=== PATIENT | female | born 1990 | race Caucasian/White ===

== ENCOUNTER 2017-06-23 11:53 | Emergency (ER) | payer MEDICAID, SELFPAY ==
[2017-06-23 11:54] VITALS: BP 100/61; PULSE 66; RESP 20; TEMP 36.8; O2SAT 99; BMI 25.0
--- NOTE | 2017-06-23 12:05 | XR_ITS ---
XR chest 2V HISTORY: ITS.REASON: CHEST PAIN ORDERING PHYSICIAN: Cate Salmon MD PATIENT AGE: 26 years COMPARISON: 06/26/2016 FINDINGS: The cardiomediastinal silhouette and pulmonary vascularity are within normal limits. The lungs are clear without infiltrates, suspicious nodules, or pleural effusions. No acute bony abnormalities. IMPRESSION: Negative chest, no acute finding
[2017-06-23 12:16] LABS: Microscopic, Urine URINE MICROSCOPIC (MICROSCOPIC)
[2017-06-23 12:19] LABS: Basophils % 0.3 % (0.1-2.0); Eosinophils # 0.1 K/mm3 (0.0-0.4); Eosinophils % 1.3 % (0.1-12.0); Hematocrit 42.9 % (37.0-47.0); Hemoglobin 14.4 g/dL (12.2-16.2); Lymphocytes # 2.2 K/mm3 (0.7-4.5); Lymphocytes % 27.7 K/mm3 (10-50); Mean Corpuscular HGB Conc 33.5 g/dL (31.8-35.4); Mean Corpuscular Hemoglobin 31.5 pg (27.0-31.2); Mean Corpuscular Volume 93.9 fl (81-99); Mean Platelet Volume 8.8 fl (7.4-10.4); Monocytes # 0.3 K/mm3 (0.1-1.0); Monocytes % 3.3 % (1.7-9.3); Neutrophils # 5.3 K/mm3 (1.8-7.8); Neutrophils % 67.4 % (37.0-80.0); Platelet Count 197 K/mm3 (142-424); Red Blood Count 4.57 M/mm3 (4.20-5.40); Red Cell Distribution Width 12.2 % (11.5-17.5); White Blood Count 7.9 K/mm3 (4.8-10.8)
[2017-06-23 12:21] LABS: Urine Pregnancy, HCG Qual. Negative (Negative)
[2017-06-23 12:22] LABS: Appearance,Urine CLEAR (Clear); Bilirubin,Urine Negative (Negative); Blood, Urine Negative (Negative); Color,Urine YELLOW (Yellow); Glucose,Urine (UA) Negative (Negative); Ketones,Urine Negative (Negative); Leukocyte Esterase,Urine 1+ (Negative); Nitrate,Urine Negative (Negative); Protein,Urine Negative (Negative); Urobilinogen,Urine 0.2 EU/dl (0.2)
[2017-06-23 12:25] LABS: Alanine Aminotransferase 28 U/L (12-78); Albumin Level 3.8 gm/dL (3.4-5.0); Albumin/Globulin Ratio 1.1 (1.1-1.8); Alkaline Phosphatase 57 U/L (46-116); Anion Gap 10.8 mEq/L (5-15); Aspartate Amino Transferase 16 U/L (15-37); Bilirubin,Total 0.4 mg/dL (0.2-1.0); Blood Urea Nitrogen 9 mg/dL (7-18); Calcium 8.8 mg/dL (8.5-10.1); Carbon Dioxide 27 mmol/L (21.0-32.0); Chloride 106 mmol/L (98-107); Creatinine Clearance Estimated 91 mL/min (0-300); Creatinine,Serum 0.93 mg/dL (0.55-1.02); Estimated Glomerular Filt Rate 73 ml/min (>60); GFR (African American) 89 ML/MIN (>60); Globulin 3.6 gm/dl (1.3-3.2); Glucose 90 mg/dL (74-106); Potassium 3.8 mmoL/L (3.5-5.1); Sodium 140 mmol/L (136-145); Total Protein,Serum 7.4 gm/dL (6.4-8.2)
--- NOTE | 2017-06-23 12:35 | HMH.EDCP ---
ED Disposition Clinical Impression: Atypical chest pain, Acute cervical myofascial strain, Tobacco abuse, Acute bronchitis, Left against medical advice Disposition: Home, Self-Care Condition on Discharge: Fair Referrals: Ludmila Murphy [Primary Care Provider] - - Critical Care Critical Care Time: No Attestation: On 06/23/17, the high probability of a clinically significant, sudden or life threatening deterioration of the following system(s) required my full and direct attention, intervention and personal management. The time I documented below is in addition to time spent performing reported procedures but includes the following listed in this critical care notation. Medical Decision Making - Dirk Inquiry Pt receiving controlled substance: No Dirk was queried for this patient: No Vital Signs: 06/23/17 11:54 Temperature 98.3 F Temperature Source Oral Pulse Rate [Right Brachial] 66 Respiratory Rate 20 Blood Pressure [Right Arm] 100/61 Blood Pressure Mean [Right Arm] 74 Blood Pressure Source [Right Arm] Automatic Cuff Blood Pressure Position [Right Arm] Supine 02 Sat by Pulse Oximetry 99 Oxygen Delivery Method Room Air - Lab Data Lab Results 06/23/17 12:02: Urine Color Yellow, Urine Appearance Clear, Urine pH 6.0, Ur Specific [place] 1.020, Urine Protein Negative, Urine Glucose (UA) Negative, Urine Ketones Negative, Urine Blood Negative, Urine Nitrate Negative, Urine Bilirubin Negative, Urine Urobilinogen 0.2, Ur Leukocyte Esterase 1+ A, Urine WBC 5-10, Ur Squamous Epith Cells 3-5, Urine Bacteria 1+, Urine Mucus Trace 06/23/17 12:02: WBC 7.9, RBC 4.57, Hgb 14.4, Hct 42.9, MCV 93.9, MCH 31.5 H, MCHC 33.5, RDW 12.2, Plt Count 197, MPV 8.8, Neut % (Auto) 67.4, Lymph % (Auto) 27.7, [place] % (Auto) 3.3, Eos % (Auto) 1.3, Baso % (Auto) 0.3, Neut # (Auto) 5.3, Lymph # (Auto) 2.2, [place] # (Auto) 0.3, Eos # (Auto) 0.1, Baso # (Auto) 0.0 06/23/17 12:02: Urine HCG, Qual Negative 06/23/17 12:02: Sodium 140, Potassium 3.8, Chloride 106, Carbon Dioxide 27, Anion Gap 10.8, BUN 9, Creatinine 0.93, Estimated Creat Clear 91, Estimated GFR 73, Est GFR ( Amer) 89, Glucose 90, Calcium 8.8, Total Bilirubin 0.4, AST 16, ALT 28, Alkaline Phosphatase 57, Total Protein 7.4, Albumin 3.8, Globulin 3.6 H, Albumin/Globulin Ratio 1.1 06/23/17 12:02: D-Dimer < 100 06/23/17 12:02: Total Creatine Kinase 66, CK-MB (CK-2) < 0.5, CK-MB (CK-2) Rel Index 0.8, Troponin I < 0.02 06/23/17 12:02: B-Natriuretic Peptide 15 Result diagrams: 06/23/17 12:02 06/23/17 12:02 Orders (Tests/Meds): ED MEDICATIONS Discontinued Medications Generic Name Dose Route Start Last Admin Trade Name Freq PRN Reason Stop Dose Admin Albuterol Sulfate 2.5 mg 06/23/17 12:34 Albuterol 0.083% 2.5mg/3ml [facility] 06/23/17 12:35 ONCE ONE Albuterol/Ipratropium 3 ml 06/23/17 13:18 Duoneb 3ml [facility] 06/23/17 13:19 ONCE ONE Methylprednisolone Sodium Succinate 125 mg 06/23/17 13:18 Solu-Medrol 125mg/2ml Vial IV 06/23/17 13:19 ONCE ONE ORDERS Category Date Time Status Chest XR 2 view (NOT portable) [XR chest 2V] Stat Exams 06/23/17 12:05 Taken Urine Culture Stat Micro 06/23/17 12:02 Received ECG Request by /Slim Stat Y 06/23/17 12:04 Ordered - ECG Data Tracing #1 Normal sinus 62/min baseline artifact nonspecific ST wave and T-wave changes no acute. ECG initial impression date: 06/23/17 ECG initial impression time: 12:37 Medical Decision Narrative: Although asked the patient in my HPI she had history of asthma she denied. Will order albuterol I was told that she has a neb machine at home that she uses for her bronchitis. Her d-dimer was normal. the patient had the breathing is better her chest tightness improved after the first breathing treatment she declined a second troponin and she will sign AGAINST MEDICAL ADVICE. Chest Pain HPI - General Chief Complaint: PAIN Stated Complaint: PAIN
[2017-06-23 12:37] LABS: Bacteria,Urine 1+ /lpf; Mucus,Urine Trace /lpf
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
[2017-06-23 12:59] LABS: CKMB Relative Index 0.8 U/L (0-4.0); Creatine Kinase 66 U/L (26-192); Creatine Kinase MB < 0.5 mg/ml (0.0-3.6); Troponin I < 0.02 ng/ml (0.00-0.06)
[2017-06-23 13:16] LABS: D-Dimer < 100 (0-400)
[2017-06-23 14:14] VITALS: BP 127/80; PULSE 78; RESP 16; TEMP 36.7; O2SAT 98
== END 2017-06-23 14:14 | disposition home or self-care (01) ==
PROVIDERS: Emergency Provider Emergency Medicine; Family Provider Family Medicine Geriatric Medicine; PCP Family Medicine Geriatric Medicine
DX: R07.89 Other chest pain (principal); S16.1XXA Strain of muscle, fascia and tendon at neck level, initial encounter; F17.210 Nicotine dependence, cigarettes, uncomplicated; J20.9 Acute bronchitis, unspecified
CPT/HCPCS: 71046; 80053; 81001; 81025; 82550; 82553; 83880; 84484; 85025; 85378; 87086; 93005; 96374; 99282

== ENCOUNTER → 2018-02-02 20:21 | Outpatient (CLI) | payer MEDICAID, SELFPAY | PROVIDERS: PCP Nurse Practitioner Family; Visit Provider Nurse Practitioner Family | DX: J02.9 Acute pharyngitis, unspecified (principal) ==

== ENCOUNTER 2018-08-10 15:05 | Outpatient (CLI) | payer MEDICAID, SELFPAY ==
[2018-08-10 15:30] VITALS: BP 107/55; PULSE 82; RESP 18; TEMP 37; O2SAT 97; BMI 32.0
== END 2018-08-10 16:00 | disposition home or self-care (01) ==
LOC: OBOUT 15:08 → OB 15:10
PROVIDERS: PCP Nurse Practitioner Family; Visit Provider Obstetrics & Gynecology
DX: O26.893 Other specified pregnancy related conditions, third trimester (principal); Z3A.29 29 weeks gestation of pregnancy; W01.0XXA Fall on same level from slipping, tripping and stumbling without subsequent striking against object, initial encounter
CPT/HCPCS: 59025

== ENCOUNTER 2018-08-10 16:05 | Emergency (ER) | payer MEDICAID, SELFPAY ==
[2018-08-10 16:10] VITALS: BP 108/69; PULSE 89; RESP 18; TEMP 36.6; O2SAT 98; BMI 32.2
[2018-08-10 16:18] VITALS: BP 108/69; PULSE 89; RESP 18; TEMP 36.6; O2SAT 98; BMI 32.0
--- NOTE | 2018-08-10 16:22 | XR_ITS ---
XR ankle RT min 3V HISTORY: ITS.REASON: fall, pain ORDERING PHYSICIAN: Norbert Barba MD PATIENT AGE: 27 years Comparison: None FINDINGS: No fracture or dislocation. No lytic or blastic change. There is normal mineralization.. The joint spaces are well-preserved. No significant degenerative/arthritic changes. No erosive changes evident. IMPRESSION: Negative ankle, no acute finding
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
[2018-08-10 17:05] VITALS: BP 108/69; PULSE 89; RESP 18; TEMP 36.6; O2SAT 98
== END 2018-08-10 17:13 | disposition home or self-care (01) ==
PROVIDERS: Emergency Provider Nurse Practitioner Family; PCP Nurse Practitioner Family
DX: S93.401A Sprain of unspecified ligament of right ankle, initial encounter (principal); W01.0XXA Fall on same level from slipping, tripping and stumbling without subsequent striking against object, initial encounter; Y92.019 Unspecified place in single-family (private) house as the place of occurrence of the external cause
CPT/HCPCS: 73610; 99201

== ENCOUNTER 2019-08-13 14:47 | Emergency (ER) | payer OTHER, MEDICAID, SELFPAY ==
[2019-08-13 14:48] VITALS: BMI 27.4
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
[2019-08-13 14:53] VITALS: BP 127/70; PULSE 89; RESP 16; TEMP 36.9; O2SAT 98
[2019-08-13 15:06] LABS: Basophils % 0.2 % (0.1-2.0); Eosinophils # 0.1 K/mm3 (0.0-0.4); Eosinophils % 1.1 % (0.1-12.0); Hematocrit 41.1 % (37.0-47.0); Hemoglobin 13.9 g/dL (12.2-16.2); Lymphocytes # 1.6 K/mm3 (0.7-4.5); Lymphocytes % 16.3 % (10-50); Mean Corpuscular HGB Conc 33.9 g/dL (31.8-35.4); Mean Corpuscular Hemoglobin 30.4 pg (27.0-31.2); Mean Corpuscular Volume 89.7 fl (81-99); Mean Platelet Volume 9.5 fl (7.4-10.4); Monocytes # 0.4 K/mm3 (0.1-1.0); Monocytes % 3.8 % (1.7-9.3); Neutrophils # 7.7 K/mm3 (1.8-7.8); Neutrophils % 78.6 % (37.0-80.0); Platelet Count 165 K/mm3 (142-424); Red Blood Count 4.58 M/mm3 (4.20-5.40); Red Cell Distribution Width 12.5 % (11.5-17.5); White Blood Count 9.7 K/mm3 (4.8-10.8)
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
[2019-08-13 15:12] LABS: Alanine Aminotransferase 25 U/L (12-78); Albumin Level 4.4 g/dl (3.5-5.0); Albumin/Globulin Ratio 1.8 (1.1-1.8); Alkaline Phosphatase 50 U/L (38-126); Anion Gap 8.4 mEq/L (5-15); Aspartate Amino Transferase 34 U/L (14-36); Bilirubin,Total 0.2 mg/dl (0.2-1.3); Blood Urea Nitrogen 11 mg/dl (7-17); Calcium 9.9 mg/dl (8.4-10.2); Carbon Dioxide 25 mmol/L (22.0-30.0); Chloride 107 mmol/L (98-107); Creatinine Clearance Estimated 129 mL/min (50-200); Estimated Glomerular Filt Rate 100 ml/min (>60); GFR (African American) 121 ML/MIN (>60); Globulin 2.5 g/dL (1.3-3.2); Glucose 122 mg/dl (74-100); Potassium 3.4 mmoL/L (3.5-5.1); Sodium 137 mmol/L (136-145); Total Protein,Serum 6.9 g/dl (6.3-8.2)
[2019-08-13 15:47] VITALS: BP 127/78; PULSE 74; RESP 20; O2SAT 100
[2019-08-13 16:30] VITALS: BP 112/68; PULSE 84; RESP 20; O2SAT 100
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
--- NOTE | 2019-08-13 16:44 | PC.NURSE ---
advised I could remove pt c-collar. Went in and removed c-collar at this time
--- NOTE | 2019-08-13 17:15 | PC.NURSE ---
WENT AND CLEANED ALL HER ABRASIONS , PT HAS A COUPLE THAT NEEDS SUTURED DR CANTRELL GOING BACK IN TO DO THAT
--- NOTE | 2019-08-13 18:28 | PC.NURSE ---
PSO dressing applied to lt knee and lt ankle
[2019-08-13 18:31] VITALS: BP 115/74; PULSE 78; RESP 16; TEMP 36.6; O2SAT 98
[2019-08-23 10:33] LABS: POC Glucose,Bedside 126 (70-110)
== END 2019-08-13 18:33 | disposition home or self-care (01) ==
PROVIDERS: Emergency Provider Family Medicine
DX: S91.012A Laceration without foreign body, left ankle, initial encounter (principal); V58.0XXA Driver of pick-up truck or van injured in noncollision transport accident in nontraffic accident, initial encounter; Y92.413 State road as the place of occurrence of the external cause; Z23 Encounter for immunization; S06.0X0A Concussion without loss of consciousness, initial encounter; S33.5XXA Sprain of ligaments of lumbar spine, initial encounter; M25.512 Pain in left shoulder; M25.562 Pain in left knee
CPT/HCPCS: 12001; 70450; 71045; 72125; 72170; 73030; 73090; 73560; 80053; 82962; 85025; 90471; 90715; 96374; 96375; 99282; J2405

== ENCOUNTER 2020-11-19 10:56 | Emergency (ER) | payer MEDICAID, SELFPAY ==
[2020-11-19 11:44] VITALS: BP 109/71; PULSE 73; RESP 19; TEMP 36.9; O2SAT 99; BMI 27.2
--- NOTE | 2020-11-19 11:51 | HMH.EDUTC ---
[facility] [place] Disposition Clinical Impression: Strep throat Disposition: Home, Self-Care Condition on Discharge: Good Instructions: DI for COVID-19 (Suspected or Confirmed ), Coronavirus Disease 2019, Preventing the Spread of Coronavirus Discharge Instructions, Strep Throat (Alternative Therapy), DI for Strep Throat Additional Instructions: *Monitor Temp, Over the counter Motrin or Tylenol as directed/as needed Tylenol every 4 hours and Motrin every 6 hours (as long as your family doctor has told you that you can take it) for fever or pain. and straight to ER if unable to lower temp less than 101.0 after medication given *Warm salt water gargles may help to soothe the throat *Throat Lozenges *Warm fluids like tea with honey may help to soothe the throat *Sleep elevated *Humidifier/Vaporizer *Bromfed may cause drowsiness. Know how it effects you (your child) before driving, caring for small child, or sending your child to school. Not other antihistamines/allergy medications while taking bromfed Your throat swab was sent for culture. Those results are typically sent to your primary care. Be sure to follow up in 2-3 days with your family doctor/primary care physician if no improvement so they can review those result and treat if necessary. If you don?t have a primary care doctor, I recommend you get one but in the mean time, you will have to return to a walk in clinic Follow up IMMEDIATELY for new or worsening symptoms or no Noticeable improvement over the next 48-72 hours. 911 for difficulty breathing or swallowing You were tested for today for COVID19 your test result should be back in the next 24-48 hours, you may call to the [facility] to see if your test results are back in the next 48 hours [phone] [facility] hours are 9am-9pm You was given a handout with instructions for Self Quarantine and Self isolation for while you wait on test results and what to do if they are positive If you are positive the Health Dept will be contacting you also Prescriptions: Amoxicillin [Amoxicillin 500mg Cap] 500 mg PO TID #30 cap Transmission Status: Pending to [facility] Brompheniramine/Pseudoephed/Dm [Bromfed Dm Cough Syrup] 5 - 10 ml PO Q46H PRN #200 ml PRN Reason: Cough Transmission Status: Pending to [facility] Fluconazole [Diflucan 150mg tab] 150 mg PO ONCE #1 tab Transmission Status: Pending to [facility] Referrals: Ludmila Murphy [Primary Care Provider] - As needed Forms: Work/School Release Time of Disposition: 11:56 Medical Decision Making - Dirk Inquiry Pt receiving controlled substance: No Dirk was queried for this patient: No Vital Signs: 11/19/20 11:44 Temperature 98.4 F Temperature Source Oral Pulse Rate [Left] 73 Respiratory Rate 19 Blood Pressure [Right Arm] 109/71 L Blood Pressure Mean [Right Arm] 83 02 Sat by Pulse Oximetry 99 - Lab Data Lab results reviewed: Yes: I reviewed the patient's lab results. Orders (Tests/Meds): ORDERS Category Date Time Status Covid-19 Nasal PCR ([facility]) Routine Lab 11/19/20 11:46 Ordered Medical Decision Narrative: Patient reports had Tubal [facility] [place] HPI - General Stated complaint: sore throat, congestion, ear pain Time Seen by Provider: 11/19/20 11:51 Mode of Arrival: Ambulatory Source of Information: Patient Limitations: No Limitations Description of Symptoms (Recalled from Triage Doc. by RN): pt c/o sore throat, WALKER, ear and chest pain, and soa ongoing for two days. HEENT Symptoms (Recalled from RN notes): Yes (sore throat, ear aches, WALKER) Resp Symptoms (Recalled from RN notes): Yes (soa) Skin Symptoms (Recalled from RN notes): No MS Symptoms (Recalled from RN notes): No Functional Status (Recalled from RN notes): na - History of Present Illness Provider Complaint: Patient state that she has been having sore throat States her throat has blisters on it and it rivas in her chest when she coughs States that she has been having fa
[2020-11-19 11:59] VITALS: BP 113/74; PULSE 74; RESP 18; TEMP 36.9
[2020-11-19 12:04] LABS: UTC Strep Screen (Rapid) Positive (Negative)
== END 2020-11-19 12:05 | disposition home or self-care (01) ==
PROVIDERS: Emergency Provider Nurse Practitioner; PCP Family Medicine Geriatric Medicine
DX: J02.0 Streptococcal pharyngitis (principal); Z20.822 Contact with and (suspected) exposure to COVID-19
CPT/HCPCS: 87880; 99203; G0463; U0003

== ENCOUNTER → 2021-01-15 16:20 | Outpatient (CLI) | payer MEDICAID, SELFPAY | PROVIDERS: PCP Family Medicine Geriatric Medicine; Visit Provider Nurse Practitioner | DX: Z20.822 Contact with and (suspected) exposure to COVID-19 (principal) | CPT/HCPCS: C9803; U0003; U0005 ==

== ENCOUNTER 2021-03-30 11:02 | Emergency (ER) | payer MEDICAID, SELFPAY ==
[2021-03-30 12:57] VITALS: BP 0/0; PULSE 0; RESP 0; TEMP -17.7; TEMP 0
== END 2021-03-30 12:58 | disposition left against medical advice (07) ==
PROVIDERS: Emergency Provider Nurse Practitioner; PCP Family Medicine Geriatric Medicine
DX: Z20.822 Contact with and (suspected) exposure to COVID-19 (principal)

== ENCOUNTER → 2021-05-03 19:14 | Outpatient (CLI) | payer MEDICAID, SELFPAY | PROVIDERS: Visit Provider Nurse Practitioner Family | DX: Z20.822 Contact with and (suspected) exposure to COVID-19 (principal) | CPT/HCPCS: C9803; U0003; U0005 ==

== ENCOUNTER → 2021-05-05 19:50 | Outpatient (CLI) | payer MEDICAID, SELFPAY | PROVIDERS: Visit Provider Nurse Practitioner Family | DX: U07.1 COVID-19 (principal) | CPT/HCPCS: C9803; U0003; U0005 ==

== ENCOUNTER 2021-05-10 15:25 | Emergency (ER) | payer MEDICAID, SELFPAY ==
--- NOTE | 2021-05-10 15:38 | HMH.EDUTC ---
[facility] [place] Disposition Clinical Impression: COVID-19 virus test result unknown Disposition: Home, Self-Care Condition on Discharge: Good Instructions: Preventing the Spread of Coronavirus Discharge Instructions, DI for COVID-19 (Suspected or Confirmed ) Additional Instructions: Drink plenty of fluids. Take tylenol for pain or fever. Return if you begin to have difficulty breathing. Follow up with your regular doctor. GO TO THE ER FOR ANY WORSENING SYMPTOMS Quarantine until you know the results of your covid-19 test. Notify your school or workplace of your results and follow their instructions regarding return to work/school. Referrals: Ludmila Murphy [Primary Care Provider] - Time of Disposition: 16:02 Medical Decision Making - Medical Records Medical records reviewed: No: I reviewed the patient's medical records. - Dirk Inquiry Pt receiving controlled substance: No [facility] [place] HPI - General Stated complaint: covid test Time Seen by Provider: 05/10/21 15:38 - History of Present Illness Provider Complaint: She is here to have a covid-19 test done. She needs a negative one to start her new job at [employer]. She had covid-19 about 2 weeks ago, but she states that she is completely better. - Related Data Home Medications Medication Instructions Recorded Confirmed levonorgestrel 0.15 mg-ethinyl 1 tab PO tab 05/03/21 05/05/21 estradiol 30 mcg tablets,3 mos pack(91) naproxen 500 mg tablet 500 mg PO tab 05/03/21 05/05/21 Allergies Allergy/AdvReac Type Severity Reaction Status Date / Time No Known Allergies Allergy Verified 05/05/21 12:06 [facility] History - Hepatitis A Screen Attestation statement:: This patient has been screened for Hepatitis A risk factors. I have reviewed the patient's past medical history: Yes Other Medical History: Reports: Other Other Surgeries: Yes: Cholecystectomy, Dilation and Curettage, Other. No: Comment: wisdom teeth - Social History Smoking Status: Former smoker Tobacco Type: cigarettes Alcohol Intake: never Alcohol Intake Frequency:: holidays/special occasions only Occupational Status: employed Household Members: family Family Hx:: No significant family history ROS Obtained: Yes All systems reviewed & no additional complaints - Constitutional Constitutional: Reports system reviewed and no additional complaints, except as docu - Eyes Eyes: Reports system reviewed and no additional complaints, except as docu - ENT Ears, Nose, Mouth, and Throat: Reports system reviewed and no additional complaints, except as docu - Cardiovascular Cardiovascular: Reports system reviewed and no additional complaints, except as docu - Respiratory Respiratory: Reports system reviewed and no additional complaints, except as docu - Gastrointestinal Gastrointestingal: Reports: system reviewed and no additional complaints, except as docu Physical Exam - General General appearance: alert, in no apparent distress - Head Head exam: atraumatic, normocephalic, normal inspection - Eye Eye exam: Present: normal appearance, PERRL, EOMI - ENT ENT exam: Present: normal exam, normal oropharynx, mucous membranes moist, TM's normal bilaterally, normal external ear exam - Neck Neck exam: Present: normal inspection, full ROM, trachea midline. Absent: meningismus, lymphadenopathy - Chest Chest inspection: Present: normal inspection, symmetric chest wall rise. Absent: tenderness - Respiratory Respiratory exam: Present: normal lung sounds bilaterally. Absent: respiratory distress - Cardiovascular Cardiovascular exam: Present: regular rate, normal rhythm. Absent: JVD - Abdominal Exam Abdominal exam: Present: soft, normal bowel sounds. Absent: distention, tenderness, guarding - Extremities Exam Extremities exam: Present: normal inspection, full ROM, normal capillary refill. Absent: calf tenderness - Back Exam Back exam: Present: normal inspect
[2021-05-10 16:15] VITALS: BP 00/0; PULSE 0; RESP 0; TEMP -17.7; TEMP 0
[2021-05-10 16:18] VITALS: BP 121/72; PULSE 72; RESP 18; TEMP 37.6; O2SAT 98; BMI 31.2
== END 2021-05-10 16:21 | disposition home or self-care (01) ==
PROVIDERS: Emergency Provider Nurse Practitioner Family; PCP Family Medicine Geriatric Medicine
DX: Z20.822 Contact with and (suspected) exposure to COVID-19 (principal); F17.290 Nicotine dependence, other tobacco product, uncomplicated
CPT/HCPCS: 99202; C9803; G0463; U0003; U0005

== ENCOUNTER 2021-10-01 14:02 | Emergency (ER) | payer MEDICAID, SELFPAY ==
--- NOTE | 2021-10-01 14:07 | XR_ITS ---
FINAL REPORT CLINICAL HISTORY: pain, pt states that she has been experiencing pain in her c-spine and right shoulder for about a month and this morning she pulled up on her truck to get in and felt a pop now she is experiencing worsening pain with lack of mobility. FINDINGS: RIGHT SHOULDER: 3 views of the right shoulder were obtained. There is no acute fracture or dislocation. The joint spaces are intact. There is no soft tissue abnormality. IMPRESSION: No acute fracture Reviewed, Interpreted and Dictated by Ravi Khan III, MD Transcribed by Brie Mckeon Authenticated and [facility]
--- NOTE | 2021-10-01 14:07 | XR_ITS ---
FINAL REPORT CLINICAL HISTORY: pain, pt states that she has been experiencing pain in her c-spine and right shoulder for about a month and this morning she pulled up on her truck to get in and felt a pop now she is experiencing worsening pain with lack of mobility. FINDINGS: CERVICAL SPINE 3 were obtained. There is no acute fracture. There is no malalignment. There is straightening of the normal cervical curvature which could be due to positioning or muscle spasm. The disc spaces are preserved. There is no soft tissue abnormality. IMPRESSION: No acute bony abnormality. Reviewed, Interpreted and Dictated by Ravi Khan III, MD Transcribed by Brie Mckeon Authenticated and [facility]
--- NOTE | 2021-10-01 14:08 | HMH.EDUTC ---
[facility] [place] Disposition Clinical Impression: Torticollis Disposition: Home, Self-Care Condition on Discharge: Good Instructions: Torticollis, DI for Torticollis, Methylprednisolone Injection, Ketorolac Injection Additional Instructions: Go home and rest. It would be best if you rested tomorrow too. No heavy lifting. No twisting. Take the oral medications as directed. The muscle relaxer (cyclobenzaprine--Flexeril) will make you drowsy, so don't drive or operate heavy machinery after taking it. Don't start the oral steroids (medrol dose pack) until tomorrow, since you had the shots in here today. Follow up with your regular doctor. GO TO THE ER FOR ANY WORSENING SYMPTOMS OR CONCERN Prescriptions: Cyclobenzaprine HCl [Cyclobenzaprine 10mg Tab] 10 mg PO BIDP PRN #20 tab PRN Reason: Muscle Spasm Transmission Status: Received by [facility] methylPREDNISolone [Medrol] 4 mg PO DIRECTED 6 Days #21 packet Transmission Status: [facility] Referrals: Sharmin Awad APRN [Primary Care Provider] - Forms: Work/School Release Time of Disposition: 15:00 Medical Decision Making - Medical Records Medical records reviewed: No: I reviewed the patient's medical records. - Dirk Inquiry Pt receiving controlled substance: No Vital Signs: 10/01/21 14:18 10/01/21 15:02 Temperature 98.8 F 98.8 F Temperature Source Oral Pulse Rate 74 Pulse Rate [Left Radial] 74 Respiratory Rate 17 17 Blood Pressure 100/65 L Blood Pressure [Right Arm] 100/65 L Blood Pressure Mean [Right Arm] 76 02 Sat by Pulse Oximetry 100 Orders (Tests/Meds): ED MEDICATIONS Discontinued Medications Generic Name Dose Route Start Last Admin Trade Name Freq PRN Reason Stop Dose Admin Ketorolac Tromethamine 60 mg 10/01/21 14:43 10/01/21 14:59 Ketorolac 60mg/2ml Vial IM 10/01/21 14:44 60 mg ONCE ONE Administration Methylprednisolone Sodium Succinate 125 mg 10/01/21 14:43 10/01/21 14:59 Methylprednisolone Sod Succ 125mg Vial IM 10/01/21 14:44 125 mg ONCE ONE Administration [facility] [place] HPI - General Stated complaint: rt shoulder pain Time Seen by Provider: 10/01/21 14:08 - History of Present Illness Provider Complaint: She states that for around the last 3 weeks she has had a stiff neck, pain with turning her neck certain ways, and upper back pain that radiates to her right shoulder and to her neck at times. She denies any falls or injuries that preceded her symptoms starting. - Related Data Home Medications Medication Instructions Recorded Confirmed levonorgestrel 0.15 mg-ethinyl 1 tab PO tab 05/03/21 05/05/21 estradiol 30 mcg tablets,3 mos pack(91) naproxen 500 mg tablet 500 mg PO tab 05/03/21 05/05/21 Previous Rx's Medication Instructions Recorded Cyclobenzaprine HCl 10 mg PO BIDP PRN #20 tab 10/01/21 [Cyclobenzaprine 10mg Tab] methylPREDNISolone [Medrol] 4 mg PO DIRECTED 6 Days #21 10/01/21 packet Allergies Allergy/AdvReac Type Severity Reaction Status Date / Time No Known Allergies Allergy Verified 10/01/21 14:22 [facility] History - Hepatitis A Screen Attestation statement:: This patient has been screened for Hepatitis A risk factors. I have reviewed the patient's past medical history: Yes Other Medical History: Reports: Other Other Surgeries: Yes: Cholecystectomy, Dilation and Curettage, Other. No: Comment: wisdom teeth - Social History Smoking Status: Former smoker Tobacco Type: cigarettes Alcohol Intake: never Alcohol Intake Frequency:: holidays/special occasions only Occupational Status: employed Household Members: family Family Hx:: No significant family history ROS Obtained: Yes All systems reviewed & no additional complaints - Constitutional Constitutional: Denies chills, Denies fever(s), Denies headache(s), Denies lethargy, Denies malaise - Eyes Eyes: Denies change in vision, Denies dry eyes - EN
[2021-10-01 14:18] VITALS: BP 100/65; PULSE 74; RESP 17; TEMP 37.1; O2SAT 100; BMI 29.2
[2021-10-01 15:02] VITALS: BP 100/65; PULSE 74; RESP 17; TEMP 37.1
== END 2021-10-01 15:09 | disposition home or self-care (01) ==
PROVIDERS: Emergency Provider Nurse Practitioner Family; PCP Nurse Practitioner Family
DX: M25.511 Pain in right shoulder (principal); M43.6 Torticollis
CPT/HCPCS: 72040; 73030; 96374; 99284

== ENCOUNTER 2021-10-18 22:59 | Emergency (ER) | payer MEDICAID, SELFPAY ==
[2021-10-18 23:12] VITALS: BP 100/60; PULSE 88; RESP 18; TEMP 36.8; O2SAT 98; BMI 29.2
--- NOTE | 2021-10-18 23:18 | CT_ITS ---
PROCEDURE INFORMATION: Exam: CT Abdomen And Pelvis Without Contrast Exam date and time: 10/18/2021 11:29 PM Age: 31 years old Clinical indication: Abdominal pain; Other: Lower abdomen and bilateral flanks; Prior surgery; Surgery date: 6+ months; Surgery type: Gb tubal ligation; Additional info: Abd pain TECHNIQUE: Imaging protocol: Computed tomography of the abdomen and pelvis without contrast. Radiation optimization: All CT scans at this facility use at least one of these dose optimization techniques: automated exposure control; mA and/or kV adjustment per patient size (includes targeted exams where dose is matched to clinical indication); or iterative reconstruction. COMPARISON: ABDPELW CT ABD PELVIS W/ CONTRAST 04/15/2016 9:34 PM FINDINGS: Liver: Normal. Gallbladder and bile ducts: Gallbladder surgically absent. Pancreas: Normal. Spleen: Splenic calcifications, compatible with prior granulomatous disease. Adrenal glands: Normal. No mass. Kidneys and ureters: Mild right hydroureteronephrosis, without obstructive etiology identified. No urolithiasis. Stomach and bowel: Normal. Appendix: Appendix normal. Intraperitoneal space: Unremarkable. No free air. No significant fluid collection. Vasculature: Unremarkable. No abdominal aortic aneurysm. Lymph nodes: Unremarkable. No enlarged lymph nodes. Urinary bladder: Findings may be secondary to ongoing urinary bladder pathology. Moderate urinary bladder wall thickening with adjacent associated fat stranding, compatible with acute cystitis. Reproductive: Unremarkable as visualized. Bones/joints: No acute abnormality. Soft tissues: Small fat containing periumbilical hernias, without acute complications. IMPRESSION: 1. Moderate urinary bladder wall thickening with adjacent associated fat stranding, compatible with acute cystitis. 2. Mild right hydroureteronephrosis, without obstructive etiology identified. Findings may be secondary to ongoing urinary bladder pathology. No urolithiasis.
[2021-10-18 23:27] LABS: Microscopic, Urine URINE MICROSCOPIC (MICROSCOPIC)
[2021-10-18 23:29] LABS: Appearance,Urine CLOUDY (Clear); Bilirubin,Urine Negative (Negative); Blood, Urine 3+ (Negative); Color,Urine YELLOW (Yellow); Glucose,Urine (UA) Negative (Negative); Ketones,Urine Negative (Negative); Leukocyte Esterase,Urine 2+ (Negative); Nitrate,Urine POSITIVE (Negative); PH,Urine 6.5 (5.0-8.5); Protein,Urine 2+ (Negative)
[2021-10-18 23:29] LABS: Basophils # 0.2 K/mm3 (0-0.2); Basophils % 1.5 % (0.1-2.0); Eosinophils # 0.2 K/mm3 (0.0-0.4); Eosinophils % 1.8 % (0.1-12.0); Hematocrit 43.7 % (37.0-47.0); Lymphocytes # 2.2 K/mm3 (0.7-4.5); Mean Corpuscular HGB Conc 32.1 g/dL (31.8-35.4); Mean Corpuscular Hemoglobin 32.5 pg (27.0-31.2); Mean Corpuscular Volume 101.3 fl (81-99); Mean Platelet Volume 8.8 fl (7.4-10.4); Monocytes # 0.6 K/mm3 (0.1-1.0); Monocytes % 5.9 % (1.7-9.3); Neutrophils # 6.6 K/mm3 (1.8-7.8); Neutrophils % 67.8 % (37.0-80.0); Platelet Count 179 K/mm3 (142-424); Red Blood Count 4.31 M/mm3 (4.20-5.40); White Blood Count 9.7 K/mm3 (4.8-10.8)
[2021-10-18 23:32] LABS: RBC,Urine 20-50 #/hpf (0-3); WBC,Urine TNTC #/hpf (0-3)
[2021-10-18 23:36] LABS: Amylase 63 U/L (30-110); Anion Gap 11.6 mEq/L (5-15); Blood Urea Nitrogen 12 mg/dl (7-17); Calcium 9.3 mg/dl (8.4-10.2); Carbon Dioxide 28 mmol/L (22.0-30.0); Chloride 100 mmol/L (98-107); Creatinine Clearance Estimated 110 mL/min (50-200); Estimated Glomerular Filt Rate 84 ml/min (>60); GFR (African American) 102 ML/MIN (>60); Glucose 111 mg/dl (74-100); Lipase 80 U/L (23-300); Magnesium 1.7 mg/dl (1.6-2.3); Potassium 3.6 mmoL/L (3.5-5.1); Sodium 136 mmol/L (136-145)
[2021-10-18 23:54] LABS: Procalcitonin 0.046 ng/mL (0.0-2.0)
[2021-10-18 23:58] LABS: Erythrocyte Sedimentation Rate 13 mm/hr (0-20)
--- NOTE | 2021-10-19 00:02 | HMH.EDUROGF ---
ED Disposition Clinical Impression: UTI (urinary tract infection) Qualifiers: Urinary tract infection type: acute cystitis Hematuria presence: without hematuria Qualified Code(s): N30.00 - Acute cystitis without hematuria Disposition: Home, Self-Care Condition on Discharge: Good Instructions: DI for Urinary Tract Infection (UTI) Additional Instructions: use meds and call pcp for urine culture results and follow up Prescriptions: levoFLOXacin [Levaquin 500mg tab] 500 mg PO DAILY #7 tab Transmission Status: Pending to [facility] Phenazopyridine HCl [Pyridium 200mg Tablet] 200 pow PO TID #6 tab Transmission Status: Pending to [facility] Referrals: Sharmin Awad APRN [Primary Care Provider] - - Critical Care Critical Care Time: No Attestation: On 10/18/21, the high probability of a clinically significant, sudden or life threatening deterioration of the following system(s) required my full and direct attention, intervention and personal management. The time I documented below is in addition to time spent performing reported procedures but includes the following listed in this critical care notation. Medical Decision Making - Medical Records Medical records reviewed: Yes: I reviewed the patient's medical records. - Dirk Inquiry Pt receiving controlled substance: No Vital Signs: 10/18/21 23:12 10/19/21 00:51 Temperature 98.2 F 98.2 F Temperature Source Oral Oral Pulse Rate 71 Pulse Rate [Apical] 88 Respiratory Rate 18 16 Blood Pressure 101/61 L Blood Pressure [Right Arm] 100/60 L Blood Pressure Mean [Right Arm] 73 Blood Pressure Source Automatic Cuff Blood Pressure Source [Right Arm] Automatic Cuff Blood Pressure Position Sitting Blood Pressure Position [Right Arm] Sitting 02 Sat by Pulse Oximetry 98 99 Oxygen Delivery Method Room Air Room Air - Lab Data Lab results reviewed: Yes: I reviewed the patient's lab results. Lab Results 10/18/21 23:12: Urine Color Yellow, Urine Appearance Cloudy, Urine pH 6.5, Ur Specific [place] 1.020, Urine Protein 2+, Urine Glucose (UA) Negative, Urine Ketones Negative, Urine Blood 3+, Urine Nitrate Positive, Urine Bilirubin Negative, Urine Urobilinogen 1.0, Ur Leukocyte Esterase 2+ A, Urine RBC 20-50, Urine WBC Tntc 10/18/21 23:15: WBC 9.7, RBC 4.31, Hgb 14.0, Hct 43.7, MCV 101.3 H, MCH 32.5 H, MCHC 32.1, RDW 13.0, Plt Count 179, MPV 8.8, Neut % (Auto) 67.8, Lymph % (Auto) 23.0, [place] % (Auto) 5.9, Eos % (Auto) 1.8, Baso % (Auto) 1.5, Neut # (Auto) 6.6, Lymph # (Auto) 2.2, [place] # (Auto) 0.6, Eos # (Auto) 0.2, Baso # (Auto) 0.2, ESR 13 10/18/21 23:15: Sodium 136, Potassium 3.6, Chloride 100, Carbon Dioxide 28, Anion Gap 11.6, BUN 12, Creatinine 0.80, Estimated Creat Clear 110, Estimated GFR 84, Est GFR ( Amer) 102, Glucose 111 H, Calcium 9.3, Magnesium 1.7, Amylase 63, Lipase 80, Procalcitonin 0.046 Result diagrams: 10/18/21 23:15 10/18/21 23:15 Orders (Tests/Meds): ED MEDICATIONS Generic Name Dose Route Start Last Admin Trade Name Freq PRN Reason Stop Dose Admin Sodium Chloride 1,000 mls @ 999 mls/hr 10/18/21 23:30 10/18/21 23:34 Sod Chlor 0.9% 1000ml Bag IV 10/19/21 00:30 999 mls/hr .Q1H1M ROBERTO Administration Ceftriaxone Sodium 1 gm/ 50 mls @ 100 mls/hr 10/19/21 00:15 10/19/21 00:06 Sodium Chloride IV 11/02/21 00:14 100 mls/hr Q24H ROBERTO Administration Discontinued Medications Generic Name Dose Route Start Last Admin Trade Name Freq PRN Reason Stop Dose Admin Acetaminophen/Codeine Phosphate 1 packet 10/19/21 00:55 10/19/21 00:56 Acetaminophen 300mg W/Codeine 30mg Take Home Pack (6) PO 10/19/21 00:56 1 packet ONCE ONE Administration Ketorolac Tromethamine 30 mg 10/18/21 23:18 10/18/21 23:33 Ketorolac 30mg/Ml Vial IV 10/18/21 23:19 30 mg ONCE ONE Administration Ondansetron HCl 4 mg 10/18/21 23:18 10/18/21 23:34 Ondansetron 4mg/2ml Vial IV 10/18/21 23:19 4 mg ON
[2021-10-19 00:51] VITALS: BP 101/61; PULSE 71; RESP 16; TEMP 36.8; O2SAT 99
[2021-10-19 00:57] VITALS: BP 101/60; PULSE 72; RESP 16; TEMP 36.2
== END 2021-10-19 01:09 | disposition home or self-care (01) ==
PROVIDERS: Emergency Provider Emergency Medicine; PCP Nurse Practitioner Family
DX: N30.00 Acute cystitis without hematuria (principal)
CPT/HCPCS: 74176; 80048; 81001; 82150; 83690; 83735; 84145; 85025; 85651; 87086; 87088; 87186; 96365; 96375; 99284; J0696; J2405

== ENCOUNTER 2022-01-16 10:04 | Emergency (ER) | payer MEDICAID, SELFPAY ==
--- NOTE | 2022-01-16 10:24 | EXP.UTC ---
Discharge Plan Disposition Patient Disposition: Home, Self-Care Condition: Good Prescriptions Prescriptions: New amoxicillin [amoxicillin] 500 mg tablet 500 mg PO TID 10 Days Qty: 30 0RF methylprednisolone 4 mg Tablets,Dose Pack 4 mg PO DIRECTED Qty: 21 0RF agcdjudldidkhfk-pcmucveok-WZ [Bromfed DM] 2-30-10 mg/5 mL Syrup 5 ml PO Q6H PRN (Reason: Cough) Qty: 240 0RF fluconazole [Diflucan] 150 mg tablet 150 mg PO ONCE Qty: 1 2RF No Action naproxen 500 mg tablet 500 mg PO Label Comments: TAKE 1 TABLET BY MOUTH TWICE DAILY WITH MEALS levonorgestrel-ethinyl estrad [Jolessa] 0.15 mg-30 mcg (91) tablets,dose pack,3 month 1 tab PO levofloxacin 500 MG tablet 500 mg PO DAILY Qty: 7 0RF phenazopyridine 200 MG tablet 200 pow PO TID Qty: 6 0RF cyclobenzaprine 10 MG tablet 10 mg PO BIDP PRN (Reason: Muscle Spasm) Qty: 20 0RF methylprednisolone 4 MG tablets,dose pack 4 mg PO DIRECTED 6 Days Qty: 21 0RF Referrals Follow up/Referrals: Sharmin Awad APRN [Primary Care Provider] - See instructions Activity Restrictions/Add. Instructions Additional Instructions/Restrictions: Drink plenty of fluids. Take tylenol or ibuprofen for pain or fever. Take the medications as directed. Follow up with your regular doctor. GO TO THE ER FOR ANY WORSENING SYMPTOMS Throw your tooth brush away and get a new one. Clinical Impressions Clinical Impression: Strep throat Instructions Patient Instructions: DI for Strep Throat Discharge ED Provider: Valdez Mosley [facility] General Stated complaint: sore throat, congestion, h/a Time Seen by Provider: 01/16/22 10:26 History of Present Illness Provider Complaint: She states that she has had a sore throat for the past 2 days. Her son was diagnosed with strep throat around 5 days ago. Related Data Home Medications Medication Instructions Recorded Confirmed levonorgestrel 0.15 mg-ethinyl 1 tab PO 05/03/21 05/05/21 estradiol 30 mcg tablets,3 mos pack(91) (Jolessa) naproxen 500 mg tablet 500 mg PO 05/03/21 05/05/21 Previous Rx's Medication Instructions Recorded cyclobenzaprine 10 mg tablet 10 mg PO BIDP PRN Muscle Spasm #20 10/01/21 tabs methylprednisolone 4 mg tablets in 4 mg PO DIRECTED 6 days #21 10/01/21 a dose pack packets levofloxacin 500 mg tablet 500 mg PO DAILY #7 tabs 10/19/21 phenazopyridine 200 mg tablet 200 pow PO TID #6 tabs 10/19/21 amoxicillin 500 mg tablet 500 mg PO TID 10 days #30 tabs 01/16/22 mrjjlodkoztsgqr-kniojkxwmqyuzth-JB 5 ml PO Q6H PRN Cough #240 mL 01/16/22 2 mg-30 mg-10 mg/5 mL oral syrup (Bromfed DM) fluconazole 150 mg tablet 150 mg PO ONCE #1 tab 01/16/22 (Diflucan) methylprednisolone 4 mg tablets in 4 mg PO DIRECTED #21 tabs 01/16/22 a dose pack Allergies Allergy/AdvReac Type Severity Reaction Status Date / Time No Known Allergies Allergy Verified 01/16/22 10:32 [facility] Social History Smoking Status: Former smoker alcohol intake: never current occupational status: employed Travel in the last 8 weeks: None household members: family ROS Obtained: Yes All systems reviewed & no additional complaints except as documented Constitutional Constitutional: Reports chills and Reports fever(s) Eyes Eyes: Denies eye discharge ENT Ears, Nose, Mouth, and Throat: Reports as per HPI Cardiovascular Cardiovascular: Denies chest pain Respiratory Respiratory: Denies chest congestion and Reports cough Gastrointestinal Gastrointestingal: Reports nausea; Denies abdominal pain, constipation, cramping, diarrhea or vomiting Musculoskeletal Musculoskeletal: Denies arthralgias Integumentary/Breasts Skin/Breast: Denies rash Neurologic Neurologic: Denies paresthesias Physical Exam General General appearance: alert and in no apparent distress Head Head exam: atraumatic, normocephalic and n
[2022-01-16 10:26] VITALS: BP 124/66; PULSE 75; RESP 18; TEMP 36.6; O2SAT 99; BMI 31.1
[2022-01-16 10:37] LABS: UTC Strep Screen (Rapid) Negative (Negative)
[2022-01-16 11:01] VITALS: BP 124/66; PULSE 75; RESP 18; TEMP 36.6
== END 2022-01-16 11:04 | disposition home or self-care (01) ==
PROVIDERS: Emergency Provider Nurse Practitioner Family; PCP Nurse Practitioner Family
DX: J02.9 Acute pharyngitis, unspecified (principal)
CPT/HCPCS: 87880; 99212; G0463

== ENCOUNTER 2022-02-14 10:11 | Emergency (ER) | payer OTHER, MEDICAID, SELFPAY ==
[2022-02-14 11:00] VITALS: BP 125/72; PULSE 75; RESP 20; TEMP 36.6; O2SAT 100; BMI 22.3
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
[2022-02-14 12:07] VITALS: BP 112/62; PULSE 68; RESP 20; TEMP 36.6; O2SAT 99
== END 2022-02-14 12:08 | disposition home or self-care (01) ==
PROVIDERS: Emergency Provider Student in an Organized Health Care Education/Training Program; PCP Nurse Practitioner Family
DX: S70.02XA Contusion of left hip, initial encounter (principal); Z79.1 Long term (current) use of non-steroidal anti-inflammatories (NSAID); Z79.3 Long term (current) use of hormonal contraceptives; Z79.52 Long term (current) use of systemic steroids; Z79.899 Other long term (current) drug therapy; V49.40XA Driver injured in collision with unspecified motor vehicles in traffic accident, initial encounter
CPT/HCPCS: 99283

== ENCOUNTER 2022-03-26 14:31 | Emergency (ER) | payer MEDICAID, SELFPAY ==
[2022-03-26] VITALS (8 sets, daily range): BP systolic 102–118; BP diastolic 58–75; PULSE 100–109; RESP 16–20; TEMP 36.4; O2SAT 98–99; BMI 30.2
--- NOTE | 2022-03-26 15:06 | CT_ITS ---
FINAL REPORT CLINICAL HISTORY: s/p hysterectomy, severe pain lower abd COMPARISON: 10/19/2021 FINDINGS: CT OF THE ABDOMEN AND PELVIS WITH CONTRAST Axial CT images of the abdomen and pelvis were obtained after the administration of oral and iv contrast. Coronal reformatted images were also obtained and reviewed.This study was performed with techniques to keep radiation doses as low as reasonably achievable (ALARA). Individualized dose reduction techniques using automated exposure control or adjustment of mA and/or kV according to the patient''s size were employed. Abdomen: The lung bases are clear. The heart is normal in size. The liver has an unremarkable appearance, without evidence of mass or biliary ductal dilatation. The spleen is unremarkable. No adrenal mass is present. The pancreas has an unremarkable appearance. The kidneys are normal, without evidence of mass or hydronephrosis. The aorta is normal in caliber. There is a small to mild of of free fluid in the abdomen. There is an umbilical hernia measuring 31 mm in transverse dimension containing fat. Pelvis: There has been presumed interval hysterectomy. Heterogeneous material is seen in the pelvis measuring up to 9.3 cm in transverse dimension, favor hemoperitoneum. Additionally, there appears to be a focal collection superior to this measuring 40 mm, worrisome for abscess. The appendix is not visualized. There is rectosigmoid wall thickening which may be related to edema or inflammation. There are multiple fluid-filled bowel loops which are nonspecific. The urinary bladder is unremarkable. IMPRESSION: Small to moderate amount of free fluid in the abdomen. Interval hysterectomy with heterogeneous material in the pelvis favored represent hemoperitoneum with additional fluid collection measuring 40 mm worrisome for abscess. Rectosigmoid wall thickening which may represent edema or inflammation. Reviewed, Interpreted and Dictated by Ravi Khan III, MD Transcribed by Stacey Hauser Authenticated and [facility]
--- NOTE | 2022-03-26 15:09 | HMH.EDGENADL ---
Discharge Plan Disposition Patient Disposition: Xfer Short-Term Hosp Condition: Fair Chief Complaint: Abdominal Pain Prescriptions Prescriptions: No Action naproxen 500 mg tablet 500 mg PO Label Comments: TAKE 1 TABLET BY MOUTH TWICE DAILY WITH MEALS levonorgestrel-ethinyl estrad [Jolessa] 0.15 mg-30 mcg (91) tablets,dose pack,3 month 1 tab PO levofloxacin 500 MG tablet 500 mg PO DAILY Qty: 7 0RF phenazopyridine 200 MG tablet 200 pow PO TID Qty: 6 0RF amoxicillin [amoxicillin] 500 mg tablet 500 mg PO TID 10 Days Qty: 30 0RF methylprednisolone 4 mg Tablets,Dose Pack 4 mg PO DIRECTED Qty: 21 0RF lnifzyrxcnedjvu-jdgqweivi-WH [Bromfed DM] 2-30-10 mg/5 mL Syrup 5 ml PO Q6H PRN (Reason: Cough) Qty: 240 0RF fluconazole [Diflucan] 150 mg tablet 150 mg PO ONCE Qty: 1 2RF methocarbamol [Methocarbamol] 750 mg tablet 750 mg PO Q6 PRN (Reason: Muscle Spasm) Qty: 30 0RF ondansetron [ondansetron] 4 mg tablet,disintegrating 4 mg PO TIDP PRN (Reason: Nausea) Qty: 10 0RF cyclobenzaprine 10 MG tablet 10 mg PO BIDP PRN (Reason: Muscle Spasm) Qty: 20 0RF methylprednisolone 4 MG tablets,dose pack 4 mg PO DIRECTED 6 Days Qty: 21 0RF Referrals Follow up/Referrals: Sharmin Awad APRN [Primary Care Provider] - See instructions Clinical Impressions Clinical Impression: Abscess of pelvis, Hemoperitoneum Instructions Patient Instructions: DI for Acute Abdominal Pain Discharge ED Provider: Arron Yarbrough General Adult HPI General Chief complaint: Abdominal Pain Stated complaint: Post op hysterectomy 03/16 lighted, weak Time Seen by Provider: 03/26/22 14:50 Mode of Arrival: Wheelchair Source of Information: Patient Limitations: No Limitations Description of Symptoms (Recalled from ER Triage Doc. by RN): Pt c/o increased abd pain that began approx 11 am this morning. Pt reports woke up feeling fine this morning. Pt reports had a vaginal hysterectomy 03/16/[address] [facility] by Dr. Stevenson. Pt reports last BM was this morning x2. Pt states has had trouble getting started urinating x2 days. History of Present Illness HPI narrative: Patient is a 35-year-old female with past medical history of recent cholecystectomy on 03-16-2022 who presents to the emergency department for evaluation of suprapubic and pelvic pain. Onset was acute, occurring this morning. Patient reportedly had severe pain in the postoperative course which was resolving. Over the last 48 hours patient has had clear discharge, worsening pelvic pain that is rising superiorly towards her epigastrium. Minimal p.o. intake. Decreased urine output. Current pain is severe, pelvic, radiating to the back. No other acute complaints at this time. Related Data Home Medications Medication Instructions Recorded Confirmed levonorgestrel 0.15 mg-ethinyl 1 tab PO 05/03/21 05/05/21 estradiol 30 mcg tablets,3 mos pack(91) (Castro) naproxen 500 mg tablet 500 mg PO 05/03/21 05/05/21 Previous Rx's Medication Instructions Recorded cyclobenzaprine 10 mg tablet 10 mg PO BIDP PRN Muscle Spasm #20 10/01/21 tabs methylprednisolone 4 mg tablets in 4 mg PO DIRECTED 6 days #21 10/01/21 a dose pack packets levofloxacin 500 mg tablet 500 mg PO DAILY #7 tabs 10/19/21 phenazopyridine 200 mg tablet 200 pow PO TID #6 tabs 10/19/21 amoxicillin 500 mg tablet 500 mg PO TID 10 days #30 tabs 01/16/22 bnllwgufzexelba-zyrloukzckmhlqm-QX 5 ml PO Q6H PRN Cough #240 mL 01/16/22 2 mg-30 mg-10 mg/5 mL oral syrup (Bromfed DM) fluconazole 150 mg tablet 150 mg PO ONCE #1 tab 01/16/22 (Diflucan) methylprednisolone 4 mg tablets in 4 mg PO DIRECTED #21 tabs 01/16/22 a dose pack methocarbamol 750 mg tablet 750 mg PO Q6 PRN Muscle Spasm #30 02/14/22 tabs ondansetron 4 mg disintegrating 4 mg PO TIDP PRN Nausea #10 tabs 02/14/22 tablet Allergies Allergy/AdvReac Type Severity Reaction Status Date /
[2022-03-26 15:28] LABS: Basophils % 0.2 % (0.1-2.0); Eosinophils # 0.1 K/mm3 (0.0-0.4); Eosinophils % 0.7 % (0.1-12.0); Hematocrit 35.4 % (37.0-47.0); Hemoglobin 11.6 g/dL (12.2-16.2); Lymphocytes # 0.5 K/mm3 (0.7-4.5); Lymphocytes % 6.7 % (10-50); Mean Corpuscular HGB Conc 32.9 g/dL (31.8-35.4); Mean Corpuscular Hemoglobin 30.6 pg (27.0-31.2); Mean Corpuscular Volume 93.1 fl (81-99); Mean Platelet Volume 8.4 fl (7.4-10.4); Monocytes # 0.3 K/mm3 (0.1-1.0); Monocytes % 3.6 % (1.7-9.3); Neutrophils # 6.3 K/mm3 (1.8-7.8); Neutrophils % 88.7 % (37.0-80.0); Platelet Count 311 K/mm3 (142-424); Red Cell Distribution Width 13.9 % (11.5-17.5); White Blood Count 7.1 K/mm3 (4.8-10.8)
[2022-03-26 15:30] LABS: MANUAL DIFFERENTIAL MANUAL DIFFERENTIAL (MANUAL DIFF)
[2022-03-26 15:37] LABS: Chloride 103 mmol/L (98-107); Sodium 138 mmol/L (136-145)
[2022-03-26 15:38] LABS: Potassium 3.8 mmoL/L (3.5-5.1)
[2022-03-26 15:40] LABS: Alanine Aminotransferase 76 U/L (12-78); Albumin Level 4.6 g/dl (3.5-5.0); Albumin/Globulin Ratio 1.6 (1.1-1.8); Alkaline Phosphatase 163 U/L (38-126); Anion Gap 14.8 mEq/L (5-15); Aspartate Amino Transferase 85 U/L (14-36); Blood Urea Nitrogen 13 mg/dl (7-17); Calcium 9.9 mg/dl (8.4-10.2); Carbon Dioxide 24 mmol/L (22.0-30.0); Creatinine Clearance Estimated 118 mL/min (50-200); Estimated Glomerular Filt Rate 84 ml/min (>60); GFR (African American) 102 ML/MIN (>60); Globulin 2.9 g/dL (1.3-3.2); Glucose 115 mg/dl (74-100); Total Protein,Serum 7.5 g/dl (6.3-8.2)
[2022-03-26 15:41] LABS: Lipase 27 U/L (23-300)
[2022-03-26 15:46] LABS: Lactic Acid 1.4 mmol/L (0.7-2.1)
--- NOTE | 2022-03-26 15:50 | ECG_ITS ---
APPROVED REPORT Exam: Resting ECG HR:96 bpm ECG Measurements Heart Rate 96 AXES MD 165 P 71 QRSd 92 QRS 45 QT 351 T -4 QTc 405 Conclusion SINUS RHYTHM INCOMPLETE RIGHT BUNDLE BRANCH BLOCK Poor r wave progression ABNORMAL ECG UNCONFIRMED REPORT Electronically signed by : Fran Cardona MD 03/27/2022 12:54:02
[2022-03-26 15:57] LABS: Lymphocytes % 11 % (10-50); Monocytes % 2 % (2-9); Neutrophils % 87 % (42-76); Platelet Estimate Normal; RBC Morphology Normal; Total Cells Counted 100
--- NOTE | 2022-03-26 16:19 | PC.NURSE ---
contacted lab to check on status of urine specimen, gino states she located it and will get them to run it.
[2022-03-26 16:22] LABS: Microscopic, Urine URINE MICROSCOPIC (MICROSCOPIC)
[2022-03-26 16:25] LABS: Appearance,Urine CLOUDY (Clear); Blood, Urine TRACE-I (Negative); Color,Urine YELLOW (Yellow); Glucose,Urine (UA) Negative (Negative); Ketones,Urine 3+ (Negative); Leukocyte Esterase,Urine 3+ (Negative); Nitrate,Urine Negative (Negative); Protein,Urine 1+ (Negative); Specific Gravity, Urine 1.025 (1.005-1.030)
--- NOTE | 2022-03-26 16:32 | EXP.PHA.CONS ---
Pharmacy Consult Date: 03/26/22 Time: 16:32 Referring provider: DR SALCEDO Reason for Consult:: VANCOMYCIN DOSING CONSULT Allergies Allergy/AdvReac Type Severity Reaction Status Date / Time No Known Allergies Allergy Verified 01/16/22 10:32 Home Medications Medication Instructions Recorded Confirmed Type levonorgestrel 0.15 mg-ethinyl 1 tab PO 05/03/21 05/05/21 History estradiol 30 mcg tablets,3 mos pack(91) (Rydera) naproxen 500 mg tablet 500 mg PO 05/03/21 05/05/21 History cyclobenzaprine 10 mg tablet 10 mg PO BIDP PRN Muscle Spasm #20 10/01/21 Rx tabs methylprednisolone 4 mg tablets in 4 mg PO DIRECTED 6 days #21 10/01/21 Rx a dose pack packets levofloxacin 500 mg tablet 500 mg PO DAILY #7 tabs 10/19/21 Rx phenazopyridine 200 mg tablet 200 pow PO TID #6 tabs 10/19/21 Rx amoxicillin 500 mg tablet 500 mg PO TID 10 days #30 tabs 01/16/22 Rx tbedonzjahnfmcb-ylfnrmljgdennep-VI 5 ml PO Q6H PRN Cough #240 mL 01/16/22 Rx 2 mg-30 mg-10 mg/5 mL oral syrup (Bromfed DM) fluconazole 150 mg tablet 150 mg PO ONCE #1 tab 01/16/22 Rx (Diflucan) methylprednisolone 4 mg tablets in 4 mg PO DIRECTED #21 tabs 01/16/22 Rx a dose pack methocarbamol 750 mg tablet 750 mg PO Q6 PRN Muscle Spasm #30 02/14/22 Rx tabs ondansetron 4 mg disintegrating 4 mg PO TIDP PRN Nausea #10 tabs 02/14/22 Rx tablet New Prescriptions to Start Prescriptions: Height: 1.55 m Weight: 72.575 kg Laboratory Results:: Laboratory Results - last 24 hr 03/26/22 15:19: WBC 7.1, RBC 3.80 L, Hgb 11.6 L, Hct 35.4 L, MCV 93.1, MCH 30.6, MCHC 32.9, RDW 13.9, Plt Count 311, MPV 8.4, Neut % (Auto) 88.7 H, Lymph % (Auto) 6.7 L, [place] % (Auto) 3.6, Eos % (Auto) 0.7, Baso % (Auto) 0.2, Neut # (Auto) 6.3, Lymph # (Auto) 0.5 L, [place] # (Auto) 0.3, Eos # (Auto) 0.1, Baso # (Auto) 0.0, Total Counted 100, Neutrophils % (Manual) 87 H, Lymphocytes % (Manual) 11, Monocytes % (Manual) 2, Platelet Estimate Normal, RBC Morphology Normal 03/26/22 15:19: Sodium 138, Potassium 3.8, Chloride 103, Carbon Dioxide 24, Anion Gap 14.8, BUN 13, Creatinine 0.80, Estimated Creat Clear 118, Estimated GFR 84, Est GFR ( Amer) 102, Glucose 115 H, Calcium 9.9, Total Bilirubin 2.0 H, AST 85 H, ALT 76, Alkaline Phosphatase 163 H, Total Protein 7.5, Albumin 4.6, Globulin 2.9, Albumin/Globulin Ratio 1.6 03/26/22 15:19: Lactate 1.4 03/26/22 15:19: Lipase 27 Assessment and Plan Assessment and plan all Dx Assessment and Plan for all problems:: Pharmacokinetic dosing service Objective: Age: 31 yo Serum creatinine: 0.8 mg/dL Height: 61.0 Inches Weight (kg): 72.575 Assessment: IBW (kg): 47.80 Dosing wt(kg): 72.575 Estimated Creatinine clearance (ml/min): 77.6 CRCL method: Cockcroft and Gault using ibw(default). Drug selected: Vancomycin Vd (liters): 54.4 (factor used: 0.75 L/kg) Carlos (hr-1): 0.069 Half life (hrs): 10.05 CLvanco=?? 3.754 L/hr Recommended dose: 1500 mg Interval: 18 hrs Infusion time (hrs): 2.0 Predicted peak (mcg/mL): 36.2 Predicted trough (mcg/mL): 12.00 Total body weight is being used for vancomycin dosing. Recommendations: Give Vancomycin 1500 mg q 18 hrs with an expected Cpeak of 36.2 mcg/ml and an expected Ctrough of 12.00 mcg/ml AUC 0-24 /VIOLET Data: VIOLET 0.5 mcg/mL:?? AUC/VIOLET:? 1065.5 VIOLET 1.0 mcg/mL:?? AUC/VIOLET:? 532.8 --------- VIOLET 1.5 mcg/mL:?? AUC/VIOLET:? 355.2 VIOLET 2.0 mcg/mL:?? AUC/VIOLET:? 266.4 Thank you for the consult
--- NOTE | 2022-03-26 16:36 | PC.NURSE ---
placed call to [facility] for Dr Conner, they were closed, called [facility] for ekg monitor MD for that service.
--- NOTE | 2022-03-26 16:42 | PC.NURSE ---
checked on pt at this time, family at [facility], pt states no needs at this time. Updated pt on POC(waiting bonding supervisor back from her home health cna or bonding supervisor staff), per verbalized understanding
[2022-03-26 16:53] LABS: Bilirubin,Urine 2+ (Negative)
[2022-03-26 17:04] LABS: Bacteria,Urine 2+ /lpf; Trichomonas,Urine 2+ /lpf; WBC,Urine 20-50 #/hpf (0-3)
--- NOTE | 2022-03-26 17:19 | PC.NURSE ---
[facility] called for F/u on ob returning call, they advised they were answering other calls at this time.
--- NOTE | 2022-03-26 17:43 | PC.NURSE ---
Dr Yarbrough spoke to [facility] , they gave him Dr Dalila jose, Dr daugherty speaking with Dr Conner at this time.
--- NOTE | 2022-03-26 17:51 | PC.NURSE ---
calling [facility] for pt transfer per ob MD Dr Conner acceptance
--- NOTE | 2022-03-26 18:00 | PC.NURSE ---
call radiology for a disc of pt images
--- NOTE | 2022-03-26 18:12 | PC.NURSE ---
updated pt on POC, pt accepted to [facility] room 146
--- NOTE | 2022-03-26 18:30 | PC.NURSE ---
Rashid called for transfer
--- NOTE | 2022-03-26 18:30 | PC.NURSE ---
Addendum entered by Tran Montemayor RN 03/26/22 19:04: [id number]- call back and spoke with janneth gilbert to notify her that pt will need flagyl r/t urine results r/t pt has vancomycin infusing at this time, she verbalized understanding. Original Note: report called vladimir stanley rn at [facility] at this time.
--- NOTE | 2022-03-26 19:04 | PC.NURSE ---
report given to [facility]
== END 2022-03-26 19:06 | disposition short-term general hospital (02) ==
PROVIDERS: Emergency Provider Emergency Medicine; PCP Nurse Practitioner Family
DX: R10.2 Pelvic and perineal pain (principal); R10.13 Epigastric pain; R33.9 Retention of urine, unspecified; R79.89 Other specified abnormal findings of blood chemistry; M62.838 Other muscle spasm; L02.91 Cutaneous abscess, unspecified; Z79.1 Long term (current) use of non-steroidal anti-inflammatories (NSAID); Z79.3 Long term (current) use of hormonal contraceptives; Z79.51 Long term (current) use of inhaled steroids; Z79.52 Long term (current) use of systemic steroids; Z79.899 Other long term (current) drug therapy; Z98.890 Other specified postprocedural states
CPT/HCPCS: 74177; 80053; 81001; 83605; 83690; 85007; 85025; 87040; 87086; 87088; 87186; 93005; 96361; 96374; 96375; 99285; J2405; J2543; Q9967

== ENCOUNTER 2022-09-09 18:14 | Emergency (ER) | payer MEDICAID, SELFPAY ==
[2022-09-09] VITALS (12 sets, daily range): BP systolic 92–131; BP diastolic 46–82; PULSE 53–85; RESP 17–24; TEMP 36.6; O2SAT 98–100; BMI 20.7
[2022-09-09 18:25] LABS: Coronavirus 19, PCR Not Detected (NotDetected); Influenza A, PCR Not Detected (NotDetected); Influenza B, PCR Not Detected (NotDetected)
[2022-09-09 18:32] LABS: Basophils % 0.3 % (0.1-2.0); Eosinophils # 0.2 K/mm3 (0.0-0.4); Eosinophils % 1.7 % (0.1-12.0); Hematocrit 46.5 % (37.0-47.0); Hemoglobin 15.2 g/dL (12.2-16.2); Lymphocytes # 2.5 K/mm3 (0.7-4.5); Lymphocytes % 20.1 % (10-50); Mean Corpuscular HGB Conc 32.7 g/dL (31.8-35.4); Mean Corpuscular Hemoglobin 29.3 pg (27.0-31.2); Mean Corpuscular Volume 89.4 fl (81-99); Mean Platelet Volume 8.8 fl (7.4-10.4); Monocytes # 0.4 K/mm3 (0.1-1.0); Monocytes % 3.3 % (1.7-9.3); Neutrophils # 9.5 K/mm3 (1.8-7.8); Neutrophils % 74.7 % (37.0-80.0); Platelet Count 260 K/mm3 (142-424); Red Cell Distribution Width 13.2 % (11.5-17.5); White Blood Count 12.7 K/mm3 (4.8-10.8)
[2022-09-09 18:35] LABS: Alanine Aminotransferase 61 U/L (12-78); Albumin Level 5.2 g/dl (3.5-5.0); Albumin/Globulin Ratio 1.7 (1.1-1.8); Alkaline Phosphatase 106 U/L (38-126); Amylase 92 U/L (30-110); Anion Gap 23.3 mEq/L (5-15); Aspartate Amino Transferase 57 U/L (14-36); Bilirubin,Total 0.9 mg/dl (0.2-1.3); Blood Urea Nitrogen 9 mg/dl (7-17); Calcium 9.8 mg/dl (8.4-10.2); Carbon Dioxide 17 mmol/L (22.0-30.0); Chloride 102 mmol/L (98-107); Creatinine Clearance Estimated 102 mL/min (50-200); Estimated Glomerular Filt Rate 84 ml/min (>60); GFR (African American) 101 ML/MIN (>60); Glucose 163 mg/dl (74-100); Lipase 53 U/L (23-300); Potassium 3.3 mmoL/L (3.5-5.1); Sodium 139 mmol/L (136-145); Total Protein,Serum 8.2 g/dl (6.3-8.2)
[2022-09-09 18:40] LABS: Lactic Acid 6.2 mmol/L (0.7-2.1)
--- NOTE | 2022-09-09 18:42 | CT_ITS ---
PROCEDURE INFORMATION: Exam: CT Abdomen And Pelvis With Contrast Exam date and time: 09/09/2022 6:55 PM Age: 32 years old Clinical indication: Vomiting; Prior surgery; Surgery date: 1-6 months; Surgery type: Partial hysterectomy; Additional info: Sepsis TECHNIQUE: Imaging protocol: Computed tomography of the abdomen and pelvis with contrast. Radiation optimization: All CT scans at this facility use at least one of these dose optimization techniques: automated exposure control; mA and/or kV adjustment per patient size (includes targeted exams where dose is matched to clinical indication); or iterative reconstruction. Contrast material: ISOVUE; Contrast volume: 75 ml; Contrast route: IV; REPORTING DATA: Count of CT and Cardiac NM exams in prior 12 months: This patient has received 2 known CTs and 0 known cardiac nuclear medicine studies in the 12 months prior to the current study. COMPARISON: CT ABDOMEN PELVIS W CON 03/26/2022 3:21 PM FINDINGS: Lungs: The visualized lung bases are clear. Pleural spaces: There are no pleural effusions. Heart: The visualized portions of the heart are unremarkable. There is no evidence of pericardial fluid collections. Liver: There is diffuse decrease in hepatic/liver parenchymal density consistent with fatty infiltration. Gallbladder and bile ducts: There has been a cholecystectomy. Pancreas: The pancreas is normal. Spleen: The spleen demonstrates punctate calcifications, consistent with remote granulomatous organism exposure. Adrenal glands: The adrenal glands are normal. Kidneys and ureters: The kidneys are normal. Stomach and bowel: The stomach is normal. The duodenum is unremarkable. Lack of gastrointestinal contrast limits evaluation of bowel. The colon is decompressed and within range of normal. Unopacified loops of small bowel are within range of normal. Appendix: No evidence of appendicitis. Intraperitoneal space: No evidence of intraperitoneal free air. No evidence of intraperitoneal free air. Vasculature: There are a few benign phleboliths in the pelvis. There is no evidence of an aortic aneurysm. Lymph nodes: There is no evidence of pathologic adenopathy. There is no evidence of pathologic adenopathy. Urinary bladder: The bladder is normal. Reproductive: The uterus is either atrophic or absent. The left ovary is normal. There is a small ovoid fluid collection in the left adnexa measuring approximately 14 x 12 mm just inferior and posterior to the left ovary and may reflect paraovarian cyst. Cannot exclude small abscess. Previously described mildly enhancing fluid collection in the lower pelvis has shifted in appearance. There is now a fluid collection in the slightly more posterior right parasagittal pelvis measuring approximately 4.3 x 5.6 cm which shows mild internal septations. Just lateral to this fluid collection is the right ovary with an ovoid peripherally enhancing hypodensity measuring approximately 18 by 13 mm suggesting corpus luteum. This larger cystic process could reflect complex exophytic ovarian cyst or paraovarian cyst but cannot exclude other entities including cystic neoplasm, endometrioma or abscess. Correlate clinically. Recommend pelvic ultrasound for further evaluation. A few small collections of gas in this region are consistent with adjacent gas-filled loops of bowel. Bones/joints: There is no evidence of acute fracture. Soft tissues: There is a small fat-containing umbilical hernia. No significant soft tissue edema. IMPRESSION: 1. 4.3 x 5.6 cm fluid collection in the posterior right parasagittal pelvis which shows mild internal septations, and is located just
--- NOTE | 2022-09-09 18:46 | PC.NURSE ---
Spoke to Guerita with [facility]
[2022-09-09 18:52] LABS: Procalcitonin < 0.030 ng/mL (0.0-2.0)
[2022-09-09 19:33] LABS: Microscopic, Urine URINE MICROSCOPIC (MICROSCOPIC)
[2022-09-09 19:37] LABS: Appearance,Urine CLEAR (Clear); Bilirubin,Urine Negative (Negative); Blood, Urine Negative (Negative); Color,Urine YELLOW (Yellow); Glucose,Urine (UA) Negative (Negative); Ketones,Urine 1+ (Negative); Leukocyte Esterase,Urine Negative (Negative); Nitrate,Urine Negative (Negative); Protein,Urine Negative (Negative); Urobilinogen,Urine 0.2 EU/dl (0.2)
--- NOTE | 2022-09-09 19:39 | HMH.EDGENADL ---
Discharge Plan Disposition Patient Disposition: Xfer Short-Term Hosp Condition: Fair Prescriptions Prescriptions: No Action norgestimate-ethinyl estradiol [Sprintec (28)] 0.25-35 mg-mcg tablet 1 tab PO DAILY Label Comments: TAKE 1 TABLET BY MOUTH ONCE DAILY tretinoin [Retin-A] 0.025 % cream 1 applic TOPICAL PM Label Comments: APPLY A PEA SIZED AMOUNT TO CLEAN FACE EVERY EVENING DIRECTED Referrals Follow up/Referrals: Jenny Altman APRN [Primary Care Provider] - See instructions Clinical Impressions Clinical Impression: Abscess, intra-abdominal, postoperative, Sepsis Discharge ED Provider: Dimitri Hawley General Adult HPI General Chief complaint: Nausea/Vomiting/Diarrhea Stated complaint: n/v Time Seen by Provider: 09/09/22 18:41 Mode of Arrival: Wheelchair Source of Information: Patient Limitations: No Limitations Description of Symptoms (Recalled from ER Triage Doc. by RN): pt to ed c/o nausea and vomiting. pt states at approx 2pm pt became suddenly nauseous and started vomiting. pt reports hx of partial hys in march and since has had several medical problems. pt denies recent fever/sickness. History of Present Illness HPI narrative: 32yo F presents the emergency department secondary to abdominal pain with nausea and vomiting. Reports she had mild discomfort yesterday and then developed nausea with vomiting this morning. Reports history of partial hysterectomy at [facility] in March. She has had 2 follow-up surgery since that time secondary to abscess. Denies fever. Related Data Home Medications Medication Instructions Recorded Confirmed norgestimate 0.25 mg-ethinyl 1 tab PO DAILY Supplement 09/09/22 09/09/22 estradiol 35 mcg tablet (Sprintec (28)) tretinoin 0.025 % topical cream 1 applic topical PM Skin condition 09/09/22 09/09/22 (Retin-A) Allergies Allergy/AdvReac Type Severity Reaction Status Date / Time No Known Allergies Allergy Verified 05/24/22 10:18 [facility] Disclaimer: The information contained in this section may have been updated after the patient was seen, as this information can be updated by other users. Medical History Abscess of pelvis Acute bronchitis Acute cervical myofascial strain Acute whiplash injury Ankle pain Ankle sprain Atypical chest pain Concussion Concussion COVID-19 virus test result unknown Hemoperitoneum Left against medical advice Patient left before triage assessment Strain of lumbar region Strain of mid-back Strep throat Strep throat Superficial bruising Torticollis UTI (urinary tract infection) Social History Smoking Status: Never smoker alcohol intake: never current occupational status: employed Travel in the last 8 weeks: None household members: family ROS Obtained: Yes Systems reviewed as appropriate & no additional complaints except as documented Physical Exam General General appearance: alert and other (Acutely uncomfortable) Head Head exam: atraumatic Neck Neck exam: Present trachea midline Respiratory Respiratory exam: Present normal lung sounds bilaterally; Absent respiratory distress Cardiovascular Cardiovascular exam: Present regular rate, normal rhythm and normal heart sounds Abdominal Exam Abdominal exam: Present soft, tenderness and normal bowel sounds; Absent distention Extremities Exam Extremities exam: Present normal capillary refill; Absent tenderness Neurological Exam Neurological exam: Present alert and oriented X3 Psychiatric Psychiatric exam: Present normal affect Skin Skin exam: Present warm and dry Medical Decision Making Medical Records Medical records reviewed: Yes I reviewed the patient's medical records. Dirk Inquiry Pt receiving controlled substance: No Vital Signs: 09/09/22 18:15 09/09/22 18:48 Temperature 97.8 F Temperatur
[2022-09-09 19:51] LABS: Bacteria,Urine Trace /lpf; RBC,Urine Occasional #/hpf (0-3); Squamous Epithelial Cell,Urine 20-50 #/hpf (0-5)
--- NOTE | 2022-09-09 19:51 | PC.NURSE ---
Waiting for call back from [facility]
--- NOTE | 2022-09-09 20:19 | PC.NURSE ---
Dr. Mackey speaking with surgeon at [facility]
--- NOTE | 2022-09-09 20:31 | PC.NURSE ---
Attending is aware of systolic pressures in 90's. MAPs have been >65
--- NOTE | 2022-09-09 20:41 | US_ITS ---
PROCEDURE INFORMATION: Exam: US Pelvis, Transvaginal Exam date and time: 09/09/2022 8:57 PM Age: 32 years old Clinical indication: Abnormal findings; Abnormal imaging test; Prior surgery; Surgery date: 6+ months; Surgery type: Hysterectomy; Additional info: Possible abcess TECHNIQUE: Imaging protocol: Real-time transvaginal pelvic ultrasound with image documentation. Transvaginal imaging was used for better evaluation of the endometrium, adnexa, and/or cervix. COMPARISON: TVP US TRANSVAGINAL PREG 07/13/2016 12:55 PM FINDINGS: Uterus: Surgically absent. Right ovary/adnexa: Normal. No mass. Normal ovarian blood flow. Measures 2.7 x 2.9 x 2.1 cm. Left ovary/adnexa: Normal. No mass. Normal ovarian blood flow. Measures 2.3 x 2.6 x 1.7 cm. 1.0 x 0.9 cm left corpus luteal cyst. Intraperitoneal space: No free fluid. IMPRESSION: Left corpus luteal cyst. No abscess seen.
--- NOTE | 2022-09-09 20:46 | PC.NURSE ---
Dr. Mackey spoke with surgeon at [facility]. They advised a transvaginal US. RAD made aware.
--- NOTE | 2022-09-09 21:05 | PC.NURSE ---
Patient to ultrasound
--- NOTE | 2022-09-09 21:23 | PC.NURSE ---
Pt returned from US
--- NOTE | 2022-09-09 21:55 | PC.NURSE ---
Rounded on pt. No needs voiced.
[2022-09-09 22:22] LABS: C-Reactive Protein 1.7 mg/L (0-4)
[2022-09-09 22:24] LABS: Reflex Lactic Add Lactic Reflex
--- NOTE | 2022-09-09 22:25 | PC.NURSE ---
Repeat lactate drawn and sent to lab
[2022-09-09 22:38] LABS: Lactic Acid Follow Up (RFLX 1) 1.1 mmol/L (0.7-2.1)
--- NOTE | 2022-09-09 22:47 | PC.NURSE ---
Reached out to Dr. Stevenson at [facility] Transfer center advised he got called into emergency surgery. Advised he would call us back when he was available.
[2022-09-09 22:54] LABS: Erythrocyte Sedimentation Rate 25 mm/hr (0-20)
--- NOTE | 2022-09-09 23:51 | PC.NURSE ---
Dr. Mackey speaking with Dr. Stevenson at [place]
[2022-09-10 00:03] VITALS: BP 113/82; PULSE 82; RESP 15; TEMP 36.6; O2SAT 99
== END 2022-09-10 00:15 | disposition home or self-care (01) ==
PROVIDERS: Emergency Medicine; Emergency Provider Family Medicine; PCP Nurse Practitioner Family
DX: A41.9 Sepsis, unspecified organism (principal); K65.1 Peritoneal abscess; T81.43XA Infection following a procedure, organ and space surgical site, initial encounter
CPT/HCPCS: 74177; 76830; 80053; 81001; 82150; 83605; 83690; 84145; 85025; 85651; 86140; 87040; 87636; 96361; 96365; 96375; 99291; C9803; J0131; J2405; Q9967; U0003; U0005

== ENCOUNTER → 2023-01-03 16:29 | Outpatient (CLI) | payer MEDICAID, SELFPAY ==
[2023-01-03 14:30] LABS: Microscopic, Urine URINE MICROSCOPIC (MICROSCOPIC)
[2023-01-03 14:46] LABS: Basophils % 0.3 % (0.1-2.0); Eosinophils # 0.1 K/mm3 (0.0-0.4); Eosinophils % 0.7 % (0.1-12.0); Hematocrit 41.6 % (37.0-47.0); Hemoglobin 13.6 g/dL (12.2-16.2); Lymphocytes # 2.1 K/mm3 (0.7-4.5); Mean Corpuscular HGB Conc 32.7 g/dL (31.8-35.4); Mean Corpuscular Hemoglobin 28.9 pg (27.0-31.2); Mean Corpuscular Volume 88.3 fl (81-99); Mean Platelet Volume 8.8 fl (7.4-10.4); Monocytes # 0.2 K/mm3 (0.1-1.0); Monocytes % 3.4 % (1.7-9.3); Neutrophils # 4.6 K/mm3 (1.8-7.8); Neutrophils % 65.7 % (37.0-80.0); Platelet Count 181 K/mm3 (142-424); Red Blood Count 4.71 M/mm3 (4.20-5.40); Red Cell Distribution Width 12.5 % (11.5-17.5)
[2023-01-03 14:49] LABS: Appearance,Urine CLEAR (Clear); Bilirubin,Urine Negative (Negative); Blood, Urine Negative (Negative); Color,Urine YELLOW (Yellow); Glucose,Urine (UA) Negative (Negative); Ketones,Urine Negative (Negative); Leukocyte Esterase,Urine Negative (Negative); Nitrate,Urine Negative (Negative); Protein,Urine Negative (Negative); Urobilinogen,Urine 0.2 EU/dl (0.2)
[2023-01-03 15:32] LABS: Alanine Aminotransferase 21 U/L (12-78); Albumin Level 4.6 g/dl (3.5-5.0); Albumin/Globulin Ratio 1.6 (1.1-1.8); Alkaline Phosphatase 63 U/L (38-126); Amylase 49 U/L (30-110); Aspartate Amino Transferase 24 U/L (14-36); Bilirubin,Total 0.7 mg/dl (0.2-1.3); Blood Urea Nitrogen 9 mg/dl (7-17); Calcium 9.5 mg/dl (8.4-10.2); Carbon Dioxide 25 mmol/L (22.0-30.0); Chloride 103 mmol/L (98-107); Chol/HDL Ratio 2.4 (1-3.5); Cholesterol 143 mg/dl (140-200); Estimated Glomerular Filt Rate 84 ml/min (>60); GFR (African American) 101 ML/MIN (>60); Globulin 2.9 g/dL (1.3-3.2); Glucose 83 mg/dl (74-100); HDL Cholesterol 59 mg/dl (40-60); Lipase 33 U/L (23-300); Sodium 139 mmol/L (136-145); Total Protein,Serum 7.5 g/dl (6.3-8.2); Triglycerides 117 mg/dl (30-150); VLDL Cholesterol 23 mg/dL (0-40)
[2023-01-03 15:43] LABS: Direct LDL Cholesterol 70.84 mg/dL (100-129)
[2023-01-03 15:51] LABS: 25-OH Vitamin D, Total 68.7 ng/mL (30-100); Free T4 (Free Thyroxine) 1.19 ng/dl (0.78-2.19)
[2023-01-03 16:04] LABS: Thyroid Stimulating Hormone 0.57 uIU/mL (0.465-4.68)
[2023-01-03 16:19] LABS: Erythrocyte Sedimentation Rate 13 mm/hr (0-20)
[2023-01-03 16:23] LABS: Vitamin B12 698 pg/mL (239-931)
[2023-01-05 20:32] LABS: Rapid Plasma Reagin Ab Titer Non Reactive titer (NonRea<1:1)
[2023-01-05 22:19] LABS: Neisseria gonorrhoeae, NAA Negative (Negative)
== END ==
PROVIDERS: PCP Nurse Practitioner Family; Visit Provider Nurse Practitioner Family
DX: R10.9 Unspecified abdominal pain (principal); R53.83 Other fatigue; R41.89 Other symptoms and signs involving cognitive functions and awareness; R68.89 Other general symptoms and signs
CPT/HCPCS: 80053; 80061; 81001; 82150; 82306; 82607; 83690; 84439; 84443; 85025; 85651; 86140; 86593; 87086; 87491; 87591

== ENCOUNTER → 2023-01-04 15:24 | Outpatient (CLI) | payer MEDICAID, SELFPAY | PROVIDERS: PCP Nurse Practitioner Family; Visit Provider Nurse Practitioner | DX: R00.2 Palpitations (principal) | CPT/HCPCS: 93270 ==

== ENCOUNTER → 2023-01-10 08:50 | Outpatient (CLI) | payer MEDICAID, SELFPAY ==
--- NOTE | 2023-01-10 | CA_ITS ---
APPROVED REPORT Exam: Exercise Treadmill Technologist: Aaliyah Ballard Ht: 5 ft 2 in Wt: 133 lbs BSA: 1.61 m2 HR: 63 bpm BP: 101/61 mmHg Rhythm: NSR Indications: Chest pain Medical History Medications: Ibuprofen,,,,, ONdansetron,,,,, Sprinter,,,,, Stress Test Details Test: Charles HR Resting HR: 67 bpm Max Heart Rate (APMHR): 189 bpm Max HR Achieved: 164 bpm Target HR (85% APMHR): 161 bpm % of APMHR: 87 Recovery HR: 77 bpm HR response to stress: Normal HR response to stress BP Resting BP: 101.0/61 mmHg Max BP: 130/71 mmHg Recovery BP: 102.0/58.0 mmHg BP response to stress: Normal blood pressure response to stress. ECG Resting ECG: Normal sinus rhythm Stress ECG: No significant ST changes Arrhythmia: None Recovery ECG: No significant ST changes Recovery Arrhythmia: None Clinical Exercise duration: 10:44 min Highest Stage Achieved: Exercise capacity: 12.8 METs Stress ECG Conclusion The patient was able to exercise for a total of 10 minutes, 44 seconds. She achieved a total of 12.8 METS. She has average exercise capacity compared to age and sex matched peers. She has normal HR and BP response to exercise. Symptoms: Chest pressure, leg fatigue, arm fatigue, dyspnea Arrhythmias/Ectopy: None ST-T Changes: No significant ST changes Conclusion: Average exercise capacity. Normal HR and BP response to exercise. Normal EKG repsonse to exercise. No evidence of ischemia on stress ECG. Test Summary REST . . . . . . . Sitting REST 02:55 0.0 0.0 67 . 101/ 61 . . Stage 1 01:00 10.0 1.7 86 . . . . Stage 1 02:00 10.0 1.7 96 . . . . Stage 1 03:00 10.0 1.7 99 . 118/ 78 . . Stage 2 01:00 12.0 2.5 103 . . . . Stage 2 02:00 12.0 2.5 107 . . . . Stage 2 03:00 12.0 2.5 103 . 124/ 72 . . Stage 3 01:00 14.0 3.4 121 . . . . Stage 3 02:00 14.0 3.4 133 . . . . Stage 3 03:00 14.0 3.4 140 . 126/ 76 . . Stage 4 01:00 16.0 4.2 154 . . . . Stage 4 01:44 16.0 4.2 161 . . . Stop exercise at 10:44 RECOVERY 01:00 0.0 0.0 122 . . . . RECOVERY 02:00 0.0 0.0 99 . . . . RECOVERY 03:00 0.0 0.0 95 . 130/ 71 . . RECOVERY 04:00 0.0 0.0 84 . 107/ 71 . . RECOVERY 04:36 0.0 0.0 82 . 102/ 58 . . Electronically signed by : Chela Garcia MD 01/11/2023 21:34:15
== END ==
PROVIDERS: PCP Nurse Practitioner Family; Visit Provider Nurse Practitioner
DX: R06.02 Shortness of breath (principal); R01.1 Cardiac murmur, unspecified; R07.9 Chest pain, unspecified
CPT/HCPCS: 93017

== ENCOUNTER → 2023-01-11 09:38 | Outpatient (CLI) | payer MEDICAID, SELFPAY ==
[2023-01-12 11:30] LABS: C-Reactive Protein 1.4 mg/L (0-4)
== END ==
PROVIDERS: PCP Nurse Practitioner Family; Visit Provider Nurse Practitioner Family
DX: R07.9 Chest pain, unspecified (principal); R94.31 Abnormal electrocardiogram [ECG] [EKG]
CPT/HCPCS: 86140

== ENCOUNTER → 2023-01-20 15:02 | Outpatient (CLI) | payer MEDICAID, SELFPAY ==
--- NOTE | 2023-01-20 15:02 | US_ITS ---
PROCEDURE: US TRANSVAGINAL CLINICAL INDICATION: pelvic pain COMPARISON: US US TRANSVAGINAL from 09/09/2022 FINDINGS: Transabdominal sonographic images of the pelvis were obtained. UTERUS: Surgically absent. VAGINAL CUFF: There is a 1.3 cm cystic structure at the top of the vaginal cuff. No fluid in the cul-de-sac. LEFT OVARY: 2 cmx2 cmx1.4cm with a volume of 3.5ml. There are 2 small follicles within the left ovary the largest of which measures 10 mm. RIGHT OVARY: 4.6 cmx 4.8 cmx4.5 cm with a volume of 52.1ml. Within the right ovary there is a cyst that measures 4.9 cm x 3.2 cm x 4.4 cm Both ovaries are seen. Doppler flow to both ovaries are seen. There is no fluid in the cul-de-sac. IMPRESSION: 1. Uterus is surgically absent. 2. There is a 1.3 cm simple cyst at the vaginal vault. No fluid in the cul-de-sac. 3. The left ovary appears normal with couple of small follicles the largest of which is 1 cm. 4. Right ovary is enlarged with a cyst measuring 4.9 cm. Transvaginal ultrasound on 09/09/2022 did not show a cyst. Dictated by: Faraz Castañeda MD 01/22/2023 10:45 Faraz Castañeda MD in [place] 01/22/2023 10:45
== END ==
PROVIDERS: PCP Nurse Practitioner Family; Visit Provider Obstetrics & Gynecology
DX: R10.2 Pelvic and perineal pain (principal)
CPT/HCPCS: 76830

== ENCOUNTER → 2023-01-21 09:17 | Outpatient (CLI) | payer MEDICAID, SELFPAY ==
--- NOTE | 2023-01-21 09:17 | CT_ITS ---
FINAL REPORT TECHNIQUE: Axial CT images of the abdomen and pelvis were obtained before and after the administration of IV contrast. Oral contrast was administered.This study was performed with techniques to keep radiation doses as low as reasonably achievable (ALARA). Individualized dose reduction techniques using automated exposure control or adjustment of mA and/or kV according to the patient''s size were employed. CLINICAL HISTORY: abd pain since she had her hysterectomy back in Mar 2022. recurrent infection/ sepsis COMPARISON: CT abdomen and pelvis 09/09/2022 FINDINGS: Abdomen: The lung bases are clear. The heart is normal in size. The liver has an unremarkable appearance, without evidence of mass or biliary duct dilatation. The gallbladder has been surgically removed. The spleen is unremarkable. No adrenal masses present. The pancreas has an unremarkable appearance. The kidneys enhance normally. The aorta is normal in caliber. There is no free fluid or adenopathy. No mass or abnormal fluid collection is seen. There is a lobular appearing anterior abdominal wall hernia, containing only fat. Precontrast images demonstrate no evidence of nephrolithiasis. Pelvis: The appendix is unremarkable in appearance. The urinary bladder is unremarkable. The uterus has been surgically removed. No inflammatory process is seen. There are right adnexal cystic masses, the largest of which measures 4.9 cm in diameter, was 3.9 cm in diameter on the prior exam. There is a small less complex cyst adjacent which measures 1.8 cm in diameter. The small left ovarian cyst noted on the prior CT of September 09 has resolved. There is no evidence of bowel obstruction. IMPRESSION: Prior hysterectomy, with small cystic right adnexal masses, slightly larger than noted on the prior CT of September 09 as described. There is a smaller adjacent cyst somewhat less complex in appearance. These may represent ovarian cysts, evolving hematoma, while other cystic masses are not excluded. Would recommend follow-up pelvic ultrasound in 6 to 8 weeks to follow. Lobular appearing anterior abdominal wall hernia, containing only fat. Reviewed, Interpreted and Dictated by Ravi Khan III, MD Transcribed by Jennifer Salmeron Authenticated and [facility]
== END ==
PROVIDERS: PCP Nurse Practitioner Family; Visit Provider Nurse Practitioner Family
DX: R10.9 Unspecified abdominal pain (principal)
CPT/HCPCS: 74178; Q9967

== ENCOUNTER → 2023-01-28 10:53 | Outpatient (CLI) | payer MEDICAID, SELFPAY ==
--- NOTE | 2023-01-28 10:56 | CA_ITS ---
APPROVED REPORT EXAM: Comprehensive 2D, Doppler, and color-flow Echocardiogram Hat Forming Machine Feeder: Vonnie Alvarez CRT Ht: 5 ft 1 in Wt: 133lbs BSA: 1.59 BP: 108/70 mmHg Indications: Abnormal ECG, Chest Pain, Murmur, Shortness of Breath, Palpitations 2D Dimensions LVOT 2.03 cm (M/F) 1.5-2.5 LA Volume 29.10 mL LA Volume Index 17.90 mL/m2 (M/F) 16-34 M-Mode Dimensions RVDd 2.58 cm (0.9-2.6) LA Diam 2.96 cm (1.9-4.0) LVDd 4.87 cm (3.5-5.7) Ao Diam 3.19 cm (2.0-3.7) LVDs 3.25 cm (3.5-5.7) IVSd 0.54 cm (0.6-1.1) PWd 0.71 cm (0.6-1.1) EF (Teich) 61.80% FS 33.30% EDV (Teich) 111.20 mL ESV (Teich) 42.50 mL LV Diastology E Decel Time 150.00 (160-240 msec) E/A Ratio 1.43 MED E' 11.90 (< 7 cm/sec) MED A' 6.20 cm/s E'/MED E' Ratio 6.89 (>14) LAT E' 13.20 (<10 cm/sec) LAT A' 4.40 cm/s E/LAT E' Ratio 6.21 (>14) Aortic Valve AO Peak GR. 4.00 mmHg Mitral Valve MV A Velocity 57.00 (40-130 cm/s) E/A Ratio 1.43 MV Decel. Time 150.00 (160-240 ms) Pulmonary Valve PV Peak Velocity 107.00 (50-150 cm/s) Tricuspid Valve TR P. Velocity 98.00 cm/s RAP Estimate 10.00 mmHg RVSP 13.80 mmHg Left Ventricle The left ventricle is normal size. The left ventricular systolic function is normal. The left ventricular ejection fraction is within the normal range. There is normal left ventricular wall thickness. There is normal LV segmental wall motion. The left ventricular diastolic function is normal. LVEF is 60%. Right Ventricle The right ventricle is mildly dilated. The right ventricular systolic function is normal. Atria The left atrium size is normal. The right atrium size is normal. There is no Doppler evidence of interatrial shunt. Aortic Valve The aortic valve opens well. There is no aortic valvular stenosis. No aortic regurgitation is present. Mitral Valve The mitral valve is normal in structure. No evidence of mitral valve stenosis. Trace mitral regurgitation. Tricuspid Valve The tricuspid valve leaflets are thin and pliable. Trace tricuspid regurgitation. There is insufficient TR jet to estimate RVSP. Pulmonic Valve The pulmonary valve is normal in structure. Trace pulmonary regurgitation. Great Vessels The aortic root is normal in size. The ascending aorta is normal in size. IVC is normal in size and collapses >50% with inspiration. Pericardium There is no pericardial effusion. Other Information Study Quality: Adequate Conclusion Normal biventricular systolic function. Mild RV dilatation. No significant valvular stenosis or regurgitation. Electronically signed by : Chela Garcia MD 01/30/2023 21:47:38
== END ==
PROVIDERS: PCP Nurse Practitioner Family; Visit Provider Nurse Practitioner
DX: R06.02 Shortness of breath (principal); R01.1 Cardiac murmur, unspecified
CPT/HCPCS: 93306

== ENCOUNTER → 2023-01-31 11:06 | Outpatient (CLI) | payer MEDICAID, SELFPAY ==
[2023-01-31 11:46] LABS: Basophils % 0.5 % (0.1-2.0); Eosinophils # 0.2 K/mm3 (0.0-0.4); Eosinophils % 2.6 % (0.1-12.0); Hemoglobin 14.4 g/dL (12.2-16.2); Lymphocytes # 1.9 K/mm3 (0.7-4.5); Lymphocytes % 30.3 % (10-50); Mean Corpuscular HGB Conc 35.2 g/dL (31.8-35.4); Monocytes # 0.3 K/mm3 (0.1-1.0); Monocytes % 4.6 % (1.7-9.3); Neutrophils # 3.9 K/mm3 (1.8-7.8); Neutrophils % 61.9 % (37.0-80.0); Platelet Count 175 K/mm3 (142-424); Red Blood Count 4.51 M/mm3 (4.20-5.40); Red Cell Distribution Width 12.9 % (11.5-17.5); White Blood Count 6.2 K/mm3 (4.8-10.8)
[2023-01-31 13:06] LABS: Alanine Aminotransferase 40 U/L (12-78); Albumin Level 4.5 g/dl (3.5-5.0); Albumin/Globulin Ratio 1.6 (1.1-1.8); Alkaline Phosphatase 61 U/L (38-126); Anion Gap 13.5 mEq/L (5-15); Aspartate Amino Transferase 35 U/L (14-36); Bilirubin,Total 0.5 mg/dl (0.2-1.3); Blood Urea Nitrogen 11 mg/dl (7-17); Calcium 9.4 mg/dl (8.4-10.2); Carbon Dioxide 26 mmol/L (22.0-30.0); Chloride 103 mmol/L (98-107); Estimated Glomerular Filt Rate 98 ml/min (>60); GFR (African American) 118 ML/MIN (>60); Globulin 2.8 g/dL (1.3-3.2); Glucose 76 mg/dl (74-100); Potassium 4.5 mmoL/L (3.5-5.1); Sodium 138 mmol/L (136-145); Total Protein,Serum 7.3 g/dl (6.3-8.2)
[2023-01-31 15:00] LABS: HCG,Quantitative < 2 mIU/ml (0-5.42)
== END ==
PROVIDERS: PCP Nurse Practitioner Family; Visit Provider Obstetrics & Gynecology
DX: N83.201 Unspecified ovarian cyst, right side (principal)
CPT/HCPCS: 36415; 80053; 84702; 85025

== ENCOUNTER 2023-02-03 07:50 | Day surgery (SDC) | payer MEDICAID, SELFPAY ==
[2023-02-01 14:15] VITALS: BMI 24.5
[2023-02-03] VITALS (10 sets, daily range): BP systolic 96–115; BP diastolic 51–63; PULSE 60–74; RESP 14–24; TEMP 36.4–36.9; O2SAT 98–100
--- NOTE | 2023-02-03 08:30 | EXP.ANES.CKL ---
[facility] Disclaimer: The information contained in this section may have been updated after the patient was seen, as this information can be updated by other users. Medical History Abscess of pelvis Acute bronchitis Acute cervical myofascial strain Acute whiplash injury Ankle pain Ankle sprain Atypical chest pain Concussion Concussion COVID-19 virus test result unknown Hemoperitoneum Left against medical advice Patient left before triage assessment Pelvic pain Sepsis 09/2022 Sinusitis Sore throat Strain of lumbar region Strain of mid-back Strep throat Strep throat Superficial bruising Torticollis UTI (urinary tract infection) Vaginal yeast infection Surgical History History of hysteroscopy D&C Hx of colonoscopy 08/26/22 Hx of laparoscopy 04/29/22 S/P partial hysterectomy 03/16/[address] [facility] Family History Father Coronary artery disease Hypertension Social History Smoking Status: Former smoker tobacco type: cigarettes alcohol intake: never substance use type: marijuana current occupational status: unemployed Travel in the last 8 weeks: None household members: family [facility] Anesthesia Checklist Patient Identification Patient Identification: Arm Band and Verbal (Name & ) Structural Data Admitted From: Home Planned Operative Procedure/s: Ovarian cystectomy Consent for Planned Operative Procedure(s) Verified: Yes Verified Documents: Surgical Consent NPO Status Verified Time NPO: 00:00 Chart Verification Results Verified: HCG Additional verifications Anesthesia Reactions: No Hx Blood Transfusions: No Blood Transfusion Reaction: No Airway Assessment Mallampati Score:: Class I C-Spine Mobility Assessed: Yes TMJ Mobility Assessed: Yes Dentition: Good Dentition Neurological Assessment Level of Consciousness: Awake Hx Seizures: No Numbness or tingling in extremities: No Anesthesia Plan Anesthesia Risk discussed: Yes Anesthesia Plan: Verified ASA Class: I Anesthesia Type: General
--- NOTE | 2023-02-03 11:08 | EXP.ANES.I ---
[facility] Anesthesia Record Part I Anesthesia Record I Intake, IV Amount: 1,000 Hydration: Adequate Estimated blood loss (mL): 10 Urine output (mL): 150 Blood Pressure: 103/51 SaO2: 99 Pulse Rate: 74 Airway Patency: Patent Respiratory Rate: 24 Temperature: 97.5 F Patient is:: Drowsy Stable to PACU at:: 11:05
--- NOTE | 2023-02-03 11:22 | EXP.OP.NOTE ---
Date of procedure: 02/03/23 Pre-op Diagnosis:: 1. 5 cm complex right ovarian cyst 2. Pelvic pain Post-op Diagnosis:: 1. 5 cm complex right ovarian cyst 2. Pelvic pain Procedure performed:: 1. Diagnostic laparoscopy 2. Right oophorectomy 3. Right ovarian cystectomy 4. Left salpingectomy Surgeon:: Allie Medina DO Coke Wheeler(s):: Rosette Jacobo DO QUALITY CONTROL CHECKER:: Awa Mcnamara Anesthesia: GETA Estimated blood loss (mL): 10 Operative findings:: Laparoscopic survey revealed a dilated. There was a large approximately 6+ centimeter right complex ovarian cyst noted. Fallopian tube fimbria were noted bilaterally. There were several areas of endometriosis on the bilateral ovaries, throughout the adnexa, and in the cul-de-sac. Small paratubal cyst noted on the right. 1 small subcentimeter left ovarian cyst noted and removed. Operative note:: The patient is a 32-year-old s/p hysterectomy presenting with a diagnosis of complex right adnexal mass measuring about 5cm. The mass had been causing pain for several months. All risks and benefits of laparoscopic ovarian cystectomy had been discussed with the patient in clinic to include oophorectomy. I personally reviewed the risk of possible oophorectomy and salpingectomy. I discussed the risk of bleeding, infection, and injury to the surrounding structures to include but not limited to the bowel, bladder, ureters, and neurovascular bundles. All her questions were answered. The patient was taken to the operating room in stable condition. General anesthesia was administered without difficulty. Abdomen and vagina were then prepped and draped in the usual sterile fashion and placed in the dorsal lithotomy position. An in an out catheter was used to drain the bladder. Attention was then turned to the abdomen where a total of 20mL of 1% lidocaine with epinephrine was used to inject the abdominal incisions. An 11mm incision was made infraumbilically, Vereses needle was placed. saline test and aspiration confirmed correct location. Gas was turned on, and an opening pressure of 8 mmHg was noted. The abdomen was insufflated to a pressure of 15mmHg with CO2 gas. Under direct visualization the trocar was inserted. No evidence of injury to the bowel, omentum or surrounding structures appreciated. Two addition 5mm trocars were placed in the left and right lower quadrants under direct laparoscopic visualization. Examination of the pelvis revealed findings as above. At this time, the bilateral ovaries were elevated out of the pelvis and attention was turned to the right ovarian cyst. Images were obtained. A needle aspirator was introduced and used to puncture the cystic area of the right ovary and suction the fluid off. This fluid was sent for cytology evaluation. There was some additional spillage of the cyst contents from the puncture area. The cyst encompassed the right ovary. The Enseal device was used to seal the IP ligament and transect the right ovary. The ovary was placed in an Endocatch bag removed through the 11mm port. The pelvis was copiously irrigated and suctioned dry. Hemostasis was noted. The left fimbriated end of the fallopian tube was grasped, coagulated, and transected using the Enseal device. This was removed and sent to pathology with the right ovary. At this time, all instruments were removed under visualization. The 10 mm umbilical incision was closed using a figure of eight 0-Vicryl stitch. The 3 laparoscopic incisions were closed using interrupted stitches of 4-0 Monocryl suture. Dermabond was placed after closure. The patient was cleaned. The patient tolerated the laparoscopic ovarian cystectomy well without complications and was taken to the recovery room in stable condition. Condition: stable Disposition: PACU Specimens:: Right ovary, right ovarian cyst and cyst fluid, left fimbriated end of the fallopian tube. Complications:: None
== END 2023-02-03 12:30 | disposition home or self-care (01) ==
PROVIDERS: PCP Nurse Practitioner Family; Visit Provider Obstetrics & Gynecology
PROC: (CPT 58925; principal; 2023-02-03 09:15)
DX: N83.202 Unspecified ovarian cyst, left side (principal); N83.201 Unspecified ovarian cyst, right side; N80.103 Endometriosis of bilateral ovaries, unspecified depth
CPT/HCPCS: 58661; 49322; 96374; J2405

== ENCOUNTER → 2023-02-07 14:40 | Outpatient (CLI) | payer MEDICAID, SELFPAY ==
[2023-02-07 15:03] LABS: Basophils % 0.4 % (0.1-2.0); Eosinophils # 0.3 K/mm3 (0.0-0.4); Eosinophils % 4.7 % (0.1-12.0); Hematocrit 39.1 % (37.0-47.0); Hemoglobin 13.7 g/dL (12.2-16.2); Lymphocytes # 1.6 K/mm3 (0.7-4.5); Lymphocytes % 23.5 % (10-50); Mean Corpuscular Hemoglobin 31.8 pg (27.0-31.2); Mean Corpuscular Volume 90.7 fl (81-99); Mean Platelet Volume 9.5 fl (7.4-10.4); Monocytes # 0.3 K/mm3 (0.1-1.0); Monocytes % 4.7 % (1.7-9.3); Neutrophils # 4.5 K/mm3 (1.8-7.8); Neutrophils % 66.6 % (37.0-80.0); Platelet Count 183 K/mm3 (142-424); Red Cell Distribution Width 12.7 % (11.5-17.5); White Blood Count 6.7 K/mm3 (4.8-10.8)
[2023-02-07 15:37] LABS: Alanine Aminotransferase 69 U/L (12-78); Albumin Level 4.4 g/dl (3.5-5.0); Albumin/Globulin Ratio 1.7 (1.1-1.8); Alkaline Phosphatase 74 U/L (38-126); Anion Gap 14.9 mEq/L (5-15); Aspartate Amino Transferase 40 U/L (14-36); Bilirubin,Total 0.6 mg/dl (0.2-1.3); Blood Urea Nitrogen 8 mg/dl (7-17); Calcium 9.3 mg/dl (8.4-10.2); Carbon Dioxide 26 mmol/L (22.0-30.0); Chloride 103 mmol/L (98-107); Estimated Glomerular Filt Rate 84 ml/min (>60); GFR (African American) 101 ML/MIN (>60); Globulin 2.6 g/dL (1.3-3.2); Glucose 102 mg/dl (74-100); Potassium 3.9 mmoL/L (3.5-5.1); Sodium 140 mmol/L (136-145)
== END ==
PROVIDERS: PCP Nurse Practitioner Family; Visit Provider Obstetrics & Gynecology
DX: R23.2 Flushing (principal)
CPT/HCPCS: 36415; 80053; 85025

== ENCOUNTER 2023-02-11 13:27 | Observation (INO) | payer MEDICAID, SELFPAY ==
[2023-02-11 13:28] VITALS: BP 103/76; PULSE 84; RESP 16; TEMP 37.2; O2SAT 96; BMI 24.5
[2023-02-11 14:38] LABS: Microscopic, Urine URINE MICROSCOPIC (MICROSCOPIC)
--- NOTE | 2023-02-11 14:39 | CT_ITS ---
FINAL REPORT CLINICAL HISTORY: RLQ pain with recent surgery COMPARISON: 01/21/2023 FINDINGS: CT OF THE ABDOMEN AND PELVIS WITH CONTRAST Axial CT images of the abdomen and pelvis were obtained after the administration of IV contrast. Coronal and sagittal reformatted images were also obtained and reviewed. This study was performed with techniques to keep radiation doses as low as reasonably achievable (ALARA). Individualized dose reduction techniques using automated exposure control or adjustment of mA and/or kV according to the patient's size were employed. Abdomen: The lung bases are clear. The heart is normal in size. There is moderate pneumoperitoneum present in the abdomen, consistent with the patient's history of recent surgery. The liver has an unremarkable appearance, without evidence of mass or biliary ductal dilatation. The gallbladder has been surgically removed, consistent with the patient's history prior to January 21 of cholecystectomy. The spleen is unremarkable. No adrenal mass is present. The pancreas has an unremarkable appearance. The kidneys are normal, without evidence of mass or hydronephrosis. The aorta is normal in caliber. There is no free fluid or adenopathy. No mass or abnormal fluid collection is seen. An umbilical hernia containing fat is present. Pelvis: The appendix is not well-visualized. The uterus has been surgically removed. The right adnexal cystic mass seen on the prior CT of January 21 is no longer seen, and may have been surgically resected. There is a small amount of free fluid and free air in the pelvis consistent with postoperative changes. No evidence of bowel obstruction is seen. There is a 6 x 3.7 cm air-fluid collection in the lower portion of the pelvis, that likely represents either a seroma, chronic hematoma, or abscess. The urinary bladder is unremarkable. IMPRESSION: There is a 6 x 3.7 cm air and fluid-filled collection in the lower pelvis, that may represent a seroma, chronic hematoma, or abscess postop. Would suggest a follow-up CT in several days with intravenous contrast and delayed oral contrast to reevaluate if clinically indicated. Pneumoperitoneum is present consistent with the patient's clinical history of recent surgery. Reviewed, Interpreted and Dictated by Ravi Khan III, MD Transcribed by Jennifer Salmeron Authenticated and [facility]
[2023-02-11 14:41] LABS: Appearance,Urine CLEAR (Clear); Bilirubin,Urine Negative (Negative); Blood, Urine Negative (Negative); Color,Urine YELLOW (Yellow); Glucose,Urine (UA) Negative (Negative); Ketones,Urine Negative (Negative); Leukocyte Esterase,Urine Negative (Negative); Nitrate,Urine Negative (Negative); Protein,Urine Negative (Negative); Urobilinogen,Urine 0.2 EU/dl (0.2)
[2023-02-11 14:44] LABS: Chloride 103 mmol/L (98-107); Sodium 140 mmol/L (136-145)
--- NOTE | 2023-02-11 14:45 | HMH.EDGENADL ---
Discharge Plan Disposition Patient Disposition: Admitted Prescriptions Prescriptions: No Action sennosides [Vegetable Laxative] 8.6 mg tablet 8.6 mg PO PRN ondansetron HCl 4 mg Tablet 4 mg PO Q8H PRN (Reason: Nausea) Qty: 20 0RF simethicone 125 mg tablet 125 mg PO DAILY PRN (Reason: abdominal distention) Qty: 60 2RF ibuprofen 800 mg tablet 800 mg PO Q8H Qty: 30 0RF oxycodone 5 mg tablet 5 mg PO BID PRN (Reason: pain) Qty: 12 0RF acetaminophen 500 mg tablet 500 mg PO Q6H PRN (Reason: fever or pain) Qty: 30 3RF Referrals Follow up/Referrals: Jenny Altman APRN [Primary Care Provider] - See instructions Clinical Impressions Clinical Impression: Abdominal pain, right lower quadrant, Pelvic fluid collection Discharge ED Provider: Aleksander Lozoya Adult HPI <Aleksander Lozoya MD - Last Filed: 02/11/23 16:08> General Chief complaint: Abdominal Pain Stated complaint: Post Op 02/03, stomach pain, WALKER Time Seen by Provider: 02/11/23 14:32 Mode of Arrival: Ambulatory Source of Information: Patient Limitations: No Limitations Description of Symptoms (Recalled from ER Triage Doc. by RN): pt to ED with right upper and lower quadant pain x 2 days. pt reports she recently had her right ovary and fallopian tube removed and has been doing more heavy lifting then she should be at home due to her currently having COVID. pt also reports a dull headache for the last 3 days. History of Present Illness HPI narrative: This 32-year-old female with a history of recent abdominal surgery on 02/03 including right oophorectomy and fallopian tube removal presents to the emergency department with concerns of right lower quadrant pain. Patient states she had surgery and was recovering well but then ended up having to do a lot more work at home in the last 24 hours because her became quite sick with COVID. Patient states she is now having right lower quadrant pain but with her multiple recent surgeries and intra-abdominal abscesses, she is concerned that she could potentially be developing infection as well. She presents for evaluation of this. Related Data Home Medications Medication Instructions Recorded Confirmed sennosides 8.6 mg tablet 8.6 mg PO PRN 02/07/23 02/07/23 (Vegetable Laxative) Previous Rx's Medication Instructions Recorded ondansetron HCl 4 mg tablet 4 mg PO Q8H PRN Nausea #20 tabs 09/10/22 acetaminophen 500 mg tablet 500 mg PO Q6H PRN fever or pain 02/03/23 #30 tabs ibuprofen 800 mg tablet 800 mg PO Q8H Pain #30 tabs 02/03/23 oxycodone 5 mg tablet 5 mg PO BID PRN pain #12 tabs 02/03/23 simethicone 125 mg tablet 125 mg PO DAILY PRN abdominal 02/03/23 distention #60 tabs Allergies Allergy/AdvReac Type Severity Reaction Status Date / Time latex Allergy Intermediate Hives Verified 02/07/23 13:58 PFS <Aleksander Lozoya MD - Last Filed: 02/11/23 16:08> [facility] Disclaimer: The information contained in this section may have been updated after the patient was seen, as this information can be updated by other users. Medical History Abscess of pelvis Acute bronchitis Acute cervical myofascial strain Acute whiplash injury Ankle pain Ankle sprain Atypical chest pain Concussion Concussion COVID-19 virus test result unknown Hemoperitoneum Left against medical advice Patient left before triage assessment Pelvic pain Sepsis 09/2022 Sinusitis Sore throat Strain of lumbar region Strain of mid-back Strep throat Strep throat Superficial bruising Torticollis UTI (urinary tract infection) Vaginal yeast infection Surgical History History of hysteroscopy D&C History of ovarian cystectomy 02/03/23, right History of right oophorectomy 02/03/23 History of salpingectomy left. 02/03/23 Hx of colonoscopy 08/26/22 Hx of laparoscopy 04/29/22 S/P partial hysterec
[2023-02-11 14:47] LABS: Alanine Aminotransferase 41 U/L (12-78); Alkaline Phosphatase 71 U/L (38-126); Aspartate Amino Transferase 33 U/L (14-36); Bilirubin,Total 0.3 mg/dl (0.2-1.3); Blood Urea Nitrogen 10 mg/dl (7-17); Calcium 8.9 mg/dl (8.4-10.2); Carbon Dioxide 29 mmol/L (22.0-30.0); Creatinine Clearance Estimated 112 mL/min (50-200); Estimated Glomerular Filt Rate 98 ml/min (>60); GFR (African American) 118 ML/MIN (>60); Glucose 96 mg/dl (74-100); Total Protein,Serum 7.4 g/dl (6.3-8.2)
[2023-02-11 14:50] LABS: Basophils % 0.5 % (0.1-2.0); Eosinophils # 0.4 K/mm3 (0.0-0.4); Eosinophils % 6.1 % (0.1-12.0); Hematocrit 40.8 % (37.0-47.0); Hemoglobin 14.1 g/dL (12.2-16.2); Lymphocytes # 2.1 K/mm3 (0.7-4.5); Mean Corpuscular HGB Conc 34.5 g/dL (31.8-35.4); Mean Corpuscular Hemoglobin 31.6 pg (27.0-31.2); Mean Corpuscular Volume 91.5 fl (81-99); Mean Platelet Volume 8.7 fl (7.4-10.4); Monocytes # 0.3 K/mm3 (0.1-1.0); Neutrophils # 3.9 K/mm3 (1.8-7.8); Neutrophils % 58.3 % (37.0-80.0); Platelet Count 213 K/mm3 (142-424); Red Blood Count 4.46 M/mm3 (4.20-5.40); Red Cell Distribution Width 12.8 % (11.5-17.5); White Blood Count 6.7 K/mm3 (4.8-10.8)
[2023-02-11 14:57] LABS: Bacteria,Urine Trace /lpf
[2023-02-11 15:17] LABS: Lipase 48 U/L (23-300)
[2023-02-11 16:16] LABS: Albumin Level 4.5 g/dl (3.5-5.0); Albumin/Globulin Ratio 1.6 (1.1-1.8); Globulin 2.9 g/dL (1.3-3.2)
--- NOTE | 2023-02-11 16:45 | PC.NURSE ---
paged Dr. Kwon for consult
--- NOTE | 2023-02-11 17:00 | PC.NURSE ---
speaking with Dr. Kwon
[2023-02-11 17:01] VITALS: BP 115/75; PULSE 84; O2SAT 100
--- NOTE | 2023-02-11 17:05 | PC.NURSE ---
called house for admission
--- NOTE | 2023-02-11 17:06 | PC.NURSE ---
nori at bedside for blood culture collection
--- NOTE | 2023-02-11 17:12 | PC.NURSE ---
report called to JERRY Escobar
--- NOTE | 2023-02-11 17:30 | PC.NURSE ---
Report received from She ([employer]).
--- NOTE | 2023-02-11 18:00 | PC.NURSE ---
Pt arrived to unit via w/c from ER. Pt oriented to room and informed of POC. Verbalized understanding. Denies any questions at this time. Allowing pt to eat (d/t stating she's starving ) prior to starting admission process. 1st dose of Zosyn finishing up at this time.
[2023-02-11 18:19] VITALS: BP 101/60; PULSE 84; RESP 16; TEMP 37.2; O2SAT 100
[2023-02-11 18:30] VITALS: TEMP 36.8
--- NOTE | 2023-02-11 19:14 | PC.NURSE ---
Report given to JERRY Casillas.
--- NOTE | 2023-02-11 19:15 | PC.NURSE ---
REPORT RECIEVED FROM RIVERARN
[2023-02-11 20:00] VITALS: BP 92/57; PULSE 53; RESP 17; TEMP 36.9; O2SAT 98
[2023-02-11 23:45] VITALS: BP 106/70; PULSE 50; RESP 17; TEMP 36.5; O2SAT 100
--- NOTE | 2023-02-11 23:45 | PC.NURSE ---
HUNG PT STEWART AND PT WANTED TO GO TO BATHROOM,ASSISTED PT WITH HER IV POLE,WITH RETURNING TO BED,PT REPORTS SHE FEELS WEAK AND A LITTLE NAUSEA,EMESIS BAG PROVIDED.OFFERED A FAN AND COOL WASH CLOTH,THIS PROVIDED.PT DENIED ANY NEED FOR PAIN MEDICINE,TOLERABLE RATE OF 4.
[2023-02-12 03:15] VITALS: BP 94/61; PULSE 61; RESP 17; TEMP 36.4; O2SAT 99
--- NOTE | 2023-02-12 03:30 | PC.NURSE ---
NO ACUTE CHANGES FROM PREVIOUS ASSESSMENT,LUNGS CLEAR,RESP.EVEN AND UNLABORED.NORMAL BOWEL SOUNDS X4 QUADS,VOIDING WITHOUT DIFF..MEDICATED X1 FOR RIGHT SIDE PAIN AND H/A.PHENERGAN GIVEN FOR A LITTLE NAUSEA X1,PT RECIEVING ZOSYN EVERY 6 HOURS.PT HAS BEEN AFIBRILE
--- NOTE | 2023-02-12 07:15 | PC.NURSE ---
report received from kit alcazar RN
--- NOTE | 2023-02-12 07:16 | PC.NURSE ---
REPORT GIVEN TO BRENDARN
[2023-02-12 07:31] LABS: Basophils % 0.7 % (0.1-2.0); Eosinophils # 0.4 K/mm3 (0.0-0.4); Eosinophils % 8.7 % (0.1-12.0); Hematocrit 38.7 % (37.0-47.0); Hemoglobin 13.4 g/dL (12.2-16.2); Lymphocytes % 39.5 % (10-50); Mean Corpuscular HGB Conc 34.6 g/dL (31.8-35.4); Mean Corpuscular Hemoglobin 31.6 pg (27.0-31.2); Mean Corpuscular Volume 91.3 fl (81-99); Mean Platelet Volume 9.1 fl (7.4-10.4); Monocytes # 0.2 K/mm3 (0.1-1.0); Monocytes % 4.8 % (1.7-9.3); Neutrophils # 2.4 K/mm3 (1.8-7.8); Neutrophils % 46.3 % (37.0-80.0); Platelet Count 190 K/mm3 (142-424); Red Blood Count 4.24 M/mm3 (4.20-5.40); Red Cell Distribution Width 12.8 % (11.5-17.5); White Blood Count 5.1 K/mm3 (4.8-10.8)
[2023-02-12 07:33] LABS: Alanine Aminotransferase 39 U/L (12-78); Albumin Level 4.1 g/dl (3.5-5.0); Albumin/Globulin Ratio 1.6 (1.1-1.8); Alkaline Phosphatase 62 U/L (38-126); Anion Gap 13.3 mEq/L (5-15); Aspartate Amino Transferase 42 U/L (14-36); Bilirubin,Total 0.6 mg/dl (0.2-1.3); Blood Urea Nitrogen 8 mg/dl (7-17); Calcium 8.8 mg/dl (8.4-10.2); Carbon Dioxide 26 mmol/L (22.0-30.0); Chloride 104 mmol/L (98-107); Creatinine Clearance Estimated 98 mL/min (50-200); Estimated Glomerular Filt Rate 84 ml/min (>60); GFR (African American) 101 ML/MIN (>60); Globulin 2.5 g/dL (1.3-3.2); Glucose 101 mg/dl (74-100); Potassium 4.3 mmoL/L (3.5-5.1); Sodium 139 mmol/L (136-145); Total Protein,Serum 6.6 g/dl (6.3-8.2)
[2023-02-12 08:10] VITALS: BP 100/62; PULSE 65; RESP 17; TEMP 36.6; O2SAT 100
--- NOTE | 2023-02-12 08:10 | PC.NURSE ---
assessment completed at this time- a/o x4. iv infusing at this time. scuds in place. abdomen non tender and no distension. 3 lap sites. bowel sounds active x4. lungs active x4. no distress while RN performing assessment. poc explained and she v/u
--- NOTE | 2023-02-12 10:55 | HMH.PHAINT1 ---
Pharmacy Intervention Comments: MEDICATION RECONCILIATION COMPLETE USING EXTERNAL PHARMACY FILL HISTORY.
--- NOTE | 2023-02-12 12:24 | EXP.HPDC ---
General Admission date:: 02/11/23 Discharge date: 02/12/23 *Admission Date: 02/11/23 *Chief complaint: RLQ abdominal pain *History of present illness: Mrs Simone Davila is a 32 yo female who presented to the ED on 02/11 with complaint of RLQ abdominal pain. She is 9 days s/p laparosocpic right oophorectomy and left salpingectomy. She has history of hysterectomy March 2022 with subsequent pelvic abscess and sepsis following that surgery. She states she was recovering well but had to increase activity to take care of her family when her became ill with Covid. She is concerned about developing another pelvic abscess. Denies fever/chills. Admits to nausea and headache upon admission. CBC and CMP within normal limits, WBC 6.7. Vital signs stable and aferbrile. CT scan demonstrated a 6 x 3.7 cm air and fluid-filled collection in the lower pelvis, that may represent a seroma, chronic hematoma, or abscess postop. Would suggest a follow-up CT in several days with intravenous contrast and delayed oral contrast to reevaluate if clinically indicated. Pneumoperitoneum is present consistent with the patient's clinical history of recent surgery. She was admitted for possible pelvic abscess with patient's history of pelvic abscess and sepsis s/p hysterectomy. She received first dose of Zosyn in the ED. She admits if she takes pain medication and promethazine she feels okay. Still having a mild headache. [facility] Disclaimer: The information contained in this section may have been updated after the patient was seen, as this information can be updated by other users. Medical History Abscess of pelvis Acute bronchitis Acute cervical myofascial strain Acute whiplash injury Ankle pain Ankle sprain Atypical chest pain Concussion Concussion COVID-19 virus test result unknown Hemoperitoneum Left against medical advice Patient left before triage assessment Pelvic pain Sepsis Sinusitis Sore throat Strain of lumbar region Strain of mid-back Strep throat Strep throat Superficial bruising Torticollis UTI (urinary tract infection) Vaginal yeast infection Surgical History (Updated 02/12/23 @ 13:02 by Rosette Jacobo DO) History of hysteroscopy History of ovarian cystectomy History of right oophorectomy History of salpingectomy Hx of colonoscopy Hx of laparoscopy S/P partial hysterectomy Family History Father Coronary artery disease Hypertension Social History Smoking Status: Never smoker alcohol intake: never substance use type: marijuana current occupational status: unemployed Travel in the last 8 weeks: None household members: family Review of Systems Review of Systems Review of systems:: pertinent systems reviewed and negative unless documented below Constitutional Constitutional: Reports headache(s) and Denies weakness ENT Ears, Nose, Mouth, and Throat: Denies dizziness and Reports headache(s) *Gastrointestinal Gastrointestinal: Reports as per HPI, Reports abdominal pain and Reports nausea *Musculoskeletal Musculoskeletal: Denies numbness and Denies tingling *Neurologic Neurologic: Denies dizziness, Reports headache(s), Denies numbness, Denies tingling and Denies weakness Exam Data for Last 24 hours Vital signs and Labs for Last 24 Hours: Temp Pulse Resp BP Pulse Ox O2 Del Method 97.8 F 65 17 100/62 L 100 Room Air 02/12/23 08:10 02/12/23 08:10 02/12/23 08:10 02/12/23 08:10 02/12/23 08:10 02/12/23 10:27 Laboratory Results - last 24 hr 02/11/23 14:01: Urine Color Yellow, Urine Appearance Clear, Urine pH 6.0, Ur Specific [place] 1.020, Urine Protein Negative, Urine Glucose (UA) Negative, Urine Ketones Negative, Urine Blood Negative, Urine Nitrate Negative, Urine Bilirubin Negative, Urine Urobilinogen 0.2, Ur Leukocyte Fior
== END 2023-02-12 13:07 | disposition home or self-care (01) ==
LOC: ER 17:15 → OB 19:18
PROVIDERS: Admitting Provider Obstetrics & Gynecology; Emergency Provider Emergency Medicine; PCP Nurse Practitioner Family; Visit Provider Obstetrics & Gynecology
DX: R10.31 Right lower quadrant pain (principal); R18.8 Other ascites; Z90.721 Acquired absence of ovaries, unilateral; Z90.79 Acquired absence of other genital organ(s)
CPT/HCPCS: 36415; 74177; 80053; 81001; 83690; 85025; 87040; G0378; J2405; J2543; Q9967

== ENCOUNTER → 2023-02-23 12:01 | Outpatient (CLI) | payer MEDICAID, SELFPAY ==
[2023-02-23 12:51] LABS: Basophils % 0.6 % (0.1-2.0); Eosinophils # 0.2 K/mm3 (0.0-0.4); Eosinophils % 2.8 % (0.1-12.0); Hematocrit 41.9 % (37.0-47.0); Hemoglobin 14.3 g/dL (12.2-16.2); Lymphocytes % 35.1 % (10-50); Mean Corpuscular HGB Conc 34.1 g/dL (31.8-35.4); Mean Corpuscular Hemoglobin 31.5 pg (27.0-31.2); Mean Corpuscular Volume 92.3 fl (81-99); Mean Platelet Volume 8.4 fl (7.4-10.4); Monocytes # 0.3 K/mm3 (0.1-1.0); Monocytes % 5.1 % (1.7-9.3); Neutrophils # 3.2 K/mm3 (1.8-7.8); Neutrophils % 56.4 % (37.0-80.0); Platelet Count 189 K/mm3 (142-424); Red Blood Count 4.54 M/mm3 (4.20-5.40); Red Cell Distribution Width 12.9 % (11.5-17.5); White Blood Count 5.7 K/mm3 (4.8-10.8)
[2023-02-24 13:11] LABS: Immunoglobulin A, Qn 198 mg/dL (87-352); Immunoglobulin G, Qn 944 mg/dL (586-1602); Immunoglobulin M, Qn 91 mg/dL (26-217)
== END ==
LOC: LAB 12:01
PROVIDERS: PCP Nurse Practitioner Family; Visit Provider Allergy & Immunology
DX: B99.9 Unspecified infectious disease (principal)
CPT/HCPCS: 36415; 82784; 85025

== ENCOUNTER → 2023-02-25 08:35 | Outpatient (CLI) | payer MEDICAID, SELFPAY ==
--- NOTE | 2023-02-25 08:37 | CT_ITS ---
FINAL REPORT CLINICAL HISTORY: pelvic pain COMPARISON: 02/11/2023 FINDINGS: Axial images through the pelvis were performed by computed tomography afther the administration of IV and oral contrast. Sagittal and coronal reconstruction images were performed. This study was performed with techniques to keep radiation doses as low as reasonably achievable (ALARA). Individualized dose reduction techniques using automated exposure control or adjustment of mA and/or kV according to the patient's size were employed. There is a fat-containing umbilical hernia. Hernia defect measures 1.5 cm in transverse dimension. The cecum is well opacified and low-lying which likely accounts for previously question abnormality. A complex cystic lesion is seen in the left adnexa measuring 4.5 x 3.8 cm with internal septations likely due to complex, benign cysts which are likely physiologic. There is no free fluid or adenopathy. There are no secondary findings of appendicitis. Bowel is unremarkable. There is no acute osseous abnormality. IMPRESSION: Low-lying cecum, likely accounting for previously question abnormality. Complex cystic lesion in the left adnexa likely due to benign cysts. Recommend follow-up ultrasound in 6-10 weeks. Reviewed, Interpreted and Dictated by Storm Avitia MD Transcribed by Stacey Hauser Authenticated and [facility]
== END ==
PROVIDERS: PCP Nurse Practitioner Family; Visit Provider Obstetrics & Gynecology
DX: R10.2 Pelvic and perineal pain (principal)
CPT/HCPCS: 72193; Q9967

== ENCOUNTER → 2023-03-04 07:48 | Outpatient (CLI) | payer MEDICAID, SELFPAY ==
--- NOTE | 2023-03-04 07:49 | US_ITS ---
FINAL REPORT CLINICAL HISTORY: Low lying cecum/complex cystic lesion on left COMPARISON: None FINDINGS: Sonographic images of the abdomen were obtained. The liver has an unremarkable appearance with normal echogenicity. The gallbladder is absent. There is no evidence of biliary ductal dilatation. The common hepatic duct measures 4 mm, which is within normal limits. The pancreas is partially obscured. The spleen size is normal. The right kidney measures 10.1 cm in length. The left kidney measures 9.6 cm in length. There is normal renal echogenicity. There is no evidence of hydronephrosis. The aorta has an unremarkable appearance. Limited images of the inferior vena cava are unremarkable. IMPRESSION: Unremarkable abdominal ultrasound with no acute abnormality identified. Reviewed, Interpreted and Dictated by Ravi Khan III, MD Transcribed by Tracy Tavares Authenticated and [facility]
== END ==
PROVIDERS: PCP Nurse Practitioner Family; Visit Provider Nurse Practitioner Family
DX: K63.9 Disease of intestine, unspecified (principal); N83.8 Other noninflammatory disorders of ovary, fallopian tube and broad ligament
CPT/HCPCS: 76700

== ENCOUNTER → 2023-03-25 12:50 | Outpatient (CLI) | payer MEDICAID, SELFPAY ==
[2023-03-25 14:37] LABS: Basophils % 0.7 % (0.1-2.0); Eosinophils # 0.1 K/mm3 (0.0-0.4); Eosinophils % 2.4 % (0.1-12.0); Hematocrit 48.9 % (37.0-47.0); Lymphocytes # 1.5 K/mm3 (0.7-4.5); Lymphocytes % 27.2 % (10-50); Mean Corpuscular HGB Conc 32.8 g/dL (31.8-35.4); Mean Corpuscular Volume 94.5 fl (81-99); Mean Platelet Volume 9.7 fl (7.4-10.4); Monocytes # 0.2 K/mm3 (0.1-1.0); Monocytes % 4.4 % (1.7-9.3); Neutrophils # 3.6 K/mm3 (1.8-7.8); Neutrophils % 65.3 % (37.0-80.0); Platelet Count 201 K/mm3 (142-424); Red Blood Count 5.18 M/mm3 (4.20-5.40); Red Cell Distribution Width 12.8 % (11.5-17.5); White Blood Count 5.5 K/mm3 (4.8-10.8)
[2023-03-25 14:56] LABS: Alanine Aminotransferase 110 U/L (12-78); Albumin Level 5.4 g/dl (3.5-5.0); Albumin/Globulin Ratio 1.6 (1.1-1.8); Alkaline Phosphatase 107 U/L (38-126); Anion Gap 12.6 mEq/L (5-15); Aspartate Amino Transferase 55 U/L (14-36); Bilirubin,Total 0.6 mg/dl (0.2-1.3); Blood Urea Nitrogen 10 mg/dl (7-17); Calcium 9.8 mg/dl (8.4-10.2); Carbon Dioxide 29 mmol/L (22.0-30.0); Chloride 101 mmol/L (98-107); Estimated Glomerular Filt Rate 84 ml/min (>60); GFR (African American) 101 ML/MIN (>60); Globulin 3.3 g/dL (1.3-3.2); Glucose 98 mg/dl (74-100); Potassium 4.6 mmoL/L (3.5-5.1); Sodium 138 mmol/L (136-145); Total Protein,Serum 8.7 g/dl (6.3-8.2)
[2023-03-25 15:14] LABS: 25-OH Vitamin D, Total 66.8 ng/mL (30-100); T4 (Thyroxine) 8.6 ug/dl (5.53-11.0)
[2023-03-25 15:28] LABS: Thyroid Stimulating Hormone 0.95 uIU/mL (0.465-4.68)
[2023-03-25 16:44] LABS: C-Reactive Protein 1.6 mg/L (0-4)
[2023-03-25 17:17] LABS: Ferritin 36.6 ng/ml (6.24-137)
[2023-03-25 17:29] LABS: Vitamin B12 875 pg/mL (239-931)
[2023-03-26 10:04] LABS: Thyroid Peroxidase Antibodies 13 IU/mL (0-34); Triiodothyronine (T3) Free 3.7 pg/mL (2.0-4.4)
[2023-03-28 14:10] LABS: Thyroglobulin Level <1.0 IU/mL (0.0-0.9)
[2023-03-29 23:29] LABS: Antinuclear Antibodies (ANA) Negative
== END ==
PROVIDERS: PCP Nurse Practitioner Family; Visit Provider Nurse Practitioner Family
DX: E04.1 Nontoxic single thyroid nodule (principal); B99.9 Unspecified infectious disease; R76.8 Other specified abnormal immunological findings in serum; N80.9 Endometriosis, unspecified; R11.2 Nausea with vomiting, unspecified; R10.11 Right upper quadrant pain
CPT/HCPCS: 80053; 82306; 82607; 82728; 84436; 84443; 84481; 85025; 86038; 86140; 86225; 86235; 86376; 86800; 87522

== ENCOUNTER → 2023-03-30 15:37 | Outpatient (CLI) | payer MEDICAID, SELFPAY ==
[2023-03-30 15:56] LABS: Basophils % 0.7 % (0.1-2.0); Eosinophils # 0.1 K/mm3 (0.0-0.4); Eosinophils % 1.8 % (0.1-12.0); Hematocrit 41.6 % (37.0-47.0); Hemoglobin 13.9 g/dL (12.2-16.2); Lymphocytes # 1.9 K/mm3 (0.7-4.5); Mean Corpuscular HGB Conc 33.5 g/dL (31.8-35.4); Mean Corpuscular Hemoglobin 30.9 pg (27.0-31.2); Mean Corpuscular Volume 92.3 fl (81-99); Mean Platelet Volume 8.9 fl (7.4-10.4); Monocytes # 0.2 K/mm3 (0.1-1.0); Monocytes % 3.6 % (1.7-9.3); Neutrophils # 3.8 K/mm3 (1.8-7.8); Neutrophils % 62.9 % (37.0-80.0); Platelet Count 187 K/mm3 (142-424); Red Blood Count 4.51 M/mm3 (4.20-5.40); Red Cell Distribution Width 12.7 % (11.5-17.5); White Blood Count 6.1 K/mm3 (4.8-10.8)
[2023-04-01 06:13] LABS: HBsAg Screen Negative (Negative); HCV Ab Non Reactive (Non Reactive); Hep A Ab, IGM Negative (Negative); Hep B Core Ab, IgM Negative (Negative)
[2023-04-01 14:11] LABS: Actin (Smooth Muscle) Antibody 4 Units (0-19)
[2023-04-01 15:17] LABS: Liver-Kidney Microsomal Ab <1.0 Units (0.0-20.0)
== END ==
PROVIDERS: PCP Nurse Practitioner Family; Visit Provider Nurse Practitioner Family
DX: R74.8 Abnormal levels of other serum enzymes (principal)
CPT/HCPCS: 36415; 80074; 85025; 86255; 86376

== ENCOUNTER → 2023-03-31 10:17 | Outpatient (CLI) | payer MEDICAID, SELFPAY ==
--- NOTE | 2023-03-31 10:17 | US_ITS ---
FINAL REPORT CLINICAL HISTORY: Thyroid nodule COMPARISON: None FINDINGS: THYROID ULTRASOUND: The right lobe of the thyroid gland measures 4.7 x 1.2 x 1.5 cm in size. The left lobe of the thyroid gland measures 3.9 x 1.2 x 1.2 cm in size. The isthmus of the thyroid gland measures 2.4 mm and thickness. No evidence of focal nodule or mass is identified in the thyroid gland. The overall echogenicity of the thyroid gland appears unremarkable. IMPRESSION: Unremarkable thyroid ultrasound. Reviewed, Interpreted and Dictated by Storm Avitia MD Transcribed by Jennifer Salmeron Authenticated and [facility]
== END ==
PROVIDERS: PCP Nurse Practitioner Family; Visit Provider Nurse Practitioner Family
DX: E04.1 Nontoxic single thyroid nodule (principal)
CPT/HCPCS: 76536

== ENCOUNTER 2023-04-09 07:35 | Emergency (ER) | payer MEDICAID, SELFPAY ==
[2023-04-09] VITALS (9 sets, daily range): BP systolic 96–123; BP diastolic 61–87; PULSE 65–114; RESP 18–20; TEMP 26.1–36.9; O2SAT 97–100; BMI 25.6
--- NOTE | 2023-04-09 07:43 | PC.NURSE ---
Dr. Yarbrough at [facility] for pt eval
--- NOTE | 2023-04-09 07:45 | PC.NURSE ---
20g IV left ac, labs sent.
--- NOTE | 2023-04-09 07:50 | CT_ITS ---
PROCEDURE INFORMATION: Exam: CT Abdomen And Pelvis With Contrast Exam date and time: 04/09/2023 8:19 AM Age: 32 years old Clinical indication: Pain; Other: Pelvic; Additional info: Pelvic pain, previous abscess TECHNIQUE: Imaging protocol: Computed tomography of the abdomen and pelvis with contrast. Radiation optimization: All CT scans at this facility use at least one of these dose optimization techniques: automated exposure control; mA and/or kV adjustment per patient size (includes targeted exams where dose is matched to clinical indication); or iterative reconstruction. Contrast material: ISOVUE; Contrast volume: 75 ml; Contrast route: IV; REPORTING DATA: Count of CT and Cardiac NM exams in prior 12 months: This patient has received 4 known CTs and 0 known cardiac nuclear medicine studies in the 12 months prior to the current study. COMPARISON: CT PELVIS W CON 02/25/2023 8:46 AM FINDINGS: Lungs: Lung bases are clear. Liver: Normal. No mass. Gallbladder and bile ducts: Gallbladder has been removed. Bile ducts are not appreciably dilated. Pancreas: Unremarkable. Main pancreatic duct is not significantly dilated. Spleen: Spleen is mildly enlarged, unchanged. Adrenal glands: Normal. No mass. Kidneys and ureters: Normal. No hydronephrosis. Stomach and bowel: Unremarkable. No obstruction. No mucosal thickening. Appendix: No evidence of appendicitis. Intraperitoneal space: Unremarkable. No free air. No significant fluid collection. Vasculature: Unremarkable. No abdominal aortic aneurysm. Lymph nodes: Unremarkable. No enlarged lymph nodes. Urinary bladder: Unremarkable as visualized. Reproductive: There is redemonstration of 4.5 x 4.3 cm complex left ovarian cyst slightly increased in overall size which demonstrates a mildly thickened wall and some increased intraluminal densities that may represent debris or blood products. This could be further assessed on pelvic ultrasound. In view of its rapid development demonstrated on earlier studies it is presumed functional in nature. Uterus has been removed. Bones/joints: Unremarkable. No acute fracture. Soft tissues: Moderate size fat containing umbilical hernia.Unremarkable. Main pancreatic duct is not significantly dilated. IMPRESSION: 4.5 cm complex left ovarian cyst slightly increased in size from previous exam but presumed functional in nature. Recommend follow-up nonemergent pelvic ultrasound exam for further assessment.
--- NOTE | 2023-04-09 07:52 | HMH.EDGENADL ---
Discharge Plan Disposition Patient Disposition: Home, Self-Care Chief Complaint: Abdominal Pain Prescriptions Prescriptions: No Action Orilissa 150 mg tablet 150 mg PO DAILY Qty: 30 2RF ketoconazole 2 % shampoo 1 applic topical DAILY Patient Comments: APPLY TO WET SCALP, LATHER, LEAVE ON FOR 5 MINUTES, THEN RINSE, USE 2 TIMES PER WEEK albuterol sulfate [Ventolin HFA] 90 mcg/actuation HFA aerosol inhaler inhalation ketoconazole 2 % cream topical Linzess 72 mcg capsule 72 mcg PO DAILY sennosides [Vegetable Laxative] 8.6 mg tablet 8.6 mg PO DAILY tobramycin 0.3 % drops 1 drp ophthalmic (eye) Q4H 5 Days Qty: 5 0RF cefdinir 300 mg capsule 300 mg PO BID 7 Days Qty: 14 0RF ondansetron HCl 4 mg tablet 4 mg PO Q8HP PRN (Reason: Nausea) acetaminophen 500 mg tablet 500 mg PO Q6HP PRN (Reason: fever or pain) simethicone 125 mg tablet 125 mg PO DAILYP PRN (Reason: abdominal distention) ibuprofen 800 mg tablet 800 mg PO Q8H Qty: 30 0RF Referrals Follow up/Referrals: Nilda Phipps APRN [Primary Care Provider] - See instructions Allie Medina DO [Staff Physician] - See instructions Activity Restrictions/Add. Instructions Additional Instructions/Restrictions: At this time it was felt you are safe to be discharged home. If new or worsening symptoms please do not hesitate to return the emergency department. Please schedule follow-up appoint with Dr. Medina as soon as you are able. Clinical Impressions Clinical Impression: Mass of left ovary, Cyst of vagina Instructions Patient Instructions: DI for Acute Abdominal Pain Discharge ED Provider: Arron Yarbrough General Adult HPI General Chief complaint: Abdominal Pain Stated complaint: WALKER, abd pain Time Seen by Provider: 04/09/23 07:41 History of Present Illness HPI narrative: Patient is a 32-year-old female with past medical history of endometriosis, previous hysterectomy with resultant pelvic abscess status post drainage who presents emergency department for evaluation abdominal pain and headache. Headache was acute, 4 days ago, bifrontal, moderate in intensity. Range of motion of neck is preserved. Denies trauma. Over the last 24 hours she has had bilateral lower quadrant abdominal pain, no dysuria, normal stooling without blood. No vomiting. No other acute complaints at this time. Per chart review of [employer] notes here patient has a past medical history of hysterectomy in March 2022 with subsequent pelvic abscess status post drainage. In January 2023 she underwent laparoscopic right-sided oophorectomy and left salpingectomy. In February she was admitted for a 6 x 3.7 cm air and fluid-filled collection in the lower pelvis for which differential is broad however due to inability to rule out infection she was started on Zosyn and underwent empiric treatment for multiple doses and was subsequently discharged home in stable condition. Follow-up CT in February showed complex cystic lesion in the left adnexa likely due to benign cysts. She also has a history of endometriosis for which she was started on Orilissa in February 2023 which improved her abdominal pain and dysparaunia. Related Data Home Medications Medication Instructions Recorded Confirmed sennosides 8.6 mg tablet 8.6 mg PO DAILY Constipation 02/07/23 03/30/23 (Vegetable Laxative) acetaminophen 500 mg tablet 500 mg PO Q6HP PRN fever or pain 02/12/23 03/30/23 ondansetron HCl 4 mg tablet 4 mg PO Q8HP PRN Nausea 02/12/23 03/30/23 simethicone 125 mg tablet 125 mg PO DAILYP PRN abdominal 02/12/23 03/30/23 distention albuterol sulfate 90 mcg/actuation inhalation 03/25/23 03/30/23 aerosol inhaler (Ventolin HFA) ketoconazole 2 % shampoo 1 applic topical DAILY 03/25/23 03/30/23 ketoconazole 2 % topical cream applic topical 03/25/23 03/30/23 linaclotide 72 mcg capsule 72 mcg PO DAILY 03/25/23 03/30/23 (Linzess) Previous Rx's Medication Instructions Recorded ibuprofen 800 mg tablet 800 mg PO Q8H Pain #30 tabs 02/03/23 elagolix 150 mg tablet (Orilissa) 150 mg PO DAILY #30 tabs 02/15/23 cefdinir 300 mg capsule 300 mg PO BID 7 days #14 caps 03/30/23 tobramycin 0.3 % eye drops 1 drp ophthalmic (eye) Q4H 5 days 03/30/23 #5 mL Allergies Allergy/AdvReac Type Severity Reaction Status Date / Time latex Allergy Intermediate Hives Verified 03/30/23 10:14 [facility] Disclaimer: The information contained in this section may have been updated after the patient was seen, as this information can be updated by other users. Medical History Abdominal pain Abscess of pelvis Acute bronchitis Acute cervical myofascial strain Acute whiplash injury Ankle pain Ankle sprain Atypical chest pain Concussion Concussion COVID-19 virus test result unknown Hemoperitoneum Left against medical advice Patient left before triage assessment Pelvic pain Sepsis 09/2022 Sinusitis Sore throat Strain of lumbar region Strain of mid-back Strep throat Strep throat Superficial bruising Torticollis UTI (urinary tract infection) Vaginal yeast infection Surgical History History of hysteroscopy D&C History of ovarian cystectomy 02/03/23, right History of right oophorectomy 02/03/23 History of salpingectomy left. 02/03/23 Hx of colonoscopy 08/26/22 Hx of laparoscopy 04/29/22 S/P partial hysterectomy 03/16/2022 @ [facility] Family History Father Coronary artery disease Hypertension Social History Smoking Status: Never smoker alcohol intake: never substance use type: marijuana current occupational status: unemployed Travel in the last 8 weeks: None household members: family ROS Obtained: Yes Systems reviewed as appropriate & no additional complaints except as documented Physical Exam General General appearance: alert and in no apparent distress Head Head exam: atraumatic and normocephalic Eye Eye exam: Present PERRL and EOMI ENT ENT exam: Present mucous membranes moist Neck Neck exam: Present normal inspection and full ROM Chest Chest inspection: Present normal inspection and symmetric chest wall rise Respiratory Respiratory exam: Present normal lung sounds bilaterally; Absent respiratory distress Cardiovascular Cardiovascular exam: Present normal rhythm and tachycardia Abdominal Exam Abdominal exam: Present soft and tenderness (Mild, bilateral lower quadrants); Absent rebound or rigidity Extremities Exam Extremities exam: Present normal inspection Neurological Exam Neurological exam: Present alert and CN II-XII intact; Absent motor sensory deficit Psychiatric Psychiatric exam: Present normal affect Skin Skin exam: Present warm and dry Medical Decision Making [facility] [place] Inquiry Pt receiving controlled substance: No Vital Signs: 04/09/23 07:36 04/09/23 08:00 04/09/23 08:30 Temperature 98.5 F Temperature Source Oral Pulse Rate 74 86 Pulse Rate [Right] 114 H Respiratory Rate 20 Blood Pressure 108/65 L 114/75 Blood Pressure [Right Arm] 123/87 Blood Pressure Mean [Right Arm] 99 Blood Pressure Source [Right Arm] Automatic Cuff 02 Sat by Pulse Oximetry 100 100 100 Oxygen Delivery Method Room Air Room Air Room Air 04/09/23 09:00 04/09/23 09:30 04/09/23 10:00 Temperature Temperature Source Pulse Rate 69 83 65 Pulse Rate [Right] Respiratory Rate Blood Pressure 96/61 L 100/65 L 118/65 Blood Pressure [Right Arm] Blood Pressure Mean [Right Arm] Blood Pressure Source [Right Arm] 02 Sat by Pulse Oximetry 100 100 100 Oxygen Delivery Method Room Air Room Air Room Air 04/09/23 10:43 04/09/23 11:00 Temperature Temperature Source Pulse Rate 73 93 H Pulse Rate [Right] Respiratory Rate Blood Pressure 112/72 103/69 L Blood Pressure [Right Arm] Blood Pressure Mean [Right Arm] Blood Pressure Source [Right Arm] 02 Sat by Pulse Oximetry 100 100 Oxygen Delivery Method Room Air Room Air Lab Data Lab Results 04/09/23 07:40: Urine Color Yellow, Urine Appearance Clear, Urine pH 6.5, Ur Specific [place] 1.010, Urine Protein Negative, Urine Glucose (UA) Negative, Urine Ketones Negative, Urine Blood Negative, Urine Nitrate Negative, Urine Bilirubin Negative, Urine Urobilinogen 0.2, Ur Leukocyte Esterase Negative, Urine RBC None, Urine WBC Occasional, Ur Squamous Epith Cells 5-10, Urine Bacteria Trace 04/09/23 07:44: WBC 5.2, RBC 4.78, Hgb 14.8, Hct 43.0, MCV 89.9, MCH 31.0, MCHC 34.5, RDW 12.7, Plt Count 171, MPV 8.8, Neut % (Auto) 56.6, Lymph % (Auto) 34.8, Giles % (Auto) 5.1, Eos % (Auto) 2.5, Baso % (Auto) 1.0, Neut # (Auto) 2.9, Lymph # (Auto) 1.8, Giles # (Auto) 0.3, Eos # (Auto) 0.1, Baso # (Auto) 0.1, Sodium 138, Potassium 4.1, Chloride 102, Carbon Dioxide 27, Anion Gap 13.1, BUN 13, Creatinine 0.80, Estimated Creat Clear 102, Estimated GFR 84, Est GFR ( Amer) 101, Glucose 101 H, Calcium 9.1, Total Bilirubin 0.7, AST 34, ALT 27, Alkaline Phosphatase 51, C-Reactive Protein 2.8, Total Protein 7.4, Albumin 4.5, Globulin 2.9, Albumin/Globulin Ratio 1.6, Lipase 50, Serum HCG, Qual Negative 04/09/23 08:10: SARS-CoV-2 (PCR) Not detected, Influenza A Untype (PCR) Not detected, Influenza Type B (PCR) Not detected 04/09/23 07:44 04/09/23 07:44 Orders (Tests/Meds): ED MEDICATIONS Discontinued Medications Generic Name Dose Route Start Last Admin Trade Name Freq PRN Reason Stop Dose Admin Acetaminophen 1,000 mg 04/09/23 07:50 04/09/23 08:02 Acetaminophen 1,000mg/100ml Vial IV 04/09/23 07:51 1,000 mg ONCE ONE Administration Diphenhydramine HCl 50 mg 04/09/23 07:50 04/09/23 08:02 Diphenhydramine 50mg/Ml Vial IV 04/09/23 07:51 50 mg ONCE ONE Administration Lactated Ringer's 1,000 mls @ 999 mls/hr 04/09/23 07:50 04/09/23 08:01 Lactated Ringer's 1000 Ml Bag IV 04/09/23 08:50 999 mls/hr .Q1H1M ONE Administration Iopamidol 75 ml 04/09/23 08:28 04/09/23 08:29 Iopamidol-370 (76%);100ml Bottle IV 04/09/23 08:29 75 ml ONCE ONE Administration Ketorolac Tromethamine 30 mg 04/09/23 07:50 04/09/23 08:03 Ketorolac 30mg/Ml Vial IV 04/09/23 07:51 30 mg ONCE ONE Administration Prochlorperazine Edisylate 5 mg 04/09/23 07:50 04/09/23 08:02 Prochlorperazine 10mg/2ml Vial IV 04/09/23 07:51 5 mg ONCE ONE Administration Sodium Chloride 10 ml 04/09/23 08:28 04/09/23 08:29 Sodium Chloride 0.9% 10ml Syr (Rad Only) IV 04/09/23 08:29 10 ml ONCE ONE Administration ORDERS Category Date Time Status CT abdomen pelvis w con Stat Cat Scan 04/09/23 07:50 Completed US transvaginal Stat Exams 04/09/23 09:37 Completed CBC w/Auto Diff [Complete Blood Count Auto Diff] Stat Lab 04/09/23 07:44 Completed CMP [Comprehensive Metabolic Panel] Stat Lab 04/09/23 07:44 Completed CRP [C-Reactive Protein] Stat Lab 04/09/23 07:44 Completed HCG Qualitative, Serum Stat Lab 04/09/23 07:44 Completed Lipase Stat Lab 04/09/23 07:44 Completed Rapid PCR Covid and Flu A/B Stat Lab 04/09/23 08:10 Completed UA [Urinalysis and Microscopic] Stat Lab 04/09/23 07:40 Completed EKG Request [ECG Request] Stat Y 04/09/23 07:56 Ordered ECG Data Tracing #1: Independently interpreted by me, rate is 90, rhythm is regular, no ST elevation in anatomical contiguous leads, QTc 427. Medical Decision Narrative: In summary patient is a 32-year-old female with past medical history described above who presents emergency department for evaluation of abdominal pain and headache. Patient is hemodynamically stable nontoxic-appearing upon arrival, afebrile. Differential diagnosis includes pelvic abscess, endometriosis with chronic abdominal pain, viral syndrome, among others. With regards to headache onset was not thunderclap and patient has a nonfocal neurologic exam therefore CT imaging was considered but will be deferred at this time. Full range of motion, no meningismus on exam to be concern for meningitis. Empiric treatment of headache will be conducted with IV Tylenol, Toradol, Compazine, diphenhydramine. Patient be given crystalloid bolus. Workup will be conducted with hematologic labs, urinalysis, CT imaging of the abdomen and pelvis with IV contrast. Initial workup reviewed by me, hematologic labs are nonactionable, no elevated inflammatory markers or leukocytosis to suggest infection. negative. Urinalysis interpreted by me and not consistent with infection. Viral swab negative. CT imaging shows a 4.5 cm complex left ovarian cyst slightly increased in size from previous exam. Given that torsion remains on the differential transvaginal ultrasound was obtained which shows normal flow to the left ovary, solid left adnexal mass/complex cyst measuring 3.4 x 3.5 x 4 cm as well as a cyst noted within the vaginal cuff measuring 1.2 x 1.1 x 1.2 cm. Given that I have no concern for pelvic abscess at this time antibiotics are not indicated and patient will follow-up with her dietetic technician on an outpatient basis and was given return precautions. Critical Care Critical Care Time Critical Care Time: No
[2023-04-09 07:56] LABS: Microscopic, Urine URINE MICROSCOPIC (MICROSCOPIC)
[2023-04-09 08:00] LABS: Basophils # 0.1 K/mm3 (0-0.2); Eosinophils # 0.1 K/mm3 (0.0-0.4); Eosinophils % 2.5 % (0.1-12.0); Hemoglobin 14.8 g/dL (12.2-16.2); Lymphocytes # 1.8 K/mm3 (0.7-4.5); Lymphocytes % 34.8 % (10-50); Mean Corpuscular HGB Conc 34.5 g/dL (31.8-35.4); Mean Corpuscular Volume 89.9 fl (81-99); Mean Platelet Volume 8.8 fl (7.4-10.4); Monocytes # 0.3 K/mm3 (0.1-1.0); Monocytes % 5.1 % (1.7-9.3); Neutrophils # 2.9 K/mm3 (1.8-7.8); Neutrophils % 56.6 % (37.0-80.0); Platelet Count 171 K/mm3 (142-424); Red Blood Count 4.78 M/mm3 (4.20-5.40); Red Cell Distribution Width 12.7 % (11.5-17.5); White Blood Count 5.2 K/mm3 (4.8-10.8)
[2023-04-09 08:01] LABS: Chloride 102 mmol/L (98-107); Potassium 4.1 mmoL/L (3.5-5.1); Sodium 138 mmol/L (136-145)
[2023-04-09] MEDS: LACTATED RINGERS 1000ML 1,000 ML 999 ML IV (08:01)
--- NOTE | 2023-04-09 08:01 | ECG_ITS ---
APPROVED REPORT Exam: Resting ECG HR:90 bpm ECG Measurements Heart Rate 90 AXES AL 164 P 81 QRSd 92 QRS 82 QT 379 T 8 QTc 427 Conclusion SINUS RHYTHM WITH SINUS ARRHYTHMIA INCOMPLETE RIGHT BUNDLE BRANCH BLOCK [90+ ms QRS DURATION, TERMINAL R IN V1/V2, 40+ ms S IN I/aVL/V4/V5/V6] NONSPECIFIC T-WAVE ABNORMALITY BORDERLINE ECG UNCONFIRMED REPORT Electronically signed by : Fran Cardona MD 04/10/2023 08:20:10
[2023-04-09] MEDS: ACETAMINOPHEN 1,000MG/100ML VIAL 1000 MG IV (08:02)
[2023-04-09] MEDS: diphenhydrAMINE 50MG/ML VIAL 50 MG IV (08:02)
[2023-04-09] MEDS: PROCHLORPERAZINE 10MG/2ML VIAL 5 MG IV (08:02)
[2023-04-09 08:03] LABS: Alanine Aminotransferase 27 U/L (12-78); Aspartate Amino Transferase 34 U/L (14-36); Blood Urea Nitrogen 13 mg/dl (7-17); Creatinine Clearance Estimated 102 mL/min (50-200); Estimated Glomerular Filt Rate 84 ml/min (>60); GFR (African American) 101 ML/MIN (>60)
[2023-04-09] MEDS: KETOROLAC 30MG/ML VIAL 30 MG IV (08:03)
[2023-04-09 08:04] LABS: Albumin Level 4.5 g/dl (3.5-5.0); Albumin/Globulin Ratio 1.6 (1.1-1.8); Alkaline Phosphatase 51 U/L (38-126); Anion Gap 13.1 mEq/L (5-15); Bilirubin,Total 0.7 mg/dl (0.2-1.3); Calcium 9.1 mg/dl (8.4-10.2); Carbon Dioxide 27 mmol/L (22.0-30.0); Globulin 2.9 g/dL (1.3-3.2); Glucose 101 mg/dl (74-100); Lipase 50 U/L (23-300); Total Protein,Serum 7.4 g/dl (6.3-8.2)
[2023-04-09 08:06] LABS: Appearance,Urine CLEAR (Clear); Bilirubin,Urine Negative (Negative); Blood, Urine Negative (Negative); Color,Urine YELLOW (Yellow); Glucose,Urine (UA) Negative (Negative); Ketones,Urine Negative (Negative); Leukocyte Esterase,Urine Negative (Negative); Nitrate,Urine Negative (Negative); PH,Urine 6.5 (5.0-8.5); Protein,Urine Negative (Negative); Urobilinogen,Urine 0.2 EU/dl (0.2)
[2023-04-09 08:09] LABS: HCG Qualitative, Serum Negative (Negative)
[2023-04-09 08:12] LABS: Bacteria,Urine Trace /lpf; WBC,Urine Occasional #/hpf (0-3)
[2023-04-09 08:14] LABS: Coronavirus 19, PCR Not Detected (NotDetected); Influenza A, PCR Not Detected (NotDetected); Influenza B, PCR Not Detected (NotDetected)
--- NOTE | 2023-04-09 08:14 | PC.NURSE ---
Pt gone to RAD via wheelchair
--- NOTE | 2023-04-09 08:26 | PC.NURSE ---
Pt returned from RAD
[2023-04-09 08:29] LABS: C-Reactive Protein 2.8 mg/L (0-4)
[2023-04-09] MEDS: SODIUM CHLORIDE 0.9% 10ML SYR (RAD ONLY) 10 ML IV (08:29)
[2023-04-09] MEDS: IOPAMIDOL-370 (76%);100ML BOTTLE 75 ML IV (08:29)
--- NOTE | 2023-04-09 09:37 | US_ITS ---
PROCEDURE INFORMATION: Exam: US Duplex Artery and Vein of the Abdominal and/or Reproductive Organs. Complete Ovaries Exam date and time: 04/09/2023 10:10 AM Age: 32 years old Clinical indication: Pelvic pain; Prior surgery; Surgery date: 1-6 months; Surgery type: Uterus removed 2021 -- right ovary removed 01/2022; Additional info: Large cyst, torsion ruleout TECHNIQUE: Imaging protocol: Real-time duplex ultrasound scan of the arterial and venous flow with color Doppler flow and spectral waveform analysis with image documentation. Complete duplex exam focused on the ovaries. Duplex exam was performed to evaluate for torsion and other vascular conditions. Total images: 153 COMPARISON: CT ABDOMEN PELVIS W CON 04/09/2023 8:19 AM FINDINGS: Right ovary/adnexa: Status post right oophorectomy. Left ovary/adnexa: Blood flow is demonstrated to the left ovary. IMPRESSION: No evidence of left ovarian torsion. PROCEDURE INFORMATION: Exam: US Pelvis, Transvaginal Exam date and time: 04/09/2023 10:10 AM Age: 32 years old Clinical indication: Pelvic pain; Prior surgery; Surgery date: 1-6 months; Surgery type: Uterus removed 2021 -- right ovary removed 01/2022; Additional info: Large cyst, torsion ruleout TECHNIQUE: Imaging protocol: Real-time transvaginal pelvic ultrasound with image documentation. Transvaginal imaging was used for better evaluation of the endometrium, adnexa, and/or cervix. COMPARISON: US TRANSVAGINAL 01/20/2023 3:35 PM FINDINGS: Uterus: Status post hysterectomy and right oophorectomy. Right ovary/adnexa: Status post right oophorectomy. Left ovary/adnexa: Left ovary measures 3.93 cm x 4.33 cm x 3.79 cm. Left ovarian volume is 33.77 mL. Left ovary measures 3.9 x 3.8 x 4.3 cm. Blood flow is demonstrated to the left ovary. Solid left adnexal mass/complex cyst present measuring 3.4 x 3.5 x 4.0 cm. Intraperitoneal space: No free fluid. Other findings: A cyst is noted within the vaginal cuff measuring 1.2 x 1.1 x 1.2 cm. IMPRESSION: 1. Status post hysterectomy and right oophorectomy. 2. Blood flow is demonstrated to the left ovary. 3. Solid left adnexal mass/complex cyst present measuring 3.4 x 3.5 x 4.0 cm. 4. A cyst is noted within the vaginal cuff measuring 1.2 x 1.1 x 1.2 cm.
--- NOTE | 2023-04-09 09:37 | PC.NURSE ---
RADIOLOGY NOTIFIED OF TRANSVAGINAL US ORDER, WILL CALL STAFF IN
--- NOTE | 2023-04-09 09:38 | PC.NURSE ---
DR SALCEDO AT BEDSIDE TO UPDATE PT
--- NOTE | 2023-04-09 10:10 | PC.NURSE ---
Pt gone to u/s via wheelchair
--- NOTE | 2023-04-09 10:40 | PC.NURSE ---
Pt returned from u/s
--- NOTE | 2023-04-09 11:28 | PC.NURSE ---
Dr. Yarbrough at BS to update pt on results
--- NOTE | 2023-04-09 11:28 | PC.NURSE ---
PT UPDATED BY DR SALCEDO AT THIS TIME
== END 2023-04-09 11:40 | disposition home or self-care (01) ==
PROVIDERS: Emergency Provider Emergency Medicine; PCP Nurse Practitioner Family
DX: R51.9 Headache, unspecified (principal); R10.9 Unspecified abdominal pain; N83.202 Unspecified ovarian cyst, left side; N89.9 Noninflammatory disorder of vagina, unspecified
CPT/HCPCS: 74177; 76830; 80053; 81001; 83690; 84703; 85025; 86140; 87636; 93005; 96361; 96374; 96375; 99285; J0131; Q9967

== ENCOUNTER 2023-04-25 13:16 | Outpatient (CLI) | payer MEDICAID, SELFPAY ==
--- NOTE | 2023-04-25 13:26 | XR_ITS ---
FINAL REPORT CLINICAL HISTORY: cervicalgia, headaches COMPARISON: None FINDINGS: AP, lateral and odontoid views of the cervical spine were obtained. There is no prior exam for comparison. There is no acute fracture or malalignment. Vertebral body height is preserved. The precervical soft tissues are normal. IMPRESSION: No acute osseous abnormality of the cervical spine. Reviewed, Interpreted and Dictated by Ravi Khan III, MD Transcribed by Jennifer aSlmeron Authenticated and [facility]
--- NOTE | 2023-04-25 13:26 | US_ITS ---
FINAL REPORT CLINICAL HISTORY: Enlarged cervical lymph nodes and parotid gland COMPARISON: None FINDINGS: ULTRASOUND SOFT TISSUES NECK: The parotid and submandibular glands are unremarkable bilaterally. There are several small benign appearing bilateral lymph nodes noted, the largest measuring 1.1 cm in size. No fluid collections or focal masses are identified in the soft tissues of the neck. IMPRESSION: Several small benign-appearing lymph nodes are noted bilaterally as described. Unremarkable parotid and submandibular glands bilaterally. Reviewed, Interpreted and Dictated by Ravi Khan III, MD Transcribed by Jennifer Salmeron Authenticated and [facility]
[2023-04-25 13:34] LABS: Basophils % 0.8 % (0.1-2.0); Eosinophils # 0.3 K/mm3 (0.0-0.4); Eosinophils % 4.9 % (0.1-12.0); Hematocrit 41.3 % (37.0-47.0); Hemoglobin 14.3 g/dL (12.2-16.2); Lymphocytes # 1.8 K/mm3 (0.7-4.5); Lymphocytes % 33.5 % (10-50); Mean Corpuscular HGB Conc 34.5 g/dL (31.8-35.4); Mean Corpuscular Hemoglobin 31.4 pg (27.0-31.2); Mean Platelet Volume 8.7 fl (7.4-10.4); Monocytes # 0.2 K/mm3 (0.1-1.0); Monocytes % 3.9 % (1.7-9.3); Neutrophils % 56.9 % (37.0-80.0); Platelet Count 191 K/mm3 (142-424); Red Blood Count 4.54 M/mm3 (4.20-5.40); Red Cell Distribution Width 12.9 % (11.5-17.5); White Blood Count 5.3 K/mm3 (4.8-10.8)
[2023-04-25 15:08] LABS: Chloride 103 mmol/L (98-107); Potassium 3.8 mmoL/L (3.5-5.1); Sodium 139 mmol/L (136-145)
[2023-04-25 15:11] LABS: Alanine Aminotransferase 50 U/L (12-78); Albumin Level 4.4 g/dl (3.5-5.0); Albumin/Globulin Ratio 1.7 (1.1-1.8); Alkaline Phosphatase 61 U/L (38-126); Anion Gap 11.8 mEq/L (5-15); Aspartate Amino Transferase 39 U/L (14-36); Bilirubin,Total 0.4 mg/dl (0.2-1.3); Blood Urea Nitrogen 9 mg/dl (7-17); Carbon Dioxide 28 mmol/L (22.0-30.0); Estimated Glomerular Filt Rate 84 ml/min (>60); GFR (African American) 101 ML/MIN (>60); Globulin 2.6 g/dL (1.3-3.2)
[2023-04-25 15:12] LABS: Calcium 8.9 mg/dl (8.4-10.2); Glucose 112 mg/dl (74-100)
[2023-04-26 14:16] LABS: EBV Ab VCA, IgG 39.4 U/mL (0.0-17.9); EBV Ab VCA, IgM <36.0 U/mL (0.0-35.9)
== END 2023-04-25 23:59 ==
LOC: RAD 13:16
PROVIDERS: PCP Nurse Practitioner Family; Visit Provider Nurse Practitioner Family
DX: R74.8 Abnormal levels of other serum enzymes (principal); J02.0 Streptococcal pharyngitis; K11.1 Hypertrophy of salivary gland; R59.0 Localized enlarged lymph nodes; M54.2 Cervicalgia; R51.9 Headache, unspecified
CPT/HCPCS: 36415; 72040; 76536; 80053; 85025; 86664; 86665

== ENCOUNTER 2023-05-10 14:02 | Outpatient (CLI) | payer MEDICAID, SELFPAY ==
[2023-05-10 14:51] LABS: Basophils % 0.7 % (0.1-2.0); Eosinophils # 0.1 K/mm3 (0.0-0.4); Hematocrit 39.1 % (37.0-47.0); Hemoglobin 13.9 g/dL (12.2-16.2); Lymphocytes # 1.7 K/mm3 (0.7-4.5); Lymphocytes % 33.4 % (10-50); Mean Corpuscular HGB Conc 35.5 g/dL (31.8-35.4); Mean Corpuscular Hemoglobin 31.5 pg (27.0-31.2); Mean Corpuscular Volume 88.7 fl (81-99); Mean Platelet Volume 8.8 fl (7.4-10.4); Monocytes # 0.3 K/mm3 (0.1-1.0); Monocytes % 5.7 % (1.7-9.3); Neutrophils # 2.9 K/mm3 (1.8-7.8); Neutrophils % 58.2 % (37.0-80.0); Platelet Count 155 K/mm3 (142-424); Red Blood Count 4.41 M/mm3 (4.20-5.40); Red Cell Distribution Width 12.6 % (11.5-17.5)
[2023-05-10 14:58] LABS: Alanine Aminotransferase 30 U/L (12-78); Albumin Level 4.4 g/dl (3.5-5.0); Albumin/Globulin Ratio 1.8 (1.1-1.8); Alkaline Phosphatase 48 U/L (38-126); Aspartate Amino Transferase 25 U/L (14-36); Bilirubin,Total 0.5 mg/dl (0.2-1.3); Blood Urea Nitrogen 10 mg/dl (7-17); Calcium 9.6 mg/dl (8.4-10.2); Carbon Dioxide 27 mmol/L (22.0-30.0); Chloride 104 mmol/L (98-107); Estimated Glomerular Filt Rate 84 ml/min (>60); GFR (African American) 101 ML/MIN (>60); Globulin 2.4 g/dL (1.3-3.2); Glucose 94 mg/dl (74-100); Sodium 137 mmol/L (136-145); Total Protein,Serum 6.8 g/dl (6.3-8.2)
[2023-05-10 15:15] LABS: HCG,Quantitative < 2 mIU/ml (0-5.42)
== END 2023-05-10 23:59 ==
LOC: LAB 14:02
PROVIDERS: PCP Nurse Practitioner Family; Visit Provider Obstetrics & Gynecology
DX: N83.8 Other noninflammatory disorders of ovary, fallopian tube and broad ligament (principal); Z01.812 Encounter for preprocedural laboratory examination
CPT/HCPCS: 36415; 80053; 84702; 85025

== ENCOUNTER 2023-05-17 09:24 | Day surgery (SDC) | payer MEDICAID, SELFPAY ==
[2023-05-16 09:30] VITALS: BMI 26.4
[2023-05-17] VITALS (9 sets, daily range): BP systolic 98–129; BP diastolic 63–90; PULSE 79–111; RESP 12–18; TEMP 36.2–36.9; O2SAT 97–100
[2023-05-17] MEDS: LACTATED RINGERS 1000ML 1,000 ML 100 ML IV (10:00)
[2023-05-17] MEDS: BUPIVACAINE 0.5% 30ML VIAL 150 MG (12:00)
--- NOTE | 2023-05-17 12:57 | P.PNANES_ITS ---
[facility] Anesthesia Record Part I Anesthesia Record I Intake, IV Amount: 300 Hydration: Adequate Estimated blood loss (mL): 10 Urine output (mL): 200 Blood Products used (#): none Blood Pressure: 116/77 SaO2: 98 Pulse Rate: 108 Airway Patency: Patent Respiratory Rate: 14 Temperature: 97.1 F Patient is:: Awake (Talking) and Stable Stable to PACU at:: 12:51
--- NOTE | 2023-05-17 12:57 | EXP.OP.NOTE ---
Date of procedure: 05/17/23 Pre-op Diagnosis:: 1. Pelvic pain 2. Left ovarian cyst 3. Endometriosis Post-op Diagnosis:: 1. Pelvic pain 2. Left ovarian cyst 3. Endometriosis Procedure performed:: 1. Left oophorectomy and ovarian cystectomy Surgeon:: Allie Medina DO Management Trainee(s):: Faraz Castañeda MD WOOD SHINGLE ROOFER:: Other (Saldaris) Anesthesia: GETA Estimated blood loss (mL): 20 Operative findings:: Laparoscopic exam revealed endometriosis in the pelvis. 1 small lesion was attempted to be excised and removed. There appeared to be small clear blebs on the anterior pelvic wall of the bladder. Left ovary appeared slightly enlarged secondary to cyst. The cyst was an incorporated into the ovary and the overall size was probably 3 to 4 cm combined. Operative note:: The patient is a 32-year-old presenting with a diagnosis of complex left adnexal mass measuring about 4cm. The mass had been causing pain for greater than one month. All risks and benefits of laparoscopic oophorectomy and ovarian cystectomy had been discussed with the patient in clinic. All her questions were answered. The patient was taken to the operating room in stable condition. We extensively reviewed the risk of premature menopause given her age at 32. I reviewed the risk of decreased bone mineral density, cardiovascular risk, and increase in overall all-cause mortality. The patient voiced understanding and desire to proceed The patient was taken to the OR where she was placed under general anesthesia without difficulty. Abdomen and vagina were then prepped and draped in the usual sterile fashion and placed in the dorsal lithotomy position. An in an out catheter was used to drain the bladder. Attention was then turned to the abdomen where a total of 20mL of 1% lidocaine with epinephrine was used to inject the abdominal incisions. A 5mm incision was made at [place], an OG tube was placed to [id number] the stomach. Direct laparoscopic entry using a blunt trocar was achieved. Carbon dioxide gas was hooked up, and an opening pressure of 8 mmHg was noted. The abdomen was insufflated to a pressure of 15mmHg with CO2 gas. No evidence of injury to the bowel, omentum or surrounding structures appreciated. Two additional trocars were placed. An 8 mm trocar in the left lower quadrant and a 12 mm trocar in the right lower quadrant. Both were placed under direct laparoscopic visualization. Examination of the pelvis revealed findings as above. At this time, a lesion of endometriosis was noted in the midline below the vesico peritoneum. It was grasped and excised. Removed and sent to pathology for further evaluation Several areas of endometrisis noted, however appear improved from the last diagnostic laparoscopy. Attention was turned to the left ovary. The ovary encompassed the Left Cyst. The ureter was identified and it course was followed deep into the pelvis. It was noted to be distal from the operative field. The Ligasure device was used to seal the IP ligament and transect the Left ovary. The ovary was placed in an Endocatch bag removed through the 11mm port. This port had to be extended at the fascia. A Daryl Harris was used to close the fascia with a 0-vicryl. Pneumoperitoneum remained intact. The pelvis was copiously irrigated and suctioned dry. Hemostasis was noted. At this time, all instruments were removed under visualization. The 3 laparoscopic incisions were closed with 4-0 Monocryl suture. Dermabond was placed after closure. The patient was cleaned. The patient tolerated laparoscopic oophorectomy well without complications and was taken to the recovery room in stable condition. She will be given a dose of Delestrogen in the PACU. Condition: stable Disposition: same day Specimens:: Left ovarian cyst, cyst fluid and cyst wall. Complications:: None
[2023-05-17] MEDS: ESTRADIOL VALERATE 20 MG/ML VIAL IM (13:41)
[2023-05-19 08:59] VITALS: BP 129/90; PULSE 97; RESP 15; TEMP 36.6; O2SAT 100
--- NOTE | 2023-05-19 08:59 | EXP.ANES.II ---
[facility] Anesthesia Record Part II Anesthesia Record Part II Discharge Time: 13:16 Destination: Surgical Day Care (OP Surgery) PACU nurse assessment reviewed?: Yes Patient Condition:: Good Anesthesia Complications:: None Swallowing reflex intact?: Yes Airway Patency: Patent Cyanosis?: No Blood Pressure: 129/90 SaO2: 100 Respiratory Rate: 15 Pulse Rate: 97 Temperature: 97.9 F Mental Status: Alert & Oriented Pain level:: 0 Nausea and/or vomitting:: None Intake, IV Amount: 0 Hydration: Adequate
== END 2023-05-17 13:57 | disposition home or self-care (01) ==
PROVIDERS: PCP Nurse Practitioner Family; Visit Provider Obstetrics & Gynecology
PROC: (CPT 58661; principal; 2023-05-17 11:00)
PROC: (CPT 58925; 2023-05-17 11:00)
DX: N83.02 Follicular cyst of left ovary (principal); N83.12 Corpus luteum cyst of left ovary; R23.3 Spontaneous ecchymoses; N80.399 Endometriosis of the pelvic peritoneum, other specified sites, unspecified depth; R10.2 Pelvic and perineal pain
CPT/HCPCS: 58661; 58662; 96374; J3490; J2405

== ENCOUNTER 2023-05-22 09:01 | Emergency (ER) | payer MEDICAID, SELFPAY ==
[2023-05-22 09:02] VITALS: BP 120/80; PULSE 77; RESP 18; TEMP 36.8; O2SAT 100; BMI 25.6
--- NOTE | 2023-05-22 09:10 | PC.NURSE ---
DR CHARLES AT BEDSIDE
--- NOTE | 2023-05-22 09:15 | CT_ITS ---
PROCEDURE INFORMATION: Exam: CT Abdomen And Pelvis With Contrast Exam date and time: 05/22/2023 10:07 AM Age: 32 years old Clinical indication: Abdominal pain; Generalized; Prior surgery; Surgery date: 3-7 days post-operative; Surgery type: L oophorectomy/mass removal. May 17; Additional info: Recent oophorectomy/mass removal, inc. Pain TECHNIQUE: Imaging protocol: Computed tomography of the abdomen and pelvis with contrast. Radiation optimization: All CT scans at this facility use at least one of these dose optimization techniques: automated exposure control; mA and/or kV adjustment per patient size (includes targeted exams where dose is matched to clinical indication); or iterative reconstruction. Contrast material: ISOVUE; Contrast volume: 75 ml; Contrast route: IV; COMPARISON: CT ABDOMEN PELVIS W CON 04/09/2023 8:19 AM FINDINGS: Liver: Normal. No mass. Gallbladder and bile ducts: Cholecystectomy. Pancreas: Normal. No ductal dilation. Spleen: Normal. No splenomegaly. Adrenal glands: Normal. No mass. Kidneys and ureters: Normal. No hydronephrosis. Stomach and bowel: Mild mural thickening of the descending colon. No bowel obstruction. Appendix: No evidence of appendicitis. Intraperitoneal space: Small to moderate volume pneumoperitoneum, consistent with postsurgical change. Small volume free fluid in the pelvis. Vasculature: Unremarkable. No abdominal aortic aneurysm. Lymph nodes: Unremarkable. No enlarged lymph nodes. Urinary bladder: Unremarkable as visualized. Reproductive: Hysterectomy. Interval changes of left oophorectomy. Bones/joints: Unremarkable. No acute fracture. Soft tissues: Small fat containing umbilical hernia. IMPRESSION: 1. Mild mural thickening of the descending colon may reflect a mild nonspecific colitis. 2. Postsurgical changes of left oophorectomy.
--- NOTE | 2023-05-22 09:18 | HMH.EDGENADL ---
Discharge Plan Disposition Patient Disposition: Home, Self-Care Prescriptions Prescriptions: No Action Orilissa 150 mg tablet 150 mg PO DAILY Qty: 30 2RF polyethylene glycol 3350 [Miralax] 17 gram/dose powder 17 g PO DAILY MDD 17 g Qty: 510 2RF Rx Instructions: Do not take laxative with use of miralax or generic equivalent. Titrate to stool consistency as reviewed. Increase water intake. amitriptyline 10 mg tablet 10 mg PO HS Qty: 30 2RF Orilissa 150 mg tablet 150 mg PO DAILY Qty: 30 11RF ondansetron HCl 4 mg tablet 4 mg PO Q8HP PRN (Reason: Nausea) acetaminophen 500 mg tablet 500 mg PO Q6HP PRN (Reason: fever or pain) ibuprofen 800 mg tablet 800 mg PO Q8H Qty: 30 0RF oxycodone 5 mg tablet 5 mg PO Q8H PRN (Reason: pain) Qty: 12 0RF simethicone 125 mg tablet,chewable 125 mg PO DAILY PRN (Reason: Stomach Upset) Qty: 30 0RF Referrals Follow up/Referrals: Nilda Phipps APRN [Primary Care Provider] - See instructions Activity Restrictions/Add. Instructions Additional Instructions/Restrictions: There is no evidence of any postoperative complications specifically any intra-abdominal abscesses or infections. There is also not a large amount of stool in your colon and I would not recommend that you pursue a enema at home. As discussed I would recommend you escalate MiraLAX and stay on an effective dose for at least several weeks. If you develop any significant diarrhea blood in your stool redness or pus from your wounds high fevers or other concerns please return to the emergency department. Clinical Impressions Clinical Impression: Postoperative abdominal pain Instructions Patient Instructions: DI for Acute Abdominal Pain Discharge ED Provider: Ellen Palacios General Adult HPI General Chief complaint: Abdominal Pain Stated complaint: surgery 05/17 no bm since 05/16 abd/pelvic pain diaz Time Seen by Provider: 05/22/23 09:04 History of Present Illness HPI narrative: Patient is a 32-year-old female presents today with postoperative abdominal pain. She has a history of PCOS and endometriosis and had a left ovarian mass. She went to the operating room at [facility] on Tuesday of this past week. States she had been significantly feeling better as of Tuesday but started worsening on Tuesday with significant pain. With other surgeries she has had the past she had intra-abdominal abscesses and that is her main concern today is an infectious etiology. However she is only had 1 bowel movement in the last 7 days and yesterday evening states she had to try to have a bowel movement and had an excruciating effort. She still feels like she needs to have a bowel movement and she feels that this may be constipation related but that the worsening abdominal pain and tenderness was what were her the most. She has enemas at home she also has been taking vegetable-based laxatives and has been prescribed MiraLAX but has not been taking them. No fevers or chills. Incisional sites from historical standpoint have not been red or having any pus. Related Data Home Medications Medication Instructions Recorded Confirmed acetaminophen 500 mg tablet 500 mg PO Q6HP PRN fever or pain 02/12/23 05/17/23 ondansetron HCl 4 mg tablet 4 mg PO Q8HP PRN Nausea 02/12/23 05/17/23 Previous Rx's Medication Instructions Recorded ibuprofen 800 mg tablet 800 mg PO Q8H Pain #30 tabs 02/03/23 elagolix 150 mg tablet (Orilissa) 150 mg PO DAILY #30 tabs 02/15/23 amitriptyline 10 mg tablet 10 mg PO HS #30 tabs 04/28/23 polyethylene glycol 3350 17 17 g PO DAILY constipation #510 04/28/23 gram/dose oral powder (Miralax) grams elagolix 150 mg tablet (Orilissa) 150 mg PO DAILY #30 tabs 05/17/23 oxycodone 5 mg tablet 5 mg PO Q8H PRN pain #12 tabs 05/17/23 simethicone 125 mg chewable tablet 125 mg PO DAILY PRN Stomach Upset 05/17/23 #30 tabs Allergies Allergy/AdvReac Type Severity Reaction Status Date / Time latex Allergy Intermediate Hives Verified 05/17/23 09:43 [facility] Disclaimer: The information contained in this section may have been updated after the patient was seen, as this information can be updated by other users. Medical History (Updated 05/22/23 @ 10:37 by Ellen Palacios MD) Abdominal pain Abscess of pelvis Atypical chest pain Felix Escobar virus infection Hemoperitoneum Pelvic pain Torticollis Surgical History History of cholecystectomy History of D&C History of hysteroscopy History of ovarian cystectomy History of right oophorectomy History of salpingectomy Hx of colonoscopy Hx of laparoscopy S/P partial hysterectomy Family History Father Coronary artery disease Hypertension Social History Smoking Status: Never smoker alcohol intake: current substance use type: marijuana current occupational status: unemployed Travel in the last 8 weeks: None household members: family ROS Obtained: Yes All systems reviewed & no additional complaints except as documented Physical Exam General General appearance: alert Respiratory Respiratory exam: Present normal lung sounds bilaterally Cardiovascular Cardiovascular exam: Present regular rate Abdominal Exam Abdominal exam: Present other (Incisions look good without any erythema or purulence she is tender with light palpation to bilateral lower quadrants with some mild rebound) Neurological Exam Neurological exam: Present alert Medical Decision Making Dirk Inquiry Pt receiving controlled substance: No Vital Signs: 05/22/23 09:02 05/22/23 09:27 05/22/23 10:00 Temperature 98.2 F Temperature Source Oral Pulse Rate 70 85 Pulse Rate [Right] 77 Respiratory Rate 18 Blood Pressure 124/76 114/73 Blood Pressure [Right Arm] 120/80 Blood Pressure Mean [Right Arm] 93 Blood Pressure Source [Right Arm] Automatic Cuff 02 Sat by Pulse Oximetry 100 100 100 Oxygen Delivery Method Room Air Room Air Room Air Lab Data Lab results reviewed: Yes I reviewed the patient's lab results. Lab Results 05/22/23 09:25: WBC 8.2, RBC 4.54, Hgb 15.0, Hct 41.2, MCV 90.8, MCH 32.9 H, MCHC 36.3 H, RDW 13.0, Plt Count 213, MPV 9.0, Neut % (Auto) 70.8, Lymph % (Auto) 21.7, [place] % (Auto) 3.6, Eos % (Auto) 3.5, Baso % (Auto) 0.4, Neut # (Auto) 5.8, Lymph # (Auto) 1.8, [place] # (Auto) 0.3, Eos # (Auto) 0.3, Baso # (Auto) 0.0, Sodium 138, Potassium 4.3, Chloride 103, Carbon Dioxide 27, Anion Gap 12.3, BUN 12, Creatinine 0.80, Estimated Creat Clear 102, Estimated GFR 84, Est GFR ( Amer) 101, Glucose 113 H, Calcium 9.8, Total Bilirubin 0.6, AST 53 H, ALT 101 H, Alkaline Phosphatase 78, Total Protein 7.7, Albumin 4.6, Globulin 3.1, Albumin/Globulin Ratio 1.5, Serum HCG, Qual Negative 05/22/23 10:30: Urine Color Yellow, Urine Appearance Clear, Urine pH 7.0, Ur Specific [place] 1.010, Urine Protein Negative, Urine Glucose (UA) Negative, Urine Ketones Negative, Urine Blood Negative, Urine Nitrate Negative, Urine Bilirubin Negative, Urine Urobilinogen 0.2, Ur Leukocyte Esterase Negative 05/22/23 09:25 05/22/23 09:25 Orders (Tests/Meds): ED MEDICATIONS Discontinued Medications Generic Name Dose Route Start Last Admin Trade Name Freq PRN Reason Stop Dose Admin Lactated Ringer's 1,000 mls @ 999 mls/hr 05/22/23 09:15 05/22/23 09:29 Lactated Ringer's 1000 Ml Bag IV 05/22/23 10:15 999 mls/hr .Q1H1M ROBERTO Administration Morphine Sulfate 4 mg 05/22/23 09:15 05/22/23 09:30 Morphine 4mg/Ml Syringe IV 05/22/23 09:16 4 mg ONCE ONE Administration Ondansetron HCl 4 mg 05/22/23 09:15 05/22/23 09:30 Ondansetron 4mg/2ml Vial IV 05/22/23 09:16 4 mg ONCE ONE Administration ORDERS Category Date Time Status CT abdomen pelvis w con Stat Cat Scan 05/22/23 09:15 Completed CBC w/Auto Diff [Complete Blood Count Auto Diff] Stat Lab 05/22/23 09:25 Completed CMP [Comprehensive Metabolic Panel] Stat Lab 05/22/23 09:25 Completed HCG Qualitative, Serum Stat Lab 05/22/23 09:25 Completed UA [Urinalysis and Microscopic] Stat Lab 05/22/23 10:30 Results Medical Decision Narrative: 32-year-old female with postoperative abdominal pain recently having an ovarian cyst and ovarian mass removed from historical standpoint. Unclear as to the nature of this mass. She does have significant tenderness which seems to be out of proportion to what would be expected with constipation. Although clinically and from historical standpoint she has only had 1 bowel movement in the last 7 days so symptoms certainly could be secondary to constipation and just also having some postoperative abdominal pain. However she has history of intra-abdominal infections and that her main concern today which is a reasonable concern. Will get a CT scan with IV contrast to further evaluate this. IV fluids pain medicine nausea medicine have been given and will reassess. Specifically she is not interested in trying to just have an enema to see if she has improvement in her symptoms as she states she has this at home but she was more concerned about alternative diagnoses and pathologies associated with this pain. Reassessment 10:38 AM serial exams show significant improvement in patient's symptoms but abdomen is soft at this point. CT scan performed at person interpreted which shows no acute intra-abdominal abscesses or infection. There is some nonspecific mural thickening of the colon but she has no symptoms concerning for colitis. She does have some normal postoperative changes and inflammation around the surgical sites but no definitive postoperative complications. I suspect that the pain that she had earlier with having a bowel movement which is from localized trauma and possibly inflammation of the surrounding region. She does not have a large amount of stool in her colon or her rectum. Therefore I did not recommend that she have an enema in the emergency department or at home. I have recommended that she escalate her MiraLAX at home until she is at an effective dose and stay on that dose for several weeks. Overall she looks very well labs are reassuring as well from an infectious standpoint. She has some nonspecific transaminase elevations which are nonemergent. She has been advised to follow-up with her primary care doctor and her [employer] doctor for further evaluation as needed and to return emerged part with any worsening symptoms. Critical Care Critical Care Time Critical Care Time: No
[2023-05-22 09:27] VITALS: BP 124/76; PULSE 70; O2SAT 100
[2023-05-22] MEDS: LACTATED RINGERS 1000ML 1,000 ML 999 ML IV (09:29)
[2023-05-22] MEDS: ONDANSETRON 4MG/2ML VIAL 4 MG IV (09:30)
[2023-05-22] MEDS: MORPHINE 4MG/ML SYRINGE 4 MG IV (09:30)
[2023-05-22 09:41] LABS: Chloride 103 mmol/L (98-107)
[2023-05-22 09:42] LABS: Potassium 4.3 mmoL/L (3.5-5.1); Sodium 138 mmol/L (136-145)
[2023-05-22 09:44] LABS: Alanine Aminotransferase 101 U/L (12-78); Alkaline Phosphatase 78 U/L (38-126); Anion Gap 12.3 mEq/L (5-15); Aspartate Amino Transferase 53 U/L (14-36); Bilirubin,Total 0.6 mg/dl (0.2-1.3); Blood Urea Nitrogen 12 mg/dl (7-17); Carbon Dioxide 27 mmol/L (22.0-30.0); Creatinine Clearance Estimated 102 mL/min (50-200); Estimated Glomerular Filt Rate 84 ml/min (>60); GFR (African American) 101 ML/MIN (>60); HCG Qualitative, Serum Negative (Negative)
[2023-05-22 09:45] LABS: Albumin Level 4.6 g/dl (3.5-5.0); Albumin/Globulin Ratio 1.5 (1.1-1.8); Calcium 9.8 mg/dl (8.4-10.2); Globulin 3.1 g/dL (1.3-3.2); Glucose 113 mg/dl (74-100); Total Protein,Serum 7.7 g/dl (6.3-8.2)
[2023-05-22 09:47] LABS: Basophils % 0.4 % (0.1-2.0); Eosinophils # 0.3 K/mm3 (0.0-0.4); Eosinophils % 3.5 % (0.1-12.0); Hematocrit 41.2 % (37.0-47.0); Lymphocytes # 1.8 K/mm3 (0.7-4.5); Lymphocytes % 21.7 % (10-50); Mean Corpuscular HGB Conc 36.3 g/dL (31.8-35.4); Mean Corpuscular Hemoglobin 32.9 pg (27.0-31.2); Mean Corpuscular Volume 90.8 fl (81-99); Monocytes # 0.3 K/mm3 (0.1-1.0); Monocytes % 3.6 % (1.7-9.3); Neutrophils # 5.8 K/mm3 (1.8-7.8); Neutrophils % 70.8 % (37.0-80.0); Platelet Count 213 K/mm3 (142-424); Red Blood Count 4.54 M/mm3 (4.20-5.40); White Blood Count 8.2 K/mm3 (4.8-10.8)
[2023-05-22 10:00] VITALS: BP 114/73; PULSE 85; O2SAT 100
--- NOTE | 2023-05-22 10:05 | PC.NURSE ---
Pt gone to RAD via wheelchair
--- NOTE | 2023-05-22 10:17 | PC.NURSE ---
Pt back in room from RAD
[2023-05-22 10:32] LABS: Microscopic, Urine URINE MICROSCOPIC (MICROSCOPIC)
--- NOTE | 2023-05-22 10:33 | PC.NURSE ---
DR CHARLES AT BEDSIDE TO UPDATE PT
[2023-05-22 10:34] LABS: Appearance,Urine CLEAR (Clear); Bilirubin,Urine Negative (Negative); Blood, Urine Negative (Negative); Color,Urine YELLOW (Yellow); Glucose,Urine (UA) Negative (Negative); Ketones,Urine Negative (Negative); Leukocyte Esterase,Urine Negative (Negative); Nitrate,Urine Negative (Negative); Protein,Urine Negative (Negative); Urobilinogen,Urine 0.2 EU/dl (0.2)
[2023-05-22 10:45] VITALS: BP 114/73; PULSE 76; RESP 20; TEMP 36.7; O2SAT 100
[2023-05-22 10:46] LABS: Bacteria,Urine Trace /lpf; WBC,Urine Occasional #/hpf (0-3)
== END 2023-05-22 10:46 | disposition home or self-care (01) ==
PROVIDERS: Emergency Provider Student in an Organized Health Care Education/Training Program; PCP Nurse Practitioner Family
DX: R10.9 Unspecified abdominal pain (principal); R10.2 Pelvic and perineal pain; R51.9 Headache, unspecified; G89.18 Other acute postprocedural pain; N80.C9 Endometriosis of other site of abdomen
CPT/HCPCS: 74177; 80053; 81001; 84703; 85025; 96361; 96374; 96375; 99285; J2405

== ENCOUNTER 2023-05-26 09:34 | Outpatient (CLI) | payer MEDICAID, SELFPAY ==
--- NOTE | 2023-05-26 12:33 | XR_ITS ---
FINAL REPORT CLINICAL HISTORY: Constipation no bowel movement since 2-5 COMPARISON: None FINDINGS: A PA view of the chest was obtained. The cardiac and mediastinal silhouettes are within normal limits. The lungs are clear. There is a small amount of pneumoperitoneum under the right hemidiaphragm. Upright and supine views of the abdomen reveal a normal bowel gas pattern. There is a small amount of presumed pneumoperitoneum under the right hemidiaphragm. There is no evidence of small bowel obstruction. There are no pathologic calcifications. No acute osseous abnormalities identified. Postoperative changes are noted in the right upper quadrant. IMPRESSION: Small amount of presumed pneumoperitoneum under the right hemidiaphragm. These results were called to [facility] 05/26/2023 at 2:45 PM. Reviewed, Interpreted and Dictated by Ravi Khan III, MD Transcribed by Jennifer Salmeron Authenticated and [facility]
== END 2023-05-26 23:59 ==
LOC: RAD 09:35
PROVIDERS: PCP Nurse Practitioner Family; Visit Provider Nurse Practitioner Family
DX: G89.18 Other acute postprocedural pain (principal); R10.9 Unspecified abdominal pain
CPT/HCPCS: 74021

== ENCOUNTER 2023-05-26 15:52 | Emergency (ER) | payer MEDICAID, SELFPAY ==
[2023-05-26 16:14] VITALS: BP 131/73; PULSE 100; RESP 18; O2SAT 98; BMI 25.6
--- NOTE | 2023-05-26 16:14 | CT_ITS ---
PROCEDURE INFORMATION: Exam: CT Abdomen And Pelvis With Contrast Exam date and time: 05/26/2023 4:24 PM Age: 32 years old Clinical indication: Abdominal tenderness; Abdominal pain; Additional info: History of abscesses in pelvis, recent surgery. TECHNIQUE: Imaging protocol: Computed tomography of the abdomen and pelvis with contrast. Radiation optimization: All CT scans at this facility use at least one of these dose optimization techniques: automated exposure control; mA and/or kV adjustment per patient size (includes targeted exams where dose is matched to clinical indication); or iterative reconstruction. Contrast material: ISOVUE; Contrast volume: 75 ml; Contrast route: IV; COMPARISON: CT ABDOMEN PELVIS W CON 05/22/2023 10:07 AM FINDINGS: Lungs: Lung bases are unremarkable. Liver: No focal hepatic lesions. Amount of postoperative extraluminal air has decreased in size with minimal residual hepatic air. Gallbladder and bile ducts: There has been a cholecystectomy. Pancreas: No peripancreatic fluid stranding. No main pancreatic ductal dilation. No peripancreatic fluid stranding. No main pancreatic ductal dilation. Spleen: No splenomegaly. Adrenal glands: The adrenal glands are normal. Kidneys and ureters: Nephrograms are symmetric. No nephrolithiasis or hydroureteronephrosis on either side. No solid lesions Stomach and bowel: No bowel wall thickening or distention. Appendix: No evidence of appendicitis. Intraperitoneal space: No discrete collection.There is no evidence of free intraperitoneal or pelvic fluid. Vasculature: Aorta is nonaneurysmal. Lymph nodes: No lymphadenopathy. Urinary bladder: Unremarkable as visualized. Reproductive: Status post hysterectomy. Status post recent left oophorectomy Bones/joints: No acute osseous abnormality. Soft tissues: Unremarkable. IMPRESSION: 1. No acute abnormality in the abdomen or pelvis. 2. Decreased extraluminal air. Residual free air in the right subdiaphragmatic recess, expected from recent surgery
[2023-05-26 16:26] VITALS: BP 109/68; PULSE 99; O2SAT 98
[2023-05-26 16:30] VITALS: BP 110/74; PULSE 100; O2SAT 97
--- NOTE | 2023-05-26 16:33 | ED_ITS ---
Discharge Plan Disposition Patient Disposition: Home, Self-Care Chief Complaint: Recheck/Abnormal Lab/Rx Prescriptions Prescriptions: No Action Orilissa 150 mg tablet 150 mg PO DAILY Qty: 30 2RF polyethylene glycol 3350 [Miralax] 17 gram/dose powder 17 g PO DAILY MDD 17 g Qty: 510 2RF Rx Instructions: Do not take laxative with use of miralax or generic equivalent. Titrate to stool consistency as reviewed. Increase water intake. amitriptyline 10 mg tablet 10 mg PO HS Qty: 30 2RF Orilissa 150 mg tablet 150 mg PO DAILY Qty: 30 11RF ondansetron HCl 4 mg tablet 4 mg PO Q8HP PRN (Reason: Nausea) acetaminophen 500 mg tablet 500 mg PO Q6HP PRN (Reason: fever or pain) ibuprofen 800 mg tablet 800 mg PO Q8H Qty: 30 0RF oxycodone 5 mg tablet 5 mg PO Q8H PRN (Reason: pain) Qty: 12 0RF simethicone 125 mg tablet,chewable 125 mg PO DAILY PRN (Reason: Stomach Upset) Qty: 30 0RF Referrals Follow up/Referrals: Nilda Phipps APRN [Primary Care Provider] - See instructions Activity Restrictions/Add. Instructions Additional Instructions/Restrictions: Call your family doctor to establish care for this visit to the emergency dep artment and schedule follow-up within 48 hours to ensure improvement. If you have any worsening of your condition or any other concerning signs or symptoms, return to the emergency department or your primary care doctor for further evaluation. Continue taking MiraLAX twice daily as you have until having soft stools. Clinical Impressions Clinical Impression: Constipation, Abdominal pain Discharge ED Provider: Johnny Choi General Adult HPI General Chief complaint: Recheck/Abnormal Lab/Rx Stated complaint: sent by Jenny Solomon air pocket in abd Time Seen by Provider: 05/26/23 15:53 Mode of Arrival: Ambulatory Source of Information: Patient Limitations: No Limitations Description of Symptoms (Recalled from ER Triage Doc. by RN): Patient reports she was sent over from PCP office following an xray she had done for a concerning air pocket. Pt recently had her left ovary removed on may 17. History of Present Illness HPI narrative: 32-year-old female with history of complex intra-abdominal surgical history presenting with concern for infection. Patient states that she has had numerous surgeries since March 2022 due to masses/abscesses in her belly. Started with hysterectomy, followed by oophorectomy on the right side complicated by abscess formation and drainage. Had another surgery on 05/17/2023 to remove her left ovary and tube. Since that time, she has had right and left lower abdominal pain. No fevers or chills, nausea or vomiting, has had mild constipation. States that she went to her family doctor today who took an x- ray. Family doctor was concerned for an air pocket, so patient came to the emergency department for further evaluation. Related Data Home Medications Medication Instructions Recorded Confirmed acetaminophen 500 mg tablet 500 mg PO Q6HP PRN fever or pain 02/12/23 05/17/23 ondansetron HCl 4 mg tablet 4 mg PO Q8HP PRN Nausea 02/12/23 05/17/23 Previous Rx's Medication Instructions Recorded ibuprofen 800 mg tablet 800 mg PO Q8H Pain #30 tabs 02/03/23 elagolix 150 mg tablet (Orilissa) 150 mg PO DAILY #30 tabs 02/15/23 amitriptyline 10 mg tablet 10 mg PO HS #30 tabs 04/28/23 polyethylene glycol 3350 17 17 g PO DAILY constipation #510 04/28/23 gram/dose oral powder (Miralax) grams elagolix 150 mg tablet (Orilissa) 150 mg PO DAILY #30 tabs 05/17/23 oxycodone 5 mg tablet 5 mg PO Q8H PRN pain #12 tabs 05/17/23 simethicone 125 mg chewable tablet 125 mg PO DAILY PRN Stomach Upset 05/17/23 #30 tabs Allergies Allergy/AdvReac Type Severity Reaction Status Date / Time latex Allergy Intermediate Hives Verified 05/17/23 09:43 [facility] Disclaimer: The information contained in this section may have been updated after the patient was seen, as this information can be updated by other users. Medical History (Updated 05/26/23 @ 17:58 by Johnny Choi MD) Abdominal pain Abscess of pelvis Atypical chest pain Felix Escobar virus infection Hemoperitoneum Pelvic pain Torticollis Surgical History History of cholecystectomy History of D&C History of hysteroscopy History of ovarian cystectomy History of right oophorectomy History of salpingectomy Hx of colonoscopy Hx of laparoscopy S/P partial hysterectomy Family History Father Coronary artery disease Hypertension Social History Smoking Status: Never smoker alcohol intake: current substance use type: marijuana current occupational status: unemployed Travel in the last 8 weeks: None household members: family ROS Obtained: Yes All systems reviewed & no additional complaints except as documented Physical Exam General General appearance: alert and in no apparent distress Head Head exam: atraumatic and normocephalic Eye Eye exam: Present normal appearance, PERRL and EOMI ENT ENT exam: Present mucous membranes moist Neck Neck exam: Present normal inspection, full ROM and trachea midline Respiratory Respiratory exam: Absent respiratory distress, wheezes, stridor, accessory muscle use or prolonged expiratory phase Cardiovascular Cardiovascular exam: Present regular rate and normal rhythm Abdominal Exam Abdominal exam: Present soft and tenderness (Overlying incision sites, which are clean, dry, intact. Right lower and left lower quadrant. Patient also having right flank tenderness); Absent distention, guarding, rebound or rigidity Extremities Exam Extremities exam: Absent edema Neurological Exam Neurological exam: Present alert, oriented X3, CN II-XII intact and normal gait; Absent motor sensory deficit Skin Skin exam: Present warm and dry; Absent diaphoresis or erythema Medical Decision Making Medical Records Medical records reviewed: Yes I reviewed the patient's medical records. Dirk Inquiry Pt receiving controlled substance: No Dirk was queried for this patient: No Vital Signs: 05/26/23 16:14 05/26/23 16:26 05/26/23 16:30 Pulse Rate 99 H 100 H Pulse Rate [Right Brachial] 100 H Respiratory Rate 18 Blood Pressure 109/68 L 110/74 Blood Pressure [Right Arm] 131/73 Blood Pressure Mean 81 84 Blood Pressure Mean [Right Arm] 92 Blood Pressure Source [Right Arm] Automatic Cuff Blood Pressure Position [Right Arm] Sitting 02 Sat by Pulse Oximetry 98 98 97 Lab Data Lab Results 05/26/23 16:26: Urine Color Yellow, Urine Appearance Clear, Urine pH 7.5, Ur Specific [place] 1.010, Urine Protein Negative, Urine Glucose (UA) Negative, Urine Ketones Negative, Urine Blood Negative, Urine Nitrate Negative, Urine Bilirubin Negative, Urine Urobilinogen 0.2, Ur Leukocyte Esterase Negative, Urine RBC None, Urine WBC None, Ur Squamous Epith Cells 5-10, Urine Bacteria None 05/26/23 16:30: WBC 5.7, RBC 4.25, Hgb 13.2, Hct 38.6, MCV 90.8, MCH 31.2, MCHC 34.3, RDW 12.9, Plt Count 187, MPV 8.6, Neut % (Auto) 58.5, Lymph % (Auto) 33.5, [place] % (Auto) 4.8, Eos % (Auto) 3.1, Baso % (Auto) 0.2, Neut # (Auto) 3.3, Lymph # (Auto) 1.9, [place] # (Auto) 0.3, Eos # (Auto) 0.2, Baso # (Auto) 0.0, Sodium 139, Potassium 3.9, Chloride 105, Carbon Dioxide 28, Anion Gap 9.9, BUN 9, Creatinine 0.70, Estimated Creat Clear 117, Estimated GFR 98, Est GFR ( Amer) 118, Glucose 106 H, Lactate 1.1, Calcium 9.3, Total Bilirubin 0.3, AST 45 H, ALT 47, Alkaline Phosphatase 55, Total Protein 7.1, Albumin 4.4, Globulin 2.7, Albumin/Globulin Ratio 1.6, Lipase 118 05/26/23 16:30 05/26/23 16:30 Orders (Tests/Meds): ED MEDICATIONS Discontinued Medications Generic Name Dose Route Start Last Admin Trade Name Freq PRN Reason Stop Dose Admin Sodium Chloride 1,000 mls @ 999 mls/hr 05/26/23 16:14 05/26/23 16:50 Sod Chlor 0.9% 1000ml Bag IV 05/26/23 17:14 999 mls/hr .Q1H1M ONE Administration Iopamidol 75 ml 05/26/23 16:43 05/26/23 16:43 Iopamidol-370 (76%);100ml Bottle IV 05/26/23 16:44 75 ml ONCE ONE Administration Ketorolac Tromethamine 15 mg 05/26/23 16:35 05/26/23 16:49 Ketorolac 30mg/Ml Vial IV 05/26/23 16:36 15 mg ONCE ONE Administration Sodium Chloride 10 ml 05/26/23 16:43 05/26/23 16:43 Sodium Chloride 0.9% 10ml Syr (Rad Only) IV 05/26/23 16:44 10 ml ONCE ONE Administration ORDERS Category Date Time Status CT abdomen pelvis w con Stat Cat Scan 05/26/23 16:14 Completed Complete Blood Count Auto Diff Stat Lab 05/26/23 16:30 Completed Comprehensive Metabolic Panel Stat Lab 05/26/23 16:30 Completed Lactic Acid Stat Lab 05/26/23 16:30 Completed Lipase Stat Lab 05/26/23 16:30 Completed Urinalysis and Microscopic Stat Lab 05/26/23 16:26 Completed Blood Culture Stat Micro 05/26/23 16:30 Received Medical Decision Narrative: 32-year-old female with history of complex intra-abdominal surgical history presenting with concern for infection. Patient states that she has had numerous surgeries since March 2022 due to masses/abscesses in her belly. Started with hysterectomy, followed by oophorectomy on the right side complicated by abscess formation and drainage. Had another surgery on 05/17/2023 to remove her left ovary and tube. Since that time, she has had right and left lower abdominal pain. No fevers or chills, nausea or vomiting, has had mild constipation. States that she went to her family doctor today who took an x- ray. Family doctor was concerned for an air pocket, so patient came to the emergency department for further evaluation. History was obtained via conversation with patient. On arrival, patient hemodynamically stable, alert, oriented x4, appropriate, GCS 15, moving all extremities spontaneously, pupils equal and reactive to light. Full physical exam performed and significant for well-appearing woman in no acute distress. Incisions are clean, dry, intact and well-appearing. Nonperitoneal abdomen, but she is tender in left and right lower quadrants as well as right flank. Mildly tachycardic 100 to 105 bpm. Differential includes intra-abdominal abscess, postoperative pain, PUD, gastritis, enteritis, gastroenteritis, pancreatitis, SBO, colitis, diverticulitis, nephrolithiasis, UTI, cholecystitis, appendicitis, hepatitis, among others. Patient was given 15 mg Toradol IV for symptomatic management and correction of underlying abnormalities. Workup independently interpreted and significant for nonactionable CBC or chemistry. Urinalysis negative. CT abdomen pelvis without concern for intra- abdominal pathology. Residual postoperative area, but no evidence of infection or acute actionable pathology. Patient does have moderate stool burden. See radiology read for full review of final results. On reevaluation, patient resting comfortably in bed. Relieved by results. Given patient presentation, workup, history, this most likely represents acute postoperative abdominal pain and likely abdominal cramping secondary to constipation. Because patient at baseline without signs or symptoms of clinical decompensation, deemed appropriate for discharge. Results were relayed to patient who voiced understanding and were agreeable to outpatient management and follow up. At the time of discharge the patient was hemodynamically stable, tolerating PO, and mobilizing appropriately. Critical Care Critical Care Time Critical Care Time: No
[2023-05-26 16:43] LABS: Microscopic, Urine URINE MICROSCOPIC (MICROSCOPIC)
[2023-05-26] MEDS: IOPAMIDOL-370 (76%);100ML BOTTLE 75 ML IV (16:43)
[2023-05-26] MEDS: SODIUM CHLORIDE 0.9% 10ML SYR (RAD ONLY) 10 ML IV (16:43)
[2023-05-26] MEDS: KETOROLAC 30MG/ML VIAL 15 MG IV (16:49)
[2023-05-26] MEDS: 0.9 % SODIUM CHLORIDE 1000ML 1,000 ML 999 ML IV (16:50)
[2023-05-26 16:58] LABS: Appearance,Urine CLEAR (Clear); Bilirubin,Urine Negative (Negative); Blood, Urine Negative (Negative); Color,Urine YELLOW (Yellow); Glucose,Urine (UA) Negative (Negative); Ketones,Urine Negative (Negative); Leukocyte Esterase,Urine Negative (Negative); Nitrate,Urine Negative (Negative); PH,Urine 7.5 (5.0-8.5); Protein,Urine Negative (Negative); Urobilinogen,Urine 0.2 EU/dl (0.2)
[2023-05-26 17:32] LABS: Basophils % 0.2 % (0.1-2.0); Eosinophils # 0.2 K/mm3 (0.0-0.4); Eosinophils % 3.1 % (0.1-12.0); Hematocrit 38.6 % (37.0-47.0); Hemoglobin 13.2 g/dL (12.2-16.2); Lymphocytes # 1.9 K/mm3 (0.7-4.5); Lymphocytes % 33.5 % (10-50); Mean Corpuscular HGB Conc 34.3 g/dL (31.8-35.4); Mean Corpuscular Hemoglobin 31.2 pg (27.0-31.2); Mean Corpuscular Volume 90.8 fl (81-99); Mean Platelet Volume 8.6 fl (7.4-10.4); Monocytes # 0.3 K/mm3 (0.1-1.0); Monocytes % 4.8 % (1.7-9.3); Neutrophils # 3.3 K/mm3 (1.8-7.8); Neutrophils % 58.5 % (37.0-80.0); Platelet Count 187 K/mm3 (142-424); Red Blood Count 4.25 M/mm3 (4.20-5.40); Red Cell Distribution Width 12.9 % (11.5-17.5); White Blood Count 5.7 K/mm3 (4.8-10.8)
[2023-05-26 17:44] LABS: Lipase 118 U/L (23-300)
[2023-05-26 17:46] LABS: Alanine Aminotransferase 47 U/L (12-78); Albumin Level 4.4 g/dl (3.5-5.0); Albumin/Globulin Ratio 1.6 (1.1-1.8); Alkaline Phosphatase 55 U/L (38-126); Anion Gap 9.9 mEq/L (5-15); Aspartate Amino Transferase 45 U/L (14-36); Bilirubin,Total 0.3 mg/dl (0.2-1.3); Blood Urea Nitrogen 9 mg/dl (7-17); Calcium 9.3 mg/dl (8.4-10.2); Carbon Dioxide 28 mmol/L (22.0-30.0); Chloride 105 mmol/L (98-107); Creatinine Clearance Estimated 117 mL/min (50-200); Estimated Glomerular Filt Rate 98 ml/min (>60); GFR (African American) 118 ML/MIN (>60); Globulin 2.7 g/dL (1.3-3.2); Glucose 106 mg/dl (74-100); Lactic Acid 1.1 mmol/L (0.7-2.1); Potassium 3.9 mmoL/L (3.5-5.1); Sodium 139 mmol/L (136-145); Total Protein,Serum 7.1 g/dl (6.3-8.2)
[2023-05-26 18:06] VITALS: BP 101/65; PULSE 90; RESP 18; TEMP 36.8; O2SAT 98
[2023-05-26 18:08] VITALS: BP 101/65; PULSE 90; RESP 18; TEMP 36.8; O2SAT 98
== END 2023-05-26 18:09 | disposition home or self-care (01) ==
PROVIDERS: Emergency Provider Emergency Medicine; PCP Nurse Practitioner Family
DX: R10.30 Lower abdominal pain, unspecified (principal); K59.00 Constipation, unspecified
CPT/HCPCS: 74177; 80053; 81001; 83605; 83690; 85025; 87040; 96361; 96374; 99285; Q9967

== ENCOUNTER 2023-06-07 13:51 | Outpatient (CLI) | payer MEDICAID, SELFPAY ==
[2023-06-07 13:58] LABS: MANUAL DIFFERENTIAL MANUAL DIFFERENTIAL (MANUAL DIFF)
[2023-06-07 14:36] LABS: Basophils % 0.3 % (0.1-2.0); Eosinophils # 0.1 K/mm3 (0.0-0.4); Eosinophils % 2.4 % (0.1-12.0); Hematocrit 40.6 % (37.0-47.0); Hemoglobin 13.4 g/dL (12.2-16.2); Lymphocytes # 1.7 K/mm3 (0.7-4.5); Lymphocytes % 31.5 % (10-50); Mean Corpuscular HGB Conc 32.9 g/dL (31.8-35.4); Mean Corpuscular Hemoglobin 31.2 pg (27.0-31.2); Mean Corpuscular Volume 94.9 fl (81-99); Mean Platelet Volume 8.9 fl (7.4-10.4); Monocytes # 0.3 K/mm3 (0.1-1.0); Monocytes % 5.8 % (1.7-9.3); Neutrophils # 3.1 K/mm3 (1.8-7.8); Platelet Count 170 K/mm3 (142-424); Red Blood Count 4.28 M/mm3 (4.20-5.40); Red Cell Distribution Width 13.2 % (11.5-17.5); White Blood Count 5.2 K/mm3 (4.8-10.8)
[2023-06-07 16:35] LABS: Lymphocytes % 38 % (10-50); Monocytes % 4 % (2-9); Neutrophils % 58 % (42-76); Platelet Estimate Normal; RBC Morphology Normal; Total Cells Counted 100
== END 2023-06-07 23:59 ==
LOC: LAB 13:52
PROVIDERS: PCP Nurse Practitioner Family; Visit Provider Obstetrics & Gynecology
DX: R10.9 Unspecified abdominal pain (principal)
CPT/HCPCS: 36415; 85007; 85014; 85018; 85048; 85049

== ENCOUNTER 2023-06-08 11:23 | Emergency (ER) | payer MEDICAID, SELFPAY ==
[2023-06-08 11:24] VITALS: BP 119/76; PULSE 60; RESP 18; TEMP 36.7; O2SAT 100; BMI 25.6
--- NOTE | 2023-06-08 11:48 | PC.NURSE ---
DR CHARLES AT BEDSIDE
--- NOTE | 2023-06-08 11:50 | US_ITS ---
Ultrasound Sonograher: PROCEDURE: US TRANSVAGINAL CLINICAL INDICATION: Left adnexal pain, h/o abscess COMPARISON: CT CT ABDOMEN PELVIS W CON from 05/26/2023 FINDINGS: Transvaginal sonographic images of the pelvis were obtained. UTERUS: Surgically absent Vaginal cuff is intact. Bowel with peristalsis seen at the vault. LEFT OVARY: Not visualized RIGHT OVARY: Not visualized Both ovaries not visualized. Doppler flow to both ovaries are seen. There is no fluid in the cul-de-sac. IMPRESSION: 1. The uterus is surgically absent. The vaginal vault is intact. 2. There is bowel seen at the vault with peristalsis. 3. Ovaries were not visualized today, surgically absent. 4. No fluid in the cul-de-sac. 5. No masses noted. 6. ER physician notified. Dictated by: Faraz Castañeda MD 06/08/2023 13:15 Faraz Castañeda MD in [place] 06/08/2023 13:15
--- NOTE | 2023-06-08 11:52 | ED_ITS ---
Discharge Plan Disposition Patient Disposition: Home, Self-Care Prescriptions Prescriptions: No Action estradiol 1 mg tablet 1 mg PO DAILY Qty: 30 3RF polyethylene glycol 3350 [Miralax] 17 gram/dose powder 17 g PO DAILY MDD 17 g Qty: 510 2RF Rx Instructions: Do not take laxative with use of miralax or generic equivalent. Titrate to stool consistency as reviewed. Increase water intake. amitriptyline 10 mg tablet 10 mg PO HS Qty: 30 2RF Orilissa 150 mg tablet 150 mg PO DAILY Qty: 30 11RF ondansetron HCl 4 mg tablet 4 mg PO Q8HP PRN (Reason: Nausea) ibuprofen 800 mg tablet 800 mg PO Q8H Qty: 30 0RF simethicone 125 mg tablet,chewable 125 mg PO DAILY PRN (Reason: Stomach Upset) Qty: 30 0RF Referrals Follow up/Referrals: Nilda Phipps APRN [Primary Care Provider] - See instructions Activity Restrictions/Add. Instructions Additional Instructions/Restrictions: No evidence of intra-abdominal fluid collection or evidence on your labs of any systemic inflammatory process. Therefore an intra-abdominal abscess is incredibly unlikely. Return with any significant worsening symptoms or other concerns. Clinical Impressions Clinical Impression: Adnexal pain, Nausea & vomiting Instructions Patient Instructions: DI for Acute Abdominal Pain Discharge ED Provider: Ellen Palacios General Adult HPI General Chief complaint: Abdominal Pain Stated complaint: nausea, vomiting, abdominal & pelvic pain Time Seen by Provider: 06/08/23 11:37 Mode of Arrival: Ambulatory Source of Information: Patient Limitations: No Limitations Description of Symptoms (Recalled from ER Triage Doc. by RN): Patient reports left sided lower abdomen pain that started on Tuesday. States she has also been vomiting. History of Present Illness HPI narrative: Patient is a 32-year-old female presents today with left-sided adnexal pain. This been ongoing for the last 3 days with associated nausea and vomiting. She has a complex history extending back into the mid where she was diagnosed with cervical cancer subsequently in 2021 had a hysterectomy and developed a postoperative abscess has had 6 surgeries in the last 2 years including multiple intra-abdominal abscesses. She actually saw her LOCATION DIRECTOR doctor yesterday for this worsening pain was concerned about a developing abscess had a normal white blood cell count given the fact that she had numerous CT scans in the recent past her physician opted to try to avoid radiation exposure and felt that it was unlikely that she had a developing abscess. The patient has had no fevers no diarrhea no urinary symptoms or any other symptoms. She states that she has had worsening pain in the lower left aspect of her abdomen. Related Data Home Medications Medication Instructions Recorded Confirmed ondansetron HCl 4 mg tablet 4 mg PO Q8HP PRN Nausea 02/12/23 06/07/23 Previous Rx's Medication Instructions Recorded ibuprofen 800 mg tablet 800 mg PO Q8H Pain #30 tabs 02/03/23 amitriptyline 10 mg tablet 10 mg PO HS #30 tabs 04/28/23 polyethylene glycol 3350 17 17 g PO DAILY constipation #510 04/28/23 gram/dose oral powder (Miralax) grams elagolix 150 mg tablet (Orilissa) 150 mg PO DAILY #30 tabs 05/17/23 simethicone 125 mg chewable tablet 125 mg PO DAILY PRN Stomach Upset 05/17/23 #30 tabs estradiol 1 mg tablet 1 mg PO DAILY #30 tabs 05/31/23 Allergies Allergy/AdvReac Type Severity Reaction Status Date / Time latex Allergy Intermediate Hives Verified 06/07/23 13:07 [facility] Disclaimer: The information contained in this section may have been updated after the patient was seen, as this information can be updated by other users. Medical History Abdominal pain Abscess of pelvis Atypical chest pain Felix Escobar virus infection Hemoperitoneum Pelvic pain Torticollis Surgical History History of cholecystectomy History of D&C History of hysteroscopy D&C History of ovarian cystectomy 02/03/23, right History of right oophorectomy 02/03/23 History of salpingectomy left. 02/03/23 Hx of colonoscopy 08/26/22 Hx of laparoscopy 04/29/22 S/P partial hysterectomy 03/16/2022 @ [facility] S/P removal of left ovary Family History Father Coronary artery disease Hypertension Social History (Reviewed 06/07/23 @ 13:11 by Karina Ramirez Smoking Status: Never smoker alcohol intake: current substance use type: marijuana current occupational status: unemployed Travel in the last 8 weeks: None household members: family ROS Obtained: Yes All systems reviewed & no additional complaints except as documented Physical Exam General General appearance: alert Respiratory Respiratory exam: Present normal lung sounds bilaterally Cardiovascular Cardiovascular exam: Present regular rate Abdominal Exam Abdominal exam: Present soft and tenderness (Suprapubic and left adnexal tenderness with deep palpation no rebound or guarding or tenderness elsewhere in the abdomen); Absent distention Neurological Exam Neurological exam: Present alert and oriented X3 Medical Decision Making Dirk Inquiry Pt receiving controlled substance: No Vital Signs: 06/08/23 11:24 Temperature 98.0 F Temperature Source Oral Pulse Rate [Radial] 60 Respiratory Rate 18 Blood Pressure [Right Arm] 119/76 Blood Pressure Mean [Right Arm] 90 Blood Pressure Source [Right Arm] Automatic Cuff Blood Pressure Position [Right Arm] Sitting 02 Sat by Pulse Oximetry 100 Oxygen Delivery Method Room Air Lab Data Lab results reviewed: Yes I reviewed the patient's lab results. Lab Results 06/08/23 11:32: WBC 6.4, RBC 4.58, Hgb 14.4, Hct 44.1, MCV 96.4, MCH 31.4 H, MCHC 32.6, RDW 13.3, Plt Count 172, MPV 8.5, Neut % (Auto) 66.1, Lymph % (Auto) 26.0, [place] % (Auto) 5.8, Eos % (Auto) 1.8, Baso % (Auto) 0.3, Neut # (Auto) 4.2, Lymph # (Auto) 1.7, [place] # (Auto) 0.4, Eos # (Auto) 0.1, Baso # (Auto) 0.0, Sodium 139, Potassium 3.6, Chloride 105, Carbon Dioxide 30, Anion Gap 7.6, BUN 10, Creatinine 0.80, Estimated Creat Clear 102, Estimated GFR 84, Est GFR (A frican Amer) 101, Glucose 106 H, Calcium 9.4, Total Bilirubin 0.5, AST 29, ALT 36, Alkaline Phosphatase 65, C-Reactive Protein 1.3, Total Protein 8.0, Albumin 4.8, Globulin 3.2, Albumin/Globulin Ratio 1.5, Procalcitonin < 0.030 06/08/23 11:35: Urine Color Yellow, Urine Appearance Clear, Urine pH 7.5, Ur Specific [place] 1.010, Urine Protein Negative, Urine Glucose (UA) Negative, Urine Ketones Negative, Urine Blood Negative, Urine Nitrate Negative, Urine Bilirubin Negative, Urine Urobilinogen 0.2, Ur Leukocyte Esterase Negative, Urine RBC None, Urine WBC Occasional, Ur Squamous Epith Cells Occasional, Urine Bacteria Trace 06/08/23 11:32 06/08/23 11:32 Orders (Tests/Meds): ED MEDICATIONS Generic Name Dose Route Start Last Admin Trade Name Freq PRN Reason Stop Dose Admin Sodium Chloride 10 ml 06/08/23 11:48 Sodium Chloride 0.9% 10ml Flush Syringe IV 07/08/23 11:47 NEEDED PRN Maintain IV Site Discontinued Medications Generic Name Dose Route Start Last Admin Trade Name Freq PRN Reason Stop Dose Admin Lactated Ringer's 1,000 mls @ 999 mls/hr 06/08/23 12:00 06/08/23 11:59 Lactated Ringer's 1000 Ml Bag IV 06/08/23 13:00 999 mls/hr .Q1H1M ROBERTO Administration Ketorolac Tromethamine 15 mg 06/08/23 11:50 06/08/23 11:59 Ketorolac 30mg/Ml Vial IV 06/08/23 11:51 15 mg ONCE ONE Administration Ondansetron HCl 4 mg 06/08/23 11:50 06/08/23 11:59 Ondansetron 4mg/2ml Vial IV 06/08/23 11:51 4 mg ONCE ONE Administration ORDERS Category Date Time Status US transvaginal Stat Exams 06/08/23 11:50 Taken CBC w/Auto Diff [Complete Blood Count Auto Diff] Stat Lab 06/08/23 11:32 Completed CMP [Comprehensive Metabolic Panel] Stat Lab 06/08/23 11:32 Completed CRP [C-Reactive Protein] Stat Lab 06/08/23 11:32 Completed Procalcitonin Stat Lab 06/08/23 11:32 Completed UA [Urinalysis and Microscopic] Stat Lab 06/08/23 11:35 Completed Medical Decision Narrative: Patient is a 32-year-old female with a relatively benign abdominal exam some tenderness in the left adnexal and suprapubic region presenting today with localized pain there and nausea and vomiting. No diarrhea differential does include intra-abdominal abscess, diverticulitis, urinary tract infection, gastroenteritis etc. Given the fact that she has had numerous CT scans I also agree with her LOCATION DIRECTOR doctor that I would like to try to avoid that at her age for radiation exposure is something we must take into consideration with long- term risks of cancer. Will initiate a transvaginal ultrasound nonspecific inflammatory markers such as CRP and will also get a procalcitonin. Will try to rule out more effectively a intra-abdominal abscess at this point. If her ultrasound does not definitively show a localized fluid collection and her labs are unremarkable and she feels better I will be comfortable not proceeding further with a CT scan however she is aware that if there is any significant abnormalities in any of this initial workup we will have to proceed with a contrasted CT scan for further evaluation given her history which she understands. Will reassess after this initial workup is complete. Assessment 1:08 PM patient remains very stable serial exams are benign. Transvaginal ultrasound was performed I discussed the case with the hospital pharmacy technician as well as looked at the images myself and no obvious intra-abdominal fluid collection. Additionally patient's inflammatory markers including CRP and procalcitonin all within normal limits. While I cannot definitively say there is no intra-abdominal infection I think is incredibly unlikely in this particular setting with normal inflammatory markers and no obvious fluid collection in the location of her pain. I discussed this with the patient we will currently hold off on a CT scan she will return with any worsening symptoms and she was discharged in stable condition. Critical Care Critical Care Time Critical Care Time: No
[2023-06-08 11:56] LABS: Microscopic, Urine URINE MICROSCOPIC (MICROSCOPIC)
[2023-06-08 11:57] LABS: Appearance,Urine CLEAR (Clear); Bilirubin,Urine Negative (Negative); Blood, Urine Negative (Negative); Color,Urine YELLOW (Yellow); Glucose,Urine (UA) Negative (Negative); Ketones,Urine Negative (Negative); Leukocyte Esterase,Urine Negative (Negative); Nitrate,Urine Negative (Negative); PH,Urine 7.5 (5.0-8.5); Protein,Urine Negative (Negative); Urobilinogen,Urine 0.2 EU/dl (0.2)
[2023-06-08] MEDS: LACTATED RINGERS 1000ML 1,000 ML 999 ML IV (11:59)
[2023-06-08] MEDS: KETOROLAC 30MG/ML VIAL 15 MG IV (11:59)
[2023-06-08] MEDS: ONDANSETRON 4MG/2ML VIAL 4 MG IV (11:59)
[2023-06-08 12:03] LABS: Basophils % 0.3 % (0.1-2.0); Chloride 105 mmol/L (98-107); Eosinophils # 0.1 K/mm3 (0.0-0.4); Eosinophils % 1.8 % (0.1-12.0); Hematocrit 44.1 % (37.0-47.0); Hemoglobin 14.4 g/dL (12.2-16.2); Lymphocytes # 1.7 K/mm3 (0.7-4.5); Mean Corpuscular HGB Conc 32.6 g/dL (31.8-35.4); Mean Corpuscular Hemoglobin 31.4 pg (27.0-31.2); Mean Corpuscular Volume 96.4 fl (81-99); Mean Platelet Volume 8.5 fl (7.4-10.4); Monocytes # 0.4 K/mm3 (0.1-1.0); Monocytes % 5.8 % (1.7-9.3); Neutrophils # 4.2 K/mm3 (1.8-7.8); Neutrophils % 66.1 % (37.0-80.0); Platelet Count 172 K/mm3 (142-424); Potassium 3.6 mmoL/L (3.5-5.1); Red Blood Count 4.58 M/mm3 (4.20-5.40); Red Cell Distribution Width 13.3 % (11.5-17.5); Sodium 139 mmol/L (136-145); White Blood Count 6.4 K/mm3 (4.8-10.8)
[2023-06-08 12:05] LABS: Blood Urea Nitrogen 10 mg/dl (7-17); Creatinine Clearance Estimated 102 mL/min (50-200); Estimated Glomerular Filt Rate 84 ml/min (>60); GFR (African American) 101 ML/MIN (>60)
--- NOTE | 2023-06-08 12:05 | PC.NURSE ---
pt going to ultrasound
[2023-06-08 12:06] LABS: Alanine Aminotransferase 36 U/L (12-78); Albumin Level 4.8 g/dl (3.5-5.0); Albumin/Globulin Ratio 1.5 (1.1-1.8); Alkaline Phosphatase 65 U/L (38-126); Anion Gap 7.6 mEq/L (5-15); Aspartate Amino Transferase 29 U/L (14-36); Bilirubin,Total 0.5 mg/dl (0.2-1.3); Carbon Dioxide 30 mmol/L (22.0-30.0); Globulin 3.2 g/dL (1.3-3.2)
[2023-06-08 12:07] LABS: Calcium 9.4 mg/dl (8.4-10.2); Glucose 106 mg/dl (74-100)
[2023-06-08 12:12] LABS: C-Reactive Protein 1.3 mg/L (0-4)
[2023-06-08 12:24] LABS: Bacteria,Urine Trace /lpf; Squamous Epithelial Cell,Urine Occasional #/hpf (0-5); WBC,Urine Occasional #/hpf (0-3)
--- NOTE | 2023-06-08 12:29 | PC.NURSE ---
pt arrived back to room from ultrasound
[2023-06-08 13:03] LABS: Procalcitonin < 0.030 ng/mL (0.0-2.0)
--- NOTE | 2023-06-08 13:04 | PC.NURSE ---
DR CHARLES AT BEDSIDE TO UPDATE A ND REEVALUATE PT
[2023-06-08 13:10] VITALS: BP 107/64; PULSE 56; RESP 16; TEMP 36.7; O2SAT 98
--- NOTE | 2023-06-08 13:11 | PC.NURSE ---
called to speak with er md about ultrasound results
== END 2023-06-08 13:10 | disposition home or self-care (01) ==
PROVIDERS: Emergency Provider Student in an Organized Health Care Education/Training Program; PCP Nurse Practitioner Family
DX: R10.32 Left lower quadrant pain (principal); R11.2 Nausea with vomiting, unspecified; Z85.41 Personal history of malignant neoplasm of cervix uteri
CPT/HCPCS: 76830; 80053; 81001; 84145; 85025; 86140; 96361; 96374; 96375; 99285; J2405

== ENCOUNTER 2023-06-21 15:22 | Outpatient (POV) | payer MEDICAID, SELFPAY | END 2023-06-21 23:59 | disposition home or self-care (01) | LOC: SC 15:23 | PROVIDERS: PCP Nurse Practitioner Family; Visit Provider Dermatology | DX: Z00.00 Encounter for general adult medical examination without abnormal findings (principal) ==

== ENCOUNTER 2023-07-15 07:53 | Outpatient (CLI) | payer MEDICAID, SELFPAY ==
--- NOTE | 2023-07-15 07:53 | FL_ITS ---
FINAL REPORT CLINICAL HISTORY: difficulty swallowing x 1-2 months, swollen lymph node ft: 2.22 dap: 45.99 FINDINGS: ESOPHAGRAM HISTORY: Dysphagia. PROCEDURE: The patient ingested barium. Effervescent crystals were also administered. Fluoroscopic spot films were obtained. Number of images: 22 Fluoro time: 2 minutes 22 seconds DAP: 45.99 uGym2. Radiation exposure in Reference air Kerma: Not provided. mGy. FINDINGS: No esophageal stricture is identified. A 13 mm barium passes through the esophagus and into the stomach without delay. Mild esophageal dysmotility was demonstrated during the exam. There is mild mucosal irregularity of the esophagus which may be secondary to dysmotility. There is no hiatal hernia. No gastroesophageal reflux was demonstrated during the exam. IMPRESSION: Mild mucosal irregularity of the esophagus which may be secondary to esophageal dysmotility. Films reviewed , interpreted and dictated by Dr. Khan. Transcribed by Pepito Perez PA-C. Reviewed, Interpreted and Dictated by Ravi Khan III, MD Transcribed by MARY Calero Authenticated and . [facility]
[2023-07-15] MEDS: BARIUM SULFATE (E-Z-HD 340GM);135ML BOTTLE 135 ML PO (08:49)
[2023-07-15] MEDS: E-Z-GASII EFFERVESCENT GRANULES;1PK 1 EACH PO (08:49)
[2023-07-15] MEDS: BARIUM SULFATE(LIQUID E-Z-PAQUE);355ML BOTTLE 355 ML PO (08:49)
== END 2023-07-15 23:59 ==
LOC: RAD 07:53
PROVIDERS: PCP Nurse Practitioner Family; Visit Provider Nurse Practitioner
DX: R13.10 Dysphagia, unspecified (principal)
CPT/HCPCS: 74220

== ENCOUNTER 2023-07-21 09:28 | Emergency (ER) | payer MEDICAID, SELFPAY ==
[2023-07-21 09:29] VITALS: BP 115/79; PULSE 81; RESP 15; TEMP 37.1; O2SAT 100; BMI 25.2
[2023-07-21 09:38] LABS: Microscopic, Urine URINE MICROSCOPIC (MICROSCOPIC)
[2023-07-21 09:40] VITALS: PULSE 97; O2SAT 100
[2023-07-21 09:44] LABS: Appearance,Urine CLEAR (Clear); Bilirubin,Urine Negative (Negative); Blood, Urine Negative (Negative); Color,Urine YELLOW (Yellow); Glucose,Urine (UA) Negative (Negative); Ketones,Urine Negative (Negative); Leukocyte Esterase,Urine Negative (Negative); Nitrate,Urine Negative (Negative); Protein,Urine Negative (Negative); Urobilinogen,Urine 0.2 EU/dl (0.2)
--- NOTE | 2023-07-21 09:52 | US_ITS ---
Ultrasound Sonograher: PROCEDURE: US TRANSVAGINAL CLINICAL INDICATION: history of LLQ pelviabscess, acute on chronic pain COMPARISON: CT CT ABDOMEN PELVIS W CON from 05/26/2023 US US TRANSVAGINAL from 06/08/2023 FINDINGS: Transvaginal sonographic images of the pelvis were obtained. UTERUS: Uterus is surgically absent. The vaginal vault is intact. LEFT OVARY: Surgically absent RIGHT OVARY: Surgically absent There appears to be a trace amount amount of fluid in the right adnexa. Both ovaries are surgically absent. There is no fluid in the cul-de-sac. IMPRESSION: 1. The uterus has been surgically removed. The vaginal vault is intact. 2. Both ovaries have been surgically removed. There is a trace amount of fluid in the right adnexal area. 3. The vaginal vault is intact. There is no fluid in the cul-de-sac. Dictated by: Faraz Castañeda MD 07/21/2023 11:07 Faraz Castañeda MD in OV 07/21/2023 11:07
[2023-07-21] MEDS: KETOROLAC 30MG/ML VIAL 15 MG IV (09:54)
[2023-07-21] MEDS: ACETAMINOPHEN 500MG TAB 1000 MG PO (09:54)
--- NOTE | 2023-07-21 09:55 | HMH.EDGENADL ---
Discharge Plan Disposition Patient Disposition: Home, Self-Care Chief Complaint: Abdominal Pain Prescriptions Prescriptions: No Action estradiol 1 mg tablet 1 mg PO DAILY Qty: 30 3RF polyethylene glycol 3350 [Miralax] 17 gram/dose powder 17 g PO DAILY MDD 17 g Qty: 510 2RF Rx Instructions: Do not take laxative with use of miralax or generic equivalent. Titrate to stool consistency as reviewed. Increase water intake. amitriptyline 25 mg tablet 25 mg PO DAILY Qty: 30 2RF Orilissa 150 mg tablet 150 mg PO DAILY Qty: 30 11RF ibuprofen 800 mg tablet 800 mg PO Q8H Qty: 30 0RF Referrals Follow up/Referrals: Nilda Phipps APRN [Primary Care Provider] - See instructions Activity Restrictions/Add. Instructions Additional Instructions/Restrictions: Talk to your family doctor and [employer] regarding management of chronic pelvic pain. You may also discuss lysis of adhesions procedure with your family doctor or [employer] to discuss candidacy. Call your family doctor to establish care for this visit to the emergency department and schedule follow-up within 48 hours to ensure improvement. If you have any worsening of your condition or any other concerning signs or symptoms, return to the emergency department or your primary care doctor for further evaluation. Clinical Impressions Clinical Impression: Pelvic pain Instructions Patient Instructions: DI for Acute Abdominal Pain Discharge ED Provider: Johnny Choi General Adult HPI General Chief complaint: Abdominal Pain Stated complaint: pelvic pain, nausea, headache Time Seen by Provider: 07/21/23 09:31 Mode of Arrival: Ambulatory Source of Information: Patient Limitations: No Limitations Description of Symptoms (Recalled from ER Triage Doc. by RN): pt comes in with multiple complaints. pt reports multiple symptoms ongoing for the past 2 weeks. pt reports pain in left side on flank radiating in back and down into groin. pt reports she has been seen by dr emelia voss for obgyn. pt reports she has had multiple abdominal surgeries. pt reports swollen lymph node in neck ongoing for the past few months. pt reports she was ordered a CT scan but was denied by [employer] insurance. pt reports she has been feeling weakness ongoing. pt states, she just feels like something is wrong. History of Present Illness HPI narrative: 32-year-old female history of complex abdominal surgical history including laparoscopies for endometriosis, separate laparoscopic right oophorectomy, left nephrectomy, hysterectomy, intra-abdominal/pelvic abscess development necessitating laparoscopic drainage presenting with acute on chronic left lower quadrant pain. Patient states that she has had left lower quadrant pain generally since she started having all of the surgeries done in 2021, specifically since left oophorectomy/salpingectomy in May 2023. Been seen in the emergency department multiple times for left lower quadrant pain, stating it is sharp, radiates to her left flank. Intermittent, made worse with changes in position such as sitting down from standing up and standing up from sitting down. Has been taking Tylenol and Motrin intermittently, which seems to help with pain, but fearful of taking too much given recent elevation in liver enzymes due to concern for taking too much Tylenol. She states she has also been having urinary urgency, frequency, feeling of incomplete emptying with 1 episode of noted incontinence. No fevers or chills, recent vomiting, dysuria or hematuria, blood in her stool, consistent constipation or diarrhea (likely has IBS, mixed type with both constipation and diarrhea), or any other concerns. Please note that above description of symptoms, in this electronic medical record under categorization of recalled from ER triage doctor by RN are reflective of an initial nursing assessment, however, is not reflective of my full history and physical exam that was personally taken and clarified. Consequentially, this preceding description of symptoms, which may include the patient's categorized chief complaint in the EMR, do not reflect my personal clinical impression, and the ultimate description of history of present illness and patient stated complaints should be deferred to this section of the note. Unless stated otherwise or congruent with this section of the note, additional signs, symptoms, or incongruence should be interpreted as inaccurate with my clinical impression. Related Data Previous Rx's Medication Instructions Recorded ibuprofen 800 mg tablet 800 mg PO Q8H Pain #30 tabs 02/03/23 polyethylene glycol 3350 17 17 g PO DAILY constipation #510 04/28/23 gram/dose oral powder (Miralax) grams elagolix 150 mg tablet (Orilissa) 150 mg PO DAILY #30 tabs 05/17/23 estradiol 1 mg tablet 1 mg PO DAILY #30 tabs 05/31/23 amitriptyline 25 mg tablet 25 mg PO DAILY #30 tabs 06/30/23 Allergies Allergy/AdvReac Type Severity Reaction Status Date / Time latex Allergy Intermediate Hives Verified 07/21/23 10:28 [facility] Disclaimer: The information contained in this section may have been updated after the patient was seen, as this information can be updated by other users. Medical History Dysphagia Thyroid nodule Felix Escobar virus infection Abdominal pain Pelvic pain Hemoperitoneum Abscess of pelvis Torticollis Atypical chest pain Surgical History S/P removal of left ovary History of D&C History of cholecystectomy History of salpingectomy left. 02/03/23 History of ovarian cystectomy 02/03/23, right History of right oophorectomy 02/03/23 History of hysteroscopy D&C Hx of colonoscopy 08/26/22 Hx of laparoscopy 04/29/22 S/P partial hysterectomy 03/16/2022 @ [facility] Family History Father Coronary artery disease Hypertension Social History Smoking Status: Former smoker tobacco type: cigarettes alcohol intake: current substance use type: marijuana current occupational status: unemployed Travel in the last 8 weeks: None household members: family ROS Obtained: Yes All systems reviewed & no additional complaints except as documented Physical Exam General General appearance: alert and in no apparent distress Head Head exam: atraumatic and normocephalic Eye Eye exam: Present normal appearance, PERRL and EOMI ENT ENT exam: Present mucous membranes moist Neck Neck exam: Present normal inspection, full ROM and trachea midline Respiratory Respiratory exam: Absent respiratory distress, wheezes, stridor, accessory muscle use or prolonged expiratory phase Cardiovascular Cardiovascular exam: Present normal rhythm Abdominal Exam Abdominal exam: Present soft; Absent distention, tenderness, guarding, rebound or rigidity Comment: Pain improved with application of pressure. No overlying changes Extremities Exam Extremities exam: Absent edema Neurological Exam Neurological exam: Present alert, oriented X3, CN II-XII intact and normal gait; Absent motor sensory deficit Skin Skin exam: Present warm and dry; Absent diaphoresis or erythema Medical Decision Making Medical Records Medical records reviewed: Yes I reviewed the patient's medical records. Dirk Inquiry Pt receiving controlled substance: No Dirk was queried for this patient: No Vital Signs: 07/21/23 09:29 07/21/23 09:40 07/21/23 10:00 Temperature 98.8 F Temperature Source Oral Pulse Rate 97 H 63 Pulse Rate [Left Radial] 81 Respiratory Rate 15 Blood Pressure 110/56 L Blood Pressure [Right Arm] 115/79 Blood Pressure Mean 86 Blood Pressure Mean [Right Arm] 91 02 Sat by Pulse Oximetry 100 100 99 Oxygen Delivery Method Room Air Lab Data Lab Results 07/21/23 09:32: Urine Color Yellow, Urine Appearance Clear, Urine pH 6.0, Ur Specific [place] 1.020, Urine Protein Negative, Urine Glucose (UA) Negative, Urine Ketones Negative, Urine Blood Negative, Urine Nitrate Negative, Urine Bilirubin Negative, Urine Urobilinogen 0.2, Ur Leukocyte Esterase Negative 07/21/23 09:55: WBC 5.4, RBC 4.74, Hgb 14.7, Hct 44.2, MCV 93.3, MCH 31.0, MCHC 33.2, RDW 12.9, Plt Count 187, MPV 8.4, Neut % (Auto) 63.3, Lymph % (Auto) 27.4, Carver % (Auto) 4.4, Eos % (Auto) 3.4, Baso % (Auto) 1.5, Neut # (Auto) 3.4, Lymph # (Auto) 1.5, Carver # (Auto) 0.2, Eos # (Auto) 0.2, Baso # (Auto) 0.1, Sodium 139, Potassium 4.2, Chloride 104, Carbon Dioxide 29, Anion Gap 10.2, BUN 11, Creatinine 0.80, Estimated Creat Clear 101, Estimated GFR 84, Est GFR ( Amer) 101, Glucose 109 H, Calcium 9.8, Total Bilirubin 0.5, AST 34, ALT 45, Alkaline Phosphatase 67, C-Reactive Protein 1.6, Total Protein 7.5, Albumin 4.7, Globulin 2.8, Albumin/Globulin Ratio 1.7 07/21/23 09:55 07/21/23 09:55 Orders (Tests/Meds): ED MEDICATIONS Discontinued Medications Generic Name Dose Route Start Last Admin Trade Name Freq PRN Reason Stop Dose Admin Acetaminophen 1,000 mg 07/21/23 09:34 07/21/23 09:54 Acetaminophen 500mg Tab PO 07/21/23 09:35 1,000 mg ONCE ONE Administration Ketorolac Tromethamine 15 mg 07/21/23 09:34 07/21/23 09:54 Ketorolac 30mg/Ml Vial IV 07/21/23 09:35 15 mg ONCE ONE Administration ORDERS Category Date Time Status US transvaginal Stat Exams 07/21/23 09:52 Taken CBC w/Auto Diff [Complete Blood Count Auto Diff] Stat Lab 07/21/23 09:55 Completed CMP [Comprehensive Metabolic Panel] Stat Lab 07/21/23 09:55 Completed CRP [C-Reactive Protein] Stat Lab 07/21/23 09:55 Completed Procalcitonin Stat Lab 07/21/23 09:55 Received UA [Urinalysis and Microscopic] Stat Lab 07/21/23 09:32 Results Medical Decision Narrative: 32-year-old female history of complex abdominal surgical history including laparoscopies for endometriosis, separate laparoscopic right oophorectomy, left nephrectomy, hysterectomy, intra-abdominal/pelvic abscess development necessitating laparoscopic drainage presenting with acute on chronic left lower quadrant pain. Patient states that she has had left lower quadrant pain generally since she started having all of the surgeries done in 2021, specifically since left oophorectomy/salpingectomy in May 2023. Been seen in the emergency department multiple times for left lower quadrant pain, stating it is sharp, radiates to her left flank. Intermittent, made worse with changes in position such as sitting down from standing up and standing up from sitting down. Has been taking Tylenol and Motrin intermittently, which seems to help with pain, but fearful of taking too much given recent elevation in liver enzymes due to concern for taking too much Tylenol. She states she has also been having urinary urgency, frequency, feeling of incomplete emptying with 1 episode of noted incontinence. No fevers or chills, recent vomiting, dysuria or hematuria, blood in her stool, consistent constipation or diarrhea (likely has IBS, mixed type with both constipation and diarrhea), or any other concerns. History obtained with patient and chart review. On arrival, patient hemodynamically stable, alert, oriented, appropriate and interactive. Abdomen soft, nontender, nondistended. Overlying incisions look very well. Well-healed. No flank tenderness, overall unremarkable. Differential includes adhesions, UTI, nephrolithiasis, pelvic abscess, proctitis, diverticulitis, IBD, among others. Patient given Toradol and acetaminophen for maintenance of pain. Because patient has had numerous CT scans in the past couple of months without return of abscess, no fevers or chills or infectious symptoms, isolated pain that is intermittent and is very well-appearing on my physical exam without signs of peritonitis, lab work, urine, transvaginal ultrasound will be obtained. CT scan will be withheld at this time. Possibly order if abnormalities identified on stated workup. Interpretation of workup demonstrates normal CBC and chemistry. CRP negative. Pelvic ultrasound independently interpreted after discussion with cad technician. No left lower quadrant pathology. Patient does have scant amount of pelvic free fluid on the right. Urinalysis was negative. Extended conversation was had with patient. I feel this is most likely due to chronic postsurgical abdominal pain, likely adhesions. Given incredibly benign exam, negative hematologic workup, negative imaging and chronicity of pain without decompensation, I feel there is incredibly low likelihood life or limb threatening process occurring. There is recommended she follow-up with her [employer] and primary care provider for discussion of chronic pelvic pain management and potential discussion of lysis of adhesions. Patient voices her understanding. Because patient at baseline without signs or symptoms of clinical decompensation, deemed appropriate for discharge. Results were relayed to patient who voiced understanding and were agreeable to outpatient management and follow up. I discussed my clinical impression with patient and answered all questions. At this time, the evidence for any other entities in the differential is insufficient to warrant any further testing or ED observation. This was explained as well. Advisory was given that persistent or worsening symptoms require further evaluation. I confirmed the understanding of this discussion. Critical Care Critical Care Time Critical Care Time: No
[2023-07-21 10:00] VITALS: BP 110/56; PULSE 63; O2SAT 99
[2023-07-21 10:04] LABS: Basophils # 0.1 K/mm3 (0-0.2); Basophils % 1.5 % (0.1-2.0); Eosinophils # 0.2 K/mm3 (0.0-0.4); Eosinophils % 3.4 % (0.1-12.0); Hematocrit 44.2 % (37.0-47.0); Hemoglobin 14.7 g/dL (12.2-16.2); Lymphocytes # 1.5 K/mm3 (0.7-4.5); Lymphocytes % 27.4 % (10-50); Mean Corpuscular HGB Conc 33.2 g/dL (31.8-35.4); Mean Corpuscular Volume 93.3 fl (81-99); Mean Platelet Volume 8.4 fl (7.4-10.4); Monocytes # 0.2 K/mm3 (0.1-1.0); Monocytes % 4.4 % (1.7-9.3); Neutrophils # 3.4 K/mm3 (1.8-7.8); Neutrophils % 63.3 % (37.0-80.0); Platelet Count 187 K/mm3 (142-424); Red Blood Count 4.74 M/mm3 (4.20-5.40); Red Cell Distribution Width 12.9 % (11.5-17.5); White Blood Count 5.4 K/mm3 (4.8-10.8)
--- NOTE | 2023-07-21 10:13 | PC.NURSE ---
pt to ultrasound via wheelchair
[2023-07-21 10:15] LABS: Alanine Aminotransferase 45 U/L (12-78); Albumin Level 4.7 g/dl (3.5-5.0); Albumin/Globulin Ratio 1.7 (1.1-1.8); Alkaline Phosphatase 67 U/L (38-126); Anion Gap 10.2 mEq/L (5-15); Aspartate Amino Transferase 34 U/L (14-36); Bilirubin,Total 0.5 mg/dl (0.2-1.3); Blood Urea Nitrogen 11 mg/dl (7-17); Calcium 9.8 mg/dl (8.4-10.2); Carbon Dioxide 29 mmol/L (22.0-30.0); Chloride 104 mmol/L (98-107); Creatinine Clearance Estimated 101 mL/min (50-200); Estimated Glomerular Filt Rate 84 ml/min (>60); GFR (African American) 101 ML/MIN (>60); Globulin 2.8 g/dL (1.3-3.2); Glucose 109 mg/dl (74-100); Potassium 4.2 mmoL/L (3.5-5.1); Sodium 139 mmol/L (136-145); Total Protein,Serum 7.5 g/dl (6.3-8.2)
[2023-07-21 10:20] LABS: C-Reactive Protein 1.6 mg/L (0-4)
[2023-07-21 10:55] VITALS: BP 102/74; PULSE 88; RESP 18; TEMP 37.1; O2SAT 98
--- NOTE | 2023-07-21 10:55 | PC.NURSE ---
dr stephens at bedside to update pt
[2023-07-21 11:12] LABS: Bacteria,Urine Trace /lpf; Squamous Epithelial Cell,Urine Occasional #/hpf (0-5); WBC,Urine Occasional #/hpf (0-3)
[2023-07-21 11:13] LABS: Procalcitonin < 0.030 ng/mL (0.0-2.0)
== END 2023-07-21 11:00 | disposition home or self-care (01) ==
PROVIDERS: Emergency Provider Emergency Medicine; PCP Nurse Practitioner Family
DX: R10.2 Pelvic and perineal pain (principal); R10.32 Left lower quadrant pain
CPT/HCPCS: 76830; 80053; 81001; 84145; 85025; 86140; 96374; 99284

== ENCOUNTER 2023-07-25 09:47 | Outpatient (CLI) | payer MEDICAID, SELFPAY ==
--- NOTE | 2023-07-25 09:49 | XR_ITS ---
FINAL REPORT CLINICAL HISTORY: left hip pain FINDINGS: LEFT HIP: Two views of the left hip demonstrate no acute fracture or dislocation. The joint spaces appear normal. The visualized bony structures are well aligned. No soft tissue abnormality is seen. IMPRESSION: No acute bony abnormality. Reviewed, Interpreted and Dictated by Storm Avitia MD Transcribed by Romelia Rodríguez Authenticated and [facility]
--- NOTE | 2023-07-25 09:49 | XR_ITS ---
FINAL REPORT CLINICAL HISTORY: left leg pain FINDINGS: LEFT TIBIA/FIBULA 2 views were obtained. There is no acute fracture or dislocation. The joint spaces are intact. There is no soft tissue abnormality. IMPRESSION: No acute bony abnormality. Reviewed, Interpreted and Dictated by Storm Avitia MD Transcribed by Romelia Rodríguez Authenticated and . [facility]
--- NOTE | 2023-07-25 09:49 | XR_ITS ---
FINAL REPORT CLINICAL HISTORY: Left upper arm pain FINDINGS: LEFT HUMERUS 2 views were obtained. There is no acute fracture or dislocation. The joint spaces are intact. There is no soft tissue abnormality. IMPRESSION: No acute bony abnormality. Reviewed, Interpreted and Dictated by Storm Avitia MD Transcribed by Romelia Rodríguez Authenticated and [facility]
--- NOTE | 2023-07-25 09:49 | XR_ITS ---
FINAL REPORT CLINICAL HISTORY: left knee pain FINDINGS: LEFT KNEE 2 views of the left knee were obtained. There is no acute fracture or dislocation. The joint spaces are intact. There is no soft tissue abnormality. IMPRESSION: No acute fracture Reviewed, Interpreted and Dictated by Storm Avitia MD Transcribed by Romelia Rodríguez Authenticated and [facility]
== END 2023-07-25 23:59 | disposition home or self-care (01) ==
LOC: RAD 09:47
PROVIDERS: PCP Nurse Practitioner Family; Visit Provider Nurse Practitioner Family
DX: M25.552 Pain in left hip (principal); M79.605 Pain in left leg
CPT/HCPCS: 73060; 73502; 73560; 73590

== ENCOUNTER 2023-08-03 08:29 | Day surgery (SDC) | payer MEDICAID, SELFPAY ==
[2023-08-01 12:35] VITALS: BMI 25.7
[2023-08-03 08:44] VITALS: BP 96/61; PULSE 72; RESP 16; TEMP 36.4; O2SAT 100
[2023-08-03] MEDS: LACTATED RINGERS 1000ML 1,000 ML 100 ML IV (08:51)
[2023-08-03 09:31] VITALS: O2SAT 100
--- NOTE | 2023-08-03 09:35 | EXP.ANES.CKL ---
[facility] Disclaimer: The information contained in this section may have been updated after the patient was seen, as this information can be updated by other users. Medical History Abdominal pain Abscess of pelvis Atypical chest pain Dysphagia Felix Escobar virus infection Hemoperitoneum Pelvic pain Thyroid nodule Torticollis Surgical History History of cholecystectomy History of D&C History of hysteroscopy D&C History of ovarian cystectomy 02/03/23, right History of right oophorectomy 02/03/23 History of salpingectomy left. 02/03/23 Hx of colonoscopy 08/26/22 Hx of laparoscopy 04/29/22 S/P partial hysterectomy 03/16/2022 @ [facility] S/P removal of left ovary Family History Father Coronary artery disease Hypertension Social History Smoking Status: Former smoker tobacco type: cigarettes alcohol intake: current substance use type: marijuana current occupational status: unemployed Travel in the last 8 weeks: None household members: family [facility] Anesthesia Checklist Patient Identification Patient Identification: Verbal (Name & ) Structural Data Admitted From: Home Planned Operative Procedure/s: egd Consent for Planned Operative Procedure(s) Verified: Yes Additional verifications Anesthesia Reactions: No Hx Blood Transfusions: No Blood Transfusion Reaction: No Airway Assessment Mallampati Score:: Class II C-Spine Mobility Assessed: Yes TMJ Mobility Assessed: Yes Dentition: Good Dentition Neurological Assessment Level of Consciousness: Awake, Alert and Appropriate Anesthesia Plan Anesthesia Risk discussed: Yes Anesthesia Plan: Verified ASA Class: II Anesthesia Type: MAC
[2023-08-03 09:49] VITALS: BP 95/59; PULSE 74; RESP 16; TEMP 36.2; O2SAT 95
--- NOTE | 2023-08-03 09:49 | HMH.SCOPE ---
Procedure: Date: 08/03/23 Patient Date of :: 1990 Procedure Performed:: EGD Indications:: The patient is a 32-year-old who presents for EGD evaluation of dysphagia. Patient had a recent barium esophagram that reports possible esophageal dysmotility. Performing Provider:: Alexis Mcnally MD Referring Provider:: Bre Phipps APRN Sedation:: See RN records Procedure:: The gastroscope was gently passed through the incisoral orifice into the oral cavity and under direct visualization the esophagus was intubated. The endoscope was passed down the esophagus, through the stomach, and into the duodenum. Color, texture, mucosa, and anatomy of the esophagus, stomach, and duodenum were carefully examined with the scope. Findings:: The esophagus appeared normal. The Z-line was measured at 38 cm. Biopsies were obtained from the mid and distal esophagus for histology. Empiric esophageal dilatation was performed with a 54 English Moore dilator. There was mild inflammation of the stomach characterized by erythema and scattered erosions in the antrum.. Biopsies were obtained from the gastric antrum and body. The examined duodenum appeared normal. Impression: Normal-appearing esophagus Distal erosive gastritis Recommendations:: Await pathology results Follow-up with referring provider as previously scheduled Complications:: none Estimated blood obtained (mL): 0 Colonoscopy Component Colonoscopy Component Was a colonoscopy performed during today's procedure?: No
[2023-08-03 09:59] VITALS: BP 94/56; PULSE 67; RESP 16; O2SAT 100
[2023-08-03 10:05] VITALS: BP 100/58; PULSE 62; RESP 18; O2SAT 100
== END 2023-08-03 10:07 | disposition home or self-care (01) ==
PROVIDERS: PCP Nurse Practitioner Family; Visit Provider Internal Medicine
PROC: 0DJ08ZZ Inspection of Upper Intestinal Tract, Via Natural or Artificial Opening Endoscopic (ICD-10-PCS; CPT 43235; principal; 2023-08-03 09:30)
DX: R13.10 Dysphagia, unspecified (principal); K29.60 Other gastritis without bleeding; K21.00 Gastro-esophageal reflux disease with esophagitis, without bleeding
CPT/HCPCS: 43239; 43248

== ENCOUNTER 2023-08-10 11:47 | Outpatient (CLI) | payer MEDICAID, SELFPAY ==
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
--- NOTE | 2023-08-10 11:52 | XR_ITS ---
FINAL REPORT CLINICAL HISTORY: pelvic pain COMPARISON: None FINDINGS: PELVIS: A single AP view of the pelvis reveals normal-appearing hips. The bones of the pelvis are unremarkable without evidence of fracture or dislocation. No significant soft tissue abnormality is identified. IMPRESSION: Unremarkable single view pelvis. Reviewed, Interpreted and Dictated by Freddie Rodríguez MD Transcribed by Jennifer Salmeron Authenticated and [facility]
== END 2023-08-10 23:59 | disposition home or self-care (01) ==
LOC: RAD 11:48
PROVIDERS: PCP Nurse Practitioner Family; Visit Provider Nurse Practitioner Family
DX: M79.672 Pain in left foot (principal); M79.671 Pain in right foot; R10.2 Pelvic and perineal pain
CPT/HCPCS: 72170; 73630

== ENCOUNTER 2023-08-15 09:37 | Outpatient (CLI) | payer MEDICAID, SELFPAY ==
[2023-08-16 14:21] LABS: EBV Ab VCA, IgG 48.4 U/mL (0.0-17.9); EBV Ab VCA, IgM <36.0 U/mL (0.0-35.9)
== END 2023-08-15 23:59 | disposition home or self-care (01) ==
LOC: LAB.DROPOF 08-18 09:37
PROVIDERS: PCP Nurse Practitioner Family; Visit Provider Nurse Practitioner Family
DX: B27.90 Infectious mononucleosis, unspecified without complication (principal)
CPT/HCPCS: 86664; 86665

== ENCOUNTER 2023-08-29 08:33 | Outpatient (CLI) | payer MEDICAID, SELFPAY ==
--- NOTE | 2023-08-29 08:34 | MR_ITS ---
FINAL REPORT CLINICAL HISTORY: Evaluate for foot pain FINDINGS: Multiplanar MR imaging of the left foot was performed without contrast. The bony structures are intact without evidence of fracture, bone bruise or marrow edema. The flexor and extensor tendons are intact. The musculature is intact. The plantar aponeurosis is intact. No soft tissue mass or cyst is identified. IMPRESSION: No focal abnormality is identified. Reviewed, Interpreted and Dictated by Storm Avitia MD Transcribed by Stacey Hauser Authenticated and [facility]
== END 2023-08-29 23:59 | disposition home or self-care (01) ==
LOC: RAD 08:34
PROVIDERS: PCP Nurse Practitioner Family; Visit Provider Podiatrist
DX: M79.672 Pain in left foot (principal); M84.375S Stress fracture, left foot, sequela; M77.52 Other enthesopathy of left foot and ankle; M67.88 Other specified disorders of synovium and tendon, other site; M77.42 Metatarsalgia, left foot
CPT/HCPCS: 73718

== ENCOUNTER 2023-09-16 09:00 | Outpatient (RCR) | payer MEDICAID, SELFPAY | END 2023-09-16 09:05 | disposition home or self-care (01) | LOC: PT 09:00 | PROVIDERS: Visit Provider Nurse Practitioner | DX: M25.552 Pain in left hip (principal) | CPT/HCPCS: 20561; 97010; 97014; 97035; 97110; 97163; G0283 ==

== ENCOUNTER 2023-09-21 09:52 | Outpatient (RCR) | payer MEDICAID, SELFPAY ==
--- NOTE | 2023-09-21 11:34 | HMH.PTOPEV ---
PT Outpatient Evaluation Rehab PT Outpatient Evaluation Start: 09/21/23 10:50 Freq: Status: Active Protocol: Document 09/21/23 10:50 MADINAELIDA (Rec: 09/21/23 11:34 JAIRO Desktop) E-signed By Adam Richardson, PT Outpatient Therapy Subjective History Subjective History Patient is a 33 year old female presenting to outpatient PT with reports of L foot/ankle pain of insidious onset starting approx 2 years ago. Most recent imaging negative for any soft tissue damage. No other comorbidities to report. New diagnosis of cancer in past 12 No months? Chief Complaint Pain,Swelling,Gives out/ Unstable Symptom Type Sharp Symptoms Relieved By Rest/Positioning Symptoms Aggravated By Standing,Physical Activity, Walking Prior Functional Limitations None Current Functional Limitations Lifting,Housework,Standing, Walking,Bending/Stooping Symptom Description Constant and Continuous Level of pain today (0-10) 3 Pain scale - at its best (0-10) 3 Pain scale - at its worst (0-10) 7 Ankle/Foot Eval Gait Observation General Gait Pattern Observation Decrease Weight Bear (L) Palpation Tenderness left Ankle/Foot Palpation Findings Tenderness Ankle/Foot Palpation Overall Comment Distal posterior tibialis/ATFL 3/4 ROM Ankle/Foot Dorsiflexion w/Knee Extended 7 Active Range Motion (degrees) Ankle/Foot Plantar Flexion Active Range WNL of Motion (degrees) Ankle/Foot Eversion Active Range of WNL Motion (degrees) Ankle/Foot Inversion Active Range of WNL Motion (degrees) Ankle/Foot ROM Limitations Soft Tissue Tightness MMT Ankle Dorsiflexion Strength Grade 5 Normal Ankle Plantarflexion Strength Grade 5 Normal Foot Eversion Strength Grade 4 Good Foot Inversion Strength Grade 4 Good Special Tests Ankle Anterior Drawer Test Negative Left Talar Tilt Test Negative Left Foot Interdigital Neuroma Test Negative Left Lower Extremity Functional Index Activities Today, do you or would you have any difficulty at all with: a.Any of your usual work, housework or Quite a bit of difficulty school activities b. Your usual hobbies, recreational or Quite a bit of difficulty sporting activities c. Getting into or out of the bath No difficulty d. Walking between rooms No difficulty e. Putting on your shoes or socks No difficulty f. Squatting No difficulty g. Lifting an object, like a bag of No difficulty groceries from the floor h. Performing light activities around A little bit of difficulty your home i. Performing heavy activities around Moderate difficulty your home j. Getting into or out of a car A little bit of difficulty k. Walking 2 blocks Quite a bit of difficulty l. Walking a mile Moderate difficulty m. Going up or down 10 stairs (about 1 A little bit of difficulty flight of stairs) n. Standing for 1 hour Moderate difficulty o. Sitting for 1 hour A little bit of difficulty p. Running on even ground Moderate difficulty q. Running on uneven ground Moderate difficulty r. Making sharp turns while running fast Moderate difficulty s. Hopping Moderate difficulty t. Rolling over in bed No difficulty LEFI Score Lower Extremity Functional Index Score 53 Outpatient Therapy Assessment Impairments Problems/Impairmments Palpation Tenderness,Impaired Range of Motion,Impaired Strength,Impaired Gait Pattern ,Impaired Walking,Impaired Standing,Impaired Household Care,Impaired Stair Climbing, Impaired Incline Stepping, Impaired Stepping on Uneven Surface,Impaired Squatting, Impaired Recreational Activities Prognosis Rehab Potential Good Clinical Impression Consistent with Diagnosis Yes Short Term Goals Number of Weeks 2 Decrease Subjective C/O Pain Yes: 510 at worst Patient to be Ind w/ HEP Yes Transfusion Aide Goals Number of Weeks 4-6 Decreased Palpation Tenderness Yes: 1/4 Increase Range of Motion Yes: WNL al planes Increase Strength Yes: 5/5 all planes Increase Ability to Walk Yes: 1 hr without difficulty Increase Ability to Stand Yes: Improve Ability For Household Care Yes Improve LEFI Score Yes: >70 Decrease Subjective C/O Pain Yes: 2/10 at worst Outpatient Therapy Plan of Care Treatment Plan May Include Therapeutic Exercise Including Home Yes Exercise Program Manual Therapy Techniques Yes Neuromuscular Re-education Yes Therapeutic Activities to Return to Yes Previous Functional/Work Level Gait Training Yes ADL/Self Care Education Yes Dry Needling Yes Thermal Modalities Yes Electrical Stimulation Yes Ultrasound/Phonophoresis Yes Iontophoresis Yes Orthotics/Bracing/Splinting Yes Vasopneumatic Compression Pump Yes Massage Yes Eval/Re-Eval Yes Frequency Times per week 2 Duration Number of Weeks 4-6 Addendums This patient is a candidate for social No or vocational rehab? Patient/Guardian verbally acknowledges Yes understanding of treatment program and consents to further treatment? Patient/Guardian verbally acknowledges Yes understanding of diagnosis, prognosis and goals for treatment? Eval Complexity PT Charges 21690 - Low Complexity Shoulder/Elbow Eval Shoulder Objective Measurements Elbow Objective Measurements PHYSICIAN CERTIFICATION: I certify the specified therapy services for Simone Brie Davila are required, authorized, and reviewed every 30 days.
== END 2023-09-21 11:00 | disposition home or self-care (01) ==
LOC: PT 09:52
PROVIDERS: Visit Provider Podiatrist
DX: M19.072 Primary osteoarthritis, left ankle and foot (principal); M79.672 Pain in left foot; M25.372 Other instability, left ankle; M84.375S Stress fracture, left foot, sequela; M77.52 Other enthesopathy of left foot and ankle; M67.88 Other specified disorders of synovium and tendon, other site; M77.42 Metatarsalgia, left foot
CPT/HCPCS: 97010; 97014; 97110; 97163; 97530; G0283

== ENCOUNTER 2023-09-21 13:56 | Outpatient (CLI) | payer MEDICAID, SELFPAY ==
[2023-09-21 14:01] LABS: Adenovirus F 40/41, stool Not Detected (NotDetected); Astrovirus Not Detected (NotDetected); Campylobacter Not Detected (NotDetected); Cryptosporidium Not Detected (NotDetected); Cyclospora Cayetanesis Not Detected (NotDetected); Entamoeba histolytica Not Detected (NotDetected); Enteroaggregative E coli Not Detected (NotDetected); Enteropathogenic E coli Not Detected (NotDetected); Enterotoxigenic E coli Not Detected (NotDetected); Giardia lamblia Not Detected (NotDetected); Norovirus Not Detected (NotDetected); Plesimonas Shigalloides, PCR Not Detected (NotDetected); Rotavirus A Not Detected (NotDetected); Salmonella, PCR Not Detected (NotDetected); Sapovirus Not Detected (NotDetected); Shiga-like toxin E coli Not Detected (NotDetected); Shigella Enterovasive E coli Not Detected (NotDetected); Vibrio Cholerae Not Detected (NotDetected); Vibrio, PCR Not Detected (NotDetected); Yersinia Entercolitica, PCR Not Detected (NotDetected)
[2023-09-21 21:35] LABS: Clostridium Difficile A/B, PCR Detected (NotDetected)
[2023-09-23 14:35] LABS: Anti-Centromere B Antibodies <0.2 AI (0.0-0.9); Anti-DNA (DS) Ab Qn <1 IU/mL (0-9); Anti-Jo-1 <0.2 AI (0.0-0.9); Anti-Smith Antibody <0.2 AI (0.0-0.9); Antichromatin Antibodies <0.2 AI (0.0-0.9); Antiscleroderma-70 Antibodies <0.2 AI (0.0-0.9); RNP Antibodies 0.4 AI (0.0-0.9); Sjogren's Anti-SS-A <0.2 AI (0.0-0.9); Sjogren's Anti-SS-B <0.2 AI (0.0-0.9)
== END 2023-09-21 23:59 | disposition home or self-care (01) ==
LOC: LAB 13:56
PROVIDERS: PCP Nurse Practitioner Family; Visit Provider Specialist
DX: R19.5 Other fecal abnormalities (principal); R11.2 Nausea with vomiting, unspecified; R19.7 Diarrhea, unspecified; R10.9 Unspecified abdominal pain; R51.9 Headache, unspecified; A04.72 Enterocolitis due to Clostridium difficile, not specified as recurrent; Z79.899 Other long term (current) drug therapy
CPT/HCPCS: 36415; 83036; 86225; 86235; 87506

== ENCOUNTER 2023-09-30 14:53 | Outpatient (CLI) | payer MEDICAID, SELFPAY ==
--- NOTE | 2023-09-30 14:53 | MR_ITS ---
FINAL REPORT TECHNIQUE: Multiplanar MR, without and with gadolinium enhancement CLINICAL HISTORY: Headache COMPARISON: None FINDINGS: Diffusion sequences show no signal abnormality to indicate acute infarct. No mass, hemorrhage or edema is seen. Ventricles are normal. Major vascular flow voids are intact. 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 Following contrast administration, no mass or abnormal enhancement is seen. IMPRESSION: Unremarkable MR evaluation the brain with contrast Reviewed, Interpreted and Dictated by Freddie Rodríguez MD Transcribed by Jennifer Salmeron Authenticated and . [facility]
[2023-09-30] MEDS: SODIUM CHLORIDE 0.9% 10ML FLUSH SYRINGE 10 ML IV (15:46)
[2023-09-30] MEDS: GADOTERIDOL INJ 20ML SYRINGE 12 ML IV (15:47)
== END 2023-09-30 23:59 | disposition home or self-care (01) ==
LOC: RAD 14:53
PROVIDERS: PCP Nurse Practitioner Family; Visit Provider Specialist
DX: R51.9 Headache, unspecified (principal)
CPT/HCPCS: 70553; A9576

== ENCOUNTER 2023-10-28 10:34 | Outpatient (CLI) | payer MEDICAID, SELFPAY ==
--- NOTE | 2023-10-28 10:40 | XR_ITS ---
FINAL REPORT CLINICAL HISTORY: lower back pain..NO TRAUMA FINDINGS: LUMBAR SPINE, 5 views FINDINGS: No fracture is identified. Disc spaces are well preserved. Alignment is normal . IMPRESSION: Unremarkable lumbar spine series. Authenticated and [facility]
[2023-10-28 11:31] LABS: Basophils # 0.1 K/mm3 (0-0.2); Basophils % 2.5 % (0.1-2.0); Eosinophils # 0.2 K/mm3 (0.0-0.4); Eosinophils % 3.5 % (0.1-12.0); Hematocrit 40.3 % (37.0-47.0); Lymphocytes # 1.5 K/mm3 (0.7-4.5); Lymphocytes % 32.8 % (10-50); Mean Corpuscular HGB Conc 34.8 g/dL (31.8-35.4); Mean Corpuscular Hemoglobin 32.7 pg (27.0-31.2); Mean Platelet Volume 8.6 fl (7.4-10.4); Monocytes # 0.4 K/mm3 (0.1-1.0); Monocytes % 8.6 % (1.7-9.3); Neutrophils # 2.4 K/mm3 (1.8-7.8); Neutrophils % 52.6 % (37.0-80.0); Platelet Count 167 K/mm3 (142-424); Red Blood Count 4.29 M/mm3 (4.20-5.40); Red Cell Distribution Width 13.2 % (11.5-17.5); White Blood Count 4.5 K/mm3 (4.8-10.8)
[2023-11-04 08:49] LABS: Miscellaneous Test SCANNED IMAGE
== END 2023-10-28 23:59 | disposition home or self-care (01) ==
LOC: RAD 10:37
PROVIDERS: Allergy & Immunology; Obstetrics & Gynecology; PCP Nurse Practitioner Family; Visit Provider Nurse Practitioner Family
DX: M54.50 Low back pain, unspecified (principal); Z79.899 Other long term (current) drug therapy; R10.9 Unspecified abdominal pain
CPT/HCPCS: 36415; 72110; 85025

== ENCOUNTER 2023-10-31 13:16 | Outpatient (CLI) | payer MEDICAID, SELFPAY ==
[2023-10-31 13:19] LABS: Adenovirus F 40/41, stool Not Detected (NotDetected); Astrovirus Not Detected (NotDetected); Campylobacter Not Detected (NotDetected); Cryptosporidium Not Detected (NotDetected); Cyclospora Cayetanesis Not Detected (NotDetected); Entamoeba histolytica Not Detected (NotDetected); Enteroaggregative E coli Not Detected (NotDetected); Enteropathogenic E coli Not Detected (NotDetected); Enterotoxigenic E coli Not Detected (NotDetected); Giardia lamblia Not Detected (NotDetected); Norovirus Not Detected (NotDetected); Plesimonas Shigalloides, PCR Not Detected (NotDetected); Rotavirus A Not Detected (NotDetected); Salmonella, PCR Not Detected (NotDetected); Sapovirus Not Detected (NotDetected); Shiga-like toxin E coli Not Detected (NotDetected); Shigella Enterovasive E coli Not Detected (NotDetected); Vibrio Cholerae Not Detected (NotDetected); Vibrio, PCR Not Detected (NotDetected); Yersinia Entercolitica, PCR Not Detected (NotDetected)
[2023-10-31 17:53] LABS: Clostridium Difficile A/B, PCR Detected (NotDetected)
== END 2023-10-31 23:59 | disposition home or self-care (01) ==
LOC: LAB 13:16
PROVIDERS: PCP Nurse Practitioner Family; Visit Provider Nurse Practitioner Family
DX: R19.7 Diarrhea, unspecified (principal)
CPT/HCPCS: 87506

== ENCOUNTER 2023-11-01 13:21 | Emergency (ER) | payer MEDICAID, SELFPAY ==
[2023-11-01 13:22] VITALS: BP 102/71; PULSE 144; RESP 15; TEMP 36.6; O2SAT 98; BMI 26.3
[2023-11-01 13:33] VITALS: BP 102/71; PULSE 89; O2SAT 100
--- NOTE | 2023-11-01 13:59 | CT_ITS ---
FINAL REPORT TECHNIQUE: Axial CT images of the abdomen and pelvis were obtained after the injection of IV contrast. This study was performed with techniques to keep radiation doses as low as reasonably achievable (ALARA). Sagittal and coronal reconstruction was performed. Individualized dose reduction techniques using automated exposure control or adjustment of mA and/or kV according to the patient's size were employed. CLINICAL HISTORY: Generalized abdominal pain, nausea, vomiting, diarrhea COMPARISON: 05/26/2023 FINDINGS: Abdomen: No acute density is seen within the lung bases. Status post cholecystectomy. Solid abdominal organs are unremarkable. No bowel obstruction is present. There is no free air. No fluid collection is seen. Stable small umbilical hernia containing fat. There is no adenopathy. Pelvis: The appendix is nonvisualized. Status post hysterectomy. No bowel wall thickening is present. There is no free fluid. No pelvic mass is seen. IMPRESSION: No bowel obstruction or inflammatory changes. Nonvisualized appendix. Reviewed, Interpreted and Dictated by Freddie Rodríguez MD Transcribed by Romelia Rodríguez Authenticated and [facility]
--- NOTE | 2023-11-01 14:06 | ED_ITS ---
Discharge Plan Disposition Patient Disposition: Home, Self-Care Condition: Good Prescriptions Prescriptions: New vancomycin 125 mg capsule 125 mg PO Q6H 10 Days Qty: 40 0RF No Action omeprazole 20 mg capsule,delayed release(DR/EC) 40 mg PO DAILY Qty: 30 2RF polyethylene glycol 3350 [Miralax] 17 gram/dose powder 17 g PO DAILY MDD 17 g Qty: 510 2RF Rx Instructions: Do not take laxative with use of miralax or generic equivalent. Titrate to stool consistency as reviewed. Increase water intake. ascorbic acid (vitamin C) 1,000 mg tablet 1 g PO DAILY Patient Comments: TAKE ONE TABLET BY MOUTH EVERY DAY amitriptyline 25 mg tablet 25 mg PO DAILY Qty: 30 2RF estradiol 1 mg tablet 1 mg PO DAILY ibuprofen 800 mg tablet 800 mg PO Q8H PRN (Reason: Pain) Orilissa 150 mg tablet 150 mg PO DAILY Qty: 30 11RF fidaxomicin 200 mg tablet 200 mg PO BID 10 Days Qty: 20 0RF Referrals Follow up/Referrals: Nilda Phipps APRN [Primary Care Provider] - See instructions Activity Restrictions/Add. Instructions Additional Instructions/Restrictions: You were evaluated in the ER. You are appropriate for discharge at this time. Follow-up with your primary care physician as soon as possible for reevaluation. You have been prescribed oral vancomycin. Take this as directed, do not skip doses, do not stop taking it early UNLESS the fidoxamicin becomes available. If you are able to get the fidoxomicin, then stop taking the vancomycin and start the fidoxamicin and take it fully as directed. Talk about this with your primary care physician as well. Also call your GI team and make an appointment for follow-up with them. Drink plenty of fluids. Return to the ER with new, worsening, or otherwise concerning symptoms. Clinical Impressions Clinical Impression: Abdominal pain, C. difficile diarrhea Instructions Patient Instructions: DI for Acute Abdominal Pain Discharge ED Provider: Jocelyn Castillo General Adult HPI <Jocelyn Castillo DO - Last Filed: 11/01/23 15:58> General Chief complaint: Abdominal Pain Stated complaint: abd pain, vomiting Time Seen by Provider: 11/01/23 13:38 Mode of Arrival: Ambulatory Source of Information: Patient Limitations: No Limitations Description of Symptoms (Recalled from ER Triage Doc. by RN): c/o upper and lower abdomen pain with vomiting for one year, pt reports that she has been having this problem for a year and seen multiple doctors and hospitals, the last visit she was told she had c-diff, which she thinks she has had it for the past year. PT states the mediicne she is suppose to get is not working and the next med she is getting put on has some issues with the pharmacy, pt is tearful and stating that she has to get this fixed she cant do this anymore she has kids she needs to take care of. History of Present Illness HPI narrative: This patient is a 33-year-old female with a history of chronic abdominal pain, complex abdominal surgical history including laparoscopies for endometriosis, separate laparoscopic right oophorectomy, left nephrectomy, hysterectomy, intra- abdominal/pelvic abscess development necessitating laparoscopic drainage after colonoscopy, ovarian cysts, and reported recent history of C. difficile presenting to the emergency department for evaluation with concern for 1.5 years of abdominal pain, nausea, and vomiting. She states that she has been seen multiple times by multiple physicians and at multiple hospitals and she has been begging for help, but no one has been able to improve her symptoms. She notes that she tested positive for C. difficile and was put on a course of cefdinir. Advised we do not usually use cefdinir to treat C. difficile, but she is pretty sure that is what it was. She notes her insurance would not cover the initial medication that her primary care provider wanted to put her on. She states she completed this 3 weeks ago but has still been having severe abdominal pain, has been vomiting at least once every day, and has had frequent urination. She notes concern because she has a cyst on her kidney. She also notes that she has intermittent diarrhea and constipation. She had loose watery stool this morning, but she has not had a bowel movement since and she does not feel like she would be able to provide a stool sample right now. She is tearful and states she needs to be admitted because she is unable to take care of her children at home. Related Data Home Medications Medication Instructions Recorded Confirmed ascorbic acid (vitamin C) 1,000 mg 1 g PO DAILY 08/31/23 10/31/23 tablet estradiol 1 mg tablet 1 mg PO DAILY 10/31/23 ibuprofen 800 mg tablet 800 mg PO Q8H PRN Pain 10/31/23 Previous Rx's Medication Instructions Recorded polyethylene glycol 3350 17 17 g PO DAILY constipation #510 04/28/23 gram/dose oral powder (Miralax) grams elagolix 150 mg tablet (Orilissa) 150 mg PO DAILY #30 tabs 05/17/23 omeprazole 20 mg capsule,delayed 40 mg (2 x 20 mg) PO DAILY GERD 09/28/23 release #30 caps amitriptyline 25 mg tablet 25 mg PO DAILY #30 tabs 10/04/23 fidaxomicin 200 mg tablet 200 mg PO BID 10 days #20 tabs 11/01/23 vancomycin 125 mg capsule 125 mg PO Q6H 10 days #40 caps 11/01/23 Allergies Allergy/AdvReac Type Severity Reaction Status Date / Time latex Allergy Intermediate Hives Verified 10/31/23 10:22 PFS <Jocelyn Castillo DO - Last Filed: 11/01/23 15:58> PFS Disclaimer: The information contained in this section may have been updated after the patient was seen, as this information can be updated by other users. Medical History Cyst of right kidney Hoarseness Metallic taste Dysphagia Thyroid nodule Felix Escobar virus infection Abdominal pain Pelvic pain Hemoperitoneum Abscess of pelvis Torticollis Atypical chest pain Surgical History S/P removal of left ovary History of D&C History of cholecystectomy History of salpingectomy History of ovarian cystectomy History of right oophorectomy History of hysteroscopy Hx of colonoscopy Hx of laparoscopy S/P partial hysterectomy Family History Father Coronary artery disease Hypertension Social History Smoking Status: Former smoker tobacco type: cigarettes alcohol intake: former year quit: 2021 substance use type: other details: THC Pens current occupational status: unemployed Travel in the last 8 weeks: None household members: family housing: house marital status: number of children: 4 <Jocelyn Castillo DO - Last Filed: 11/01/23 15:58> ROS Obtained: Yes All systems reviewed & no additional complaints except as documented Physical Exam <Jocelyn Castillo DO - Last Filed: 11/01/23 15:58> General General appearance: alert and in no apparent distress Head Head exam: atraumatic and normocephalic Eye Eye exam: Present normal appearance, PERRL and EOMI ENT ENT exam: Present normal exam, normal oropharynx, mucous membranes moist and normal external ear exam Neck Neck exam: Present normal inspection, full ROM and trachea midline; Absent tenderness Chest Chest inspection: Present normal inspection and symmetric chest wall rise; Absent tenderness Respiratory Respiratory exam: Present normal lung sounds bilaterally; Absent respiratory distress, wheezes, stridor or accessory muscle use Cardiovascular Cardiovascular exam: Present normal rhythm and tachycardia Abdominal Exam Abdominal exam: Present soft; Absent distention, tenderness or guarding Extremities Exam Extremities exam: Present normal inspection, full ROM and normal capillary refill; Absent tenderness or edema Back Exam Back exam: Present normal inspection and full ROM; Absent tenderness Neurological Exam Neurological exam: Present alert, oriented X3, CN II-XII intact and normal gait; Absent motor sensory deficit Psychiatric Psychiatric exam: Present normal affect and normal mood Skin Skin exam: Present warm and dry Medical Decision Making <Jocelyn Castillo, - Last Filed: 11/01/23 15:58> Medical Records Medical records reviewed: Yes I reviewed the patient's medical records. Dirk Inquiry Pt receiving controlled substance: No Vital Signs: 11/01/23 13:22 11/01/23 13:33 11/01/23 15:00 Temperature 98 F Temperature Source Oral Pulse Rate 89 92 H Pulse Rate [Left Radial] 144 H Respiratory Rate 15 Blood Pressure 102/71 L 119/78 Blood Pressure [Right Arm] 102/71 L Blood Pressure Mean [Right Arm] 81 Blood Pressure Source [Right Arm] Automatic Cuff Blood Pressure Position [Right Arm] Sitting 02 Sat by Pulse Oximetry 98 100 100 Oxygen Delivery Method Room Air Lab Data Lab results reviewed: Yes I reviewed the patient's lab results. Lab Results 11/01/23 13:32: WBC 5.3, RBC 4.62, Hgb 14.5, Hct 42.6, MCV 92.2, MCH 31.4 H, MCHC 34.1, RDW 13.3, Plt Count 188, MPV 8.8, Neut % (Auto) 59.2, Lymph % (Auto) 31.9, [place] % (Auto) 3.7, Eos % (Auto) 4.5, Baso % (Auto) 0.7, Neut # (Auto) 3.1, Lymph # (Auto) 1.7, [place] # (Auto) 0.2, Eos # (Auto) 0.2, Baso # (Auto) 0.0, Sodium 140, Potassium 4.2, Chloride 106, Carbon Dioxide 28, Anion Gap 10.2, BUN 9, Creatinine 0.80, Estimated Creat Clear 104, Estimated GFR 83, Est GFR ( Amer) 101, Glucose 105 H, Calcium 10.0, Total Bilirubin 0.5, AST 40 H, ALT 37, Alkaline Phosphatase 68, Total Protein 7.7, Albumin 4.7, Globulin 3.0, Albumin/Globulin Ratio 1.6, Lipase 50, Serum HCG, Qual Negative 11/01/23 13:59: VBG pH 7.41, VBG pCO2 39.8, VBG pO2 67.1 H, VBG HCO3 24.7, VBG Total CO2 25.9, VBG O2 Saturation 93.9 H, VBG Base Excess 0.1, VBG Lactic Acid 1.1 11/01/23 14:10: Urine Color Yellow, Urine Appearance Clear, Urine pH 7.0, Ur Specific [place] 1.020, Urine Protein Negative, Urine Glucose (UA) Negative, Urine Ketones Negative, Urine Blood Negative, Urine Nitrate Negative, Urine Bilirubin Negative, Urine Urobilinogen 0.2, Ur Leukocyte Esterase Negative, Urine RBC None, Urine WBC None, Ur Squamous Epith Cells Occasional, Urine Bacteria Trace 11/01/23 13:32 11/01/23 13:32 Orders (Tests/Meds): ED MEDICATIONS Discontinued Medications Generic Name Dose Route Start Last Admin Trade Name Wally PRN Reason Stop Dose Admin Acetaminophen 1,000 mg 11/01/23 14:01 11/01/23 14:21 Acetaminophen 500mg Tab PO 11/01/23 14:02 1,000 mg ONCE ONE Administration Lactated Ringer's 1,000 mls @ 999 mls/hr 11/01/23 14:01 11/01/23 14:22 Lactated Ringer's 1000 Ml Bag IV 11/01/23 15:01 999 mls/hr .Q1H1M ONE Administration Iopamidol 75 ml 11/01/23 15:11 11/01/23 15:11 Iopamidol-370 (76%);100ml Bottle IV 11/01/23 15:12 75 ml ONCE ONE Administration Ketorolac Tromethamine 15 mg 11/01/23 14:01 11/01/23 14:22 Ketorolac 30mg/Ml Vial IV 11/01/23 14:02 15 mg ONCE ONE Administration Metoclopramide HCl 5 mg 11/01/23 14:01 11/01/23 14:21 Metoclopramide Hcl 10mg/2ml Vial IVP 11/01/23 14:02 5 mg ONCE ONE Administration Sodium Chloride 10 ml 11/01/23 15:11 11/01/23 15:11 Sodium Chloride 0.9% 10ml Syr (Rad Only) IV 11/01/23 15:12 10 ml ONCE ONE Administration ORDERS Category Date Time Status CT abdomen pelvis w con Stat Cat Scan 11/01/23 13:59 Completed CBC w/Auto Diff [Complete Blood Count Auto Diff] Stat Lab 11/01/23 13:32 Completed CMP [Comprehensive Metabolic Panel] Stat Lab 11/01/23 13:32 Completed Diarrhea 23 Panel, PCR Stat Lab 11/01/23 14:00 Ordered Lipase Stat Lab 11/01/23 13:32 Completed Serum [HCG Qualitative, Serum] Stat Lab 11/01/23 13:32 Completed UA [Urinalysis and Microscopic] Stat Lab 11/01/23 14:10 Completed VBG [Venous Blood Gas] Stat RT 11/01/23 13:59 Completed Medical Decision Narrative: In summary, this patient is a 33-year-old female presenting to the Emergency Department for evaluation of acute on chronic abdominal pain, nausea, vomiting, and irregular bowel movements. Differential diagnoses considered include but are not limited to endometriosis, functional abdominal pain, C. difficile colitis, IBS, IBD, recurrence of intra-abdominal abscess. Ruling out the most morbid conditions drove assessment. I reviewed patient's past medical records and noted previous evaluations for abdominal pain in the past with most recent evaluation here back in July of this year. Workup that time was reassuring, and patient was ultimately discharged home. I also reviewed outpatient records and noted dx of C diff in september with prescription for vancomycin, not cefdinir. On exam, the patient is anxious appearing and tearful. She is mildly tachycardic, but otherwise vitals are reassuring on cardiac telemetry. Abdominal exam is benign with no rebound or guarding. Workup included CBC, CMP, lipase, VBG, lactic acid, diarrhea panel, urinalysis, and CT abdomen pelvis with IV contrast. Patient states she is unable to provide a stool sample. Patient was given a bolus of IV fluids as well as IV Toradol, oral Tylenol, and IV Reglan for symptomatic improvement. Labs obtained demonstrate no acutely concerning abnormalities with no significant leukocytosis or electrolyte derangements. Urine not concerning for infection. On reassessment, patient is resting comfortably with normal vital signs on cardiac telemetry. Abdominal exam remains benign. Patient care signed out to the oncoming provider, Dr. Lozoya, pending CT. <Aleksander Lozoya MD - Last Filed: 11/01/23 17:12> Vital Signs: 11/01/23 13:22 11/01/23 13:33 11/01/23 15:00 Temperature 98 F Temperature Source Oral Pulse Rate 89 92 H Pulse Rate [Left Radial] 144 H Respiratory Rate 15 Blood Pressure 102/71 L 119/78 Blood Pressure [Right Arm] 102/71 L Blood Pressure Mean [Right Arm] 81 Blood Pressure Source [Right Arm] Automatic Cuff Blood Pressure Position [Right Arm] Sitting 02 Sat by Pulse Oximetry 98 100 100 Oxygen Delivery Method Room Air Lab Data Lab Results 11/01/23 13:32: WBC 5.3, RBC 4.62, Hgb 14.5, Hct 42.6, MCV 92.2, MCH 31.4 H, MCHC 34.1, RDW 13.3, Plt Count 188, MPV 8.8, Neut % (Auto) 59.2, Lymph % (Auto) 31.9, [place] % (Auto) 3.7, Eos % (Auto) 4.5, Baso % (Auto) 0.7, Neut # (Auto) 3.1, Lymph # (Auto) 1.7, [place] # (Auto) 0.2, Eos # (Auto) 0.2, Baso # (Auto) 0.0, Sodium 140, Potassium 4.2, Chloride 106, Carbon Dioxide 28, Anion Gap 10.2, BUN 9, Creatinine 0.80, Estimated Creat Clear 104, Estimated GFR 83, Est GFR ( Amer) 101, Glucose 105 H, Calcium 10.0, Total Bilirubin 0.5, AST 40 H, ALT 37, Alkaline Phosphatase 68, Total Protein 7.7, Albumin 4.7, Globulin 3.0, Albumin/Globulin Ratio 1.6, Lipase 50, Serum HCG, Qual Negative 11/01/23 13:59: VBG pH 7.41, VBG pCO2 39.8, VBG pO2 67.1 H, VBG HCO3 24.7, VBG Total CO2 25.9, VBG O2 Saturation 93.9 H, VBG Base Excess 0.1, VBG Lactic Acid 1.1 11/01/23 14:10: Urine Color Yellow, Urine Appearance Clear, Urine pH 7.0, Ur Specific [place] 1.020, Urine Protein Negative, Urine Glucose (UA) Negative, Urine Ketones Negative, Urine Blood Negative, Urine Nitrate Negative, Urine Bilirubin Negative, Urine Urobilinogen 0.2, Ur Leukocyte Esterase Negative, Urine RBC None, Urine WBC None, Ur Squamous Epith Cells Occasional, Urine Bacteria Trace Orders (Tests/Meds): ED MEDICATIONS Discontinued Medications Generic Name Dose Route Start Last Admin Trade Name Freq PRN Reason Stop Dose Admin Acetaminophen 1,000 mg 11/01/23 14:01 11/01/23 14:21 Acetaminophen 500mg Tab PO 11/01/23 14:02 1,000 mg ONCE ONE Administration Lactated Ringer's 1,000 mls @ 999 mls/hr 11/01/23 14:01 11/01/23 14:22 Lactated Ringer's 1000 Ml Bag IV 11/01/23 15:01 999 mls/hr .Q1H1M ONE Administration Iopamidol 75 ml 11/01/23 15:11 11/01/23 15:11 Iopamidol-370 (76%);100ml Bottle IV 11/01/23 15:12 75 ml ONCE ONE Administration Ketorolac Tromethamine 15 mg 11/01/23 14:01 11/01/23 14:22 Ketorolac 30mg/Ml Vial IV 11/01/23 14:02 15 mg ONCE ONE Administration Metoclopramide HCl 5 mg 11/01/23 14:01 11/01/23 14:21 Metoclopramide Hcl 10mg/2ml Vial IVP 11/01/23 14:02 5 mg ONCE ONE Administration Sodium Chloride 10 ml 11/01/23 15:11 11/01/23 15:11 Sodium Chloride 0.9% 10ml Syr (Rad Only) IV 11/01/23 15:12 10 ml ONCE ONE Administration ORDERS Category Date Time Status CT abdomen pelvis w con Stat Cat Scan 11/01/23 13:59 Completed CBC w/Auto Diff [Complete Blood Count Auto Diff] Stat Lab 11/01/23 13:32 Completed CMP [Comprehensive Metabolic Panel] Stat Lab 11/01/23 13:32 Completed Diarrhea 23 Panel, PCR Stat Lab 11/01/23 14:00 Ordered Lipase Stat Lab 11/01/23 13:32 Completed Serum [HCG Qualitative, Serum] Stat Lab 11/01/23 13:32 Completed UA [Urinalysis and Microscopic] Stat Lab 11/01/23 14:10 Completed VBG [Venous Blood Gas] Stat RT 11/01/23 13:59 Completed Medical Decision Narrative: In summary, this patient is a 33-year-old female presenting to the Emergency Department for evaluation of acute on chronic abdominal pain, nausea, vomiting, and irregular bowel movements. Differential diagnoses considered include but are not limited to endometriosis, functional abdominal pain, C. difficile colitis, IBS, IBD, recurrence of intra-abdominal abscess. Ruling out the most morbid conditions drove assessment. I reviewed patient's past medical records and noted previous evaluations for abdominal pain in the past with most recent evaluation here back in July of this year. Workup that time was reassuring, and patient was ultimately discharged home. I also reviewed outpatient records and noted dx of C diff in september with prescription for vancomycin, not cefdinir. On exam, the patient is anxious appearing and tearful. She is mildly tachycardic, but otherwise vitals are reassuring on cardiac telemetry. Abdominal exam is benign with no rebound or guarding. Workup included CBC, CMP, lipase, VBG, lactic acid, diarrhea panel, urinalysis, and CT abdomen pelvis with IV contrast. Patient states she is unable to provide a stool sample. Patient was given a bolus of IV fluids as well as IV Toradol, oral Tylenol, and IV Reglan for symptomatic improvement. Labs obtained demonstrate no acutely concerning abnormalities with no significant leukocytosis or electrolyte derangements. Urine not concerning for infection. On reassessment, patient is resting comfortably with normal vital signs on cardiac telemetry. Abdominal exam remains benign. Patient care signed out to the oncoming provider, Dr. Lozoya, pending CT. Lozoya: Upon my assumption of care patient is stable and resting comfortably. CT abdomen pelvis personally interpreted does not demonstrate any acute intra- abdominal pathology. See radiology read for final interpretation. Patient was not able to provide a stool sample in the ER which is reassuring against fulminant C. difficile infection, however review of records from yesterday demonstrates patient has positive C. difficile toxin from stool sample provided on 10/30. 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 I suspect based on review of records that this antibiotic is fidoxamicin. Given patient does have active toxin in her stool, she should be treated so I prescribed oral vancomycin which should treat her infection. I am giving her this prescription so that she has something to take to manage the infection until hopefully the prior authorization for the other antibiotic is approved. I discussed this at length with the patient and gave her explicit instructions on how to take this antibiotic as well as when to switch to the other antibiotic if it becomes available. Also gave her explicit instructions to follow closely with her primary care physician for management of her antibiotics in case the other 1 becomes available. Also encouraged her to follow-up with GI. Patient was given instructions on symptomatic management, follow up instructions, and return precautions for the emergency department. Patient indicated understanding and was discharged in stable condition. Critical Care <Jocelyn Castillo, DO - Last Filed: 11/01/23 15:58> Critical Care Time Critical Care Time: No
[2023-11-01 14:12] LABS: Basophils % 0.7 % (0.1-2.0); Eosinophils # 0.2 K/mm3 (0.0-0.4); Eosinophils % 4.5 % (0.1-12.0); Hematocrit 42.6 % (37.0-47.0); Hemoglobin 14.5 g/dL (12.2-16.2); Lymphocytes # 1.7 K/mm3 (0.7-4.5); Lymphocytes % 31.9 % (10-50); Mean Corpuscular HGB Conc 34.1 g/dL (31.8-35.4); Mean Corpuscular Hemoglobin 31.4 pg (27.0-31.2); Mean Corpuscular Volume 92.2 fl (81-99); Mean Platelet Volume 8.8 fl (7.4-10.4); Monocytes # 0.2 K/mm3 (0.1-1.0); Monocytes % 3.7 % (1.7-9.3); Neutrophils # 3.1 K/mm3 (1.8-7.8); Neutrophils % 59.2 % (37.0-80.0); Platelet Count 188 K/mm3 (142-424); Red Blood Count 4.62 M/mm3 (4.20-5.40); Red Cell Distribution Width 13.3 % (11.5-17.5); White Blood Count 5.3 K/mm3 (4.8-10.8)
[2023-11-01 14:15] LABS: Microscopic, Urine URINE MICROSCOPIC (MICROSCOPIC)
[2023-11-01 14:18] LABS: Alanine Aminotransferase 37 U/L (12-78); Albumin Level 4.7 g/dl (3.5-5.0); Albumin/Globulin Ratio 1.6 (1.1-1.8); Alkaline Phosphatase 68 U/L (38-126); Anion Gap 10.2 mEq/L (5-15); Aspartate Amino Transferase 40 U/L (14-36); Bilirubin,Total 0.5 mg/dl (0.2-1.3); Blood Urea Nitrogen 9 mg/dl (7-17); Carbon Dioxide 28 mmol/L (22.0-30.0); Chloride 106 mmol/L (98-107); Creatinine Clearance Estimated 104 mL/min (50-200); Estimated Glomerular Filt Rate 83 ml/min (>60); GFR (African American) 101 ML/MIN (>60); Glucose 105 mg/dl (74-100); Lipase 50 U/L (23-300); Potassium 4.2 mmoL/L (3.5-5.1); Sodium 140 mmol/L (136-145); Total Protein,Serum 7.7 g/dl (6.3-8.2)
[2023-11-01] MEDS: ACETAMINOPHEN 500MG TAB 1000 MG PO (14:21)
[2023-11-01] MEDS: METOCLOPRAMIDE HCL 10MG/2ML VIAL 5 MG IVP (14:21)
[2023-11-01 14:22] LABS: Lactate Venous 1.1 mmol/L (0.4-2.0); VBG Base Excess 0.1 mmol/L (-2.4-2.3); VBG HCO3 24.7 mmol/L (23-30); VBG Oxygen Saturation 93.9 % (50-70); VBG PCO2 39.8 mmol/L (35-51); VBG PH 7.41 mmol/L (7.31-7.41); VBG PO2 67.1 mmol/L (28-40); VBG Total CO2 25.9 mmol/L (23-27)
[2023-11-01] MEDS: LACTATED RINGERS 1000ML 1,000 ML 999 ML IV (14:22)
[2023-11-01] MEDS: KETOROLAC 30MG/ML VIAL 15 MG IV (14:22)
[2023-11-01 14:29] LABS: Appearance,Urine CLEAR (Clear); Bilirubin,Urine Negative (Negative); Blood, Urine Negative (Negative); Color,Urine YELLOW (Yellow); Glucose,Urine (UA) Negative (Negative); Ketones,Urine Negative (Negative); Leukocyte Esterase,Urine Negative (Negative); Nitrate,Urine Negative (Negative); Protein,Urine Negative (Negative); Urobilinogen,Urine 0.2 EU/dl (0.2)
[2023-11-01 14:32] LABS: HCG Qualitative, Serum Negative (Negative)
[2023-11-01 14:59] LABS: Bacteria,Urine Trace /lpf; Squamous Epithelial Cell,Urine Occasional #/hpf (0-5)
[2023-11-01 15:00] VITALS: BP 119/78; PULSE 92; O2SAT 100
[2023-11-01] MEDS: IOPAMIDOL-370 (76%);100ML BOTTLE 75 ML IV (15:11)
[2023-11-01] MEDS: SODIUM CHLORIDE 0.9% 10ML SYR (RAD ONLY) 10 ML IV (15:11)
[2023-11-01 17:20] VITALS: BP 138/76; PULSE 80; RESP 18; TEMP 36.7; O2SAT 98
== END 2023-11-01 17:21 | disposition home or self-care (01) ==
PROVIDERS: Emergency Provider Emergency Medicine; PCP Nurse Practitioner Family
DX: R10.9 Unspecified abdominal pain (principal); G89.29 Other chronic pain; A04.72 Enterocolitis due to Clostridium difficile, not specified as recurrent; R11.2 Nausea with vomiting, unspecified
CPT/HCPCS: 74177; 80053; 81001; 82803; 83690; 84703; 85025; 96361; 96374; 96375; 99284; J1885; J2765; J7120; Q9967

== ENCOUNTER 2023-11-14 13:05 | Outpatient (CLI) | payer MEDICAID, SELFPAY | END 2023-11-14 23:59 | disposition home or self-care (01) | LOC: LAB.DROPOF 13:06 | PROVIDERS: PCP Nurse Practitioner Family; Visit Provider Nurse Practitioner Family | DX: R10.9 Unspecified abdominal pain (principal); R35.0 Frequency of micturition; A04.72 Enterocolitis due to Clostridium difficile, not specified as recurrent | CPT/HCPCS: 87086; 87493 ==

== ENCOUNTER 2023-12-15 10:29 | Day surgery (SDC) | payer MEDICAID, SELFPAY ==
[2023-11-28 11:32] VITALS: BMI 25.9
[2023-12-14 12:01] VITALS: BMI 25.9
[2023-12-15 11:02] VITALS: BP 92/61; PULSE 76; RESP 16; TEMP 36.9; O2SAT 100
[2023-12-15] MEDS: LACTATED RINGERS 1000ML 1,000 ML 25 ML IV (11:07)
[2023-12-15 11:42] VITALS: O2SAT 100
--- NOTE | 2023-12-15 11:52 | P.PNANES_ITS ---
[facility] Disclaimer: The information contained in this section may have been updated after the patient was seen, as this information can be updated by other users. Medical History Dry mouth Cyst of right kidney Hoarseness Metallic taste Dysphagia Thyroid nodule Felix Escobar virus infection Abdominal pain Pelvic pain Hemoperitoneum Abscess of pelvis Torticollis Atypical chest pain Surgical History History of esophagogastroduodenoscopy (EGD) S/P removal of left ovary History of D&C History of cholecystectomy History of salpingectomy History of ovarian cystectomy History of right oophorectomy History of hysteroscopy Hx of colonoscopy Hx of laparoscopy S/P partial hysterectomy Family History Father Coronary artery disease Hypertension Social History Smoking Status: Former smoker tobacco type: cigarettes alcohol intake: never substance use type: other details: THC Pens current occupational status: unemployed Travel in the last 8 weeks: None household members: family housing: house marital status: number of children: 4 caffeine: No [facility] Anesthesia Checklist Patient Identification Patient Identification: Arm Band Structural Data Admitted From: Home Planned Operative Procedure/s: colonoscopy Consent for Planned Operative Procedure(s) Verified: Yes Verified Documents: Surgical Consent NPO Status Verified Time NPO: 00:00 Additional verifications Anesthesia Reactions: No Hx Blood Transfusions: No Blood Transfusion Reaction: No Airway Assessment Mallampati Score:: Class II C-Spine Mobility Assessed: Yes TMJ Mobility Assessed: Yes Dentition: Good Dentition Neurological Assessment Level of Consciousness: Awake, Alert and Appropriate Anesthesia Plan Anesthesia Risk discussed: Yes Anesthesia Plan: Verified ASA Class: II Anesthesia Type: MAC
--- NOTE | 2023-12-15 11:56 | [facility].SCOPE ---
Procedure: Date: 12/15/23 Patient Date of :: 1990 Procedure Performed:: Diagnostic colonoscopy Indications:: Change in bowel habits, chronic diarrhea, abdominal pain Performing Provider:: Harley Bianchi MD Referring Provider:: Nilda Phipps APRN Sedation:: Propofol Procedure:: After placing the patient in the left lateral decubitus position, the colonoscopy was gently inserted into the rectum and under direct visualization advanced to the cecum which was identified by transillumination in the right lower quadrant, identification of the ileocecal valve, appendiceal orifice, and cecal strap. Color, texture, mucosa, and anatomy of the colon were carefully examined with the scope. Findings:: Anal canal: normal Rectum: normal Sigmoid colon: normal without polyps or inflammatory changes Descending colon: normal without polyps or inflammatory changes Splenic flexure: normal Transverse colon: normal without polyps or inflammatory changes Hepatic flexure: normal Ascending colon: normal without polyps or inflammatory changes Cecum: normal Terminal ileum: Normal w/o evidence of inflammatory changes Impression: Normal colonoscopy & terminal ileum No evidence of ulcerative colitis or crohn's disease Recommendations:: Follow up examination in about TEN years or so, sooner if clinically indicated. Follow up with GI Clinic for treatment and management options. Complications:: None Estimated blood obtained (mL): 0 Colonoscopy Component Colonoscopy Component Was a colonoscopy performed during today's procedure?: Yes Recommended follow up colonoscopy of at least 10 years?: Yes
[2023-12-15 11:57] VITALS: BP 83/47; PULSE 75; RESP 18; TEMP 36.5; O2SAT 97
[2023-12-15 12:07] VITALS: BP 94/56; PULSE 59; RESP 18; O2SAT 98
[2023-12-15 12:17] VITALS: BP 94/67; PULSE 53; O2SAT 100
[2023-12-15 12:27] VITALS: BP 92/63; PULSE 52; RESP 18; O2SAT 100
== END 2023-12-15 12:27 | disposition home or self-care (01) ==
PROVIDERS: Internal Medicine Gastroenterology; PCP Nurse Practitioner Family; Visit Provider Nurse Practitioner
DX: R19.4 Change in bowel habit (principal); K52.9 Noninfective gastroenteritis and colitis, unspecified; R10.9 Unspecified abdominal pain
CPT/HCPCS: 45378; J2250; J7120

== ENCOUNTER 2023-12-27 08:59 | Outpatient (CLI) | payer MEDICAID, SELFPAY ==
--- NOTE | 2023-12-27 08:59 | CT_ITS ---
APPROVED REPORT [employer]: CLINICAL INDICATION Chest Pain TECHNIQUE Image Acquisition: A 128 slice MDCT scanner ([employer] Softfront[employer] View) was used for data acquisition. A noncontrast coronary calcium scan was performed. A CT attenuation threshold of 130 Hounsfield units (HU) was used for the detection of calcium in contiguous voxels of 1 sq mm in area to be counted as individual lesions. Bolus tracking in the ascending aorta with a threshold of 180 HU was performed. Immediately afterwards, ECG synchronized cardiac CT was then performed from the cardiac base to apex using retrospective gating with ECG tube current modulation. A total of 85 mL of Isovue 370 mg/mL contrast medium was administered at 5 mL/sec followed by a saline flush using a biphasic injection protocol. A tube voltage of 120 KVp was used. The patient received the following medications prior to the cardiac CT. 0.4 mg of sublingual nitroglycerin The average heart rate at the time of acquisition was 53 bpm and regular. Image Reconstruction Transaxial images were reconstructed at 0.67 mm slide thickness. Data was reviewed interactively on an advanced workstation capable of 2 and 3-dimensional displays in all conventional reconstruction formats, including multiplanar reformations, maximum intensity projections, curved multiplanar reformations, and volume rendered reconstructions. When applicable, selected routine images describing the relevant coronary anatomy and pathology were saved and sent to PACS. Complications None Technical Quality Overall image quality was good. Coronary artery opacification was adequate. Total DLP (Dose-Length Product) is 1361.6 mGy-cm. The reported value represents the total of one or more individual components during the CT acquisition of this date and at this time, and as such, the same value may appear in more than one CT report depending on the interpreting/reporting physicians. COMPARISON None FINDINGS CT Coronary Calcium Scoring LMA (Left Main Artery) = 0 LAD (Left Anterior Descending) = 0 LCX (Left Coronary Circumflex) = 0 RCA (Right Coronary Artery) = 0 Total Calcium Score = 0 using the AJ-130 method. The interpretation of the calcium heart score is based on the following continuum*: 0 = no calcified plaque detected (risk of coronary artery disease is very low ??? less than 5%) 1-10 = calcium detected in extremely minimal levels (risk of coronary diseases is still low ??? less than 10%) 11-100 = mild levels of plaque detected with certainty (mild or minimal narrowing of heart arteries is likely) 101-400 = definite,at least moderate levels of plaque detected (relatively high risk of a heart attack within 3-5 years) >401-999 = extensive levels of plaque detected (high risk of heart attack, high levels of vascular disease are present, high likelihood of at least one significant coronary narrowing) *The calcium heart score quantifies the burden of coronary calcification/plaque in the coronary arteries. The calcium heart score is not able to evaluate the presence or burden of non-calcified (i.e. soft) plaque. There is no identifiable calcification in the aortic valve, mitral annulus or mitral valve, pericardium, or myocardium. Coronary CT Angiography The coronary arterial system is right dominant. Quantitative Stenosis Grading: Left Main (LM): The left main originates normally from the left sinus of Valsalva. The LM trifurcates into the left anterior descending artery, ramus intermedius, and left circumflex artery. The LM is patent with no evidence of atherosclerosis. Left Anterior Descending (LAD) and Diagonal Branches: The LAD gives off 2 diagonal branch(es). The LAD and its branches are patent with no evidence of atherosclerosis. There is no evidence of LAD-myocardial bridge. Ramus-intermedius (RI): The RI is patent. Left Circumflex (LCX) and Obtuse Marginals (OM): The LCX gives off 1 Obtuse Marginal (OM) branch(es). The LCX and its branches are patent with no evidence of atherosclerosis. Right Coronary Artery (RCA): The RCA originates normally from the right sinus of Valsalva. The RCA gives off a posterior descending artery (PDA) and posterolateral (PL) branches. The RCA and its branches are patent with no evidence of atherosclerosis. Non-Coronary Cardiac Findings: Analysis of the left ventricular (LV) structure and function was performed after 3-D reconstruction of the LV from axial images, with user-corrected automatic contouring for assessment of LV volumes and user-defined reconstruction from oblique planes for measurement of 3-D cardiac structure and function. -The left ventricle systolic function is normal. -There is no left atrial appendage filling defect. Two right pulmonary veins and two left pulmonary veins drain normally into the left atrium. -No pericardial thickening or calcification. -Central and branch pulmonary arteries in the [id number] are unremarkable. -Thoracic aorta within the visualized thoracic aortic-branches in the [id number]-[id number] is unremarkable. Extracardiac Structures No significant extra-cardiac findings. Note, however, that this study is focused on the cardiac findings. IMPRESSION -Absence of coronary calcification with an Agatston score = 0 using the AJ-130 method. -No evidence of significant flow-limiting atherosclerosis of the coronary arteries. -No evidence of coronary anomalies or myocardial bridges. -CAD-RADS 0. Management recommendations per ACC/AHA guidelines*, as clinically appropriate. *Recommendations: CAD RADS 0: Reassurance. Consider non-atherosclerotic causes of chest pain. CAD RADS 1: Consider non-atherosclerotic causes of chest pain. Consider preventive therapy and risk factor modification. CAD RADS 2: Consider non-atherosclerotic causes of chest pain. Consider preventive therapy and risk factor modification, particularly for patients with nonobstructive plaque in multiple segments. CAD RADS 3: Consider further functional testing. Consider symptom-guided anti-ischemic and preventive pharmacotherapy as well as risk factor modification per published guideline statements. CAD RADS 4A: Consider further functional testing or invasive coronary angiography with revascularization per published guideline statements. Consider symptom-guided anti-ischemic and preventive pharmacotherapy as well as risk factor modification per published guideline statements. CAD RADS 4B: Invasive coronary angiography recommended with revascularization per published guideline statements. Consider symptom-guided anti-ischemic and preventive pharmacotherapy as well as risk factor modification per published guideline statements. CAD RADS 5: Consider invasive angiography and/or viability assessment with revascularization per published guideline statements. Consider symptom-guided anti-ischemic and preventive pharmacotherapy as well as risk factor modification per published guideline statements. CRITICAL RESULT None COMMUNICATION Per this written report The coronary and cardiac findings of this CCTA were reviewed, reported, and signed by Tommy Garcia MD ([employer]) Conclusion Electronically signed by : Chela Garcia MD 12/28/2023 14:05:09
[2023-12-27 09:20] VITALS: BP 98/59; PULSE 61; RESP 16; TEMP 36.6; O2SAT 100; BMI 25.6
[2023-12-27 09:42] LABS: Chloride 106 mmol/L (98-107); Sodium 139 mmol/L (136-145)
[2023-12-27 09:43] LABS: Urine Pregnancy, HCG Qual. Negative (Negative)
[2023-12-27 09:43] LABS: Potassium 3.9 mmoL/L (3.5-5.1)
[2023-12-27 09:45] LABS: Blood Urea Nitrogen 8 mg/dl (7-17); Creatinine Clearance Estimated 101 mL/min (50-200); Estimated Glomerular Filt Rate 83 ml/min (>60); GFR (African American) 101 ML/MIN (>60)
[2023-12-27 09:46] LABS: Anion Gap 8.9 mEq/L (5-15); Calcium 9.2 mg/dl (8.4-10.2); Carbon Dioxide 28 mmol/L (22.0-30.0); Glucose 91 mg/dl (74-100)
[2023-12-27 10:05] VITALS: BP 110/71; PULSE 65; RESP 16; O2SAT 100
[2023-12-27] MEDS: NITROGLYCERIN 0.4MG SL TABLET SL (10:06)
[2023-12-27 10:07] VITALS: BP 91/45; PULSE 65; RESP 18; O2SAT 100
[2023-12-27] MEDS: SODIUM CHLORIDE 0.9% 10ML SYR (RAD ONLY) 10 ML IV (10:08)
[2023-12-27] MEDS: IOPAMIDOL-370 (76%);100ML BOTTLE 85 ML IV (10:08)
[2023-12-27] MEDS: 0.9 % SODIUM CHLORIDE 50 ML VIAL IV (10:08)
[2023-12-27 10:11] VITALS: BP 82/48; PULSE 64; RESP 17; O2SAT 99
[2023-12-27 10:17] VITALS: BP 94/60; PULSE 71; RESP 18; O2SAT 99
[2023-12-27 10:28] VITALS: BP 108/52; PULSE 66; RESP 16; TEMP 36.6; O2SAT 100
== END 2023-12-27 10:30 | disposition home or self-care (01) ==
PROVIDERS: PCP Nurse Practitioner Family; Visit Provider Nurse Practitioner Family
DX: R06.02 Shortness of breath (principal); R07.89 Other chest pain; R94.31 Abnormal electrocardiogram [ECG] [EKG]; R53.83 Other fatigue
CPT/HCPCS: 75574; 80048; 81025; Q9967

== ENCOUNTER 2023-12-27 10:44 | Outpatient (CLI) | payer MEDICAID, SELFPAY | END 2023-12-27 23:59 | disposition home or self-care (01) | LOC: LAB 10:45 | PROVIDERS: PCP Nurse Practitioner Family; Visit Provider Nurse Practitioner Family | DX: R19.7 Diarrhea, unspecified (principal) | CPT/HCPCS: 87045; 87493 ==

== ENCOUNTER 2023-12-29 11:19 | Outpatient (CLI) | payer MEDICAID, SELFPAY ==
[2023-12-29 11:41] LABS: Basophils % 0.8 % (0.1-2.0); Eosinophils # 0.1 K/mm3 (0.0-0.4); Eosinophils % 2.8 % (0.1-12.0); Hematocrit 43.3 % (37.0-47.0); Hemoglobin 14.1 g/dL (12.2-16.2); Lymphocytes # 1.6 K/mm3 (0.7-4.5); Mean Corpuscular HGB Conc 32.5 g/dL (31.8-35.4); Mean Corpuscular Hemoglobin 31.2 pg (27.0-31.2); Mean Corpuscular Volume 95.9 fl (81-99); Mean Platelet Volume 9.3 fl (7.4-10.4); Monocytes # 0.3 K/mm3 (0.1-1.0); Monocytes % 5.1 % (1.7-9.3); Neutrophils % 59.3 % (37.0-80.0); Platelet Count 197 K/mm3 (142-424); Red Blood Count 4.52 M/mm3 (4.20-5.40); Red Cell Distribution Width 12.8 % (11.5-17.5); White Blood Count 5.1 K/mm3 (4.8-10.8)
[2023-12-29 12:36] LABS: Alanine Aminotransferase 25 U/L (12-78); Albumin Level 4.4 g/dl (3.5-5.0); Albumin/Globulin Ratio 1.6 (1.1-1.8); Alkaline Phosphatase 38 U/L (38-126); Anion Gap 9.1 mEq/L (5-15); Aspartate Amino Transferase 30 U/L (14-36); Bilirubin,Total 0.5 mg/dl (0.2-1.3); Blood Urea Nitrogen 8 mg/dl (7-17); Calcium 9.7 mg/dl (8.4-10.2); Carbon Dioxide 28 mmol/L (22.0-30.0); Chloride 105 mmol/L (98-107); Estimated Glomerular Filt Rate 83 ml/min (>60); GFR (African American) 101 ML/MIN (>60); Globulin 2.7 g/dL (1.3-3.2); Glucose 88 mg/dl (74-100); Potassium 4.1 mmoL/L (3.5-5.1); Sodium 138 mmol/L (136-145); Total Protein,Serum 7.1 g/dl (6.3-8.2)
[2023-12-30 15:12] LABS: Deamidated Gliadin Abs, IgA 4 units (0-19); Deamidated Gliadin Abs, IgG 2 units (0-19); Tissue Transglutaminase IgA Ab <2 U/mL (0-3); Tissue Transglutaminase IgG Ab 3 U/mL (0-5)
[2023-12-30 16:16] LABS: Endomysial IgA Antibody Negative (Negative)
[2024-01-01 10:09] LABS: Reticulin IgA Antibody Negative titer (Neg:<1:2.5)
== END 2023-12-29 23:59 | disposition home or self-care (01) ==
LOC: LAB 11:19
PROVIDERS: PCP Nurse Practitioner Family; Visit Provider Internal Medicine Gastroenterology
DX: R19.7 Diarrhea, unspecified (principal)
CPT/HCPCS: 36415; 80053; 83516; 85025; 86255; 86256

== ENCOUNTER 2024-01-02 09:02 | Outpatient (CLI) | payer MEDICAID, SELFPAY ==
[2024-01-02 09:06] LABS: Adenovirus F 40/41, stool Not Detected (NotDetected); Astrovirus Not Detected (NotDetected); Campylobacter Not Detected (NotDetected); Clostridium Difficile A/B, PCR Not Detected (NotDetected); Cryptosporidium Not Detected (NotDetected); Cyclospora Cayetanesis Not Detected (NotDetected); Entamoeba histolytica Not Detected (NotDetected); Enteroaggregative E coli Not Detected (NotDetected); Enteropathogenic E coli Not Detected (NotDetected); Enterotoxigenic E coli Not Detected (NotDetected); Giardia lamblia Not Detected (NotDetected); Norovirus Not Detected (NotDetected); Plesimonas Shigalloides, PCR Not Detected (NotDetected); Rotavirus A Not Detected (NotDetected); Salmonella, PCR Not Detected (NotDetected); Sapovirus Not Detected (NotDetected); Shiga-like toxin E coli Not Detected (NotDetected); Shigella Enterovasive E coli Not Detected (NotDetected); Vibrio Cholerae Not Detected (NotDetected); Vibrio, PCR Not Detected (NotDetected); Yersinia Entercolitica, PCR Not Detected (NotDetected)
[2024-01-04 17:37] LABS: Pancreatic Elastase, Fecal >800 (>200)
== END 2024-01-02 23:59 | disposition home or self-care (01) ==
LOC: LAB 09:02
PROVIDERS: PCP Nurse Practitioner Family; Visit Provider Internal Medicine Gastroenterology
DX: R19.7 Diarrhea, unspecified (principal)
CPT/HCPCS: 82656; 87506

== ENCOUNTER 2024-01-20 12:47 | Outpatient (CLI) | payer MEDICAID, SELFPAY ==
--- NOTE | 2024-01-20 12:47 | US_ITS ---
Ultrasound Sonograher: PROCEDURE: US TRANSVAGINAL CLINICAL INDICATION: righ adnexal fluid COMPARISON: CT CT ABDOMEN PELVIS W CON from 11/01/2023 FINDINGS: Transvaginal sonographic images of the pelvis were obtained. UTERUS: Surgically absent. The vaginal cuff is intact. LEFT OVARY: Surgically absent RIGHT OVARY: Surgically absent Both ovaries are surgically absent. There is no fluid in the cul-de-sac. IMPRESSION: 1. The uterus is surgically absent and the vaginal cuff appears intact and normal. 2. Both ovaries are surgically absent. 3. There is no fluid in the cul-de-sac. Dictated by: Faraz Castañeda MD 01/20/2024 13:39 Faraz Castañeda MD in OV 01/20/2024 13:39
--- NOTE | 2024-01-20 12:47 | US_ITS ---
FINAL REPORT CLINICAL HISTORY: renal cyst COMPARISON: None FINDINGS: RENAL ULTRASOUND Ultrasound images of the kidneys were obtained. The spleen has a normal appearance. The right kidney measures 10.3 cm in length. It is normal echogenicity. There is no hydronephrosis. No evidence of mass or cyst. The left kidney measures 9.0 cm in length. It is normal echogenicity. There is no hydronephrosis. No evidence of mass or cyst. IMPRESSION: Normal renal ultrasound. Reviewed, Interpreted and Dictated by Ravi Khan III, MD Transcribed by Tracy Tavares Authenticated and [facility]
== END 2024-01-20 23:59 | disposition home or self-care (01) ==
LOC: RAD 12:47
PROVIDERS: PCP Nurse Practitioner Family; Visit Provider Obstetrics & Gynecology
DX: N28.1 Cyst of kidney, acquired (principal); R19.8 Other specified symptoms and signs involving the digestive system and abdomen
CPT/HCPCS: 76770; 76830

== ENCOUNTER 2024-01-24 10:50 | Outpatient (CLI) | payer MEDICAID, SELFPAY | END 2024-01-24 23:59 | disposition home or self-care (01) | LOC: LAB.DROPOF 01-26 11:07 | PROVIDERS: PCP Student in an Organized Health Care Education/Training Program; Visit Provider Student in an Organized Health Care Education/Training Program | DX: J02.9 Acute pharyngitis, unspecified (principal) | CPT/HCPCS: 87070 ==

== ENCOUNTER → 2024-01-25 09:53 | Outpatient (REF) | payer MEDICAID, SELFPAY ==
[2024-01-25 09:57] LABS: Adenovirus F 40/41, stool Not Detected (NotDetected); Astrovirus Not Detected (NotDetected); Campylobacter Not Detected (NotDetected); Clostridium Difficile A/B, PCR Not Detected (NotDetected); Cryptosporidium Not Detected (NotDetected); Cyclospora Cayetanesis Not Detected (NotDetected); Entamoeba histolytica Not Detected (NotDetected); Enteroaggregative E coli Not Detected (NotDetected); Enteropathogenic E coli Not Detected (NotDetected); Enterotoxigenic E coli Not Detected (NotDetected); Giardia lamblia Not Detected (NotDetected); Norovirus Not Detected (NotDetected); Plesimonas Shigalloides, PCR Not Detected (NotDetected); Rotavirus A Not Detected (NotDetected); Salmonella, PCR Not Detected (NotDetected); Sapovirus Not Detected (NotDetected); Shiga-like toxin E coli Not Detected (NotDetected); Shigella Enterovasive E coli Not Detected (NotDetected); Vibrio Cholerae Not Detected (NotDetected); Vibrio, PCR Not Detected (NotDetected); Yersinia Entercolitica, PCR Not Detected (NotDetected)
== END ==
LOC: LAB.DROPOF 09:53
PROVIDERS: Visit Provider Student in an Organized Health Care Education/Training Program
DX: R19.7 Diarrhea, unspecified (principal)
CPT/HCPCS: 87506

== ENCOUNTER 2024-02-24 13:32 | Outpatient (CLI) | payer MEDICAID, SELFPAY ==
[2024-02-24 11:52] LABS: Magnesium 1.9 mg/dl (1.6-2.3)
[2024-02-24 12:21] LABS: Thyroid Stimulating Hormone 0.62 uIU/mL (0.465-4.68)
[2024-02-24 15:31] LABS: 25-OH Vitamin D, Total 74.7 ng/mL (30-100)
[2024-03-07 09:29] LABS: Antinuclear Antibodies (ANA) NEGATIVE; Triiodothyronine (T3) Free 3.3
== END 2024-02-24 23:59 | disposition home or self-care (01) ==
LOC: LAB.DROPOF 13:32
PROVIDERS: PCP Nurse Practitioner Family; Visit Provider Nurse Practitioner Family
DX: L74.4 Anhidrosis (principal)
CPT/HCPCS: 82306; 83036; 83735; 84443; 84481; 86038

== ENCOUNTER 2024-03-16 08:02 | Outpatient (CLI) | payer MEDICAID, SELFPAY ==
--- NOTE | 2024-03-16 08:03 | CT_ITS ---
FINAL REPORT CLINICAL HISTORY: Chest pain FINDINGS: Thin section axial CT images of the chest were obtained with contrast. 3D reformatted images were also obtained. This study was performed with techniques to keep radiation doses as low as reasonably achievable (ALARA). Individualized dose reduction techniques using automated exposure control or adjustment of mA and/or kV according to the patient's size were employed. There is no evidence of pulmonary embolism. There is no evidence of thoracic aortic aneurysm or dissection. There is no evidence of mediastinal or hilar mass or adenopathy. There is no evidence of pulmonary mass or nodule. No localized inflammatory process is seen within the lungs. Limited images of the upper abdomen demonstrate postoperative changes from cholecystectomy. IMPRESSION: No evidence of pulmonary embolism. No mass or localized inflammatory process. Reviewed, Interpreted and Dictated by Ravi Khan III, MD Transcribed by Romelia Rodríguez Authenticated and [facility]
[2024-03-16] MEDS: SODIUM CHLORIDE 0.9% 10ML SYR (RAD ONLY) 10 ML IV (08:42)
[2024-03-16] MEDS: 0.9 % SODIUM CHLORIDE 50 ML VIAL IV (08:42)
[2024-03-16] MEDS: IOPAMIDOL-370 (76%);100ML BOTTLE 85 ML IV (08:42)
== END 2024-03-16 23:59 | disposition home or self-care (01) ==
LOC: RAD 08:03
PROVIDERS: PCP Nurse Practitioner Family; Visit Provider Internal Medicine Pulmonary Disease
DX: R07.9 Chest pain, unspecified (principal); R94.31 Abnormal electrocardiogram [ECG] [EKG]; I37.1 Nonrheumatic pulmonary valve insufficiency; I51.7 Cardiomegaly
CPT/HCPCS: 71275; Q9967

== ENCOUNTER 2024-03-16 10:01 | Outpatient (CLI) | payer MEDICAID, SELFPAY ==
[2024-03-16 10:43] LABS: Basophils % 0.9 % (0.1-2.0); Eosinophils # 0.2 K/mm3 (0.0-0.4); Eosinophils % 3.8 % (0.1-12.0); Hematocrit 40.3 % (37.0-47.0); Hemoglobin 13.9 g/dL (12.2-16.2); Lymphocytes # 1.7 K/mm3 (0.7-4.5); Lymphocytes % 37.7 % (10-50); Mean Corpuscular HGB Conc 34.6 g/dL (31.8-35.4); Mean Corpuscular Volume 89.6 fl (81-99); Mean Platelet Volume 8.3 fl (7.4-10.4); Monocytes # 0.2 K/mm3 (0.1-1.0); Monocytes % 4.7 % (1.7-9.3); Neutrophils # 2.3 K/mm3 (1.8-7.8); Neutrophils % 52.9 % (37.0-80.0); Platelet Count 158 K/mm3 (142-424); Red Blood Count 4.49 M/mm3 (4.20-5.40); White Blood Count 4.4 K/mm3 (4.8-10.8)
[2024-03-16 10:51] LABS: Albumin Level 4.3 g/dl (3.5-5.0); Chloride 105 mmol/L (98-107); Potassium 4.1 mmoL/L (3.5-5.1); Sodium 138 mmol/L (136-145)
[2024-03-16 10:54] LABS: Alanine Aminotransferase 35 U/L (12-78); Albumin/Globulin Ratio 1.8 (1.1-1.8); Alkaline Phosphatase 57 U/L (38-126); Anion Gap 8.1 mEq/L (5-15); Aspartate Amino Transferase 38 U/L (14-36); Bilirubin,Total 0.4 mg/dl (0.2-1.3); Blood Urea Nitrogen 13 mg/dl (7-17); Carbon Dioxide 29 mmol/L (22.0-30.0); Estimated Glomerular Filt Rate 83 ml/min (>60); GFR (African American) 101 ML/MIN (>60); Globulin 2.4 g/dL (1.3-3.2); Total Protein,Serum 6.7 g/dl (6.3-8.2)
[2024-03-16 10:55] LABS: Calcium 9.3 mg/dl (8.4-10.2); Glucose 84 mg/dl (74-100)
== END 2024-03-16 23:59 | disposition home or self-care (01) ==
LOC: PREOP 10:02
PROVIDERS: PCP Nurse Practitioner Family; Visit Provider Otolaryngology
DX: Z01.812 Encounter for preprocedural laboratory examination (principal)
CPT/HCPCS: 80053; 85025

== ENCOUNTER 2024-03-21 08:27 | Day surgery (SDC) | payer MEDICAID, SELFPAY ==
[2024-03-16 10:15] VITALS: BMI 43.9
[2024-03-21] VITALS (10 sets, daily range): BP systolic 90–125; BP diastolic 62–81; PULSE 50–86; RESP 12–18; TEMP 36.2–36.8; O2SAT 98–100
--- NOTE | 2024-03-21 09:35 | EXP.ANES.CKL ---
[facility] Disclaimer: The information contained in this section may have been updated after the patient was seen, as this information can be updated by other users. Medical History Mild pulmonic regurgitation and RV dilation by prior echocardiogram Atypical chest pain Dyspnea on exertion Throat irritation Dry mouth Cyst of right kidney Hoarseness Metallic taste Dysphagia Thyroid nodule Felix Escobar virus infection Abdominal pain Pelvic pain Hemoperitoneum Abscess of pelvis Torticollis Surgical History History of hysterectomy History of esophagogastroduodenoscopy (EGD) S/P removal of left ovary History of D&C History of cholecystectomy History of salpingectomy History of ovarian cystectomy History of right oophorectomy History of hysteroscopy Hx of colonoscopy Hx of laparoscopy Family History Father Coronary artery disease Hypertension Social History (Updated 03/21/24 @ 09:22 by Anjali Garcia RN) Smoking Status: Former smoker tobacco type: cigarettes alcohol intake: never substance use type: other details: THC Pens current occupational status: unemployed Travel in the last 8 weeks: None household members: family housing: house marital status: number of children: 4 caffeine: No H Anesthesia Checklist Patient Identification Patient Identification: Verbal (Name & ) Structural Data Admitted From: Home Planned Operative Procedure/s: tonsillectomy Consent for Planned Operative Procedure(s) Verified: Yes NPO Status Verified Time NPO: 00:00 Additional verifications Anesthesia Reactions: No Hx Blood Transfusions: No Blood Transfusion Reaction: No Airway Assessment Mallampati Score:: Class II C-Spine Mobility Assessed: Yes TMJ Mobility Assessed: Yes Dentition: Good Dentition Neurological Assessment Level of Consciousness: Awake, Alert and Appropriate Anesthesia Plan Anesthesia Risk discussed: Yes Anesthesia Plan: Verified ASA Class: II Anesthesia Type: General
[2024-03-21] MEDS: LACTATED RINGERS 1000ML 1,000 ML 25 ML IV (09:45)
[2024-03-21] MEDS: BUPIVACAINE 0.5% W/EPI 1:200,000 30ML VIAL 30 ML IJ (09:54)
--- NOTE | 2024-03-21 10:15 | P.OP_ITS ---
Date of procedure: 03/21/24 Pre-op Diagnosis:: Chronic tonsillitis Post-op Diagnosis:: Chronic tonsillitis Procedure performed:: Tonsillectomy Surgeon:: Elias Samuels MD SERVICE CLERK:: Awa Mcnamara Anesthesia: GETA Estimated blood loss (mL): 0 Operative findings:: 3+ enlarged inflamed cryptic tonsils bilaterally Operative note:: The patient was brought to the operating room and after adequate general anesthesia the mouth was draped in the usual sterile fashion and a McIvor mouthgag placed. Tonsillectomy was then performed in the plane defined by the tonsil capsule and superior constrictor muscle and this was done with electrocautery. Hemostasis was established with suction Bovie. This was done bilaterally. Tonsillar fossa's infiltrated with half percent Marcaine with epinephrine and the procedure concluded. All counts correct and blood loss minimal and she was sent to recovery in stable condition Condition: stable Disposition: PACU Complications:: No complications
--- NOTE | 2024-03-21 10:22 | EXP.ANES.I ---
[facility] Anesthesia Record Part I Anesthesia Record I Intake, IV Amount: 500 Hydration: Adequate Estimated blood loss (mL): 0 Urine output (mL): 0 Blood Pressure: 115/64 SaO2: 98 Pulse Rate: 77 Airway Patency: Patent Respiratory Rate: 12 Temperature: 97.2 F Patient is:: Awake Stable to PACU at:: 10:18
[2024-03-21] MEDS: MORPHINE 2MG/ML SYRINGE 2 MG IV (10:47)
--- NOTE | 2024-03-26 09:44 | EXP.ANES.II ---
[facility] Anesthesia Record Part II Anesthesia Record Part II Discharge Time: 10:48 Destination: Surgical Day Care (OP Surgery) PACU nurse assessment reviewed?: Yes Patient Condition:: Good Anesthesia Complications:: None Swallowing reflex intact?: Yes Airway Patency: Patent Cyanosis?: No Blood Pressure: 111/62 SaO2: 100 Respiratory Rate: 16 Pulse Rate: 55 Temperature: 97.8 F Mental Status: Alert & Oriented Pain level:: 5 Nausea and/or vomitting:: None Intake, IV Amount: 0 Hydration: Adequate
[2024-03-26 09:45] VITALS: BP 111/62; PULSE 55; RESP 16; TEMP 36.6; O2SAT 100
== END 2024-03-21 11:37 | disposition home or self-care (01) ==
PROVIDERS: PCP Nurse Practitioner Family; Visit Provider Otolaryngology
PROC: (CPT 42826; principal; 2024-03-21 10:00)
DX: J35.01 Chronic tonsillitis (principal)
CPT/HCPCS: 42826; J3490; J1100; J2250; J2270; J2405; J3010; J7120

== ENCOUNTER 2024-03-23 18:15 | Emergency (ER) | payer MEDICAID, SELFPAY ==
[2024-03-23 18:17] VITALS: BP 125/81; PULSE 84; RESP 18; TEMP 36.5; O2SAT 100; BMI 25.6
--- NOTE | 2024-03-23 18:38 | PC.NURSE ---
DR CHARLES AT BEDSIDE
--- NOTE | 2024-03-23 18:43 | HMH.EDGENADL ---
Discharge Plan Disposition Patient Disposition: Home, Self-Care Prescriptions Prescriptions: New promethazine 25 mg tablet 25 mg PO TID PRN (Reason: nausea and vomiting) 5 Days Qty: 20 0RF No Action polyethylene glycol 3350 17 gram/dose powder 17 g PO DAILY PRN (Reason: Constipation) Patient Comments: DISSOLVE 17 GRAMS OF POWDER INTO 4 TO 8 OUNCES OF WATER, JUICE, SODA, COFFEE, OR TEA THEN DRINK do not take laxative with USE of miralax OR generic equivalent. titrate TO stool consistency as reviewed. Increase water intake colestipol [Colestid] 1 gram tablet 1 g PO ONCE Rx Instructions: Please take 2 tablets p.o. twice daily Orilissa 150 mg tablet 150 mg PO DAILY Qty: 30 2RF estradiol 1 mg tablet 1 mg PO DAILY hydroxychloroquine 200 mg tablet 200 mg PO DAILY Patient Comments: ALTERNATE BETWEEN 1 AND 2 TABLETS BY MOUTH EVERY OTHER DAY budesonide-formoterol [Symbicort] 80-4.5 mcg/actuation HFA aerosol inhaler 2 puff inhalation BID Patient Comments: INHALE 2 PUFFS BY MOUTH TWICE DAILY --RINSE MOUTH AFTER USE-- use with spacer amitriptyline 100 mg tablet 100 mg PO DAILY Qty: 30 2RF Rx Instructions: Please take 1 tablet p.o. nightly calcium carbonate [Calcium 600] 600 mg calcium (1,500 mg) tablet 600 mg PO DAILY cholecalciferol (vitamin D3) 125 mcg (5,000 unit) capsule 125 mcg PO DAILY ascorbic acid (vitamin C) 1,000 mg tablet 1 g PO DAILY Qty: 30 4RF hydrocodone-acetaminophen 7.5-325 mg/15 mL solution 15 ml PO Q6H PRN (Reason: pain) 7 Days Qty: 473 0RF omeprazole 40 mg capsule,delayed release(DR/EC) 40 mg PO DAILY Qty: 30 2RF famotidine 40 mg tablet 40 mg PO HS Qty: 30 2RF ondansetron 4 mg tablet,disintegrating 4 mg PO Q6H PRN (Reason: nausea and vomiting) Qty: 20 0RF prednisone 5 mg/5 mL solution 7.5 mg PO DAILY 5 Days Qty: 37.5 0RF Tetracaine Lollipops (0.5%) 1 ea lozenge on a handle 1 ea PO Q1H MDD use x 1min q1h prn PRN (Reason: pain (scale score 4-6)) 7 Days Qty: 4 2RF Rx Instructions: 0.5% tetracaine lollipops hydrocodone-acetaminophen 7.5-325 mg/15 mL solution 15 ml PO Q6H PRN (Reason: pain) 7 Days Qty: 473 0RF Referrals Follow up/Referrals: Eugene Joseph II, MD [Staff Physician] - See instructions Nilda Phipps APRN [Primary Care Provider] - See instructions Activity Restrictions/Add. Instructions Additional Instructions/Restrictions: Your postoperative tonsillar region looks normal and appropriately healing. Please follow-up with your ENT doctor as previously instructed. Your abdominal exam was benign on serial assessments today not consistent with surgical pathology however you did have abnormal LFTs that I want you to follow-up with Dr. Joseph about to ensure resolution. I suspect most likely have a viral syndrome which may be causing the abnormal LFTs. Clinical Impressions Clinical Impression: Nausea & vomiting, Abnormal transaminases Instructions Patient Instructions: DI for Diarrhea and Traveler's Diarrhea -- Adult, DI for Diarrhea and Traveler's Diarrhea -- Child, DI for Nausea -- Adult, DI for Nausea -- Child Print Language Print Language: Greenlandic Discharge ED Provider: Ellen Palacios General Adult HPI General Chief complaint: Nausea/Vomiting/Diarrhea Stated complaint: post op tonsilectomy/vomiting Time Seen by Provider: 03/23/24 18:37 History of Present Illness HPI narrative: Patient is a 33-year-old with an extensive past medical history who presents today with nausea and vomiting. She is a few days postoperative from a tonsillectomy indication she states was having bad tonsils. This was performed Dr. Samuels here at [facility]. She has not had any bleeding. She states that she has had some abdominal discomfort and nausea and vomiting no diarrhea no severe pain. She does have a history of intra-abdominal abscesses please see previous notes for documentation of that but she denies any fever or significant abdominal pain is similar to those episodes in the past. Related Data Home Medications ?Medication ?Instructions ?Recorded ?Confirmed estradiol 1 mg tablet 1 mg PO DAILY 10/31/23 03/21/24 hydroxychloroquine 200 mg tablet 200 mg PO DAILY 12/13/23 03/21/24 budesonide-formoterol HFA 80 2 puff inhalation BID 01/12/24 03/21/24 mcg-4.5 mcg/actuation aerosol inhaler (Symbicort) colestipol 1 gram tablet (Colestid) 1 g PO ONCE Bile bile acid diarrhea 02/24/24 03/21/24 calcium carbonate (Calcium 600) 600 mg PO DAILY 02/28/24 03/21/24 cholecalciferol (vitamin D3) 125 125 mcg PO DAILY 02/28/24 03/21/24 mcg (5,000 unit) capsule polyethylene glycol 3350 17 17 g PO DAILY PRN Constipation 03/13/24 03/21/24 gram/dose oral powder Previous Rx's ?Medication ?Instructions ?Recorded amitriptyline 100 mg tablet 100 mg PO DAILY #30 tabs 02/22/24 ascorbic acid (vitamin C) 1,000 mg 1 g PO DAILY #30 tabs 02/22/24 tablet elagolix 150 mg tablet (Orilissa) 150 mg PO DAILY #30 tabs 02/29/24 Tetracaine Lollipops (0.5%) 1 ea 1 ea PO Q1H PRN pain (scale score 03/21/24 lozenge on a handle 4-6) 7 days #4 ea hydrocodone 7.5 mg-acetaminophen 15 ml PO Q6H PRN pain 7 days #473 03/21/24 325 mg/15 mL oral solution mL hydrocodone 7.5 mg-acetaminophen 15 ml PO Q6H PRN pain 7 days #473 03/21/24 325 mg/15 mL oral solution mL ondansetron 4 mg disintegrating 4 mg PO Q6H PRN nausea and 03/21/24 tablet vomiting #20 tabs prednisone 5 mg/5 mL oral solution 7.5 mg (7.5 mL) PO DAILY 5 days 03/21/24 #37.5 mL omeprazole 40 mg capsule,delayed 40 mg PO DAILY #30 caps 03/22/24 release famotidine 40 mg tablet 40 mg PO HS #30 tabs 03/23/24 promethazine 25 mg tablet 25 mg PO TID PRN nausea and 03/23/24 vomiting 5 days #20 tabs Allergies Allergy/AdvReac Type Severity Reaction Status Date / Time latex Allergy Intermediate Hives Verified 03/21/24 09:31 [facility] Disclaimer: The information contained in this section may have been updated after the patient was seen, as this information can be updated by other users. Medical History (Updated 03/23/24 @ 20:53 by Ellen Palacios MD) Mild pulmonic regurgitation and RV dilation by prior echocardiogram Atypical chest pain Dyspnea on exertion Throat irritation Dry mouth Cyst of right kidney Hoarseness Metallic taste Dysphagia Thyroid nodule Felix Escobar virus infection Abdominal pain Pelvic pain Hemoperitoneum Abscess of pelvis Torticollis Surgical History History of hysterectomy History of esophagogastroduodenoscopy (EGD) S/P removal of left ovary History of D&C History of cholecystectomy History of salpingectomy History of ovarian cystectomy History of right oophorectomy History of hysteroscopy Hx of colonoscopy Hx of laparoscopy Family History Father Coronary artery disease Hypertension Social History (Updated 03/21/24 @ 09:22 by Anjali Garcia RN) Smoking Status: Former smoker tobacco type: cigarettes alcohol intake: never substance use type: other details: THC Pens current occupational status: unemployed Travel in the last 8 weeks: None household members: family housing: house marital status: number of children: 4 caffeine: No Have you lived/traveled outside US in past 30 days?: No Contact w/someone who lives/traveled outside US past 30 days?: No Exposure to someone with infectious disease in past 14 days?: No Do you have a fever (greater than 100.4 F or 38 C)?: No Have you tested positive for COVID-19: No Exposed to someone with COVID-19 in past 14 days?: No Do you have a sore throat?: No Do you have a cough?: No Do you have any weakness?: No Do you have any diarrhea?: No Are you experiencing any unusual bleeding?: No Do you have any muscle aches/pain?: No Do you have any abdominal pain?: No Are you experiencing loss of taste or smell?: No Other Medical History Have you received the Flu Vaccine for this season: No Have you received the Pneumonia Vaccine: No ROS Obtained: Yes All systems reviewed & no additional complaints except as documented Physical Exam General General appearance: alert ENT ENT exam: Present other (Tonsillar fossa's bilaterally appear to be well-healing eschars are in place no evidence of bleeding or soft tissue swelling) Respiratory Respiratory exam: Present normal lung sounds bilaterally Cardiovascular Cardiovascular exam: Present regular rate Abdominal Exam Abdominal exam: Present soft; Absent distention or tenderness Neurological Exam Neurological exam: Present alert and oriented X3 Medical Decision Making Medical Records Screening: Per USPSTF and CDC recommendations, given the prevalence of disease in our region, it is our hospital?s policy to screen for HIV and viral Hepatitis for all patients aged 18 and over and those with ongoing risk factors. Dirk Inquiry Pt receiving controlled substance: No Vital Signs: 03/23/24 18:17 Temperature 97.7 F Temperature Source Oral Pulse Rate [Radial] 84 Respiratory Rate 18 Blood Pressure [Right Arm] 125/81 Blood Pressure Mean [Right Arm] 95 Blood Pressure Source [Right Arm] Automatic Cuff Blood Pressure Position [Right Arm] Sitting 02 Sat by Pulse Oximetry 100 Oxygen Delivery Method Room Air Lab Data Lab results reviewed: Yes I reviewed the patient's lab results. Lab Results 03/23/24 18:42: WBC 10.0, RBC 4.64, Hgb 14.1, Hct 40.4, MCV 87.1, MCH 30.4, MCHC 34.8, RDW 13.2, Plt Count 167, MPV 8.2, Neut % (Auto) 77.4, Lymph % (Auto) 15.5, [place] % (Auto) 5.5, Eos % (Auto) 1.0, Baso % (Auto) 0.6, Neut # (Auto) 7.7, Lymph # (Auto) 1.6, [place] # (Auto) 0.6, Eos # (Auto) 0.1, Baso # (Auto) 0.1, Sodium 137, Potassium 3.1 L, Chloride 107, Carbon Dioxide 21 L, Anion Gap 12.1, BUN 8, Creatinine 0.80, Estimated Creat Clear 101, Estimated GFR 83, Est GFR ( Amer) 101, Glucose 130 H, Calcium 9.6, Total Bilirubin 0.8, AST 127 H, ALT 239 H, Alkaline Phosphatase 129 H, Total Protein 7.4, Albumin 4.8, Globulin 2.6, Albumin/Globulin Ratio 1.8 03/23/24 18:42 03/23/24 18:42 Orders (Tests/Meds): ED MEDICATIONS Discontinued Medications Generic Name Dose Route Start Last Admin Trade Name Freq PRN Reason Stop Dose Admin Sodium Chloride 1,000 mls @ 999 mls/hr 03/23/24 18:45 03/23/24 18:47 Sod Chlor 0.9% 1000ml Bag IV 03/23/24 19:45 999 mls/hr .Q1H1M ROBERTO Administration Ondansetron HCl 4 mg 03/23/24 18:40 03/23/24 18:46 Ondansetron 4mg/2ml Vial IV 03/23/24 18:41 4 mg ONCE ONE Administration Ondansetron HCl 4 mg 03/23/24 20:32 03/23/24 20:33 Ondansetron 4mg/2ml Vial IV 03/23/24 20:33 4 mg ONCE ONE Administration Promethazine HCl 25 mg 03/23/24 20:47 Promethazine 25mg Tablet PO 03/23/24 20:48 ONCE ONE ORDERS Category Date Time Status CBC w/Auto Diff [Complete Blood Count Auto Diff] Stat Lab 03/23/24 18:42 Completed CMP [Comprehensive Metabolic Panel] Stat Lab 03/23/24 18:42 Completed HIV (1&2) Antibody Rapid Stat Lab 03/23/24 18:42 Received Hep C Ab with Reflex to RNA Stat Lab 03/23/24 18:42 Received Medical Decision Narrative: Patient with above history and physical with well-healing tonsillectomy fossa's present today with nausea and vomiting. She has a completely benign abdominal exam and not concerned about surgical pathology particular in her case with a history of intra-abdominal abscesses that is not a concern monitor now. Differential includes food poisoning side effect from medications, viral etiologies etc. will give IV fluids and nausea medicine and reassess. Serial assessments patient has no significant tenderness in her abdomen she has had a cholecystectomy in the past around 10 years ago. She has abnormal transaminases she denies any drinking or significant Tylenol use. I suspect she may have a viral etiology that is causing transaminase to be mildly elevated. She has no surgical pathology from a clinical standpoint will not get a CT scan at the moment. She has also had numerous CT scans in the past and I will limit her lifetime radiation exposure. She is already followed by Dr. Joseph have encouraged her to follow-up with Dr. Joseph outpatient to ensure resolution of these laboratory abnormalities. Zofran did not help her much we have given her Phenergan and will send her home with this. I gave her the option to wait and see if she got better but she wanted to go home and she will return with any worsening symptoms she was discharged in improved and stable condition she will also follow-up outpatient with her ENT doctor as previously instructed. Critical Care Critical Care Time Critical Care Time: No
[2024-03-23] MEDS: ONDANSETRON 4MG/2ML VIAL 4 MG IV ×2 (18:46→20:33)
[2024-03-23] MEDS: 0.9 % SODIUM CHLORIDE 1000ML 1,000 ML 999 ML IV (18:47)
[2024-03-23 18:50] LABS: Basophils # 0.1 K/mm3 (0-0.2); Basophils % 0.6 % (0.1-2.0); Eosinophils # 0.1 K/mm3 (0.0-0.4); Hematocrit 40.4 % (37.0-47.0); Hemoglobin 14.1 g/dL (12.2-16.2); Lymphocytes # 1.6 K/mm3 (0.7-4.5); Lymphocytes % 15.5 % (10-50); Mean Corpuscular HGB Conc 34.8 g/dL (31.8-35.4); Mean Corpuscular Hemoglobin 30.4 pg (27.0-31.2); Mean Corpuscular Volume 87.1 fl (81-99); Mean Platelet Volume 8.2 fl (7.4-10.4); Monocytes # 0.6 K/mm3 (0.1-1.0); Monocytes % 5.5 % (1.7-9.3); Neutrophils # 7.7 K/mm3 (1.8-7.8); Neutrophils % 77.4 % (37.0-80.0); Platelet Count 167 K/mm3 (142-424); Red Blood Count 4.64 M/mm3 (4.20-5.40); Red Cell Distribution Width 13.2 % (11.5-17.5)
[2024-03-23 18:57] LABS: Albumin Level 4.8 g/dl (3.5-5.0); Chloride 107 mmol/L (98-107); Potassium 3.1 mmoL/L (3.5-5.1); Sodium 137 mmol/L (136-145)
[2024-03-23 19:00] LABS: Alanine Aminotransferase 239 U/L (12-78); Albumin/Globulin Ratio 1.8 (1.1-1.8); Alkaline Phosphatase 129 U/L (38-126); Anion Gap 12.1 mEq/L (5-15); Aspartate Amino Transferase 127 U/L (14-36); Bilirubin,Total 0.8 mg/dl (0.2-1.3); Blood Urea Nitrogen 8 mg/dl (7-17); Calcium 9.6 mg/dl (8.4-10.2); Carbon Dioxide 21 mmol/L (22.0-30.0); Creatinine Clearance Estimated 101 mL/min (50-200); Estimated Glomerular Filt Rate 83 ml/min (>60); GFR (African American) 101 ML/MIN (>60); Globulin 2.6 g/dL (1.3-3.2); Glucose 130 mg/dl (74-100); Total Protein,Serum 7.4 g/dl (6.3-8.2)
[2024-03-23] MEDS: PROMETHAZINE 25MG TABLET 25 MG PO (20:57)
[2024-03-23 21:18] VITALS: BP 116/70; PULSE 72; RESP 18; TEMP 36.8; O2SAT 100
[2024-03-24 14:29] LABS: HIV Combo NEGATIVE (Negative)
[2024-03-25 11:15] LABS: HCV Ab Non Reactive (Non Reactive)
== END 2024-03-23 21:10 | disposition home or self-care (01) ==
PROVIDERS: Emergency Provider Student in an Organized Health Care Education/Training Program; PCP Nurse Practitioner Family
DX: R11.2 Nausea with vomiting, unspecified (principal); R74.8 Abnormal levels of other serum enzymes; R10.9 Unspecified abdominal pain
CPT/HCPCS: 80053; 85025; 86803; 87389; 96361; 96374; 96375; 99283; J2405; J7030

== ENCOUNTER 2024-03-28 08:42 | Outpatient (CLI) | payer MEDICAID, SELFPAY ==
[2024-03-28 10:06] LABS: Blood Urea Nitrogen 7 mg/dl (7-17); Estimated Glomerular Filt Rate 73 ml/min (>60); GFR (African American) 88 ML/MIN (>60)
[2024-03-28 10:07] LABS: Alanine Aminotransferase 58 U/L (12-78); Albumin Level 4.3 g/dl (3.5-5.0); Albumin/Globulin Ratio 1.9 (1.1-1.8); Alkaline Phosphatase 86 U/L (38-126); Aspartate Amino Transferase 28 U/L (14-36); Bilirubin,Total 0.6 mg/dl (0.2-1.3); Blood Urea Nitrogen 7 mg/dl (7-17); Calcium 9.6 mg/dl (8.4-10.2); Carbon Dioxide 29 mmol/L (22.0-30.0); Chloride 104 mmol/L (98-107); Estimated Glomerular Filt Rate 73 ml/min (>60); GFR (African American) 88 ML/MIN (>60); Gamma Glutamyl Transpeptidase 108 U/L (12-43); Globulin 2.3 g/dL (1.3-3.2); Glucose 88 mg/dl (74-100); Sodium 140 mmol/L (136-145); Total Protein,Serum 6.6 g/dl (6.3-8.2)
[2024-03-28 10:13] LABS: Anion Gap 11.2 mEq/L (5-15); Potassium 4.2 mmoL/L (3.5-5.1)
== END 2024-03-28 23:59 | disposition home or self-care (01) ==
LOC: LAB 08:43
PROVIDERS: Internal Medicine Pulmonary Disease; PCP Nurse Practitioner Family; Visit Provider Internal Medicine Gastroenterology
DX: R74.8 Abnormal levels of other serum enzymes (principal); R07.89 Other chest pain; R06.09 Other forms of dyspnea
CPT/HCPCS: 36415; 80053; 82565; 82977; 84520

== ENCOUNTER 2024-05-02 07:53 | Day surgery (SDC) | payer MEDICAID, SELFPAY ==
[2024-04-30 16:23] VITALS: BMI 26.5
[2024-05-02 08:51] VITALS: BP 97/59; PULSE 84; RESP 18; TEMP 37.1; O2SAT 100
[2024-05-02] MEDS: LACTATED RINGERS 1000ML 1,000 ML 50 ML IV (09:01)
--- NOTE | 2024-05-02 09:38 | EXP.HP ---
History of Present Illness *Admission Date: 05/02/24 *Reason for visit:: Dyspepsia with globus, dysphagia and esophageal spasm *History of present illness: Ms. Davila is a 33-year-old female who is here for diagnostic upper endoscopy secondary to dyspepsia and esophageal spasm with globus. The examination is deemed medically necessary for EGD. The patient has been seen, interviewed and examined prior to the procedure by both myself and the anesthesia provider. [facility] Disclaimer: The information contained in this section may have been updated after the patient was seen, as this information can be updated by other users. Medical History Mild pulmonic regurgitation and RV dilation by prior echocardiogram Atypical chest pain Dyspnea on exertion Throat irritation Dry mouth Cyst of right kidney Hoarseness Metallic taste Dysphagia Thyroid nodule Felix Escobar virus infection Abdominal pain Pelvic pain Hemoperitoneum Abscess of pelvis Torticollis Surgical History Status post tonsillectomy History of hysterectomy History of esophagogastroduodenoscopy (EGD) S/P removal of left ovary History of D&C History of cholecystectomy History of salpingectomy History of ovarian cystectomy History of right oophorectomy History of hysteroscopy Hx of colonoscopy Hx of laparoscopy Family History Father Coronary artery disease Hypertension Social History (Updated 05/02/24 @ 08:58 by Avani Vo RN) Smoking Status: Former smoker tobacco type: cigarettes alcohol intake: never substance use type: other details: THC Pens current occupational status: unemployed Travel in the last 8 weeks: None household members: family housing: house marital status: number of children: 4 caffeine: Yes Have you lived/traveled outside US in past 30 days?: No Contact w/someone who lives/traveled outside US past 30 days?: No Exposure to someone with infectious disease in past 14 days?: No Do you have a fever (greater than 100.4 F or 38 C)?: No Have you tested positive for COVID-19: Yes Exposed to someone with COVID-19 in past 14 days?: No Do you have a sore throat?: No Do you have a cough?: No Do you have any weakness?: No Are you experiencing any nausea/vomitting?: No Do you have any diarrhea?: No Are you experiencing any unusual bleeding?: No Do you have any muscle aches/pain?: No Do you have any abdominal pain?: No Are you experiencing loss of taste or smell?: No Other Medical History Have you received the Flu Vaccine for this season: No Have you received the Pneumonia Vaccine: No Review of Systems Review of Systems Review of systems (narrative): Negative *Cardiovascular Comments: Negative *Gastrointestinal Comments: Negative *Genitourinary Comments: Negative *Musculoskeletal Comments: Negative *Neurologic Comments: Negative Meds Home Medications and Allergies Home Medications ?Medication ?Instructions ?Recorded ?Confirmed ?Type estradiol 1 mg tablet 1 mg PO DAILY 10/31/23 05/02/24 History budesonide-formoterol HFA 80 2 puff inhalation BID 01/12/24 05/02/24 History mcg-4.5 mcg/actuation aerosol inhaler (Symbicort) amitriptyline 100 mg tablet 100 mg PO DAILY #30 tabs 02/22/24 04/30/24 Rx ascorbic acid (vitamin C) 1,000 mg 1 g PO DAILY #30 tabs 02/22/24 05/02/24 Rx tablet colestipol 1 gram tablet (Colestid) 1 g PO ONCE Bile bile acid diarrhea 02/24/24 05/02/24 History calcium carbonate (Calcium 600) 600 mg PO DAILY 02/28/24 04/30/24 History cholecalciferol (vitamin D3) 125 125 mcg PO DAILY 02/28/24 04/30/24 History mcg (5,000 unit) capsule omeprazole 40 mg capsule,delayed 40 mg PO DAILY #30 caps 03/22/24 05/02/24 Rx release famotidine 40 mg tablet 40 mg PO HS #30 tabs 03/23/24 04/30/24 Rx New Prescriptions to Start Prescriptions: Allergies Allergy/AdvReac Type Severity Reaction Status Date / Time latex Allergy Intermediate Hives Verified 05/02/24 08:47 Exam Data for Last 24 hours Vital signs and Labs for Last 24 Hours: Temp Pulse Resp BP Pulse Ox O2 Del Method 98.8 F 84 18 97/59 L 100 Room Air 05/02/24 08:51 05/02/24 08:51 05/02/24 08:51 05/02/24 08:51 05/02/24 08:51 05/02/24 08:51 I & O for Last 24 hours: Intake & Output 04/29/24 04/30/24 05/01/24 05/02/24 23:59 23:59 23:59 23:59 Weight 145 lb *Routine HEENT Exam Head: Present normocephalic Eye: Present EOMI and PERRL ENT: Present mucous membranes moist *Routine Neck Exam Neck: Present supple *Routine Respiratory Exam Respiratory: Present CTA bilaterally *Routine Cardiovascular Exam Cardiovascular: Present RRR *Routine Abdominal Exam Abdominal: Present soft and normoactive bowel sounds; Absent tenderness *Routine Rectal Exam Rectal:: deferred *Routine Genitalia Exam Genitalia:: deferred *Routine Extremities Exam Extremities: Absent cyanosis, clubbing or edema *Routine Skin Exam Skin: Present warm; Absent rash *Routine Neurological Exam Neurological: Present alert and oriented X3 Assessment and Plan *Assessment and plan (1) Functional dyspepsia: Status: Acute Category: Medical Code(s): K30 - Functional dyspepsia (2) Non-cardiac chest pain: Status: Acute Category: Medical Code(s): R07.89 - Other chest pain (3) Epigastric pain: Status: Acute Category: Medical Code(s): R10.13 - Epigastric pain (4) Belching: Status: Acute Category: Medical Code(s): R14.2 - Eructation (5) Hiccups: Status: Acute Category: Medical Code(s): R06.6 - Hiccough (6) Esophageal spasm: Status: Acute Category: Medical Code(s): K22.4 - Dyskinesia of esophagus (7) Nausea & vomiting: Status: Acute Category: Medical Code(s): R11.2 - Nausea with vomiting, unspecified Plan A/P: 1. Nausea with vomiting, dyspepsia, epigastric pain, bloating, belching, dysphagia and globus sensation is the preprocedural diagnosis. The patient will be anesthetized/sedated using MAC sedation. The patient has been seen and examined. Cardiac and lung assessment prior to the examination is stable. Proceed with planned diagnostic EGD
[2024-05-02 09:45] VITALS: O2SAT 100
--- NOTE | 2024-05-02 09:45 | P.PNANES_ITS ---
[facility] Disclaimer: The information contained in this section may have been updated after the patient was seen, as this information can be updated by other users. Medical History Mild pulmonic regurgitation and RV dilation by prior echocardiogram Atypical chest pain Dyspnea on exertion Throat irritation Dry mouth Cyst of right kidney Hoarseness Metallic taste Dysphagia Thyroid nodule Felix Escobar virus infection Abdominal pain Pelvic pain Hemoperitoneum Abscess of pelvis Torticollis Surgical History Status post tonsillectomy History of hysterectomy History of esophagogastroduodenoscopy (EGD) S/P removal of left ovary History of D&C History of cholecystectomy History of salpingectomy History of ovarian cystectomy History of right oophorectomy History of hysteroscopy Hx of colonoscopy Hx of laparoscopy Family History Father Coronary artery disease Hypertension Social History (Updated 05/02/24 @ 08:58 by Avani Vo RN) Smoking Status: Former smoker tobacco type: cigarettes alcohol intake: never substance use type: other details: THC Pens current occupational status: unemployed Travel in the last 8 weeks: None household members: family housing: house marital status: number of children: 4 caffeine: Yes Have you lived/traveled outside [place] in past 30 days?: No Contact w/someone who lives/traveled outside US past 30 days?: No Exposure to someone with infectious disease in past 14 days?: No Do you have a fever (greater than 100.4 F or 38 C)?: No Have you tested positive for COVID-19: Yes Exposed to someone with COVID-19 in past 14 days?: No Do you have a sore throat?: No Do you have a cough?: No Do you have any weakness?: No Are you experiencing any nausea/vomitting?: No Do you have any diarrhea?: No Are you experiencing any unusual bleeding?: No Do you have any muscle aches/pain?: No Do you have any abdominal pain?: No Are you experiencing loss of taste or smell?: No [facility] Anesthesia Checklist Patient Identification Patient Identification: Arm Band and Verbal (Name & ) Structural Data Admitted From: Home Planned Operative Procedure/s: EGD Consent for Planned Operative Procedure(s) Verified: Yes Verified Documents: Surgical Consent and History and Physical NPO Status Verified Time NPO: 22:00 Chart Verification Results Verified: CBC, BMP and ECG Additional verifications Patient : No Anesthesia Reactions: No Hx Blood Transfusions: No Blood Transfusion Reaction: No Cardiovascular Assessment Heart Sounds: S1 & S2 Pulse Rhythm: Irregular Peripheral Edema: No Airway Assessment Mallampati Score:: Class II C-Spine Mobility Assessed: Yes TMJ Mobility Assessed: Yes Dentition: Good Dentition Neurological Assessment Level of Consciousness: Awake, Alert, Appropriate and Follows Commands Hx Seizures: No Numbness or tingling in extremities: No Anesthesia Plan Anesthesia Risk discussed: Yes Anesthesia Plan: Verified ASA Class: II Anesthesia Type: MAC
--- NOTE | 2024-05-02 09:56 | HMH.PROCNOTE ---
[facility] Procedure Note Date: 05/02/24 Time: 09:57 Procedure Note:: Upper Endoscopy Procedure Report: Esophagogastroduodenoscopy with cold biopsies and TTS balloon dilation Endoscopost: Eugene Joseph II, MD Referring Physician: DYLAN Taylor Date of Procedure: May 02, 2024 Equipment: Olympus GIF 190 standard upper endoscope Sedation: MAC sedation Indications: Mrs. Davila is a 33-year-old female who is here for diagnostic upper endoscopy secondary to her dyspepsia, nausea, bloating and intermittent esophageal spasm. She recently had tonsillectomy in March and developed more significant nausea and vomiting and went to the [facility] emergency department. She states that this happened after she was given some sort of lidocaine liquid or liquid hydrocodone. She also was given Zofran. When she went to the emergency department, she did have lab work. This did show elevated liver chemistries with AST 127, ALT 239 and alkaline phosphatase 129. Her total bilirubin was 0.8. The patient CBC was normal. She does have negative celiac serologies, normal smooth muscle antibody and negative DB screen. Her quantitative immunoglobulins were normal. She has negative hepatitis serologies from previously. Her chest CT on 03/16 was unremarkable. The patient had seen me in December 2023, February 2024 and last seen on 03/28/2024. The patient was having chronic diarrhea and responded well to colestipol. She has had prior cholecystectomy. The patient did have a colonoscopy in August 2022 (Richard Connor MD) had sepsis for 10 to 12 days subsequently. She did have esophageal dilation with Alexis Merkley in July 2023. She does get intermittent pain in the upper abdomen. She has never had pancreatitis. Her CRP and other labs are normal. She had a normal cardiac evaluation previously. She still has some moderate bloating, belching, dysphagia and globus sensation. Procedure: Prior to the procedure, a history and physical exam was performed, and patient's medications and allergies were reviewed. The risks, benefits and alternatives of the sedation and procedure were discussed with the patient. All questions were answered and informed consent was obtained. The patient was brought to the procedure room. Patient identification and proposed procedure were verified by the physician and the nurse. The patient was placed in a left lateral decubitus position and the scope was passed under direct vision. Throughout the procedure, the patient's blood pressure, pulse, and oxygen saturations were monitored continuously. The upper GI endoscopy was accomplished without difficulty. The patient tolerated the procedure well. Findings: The scope was passed directly into the upper esophagus and advanced to the third portion of the duodenum. The post bulbar duodenum, ampulla and duodenal bulb were normal with normal mucosa and conniventes. Cold biopsies were taken from the first portion of the duodenum to rule out celiac disease. The scope was withdrawn through a normal duodenal bulb and pylorus into the stomach. There was some very mild linear reactive gastropathy of the antrum and body of the stomach. Cold biopsies were obtained. The remainder of the body and fundus of the stomach were normal. Upon retroflexion there was no hiatal hernia. The scope was then withdrawn into the esophagus. There was no evidence of reflux esophagitis or Toledo's. There were no rings, corrugation or furrowing. There was no proximal esophageal inlet patch. There were stronger tertiary contractions and evidence of moderate esophageal dysmotility. The entire esophagus was dilated to 60 Lithuanian/20 mm with a TTS hydrostatic balloon. There was some resistance at the cricopharyngeus. The remainder of the esophageal mucosa was normal. Impression: 1. Cricopharyngeal spasm status post dilation to 20 mm 2. Nonerosive GERD with moderate esophageal dysmotility 3. Mild linear reactive gastropathy with bile reflux Plan: The patient does have functional dyspepsia and functional GERD. Most of her symptoms of dyspepsia, reflux with esophageal spasm are related to and driven by lower intestinal gas pressure gradients/high gas pressure buildup resulting in backflow of bile and peptic fluid from the duodenum into the stomach (duodenal reflux). This gas production (carbon dioxide, hydrogen, methane, etc.) from the lower intestinal tract is the byproduct of colonic bacterial fermentation. This colonic fermentation occurs when there is more carbohydrate (dietary starches, sugars and high residue plant fiber) substrate that does not get digested (in the middle or small intestine) or occurs when there is colonic fecal buildup and colonic bacterial overgrowth. This indeed leads to bloating and the gas pressure buildup with gas pressure gradients that do drive backflow and dyspepsia. I do feel that it is possible that some of her spike in liver chemistries and pain may be related to sphincter of Oddi dysfunction or a reactive hepatopathy.
[2024-05-02 10:03] VITALS: BP 98/55; PULSE 83; RESP 16; TEMP 36.5; O2SAT 96
[2024-05-02 10:13] VITALS: BP 98/62; PULSE 73; RESP 16; O2SAT 100
[2024-05-02 10:23] VITALS: BP 95/67; PULSE 77; RESP 18; O2SAT 100
[2024-05-02 10:33] VITALS: BP 98/62; PULSE 67; RESP 18; TEMP 36.5; O2SAT 100
== END 2024-05-02 11:13 | disposition home or self-care (01) ==
PROVIDERS: PCP Nurse Practitioner Family; Visit Provider Internal Medicine Gastroenterology
PROC: 0DJ08ZZ Inspection of Upper Intestinal Tract, Via Natural or Artificial Opening Endoscopic (ICD-10-PCS; CPT 43239; principal; 2024-05-02 09:30)
DX: K30 Functional dyspepsia (principal); R07.89 Other chest pain; R14.2 Eructation; R06.6 Hiccough; K22.4 Dyskinesia of esophagus; R11.2 Nausea with vomiting, unspecified; K31.9 Disease of stomach and duodenum, unspecified; K21.9 Gastro-esophageal reflux disease without esophagitis; J39.2 Other diseases of pharynx
CPT/HCPCS: 43239; 43249; C1726; J7120

== ENCOUNTER 2024-05-04 13:32 | Outpatient (CLI) | payer MEDICAID, SELFPAY ==
[2024-05-04 13:15] LABS: Basophils % 0.4 % (0.1-2.0); Eosinophils # 0.1 K/mm3 (0.0-0.4); Eosinophils % 2.4 % (0.1-12.0); Hematocrit 41.1 % (37.0-47.0); Hemoglobin 13.5 g/dL (12.2-16.2); Lymphocytes # 1.5 K/mm3 (0.7-4.5); Lymphocytes % 32.7 % (10-50); Mean Corpuscular HGB Conc 32.8 g/dL (31.8-35.4); Mean Corpuscular Hemoglobin 30.4 pg (27.0-31.2); Mean Corpuscular Volume 92.6 fl (81-99); Mean Platelet Volume 11.2 fl (7.4-10.4); Monocytes # 0.3 K/mm3 (0.1-1.0); Monocytes % 5.5 % (1.7-9.3); Neutrophils # 2.7 K/mm3 (1.8-7.8); Neutrophils % 58.8 % (37.0-80.0); Platelet Count 176 K/mm3 (142-424); Red Blood Count 4.44 M/mm3 (4.20-5.40); Red Cell Distribution Width 12.5 % (11.5-17.5); White Blood Count 4.6 K/mm3 (4.8-10.8)
[2024-05-04 13:40] LABS: Magnesium 1.9 mg/dl (1.6-2.3); Uric Acid 3.6 mg/dl (2.5-6.2)
[2024-05-04 13:57] LABS: 25-OH Vitamin D, Total 70.9 ng/mL (30-100)
[2024-05-04 14:25] LABS: Ferritin 54.4 ng/ml (6.24-137)
[2024-05-04 14:47] LABS: Erythrocyte Sedimentation Rate 13 mm/hr (0-20)
[2024-05-05 08:21] LABS: RA Latex Turbid. <10.0 IU/mL (<14.0)
[2024-05-07 15:14] LABS: EBV Ab VCA, IgG 39.2 U/mL (0.0-17.9); EBV Ab VCA, IgM <36.0 U/mL (0.0-35.9)
[2024-05-14 13:53] LABS: Antinuclear Antibodies, IFA POSITIVE
== END 2024-05-04 23:59 | disposition home or self-care (01) ==
LOC: LAB.DROPOF 13:32
PROVIDERS: PCP Nurse Practitioner Family; Visit Provider Nurse Practitioner Family
DX: B27.90 Infectious mononucleosis, unspecified without complication (principal); R25.2 Cramp and spasm; M25.50 Pain in unspecified joint; R76.8 Other specified abnormal immunological findings in serum; D64.9 Anemia, unspecified
CPT/HCPCS: 82306; 82728; 83735; 84550; 85025; 85651; 86038; 86431; 86664; 86665

== ENCOUNTER 2024-05-24 14:54 | Outpatient (CLI) | payer MEDICAID, SELFPAY ==
[2024-05-24] MEDS: ALBUTEROL 0.083% 2.5 MG/3 ML NEB IH (16:51)
[2024-05-24] MEDS: METHACHOLINE CHLORIDE 65MG/18ML KIT 64 MG IH (16:51)
== END 2024-05-24 23:59 | disposition home or self-care (01) ==
LOC: RT 14:54
PROVIDERS: PCP Nurse Practitioner Family; Visit Provider Internal Medicine Pulmonary Disease
DX: R06.09 Other forms of dyspnea (principal)
CPT/HCPCS: 94070; 94618; 95070; J7613; J7674

== ENCOUNTER 2024-06-12 12:59 | Outpatient (CLI) | payer MEDICAID, SELFPAY | END 2024-06-12 23:59 | disposition home or self-care (01) | PROVIDERS: PCP Nurse Practitioner Family; Visit Provider Nurse Practitioner Family | DX: K58.0 Irritable bowel syndrome with diarrhea (principal) | CPT/HCPCS: 97802 ==

== ENCOUNTER 2024-06-21 08:35 | Outpatient (CLI) | payer MEDICAID, SELFPAY ==
--- NOTE | 2024-06-21 08:37 | XR_ITS ---
FINAL REPORT CLINICAL HISTORY: Left Hip Pain COMPARISON: 07/25/2023 FINDINGS: LEFT HIP: Two views of the left hip with an AP view of the pelvis demonstrate no acute fracture or dislocation. The joint spaces appear normal. The visualized bony structures are well aligned. No soft tissue abnormality is seen. IMPRESSION: No acute bony abnormality. Reviewed, Interpreted and Dictated by Storm Avitia MD Transcribed by Tracy Tavares Authenticated and [facility]
== END 2024-06-21 23:59 | disposition home or self-care (01) ==
LOC: RAD 08:36
PROVIDERS: PCP Nurse Practitioner Family; Visit Provider Physician Assistant
DX: M25.552 Pain in left hip (principal)
CPT/HCPCS: 73502

== ENCOUNTER 2024-06-29 10:47 | Outpatient (CLI) | payer MEDICAID, SELFPAY ==
[2024-06-29 11:00] LABS: Basophils % 0.4 % (0.1-2.0); Eosinophils # 0.1 K/mm3 (0.0-0.4); Eosinophils % 1.9 % (0.1-12.0); Hematocrit 41.7 % (37.0-47.0); Hemoglobin 14.2 g/dL (12.2-16.2); Lymphocytes # 1.8 K/mm3 (0.7-4.5); Lymphocytes % 32.9 % (10-50); Mean Corpuscular HGB Conc 34.1 g/dL (31.8-35.4); Mean Corpuscular Hemoglobin 30.5 pg (27.0-31.2); Mean Corpuscular Volume 89.7 fl (81-99); Mean Platelet Volume 10.2 fl (7.4-10.4); Monocytes # 0.3 K/mm3 (0.1-1.0); Monocytes % 5.5 % (1.7-9.3); Neutrophils # 3.2 K/mm3 (1.8-7.8); Neutrophils % 59.1 % (37.0-80.0); Platelet Count 189 K/mm3 (142-424); Red Blood Count 4.65 M/mm3 (4.20-5.40); Red Cell Distribution Width 11.9 % (11.5-17.5); White Blood Count 5.3 K/mm3 (4.8-10.8)
[2024-07-02 15:03] LABS: EBV Ab VCA, IgG 43.1 U/mL (0.0-17.9); EBV Ab VCA, IgM <36.0 U/mL (0.0-35.9)
== END 2024-06-29 23:59 | disposition home or self-care (01) ==
LOC: LAB 10:48
PROVIDERS: PCP Nurse Practitioner Family; Visit Provider Nurse Practitioner Family
DX: I88.9 Nonspecific lymphadenitis, unspecified (principal)
CPT/HCPCS: 36415; 85025; 86664; 86665

== ENCOUNTER 2024-07-04 09:56 | Outpatient (RCR) | payer MEDICAID, SELFPAY ==
--- NOTE | 2024-07-04 15:48 | HMH.PTOPEV ---
PT Outpatient Evaluation Rehab PT Outpatient Evaluation Start: 07/04/24 15:17 Freq: Status: Active Protocol: Document 07/04/24 15:18 REBECCA (Rec: 07/04/24 15:48 REBECCA [id number]) E-signed By Guillermo Manzano, PT Outpatient Therapy Subjective History Subjective History This is the initial PT eval for Simone Davila, 33 yowf who presents with c/o L ankle/foot instability and pain x ~ 2 yrs overall. She reports hx of prior ankle injuries in the past with normal activities. She also reports hx of L SI jt pathology that she is seeking care for in the near future. She reports, My ankle just feels like it gives away on me all the time. 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 She has previously undergone MRI without any noted abnormalities. She has recent hx of hysterectomy with multiple abdominal surgeries preceding this most recent one . Chief Complaint Pain,Gives out/Unstable Symptom Type Ache,Sharp Symptoms Relieved By Rest/Positioning Symptoms Aggravated By Physical Activity Prior Functional Limitations None Current Functional Limitations Driving,Standing,Walking Symptom Description Intermittent,Activity Dependent Level of pain today (0-10) 0 Pain scale - at its worst (0-10) 4 Ankle/Foot Eval ROM left Ankle/Foot Dorsiflexion w/Knee Extended 0-20 Active Range Motion (degrees) Ankle/Foot Plantar Flexion Active Range 0-45 of Motion (degrees) Ankle/Foot Eversion Active Range of 0-30 Motion (degrees) Ankle/Foot Inversion Active Range of 0-42 Motion (degrees) Great Toe ROM Reason Not Measured Within Functional Limits MMT Ankle Dorsiflexion Strength Grade 4 Good Ankle Plantarflexion Strength Grade 4 Good Foot Eversion Strength Grade 4 Good Foot Inversion Strength Grade 4 Good Special Tests Ankle Anterior Drawer Test Negative Left,Negative Right Ankle Eversion Test Negative Left,Negative Right Talar Tilt Test Negative Left,Negative Right Ankle Inversion (supination) Test Negative Left,Negative Right Ankle Posterior Drawer Test Negative Left,Negative Right Lower Extremity Functional Index Activities Today, do you or would you have any difficulty at all with: a.Any of your usual work, housework or A little bit of difficulty school activities b. Your usual hobbies, recreational or Quite a bit of difficulty sporting activities c. Getting into or out of the bath No difficulty d. Walking between rooms No difficulty e. Putting on your shoes or socks No difficulty f. Squatting Moderate difficulty g. Lifting an object, like a bag of Extreme difficulty or unable groceries from the floor to perform activity h. Performing light activities around A little bit of difficulty your home i. Performing heavy activities around Quite a bit of difficulty your home j. Getting into or out of a car A little bit of difficulty k. Walking 2 blocks Extreme difficulty or unable to perform activity l. Walking a mile Extreme difficulty or unable to perform activity m. Going up or down 10 stairs (about 1 Extreme difficulty or unable flight of stairs) to perform activity n. Standing for 1 hour A little bit of difficulty o. Sitting for 1 hour Moderate difficulty p. Running on even ground Extreme difficulty or unable to perform activity q. Running on uneven ground Extreme difficulty or unable to perform activity r. Making sharp turns while running fast Extreme difficulty or unable to perform activity s. Hopping Extreme difficulty or unable to perform activity t. Rolling over in bed A little bit of difficulty LEFI Score Lower Extremity Functional Index Score 33 Miscellaneous Dx PT Eval Objective Objective Beighton Scale Score ( hyperflexibility): 10/17 Arch: B arch presents with normal height and very flexible. This results in B calcaneal valgus during stance phase of gait. Outpatient Therapy Assessment Impairments Problems/Impairmments Palpation Tenderness,Impaired Strength,Impaired Transfers, Impaired Walking,Impaired Standing,Impaired Household Care,Impaired Work Activities, Subjective C/O Pain,Impaired Self Care/Self Management Prognosis Rehab Potential Good Comment Signs and symptoms consistent with L ankle instability with symptoms increased due to underlying joint hyper- flexibility. Skilled therapy services are indicated to improve strength and L ankle stability in order to return pt to PLOF. 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 Number of Weeks 4 Increase Strength Yes: L ankle 5/5 throughout Return to Recreational Activities Yes: without L ankle pain Improve LEFI Score Yes: at least 55 Decrease Subjective C/O Pain Yes: 0/10 with work activities Patient to be Ind w/ Advanced HEP Yes Outpatient Therapy Plan of Care Treatment Plan May Include Therapeutic Exercise Including Home Yes Exercise Program Manual Therapy Techniques Yes Neuromuscular Re-education Yes Therapeutic Activities to Return to Yes Previous Functional/Work Level ADL/Self Care Education Yes Thermal Modalities Yes Electrical Stimulation Yes Ultrasound/Phonophoresis Yes Orthotics/Bracing/Splinting Yes Eval/Re-Eval Yes Frequency Times per week 2 Duration Number of Weeks 4 Addendums This patient is a candidate for social No or vocational rehab? Patient/Guardian verbally acknowledges Yes understanding of treatment program and consents to further treatment? Patient/Guardian verbally acknowledges Yes understanding of diagnosis, prognosis and goals for treatment? Eval Complexity PT Charges 36793 - High Complexity Shoulder/Elbow Eval Shoulder Objective Measurements Elbow Objective Measurements PHYSICIAN CERTIFICATION: I certify the specified therapy services for Simone Davila are required, authorized, and reviewed every 30 days.
== END 2024-07-04 23:59 | disposition home or self-care (01) ==
LOC: PT 09:56
PROVIDERS: PCP Nurse Practitioner Family; Visit Provider Podiatrist
DX: M25.372 Other instability, left ankle (principal); M67.88 Other specified disorders of synovium and tendon, other site; M77.42 Metatarsalgia, left foot; M79.672 Pain in left foot
CPT/HCPCS: 97163

== ENCOUNTER 2024-07-10 13:56 | Outpatient (CLI) | payer MEDICAID, SELFPAY ==
[2024-07-11 12:20] LABS: H. pylori Breath Test Negative (Negative)
== END 2024-07-10 23:59 | disposition home or self-care (01) ==
LOC: LAB 13:57
PROVIDERS: PCP Nurse Practitioner Family; Visit Provider Nurse Practitioner Family
DX: R13.10 Dysphagia, unspecified (principal)
CPT/HCPCS: 83013

== ENCOUNTER 2024-07-24 08:55 | Outpatient (RCR) | payer MEDICAID, SELFPAY | END 2024-07-24 23:59 | disposition home or self-care (01) | LOC: PT 08:55 | PROVIDERS: PCP Nurse Practitioner Family; Visit Provider Podiatrist | DX: M25.372 Other instability, left ankle (principal); M77.42 Metatarsalgia, left foot; M79.672 Pain in left foot; M67.88 Other specified disorders of synovium and tendon, other site | CPT/HCPCS: 97530 ==

== ENCOUNTER 2024-07-24 13:15 | Outpatient (CLI) | payer MEDICAID, SELFPAY ==
[2024-07-24 17:43] LABS: Basophils % 0.4 % (0.1-2.0); Eosinophils # 0.1 K/mm3 (0.0-0.4); Hematocrit 40.1 % (37.0-47.0); Hemoglobin 13.6 g/dL (12.2-16.2); Lymphocytes # 1.9 K/mm3 (0.7-4.5); Lymphocytes % 34.1 % (10-50); Mean Corpuscular HGB Conc 33.9 g/dL (31.8-35.4); Mean Corpuscular Hemoglobin 30.7 pg (27.0-31.2); Mean Corpuscular Volume 90.5 fl (81-99); Mean Platelet Volume 11.4 fl (7.4-10.4); Monocytes # 0.4 K/mm3 (0.1-1.0); Monocytes % 6.5 % (1.7-9.3); Neutrophils # 3.2 K/mm3 (1.8-7.8); Neutrophils % 56.8 % (37.0-80.0); Nucleated Red Blood Cells # 0 10^3/uL; Nucleated Red Blood Cells % 0 %; Platelet Count 192 K/mm3 (142-424); Red Blood Count 4.43 M/mm3 (4.20-5.40); Red Cell Distribution Width 12.3 % (11.5-17.5); Red Cell Distribution Width-SD 40.6 fL; White Blood Count 5.5 K/mm3 (4.8-10.8)
[2024-07-24 19:08] LABS: Albumin Level 4.4 g/dl (3.5-5.0); Chloride 106 mmol/L (98-107)
[2024-07-24 19:09] LABS: Potassium 4.3 mmoL/L (3.5-5.1); Sodium 140 mmol/L (136-145)
[2024-07-24 19:11] LABS: Blood Urea Nitrogen 8 mg/dl (7-17); Estimated Glomerular Filt Rate 97 ml/min (>60); GFR (African American) 117 ML/MIN (>60)
[2024-07-24 19:12] LABS: Alanine Aminotransferase 120 U/L (12-78); Albumin/Globulin Ratio 1.8 (1.1-1.8); Alkaline Phosphatase 108 U/L (38-126); Anion Gap 13.3 mEq/L (5-15); Aspartate Amino Transferase 94 U/L (14-36); Bilirubin,Total 0.3 mg/dl (0.2-1.3); Calcium 9.1 mg/dl (8.4-10.2); Carbon Dioxide 25 mmol/L (22.0-30.0); Globulin 2.5 g/dL (1.3-3.2); Glucose 76 mg/dl (74-100); Total Protein,Serum 6.9 g/dl (6.3-8.2)
--- OUTSIDE RECORDS SUMMARY | 2024-07-25 12:30 | XMS_ITS ---
Care Plan - [facility], [facility] Created on: July 25, 2024 Simone Davila : 1990 Sex: Female Author Organization [facility] , [facility] Address [address] [place] [address] Phone Care Team Providers Care Social Services Manager Name Role Phone KATHLEEN BHARDWAJ Primary Care Provider [phone] Dilip REYES, Juvencio Cummins Unavailable [phone]
--- OUTSIDE RECORDS SUMMARY | 2024-07-25 12:30 | XMS_ITS ---
Author Organization [facility] , [facility] Address [address] [place] [address] Phone Care Team Providers Care Senior Specialist Name Role Phone TRACIE BHARDWAJNIE Primary Care Provider [phone] Juvencio Cherry MD Unavailable [phone] Problems Includes: Active, inactive, and resolved Problems All Visits Onset Date Resolved Date Provider Condition S tatus Lower Back Pain 07/19/2024 EDILIA CISNEROS PA-C Active Last Documented On 5 8:08AM ; [facility], [facility] Plan of Treatment Future Appointments Date Time Location Provi wally Follow Up 09/06/2024 9:30AM [facility] EDILIA CISNEROS PA-C Last Documented On 5 9:34AM ; [facility], [facility] Instructions to patient Lose weight Last Documented On 5 9:21AM ; [facility] Lose weight Last Documented On 5 8:14AM ; [facility], [facility] Assessments Includes: Assessments for all patient encounters Findings Encounter Date Overweight Intake with EDILIA CISNEROS PA-C 07/19/2024 Last Documented On 5 9:11AM ; [facility], [facility] Overweight Non Physician Specified with SPENSER CISNEROS PA-C 07/19/2024 Last Documented On 5 9:36AM ; [facility], [facility] Instructions Includes: Instructions for all patient encounters Instructions to patient Lose weight Last Documented On 5 9:21AM ; [facility], [facility] Lose weight Last Documented On 5 8:14AM ; [facility] Medical Equipment - Implanted Devices Includes: Current and historical Devices No Medical Equipment Recorded Medications Includes: Current and historical Medications Current Medications (continue as prescribed) Colestipol HCl 1 GM Oral Tablet 07/19/2024 Provider: Diagnosis: Last Documented On 5 8:10AM By Hayley Villarreal ; [facility] Alendronate-Vitamin D 3 1000 IU Oral Tablet 07/19/2024 Provider: Diagnosis: Last Documented On 5 8:10AM By Hayley Villarreal ; [facility], [facility] Multi Vitamin Daily Oral Tablet 07/19/2024 Provider: Diagnosis: Last Documented On 5 8:10AM By Hayley Villarreal ; [facility] Vitamin C 1000 MG Oral Tablet 07/02/2024 Provider: KATHLEEN BHARDWAJ Diagnosis: Last Documented On 5 8:09AM By Hayley Villarreal ; [facility] DULoxetine HCl 30 MG Oral Ca psule Delayed Release Particles 06/29/2024 Provider: KATHLEEN BHARDWAJ Diagnosis: Last Documented On 5 8:09AM By Hayley Villarreal ; [facility] Amitriptyline HCl 100 MG Oral Tablet 06/26/2024 Prov ider: GORDON CONNOR II, MD Diagnosis: Last Documented On 5 8:09AM By Hayley Villarreal ; [facility] Famotidine 40 MG Oral Tablet 06/25/2024 Provider: GORDON CONNOR II, MD Diagnosis: Last Documented On 5 8:09AM By Hayley Villarreal ; [facility] Estradiol 1 MG Oral Tablet 06/18/2024 Provider: Diagnosis: Last Documented On 5 8:09AM By Hayley Villarreal ; [facility] Omeprazole 40 MG Oral Capsul e Delayed Release 06/15/2024 Provider: GORDON CONNOR II, MD Diagnosis: Last Documented On 5 8:09AM By Hayley Villarreal ; [facility] Medications Administered Includes: Administered Medications in patient's chart No Administered Medications Recorded Vital Signs Includes: Vital Signs from 07/26/2023 through 07/25/2024 Vital Name 07/19/2024 09:21A 07/19/2024 08: 11A Height (in) 62 62 Weight (lb) 150 150 Body Mass Index 27.4 27.4 Body Surface Area 1.7 1.7 Note: PW pw Last Documented: On 07/19/2024 9:21AM ; [facility] On 07/19/2024 8:11AM ; [facility], [facility] Results Includes: Results from 07/26/2023 through 07/25/2024 No Results Recorded For Specified Dates History of Present Illness History of Present Illness not supported for this document type No History of Present Illness Recorded Social History Description Last Updated Caffeine use 07/19/2024 Last Documented On 5 9:11AM ; [facility], [facility] Exercising regularly 07/19/2024 Last Documented On 5 9:11AM ; [facility], [facility] No recent change in diet 07/19/2024 Last Documented On 5 9:11AM ; [facility], [facility] Not a current smoker. 07/19/2024 Last Documented On 5 9:11AM ; [facility], [facility] Not using alcohol 07/19/2024 Last Documented On 5 9:11AM ; [facility], [facility] Not using drugs 07/19/2024 Last Documented On 5 9:11AM ; [facility], [facility] Smoking Status Unknown Procedures and Surgical History Includes: Procedures from 07/26/2023 through 07/25/2024 Procedures Code Diagnosis Performing Provider Service Location Service Date X-RAY EXAM OF LOWER SPINE 4-5 [id number] Sacroiliitis, not elsewhere classified EDILIA CISNEROS PA-C [facility] 07/19/2024 Last Documented On 5 8:53AM ; [facility], [facility] Surgical History Last Updated History of History of Gallbladder 2024 Last Documented On 5 9:11AM ; [facility], [facility] History of hysterectomy 07/19/2024 Last Documented On 5 9:11AM ; [facility], [facility] Medical History Includes: Medical History in patient's chart Description Last Updated History of asthma 07/19/2024 Last Documented On 5 9:11AM ; [facility] Family History Includes: Family History in patient's chart Description Last Updated Family history of cancer 07/19/2024 Last Documented On 5 9:11AM ; [facility] Family history of heart disease 07/20/19 25 Last Documented On 5 9:11AM ; [facility] Review of Systems Review of Systems not supported for this document type No Review of Systems Recorded Mental Status Description Anxiety Functional Status No Functional Status Recorded Physical Exam Physical Exam not supported for this document type No Physical Exam Recorded Allergies Includes: Active, inactive, and resolved Allergies Substance Type Reaction Onset Date Resolved Date Statu s Latex Allergy 07/19/2024 Active Last Documented On 9:21AM ; [facility] Encounters Includes: Encounters from 07/26/2023 through 07/25/2024 Encounter Provider Location Date Check-In Time Check-Out Time Diagnosis Non Physician Specified EDILIA CISNEROS PA-C [facility] 07/20/19 8:59AM 9:32AM Overweight Intake EDILIA CISNEROS PA-C 07/20/19 8:08AM 11:59PM Overweight Insurance Includes: Active Insurance Policies Plan Name Member ID Group # Subscriber Relationship Effect li Dates 1 - [facility] [id number] Simone Davila Self Clinical Notes Includes: Signed Clinical Notes starting from 03/25/2022 * Progress note Date Encounter Last Documented by 07/19/2024 Non Physician Specified Last doc umented on 07/19/2024; 9:36 AM, EDILIA CISNEROS PA-C; [facility] Active Problems & Conditions - Lower Back Pain Chief Complaint The Chief Complaint is: Low back pain. Referred Here Referred by pcp. History of Present Illness Simone Davila is a 33 year old female. - Symptoms popping better not really worse when sitting/standing a long time. - Allergy list reviewed - Problem list reviewed - Medication list reviewed - Previous history of new onset pain Injury is not work related or an automotive accident - Sharp pain Symptoms - Stabbing - Pain is throbbing - Pain is dull, aching - Patient pain level from 1-10: 5 - History of Home Exercise home - - Review of medications documented Medications used for this condition: ibuprofen Patient presents today with complaints of left lower back hip and even some groin pain. Thinking this was a hip problem she saw 1 of our other providers. Patient was evaluated at that time where she was found to have quite a bit of discomfort in her around the left sacroiliac joint and patient has been referred here for further assessment and treatment. 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 This affects mainly the left hip and buttock area with some refers symptoms into the groin area. The right side does not bother. She does not have nerve root compression complaints. Current Medication - Alendronate-Vitamin D 3 1000 IU Oral Tablet 1000 IU take as directed 0 days, 0 refills - Amitriptyline HCl 100 MG Oral Tablet 30 days, 0 refills - Colestipol HCl 1 GM Oral Tablet take as directed 0 days, 0 refills - DULoxetine HCl 30 MG Oral Capsule Delayed Release Particles 30 days, 0 refills - Estradiol 1 MG Oral Tablet 30 days, 0 refills - Famotidine 40 MG Oral Tablet 30 days, 0 refills - Multi Vitamin Daily Oral Tablet take as directed 0 days, 0 refills - Omeprazole 40 MG Oral Capsule Delayed Release 30 days, 0 refills - Vitamin C 1000 MG Oral Tablet 30 days, 0 refills Past Medical/Surgical History Diagnoses: Asthma Surgical: - Hysterectomy - History of Gallbladder Social History Not a current smoker. Current diet: No recent change in diet. Caffeine use: Caffeine use. Alcohol: Not using alcohol. Drug Use: Not using drugs. Habits: Exercising regularly. Allergies - Latex Family History Cancer Heart disease Review Of Systems Systemic: Feeling tired. No recent weight loss and no recent weight gain. Head: Headache. No sinus pain. Eyes: No vision problems and no Cataracts. Glasses/Contacts. No Glaucoma. Otolaryngeal: No hearing loss. Tinnitus. Cardiovascular: Chest pain or discomfort. No palpitations, no Hypertension, and no High Cholesterol. Pulmonary: Daytime asthma symptoms. No chronic cough. No wheezing. Gastrointestinal: No heartburn. Abdominal pain and Indigestion. No Peptic Ulcer, no GI Stomach Bleed, and no Ulcers. Acid Reflux. Endocrine: Hot flashes. No muscle weakness, no Diabetes, no Hypothyroid, and no Hyperthyroid. Hematologic: No easy bleeding. A tendency for easy bruising. No Anemia. Musculoskeletal: Arthritis and lower back pain. No soft tissue swelling. Pain localized to one or more joints. Neurological: Dizziness. No convulsions and no numbness. Psychological: Anxiety. No emotional lability, no depression, and no insomnia. Not crying for no reason. Skin: No dry skin. No Ulcers, no Scars, and no rash. Allergic and Immunologic: No complaint of seasonal allergic reaction. Physical Findings - Vitals taken 07/19/2024 09:21 am PW Height 62 in 60 - 75 Weight 150 lbs 98 - 183 Body Mass Index 27.4 kg/m2 Body Surface Area 1.7 m2 Patient has pain over [place]. Discomfort with forward flexion of the lumbar spine reproducing pain in the left SI region.. Fabers, thigh thrust and Gaenslen's testing will reproduce pain in the left lower back and buttock area.hip knee and ankle motion do not reproduce pain in these areas. Straight leg raising is negative for nerve root compression. He has normal neurovascular findings. Tests X-rays of the lumbar spine demonstrate good disc height. Normal alignment. Normal lordosis. No advanced degenerative changes. Assessment - Overweight Sacroiliitis on the left side. Previous Tests Imaging: X-Ray: X-ray 07/19/2024 [facility]. Counseling/Education - Tobacco non-user - Use of tobacco assessment performed - Lose weight Plan StartCited - Low back pain, unspecified Therapy/Physical Therapy: Lumbar Instructions: See PT order attached EndCited I will get her involved with some physical therapy. She can use some [id number] Tylenol and/or NSAIDs to help manage her symptoms. We will schedule her back in 6-8 weeks for follow up. If still symptomatic then we may consider doing an injection into the left SI joint. I do not anticipate any surgical treatment for this. Care Team - KATHLEEN BHARDWAJ Health Reminders - Assess BMI satisfied 07/19/2024. - Assess Tobacco Use satisfied 07/19/2024. - Follow Up Plan BMI Management satisfied 07/19/2024. * Progress note Date Encounter Last Documented by 07/19/2024 Intake Last documented on 07/19/2024; 9:11 AM, EDILIA CISNEROS PA-C; [facility], [facility] Active Problems & Conditions - Lower Back Pain Chief Complaint The Chief Complaint is: Low back pain. Referred Here Referred by pcp. History of Present Illness Simone Davila is a 33 year old female. - Symptoms popping better not really worse when sitting/standing a long time. - Allergy list reviewed - Problem list reviewed - Medication list reviewed - Previous history of new onset pain Injury is not work related or an automotive accident - Sharp pain Symptoms - Stabbing - Pain is throbbing - Pain is dull, aching - Patient pain level from 1-10: 7 - History of Home Exercise home - - Review of medications documented Medications used for this condition: ibuprofen Current Medication - Alendronate-Vitamin D 3 1000 IU Oral Tablet 1000 IU take as directed 0 days, 0 refills - Amitriptyline HCl 100 MG Oral Tablet 30 days, 0 refills - Colestipol HCl 1 GM Oral Tablet take as directed 0 days, 0 refills - DULoxetine HCl 30 MG Oral Capsule Delayed Release Particles 30 days, 0 refills - Estradiol 1 MG Oral Tablet 30 days, 0 refills - Famotidine 40 MG Oral Tablet 30 days, 0 refills - Multi Vitamin Daily Oral Tablet take as directed 0 days, 0 refills - Omeprazole 40 MG Oral Capsule Delayed Release 30 days, 0 refills - Vitamin C 1000 MG Oral Tablet 30 days, 0 refills Past Medical/Surgical History Diagnoses: Asthma Surgical: - Hysterectomy - History of Gallbladder Social History Not a current smoker. Current diet: No recent change in diet. Caffeine use: Caffeine use. Alcohol: Not using alcohol. Drug Use: Not using drugs. Habits: Exercising regularly. Allergies - Latex Family History Cancer Heart disease Review Of Systems Systemic: Feeling tired. No recent weight loss and no recent weight gain. Head: Headache. No sinus pain. Eyes: No vision problems and no Cataracts. Glasses/Contacts. No Glaucoma. Otolaryngeal: No hearing loss. Tinnitus. Cardiovascular: Chest pain or discomfort. No palpitations, no Hypertension, and no High Cholesterol. Pulmonary: Daytime asthma symptoms. No chronic cough. No wheezing. Gastrointestinal: No heartburn. Abdominal pain and Indigestion. No Peptic Ulcer, no GI Stomach Bleed, and no Ulcers. Acid Reflux. Endocrine: Hot flashes. No muscle weakness, no Diabetes, no Hypothyroid, and no Hyperthyroid. Hematologic: No easy bleeding. A tendency for easy bruising. No Anemia. Musculoskeletal: Arthritis and lower back pain. No soft tissue swelling. Pain localized to one or more joints. Neurological: Dizziness. No convulsions and no numbness. Psychological: Anxiety. No emotional lability, no depression, and no insomnia. Not crying for no reason. Skin: No dry skin. No Ulcers, no Scars, and no rash. Allergic and Immunologic: No complaint of seasonal allergic reaction. Physical Findings - Vitals taken 07/19/2024 08:11 am pw Height 62 in 60 - 75 Weight 150 lbs 98 - 183 Body Mass Index 27.4 kg/m2 Body Surface Area 1.7 m2 Assessment - Overweight Previous Tests Imaging: X-Ray: X-ray 07/19/2024 [facility]. Counseling/Education - Tobacco non-user - Use of tobacco assessment performed - Lose weight Care Team - KATHLEEN BHARDWAJ Health Reminders - Assess BMI satisfied 07/19/2024. - Assess Tobacco Use satisfied 07/19/2024. - Follow Up Plan BMI Management satisfied 07/19/2024.
--- OUTSIDE RECORDS SUMMARY | 2024-07-25 12:30 | XMS_ITS | Clinical Summary ---
Author Organization [facility] Address [address] [place] [address] Phone Care Team Providers Care Computer Laboratory Technician Name Role Phone KATHLEEN BHARDWAJ Primary Care Provider [phone] Juvencio Cherry MD Unavailable [phone] Reason for Visit and Chief Complaint The Chief Complaint is: low back pain Problems Includes: Problems addressed during this encounter and other active Problems Current Visit Onset Date Resolved Date Provider Marshal cross Status Lower Back Pain 07/19/2024 EDILIA CISNEROS PA-C Active Last Documented On 8:08AM ; [facility], [facility] Plan of Treatment I will get her involved with some physical therapy. She can use some hugp-rya-qffbtso Tylenol and/or NSAIDs to help manage her symptoms. We will schedule her back in 6-8 weeks for follow up. If still symptomatic then we may consider doing an injection into the left SI joint. I do not anticipate any surgical treatment for this. - Last Documented On 07/19/2024 9:36AM ; [facility], [facility] Pending Tests Order Diagnosis Results Due Ordering P rovider Therapy - Physical Therapy Lumbar Low back pain, unspecified 07/19/24 EDILIA CISNEROS PA-C Last Documented On 9:36AM ; [facility], [facility] Future Appointments Date Time Location Provi wally Follow Up 09/06/2024 9:30AM [facility] EDILIA CISNEROS PA-C Last Documented On 9:34AM ; [facility], [facility] Instructions to patient Lose weight Last Documented On 9:21AM ; [facility], [facility] Assessments Includes: Assessments from this encounter Findings - Overweight - Last Documented On 07/19/2024 9:36AM ; [facility], [facility] Sacroiliitis on the left side. - Last Documented On 07/19/2024 9:36AM ; [facility], [facility] Instructions Includes: Instructions from this encounter Instructions to patient Lose weight Last Documented On 5 9:21AM ; [facility], [facility] Medical Equipment - Implanted Devices Includes: Current Devices No Medical Equipment Recorded Medications Includes: Medications discussed during this encounter and other current Medications Current Medications (continue as prescribed) Colestipol HCl 1 GM Oral Tablet 07/19/2024 Provider: Diagnosis: Last Documented On 5 8:10AM By Hayley Villarreal ; [facility], [facility] Alendronate-Vitamin D 3 1000 IU Oral Tablet 07/19/2024 Provider: Diagnosis: Last Documented On 5 8:10AM By Hayley Villarreal ; [facility], [facility] Multi Vitamin Daily Oral Tablet 07/19/2024 Provider: Diagnosis: Last Documented On 5 8:10AM By Hayley Villarreal ; [facility], [facility] Vitamin C 1000 MG Oral Tablet 07/02/2024 Provider: KATHLEEN BHARDWAJ Diagnosis: Last Documented On 5 8:09AM By Hayley Villarreal ; [facility], [facility] DULoxetine HCl 30 MG Oral Ca psule Delayed Release Particles 06/29/2024 Provider: KATHLEEN BHARDWAJ Diagnosis: Last Documented On 5 8:09AM By Hayley Villarreal ; [facility], [facility] Amitriptyline HCl 100 MG Oral Tablet 06/26/2024 Prov ider: GORDON CONNOR II, MD Diagnosis: Last Documented On 5 8:09AM By Hayley Villarreal ; [facility], [facility] Famotidine 40 MG Oral Tablet 06/25/2024 Provider: GORDON CONNOR II, MD Diagnosis: Last Documented On 5 8:09AM By Hayley Villarreal ; [facility], [facility] Estradiol 1 MG Oral Tablet 06/18/2024 Provider: Diagnosis: Last Documented On 5 8:09AM By Hayley Villarreal ; [facility], [facility] Omeprazole 40 MG Oral Capsul e Delayed Release 06/15/2024 Provider: GORDON CONNOR II, MD Diagnosis: Last Documented On 8:09AM By Hayley Villarreal ; [facility] Medications Administered Includes: Administered Medications from this encounter No Administered Medications Recorded Vital Signs Includes: Vital Signs from this encounter Vital Name 07/19/2024 09:21A Height (in) 62 Weight (lb) 150 Body Mass Index 27.4 Body Surface Area 1.7 Note: PW Last Documented: On 07/19/2024 9:21AM ; [facility] Results Includes: Results discussed during this encounter No Results Recorded For Specified Dates History of Present Illness Includes: History of Present Illness from this encounter SG Davila is a 33 year old female. 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 This affects mainly the left hip and buttock area with some refers symptoms into the groin area. The right side does not bother. She does not have nerve root compression complaints. Social History Description Last Updated Caffeine use 07/19/2024 Last Documented On 5 9:21AM ; [facility] Exercising regularly 07/19/2024 Last Documented On 5 9:21AM ; [facility] No recent change in diet 07/19/2024 Last Documented On 5 9:21AM ; [facility] Not a current smoker. 07/19/2024 Last Documented On 9:21AM ; [facility] Not using alcohol 07/19/2024 Last Documented On 5 9:21AM ; [facility] Not using drugs 07/19/2024 Last Documented On 5 9:21AM ; [facility] Smoking Status Unknown Procedures and Surgical History Includes: Procedures from this encounter Procedures Code Diagnosis Performing Provider Service Location Service Date X-RAY EXAM OF LOWER SPINE 4-5 VIEWS 65944 Sacroiliitis, not elsewhere classified EDILIA CISNEROS PA-C [facility] 07/19/2024 Last Documented On 5 8:53AM ; [facility] X-ray 07/19/2024 LSPINE BGO [id number] Last Documented On 5 9:21AM ; [facility] Surgical History Last Updated History of History of Gallbladder 2024 Last Documented On 5 9:21AM ; [facility] History of hysterectomy 07/19/2024 Last Documented On 5 9:21AM ; [facility] Medical History Includes: Medical History addressed during this encounter Description Last Updated History of asthma 07/19/2024 Last Documented On 5 9:21AM ; [facility] Family History Includes: Family History addressed during this encounter Description Last Updated Family history of cancer 07/19/2024 Last Documented On 5 9:21AM ; [facility] Family history of heart disease 07/20/19 Last Documented On 5 9:21AM ; [facility] Review of Systems Includes: Review of Systems from this encounter Systemic: Feeling tired. No recent weight loss [...] Immunologic: No complaint of seasonal allergic reaction. Mental Status Includes: Mental Status from this encounter Description Anxiety Functional Status Includes: Functional Status from this encounter No Functional Status Recorded Physical Exam Includes: Physical Exam from this encounter Allergies Includes: Active Allergies Substance Type Reaction Onset Date Resolved Date Statu s Latex Allergy 07/19/2024 Active Last Documented On 5 9:21AM ; [facility] Encounters Encounter Provider Location Date Check-In Time Check-Out Time Diagnosis Non Physician Specified EDILIA CISNEROS PA-C [facility] 07/20/19 25 8:59AM 9:32AM Overweight Insurance Includes: Active Insurance Policies Plan Name Member ID Group # Subscriber Relationship Effect li Dates 1 - [facility] [id number] Simone Davila Self Clinical Notes Includes: Clinical Notes from this encounter * Progress note Date Encounter Last Documented by 07/19/2024 Non Physician Specified Last doc umented on 07/19/2024; 9:36 AM, EDILIA CISNEROS PA-C; [facility] Active Problems & Conditions - Lower Back [...] 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 [...] side. Previous Tests Imaging: X-Ray: X-ray 07/19/2024 EDI PONCE. Counseling/Education - Tobacco non-user - Use of tobacco assessment performed - Lose weight Plan StartCited - Low back pain, unspecified Therapy/Physical Therapy: Lumbar Instructions: See PT order attached EndCited I will get her involved with some physical therapy. She can use some [id number] Tylenol and/or NSAIDs to help manage her [...]
--- OUTSIDE RECORDS SUMMARY | 2024-07-25 12:30 | XMS_ITS | Clinical Summary ---
Author Organization [facility] Address [address] [place] [address] Phone Care Team Providers Care Dry Color Tester Name Role Phone BHARDWAJ, KATHLEEN Primary Care Provider [phone] Juvencio Cherry MD Unavailable [phone] Reason for Visit and Chief Complaint The Chief Complaint is: low back pain Problems Includes: Problems addressed during this encounter and other active Problems Current Visit Onset Date Resolved Date Provider Marshal cross Status Lower Back Pain 07/19/2024 EDILIA CISNEROS PA-C Active Last Documented On 5 8:08AM ; [facility], [facility] Plan of Treatment Future Appointments Date Time Location Provi wally Follow Up 09/06/2024 9:30AM [facility] EDILIA CISNEROS PA-C Last Documented On 5 9:34AM ; [facility], [facility] Instructions to patient Lose weight Last Documented On 5 8:14AM ; [facility], [facility] Assessments Includes: Assessments from this encounter Findings - Overweight - Last Documented On 07/19/2024 9:11AM ; [facility], [facility] Instructions Includes: Instructions from this encounter Instructions to patient Lose weight Last Documented On 5 8:14AM ; [facility], [facility] Medical Equipment - Implanted Devices Includes: Current Devices No Medical Equipment Recorded Medications Includes: Medications discussed during this encounter and other current Medications Current Medications (continue as prescribed) Colestipol HCl 1 GM Oral Tablet 07/19/2024 Provider: Diagnosis: Last Documented On 5 8:10AM By Hayley Villarreal ; [facility], [facility] Alendronate-Vitamin D 3 1000 IU Oral Tablet 07/19/2024 Provider: Diagnosis: Last Documented On 5 8:10AM By Hayley Villarreal ; [facility], [facility] Multi Vitamin Daily Oral Tablet 07/19/2024 Provider: Diagnosis: Last Documented On 5 8:10AM By Hayley Villarreal ; [facility], [facility] Vitamin C 1000 MG Oral Tablet 07/02/2024 Provider: KATHLEEN BHARDWAJ Diagnosis: Last Documented On 5 8:09AM By Hayley Villarreal ; [facility], [facility] DULoxetine HCl 30 MG Oral Ca psule Delayed Release Particles 06/29/2024 Provider: KATHLEEN BHARDWAJ Diagnosis: Last Documented On 5 8:09AM By Hayley Villarreal ; [facility], [facility] Amitriptyline HCl 100 MG Oral Tablet 06/26/2024 Prov ider: GORDON CONNOR II, MD Diagnosis: Last Documented On 5 8:09AM By Hayley Villarreal ; [facility], [facility] Famotidine 40 MG Oral Tablet 06/25/2024 Provider: GORDON CONNOR II, MD Diagnosis: Last Documented On 5 8:09AM By Hayley Villarreal ; [facility], [facility] Estradiol 1 MG Oral Tablet 06/18/2024 Provider: Diagnosis: Last Documented On 5 8:09AM By Hayley Villarreal ; [facility], [facility] Omeprazole 40 MG Oral Capsul e Delayed Release 06/15/2024 Provider: GORDON CONNOR II, MD Diagnosis: Last Documented On 5 8:09AM By Hayley Villarreal ; [facility], [facility] Medications Administered Includes: Administered Medications from this encounter No Administered Medications Recorded Vital Signs Includes: Vital Signs from this encounter Vital Name 07/19/2024 08:11A Height (in) 62 Weight (lb) 150 Body Mass Index 27.4 Body Surface Area 1.7 Note: pw Last Documented: On 07/19/2024 8:11AM ; [facility], [facility] Results Includes: Results discussed during this [...] documented Medications used for this condition: ibuprofen Social History Description Last Updated Caffeine use 07/19/2024 Last Documented On 5 9:11AM ; [facility], [facility] Exercising regularly 07/19/2024 Last Documented On 5 9:11AM ; [facility], [facility] No recent change in diet 07/19/2024 Last Documented On 5 9:11AM ; [facility], [facility] Not a current smoker. 07/19/2024 Last Documented On 5 9:11AM ; [facility], [facility] Not using alcohol 07/19/2024 Last Documented On 5 9:11AM ; [facility] Not using drugs 07/19/2024 Last Documented On 5 9:11AM ; [facility], [facility] Smoking Status Unknown Procedures and Surgical History Includes: Procedures from this encounter Procedures Code Diagnosis Performing Provider Service L ocation Service Date X-ray 07/19/2024 LSPINE O [id number] Last Documented On 5 9:10AM ; [facility], [facility] Surgical History Last Updated History of History of Gallbladder 2024 Last Documented On 5 9:11AM ; [facility], [facility] History of hysterectomy 07/19/2024 Last Documented On 5 9:11AM ; [facility], [facility] Medical History Includes: Medical History addressed during this encounter Description Last Updated History of asthma 07/19/2024 Last Documented On 5 9:11AM ; [facility], [facility] Family History Includes: Family History addressed during this encounter Description Last Updated Family history of cancer 07/19/2024 Last Documented On 5 9:11AM ; [facility], [facility] Family history of heart disease 07/20/19 Last Documented On 5 9:11AM ; [facility] Review of Systems Includes: Review of [...] 07/19/2024 Active Last Documented On 9:21AM ; [facility] Encounters Encounter Provider Location Date Check-In Time Check-Out Time Diagnosis Intake EDILIA CISNEROS PA-C 07/19/2024 8:08AM 11:59PM Overweight Insurance Includes: Active Insurance Policies Plan Name Member ID Group # Subscriber Relationship Effect li Dates 1 - [facility] [id number] Simone Davila Self Clinical Notes Includes: Clinical Notes from this encounter * Progress note Date Encounter Last Documented by 07/19/2024 Intake Last documented on 07/19/2024; 9:11 AM, EDILIA CISNEROS PA-C; [facility] Active Problems & Conditions - Lower [...] Overweight Previous Tests Imaging: X-Ray: X-ray 07/19/2024 EDI PONCE. Counseling/Education - Tobacco non-user - Use of tobacco assessment performed - Lose weight Care Team - KATHLEEN BHARDWAJ Health Reminders - Assess BMI satisfied 07/19/2024. - Assess Tobacco Use satisfied 07/19/2024. - Follow Up Plan BMI Management satisfied 07/19/2024.
== END 2024-07-24 23:59 | disposition home or self-care (01) ==
LOC: LAB.DROPOF 07-25 12:29
PROVIDERS: PCP Nurse Practitioner Family; Visit Provider Nurse Practitioner Family
DX: R35.0 Frequency of micturition (principal); N39.0 Urinary tract infection, site not specified
CPT/HCPCS: 80053; 85025; 87086

== ENCOUNTER 2024-08-02 08:14 | Outpatient (CLI) | payer MEDICAID, SELFPAY ==
--- OUTSIDE RECORDS SUMMARY | 2024-08-02 08:17 | XMS_ITS | Clinical Summary ---
Author Organization [facility] , [facility] Address [address] [place] [address] Phone Care Team Providers Care Boatswains Mate Name Role Phone KATHLEEN BHARDWAJ Primary Care Provider [phone] Juvencio Cherry MD Unavailable [phone] Reason for Visit and Chief Complaint The Chief Complaint is: low back pain Problems Includes: Problems addressed during this encounter and other active Problems Current Visit Onset Date Resolved Date Provider Marshal cross Status Lower Back Pain 07/19/2024 EDILIA CISNEROS PA-C Active Last Documented On 8:08AM ; [facility], [facility] Plan of Treatment I will get her involved with some physical therapy. She can use some [id number] Tylenol and/or NSAIDs to help manage her symptoms. We will schedule her back in 6-8 weeks for follow up. If still symptomatic then we may consider doing an injection into the left SI joint. I do not anticipate any surgical treatment for this. - Last Documented On 07/19/2024 9:36AM ; [facility], [facility] Pending Tests Order Diagnosis Results Due Ordering P rovider Therapy - Physical Therapy Lumbar Low back pain, unspecified 07/19/24 EDILIA CISNEROS PA-C Last Documented On 9:36AM ; [facility], [facility] Future Appointments Date Time Location Provi wally Follow Up 09/06/2024 9:30AM [facility] EDILIA CISNEROS PA-C Last Documented On 9:34AM ; [facility], [facility] Instructions to patient Lose weight Last Documented On 9:21AM ; [facility], [facility] Assessments Includes: Assessments from this encounter Findings - Overweight - Last Documented On 07/19/2024 9:36AM ; [facility], [facility] Sacroiliitis on the left side. - Last Documented On 07/19/2024 9:36AM ; [facility], [facility] Instructions Includes: Instructions from this encounter Instructions to patient Lose weight Last Documented On 5 9:21AM ; [facility], [facility] Medical Equipment - Implanted Devices Includes: Current Devices No Medical Equipment Recorded Medications Includes: Medications discussed during this encounter and other current Medications Current Medications (continue as prescribed) Colestipol HCl 1 GM Oral Tablet 07/19/2024 Provider: Diagnosis: Last Documented On 5 8:10AM By Hayley Villarreal ; [facility], [facility] Alendronate-Vitamin D 3 1000 IU Oral Tablet 07/19/2024 Provider: Diagnosis: Last Documented On 5 8:10AM By Hayley Villarreal ; [facility], [facility] Multi Vitamin Daily Oral Tablet 07/19/2024 Provider: Diagnosis: Last Documented On 5 8:10AM By Hayley Villarreal ; [facility], [facility] Vitamin C 1000 MG Oral Tablet 07/02/2024 Provider: KATHLEEN BHARDWAJ Diagnosis: Last Documented On 5 8:09AM By Hayley Villarreal ; [facility], [facility] DULoxetine HCl 30 MG Oral Ca psule Delayed Release Particles 06/29/2024 Provider: KATHLEEN BHARDWAJ Diagnosis: Last Documented On 5 8:09AM By Hayley Villarreal ; [facility], [facility] Amitriptyline HCl 100 MG Oral Tablet 06/26/2024 Prov ider: GORDON CONNOR II, MD Diagnosis: Last Documented On 5 8:09AM By Hayley Villarreal ; [facility], [facility] Famotidine 40 MG Oral Tablet 06/25/2024 Provider: GORDON CONNOR II, MD Diagnosis: Last Documented On 5 8:09AM By Hayley Villarreal ; [facility], [facility] Estradiol 1 MG Oral Tablet 06/18/2024 Provider: Diagnosis: Last Documented On 5 8:09AM By Hayley Villarreal ; [facility], [facility] Omeprazole 40 MG Oral Capsul e Delayed [...] Documented: On 07/19/2024 9:21AM ; [facility] Results Includes: Results discussed during this encounter [...] 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 [...] Documented On 5 9:21AM ; [facility] No recent change in diet 07/19/2024 Last Documented On 5 9:21AM ; [facility] Not a current smoker. 07/19/2024 Last Documented On 9:21AM ; [facility] Not using alcohol 07/19/2024 Last Documented On 5 9:21AM ; [facility] Not using drugs 07/19/2024 Last Documented On 5 9:21AM ; [facility] Smoking Status Unknown Procedures and Surgical History Includes: Procedures from this encounter Procedures Code Diagnosis Performing Provider Service Location Service Date X-RAY EXAM OF LOWER SPINE 4-5 VIEWS [id number] Sacroiliitis, not elsewhere classified EDILIA CISNEROS PA-C [facility] 07/19/2024 Last Documented On 5 8:53AM ; [facility] X-ray 07/19/2024 LSPINE BGO [id number] Last Documented On 5 9:21AM ; [facility] Surgical History Last Updated History of History of Gallbladder 2024 Last Documented On 5 9:21AM ; [facility] History of hysterectomy 07/19/2024 Last Documented On 5 9:21AM ; [facility] Medical History Includes: Medical History addressed during this encounter Description Last Updated History of asthma 07/19/2024 Last Documented On 5 9:21AM ; [facility] Family History Includes: Family History addressed during this encounter Description Last Updated Family history of cancer 07/19/2024 Last Documented On 5 9:21AM ; [facility] Family history of heart disease 07/20/19 Last Documented On 5 9:21AM ; [facility] Review of Systems Includes: Review of Systems [...] Active Last Documented On 5 9:21AM ; [facility] Encounters Encounter Provider Location Date Check-In Time Check-Out Time Diagnosis Non Physician Specified EDILIA CISNEROS PA-C [facility] 07/20/19 25 8:59AM 9:32AM Overweight Insurance Includes: Active Insurance Policies Plan Name Member ID Group # Subscriber Relationship Effect li Dates 1 - [facility] [id number] Simone Davila Self Clinical Notes Includes: Clinical Notes from this encounter * Progress note Date Encounter Last Documented by 07/19/2024 Non Physician Specified Last doc umented on 07/19/2024; 9:36 AM, EDILIA CISNEROS PA-C; [facility] Active Problems & Conditions - [...] 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 [...] some physical therapy. She can use some [id number] Tylenol and/or NSAIDs to help manage her [...]
--- OUTSIDE RECORDS SUMMARY | 2024-08-02 08:17 | XMS_ITS | Clinical Summary ---
Author Organization [facility] , [facility] Address [address] [place] [address] Phone Care Team Providers Care Theater Technician Name Role Phone BHARDWAJ, KATHLEEN Primary Care Provider [phone] Juvencio Cherry MD Unavailable [phone] Reason for Visit and Chief Complaint The Chief Complaint is: low back pain Problems Includes: Problems addressed during this encounter and other active Problems Current Visit Onset Date Resolved Date Provider Marshal cross Status Lower Back Pain 07/19/2024 EDILIA CISNEROS PA-C Active Last Documented On 5 8:08AM ; [facility], [facility] Plan of Treatment Future Appointments Date Time Location Provi wally Follow Up 09/06/2024 9:30AM [facility] EDILIA CISNEROS PA-C Last Documented On 5 9:34AM ; [facility], [facility] Instructions to patient Lose weight Last Documented On 5 8:14AM ; [facility], [facility] Assessments Includes: Assessments from this encounter Findings - Overweight - Last Documented On 07/19/2024 9:11AM ; [facility], [facility] Instructions Includes: Instructions from this encounter Instructions to patient Lose weight Last Documented On 5 8:14AM ; [facility], [facility] Medical Equipment - Implanted Devices Includes: Current Devices No Medical Equipment Recorded Medications Includes: Medications discussed during this encounter and other current Medications Current Medications (continue as prescribed) Colestipol HCl 1 GM Oral Tablet 07/19/2024 Provider: Diagnosis: Last Documented On 5 8:10AM By Hayley Villarreal ; [facility], [facility] Alendronate-Vitamin D 3 1000 IU Oral Tablet 07/19/2024 Provider: Diagnosis: Last Documented On 5 8:10AM By Hayley Villarreal ; [facility], [facility] Multi Vitamin Daily Oral Tablet 07/19/2024 Provider: Diagnosis: Last Documented On 5 8:10AM By Hayley Villarreal ; [facility], [facility] Vitamin C 1000 MG Oral Tablet 07/02/2024 Provider: KATHLEEN BHARDWAJ Diagnosis: Last Documented On 5 8:09AM By Hayley Villarreal ; [facility], [facility] DULoxetine HCl 30 MG Oral Ca psule Delayed Release Particles 06/29/2024 Provider: KATHLEEN BHARDWAJ Diagnosis: Last Documented On 5 8:09AM By Hayley Villarreal ; [facility], [facility] Amitriptyline HCl 100 MG Oral Tablet 06/26/2024 Prov ider: GORDON CONNOR II, MD Diagnosis: Last Documented On 5 8:09AM By Hayley Villarreal ; [facility], [facility] Famotidine 40 MG Oral Tablet 06/25/2024 Provider: GORDON CONNOR II, MD Diagnosis: Last Documented On 5 8:09AM By Hayley Villarreal ; [facility], [facility] Estradiol 1 MG Oral Tablet 06/18/2024 Provider: Diagnosis: Last Documented On 5 8:09AM By Hayley Villarreal ; [facility], [facility] Omeprazole 40 MG Oral Capsul e Delayed Release 06/15/2024 Provider: GORDON CONNOR II, MD Diagnosis: Last Documented On 5 8:09AM By Hayley Villarreal ; [facility], [facility] Medications Administered Includes: Administered Medications from this encounter No Administered Medications Recorded Vital Signs Includes: Vital Signs from this encounter Vital Name 07/19/2024 08:11A Height (in) 62 Weight (lb) 150 Body Mass Index 27.4 Body Surface Area 1.7 Note: pw Last Documented: On 07/19/2024 8:11AM ; [facility], [facility] Results Includes: Results discussed during [...] 07/19/2024 Last Documented On 5 9:11AM ; [facility], [facility] Exercising regularly 07/19/2024 Last Documented On 5 9:11AM ; [facility], [facility] No recent change in diet 07/19/2024 Last Documented On 5 9:11AM ; [facility], [facility] Not a current smoker. 07/19/2024 Last Documented On 5 9:11AM ; [facility], [facility] Not using alcohol 07/19/2024 Last Documented On 5 9:11AM ; [facility] Not using drugs 07/19/2024 Last Documented On 5 9:11AM ; [facility], [facility] Smoking Status Unknown Procedures and Surgical History Includes: Procedures from this encounter Procedures Code Diagnosis Performing Provider Service L ocation Service Date X-ray 07/19/2024 LSPINE O [id number] Last Documented On 5 9:10AM ; [facility], [facility] Surgical History Last Updated History of History of Gallbladder 2024 Last Documented On 5 9:11AM ; [facility], [facility] History of hysterectomy 07/19/2024 Last Documented On 5 9:11AM ; [facility], [facility] Medical History Includes: Medical History addressed during this encounter Description Last Updated History of asthma 07/19/2024 Last Documented On 5 9:11AM ; [facility], [facility] Family History Includes: Family History addressed during this encounter Description Last Updated Family history of cancer 07/19/2024 Last Documented On 5 9:11AM ; [facility], [facility] Family history of heart disease 07/20/19 Last Documented On 5 9:11AM ; [facility] Review of Systems Includes: Review of [...] 07/19/2024 Active Last Documented On 9:21AM ; [facility] Encounters Encounter Provider Location Date Check-In Time Check-Out Time Diagnosis Intake EDILIA CISNEROS PA-C 07/19/2024 8:08AM 11:59PM Overweight Insurance Includes: Active Insurance Policies Plan Name Member ID Group # Subscriber Relationship Effect li Dates 1 - [facility] [id number] Simone Davila Self Clinical Notes Includes: Clinical Notes from this encounter * Progress note Date Encounter Last Documented by 07/19/2024 Intake Last documented on 07/19/2024; 9:11 AM, EDILIA CISNEROS PA-C; [facility] Active Problems & Conditions - Lower [...]
--- OUTSIDE RECORDS SUMMARY | 2024-08-02 08:17 | XMS_ITS ---
Care Plan - [facility], [facility] Created on: August 02, 2024 Simone Davila : 1990 Sex: Female Author Organization [facility] Address [address] [place] [address] Phone Care Team Providers Care Button Inspector Name Role Phone KATHLEEN BHARDWAJ Primary Care Provider [phone] Dilip REYES, Juvencio Cummins Unavailable [phone]
--- OUTSIDE RECORDS SUMMARY | 2024-08-02 08:17 | XMS_ITS ---
Author Organization [facility] Address [address] [place] [address] Phone Care Team Providers Care Industrial Machine Operator Name Role Phone TRACIE BHARDWAJNIE Primary Care Provider [phone] Juvencio Cherry MD Unavailable [phone] Problems Includes: Active, inactive, and resolved Problems All Visits Onset Date Resolved Date Provider Condition S tatus Lower Back Pain 07/19/2024 EDILIA CISNEROS PA-C Active Last Documented On 5 8:08AM ; [facility], [facility] Plan of Treatment Future Appointments Date Time Location Provi wally Follow Up 09/06/2024 9:30AM [facility] [place] EDILIA CISNEROS PA-C Last Documented On 5 9:34AM ; [facility], [facility] Instructions to patient Lose weight Last Documented On 5 9:21AM ; [facility], [facility] Lose weight Last Documented On 5 8:14AM ; [facility], [facility] Assessments Includes: Assessments for all patient encounters Findings Encounter Date Overweight Intake with EDILIA CISNEROS PA-C 07/19/2024 Last Documented On 5 9:11AM ; [facility], [facility] Overweight Non Physician Specified with SPENSER CISNEROS PA-C 07/19/2024 Last Documented On 5 9:36AM ; [facility], [facility] Instructions Includes: Instructions for all patient encounters Instructions to patient Lose weight Last Documented On 5 9:21AM ; [facility], [facility] Lose weight Last Documented On 5 8:14AM ; [facility] Medical Equipment - Implanted Devices Includes: Current and historical Devices No Medical Equipment Recorded Medications Includes: Current and historical Medications Current Medications (continue as prescribed) Colestipol HCl 1 GM Oral Tablet 07/19/2024 Provider: Diagnosis: Last Documented On 5 8:10AM By Hayley Villarreal ; [facility] Alendronate-Vitamin D 3 1000 IU Oral Tablet 07/19/2024 Provider: Diagnosis: Last Documented On 5 8:10AM By Hayley Villarreal ; [facility], [facility] Multi Vitamin Daily Oral Tablet 07/19/2024 Provider: Diagnosis: Last Documented On 5 8:10AM By Hayley Villarreal ; [facility] Vitamin C 1000 MG Oral Tablet 07/02/2024 Provider: KATHLEEN BHARDWAJ Diagnosis: Last Documented On 5 8:09AM By Hayley Villarreal ; [facility] DULoxetine HCl 30 MG Oral Ca psule Delayed Release Particles 06/29/2024 Provider: KATHLEEN BHARDWAJ Diagnosis: Last Documented On 5 8:09AM By Hayley Villarreal ; [facility] Amitriptyline HCl 100 MG Oral Tablet 06/26/2024 Prov ider: GORDON CONNOR II, MD Diagnosis: Last Documented On 5 8:09AM By Hayley Villarreal ; [facility] Famotidine 40 MG Oral Tablet 06/25/2024 Provider: GORDON CONNOR II, MD Diagnosis: Last Documented On 5 8:09AM By Hayley Villarreal ; [facility] Estradiol 1 MG Oral Tablet 06/18/2024 Provider: Diagnosis: Last Documented On 5 8:09AM By Hayley Villarreal ; [facility] Omeprazole 40 MG Oral Capsul e Delayed Release 06/15/2024 Provider: GORDON CONNOR II, MD Diagnosis: Last Documented On 5 8:09AM By Hayley Villarreal ; [facility] Medications Administered Includes: Administered Medications in patient's chart No Administered Medications Recorded Vital Signs Includes: Vital Signs from 08/03/2023 through 08/02/2024 Vital Name 07/19/2024 09:21A 07/19/2024 08: 11A Height (in) 62 62 Weight (lb) 150 150 Body Mass Index 27.4 27.4 Body Surface Area 1.7 1.7 Note: PW pw Last Documented: On 07/19/2024 9:21AM ; [facility] On 07/19/2024 8:11AM ; [facility] Results Includes: Results from 08/03/2023 through 08/02/2024 No Results Recorded For Specified Dates History of Present Illness History of Present Illness not supported for this document type No History of Present Illness Recorded Social History Description Last Updated Caffeine use 07/19/2024 Last Documented On 5 9:11AM ; [facility] Exercising regularly 07/19/2024 Last Documented On 5 9:11AM ; [facility] No recent change in diet 07/19/2024 Last Documented On 5 9:11AM ; [facility], [facility] Not a current smoker. 07/19/2024 Last Documented On 5 9:11AM ; [facility] Not using alcohol 07/19/2024 Last Documented On 5 9:11AM ; [facility] Not using drugs 07/19/2024 Last Documented On 5 9:11AM ; [facility] Smoking Status Unknown Procedures and Surgical History Includes: Procedures from 08/03/2023 through 08/02/2024 Procedures Code Diagnosis Performing Provider Service Location Service Date X-RAY EXAM OF LOWER SPINE 4-5 VIEWS [id number] Sacroiliitis, not elsewhere classified EDILIA CISNEROS PA-C [facility] 07/19/2024 Last Documented On 5 8:53AM ; [facility] Surgical History Last Updated History of History of Gallbladder 2024 Last Documented On 5 9:11AM ; [facility] History of hysterectomy 07/19/2024 Last Documented On 5 9:11AM ; [facility] Medical History Includes: Medical History in patient's chart Description Last Updated History of asthma 07/19/2024 Last Documented On 5 9:11AM ; [facility] Family History Includes: Family History in patient's chart Description Last Updated Family history of cancer 07/19/2024 Last Documented On 5 9:11AM ; [facility] Family history of heart disease 07/20/19 25 Last Documented On 5 9:11AM ; [facility] Review of Systems Review of Systems [...] 07/19/2024 Active Last Documented On 9:21AM ; [facility] Encounters Includes: Encounters from 08/03/2023 through 08/02/2024 Encounter Provider Location Date Check-In Time Check-Out Time Diagnosis Non Physician Specified EDILIA CISNEROS PA-C [facility] 07/20/19 8:59AM 9:32AM Overweight Intake EDILIA CISNEROS PA-C 07/20/19 8:08AM 11:59PM Overweight Insurance Includes: Active Insurance Policies Plan Name Member ID Group # Subscriber Relationship Effect li Dates 1 - [facility] [id number] Simone Davila Self Clinical Notes Includes: Signed Clinical Notes starting from 03/25/2022 * Progress note Date Encounter Last Documented by 07/19/2024 Non Physician Specified Last doc umented on 07/19/2024; 9:36 AM, EDILIA CISNEROS PA-C; [facility] Active Problems & Conditions - Lower [...] 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 [...] side. Previous Tests Imaging: X-Ray: X-ray 07/19/2024 [facility]. Counseling/Education - Tobacco non-user - Use of tobacco assessment performed - Lose weight Plan StartCited - Low back pain, unspecified Therapy/Physical Therapy: Lumbar Instructions: See PT order attached EndCited I will get her involved with some physical therapy. She can use some [id number] Tylenol and/or NSAIDs to help manage her [...] on 07/19/2024; 9:11 AM, EDILIA CISNEROS PA-C; [facility], [facility] Active Problems & Conditions - [...] Overweight Previous Tests Imaging: X-Ray: X-ray 07/19/2024 [facility]. Counseling/Education - Tobacco non-user - Use of tobacco assessment performed - Lose weight Care Team - KATHLEEN BHARDWAJ Health Reminders - Assess BMI satisfied 07/19/2024. - Assess Tobacco Use satisfied 07/19/2024. - Follow Up Plan BMI Management satisfied 07/19/2024.
--- NOTE | 2024-08-02 08:30 | US_ITS ---
FINAL REPORT TECHNIQUE: Sonographic images of the right upper quadrant were obtained. CLINICAL HISTORY: Elevated liver enzymes postcholecystectomy COMPARISON: None FINDINGS: PANCREAS: The tail is obscured. The head is unremarkable. LIVER: Homogeneous. No focal hepatic lesion. The portal vein is patent with normal directional flow. GALLBLADDER: The gallbladder is absent. COMMON DUCT: 4 mm. Normal for age. RIGHT KIDNEY: The right kidney measures 10.1 cm. There is no hydronephrosis, mass, or stone. FREE FLUID: None. IMPRESSION: Unremarkable ultrasound of the right upper quadrant after cholecystectomy. Reviewed, Interpreted and Dictated by Brianda Estrella MD Transcribed by Hayley Hatfield Authenticated and [facility]
== END 2024-08-02 23:59 | disposition home or self-care (01) ==
LOC: RAD 08:15
PROVIDERS: PCP Nurse Practitioner Family; Visit Provider Nurse Practitioner Family
DX: R74.8 Abnormal levels of other serum enzymes (principal); Z98.890 Other specified postprocedural states
CPT/HCPCS: 76705

== ENCOUNTER 2024-08-06 10:00 | Outpatient (RCR) | payer MEDICAID, SELFPAY | END 2024-08-06 23:59 | disposition home or self-care (01) | LOC: PT 10:00 | PROVIDERS: PCP Nurse Practitioner Family; Visit Provider Physician Assistant | DX: M16.12 Unilateral primary osteoarthritis, left hip (principal) | CPT/HCPCS: 97110; 97163; 97530 ==

== ENCOUNTER 2024-08-15 15:09 | Outpatient (CLI) | payer MEDICAID, SELFPAY ==
--- NOTE | 2024-08-15 15:11 | XR_ITS ---
FINAL REPORT CLINICAL HISTORY: pain COMPARISON: None FINDINGS: 3 views of the right shoulder were obtained. There is no fracture or dislocation. The joint space is preserved. Soft tissues are unremarkable. IMPRESSION: No acute osseous abnormality of the right shoulder. Reviewed, Interpreted and Dictated by Brianda Estrella MD Transcribed by Jennifer Salmeron Authenticated and . [facility]
[2024-08-15 17:37] LABS: Alanine Aminotransferase 85 U/L (12-78); Albumin Level 4.9 g/dl (3.5-5.0); Alkaline Phosphatase 85 U/L (38-126); Aspartate Amino Transferase 81 U/L (14-36); Bilirubin,Direct 0.2 mg/dl (0.0-0.4); Bilirubin,Indirect 0.2 mg/dL (0.0-0.9); Bilirubin,Total 0.4 mg/dl (0.2-1.3); Bilirubin,Unconjugated 0.2 mg/dL (0.0-1.1); Total Protein,Serum 6.9 g/dl (6.3-8.2)
== END 2024-08-15 23:59 | disposition home or self-care (01) ==
LOC: RAD 15:10
PROVIDERS: PCP Nurse Practitioner Family; Visit Provider Nurse Practitioner Family
DX: M25.511 Pain in right shoulder (principal); R74.8 Abnormal levels of other serum enzymes
CPT/HCPCS: 73030; 80076

== ENCOUNTER 2024-08-28 08:28 | Outpatient (CLI) | payer MEDICAID, SELFPAY ==
[2024-08-30 15:33] LABS: Pancreatic Elastase, Fecal >800 (>200)
== END 2024-08-28 23:59 | disposition home or self-care (01) ==
LOC: LAB 08:29
PROVIDERS: PCP Nurse Practitioner Family; Visit Provider Nurse Practitioner Family
DX: R14.0 Abdominal distension (gaseous) (principal)
CPT/HCPCS: 82656

== ENCOUNTER 2024-09-06 08:00 | Outpatient (RCR) | payer MEDICAID, SELFPAY | END 2024-09-06 23:59 | disposition home or self-care (01) | LOC: PT 08:00 | PROVIDERS: PCP Nurse Practitioner Family; Visit Provider Physician Assistant | DX: M46.1 Sacroiliitis, not elsewhere classified (principal) | CPT/HCPCS: 97014; 97035; 97110; 97164; G0283 ==

== ENCOUNTER 2024-09-18 10:02 | Outpatient (CLI) | payer MEDICAID, SELFPAY ==
--- OUTSIDE RECORDS SUMMARY | 2024-09-18 10:06 | XMS_ITS | Encounter Summary ---
Author Organization Healthcare Address [address] [place] [address] Care Team Providers Care Technical Publications Writer Name Role Phone Marsha Mora APRN Primary Care Provider [phone] Sharmin Awad APRN Primary Care Provider [phone] Encounter Details Date Type Department Care Team ([facility] st Contact Info) Description 04/11/2022 Outside Procedure External Location [address] [place] [address] Provider, Nithin Gaston Social History Tobacco Use Types Packs/Day Years Used Date Smoking Tobacco: Former Cigarettes 1 11.1 2 010 - 05/13/2020 Smokeless Tobacco: Never Alcohol Use Standard Drinks/Week Comments Yes 0 (1 standard drink = 0.6 oz pur e alcohol) Humiliation, Afraid, Rape, and Kick questionnair e Answer Date Recorded Within the last year, have y ou been afraid of your partner or ex-partner? No 10/15/2020 Within the last year, have y ou been humiliated or emotionally abused in other ways by your partner or ex-partner? No Within the last year, have y ou been kicked, hit, slapped, or otherwise physically hurt by your partner or ex-partner? No 10/15/2020 Within the last year, have y ou been raped or forced to have any kind of sexual activity by your partner or ex-partner? No 10/15/2020 Social Connection and Isolation Panel Answer Date Recorded In a typical week, how many times do you talk on the phone with family, friends, or neighbors? More than three times a week 10/15/2020 How often do you get togethe r with friends or relatives? Once a week 10/15/2020 How often do you attend chur ch or taoism services? Never 10/15/2020 Do you belong to any clubs o r organizations such as restoration groups, unions, fraternal or athletic groups, or school groups? No 10/15/2020 How often do you attend meet ings of the clubs or organizations you belong to? Never 10/15/2020 Are you , , di vorced, , never , or living with a partner? 10/15/2020 AUDIT-C Answer Date Recorded Q1: How often do you have a drink containing alc ohol? 2-4 times a month 10/15/2020 Q2: How many drinks containi ng alcohol do you have on a typical day when you are drinking? 1 or 2 10/15/2020 Q3: How often do you have si x or more drinks on one occasion? Never 10/15/2020 Overall Financial Resource Strain (CARDIA) Answe r Date Recorded How hard is it for you to pa y for the very basics like food, housing, medical care, and heating? Not hard at all 10/15/2020 PHQ-2 Answer Date Recorded Patient Health Questionnaire-2 Score 4 11/26/2021 [facility] - Occupational Stress Questionnaire Answer Date Recorded Do you feel stress - tense, restless, nervous, or anxious, or unable to sleep at night because your mind is troubled all the time - these days? Only a little 10/15/2020 Exercise Vital Sign Answer Date Recorde d On average, how many days pe r week do you engage in moderate to strenuous exercise (like a brisk walk)? 0 days 10/15/2020 On average, how many minutes do you engage in exercise at this level? 0 min 10/15/2020 Hunger Vital Sign Answer Date Recorded Within the past 12 months, y ou worried that your food would run out before you got the money to buy more. Never true 10/16/19 21 Within the past 12 months, t he food you bought just didn't last and you didn't have money to get more. Never true 10/15/2020 PRAPARE - Transportation Answer Date Re corded In the past 12 months, has l ack of transportation kept you from medical appointments or from getting medications? No 10/2020 In the past 12 months, has l ack of transportation kept you from meetings, work, or from getting things needed for daily living? No 10/15/2020 Housing Stability Vital Sign Answer Dick e Recorded In the last 12 months, was t here a time when you were not able to pay the mortgage or rent on time? No 10/15/2020 Number of Places Lived in the Last Year Not on f ile 10/15/2020 In the last 12 months, was t here a time when you did not have a steady place to sleep or slept in a long-term (including now)? No 10/15/2020 Comments No Sex and Gender Information Value Date Recorded Sex Assigned at Female 02/04/2022 8:54 AM EDT Legal Sex Female 6:31 PM EDT Gender Identity Female 02/04/2022 8:54 AM EDT Sexual Orientation Straight 02/04/2022 8: 54 AM EDT COVID-19 Exposure Response Date Recorded In the last 10 days, have yo u been in contact with someone who was confirmed or suspected to have Coronavirus/COVID-19? No / Unsure 04/07/2022 3:41 PM EST documented as of this encounter Plan of Treatment Upcoming Encounters Date Type Department Care Team (Late st Contact Info) Description 11/14/2024 2:10 PM EDT Office Visit [facility] [address] [place] [address] Ginny Quan M, SORAIDA [address] [place] [address] documented as of this encounter Procedures Procedure Name Priority Date/Time Associated Diagnosis Comments XR CHEST 1 VIEW 04/11/2022 4:09 PM EST documented in this encounter Results * XR Chest 1 View (04/11/2022 4:09 PM EST) Anatomical Region Laterality Modality Chest Digital Radiogra phy 04/11/2022 4:09 PM EST Narrative 04/12/2022 8:53 [place] [address] Name: JAMES RAMOS Exam Date: 04/11/2022 : 1990 Age 31 Gender: F Physician: HERBERT HERNANDEZ Facility: [facility] Facility HSV: Outpatient Exam: CHEST PORTABLE PORTABLE CHEST HISTORY: Shortness of breath COMPARISON: None The heart is normal in size. The mediastinum is unremarkable. The lungs are clear. There is no pneumothorax. There is no acute osseous abnormality. IMPRESSION: No acute cardiopulmonary process. Dictated By: JAMES GOSS Transcribed By: James Goss Transcribed On: 04/12/2022 8:42 AM Electronically signed by: JAMES GOSS 04/12/2022 Thank you for referring JAMES RAMOS to [facility]. Legally authenticated by POPE JAMES Arias 2022-04-12 08:42:01 Procedure Note Provider, Generic Gaston - 04/12/2022 [place] [address] Name: JAMES RAMOS Exam Date: 04/11/2022 : 1990 Age 31 Gender: F Physician: HERBERT HERNANDEZ Facility: [facility] Facility HSV: Outpatient Exam: CHEST PORTABLE PORTABLE CHEST HISTORY: Shortness of breath COMPARISON: None The heart is normal in size. The mediastinum is unremarkable. The lungsare clear. There is no pneumothorax. There is no acute osseous abnormality. IMPRESSION: No acute cardiopulmonary process. Dictated By: JAMES GOSS Transcribed By: James Goss Transcribed On: 04/12/2022 8:42 AM Electronically signed by: JAMES GOSS 04/12/2022 Thank you for referring JAMES RAMOS to [facility]. Legally authenticated by POPE JAMES Arias 2022-04-12 08:42:01 us Generic Gaston Provider IMG XR PROCEDURES Fi nal Result documented in this encounter Visit Diagnoses Not on filedocumented in this encounter Additional Health Concerns Infection Onset Date Last Indicated Resolved Time C. difficile Rule-Out 12/20/2023 12/20/20232023 5:23 AM EDT Assessment Noted Time PHQ-9 Depression Total Score: 14 022 9:46 AM EDT A fall risk assessment has been complete d for the patient 11/26/2021 9:47 AM EDT documented as of this encounter Care Teams Technical Publications Writer Relationship Specialty Start Date End Date Marsha Mora APRN [address] [place] [address] PCP - General 08/22/20 10/17/22 Sharmin Awad APRN [address] [place] [phone] PCP - General Family Medicine 10/18/22 documented as of this encounter
--- OUTSIDE RECORDS SUMMARY | 2024-09-18 10:06 | XMS_ITS | Encounter Summary ---
Author Organization Healthcare Address [address] [place] [address] Care Team Providers Care Senior Etl Developer Name Role Phone AbbyMarsha APRN Primary Care Provider [phone] Sharmin Awad APRN Primary Care Provider [phone] Encounter Details Date Type Department Care Team ([facility] st Contact Info) Description 08/09/2022 Outside Procedure External Location [address] [place] [address] Adarsh Gan MD [address] [place] [address] Social History Tobacco Use Types Packs/Day Years [...] often do you attend chur ch or temple services? Never 10/15/2020 Do you belong to any clubs o r organizations such as protestant groups, unions, fraternal or athletic groups, or [...] Answer Date Recorded Patient Health Questionnaire-2 Score 0 07/29/2022 [facility] Answer Date Recorded [...] place to sleep or slept in a alf (including now)? No 10/15/2020 Comments No Sex [...] suspected to have Coronavirus/COVID-19? No / Unsure 07/28/2022 10:27 AM EDT documented as of this encounter Plan of Treatment Upcoming Encounters Date Type Department Care Team (Late st Contact Info) Description 11/14/2024 2:10 PM EDT Office Visit [facility] [address] [place] [address] Ginny Quan, CNC MILL OPERATOR [address] [place] [address] documented as of this encounter Procedures Procedure Name Priority Date/Time Associated Diagnosis Comments CT ABDOMEN PELVIS W IV CONTRAST 08/09/2022 1:11 PM EDT documented in this encounter Results * CT Abdomen Pelvis w IV Contrast (08/09/2022 1:11 PM EDT) Anatomical Region Laterality Modality Abdomen, Pelvis Computed Tomogra phy 08/09/2022 1:11 PM EDT Narrative 08/09/2022 3:00 PM EDT [address] [address] Name: JAMES RAMOS Exam Date: 08/09/2022 : 1990 Age 31 Gender: F Physician: ADARSH GAN Facility: [facility] Facility HSV: Outpatient Exam: CT ABD PEL W/ (IV ORAL) CT abdomen and pelvis with IV contrast History: Right lower quadrant pain and history of abscess. Findings: Exam was performed with oral and IV contrast and utilizing techniques to keep radiation dose as low as reasonably achievable. Comparison date is 05/07/22. There is mild fatty liver. There are no focal liver lesions. There are cholecystectomy clips. There is no bile duct dilatation. Spleen, pancreas and adrenal glands appear normal. Partially filled bladder appears normal. Suggestion of bilateral ovarian cysts. There is minimal free pelvic fluid. There is no large or small bowel dilatation. Contrast has reached the level of the proximal to mid transverse colon. There is no bowel wall thickening or inflammatory change. There is a small fat-containing umbilical hernia. There are no renal lesions or hydronephrosis. Impression: No abnormality of bowel identified. Findings suggest ovarian cyst. Follow-up pelvic ultrasound may be useful. Dictated By: ADA MERCADO Transcribed By: sneha pace Transcribed On: 08/09/2022 2:03 PM Electronically signed by: ADA MERCADO 08/09/2022 Thank you for referring JAMES RAMOS to [facility]. Legally authenticated by JESS CABALLERO 2022-08-09 14:49:49 Procedure Note Provider, [facility] - 08/09/2022 [place] [id number] Name: JAMES RAMOS Exam Date: 08/09/2022 : 1990 Age 31 Gender: F Physician: ADARSH GAN Facility: [facility] Facility HSV: Outpatient Exam: CT ABD PEL W/ (IV ORAL) CT abdomen and pelvis with IV contrast History: Right lower quadrant pain and history of abscess. Findings: Exam was performed with oral and IV contrast and utilizing techniques to keep radiation dose as low as reasonably achievable.Comparison date is 05/07/22. There is mild fatty liver. There are no focal liver lesions. There are cholecystectomy clips. There is no bile duct dilatation. Spleen, pancreas and adrenal glands appear normal.Partially filled bladder appears normal. Suggestion of bilateral ovarian cysts.There is minimal free pelvic fluid. There is no large or small bowel dilatation. Contrast has reached the level of the proximal to midtransverse colon. There is no bowel wall thickening or inflammatory change. Thereis a small fat-containing umbilical hernia. There are no renal lesions or hydronephrosis. Impression: No abnormality of bowel identified. Findings suggest ovarian cyst. Follow-up pelvic ultrasound may beuseful. Dictated By: ADA MERCADO Transcribed By: sneha pace Transcribed On: 08/09/2022 2:03 PM Electronically signed by: ADA MERCADO 08/09/2022 Thank you for referring JAMES RAMOS to [facility]. Legally authenticated by JESS CABALLERO 2022-08-09 14:49:49 us Adarsh Gan MD IMG CT PROCEDURES Final Result documented in this encounter Visit Diagnoses Not on filedocumented in this encounter Additional Health Concerns Infection Onset Date Last Indicated Resolved Time C. difficile Rule-Out 12/20/2023 12/20/20232023 5:23 AM EDT Assessment Noted Time PHQ-9 Depression Total Score: 14 0818/2 022 9:46 AM EDT A fall risk assessment has been complete d for the patient 07/29/2022 9:40 AM EDT A Body Mass Index follow-up plan has been documented for the patient 07/29/2022 12:05 PM EDT documented as of this encounter Care Teams Senior Etl Developer Relationship Specialty Start Date End Date Marsha Mora APRN [address] [place] [address] PCP - General 08/22/20 10/17/22 Sharmin Awad APRN [address] [place] [phone] PCP - General Family Medicine 10/18/22 documented as of this encounter
--- OUTSIDE RECORDS SUMMARY | 2024-09-18 10:06 | XMS_ITS | Encounter Summary ---
Author Organization Healthcare Address [address] [place] [address] Care Team Providers Care Cigar Head Holer Name Role Phone Abby, Marsha Nalini QUIGLEY Primary Care Provider [phone] Sharmin Awad APRN Primary Care Provider [phone] Encounter Details Date Type Department Care Team ([facility] st Contact Info) Description 04/26/2022 Outside Procedure External Location [address] [place] [address] Carter Conner MD [address] [place] [address] Social History Tobacco Use Types [...] often do you attend chur ch or sabianism services? Never 10/15/2020 Do you belong to any clubs o r organizations such as adventist groups, unions, fraternal or athletic groups, or [...] Recorded Patient Health Questionnaire-2 Score 4 11/26/2021 [facility] - Occupational Stress Questionnaire Answer Date Recorded [...] place to sleep or slept in a care home (including now)? No 10/15/2020 Comments No Sex and Gender Information Value Date Recorded Sex Assigned at Female 02/04/2022 8:54 AM EDT Legal Sex Female 6:31 PM EDT Gender Identity Female 02/04/2022 8:54 AM EDT Sexual Orientation Straight 02/04/2022 8 :54 AM EDT COVID-19 Exposure Response Date Recorded In the last 10 days, have yo u been in contact with someone who was confirmed or suspected to have Coronavirus/COVID-19? No / Unsure 04/28/2022 10:06 AM EST documented as of this encounter Plan of Treatment Upcoming Encounters Date Type Department Care Team (Late st Contact Info) Description 11/14/2024 2:10 PM EDT Office Visit [facility] [address] [place] [address] Ginny Quan, REPAIR MILLER [address] [place] [address] documented as of this encounter Procedures Procedure Name Priority Date/Time Associated Diagnosis Comments CT ABDOMEN PELVIS W IV CONTRAST 04/26/2022 12:59 PM EST documented in this encounter Results * CT Abdomen Pelvis w IV Contrast (04/26/2022 12:59 PM EST) Anatomical Region Laterality Modality Abdomen, Pelvis Computed Tomogra phy 04/26/2022 12:5 9 PM EST Narrative 04/26/2022 2:56 PM EST [facility] [address] [place] [address] Name: JAMES RAMOS Exam Date: 04/26/2022 : 1990 Age 31 Gender: F Physician: CARTER CONNER Facility: [facility] Facility HSV: Outpatient Exam: CT ABD PEL W/ (IV ORAL) CT ABDOMEN AND PELVIS WITH CONTRAST HISTORY: Pelvic abscess, follow-up. COMPARISON: April 11, 2022. TECHNIQUE: Axial images were obtained from the lung bases through the pubic symphysis by computed tomography after the administration of IV contrast. Oral contrast was also administered. This study was performed with techniques to keep radiation doses as low as reasonably achievable, (ALARA). Individualized dose reduction techniques using automated exposure control or adjustment of mA and/or kV according to the patient's size were employed. FINDINGS: ABDOMEN: The lung bases are clear. Heart size is normal. The liver is unremarkable. Gallbladder is absent. The spleen is normal. The pancreas is normal. No adrenal mass is present. The kidneys are unremarkable. There is no hydronephrosis. There is no free fluid or adenopathy. The aorta is normal in caliber. There is no evidence of bowel obstruction. PELVIS: There is a fat-containing umbilical hernia. Mucosal thickening is identified involving the descending colon, sigmoid colon, and rectum. Findings may be inflammatory. The appendix is non dilated. Urinary bladder is decompressed. There is a well-circumscribed hypodense 4.5 x 4.1 cm fluid density lesion superior to the vaginal cuff. This likely represents abscess. Small amount of free fluid is identified in the pelvis. No acute osseous changes are identified. IMPRESSION: Probable recurrent abscess superior to the vaginal cuff. Continued follow-up is recommended. Thickening of the left colon, may be inflammatory. The films were reviewed, interpreted, and dictated by Dr. Goss Transcribed by Keily Strauss PA-C Dictated By: JAMES GOSS Transcribed By: James Goss Transcribed On: 04/26/2022 2:45 PM Electronically signed by: JAMES GOSS 04/26/2022 Thank you for referring JAMES RAMOS to [facility]. Legally authenticated by POPE JAMES Arias 2022-04-26 14:45:02 Procedure Note Provider, [facility] [place] - 04/26/2022 [place] [id number] Name: JAMES RAMOS Exam Date: 04/26/2022 : 1990 Age 31 Gender: F Physician: CARTER CONNER Facility: [facility] Facility HSV: Outpatient Exam: CT ABD PEL W/ (IV ORAL) CT ABDOMEN AND PELVIS WITH CONTRAST HISTORY: Pelvic abscess, follow-up. COMPARISON: April 11, 2022. TECHNIQUE: Axial images were obtained from the lung bases through thepubic symphysis by computed tomography after the administration of IV contrast.Oral contrast was also administered. This study was performed with techniquesto keep radiation doses as low as reasonably achievable, (ALARA).Individualized dose reduction techniques using automated exposure control or adjustmentof mA and/or kV according to the patient's size were employed. FINDINGS: ABDOMEN: The lung bases are clear. Heart size is normal. The liver is unremarkable. Gallbladder is absent. The spleen is normal. The pancreasis normal. No adrenal mass is present. The kidneys are unremarkable. There isno hydronephrosis. There is no free fluid or adenopathy. The aorta is normalin caliber. There is no evidence of bowel obstruction. PELVIS: There is a fat-containing umbilical hernia. Mucosal thickeningis identified involving the descending colon, sigmoid colon, and rectum.Findings may be inflammatory. The appendix is non dilated. Urinary bladder is decompressed. There is a well-circumscribed hypodense 4.5 x 4.1 cm fluid density lesion superior to the vaginal cuff. This likely representsabscess. Small amount of free fluid is identified in the pelvis. No acute osseous changes are identified. IMPRESSION: Probable recurrent abscess superior to the vaginal cuff.Continued follow-up is recommended. Thickening of the left colon, may be inflammatory. The films were reviewed, interpreted, and dictated by Dr. Goss Transcribed by Keily Strauss PA-C Dictated By: JAMES GOSS Transcribed By: James Goss Transcribed On: 04/26/2022 2:45 PM Electronically signed by: JAMES GOSS 04/26/2022 Thank you for referring JAMES RAMOS to [facility]. Legally authenticated by POPE JAMES Arias 2022-04-26 14:45:02 us Carter Conner MD IMG CT PROCEDURES Final Result documented [...] documented as of this encounter Care Teams Cigar Head Holer Relationship Specialty Start Date End Date Marsha Mora APRN [address] [place] [address] PCP - General 08/22/20 10/17/22 Sharmin Awad APRN [address] [place] [address] PCP - General Family Medicine 10/18/22 documented as of this encounter
--- OUTSIDE RECORDS SUMMARY | 2024-09-18 10:06 | XMS_ITS | Encounter Summary ---
Author Organization Healthcare Address [address] [place] [address] Care Team Providers Care Angle Shearer Name Role Phone Marsha Mora APRN Primary Care Provider [phone] Sharmin Awad APRN Primary Care Provider [phone] Encounter Details Date Type Department Care Team ([facility] st Contact Info) Description 04/11/2022 Outside Procedure External Location [address] [place] [address] Provider, Nithin [place] Social History Tobacco Use Types Packs/Day Years [...] often do you attend chur ch or denominational services? Never 10/15/2020 Do you belong to [...] Recorded Patient Health Questionnaire-2 Score 4 11/26/2021 [facility] - Occupational Stress [...] place to sleep or slept in a correction (including now)? No 10/15/2020 Comments No Sex [...] Description 11/14/2024 2:10 PM EDT Office Visit [facility] Medicine Specialties [address] [place] [address] Ginny Quan M, SORAIDA [address] [place] [address] documented as of this encounter Procedures Procedure Name Priority Date/Time Associated Diagnosis Comments CT ABDOMEN PELVIS W IV CONTRAST 04/11/2022 4:09 PM EST documented in this encounter Results * CT Abdomen Pelvis w IV Contrast (04/11/2022 4:09 PM EST) Anatomical Region Laterality Modality Abdomen, Pelvis Computed Tomogra phy 04/11/2022 4:09 PM EST Narrative 04/11/2022 6:50 PM EST [place] [id number] [place] [address] Name: JAMES RAMOS Exam Date: 04/11/2022 : 1990 Age 31 Gender: F Physician: HERBERT HERNANDEZ Facility: [facility] Facility HSV: Outpatient Exam: CT ABD PEL W (IV CONT ONLY) FINAL REPORT CLINICAL HISTORY: Pt had a partial hysterectomy 2021, developed fluid and abscess per pt. Admitted to hospital for treatment and discharged on Mar 29. Pt still having vaginal bleeding and doesn't feel right. FINDINGS: CT OF THE ABDOMEN AND PELVIS WITH CONTRAST Axial CT images of the abdomen and pelvis were obtained after the administration of oral and iv contrast. Coronal reformatted images were also obtained and reviewed.This study was performed with techniques to keep radiation doses as low as reasonably achievable (ALARA). Individualized dose reduction techniques using automated exposure control or adjustment of mA and/or kV according to the patient's size were employed. Abdomen: The patient is status post cholecystectomy. The lung bases are clear. The heart is normal in size. The liver has an unremarkable appearance, without evidence of mass or biliary ductal dilatation. The spleen is unremarkable. No adrenal mass is present. The pancreas has an unremarkable appearance. The kidneys are normal, without evidence of mass or hydronephrosis. The aorta is normal in caliber. There is no free fluid or adenopathy. No mass or abnormal fluid collection is seen. There is no umbilical hernia containing fat only. Pelvis: There are postoperative changes from hysterectomy. An air-fluid collection is seen superior to the vaginal cuff. This measures 61 mm in the transverse dimension and has an appearance consistent with abscess. The small amount of free fluid is likely reactive. The appendix is not visualized. The urinary bladder is unremarkable. There is no evidence of mass or adenopathy. There is wall thickening of the terminal ileum that may represent secondary inflammation. There is no evidence of bowel obstruction. IMPRESSION: 61 mm abscess superior to the vaginal cuff. Wall thickening of the terminal ileum may represent secondary inflammation. Reviewed, Interpreted and Dictated by Ravi Khan III, MD Transcribed by Vitaly Bill Authenticated and [facility]ASTERN Dictated By: Ravi Khan III Transcribed By: Transcribed On: 04/11/2022 6:37 PM Electronically signed by: Ravi Khan III 04/11/2022 Thank you for referring JAMES RAMOS to [facility]. Legally authenticated by ZULEYMA Gayle III 2022-04-11 18:37:58 Procedure Note Provider, Generic [place] - 04/11/2022 [place] [id number] Name: JAMES RAMOS Exam Date: 04/11/2022 : 1990 Age 31 Gender: F Physician: HERBERT HERNANDEZ Facility: [facility] Facility HSV: Outpatient Exam: CT ABD PEL W (IV CONT ONLY) FINAL REPORT CLINICAL HISTORY: Pt had a partial hysterectomy 2021, developed fluid and abscess per pt. Admitted to hospital for treatment and discharged on Mar 29. Pt still having vaginal bleeding and doesn't feel right. FINDINGS: CT OF THE ABDOMEN AND PELVIS WITH CONTRAST Axial CT images of the abdomen and pelvis were obtained after the administration of oral and iv contrast. Coronal reformatted images were also obtained and reviewed.This study was performed with techniques to keep radiation doses as low as reasonably achievable (ALARA). Individualized dose reduction techniques using automated exposure control or adjustment of mA and/or kV according to the patient's size were employed. Abdomen: The patient is status post cholecystectomy. The lung bases are clear. The heart is normal in size. The liver has an unremarkable appearance, without evidence of mass or biliary ductal dilatation. The spleen is unremarkable. No adrenal mass is present. The pancreas has an unremarkable appearance. The kidneys are normal, without evidence of mass or hydronephrosis. The aorta is normal in caliber. There is no free fluid or adenopathy. No mass or abnormal fluid collection is seen. There is no umbilical hernia containing fat only. Pelvis: There are postoperative changes from hysterectomy. An air-fluid collection is seen superior to the vaginal cuff. This measures 61 mm in the transverse dimension and has an appearance consistent with abscess. The small amount of free fluid is likely reactive. The appendix is not visualized. The urinary bladder is unremarkable. There is no evidence of mass or adenopathy. There is wall thickening of the terminal ileum that may represent secondary inflammation. There is no evidence of bowel obstruction. IMPRESSION: 61 mm abscess superior to the vaginal cuff. Wall thickening of the terminal ileum may represent secondary inflammation. Reviewed, Interpreted and Dictated by Ravi Khan III, MD Transcribed by Vitaly Bill Authenticated and EASTERN Dictated By: Ravi Khan III Transcribed By: Transcribed On: 04/11/2022 6:37 PM Electronically signed by: Ravi Khan III 04/11/2022 Thank you for referring JAMES RAMOS to [facility]. Legally authenticated by ZULEYMA Gayle III 2022-04-11 18:37:58 us Generic [place] Provider IMG CT PROCEDURES Fi nal Result documented in this [...] documented as of this encounter Care Teams Angle Shearer Relationship Specialty Start Date End Date Marsha Mora APRN [address] [place] [address] PCP - General 08/22/20 10/17/22 Sharmin Awad APRN [address] [place] [address] PCP - General Family Medicine 10/18/22 documented as of this encounter
--- OUTSIDE RECORDS SUMMARY | 2024-09-18 10:06 | XMS_ITS | Clinical Summary ---
Author Organization [employer] Address [address] [place] [address] Care Team Providers Care Retread Builder Name Role Phone MoiseNilda SORAIDA Primary Care Provider [phone] Allergies Active Allergy Reactions Criticality Noted Date Comments Latex 10/25/2023 Social History Tobacco Use Types Packs/Day Years Used Date Smoking Tobacco: Never Assessed Interpersonal Safety Answer Date Record ed Family or friends hurt you Not on file 10/24 Family or friends insult you Not on file Family or friends threaten you Not on file 0 10/25/2023 Family or friends scream or curse at you Not on file 10/25/2023 Food Insecurity Answer Date Recorded Food run out past 12 months Not on file 10/09 Food did not last past 12 months Not on file 10/25/2023 Employment Answer Date Recorded Help finding and keeping a job Not on file 0 10/25/2023 Family and Community Support Answer Dick e Recorded Help with Day to Day Activities Not on file 10/25/2023 Feeling Lonely or Isolated Not on file 10/24 Educational Attainment Answer Date Kermit rded Speak language other than [place] at home Not on file 10/25/2023 Want help with school or training Not on file 10/25/2023 Depression Answer Date Recorded PHQ-2 Risk Not on file 10/25/2023 Disabilities Answer Date Recorded Difficulty concentrating Not on file 024 Difficulty doing errands alone Not on file 0 10/25/2023 Substance Use Answer Date Recorded Used prescription meds for non-medical reasons N ot on file 10/25/2023 Used illegal drugs past 12 months Not on file 10/25/2023 Comments Unknown Sex and Gender Information Value Date Recorded Sex Assigned at Not on file 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 Gender Identity Not on file Sexual Orientation Not on file Last Filed Vital Signs Vital Sign Reading Time Taken Comments Blood Pressure 110/79 10/25/2023 6:15 PM EDT Pulse 114 10/25/2023 6:15 PM EDT Temperature 36.4 C (97.6 F) 10/25/2023 6:15 PM EDT Respiratory Rate 16 10/25/2023 6:15 PM EDT Oxygen Saturation 100% 10/25/2023 6:15 PM EDT Inhaled Oxygen Concentration - - Weight 63.5 kg (140 lb) 10/25/2023 6:15 PM EDT Height 157.5 cm (5' 2 ) 10/25/2023 6:15 PM EDT Body Mass Index 25.61 10/25/2023 6:15 PM EDT Plan of Treatment Health Maintenance Due Date Last Done Comments Depression Screening (12+) 2003 Tobacco Cessation Counseling and Screening (12+) 2003 HIV Screening 08/12/2006 Hepatitis C Screening 08/12/2009 COVID-19 VACCINE ( season) 2023 Pap Smear 03/03/2024 03/03/2021 Influenza Vaccine (Season Ended) 2024 DTAP/TDAP/TD VACCINES (5 - Td or Tdap) 08/12/2029 2019, 08/28/2018, 01/07/2017, Additional history exists Pneumococcal Vaccine: 0-49 Years Aged Out 04/19/2023 No longer eligible based on patient's age to complete this topic Insurance [facility] [place] [address] Care Teams Retread Builder Relationship Specialty Start Date End Date Nilda Phipps, NEUROBIOLOGIST [address] [place], [place] [id number] PCP - General Nurse Practitioner 10/25/23
--- OUTSIDE RECORDS SUMMARY | 2024-09-18 10:06 | XMS_ITS | Encounter Summary ---
Author Organization Healthcare Address [address] [place] [address] Care Team Providers Care Health Physicist Name Role Phone Marsha Mora MAT TESTER Primary Care Provider [phone] Sharmin Awad APRN Primary Care Provider [phone] Encounter Details Date Type Department Care Team ([facility] Contact Info) Description 01/20/2022 Outside Procedure External Location [address] [place] [address] Sharmin Lambert, SORAIDA [address] [place] [address] Social History Tobacco Use Types Packs/Day Years [...] often do you attend chur ch or hinduism services? Never 10/15/2020 Do you belong to any clubs o r organizations such as zoroastrianism groups, unions, fraternal or athletic groups, or [...] Recorded Patient Health Questionnaire-2 Score 4 11/26/2021 [facility] - Occupational Stress Questionnaire Answer Date Recorded [...] Orientation Straight 02/04/2022 8: 54 AM EDT documented as of this encounter Plan of Treatment Upcoming Encounters Date Type Department Care Team (Late st Contact Info) Description 11/14/2024 2:10 PM EDT Office Visit [facility] [address] [place] [address] Ginny Quan, MAT TESTER [address] [place] [address] documented as of this encounter Procedures Procedure Name Priority Date/Time Associated Diagnosis Comments US LIVER SCREEN 01/20/2022 9:56 AM EDT documented in this encounter Results * US Liver Screen (01/20/2022 9:56 AM EDT) Anatomical Region Laterality Modality Abdomen, Liver Ultrasound 01/20/2022 9:56 AM EDT Narrative 01/20/2022 11:[place] [address] Name: JAMES RAMOS Exam Date: 01/20/2022 : 1990 Age 31 Gender: F Physician: SHARMIN LAMBERT Facility: [facility] Facility HSV: Outpatient Exam: LIVER ULTRASOUND RIGHT UPPER QUADRANT ULTRASOUND HISTORY: Elevated LFTs Multiple transverse and longitudinal scans were performed of the right upper quadrant of the abdomen. FINDINGS: The patient is status post cholecystectomy. Visualized liver parenchyma appears normal. No intrahepatic duct dilatation is identified. No evidence of common bile duct dilatation is identified. Pancreas is obscured. The right kidney shows no evidence of obstruction. IMPRESSION: Changes from prior cholecystectomy. Otherwise, unremarkable right upper quadrant ultrasound Images reviewed, interpreted, and dictated by Dr. Annie Lockhart. Transcribed by Irasema Lowery PA-C Dictated By: Annie Mcneil Transcribed By: Annie Lockhart Transcribed On: 01/20/2022 11:18 AM Electronically signed by: Annie Mcneil 01/20/2022 Thank you for referring JAMES RAMOS to [facility]. Legally authenticated by CELINA ANAND 2022-01-20 11:18:05 Procedure Note Provider, Generic [place] - 01/20/2022 [place] [address] Name: JAMES RAMOS Exam Date: 01/20/2022 : 1990 Age 31 Gender: F Physician: SHARMIN LAMBERT Facility: [facility] Facility HSV: Outpatient Exam: LIVER ULTRASOUND RIGHT UPPER QUADRANT ULTRASOUND HISTORY: Elevated LFTs Multiple transverse and longitudinal scans were performed of the rightupper quadrant of the abdomen. FINDINGS: The patient is status post cholecystectomy. Visualized liver parenchyma appears normal. No intrahepatic ductdilatation is identified. No evidence of common bile duct dilatation is identified. Pancreas is obscured. The right kidney shows no evidence of obstruction. IMPRESSION: Changes from prior cholecystectomy. Otherwise, unremarkableright upper quadrant ultrasound Images reviewed, interpreted, and dictated by Dr. Annie Lockhart. Transcribed by Irasema Lowery PA-C Dictated By: Annie Mcneil Transcribed By: Annie Lockhart Transcribed On: 01/20/2022 11:18 AM Electronically signed by: Annie Mcneil 01/20/2022 Thank you for referring JAMES RAMOS to [facility]. Legally authenticated by CELINA ANAND 2022-01-20 11:18:05 us Sharmin Lambert APRN IMG US PROCEDURES Final Resu lt documented in this encounter Visit Diagnoses Not [...] documented as of this encounter Care Teams Health Physicist Relationship Specialty Start Date End Date Marsha Mora APRN [address] [place] [address] PCP - General 08/22/20 10/17/22 Sharmin Awad APRN [address] [place] [address] PCP - General Family Medicine 10/18/22 documented as of this encounter
--- OUTSIDE RECORDS SUMMARY | 2024-09-18 10:06 | XMS_ITS | Clinical Summary ---
Author Organization [facility] Address [address] [place] [address] Care Team Providers Care Credit Cashier Name Role Phone Sharmin Awad APRN Primary Care Provider [phone] Allergies Active Allergy Reactions Criticality Noted Date Comments Latex Rash High 05/05/2022 Medications Ventolin HFA 108 (90 Base) MCG/ACT inhaler 04/14/19 24 Active polyethylene glycol (Miralax) powder DISSOLVE 17 GRAMS OF POWDER INTO 4 TO 8 OUNCES OF WATER, JUICE, SODA, COFFEE, OR TEA THEN DRINK do not take laxative with USE of miralax OR generic equivalent. titrate TO stool consistency as reviewed. Increase water intake 04/29/19 24 Active omeprazole (PriLOSEC) [address] capsule 1 capsule (40 mg). 09/28/19 24 Active ondansetron ODT (Zofran-ODT) 4 MG disintegrating tablet DISSOLVE 1 TABLET IN MOUTH EVERY 6 TO 8 HOURS NEEDED Active Orilissa 200 MG tablet Take 1 tablet by mouth 2 (two) times a day. 11/02/19 24 Active estradiol (Estrace) 1 MG tablet Take 1 tablet (1 mg) by mouth 1 (one) time each day. 11/15/19 24 Active ascorbic acid (vitamin C) 1000 MG tablet Take 1 tablet (1,000 mg) by mouth 1 (one) time each day. Active amitriptyline (Elavil) 100 MG tablet Take 1 tablet (100 mg) by mouth every night. 04/25/19 25 Active Symbicort 80-4.5 MCG/ACT inhaler INHALE 2 PUFFS BY MOUTH TWICE DAILY --RINSE MOUTH AFTER USE-- use with spacer 04/13/19 Active colestipol (Colestid) 1 g tablet TAKE TWO TABLETS BY MOUTH TWICE DAILY FOR BILE ACID DIARRHEA 02/21/20 24 Active ibuprofen 800 MG tablet Take 1 tablet (800 mg) by mouth every 8 (eight) hours. 05/20/19 24 Active promethazine (Phenergan) 25 MG tablet TAKE ONE TABLET BY MOUTH THREE TIMES DAILY NEEDED FOR NAUSEA AND VOMITING FOR 5 DAYS 03/24/20 24 Active hydroxychloroquine (Plaquenil) 200 MG tabletIndications: DB positive Alternate between one and two tablets, every other day. 135 tablet 05/16/19 25 Active Active Problems Problem Noted Date Diagnosed Date Candidiasis 09/15/2022 Positive DB (antinuclear antibody) 09/03/2022 Assessment & Plan (09/03/2022 10:22 AM EDT): Has a few labs that are abnormal - has saw rheumatology but would like a second opinion Immunology and hepatology referrals placed FSH, total testosterone, and estradiol today RTC as needed Chronic fatigue 07/29/2022 Assessment & Plan (07/29/2022 12:03 PM EDT): - follow up with GI and specialist for possible autoimmune disorders - CT scan to eval pelvic causes Other acne 07/29/2022 Assessment & Plan (07/29/2022 12:05 PM EDT): - has reaction to retinal in past - has awning erector - we discussed that OCPs could help with both acne and facial - recommended that she sees GI and specialist to make sure there is no liver pathology before we start OCPs Pelvic pain 05/05/2022 Assessment & Plan (10/11/2022 10:32 AM EDT): 32yo with chronic pelvic pain after TVH c/b post-op abscess We reviewed her OSH CT scans, TVUS, notes, as well as her history and exam. She has no evidence of infection today, exam signifcant for likely primarily MSK etiology, which we reviewed is common after a challenging surgical course like she had. Based on her physical exam and history, it is evident that there is a significant component of myofascial pain that is contributing to her symptoms. Myofascial pain is pain that arises from dysfunction, spasticity, and/or hypersensitivity of the muscle, fascia or joints in the abdominal wall, pelvic floor, and /or low back. This is an extremely common , but under-recognized source of pain in women with chronic pelvic pain. We discussed that the most effective treatment modality is usually physical therapy, and that it is extremely important that she be seen and evaluated by a physical therapist with specialty training in female pelvic pain. We provided her with a referral to a local women's health physical therapist. We also recommended continuing OCPs, can switch to continuous dosing if she notices pain is worse during withdrawal weeks. Colonoscopy negative, no concerns for GI etiology. Assessment & Plan (09/15/2022 4:58 PM EDT): - ultrasound normal at last visit on 09/03/22 - went to ED on 09/09 with increasing nausea and vomiting - was told that she was septic and had a pelvic abscess - was given IV antibiotics and discharged on Levaquin - CT scan was concerning for an abscess, but per verbal report from Dr. Stevenson's the ED physician in [place] told him that the ultrasound was normal. We are requesting ultrasound records. - After reviewing information, the CT scan concern for abscess, could be 2 stable cysts on previous ultrasounds that I performed. We discussed that I didn't think she was septic as her vital signs remained stable and her lab work improved after IVF hydration. We discussed this doesn't mean that she doesn't have an infection though. Recommend to continue antibiotics. - We discussed that since her post-operative course has been so complicated, that we could perform another diagnostic laparoscopy to look in the pelvis for more answers, or a second opinion with another ELECTRICAL ELECTRONICS ENGINEER and surgeon could be beneficial to help us with additional diagnoses and treatment plans. - She would like a second opinion - scheduled with Dr. Mcclendon in October. - follow up ultrasound reports - medical records is now closed today Assessment & Plan (09/03/2022 10:21 AM EDT): - hemorrhagic cyst has resolved - with try OCPs with ovulatory suppression to decrease risk of recurrent cysts - RTC as needed Assessment & Plan (08/20/2022 8:42 AM EDT): - discussed ultrasound findings of likely hemorrhagic cyst - discussed that these can happen with ovulation - discussed that OCPs prevent ovulation and that these can help prevent hemorrhagic cysts, but they do not treat the current cysts - we discussed that hemorrhagic cysts can rupture, decrease in size, or increase in size. We discussed surgery vs. Repeat ultrasound. She would like to repeat US in 2 weeks and if cyst is still present proceed with cystectomy. - RTC for US in 2 weeks - scheduled for diagnostic laparoscopy, unilateral cystectomy on 09/14 if cyst is still present - precautions discussed Assessment & Plan (07/29/2022 12:05 PM EDT): - TVUS at last visit: surgically absent uterus, right ovary with three simple fluid filled cysts/follicles largest measuring 1.8 cm, normal left ovary, no free fluid. - planning colonoscopy with GI - given history of pelvic infection after hysterectomy, will obtain CT A/P to ensure there are no signs of an infection or new ovarian pathology - will call with CT results Assessment & Plan (07/08/2022 12:24 PM EDT): - TVUS: surgically absent uterus, right ovary with three simple fluid filled cysts/follicles largest measuring 1.8 cm, normal left ovary, no free fluid. - discussed normal ultrasound! 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 Vaginal cuff intact - will return for ultrasound to evaluate ovaries - Lab work today for post-operative follow up Assessment & Plan (05/05/2022 10:57 AM EST): - recovery is going well - she is starting to feel better. Benign exam - has finished antibiotics - oxycodone needs prior auth - will send in toradol as well - discussed returning to normal activity in ~ 1 week - RTC 2 weeks for check up Pelvic abscess in female 04/28/2022 Assessment & Plan (04/28/2022 12:16 PM EST): - discussed that CT scan showed that abscess was still present but that is smaller in size. She is still symptomatic from abscess. - I called radiology yesterday at [facility] to discuss drain placement - they are unable to place drain abdominally. - We discussed different management options including observation with continuing PO antibiotics and repeat imaging in 2 weeks, or we discussed surgical management with diagnostic laparoscopy with drainage of abscess and abdominal washout. She would like to proceed with surgery. - Called and spoke with OR - plan for diagnostic laparoscopy with drainage of abscess and abdominal washout tomorrow 04/29 at 1 PM. Consents signed - we discussed that we will also do some IV antibiotics and that hopefully this should resolve the abscess - we also discussed that the abscess could return and additional procedures may be needed. Acute peritonitis 04/28/2022 07/01/2022 Postprocedural retroperitoneal abscess 04/28/2022 07/01/2022 Immunizations Immunization Administration Dates Next Due Hep A, Adult 07/27/2022,02/04/2022 Hep B, Adolescent or Pediatric 01/23/2004,2003 Hep B, adult 07/27/2022,04/28/2022,02/11/2022 Pneumococcal 20-hoda Conj Vaccine 04/19/2023 TD (adult), 2 Lf tetanus tox oid, preservative free, adsorbed 12/10/2003 Tdap 2019,08/28/2018,01/07/2017 Family History Medical History Relation Name Comments Autoimmune disease Father William Davila Cancer Mother Abdoulaye Welsh Conversions - Other Mother Abdoulaye carr history unknown Melanoma Mother Abdoulaye Welsh Recurrent Infections Mother Abdoulaye Welsh Cancer Mother's Sister 1 Marsha Welsh Cancer Mother's Sister 2 Abdoulaye Welsh John's thyroiditis Sister Relation Name Status Comments Father William Davila Mother Abdoulaye Welsh Mother's Sister 1 Marsha Welsh Mother's Sister 2 Abdoulaye Torresbrey Sister Social History Tobacco Use Types Packs/Day Years Used Date Smoking Tobacco: Former Cigarettes 1 10.1 2 010 - 05/13/2019 Passive Smoke Exposure: Past Smokeless Tobacco: Never Tobacco Cessation:Counseling Given: Not Answered Alcohol Use Standard Drinks/Week Comments Not Currently 0 (1 standard drink = 0.6 oz [...] often do you attend chur ch or judaism services? Never 10/15/2020 Do you belong to any clubs o r organizations such as anabaptism groups, unions, fraternal or athletic groups, or [...] Date Recorded Patient Health Questionnaire-2 Score 0 05/16/2024 [facility] - Occupational Stress [...] place to sleep or slept in a longterm (including now)? No 10/15/2020 PHQ-2A Answer Date Recorded Patient Health Questionnaire-2 Score 0 11/23/2022 Comments No Sex and Gender Information Value Date Recorded Sex Assigned at Female 02/04/2022 8:54 AM EDT Legal Sex Female 6:31 PM EDT Gender Identity Female 02/04/2022 8:54 AM EDT Sexual Orientation Straight 02/04/2022 8: 54 AM EDT Last Filed Vital Signs Vital Sign Reading Time Taken Comments Blood Pressure 102/70 05/16/2024 2:02 PM EST Pulse 97 05/16/2024 2:02 PM EST Temperature 36.8 C (98.2 F) 05/16/2024 2:02 PM EST Respiratory Rate 16 05/16/2024 2:02 PM EST Oxygen Saturation 100% 05/16/2024 2:02 PM EST Inhaled Oxygen Concentration - - Weight 69.3 kg (152 lb 12.5 oz) 05/16/2024 2:02 PM EST Height 157.5 cm (5' 2 ) 05/16/2024 2:02 PM EST Body Mass Index 27.94 05/16/2024 2:02 PM EST Plan of Treatment Upcoming Encounters Date Type Department Care Team (Late st Contact Info) Description 11/14/2024 2:10 PM EDT [facility] Visit [facility] [address] [place] [address] Ginny Quan M, LABOR CONTRACT ANALYST [address] [place] [address] Health Maintenance Due Date Last Done Comments [facility]-/Child/Adol SDOH Screenings 1990 [id number] Vaccine (#1) 08/12/1996 [facility]-Varicella Vaccines (1 of 2 - 13+ 2-dose series) 08/12/2004 HPV Vaccines (1 - 3-dose series) 08/12/2006 [facility]- SDOH Screenings 08/12/2009 [facility]-Adult SDOH Screenings 08/12/2009 [facility]-Influenza Vaccine (Season Ended) 2024 [facility]-Depression Screening 05/16/2025 05/16/2024, 11/09 [facility]-DTaP,Tdap,and Td Vaccines (5 - Td or Tdap) 08/12/2029 2019, 08/28/2018, 01/07/2017, Additional history exists [facility]-Zoster Vaccines (1 of 2) 08/12/2041 [facility]-Cervical Cancer Screening Discontinued [facility]-HPV/Cotest Discontinued 03/03/2021 [facility]-Pap Smear Discontinued 03/03/2021 [facility]-Hepatitis A Vaccines Aged Out 07/27/2022, 01/10 No longer eligible based on patient's age to complete this topic [facility]-Hepatitis B Vaccines Completed 023, 04/28/2022, 02/11/2022, Additional history exists [facility]-Pneumococcal Vaccine: Pediatrics (0 to 5 Years) and At-Risk Patients (6 to 49 Years) Aged Out 04/19/2023 No longer eligible based on patient's age to complete this topic [facility]-Hepatitis C Screening Completed 2023, 11/23/2022, 12/15/2021, Additional history exists [facility]-HIV Screening Completed 12/20/2023, , 01/09/2020, Additional history exists [facility]-Obesity Intervention Completed 025, 11/25/2023, 06/21/2023, Additional history exists [facility]-HIB Vaccines Aged Out No longer e ligible based on patient's age to complete this topic [facility]-IPV Vaccines Aged Out No longer e ligible based on patient's age to complete this topic [facility]-Rotavirus Vaccines Aged Out No lo nger eligible based on patient's age to complete this topic Procedures Procedure Name Priority Date/Time Associated Diagnosis Comments ED HIV 1/2 ANTIBODY/ANTIGEN SCREEN WITH REFLEX TO HIV I/II DIFFERENTIATION STAT 12/20/2023 12:07 PM EDT ACUTE HEPATITIS PANEL Routine 06/23/2023 10:22 AM EDT DB positive PAP TEST - CYTOLOGY Routine 03/03/2021 2 :47 PM EST Menorrhagia with regular cycle from Last 3 Months or Most Recently Relevant to Health Maintenance Results * ED HIV 1/2 Antibody/Antigen Screen w/Reflex to HIV 1/2 Differentiation (12/20/2023 12:07 PM EDT) Pathologist [facility] HIV 1 & 2 Antibody/Antigen Screen Non Reactive Non Reactive 12/20/2023 1:15 PM EDT [facility] Comment:Screening for HIV 1 & 2 antibodies, and P24 antigen is NONREACTIVE. No confirmatory testing is required. Blood Venous blood specimen / Unknown Venipuncture / Unknown 12/20/2023 12:07 PM EDT 12/20/2023 12:32 PM EDT Renetta Lopez MD LAB BLOOD ORDERABLES Final Resu lt Performing Organization Address City/[facility] [address]/ZIP Co de Phone Number [facility] [address] [place] [address] * Acute Hepatitis Panel (06/23/2023 10:22 AM EDT) [facility] Hepatitis B Surf Antigen Negative Negative 06/23/2023 12:49 PM EDT [facility] Hepatitis C Antibody Negative Negative 06/23/2023 12:49 PM EDT [facility] Hepatitis A Antibody IgM Negative Negative 06/23/2023 12:49 PM EDT [facility] Hepatitis B Core Antibody IgM Negative Negative 06/23/2023 12:49 PM EDT [facility] Blood Venous blood specimen / Unknown Venipuncture / Unknown 06/23/2023 10:22 AM EDT 06/23/2023 10:22 AM EDT Ginny Quan APRN LAB BLOOD ORDERABLES Final Result Performing Organization Address City/[facility] [address]/[facility] Co de Phone Number [facility] [address] [place] [address] * (ABNORMAL) Pap Smear (03/03/2021 2:47 PM EST) Case Report Cytology Case: [id number] Authorizing Provider: Carter Conner MD Collected: 03/03/2021 1447 Ordering Location: Obstetrics & Gynecology Received: 03/04/2021 0837 First Screen: Faraz Wild, CT Pathologist: Rose Porter MD Specimen: ThinPrep Pap Test, Liquid-Based Cervical/Vagina l, CERVICAL/VAGINA L 03/16/2021 10:12 AM EST [facility] Interpretation ATYPICAL SQUAMOUS CELLS OF UNDETERMINED SIGNIFICANCE (ASCUS)(A) 03/16/2021 10:12 AM EST [facility] at 1012 EST Specimen Adequacy Satisfactory for evaluation; endocervical/tr ansformation zone component present. Slide imaged by the ThinPrep Imaging system and selected 22 sagastume reviewed then full manual screening. 03/16/2021 10:12 AM EST [facility] Cervical cytology is a screening test primarily for squamous cancers and precursors and has associated false negative and positive results. New technologies such as liquid based sampling may decrease but will not eliminate all false negative results. Regular screening and follow-up of unexplained clinical signs and symptoms are recommended to minimize false negative results. Please see the ASCCP website (www.asccp.org) for followup recommendations . If HPV testing was requested, correlation with the results is suggested (please call Microbiology at [phone] for results). 03/16/2021 10:12 AM EST [facility] Menstrual Status Cyclic 03/16/20 10:12 AM EST [facility] History of Hysterectomy Not Applicable 03/16/2021 10:12 AM EST [facility] Contraceptive History Not Applicable 03/16/2021 10:12 AM EST [facility] Last Menstrual Period 01/31/2021 03/16/2021 10:12 AM EST [facility] Clinical Information N92.0 - Menorrhagia with regular cycle [ICD-10-CM] 03/16/2021 10:12 AM EST [facility] Screening Type Routine Screen 2020 10:12 AM EST [facility] High Risk? No 03/16/2021 10:12 AM [facility] HPV Testing Requested? Request HPV Testing if ASCUS (Women 25 Years or Older) 03/16/2021 10:12 AM EST [facility] Previous Cancer History No 03/16/2021 10:12 AM EST [facility] Swab Vaginal and cervical cytologic material / Unknown Non-blood Collection / Unknown 03/03/2021 2:47 PM EST 03/04/2021 8:37 AM EST Carter Conner MD LAB CYTOLOGY ORDERABLES Final R esult [facility] [address] [place] [phone] from Last 3 Months or Most Recently Relevant to Health Maintenance Insurance [facility] MEDICAID Care Teams Credit Cashier Relationship Specialty Start Date End Date Sharmin Awad APRN [address] [place] [address] PCP - General Family Medicine 10/18/22
--- OUTSIDE RECORDS SUMMARY | 2024-09-18 10:06 | XMS_ITS | Encounter Summary ---
Author Organization Healthcare Address [address] [id number] Care Team Providers Care Systems Test Technician Name Role Phone Sharmin Awad APRN Primary Care Provider [phone] Encounter Details Date Type Department Care Team (Late st Contact Info) Description 08/29/2023 Orders Only External Location [address] [place] [address] Adriana Mathews [address] [id number] Social History Tobacco Use Types Packs/Day Years Used Date Smoking Tobacco: Former Cigarettes 1 10.1 2 010 - 05/13/2019 Smokeless Tobacco: Never Alcohol Use Standard Drinks/Week Comments Not Currently [...] often do you attend chur ch or caodaism services? Never 10/15/2020 Do you belong to any clubs o r organizations such as faith groups, unions, fraternal or athletic groups, or [...] Recorded Patient Health Questionnaire-2 Score 0 11/23/2022 [facility] - [...] place to sleep or slept in a retirement (including now)? No 10/15/2020 PHQ-2A Answer Date [...] Description 11/14/2024 2:10 PM EDT Office Visit [facility] Medicine Specialties [address] [place] [address] Ginny Quan M, CLOTH FOLDER HAND [address] [place] [address] documented as of this encounter Procedures Procedure Name Priority Date/Time Associated Diagnosis Comments MR OUTSIDE IMAGES 08/29/2023 8:34 AM EDT documented in this encounter Results * MR transfer of outside films (08/29/2023 8:34 AM EDT) Anatomical Region Laterality Modality Magnetic Resonan ce 08/29/2023 8:34 AM EDT Adriana Mathews IM MRI PROCEDURES Final Result documented in this encounter Visit Diagnoses Not on filedocumented in this encounter Additional Health Concerns Infection Onset Date Last Indicated Resolved Time C. difficile Rule-Out 12/20/2023 12/20/20232023 5:23 AM EDT Assessment Noted Time PHQ-9 Depression Total Score: 14 022 9:46 AM EDT A fall risk assessment has been complete d for the patient 09/15/2022 2:27 PM EDT A Body Mass Index follow-up plan has been documented for the patient 06/21/2023 1:41 PM EDT documented as of this encounter Care Teams Systems Test Technician Relationship Specialty Start Date End Date Sharmin Awad APRN [address] [place] [address] PCP - General Family Medicine 10/18/22 documented as of this encounter
--- OUTSIDE RECORDS SUMMARY | 2024-09-18 10:06 | XMS_ITS | Referral Summary ---
Author Organization [facility] Address [address] [place] [address] Care Team Providers Care Cloth Coverer Name Role Phone MoiseNilda SORAIDA Primary Care Provider [phone] Allergies Active Allergy Reactions Criticality Noted Date [...] Date Kermit rded Speak language other than Syrian at home Not on file 10/25/2023 Want [...] on file Legal Sex Female 7:16 AM SUPPLY CONTRO[employer]ER Gender Identity Not on file Sexual Orientation [...] 10/25/2023 6:15 PM EDT Plan of Treatment [place] [address] [facility] Care Teams Cloth Coverer Relationship Specialty Start Date End Date Nilda Phipps, SORAIDA [address] [address] PCP - General Nurse Practitioner 10/25/23
--- OUTSIDE RECORDS SUMMARY | 2024-09-18 10:06 | XMS_ITS | Encounter Summary ---
Author Organization Healthcare Address [address] [place] [address] Care Team Providers Care Brick Chimney Builder Name Role Phone Marsha Mora APRN Primary Care Provider [phone] Sharmin Awad APRN Primary Care Provider Encounter Details Date Type Department Care Team ([facility] st Contact Info) Description 05/07/2022 Outside Procedure External Location [address] [place] [address] Provider, Nithin [place] Social History Tobacco Use Types Packs/Day Years [...] often do you attend chur ch or rastafari services? Never 10/15/2020 Do you belong to any clubs o r organizations such as baptist groups, unions, fraternal or athletic groups, or [...] Recorded Patient Health Questionnaire-2 Score 4 11/26/2021 [facility] - Occupational [...] place to sleep or slept in a chcf (including now)? No 10/15/2020 Comments No Sex [...] suspected to have Coronavirus/COVID-19? No / Unsure 05/05/2022 9:57 AM EST documented as of this encounter Plan of Treatment Upcoming Encounters Date Type Department Care Team (Late st Contact Info) Description 11/14/2024 2:10 PM EDT Office Visit [facility] Medicine Specialties [address] [place] [address] Ginny Quan M, SORAIDA [address] [place] [address] documented as of this encounter Procedures Procedure Name Priority Date/Time Associated Diagnosis Comments CT ABDOMEN PELVIS W IV CONTRAST 05/07/2022 1:02 PM EST documented in this encounter Results * CT Abdomen Pelvis w IV Contrast (05/07/2022 1:02 PM EST) Anatomical Region Laterality Modality Abdomen, Pelvis Computed Tomogra phy 05/07/2022 1:02 PM EST Narrative 05/07/2022 2:55 [place] [address] Name: JAMES RAMOS Exam Date: 05/07/2022 : 1990 Age 31 Gender: F Physician: JUANCARLOS SALDAÑA Facility: [facility] Facility HSV: Outpatient Exam: CT ABD PEL W (IV CONT ONLY) CT abdomen and pelvis with IV contrast History: Right lower quadrant pain Findings: Comparison date is 04/26/22. The exam was performed utilizing techniques to keep radiation dose as low as reasonably achievable. The exam was performed with IV contrast. Oral contrast was ingested. The bladder is incompletely distended. Previously seen fluid collection in the pelvis superior to the bladder measuring 4.4 cm has resolved. There is mild residual soft tissue stranding and edema in the pelvic fat. There is fluid in the right colon, cecum, and proximal transverse colon and distal small bowel with scattered air-fluid levels and mild bowel wall thickening. This appears new. There is mild soft tissue stranding in the right pericolonic fat. There is a fat-containing umbilical hernia. There is no evidence of a bowel hernia. Pancreas, adrenal glands, and spleen appear normal. There are no liver lesions. There are cholecystectomy clips. The appendix is not visualized and is presumably absent. The uterus is absent. There are no renal lesions or hydronephrosis. Impression: Resolution of previously seen pelvic fluid collection. Findings suggest colitis and enteritis. Dictated By: ADA MERCADO Transcribed By: ADA MERCADO Transcribed On: 05/07/2022 2:43 PM Electronically signed by: ADA MERCADO 05/07/2022 Thank you for referring JAMES RAMOS to [facility]. Legally authenticated by JESS CABALLERO 2022-05-07 14:43:47 Procedure Note Provider, [facility] - 05/07/[address] [id number] Name: JAMES RAMOS Exam Date: 05/07/2022 : 1990 Age 31 Gender: F Physician: JUANCARLOS SALDAÑA Facility: [facility] Facility HSV: Outpatient Exam: CT ABD PEL W (IV CONT ONLY) CT abdomen and pelvis with IV contrast History: Right lower quadrant pain Findings: Comparison date is 04/26/22. The exam was performed utilizing techniques to keep radiation dose as low as reasonably achievable. Theexam was performed with IV contrast. Oral contrast was ingested. The bladder is incompletely distended. Previously seen fluid collection inthe pelvis superior to the bladder measuring 4.4 cm has resolved. There ismild residual soft tissue stranding and edema in the pelvic fat. There is fluidin the right colon, cecum, and proximal transverse colon and distal smallbowel with scattered air-fluid levels and mild bowel wall thickening. Thisappears new. There is mild soft tissue stranding in the right pericolonic fat.There is a fat-containing umbilical hernia. There is no evidence of a bowelhernia. Pancreas, adrenal glands, and spleen appear normal. There are no liver lesions. There are cholecystectomy clips. The appendix is not visualizedand is presumably absent. The uterus is absent. There are no renal lesionsor hydronephrosis. Impression: Resolution of previously seen pelvic fluid collection. Findings suggest colitis and enteritis. Dictated By: ADA MERCADO Transcribed By: ADA MERCADO Transcribed On: 05/07/2022 2:43 PM Electronically signed by: ADA MERCADO 05/07/2022 Thank you for referring JAMES RAMOS to [facility]. Legally authenticated by JESS CABALLERO 2022-05-07 14:43:47 us Generic [place] Provider IMG CT PROCEDURES Fi nal Result [...] for the patient 11/26/2021 9:47 AM EDT A Body Mass Index follow-up plan has been documented for the patient 05/05/2022 10:58 AM EST documented as of this encounter Care Teams Brick Chimney Builder Relationship Specialty Start Date End Date Marsha Mora APRN [address] [place] [id number] PCP - General 08/22/20 10/17/22 Sharmin Awad APRN [address] [place] [address] PCP - General Family Medicine 10/18/22 documented as of this encounter
[2024-09-18 10:42] LABS: Basophils % 0.4 % (0.1-2.0); Eosinophils # 0.1 Kmm3 (0.0-0.4); Hematocrit 40.1 % (37.0-47.0); Hemoglobin 13.1 g/dL (12.2-16.2); Immature Granulocytes # 0.02 10^3uL; Immature Granulocytes % 0.4 %; Lymphocytes # 1.6 K/mm3 (0.7-4.5); Lymphocytes % 31.4 % (10-50); Mean Corpuscular HGB Conc 32.7 g/dL (31.8-35.4); Mean Corpuscular Hemoglobin 29.6 pg (27.0-31.2); Mean Corpuscular Volume 90.5 fl (81-99); Monocytes # 0.3 K/mm3 (0.1-1.0); Monocytes % 5.5 % (1.7-9.3); Neutrophils # 3.1 K/mm3 (1.8-7.8); Neutrophils % 60.3 % (37.0-80.0); Nucleated Red Blood Cells # 0 10^3/uL; Nucleated Red Blood Cells % 0 %; Platelet Count 173 K/mm3 (142-424); Red Blood Count 4.43 M/mm3 (4.20-5.40); Red Cell Distribution Width 12.5 % (11.5-17.5); Red Cell Distribution Width-SD 40.9 fL; White Blood Count 5.1 K/mm3 (4.8-10.8)
[2024-09-18 12:05] LABS: Alanine Aminotransferase 28 U/L (12-78); Albumin Level 4.4 g/dl (3.5-5.0); Albumin/Globulin Ratio 1.9 (1.1-1.8); Alkaline Phosphatase 70 U/L (38-126); Anion Gap 7.3 mEq/L (5-15); Aspartate Amino Transferase 38 U/L (14-36); Bilirubin,Total 0.5 mg/dl (0.2-1.3); Blood Urea Nitrogen 11 mg/dl (7-17); Calcium 9.4 mg/dl (8.4-10.2); Carbon Dioxide 30 mmol/L (22.0-30.0); Chloride 103 mmol/L (98-107); Estimated Glomerular Filt Rate 83 ml/min (>60); GFR (African American) 100 ML/MIN (>60); Globulin 2.3 g/dL (1.3-3.2); Glucose 100 mg/dl (74-100); Potassium 4.3 mmoL/L (3.5-5.1); Sodium 136 mmol/L (136-145); Total Protein,Serum 6.7 g/dl (6.3-8.2)
== END 2024-09-18 23:59 | disposition home or self-care (01) ==
LOC: LAB 10:03
PROVIDERS: PCP Nurse Practitioner Family; Visit Provider Nurse Practitioner Family
DX: R79.89 Other specified abnormal findings of blood chemistry (principal)
CPT/HCPCS: 36415; 80053; 85025

== ENCOUNTER 2024-09-20 08:30 | Outpatient (CLI) | payer MEDICAID, SELFPAY ==
--- OUTSIDE RECORDS SUMMARY | 2024-09-20 08:33 | XMS_ITS | Encounter Summary ---
Author Organization Healthcare Address [address] [place] [address] Care Team Providers Care Hair Colorist Name Role Phone Marsha Mora APRN Primary Care Provider [phone] Sharmin Awad APRN Primary Care Provider [phone] Encounter Details Date Type Department Care Team ([facility] st Contact Info) Description 04/11/2022 Outside Procedure External Location [address] [place] [address] Provider, Nithin [facility] Social History Tobacco Use Types Packs/Day Years [...] often do you attend chur ch or mandaen services? Never 10/15/2020 Do you belong to any clubs o r organizations such as mormon groups, unions, fraternal or athletic groups, or [...] Recorded Patient Health Questionnaire-2 Score 4 11/26/2021 [facility] - Occupational [...] place to sleep or slept in a fdc (including now)? No 10/15/2020 Comments No Sex [...] Description 11/14/2024 2:10 PM EDT Office Visit [facility] Medicine Specialties [address] [place] [address] Ginny Quan M, SORAIDA [address] [place] [address] documented as of this encounter Procedures Procedure Name Priority Date/Time Associated Diagnosis Comments XR CHEST 1 VIEW 04/11/2022 4:09 PM EST documented in this encounter Results * XR Chest 1 View (04/11/2022 4:09 PM EST) Anatomical Region Laterality Modality Chest Digital Radiogra phy 04/11/2022 4:09 PM EST Narrative 04/12/2022 8:53 [place] [address] Name: JAMES RAMOS Exam Date: 04/11/2022 : 1990 Age 31 Gender: F Physician: HERBERT HERNANDEZ Facility: [facility] Facility HSV: Outpatient Exam: CHEST PORTABLE PORTABLE [...] Thank you for referring JAMES RAMOS to [facility]. Legally authenticated by POPE JAMES Arias 2022-04-12 08:42:01 Procedure Note Provider, [facility] - 04/12/2022 [place] [address] Name: JAMES RAMOS Exam Date: 04/11/2022 : 1990 Age 31 Gender: F Physician: HERBERT HERNANDEZ Facility: [facility] Facility HSV: Outpatient Exam: CHEST PORTABLE PORTABLE [...] Thank you for referring JAMES RAMOS to [facility]. Legally authenticated by POPE JAMES Arias 2022-04-12 08:42:01 us Generic [facility] Provider IMG XR PROCEDURES Fi nal Result [...] documented as of this encounter Care Teams Hair Colorist Relationship Specialty Start Date End Date Marsha Mora APRN [address] [place] [address] PCP - General 08/22/20 10/17/22 Sharmin Awad APRN [address] [place] [phone] PCP - General Family Medicine 10/18/22 documented as of this encounter
--- OUTSIDE RECORDS SUMMARY | 2024-09-20 08:33 | XMS_ITS | Data Portability ---
Author Organization [place] - [facility] - [place] & [facility] ADMIN Address [address] [place] [id number] Care Team Providers Care Tip Out Worker Name Role Phone GUILHERME CHIANG Primary Care Provider Assessment Encounter Date Assessment Date Assessment LastModified by Organization Details LastModified Time 07/27/2022 07/27/2022 31-year-old fema le with worsening abdominal pain, loose stools, and painful defecation. She has a recent history of abscess formation following hysterectomy superior to the vaginal cuff and is s/p treatment for this. CT performed 05/07/22 c/w colitis and enteritis. 1) Abdominal pain/Abnormal CT abd/pelvis: Colonoscopy ordered for further evaluation. -Start Dicyclomine QID as needed. 2) Elevated liver enzymes: Prior lab workup showed positive DB with homogeneous pattern -1:160, hereditary hemochromatosis carrier state, and CAM fibrosure with S1-S2 (moderate steatosis)/but N0, F0. Transaminitis recently improved with unintentional weight loss. -Will continue to monitor her liver enzymes. At this point, I suspect NAFLD. Consider liver biopsy in the future if LFTs remain elevated despite weight loss or if she is unable to lose further weight. 3) Postive DB, homogeneous pattern: Can be seen in lupus or Sjogren's. She has frequent fatigue, joint pains, and dry skin. Will refer to rheumatology for further evaluation. 4) Prophylaxis: Patient received the 2nd (final) dose of the hepatitis A vaccination and the 3rd (final) dose of the hepatitis B vaccination in the office today. [email or web address] Not available 07/27/2022 10:53:52 08/06/2022 08/06/2022 31-year-old fema le with worsening abdominal pain, loose stools, and painful defecation. She has a recent history of abscess formation following hysterectomy superior to the vaginal cuff and is s/p treatment for this. CT performed 05/07/22 c/w colitis and enteritis. Repeat CT scheduled for 08/09/22. 1) Abdominal pain/Abnormal CT abd/pelvis: Colonoscopy ordered for further evaluation. -Continue Dicyclomine QID as needed. 2) Elevated liver enzymes: Prior lab workup showed positive DB with homogeneous pattern -1:160, hereditary hemochromatosis carrier state, and CAM fibrosure with S1-S2 (moderate steatosis)/but N0, F0. Transaminitis recently improved with unintentional weight loss. AST 41 ALT 82, Vitamin B12 1073 on 08/05/22. -Will continue to monitor her liver enzymes. At this point, I suspect NAFLD. Consider liver biopsy in the future if LFTs remain elevated despite weight loss or if she is unable to lose further weight. Discussed mediterranean diet. 3) Postive DB, homogeneous pattern: Can be seen in lupus or Sjogren's. She has frequent fatigue, joint pains, and dry skin. Referred to rheumatology for further evaluation. Her appointment is 08/16/22. 4) IBS-D -Xifaxan 550mg TID x14 days for diarrhea -Colonoscopy scheduled 08/26/22 [email or web address] Not available 08/06/2022 13:42:58 09/14/2022 09/14/2022 32-year-old fema le with: worsening abdominal pain, loose stools, and painful defecation. She has a recent history of abscess formation following hysterectomy superior to the vaginal cuff and is s/p treatment for this. CT performed 05/07/22 c/w colitis and enteritis. Repeat CT scheduled for 08/09/22. 1) Abdominal pain/Abnormal CT abd/pelvis: EGD/colonoscopy with biopsies was unremarkable. She has a history of abscess formation following hysterectomy, superior to the vaginal cuff and is s/p treatment for this. CT in the ED last week inidicated ovarian cysts vs. abscess. -Continue follow-up with gynecology. -Continue Dicyclomine QID as needed. -Bowel habits have improved. Continue miralax as needed. 2) Elevated liver enzymes: Prior lab workup showed positive DB with homogeneous pattern -1:160, hereditary hemochromatosis carrier state, and CAM fibrosure with S1-S2 (moderate steatosis)/but N0, F0. Transaminitis recently improved with unintentional weight loss. AST 41 ALT 82, Vitamin B12 1073 on 08/05/22. -Will continue to monitor her liver enzymes. Labs at [facility] last week showed AST elevated at 57 and ALT elevated at 61, which are mildly improved in the setting of mild unintentional weight loss. At this point, I suspect NAFLD. Consider liver biopsy in the future if LFTs remain elevated despite weight loss or if she is unable to lose further weight. Discussed mediterranean diet. 3) Postive DB, homogeneous pattern: Previously referred to Rheumatology. States she was not given a diagnosis. f/u 6 months [email or web address] Not available 09/14/2022 13:01:39 03/16/2023 03/16/2023 32-year-old fema le with abdominal pain and alternating bowel habits. She has a recent history of abscess formation following hysterectomy superior to the vaginal cuff and is s/p treatment for this. CT performed 05/07/22 c/w colitis and enteritis. 1) Abdominal pain/Abnormal CT abd/pelvis: EGD/colonoscopy with biopsies was unremarkable. She has a history of abscess formation following hysterectomy, superior to the vaginal cuff and is s/p treatment for this. She recently underwent left ovarian and follopian tube resection with some improvement in her symptoms. She has continued bowel alterations. -Start Linzess 72 mcg p.o. once daily for constipation. Samples provided. -Continue follow-up with gynecology. -Continue Dicyclomine QID as needed. 2) Elevated liver enzymes: Prior lab workup showed positive DB with homogeneous pattern -1:160, hereditary hemochromatosis carrier state, and CAM fibrosure with S1-S2 (moderate steatosis)/but N0, F0. Transaminitis recently improved with unintentional weight loss. AST 41 ALT 82, Vitamin B12 1073 on 08/05/22. This is felt to be due to NAFLD. She has done a nice job losing weight. She states she is unable to due labs today due to her daughter having a dentist appt. She plans to follow with her PCP for this. Consider liver biopsy in the future if LFTs remain elevated despite weight loss. -Healthy eating habits and regular exercise was counseled. 3) Postive DB, homogeneous pattern: Previously referred to Rheumatology. States she was not given a diagnosis. f/u 6 weeks to access response to Linzess [email or web address] Not available 03/16/2023 11:13:54 Plan of Treatment Reminders Order Date Submit Date Provider Last Modified By Organization Details Last Modified Time Details Appointments None recorded. Lab None recorded. Referral None recorded. Procedures None recorded. Surgeries None recorded. Imaging None recorded. Medication Orders Linzess 72 mcg capsule 2022 023 [place] [facility], [address], [address], 3 11:07:32 Xifaxan 550 mg tablet 2022 023 [email or web address] [facility], [address], [address], 3 13:23:14 dicyclomine 20 mg tablet 2022 023 [email or web address] [facility], [address], [address], 3 10:47:32 Patient TargetsNo targets recorded. Patient InstructionsNo instructions recorded. Reason for Referral None Reported. Results Created Date Observation Date Name Description Value Unit Range Abnormal Flag Note LastModifiedBy Organization Detail LastModifiedTime 04/20/1904/20/2022 CBC AUTO W DIFF WBC 6.9 K/uL 4.0-10 .5 Not Available [facility] ([facility]) [address] , [place], [address], 04/20/2022 11:48:56 04/20/19 23 04/20/2022 CBC AUTO W DIFF RBC 4.1 M/mm3 4.2-6. 4 low Not Available [facility] ([facility]) [address] , [place], [address], 04/20/2022 11:48:56 04/20/19 23 04/20/2022 CBC AUTO W DIFF HGB 11.3 gm/dL 12.5-1 6.0 low Not Available [facility] ([facility]) [address] , [place], [address], 04/20/2022 11:48:56 04/20/19 23 04/20/2022 CBC AUTO W DIFF HCT 36.4 % 37.0-4 7.0 low Not Available [facility] ([facility]) [address], [place], [address], 04/20/2022 11:48:56 04/20/19 23 04/20/2022 CBC AUTO W DIFF MCV 88.8 fL 78-100 Not Available [facility] ([facility]) [address], [place], [address], 04/20/2022 11:48:56 04/20/19 23 04/20/2022 CBC AUTO W DIFF MCH 27.6 pg 27-31 Not Available [facility] ([facility]) [address], [place], [address], 04/20/2022 11:48:56 04/20/19 23 04/20/2022 CBC AUTO W DIFF MCHC 31.0 g/dL 32-36 low Not Available [facility] ([facility]) [address], [place], [address], 04/20/2022 11:48:56 04/20/19 23 04/20/2022 CBC AUTO W DIFF RDW 14.7 % 11.5-1 4.0 high Not Available [facility] ([facility]) [address] [place], [address], 04/20/2022 11:48:56 04/20/19 23 04/20/2022 CBC AUTO W DIFF platelet count 258 K/uL 150-45 0 Not Available [facility] ([facility]) [address], [place], [address], 04/20/2022 11:48:56 04/20/19 23 04/20/2022 CBC AUTO W DIFF neutrophil% 69.3 % 43-65 high Not Available [facility] ([facility]) [address], [place], [address], 04/20/2022 11:48:56 04/20/19 23 04/20/2022 CBC AUTO W DIFF lymphocyte% 22.0 % 20.5-4 5.5 Not Available [facility] ([facility]) [address], [place], [address], 04/20/2022 11:48:56 04/20/19 23 04/20/2022 CBC AUTO W DIFF monocyte% 5.5 % 5.5-11 .7 Not Available [facility] ([facility]) [address] [place], [address], 04/20/2022 11:48:56 04/20/19 23 04/20/2022 CBC AUTO W DIFF eosinophil% 3.1 % 0.9-2. 9 high Not Available [facility] ([facility]) [address] [facility], [place], [address], 04/20/2022 11:48:56 04/20/19 23 04/20/2022 CBC AUTO W DIFF basophil% 0.1 % 0.2-1. 0 low Not Available [facility] ([facility]) [address] [place], [address], 04/20/2022 11:48:56 04/20/19 23 04/20/2022 CBC AUTO W DIFF neutrophil# 4.8 K/uL 2.2-4. 8 Not Available [facility] ([facility]) [address] [place], [address], 04/20/2022 11:48:56 04/20/19 23 04/20/2022 CBC AUTO W DIFF lymphocyte# 1.5 cell/ mcL 1.3-2. 9 Not Available [facility] ([facility]) [address] [place], [address], 04/20/2022 11:48:56 04/20/19 23 04/20/2022 CBC AUTO W DIFF monocyte# 0.4 cell/ mcL 0.3-0. 8 Not Available [facility] ([facility]) [address], [place], [address], 04/20/2022 11:48:56 04/20/19 23 04/20/2022 CBC AUTO W DIFF eosinophil# 0.2 cell/ mcL 0-0.2 Not Available [facility] ([facility]) [address] [facility], [place], [address], 04/20/2022 11:48:56 04/20/19 23 04/20/2022 CBC AUTO W DIFF basophil# 0.0 cell/ mcL 0.0-1. 0 Not Available [facility] ([facility]) [address] [facility], [place], [address], 04/20/2022 11:48:56 04/20/19 23 04/20/2022 CBC AUTO W DIFF manual differential NO Not Available [facility] ([facility]) [address] [facility], [place], [address], 04/20/2022 11:48:56 04/20/19 23 04/20/2022 IRON STUDY (IRON /TIBC /%SAT ) iron 126 mcg/m L 40-180 Not Available [facility] ([facility]) [address] [place], [address], 04/20/2022 12:30:51 04/20/19 23 04/20/2022 IRON STUDY (IRON /TIBC /%SAT ) TIBC 292 mcg/d L 250-45 0 Not Available [facility] ([facility]) [address] [place], [address], 04/20/2022 12:30:51 04/20/19 23 04/20/2022 IRON STUDY (IRON /TIBC /%SAT ) %sat 43 15-55 Not Available [facility] ([facility]) [address] , [place], [address], 04/20/2022 12:30:51 04/20/19 23 04/20/2022 GERALDO TIN ferritin, serum 145 NG/mL 3-244 Not Available [facility] ([facility]) [address] , [place], [address], 04/20/2022 12:32:04 04/20/19 23 04/20/2022 COMP METAB OLIC PANEL sodium 137 mmol/ L 136-14 5 Not Available [facility] ([facility]) [address] , [place], [address], 04/20/2022 12:32:05 04/20/19 23 04/20/2022 COMP METAB OLIC PANEL potassium 4.4 mmol/ L 3.6-5. 0 Not Available [facility] ([facility]) [address] , [place], [address], 04/20/2022 12:32:05 04/20/19 23 04/20/2022 COMP METAB OLIC PANEL chloride 100 mmol/ L 98-107 Not Available [facility] ([facility]) [address], [place], [address], 04/20/2022 12:32:05 04/20/19 23 04/20/2022 COMP METAB OLIC PANEL carbon dioxide 28.0 mmol/ L 21.0-3 2.0 Not Available [facility] ([facility]) [address] , [place], [address], 04/20/2022 12:32:05 04/20/19 23 04/20/2022 COMP METAB OLIC PANEL anion gap 13.4 Not Available [facility] ([facility]) [address], [place], [address], 04/20/2022 12:32:05 04/20/19 23 04/20/2022 COMP METAB OLIC PANEL glucose 88 mg/dL 70-120 Not Available [facility] ([facility]) [address], [place], [address], 04/20/2022 12:32:05 04/20/19 23 04/20/2022 COMP METAB OLIC PANEL BUN 13 mg/dL 7-18 Not Available [facility] ([facility]) [address], [place], [address], 04/20/2022 12:32:05 04/20/19 23 04/20/2022 COMP METAB OLIC PANEL creatinine 1.0 mg/dL 0.6-1. 3 Not Available [facility] ([facility]) [address] , [place], [address], 04/20/2022 12:32:05 04/20/19 23 04/20/2022 COMP METAB OLIC PANEL glomerular filtration rate >60 mlper min 60- Not Available [facility] ([facility]) [address], [place], [address], 04/20/2022 12:32:05 04/20/19 23 04/20/2022 COMP METAB OLIC PANEL total protein 7.2 g/dL 6.4-8. 2 Not Available [facility] ([facility]) [address] , [place], [address], 04/20/2022 12:32:05 04/20/19 23 04/20/2022 COMP METAB OLIC PANEL albumin 3.7 g/dL 3.4-5. 0 Not Available [facility] ([facility]) [address], [place], [address], 04/20/2022 12:32:05 04/20/19 23 04/20/2022 COMP METAB OLIC PANEL globulin 3.5 Not Available [facility] ([facility]) [address] , [place], [address], 04/20/2022 12:32:05 04/20/19 23 04/20/2022 COMP METAB OLIC PANEL alb/glob ratio 1.1 0.7-2 Not Available [facility] ([facility]) [address], [place], [address], 04/20/2022 12:32:05 04/20/19 23 04/20/2022 COMP METAB OLIC PANEL calcium 9.6 mg/dL 8.5-10 .5 Not Available [facility] ([facility]) [address], [place], [address], 04/20/2022 12:32:05 04/20/19 23 04/20/2022 COMP METAB OLIC PANEL bilirubin total 0.34 mg/dL 0.10-1 .00 Not Available [facility] ([facility]) [address] [facility], [place], [address], 04/20/2022 12:32:05 04/20/19 23 04/20/2022 COMP METAB OLIC PANEL AST (SGOT) 38 U/L 0-37 high Not Available [facility] ([facility]) [address] [facility], [place], [address], 04/20/2022 12:32:05 04/20/19 23 04/20/2022 COMP METAB OLIC PANEL ALT (SGPT) 43 U/L 0-65 Not Available [facility] ([facility]) [address] [facility], [place], [address], 04/20/2022 12:32:05 04/20/19 23 04/20/2022 COMP METAB OLIC PANEL alk phosphatase 84 U/L 46-116 Not Available [facility] ([facility]) [address] [facility], [place], [address], 04/20/2022 12:32:05 04/13/19 23 04/14/2022 elect isaiah soriano am No observ ation record ed. [facility] [address], [place], [address], 04/21/2022 14:37:17 04/28/19 23 04/26/2022 CT, abdom en + pelvi s, w/ contr ast No observ ation record ed. [email or web address] [facility] ([facility]) [address], [place], [address], 04/29/2022 08:32:02 Result Notes None recorded. Problems Name Problem SNOMED Code Status Onset Date Resolution Date Notes Provider Name and Address Organization Details Recorded Time Abdominal pain 18167512 Active 2022 Henna whelan, [place] - [facility] - [place] & [place] 3 10:58:39 Chest pain 72059752 Active 2022 Henna whelan, [place] - [facility] [place] & [place] 3 10:58:44 Dyspnea on exertion 27691216 Active 2022 Matthew Gordon MD [address] [facility], [place], [address] , [place] - [facility] - [place] & [place] 3 11:36:06 Cyst of ovary 14728091 Active 2022 Anastasia whelan, [place] - [facility] [place] & [place] 3 10:10:19 Loose stool 461313323 Active 2022 Joe Salmeron PA-C [address] [facility], [place], [address] , [place] - [facility] [place] & [place] 3 10:23:14 Pain associated with defecation 893809166 Active 2022 Joe Salmeron PA-C [address] [facility], [place], [address] , [place] - [facility] [place] & [place] 3 10:23:19 Homogeneous antinuclear antibody pattern 248688866 Active 2022 Joe Salmeron PA-C [address] [facility], [place], [address] , [place] - [facility] - [place] & [place] 3 10:24:55 Colitis 70672810 Active 2022 Joe Salmeron PA-C [address], [place], [address] , [place] - [facility] [place] & [place] 3 10:32:51 Increased liver function 22553810 Active 2022 Joe Salmeron PA-C [address], [place], [address] , [place] - [facility] - [place] & [place] 3 10:50:40 Non-alcoholic fatty liver 891388299 Active [address], [place], [address] , [place] - [facility] [place] & [place] 3 10:50:44 Irritable bowel syndrome with diarrhea 297615594 Active 2022 [address] , [place], [address] , [place] - [facility] [place] & [place] 3 11:07:26 Chronic idiopathic constipation 14819257 Active 2022 Joe Salmeron PA-C [address] , [place], [address] , [place] - [facility] [place] & [place] 3 11:06:57 Problem Notes None recorded. Procedures Surgical History Date Name Laterality Status Provider Name and Address Organization Details Recorded Time 04/11/19 23 Abdominal Surgery completed Blanca Toro [place] - [facility] - [place] & [place] 04/29/2022 10:59:15 04/11/19 23 Hysterectomy completed Anastasia CLARK - [facility] - [place] & [place] 07/27/2022 10:07:32 04/11/19 22 Abdominal Surgery completed Blanca Toro [place] - [facility] - [place] & [place] 04/29/2022 10:59:14 02/19/20 21 Date of Last Pap Smear completed Henna Leigh [place] - [facility] - [place] & [place] 04/13/2022 10:49:53 04/11/19 21 Abdominal Surgery completed Blanca CLARK - [facility] - [place] & [place] 04/29/2022 10:59:15 04/11/19 21 Other completed Henna CLRAK - [facility] - [place] & [place] 04/13/2022 10:49:53 04/11/19 19 Other completed Henna CLARK - [facility] - [place] & [place] 04/13/2022 10:49:53 04/11/19 16 Other completed Henna CLARK - [facility] - [place] & [place] 04/13/2022 10:49:53 04/11/19 15 Abdominal Surgery completed Blanca CLARK - [facility] - [place] & [place] 04/29/2022 10:59:14 04/11/19 14 Gastrointestinal Surgery completed Henna CLARK - [facility] - [place] & [place] 04/13/2022 10:49:53 04/11/19 13 Other completed Henna CLARK - [facility] - [place] & [place] 04/13/2022 10:49:53 Imaging Results None recorded. Procedure Notes None recorded. Medical Equipment None Reported. Allergies Allergen ID Allergen Name Allergen Category Reaction Reaction Severity Criticality Documentation Date Start Date Code Code System Note Provider Name and Address Organization Details Recorded Time 87721 latex environme nt,medica tion Not available Not available Not available 04/13/2022 02996 91 RxNorm Blanca whelan, [place] - [facility] & [place] 3 10:59:09 88429 rubber, unspecifi ed environme nt,medica tion Not available Not available Not available 04/20/2022 29700 5 UNK Blanca whelan, [place] - [facility] & [place] 3 10:59:09 90484 Latex (substanc e) environme nt,medica tion Not available Not available Not available 04/29/2022 55582 8007 SNOMED Blanca whelan, [place] - [facility] - [place] & [place] 3 10:59:09 Medications Name Sig Start Date Stop Date Status Note LastModified by Organization Details LastModified Time pain reliever 325mg tab TAKE 2 TABLETS BY MOUTH EVERY 6 HOURS NEEDED FOR MILD PAIN 1-3 PAIN SCALE active Not Available Not Available No t Available cyclobenzap rine 10 mg tablet TAKE 1 TABLET BY MOUTH TWICE DAILY NEEDED FOR MUSCLE SPASM 02/01 completed Not Available Not Available Not Available amoxicillin 500 mg capsule TAKE 1 CAPSULE BY MOUTH THREE TIMES DAILY FOR 10 DAYS 02/01 completed Not Available Not Available Not Available buspirone 5 mg tablet TAKE 1 TABLET BY MOUTH TWICE DAILY NEEDED FOR ANXIETY 04/20 completed Not Available Not Available Not Available terconazole 0.4 % vaginal cream INSERT 1 APPLICATO RFUL VAGINALLY , ONCE NIGHTLY, FOR 7 DAYS active Not Available Not Available No t Available promethazin e-DM 6.25 mg-15 mg/5 mL oral syrup TAKE 5 ML BY MOUTH THREE TIMES DAILY NEEDED FOR COUGH FOR 5 DAYS 02/01 completed Not Available Not Available Not Available venlafaxine ER 37.5 mg capsule,ext ended release 24 hr TAKE 1 CAPSULE BY MOUTH ONCE DAILY; DO NOT CRUCH OR CHEW 04/13 completed Not Available Not Available Not Available ketoconazol e 2 % shampoo APPLY TO WET SCALP, LATHER, LEAVE ON FOR 5 MINUTES, THEN RINSE, USE 2 TIMES PER WEEK active Not Available Not Available No t Available Retin-A 0.025 % topical cream APPLY A PEA SIZED AMOUNT TO CLEAN FACE EVERY EVENING DIRECTED active Not Available Not Available No t Available ibuprofen 800 mg tablet TAKE 1 TABLET BY MOUTH EVERY 8 HOURS active Not Available Not Available No t Available fluconazole 150 mg tablet TAKE 1 TABLET BY MOUTH NOW THEN REPEAT DOSE 7 DAYS LATER active Not Available Not Available No t Available valacyclovi r 1 gram tablet TAKE 1 TABLET BY MOUTH TWICE DAILY FOR 10 DAYS 04/13 completed Not Available Not Available Not Available ondansetron HCl 8 mg tablet TAKE 1 TABLET BY MOUTH EVERY 8 HOURS NEEDED FOR NAUSEA AND VOMITING 07/27 completed Not Available Not Available Not Available phenazopyri dine 200 mg tablet TAKE 1 TABLET BY MOUTH THREE TIMES DAILY 04/13 completed Not Available Not Available Not Available ondansetron HCl 4 mg tablet TAKE 1 TABLET BY MOUTH EVERY 8 HOURS NEEDED FOR NAUSEA active Not Available Not Available No t Available permethrin 5 % topical cream APPLY TO SKIN FROM HAIRLINE TO TOES AND WASH OFF FOR 8-10 HOURS LATER active Not Available Not Available No t Available metronidazo le 500 mg tablet TAKE 1 TABLET BY MOUTH TWICE DAILY FOR 10 DAYS 07/27 completed Not Available Not Available Not Available sulfamethox azole 800 mg-trimetho prim 160 mg tablet TAKE 1 TABLET BY MOUTH TWICE DAILY FOR 14 DAYS 07/27 completed Not Available Not Available Not Available tramadol 50 mg tablet TAKE 1 TABLET BY MOUTH EVERY 6 HOURS NEEDED FOR ABDOMINAL PAIN/DISC OMFORT active Not Available Not Available No t Available acetaminoph en 500 mg tablet TAKE ONE TABLET BY MOUTH EVERY 6 HOURS NEEDED FOR FEVER OR pain active Not Available Not Available No t Available oxycodone-a cetaminophe n 5 mg-325 mg tablet TAKE 1 TABLET BY MOUTH EVERY 6 HOURS IF NEEDED FOR MODERATE TO SEVERE PAIN 02/01 completed Not Available Not Available Not Available methocarbam ol 750 mg tablet TAKE 1 TABLET BY MOUTH EVERY 6 HOURS () NEEDED FOR MUSCLE SPASM 04/13 completed Not Available Not Available Not Available Lice Treatment (permethrin ) 1 % topical liquid active Not Available Not Available Not Available dicyclomine 20 mg tablet TAKE 1 TABLET BY MOUTH 4 TIMES DAILY BEFORE MEAL(S) active Not Available Not Available No t Available hydrocodone 7.5 mg-acetamin ophen 325 mg tablet TAKE 1 TABLET BY MOUTH EVERY 6 HOURS NEEDED FOR SEVERE PAIN FOR UP TO 15 DOSES 04/13 completed Not Available Not Available Not Available tobramycin 0.3 % eye drops INSTILL 1 DROP INTO THE EYE(S) EVERY 4 HOURS FOR 5 DAYS active Not Available Not Available No t Available promethazin e 25 mg tablet TAKE ONE TABLET BY MOUTH THREE TIMES DAILY NEEDED FOR NAUSEA AND VOMITING MAY CAUSE DROWSINES S active Not Available Not Available No t Available gabapentin 300 mg capsule TAKE 1 CAPSULE BY MOUTH THREE TIMES DAILY 07/27 completed Not Available Not Available Not Available simethicone 125 mg chewable tablet chew AND swallow 1 TABLET BY MOUTH EVERY DAY NEEDED FOR abdominal distentio n active Not Available Not Available No t Available ibuprofen 600 mg tablet TAKE 1 TABLET BY MOUTH EVERY 6 HOURS NEEDED FOR MILD PAIN SCALE 1-3 active Not Available Not Available No t Available levofloxaci n 500 mg tablet TAKE 1 TABLET BY MOUTH ONCE DAILY active Not Available Not Available No t Available levofloxaci n 750 mg tablet TAKE 1 TABLET BY MOUTH ONCE DAILY active Not Available Not Available No t Available methylpredn isolone 4 mg tablets in a dose pack TAKE BY MOUTH DIRECTED ON INSIDE OF PACKAGE 02/01 completed Not Available Not Available Not Available ketoconazol e 2 % topical cream APPLY LIBERALLY TO AFFECTED AREA TWICE A DAY NEEDED active Not Available Not Available No t Available bromphenira mine-pseudo ephedrine-D M 2 mg-30 mg-10 mg/5 mL oral syrup TAKE 5 ML BY MOUTH EVERY 6 HOURS NEEDED FOR COUGH 02/01 completed Not Available Not Available Not Available ondansetron 4 mg disintegrat ing tablet DISSOLVE 1 TABLET IN MOUTH EVERY 6 TO 8 HOURS NEEDED active Not Available Not Available No t Available cefdinir 300 mg capsule TAKE 1 CAPSULE BY MOUTH TWICE DAILY FOR 7 DAYS active Not Available Not Available No t Available naproxen 500 mg tablet TAKE 1 TABLET BY MOUTH TWICE DAILY WITH MEALS 04/13 completed Not Available Not Available Not Available amoxicillin 875 mg-potassiu m clavulanate 125 mg tablet TAKE 1 TABLET BY MOUTH TWICE DAILY FOR 5 DAYS 07/27 completed Not Available Not Available Not Available Ventolin HFA 90 mcg/actuati on aerosol inhaler INHALE 2 PUFFS BY MOUTH EVERY 4 HOURS NEEDED FOR CHEST SYMPTOMS: MAY USE 15 MINUTES PRE-EXERC ISE active Not Available Not Available No t Available oxycodone 5 mg tablet TAKE ONE TABLET BY MOUTH TWICE DAILY NEEDED FOR PAIN MAY CAUSE DROWSINES S active Not Available Not Available No t Available Vitamin C With Luba Hips 500 mg tablet TAKE 1 TABLET BY MOUTH TWICE DAILY active Not Available Not Available No t Available Vegetable Laxative 8.6 mg tablet TAKE 1 TABLET BY MOUTH ONCE DAILY active Not Available Not Available No t Available Jolessa 0.15 mg-30 mcg (91) tablets,3 month dose pack TAKE 1 TABLET BY MOUTH ONCE DAILY 02/01 completed Not Available Not Available Not Available FeroSul 325 mg (65 mg iron) tablet TAKE 1 TABLET BY MOUTH TWICE DAILY active Not Available Not Available No t Available dapsone 5 % topical gel APPLY THIN LAYER TOPICALLY TO AFFECTED AREA ONCE DAILY active Not Available Not Available No t Available Gavilyte-C 240 gram-22.72 gram-6.72 gram-5.84 gram oral solution USE DIRECTED PER OFFICE DIRECTION S active Not Available Not Available No t Available Xifaxan 550 mg tablet Take 1 tablet 3 times a day by oral route for 14 days. 2022 active Not Available Not Available Not Avai lable Probiotic active Not Available Not Keyana ilable Not Available Whiteside-Linyah 0.25 mg-0.035 mg tablet TAKE 1 TABLET BY MOUTH ONCE DAILY active Not Available Not Available No t Available naloxone 4 mg/actuatio n nasal spray ADMINISTE R A SINGLE SPRAY IN ONE NOSTRIL UPON SIGNS OF OPIOID OVERDOSE. CALL 911. REPEAT AFTER 2-3 MINUTES IF NO RESPONSE ALTERNATI NG NOSTRILS. 07/27 completed Not Available Not Available Not Available Linzess 72 mcg capsule Take 1 capsule by mouth once daily on an empty stomach, 30 minutes before food or coffee, 30 days active Not Available Not Available No t Available Orilissa 150 mg tablet TAKE ONE TABLET BY MOUTH EVERY DAY active Not Available Not Available No t Available Vitals Date Recorded Body height Provider Name an d Address Organization Details Last Updated DateTime 04/28/2022 165.1 cm Anastasia BARGER [facility] & [place] 04/28/2022 11:42:59 Date Recorded Body height Body mass index (BMI) Body weight Heart rate Systolic blood pressure Diastolic blood pressure Provider Name and Address Organization Details Last Updated DateTime 3 165.1 cm 25.1 kg/m2 91358.4 5 g 85 /min 124 mm[Hg] 82 mm[Hg] Anastasia BARGER [facility] & [place] 3 09:28:44 Date Recorded Body height Heart rate Systolic blood pressure Diastolic blood pressure Provider Name and Address Organization Details Last Updated DateTime 08/06/2022 165.1 cm 78 /min 110 mm[Hg] 78 mm[Hg] Anastasia BARGER [facility] & [place] 08/06/2022 10:14:43 Date Recorded Body height Body mass index (BMI) Body weight Oxygen saturation Oxygen saturation in Arterial blood by Pulse oximetry Heart rate Systolic blood pressure Diastolic blood pressure Provider Name and Address Organization Details Last Updated DateTime 3 157.48 cm 26.5 kg/m2 39138.2 5 g 96 % 96 % 63 /min 92 mm[Hg] 66 mm[Hg] Allie Ornelas [facility] & [place] 3 10:40:15 Date Recorded Body height Body mass index (BMI) Body weight Body temperature Oxygen saturation Oxygen saturation in Arterial blood by Pulse oximetry Heart rate Heart rate Systolic blood pressure Diastolic blood pressure Provider Name and Address Organization Details Last Updated DateTime 3 157.48 cm 25.4 kg/m2 06937.7 g 97.3 [degF] 98 % 98 % 78 /min 79 /min 100 mm[Hg] 69 mm[Hg] Radha Ryan [facility] & [place] 3 10:33:24 Social History Question Answer Notes LastModified by [employer] Details LastModified Time Tobacco Smoking Status Former Smoker Henna whelan, [facility] & [place] 04/13/2022 10:49:53 Do You Have An Advance Directive? No Information not available 04/13/2022 Are You Blind Or Do You Have Difficulty Seeing? No Information not available 04/13/2022 What Was The Date Of Your Most Recent Tobacco Screening? 08/05/2022 [email or web address] Information not available 08/06/2022 Are You Passively Exposed To Smoke? Yes Information not available 04/13/2022 How Much Tobacco Do You Smoke? 1 PPD Information not available 04/13/2022 How Many Years Have You Smoked Tobacco? 10 Information not available 04/13/2022 Sex: Unknown Functional Status Question Answer Note LastModified by Organizat ion Details LastModified Time Do you use any illicit or recreational drugs? No Information not available 04/13/2022 What is your level of alcohol consumption? None Information not available 04/13/2022 Do you or have you ever used smokeless tobacco? Never used smokeless tobacco Information not available 04/13/2022 What is your exercise level? Occasional Information not available 04/13/2022 Mental Status Question Answer Note LastModified by Organization D etails LastModified Time Do you feel stressed (tense, restless, nervous, or anxious, or unable to sleep at night)? [id number] Information not available 04/13/2022 Family History Nothing Reported Notes:family hx of cardiac d isease heart failure, OR,CAD, HTN, HLD Medical History No medical history recorded. Gynecological History Statement/Question Response Abnormal Pap N Flow Heavy Date of LMP 03/17/2021 Sexually Active? Y Menses Monthly N Duration of Flow (days) 7-8 Date of Last Pap Smear 02/18/2021 Current Control Method Tubal Ligat ion Age at Menarche 30 Obstetrics History GPAL:G 0 P 0 0 0 0 Immunizations Vaccine Type Date Status Note Provider Nam e and Address Organization Details Recorded Time Hep A, adult 2 completed Not Available [facility] 03/16/2023 10:23:08 Hep B, adult 2 completed Not Available [facility] 03/16/2023 10:23:08 Td (adult), 2 Lf tetanus toxoid, preservative free, adsorbed 4 completed Anastasia Harris null, [place] - [facility] [place] [facility] [place] 03/11/2022 10:38:45 Tdap 0 completed Anastasia Harris [place], [place] [facility] [place] [facility] [place] 03/11/2022 10:38:45 Hep B, adolescent or pediatric 4 completed Anastasia Harris null, [place] [facility] [place] [facility] [place] 03/11/2022 10:38:45 Hep B, adolescent or pediatric 4 completed Anastasia Harris [place] [facility] [place] [facility] [place] 03/11/2022 10:38:45 Tdap 9 completed Anastasia Harris null, [place] [facility] [place] [facility] [place] 03/11/2022 10:38:45 Hep B, adult 3 completed Not Available [facility] 03/16/2023 10:23:08 Hep A, adult 3 completed Not Available [facility] 03/16/2023 10:23:08 Hep B, adult 3 completed Not Available [facility] 03/16/2023 10:23:08 Past Encounters Encounter ID Performer Location Encounter Start Date Encounter Closed Date Diagnosis/Indication Diagnosis SNOMED-CT Code Diagnosis ICD10 Code Diagnosis Note [id number] Sharmin Mckeon NP [facility] [address] [address] 01/07/2022 10:52:25 01/07/2022 11:35:01 Liver enzymes level above reference range 555784548 R74.01 Will check labs. Avoid alcohol and NSAIDs. Liver ultrasound ordered. Follow-up in 4 weeks. [id number] Sharmin Mckeon NP [facility] [address] [address] 02/04/2022 09:56:34 02/04/2022 10:46:05 Steatotic liver disease 411165760 K76.0 - CAM fibrosure S1-S2- did have an episode of binge drinking for several months which has resolved and she no longer drinks alcohol- will initiate hepatitis- A and B vaccine series today- follow-up in 6 months (2 months for #2 Hep B vaccinatio n) [id number] Richard Connor MD [facility] [address] [place] [address] 02/11/2022 10:51:15 02/11/2022 11:10:33 [id number] Matthew Gordon MD [facility] [address] [facility] [address] [place] [address] 04/13/2022 10:48:34 04/13/2022 11:39:07 Dyspnea on exertion 88961961 R06.09 Will obtain echocardio gram to evaluate EF pulmonary pressure and diastolic function [id number] Sharmin Mckeon NP [facility] [address] [place] [address] 04/20/2022 09:55:48 04/20/2022 10:53:06 Steatotic liver disease 848789416 K76.0 - CAM fibrosure S1-S2- did have an episode of binge drinking for several months which has resolved and she no longer drinks alcohol- will initiate hepatitis- A and B vaccine series today- follow-up in 6 months (2 months for #2 Hep B vaccinatio n) Anemia 494879905 D64.9 - Continue Iron supplement s- Last hgb done 04/13 was 9.2, recheck today- Will call with results CT of abdo men abnormal [id number] 6987250 R93.5 - wall thickening and inflammati on of terminal ileum noted- consider colonoscop y in the future pending repeat abd ct scan- advised patient to call and schedule appointmen t after her abdominal CT scan for follow-up [id number] Joe Salmeron PA-C [facility] [address] [address] 04/28/2022 11:20:50 04/28/2022 11:57:40 Administration of viral vaccine 73031613 Z23 [id number] Joe Salmeron PA-C [facility] [address] [address] 07/27/2022 09:23:19 07/27/2022 10:36:04 Abdominal pain 67094248 R10.9 Loose stool 765899976 R1 9.5 Pain assoc iated with defecation 665971068 K62.89 Homogeneou s antinuclear antibody pattern 144159238 R76.8 Colitis 63335153 K52.9 Viral hepa titis A vaccination given 3364939457 9105 Z23 Viral hepa titis B vaccination given 1622186059 9103 Z23 Increased liver function 29127403 R94.5 Non-alcoho lic fatty liver 491049738 K76.0 [id number] Joe Salmeron PA-C [facility] [address] [address] 08/06/2022 09:59:21 08/06/2022 12:23:34 Abdominal pain 57797814 R10.9 Loose stool 923016466 R1 9.5 Pain assoc iated with defecation 890439086 K62.89 Homogeneou s antinuclear antibody pattern 575532422 R76.8 Colitis 98772606 K52.9 Increased liver function 43265241 R94.5 Non-alcoho lic fatty liver 762094649 K76.0 Irritable bowel syndrome with diarrhea 787633838 K58.0 [id number] Joe Salmeron PA-C [facility] [address] [place] [address] 09/14/2022 10:31:22 09/14/2022 11:11:54 Abdominal pain 93137909 R10.9 Loose stool 617478475 R1 9.5 Pain assoc iated with defecation 625967376 K62.89 Homogeneou s antinuclear antibody pattern 774528479 R76.8 Colitis 92500736 K52.9 Increased liver function 65402170 R94.5 Non-alcoho lic fatty liver 593233528 K76.0 Irritable bowel syndrome with diarrhea 084043901 K58.0 [id number] Joe Salmeron PA-C [facility] [address] [place] [address] 03/16/2023 10:22:01 03/16/2023 11:06:50 Abdominal pain 88705540 R10.9 Loose stool 794638714 R1 9.5 Pain assoc iated with defecation 998743968 K62.89 Homogeneou s antinuclear antibody pattern 145842877 R76.8 Colitis 18609760 K52.9 Increased liver function 65970619 R94.5 Non-alcoho lic fatty liver 826512944 K76.0 Irritable bowel syndrome with diarrhea 815910134 K58.0 Chronic id iopathic constipation 16526943 K59.04 Health Concerns Section Related Observation LastModified by Organization Detai ls LastModified Time None Recorded Concern Status LastModified by Organization Details LastModified Time None Recorded Advance Directives Directive N: Payers Insurance Date Sequence Insurance Name Policy Number Policy Fall Covered Member ID Fall Member ID Guarantor Name 10/29/2023 1 [employer] [place] ([place]MO[place] [id number] Simone Davila [id number] Simone Baird Giovanni 10/29/2023 1 [employer] [place] Simone Davila [id number] Simone Davila Notes Date Note Type Note Provider Name and Address Organization Details Recorded Time 07/27/2022 text/html Ms. Davila is a pleasant 31-year-old female who presents to the office today for follow-up regarding elevated liver enzymes felt to be due to CAM and for complaint of worsening abdominal cramping. She has a history of hysterectomy with subsequent abscess formation superior to the vaginal cuff late last year. She has been having increasing issues with abdominal discomfort since this time. She underwent vaginal ultrasound last month, which she states showed cysts on her ovaries. She reports significant abdominal discomfort with BMs. She is having frequent loose stools. She denies constipation or blood per rectum. CT performed in April showed colitis and enteritis. Joe Salmeron PA-C [address], [place], [address], [facility] & [place] 07/27/2022 10:54:07 08/06/2022 text/html PREVIOUS ( 3 HCarl Salmeron): Ms. Davila is a pleasant 31-year-old female who presents to the office today for follow-up regarding elevated liver enzymes felt to be due to CAM and for complaint of worsening abdominal cramping. She has a history of hysterectomy with subsequent abscess formation superior to the vaginal cuff late last year. She has been having increasing issues with abdominal discomfort since this time. She underwent vaginal ultrasound last month, which she states showed cysts on her ovaries. She reports significant abdominal discomfort with BMs. She is having frequent loose stools. She denies constipation or blood per rectum. CT performed in April showed colitis and enteritis. CURRENT (08/06/22 Hardik Salmeron): Ms. Davila is a pleasant 31-year-old female who presents to the office today for follow-up regarding elevated liver enzymes felt to be due to CAM. Recent lab work showed AST 41 ALT 82, Vitamin B12 1073 on 08/05/22. She is scheduled for colonoscopy 08/26/22. She is scheduled to see rheumatology on 08/16/22. She reports her headaches have improved with wearing her glasses. Joe Salmeron PA-C [address], [place], [address], [facility] & [place] 08/06/2022 13:43:16 09/14/2022 text/html PREVIOUS ( 3 Hardik Salmeron): Ms. Davila is a pleasant 31-year-old female who presents to the office today for follow-up regarding elevated liver enzymes felt to be due to CAM and for complaint of worsening abdominal cramping. She has a history of hysterectomy with subsequent abscess formation superior to the vaginal cuff late last year. She has been having increasing issues with abdominal discomfort since this time. She underwent vaginal ultrasound last month, which she states showed cysts on her ovaries. She reports significant abdominal discomfort with BMs. She is having frequent loose stools. She denies constipation or blood per rectum. CT performed in April showed colitis and enteritis. PREVIOUS: (08/06/22 Hardik Salmeron): Ms. Davila is a pleasant 31-year-old female who presents to the office today for follow-up regarding elevated liver enzymes felt to be due to CAM. Recent lab work showed AST 41 ALT 82, Vitamin B12 1073 on 08/05/22. She is scheduled for colonoscopy 08/26/22. She is scheduled to see rheumatology on 08/16/22. She reports her headaches have improved with wearing her glasses. CURRENT (09/14/22): Ms. Davila presents to the office today for procedure follow-up. She underwent EGD and colonoscopy on 08/26/22 in evaluation of abdominal pain and diarrhea. Findings were unremarkable with normal random colon biopsies, normal terminal ileum biopsy, normal duodenum biopsy, and chronic inactive gastritis on gastric biopsy. She was seen in the ED at [facility] last week due to acute abdominal pain and underwent CT with evidence of possible ovarian cyst vs. abscess. She states that she received antibiotics for possible sepsis. She is doing okay today. Her bowel habits are regulated better since the colonoscopy. She is schedule for follow-up with gynecology tomorrow Joestaci Salmeron PA-C [address] [facility], [place], [address], [place] - [facility] [place] & [place] 09/14/2022 13:01:54 03/16/2023 text/html PREVIOUS ( 3 Hardik Salmeron): Ms. Davila is a pleasant 31-year-old female who presents to the office today for follow-up regarding elevated liver enzymes felt to be due to CAM and for complaint of worsening abdominal cramping. She has a history of hysterectomy with subsequent abscess formation superior to the vaginal cuff late last year. She has been having increasing issues with abdominal discomfort since this time. She underwent vaginal ultrasound last month, which she states showed cysts on her ovaries. She reports significant abdominal discomfort with BMs. She is having frequent loose stools. She denies constipation or blood per rectum. CT performed in April showed colitis and enteritis. PREVIOUS: (08/06/22 Hardik Salmeron): Ms. Davila is a pleasant 31-year-old female who presents to the office today for follow-up regarding elevated liver enzymes felt to be due to CAM. Recent lab work showed AST 41 ALT 82, Vitamin B12 1073 on 08/05/22. She is scheduled for colonoscopy 08/26/22. She is scheduled to see rheumatology on 08/16/22. She reports her headaches have improved with wearing her glasses. PREVIOUS (09/14/22): Ms. Davila presents to the office today for procedure follow-up. She underwent EGD and colonoscopy on 08/26/22 in evaluation of abdominal pain and diarrhea. Findings were unremarkable with normal random colon biopsies, normal terminal ileum biopsy, normal duodenum biopsy, and chronic inactive gastritis on gastric biopsy. She was seen in the ED at [facility] last week due to acute abdominal pain and underwent CT with evidence of possible ovarian cyst vs. abscess. She states that she received antibiotics for possible sepsis. She is doing okay today. Her bowel habits are regulated better since the colonoscopy. She is schedule for follow-up with gynecology tomorrow. CURRENT (03/16/23): Ms. Davila returns to the office today for follow-up regarding abdominal pain and alternating constipation and diarrhea. She states she recently underwent right ovarian and fallopian tube resection. She is feeling a little better but still having alternating bowel habits. She had a CT abd/pelvis performed at [facility] on 02/25/23 that showed a low-lying cecum and left adnexal cysts. She notes frequent abdominal bloating. Joe Salmeron PA-C [address], [place], [address], [place] - [place] [facility] [place] & [place] 03/16/2023 11:14:10 OBGyn Episode No OBEpisode recorded.
--- OUTSIDE RECORDS SUMMARY | 2024-09-20 08:33 | XMS_ITS | Encounter Summary ---
Author Organization Healthcare Address [address] [place] [address] Care Team Providers Care Exhibit Preparator Name Role Phone Marsha Mora APRN Primary Care Provider [phone] Sharmin Awad APRN Primary Care Provider [phone] Encounter Details Date Type Department Care Team ([facility] st Contact Info) Description 04/11/2022 Outside Procedure External Location [address] [place] [address] Provider, Nithin [place] Social History Tobacco Use Types Packs/Day Years [...] often do you attend chur ch or adventist services? Never 10/15/2020 Do you belong to any clubs o r organizations such as catholic groups, unions, fraternal or athletic groups, or [...] Recorded Patient Health Questionnaire-2 Score 4 11/26/2021 [facility] of Occupat ional Health - Occupational Stress [...] in a retirement (including now)? No 10/15/2020 Comments No Sex [...] Description 11/14/2024 2:10 PM EDT Office Visit [facility] [address] [place] [address] Ginny Quan M, SORAIDA [address] [place] [address] documented as of this encounter Procedures Procedure Name Priority Date/Time Associated Diagnosis Comments CT ABDOMEN PELVIS W IV CONTRAST 04/11/2022 4:09 PM EST documented in this encounter Results * CT Abdomen Pelvis w IV Contrast (04/11/2022 4:09 PM EST) Anatomical Region Laterality Modality Abdomen, Pelvis Computed Tomogra phy 04/11/2022 4:09 PM EST Narrative 04/11/2022 6:50 PM EST [address] [place] [address] Name: JAMES RAMOS Exam Date: 04/11/2022 : 1990 Age 31 Gender: F Physician: HERBERT HERNANDEZ Facility: [facility] Facility HSV: Outpatient Exam: CT ABD PEL [...] Thank you for referring JAMES RAMOS to [facility]. Legally authenticated by ZULEYMA Gayle III 2022-04-11 18:37:58 Procedure Note Provider, Generic [place] - 04/11/2022 [id number] Name: JAMES RAMOS Exam Date: 04/11/2022 : 1990 Age 31 Gender: F Physician: HERBERT HERNANDEZ Facility: [facility] Facility HSV: Outpatient Exam: CT ABD PEL [...] Thank you for referring JAMES RAMOS to [facility]. Legally authenticated by ZULEYMA Gayle III 2022-04-11 18:37:58 us Generic Am[place] Provider IMG CT PROCEDURES Fi nal Result [...] documented as of this encounter Care Teams Exhibit Preparator Relationship Specialty Start Date End Date Marsha Mora APRN [address] [place] [address] PCP - General 08/22/20 10/17/22 Sharmin Awad APRN [address] [place] [address] PCP - General Family Medicine 10/18/22 documented as of this encounter
--- OUTSIDE RECORDS SUMMARY | 2024-09-20 08:33 | XMS_ITS | Referral Summary ---
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
--- NOTE | 2024-09-20 08:34 | XR_ITS ---
FINAL REPORT CLINICAL HISTORY: cervicalgia COMPARISON: None FINDINGS: Three views of the cervical spine were obtained. There is no fracture present. There is no malalignment. There is minimal anterior osteophyte formation at C5-6. The disc spaces are preserved. IMPRESSION: No acute process. Minimal osteophyte formation. Reviewed, Interpreted and Dictated by Storm Avitia MD Transcribed by Tracy Tavares Authenticated and [facility]
--- OUTSIDE RECORDS SUMMARY | 2024-09-20 08:34 | XMS_ITS | Encounter Summary ---
Author Organization Healthcare Address [address] [id number] Care Team Providers Care Lead Technician Name Role Phone Sharmin Awad APRN Primary Care Provider [phone] Encounter Details Date Type Department Care Team (Late st Contact Info) Description 08/29/2023 Orders Only External Location [address] [place] [address] Adriana Mathews [address] [id number] Social History Tobacco Use Types Packs/Day Years [...] often do you attend chur ch or faith services? Never 10/15/2020 Do you belong to any clubs o r organizations such as advent groups, unions, fraternal or athletic groups, or [...] Recorded Patient Health Questionnaire-2 Score 0 11/23/2022 [facility] - Occupational [...] place to sleep or slept in a halfway (including now)? No 10/15/2020 PHQ-2A Answer Date [...] Description 11/14/2024 2:10 PM EDT Office Visit [facility] Medicine Specialties [address], [address] [place] [address] Ginny Quan M, LEGAL PRACTICE MANAGER [address] [place] [address] documented as of this encounter [...] documented as of this encounter Care Teams Lead Technician Relationship Specialty Start Date End Date Sharmin Awad APRN [address] [place] [address] PCP - General Family Medicine 10/18/22 documented as of this encounter
--- OUTSIDE RECORDS SUMMARY | 2024-09-20 08:34 | XMS_ITS | Encounter Summary ---
Author Organization Healthcare Address [address] [place] [address] Care Team Providers Care Hat Binder Name Role Phone AbbyMarsha APRN Primary Care Provider [phone] Sharmin Awad APRN Primary Care Provider [phone] Encounter Details Date Type Department Care Team ([facility] st Contact Info) Description 08/09/2022 Outside Procedure External Location [address] [place] [address] Adarsh Gan MD [address] [place] [address] Social History Tobacco Use Types [...] often do you attend chur ch or mandaeism services? Never 10/15/2020 Do you belong to any clubs o r organizations such as methodist groups, unions, fraternal or athletic groups, or [...] Recorded Patient Health Questionnaire-2 Score 0 07/29/2022 [facility] Questionnaire Answer Date [...] place to sleep or slept in a usp (including now)? No 10/15/2020 Comments No Sex [...] Description 11/14/2024 2:10 PM EDT Office Visit [place] [facility] Medicine Specialties [address], [address] [place] [address] Ginny Quan, SHOW CARD LETTERER [address] [place] [address] documented as of this encounter Procedures Procedure Name Priority Date/Time Associated Diagnosis Comments CT ABDOMEN PELVIS W IV CONTRAST 08/09/2022 1:11 PM EDT documented in this encounter Results * CT Abdomen Pelvis w IV Contrast (08/09/2022 1:11 PM EDT) Anatomical Region Laterality Modality Abdomen, Pelvis Computed Tomogra phy 08/09/2022 1:11 PM EDT Narrative 08/09/2022 3:00 PM EDT [address] [address] Name: JAMES RAMOS Exam Date: 08/09/2022 : 1990 Age 31 Gender: F Physician: ADARSH GAN Facility: [facility] Facility HSV: Outpatient Exam: CT ABD PEL [...] Thank you for referring JAMES RAMOS to [facility]. Legally authenticated by JESS CABALLERO 2022-08-09 14:49:49 Procedure Note Provider, [facility] - 08/09/2022 [address] [id number] Name: JAMES RAMOS Exam Date: 08/09/2022 : 1990 Age 31 Gender: F Physician: ADARSH GAN Facility: [facility] Facility HSV: Outpatient Exam: CT ABD PEL [...] MERCADO 08/09/2022 Thank you for referring JAMES RAOMS to [facility]. Legally authenticated by JESS CABALLERO 2022-08-09 14:49:49 [...] documented as of this encounter Care Teams Hat Binder Relationship Specialty Start Date End Date Marsha Mora APRN [address] [place] [address] PCP - General 08/22/20 10/17/22 Sharmin Awad APRN [address] [place] [id number] PCP - General Family Medicine 10/18/22 documented as of this encounter
--- OUTSIDE RECORDS SUMMARY | 2024-09-20 08:34 | XMS_ITS | Encounter Summary ---
Author Organization Healthcare Address [address] [place] [address] Care Team Providers Care Practice Support Specialist Name Role Phone Abby, Marsha Nalini QUIGLEY Primary Care Provider [phone] Sharmin Awad APRN Primary Care Provider [phone] Encounter Details Date Type Department Care Team ([facility] st Contact Info) Description 04/26/2022 Outside Procedure External Location [address] [place] [address] Carter Conner MD [address] [place] [address] Social History Tobacco Use Types [...] often do you attend chur ch or nondenominational services? Never 10/15/2020 Do you belong to any clubs o r organizations such as buddhist groups, unions, fraternal or athletic groups, or [...] Recorded Patient Health Questionnaire-2 Score 4 11/26/2021 [facility] - Occupational Stress Questionnaire Answer Date [...] place to sleep or slept in a fpc (including now)? No 10/15/2020 Comments No Sex [...] Visit [facility]ties [address], [address] [place] [address] Ginny Quan, DELICATESSEN CLERK [address] [place] [address] documented as of this encounter Procedures Procedure Name Priority Date/Time Associated Diagnosis Comments CT ABDOMEN PELVIS W IV CONTRAST 04/26/2022 12:59 PM EST documented in this encounter Results * CT Abdomen Pelvis w IV Contrast (04/26/2022 12:59 PM EST) Anatomical Region Laterality Modality Abdomen, Pelvis Computed Tomogra phy 04/26/2022 12:5 9 PM EST Narrative 04/26/2022 2:56 PM EST [facility] [address] [place] [address] Name: JAMES RAMOS Exam Date: 04/26/2022 : 1990 Age 31 Gender: F Physician: CARTER CONNER Facility: [facility] Facility HSV: Outpatient Exam: CT ABD [...] Thank you for referring JAMES RAMOS to [facility]. Legally authenticated by POPE JAMES Arias 2022-04-26 14:45:02 Procedure Note Provider, Generic [place] - 04/26/2022 [place] [address] Name: JAMES RAMOS Exam Date: 04/26/2022 : 1990 Age 31 Gender: F Physician: CARTER CONENR Facility: [facility] Facility HSV: Outpatient Exam: CT ABD [...] Thank you for referring JAMES RAMOS to [facility]. Legally authenticated by POPE JAMES Arias [...] documented as of this encounter Care Teams Practice Support Specialist Relationship Specialty Start Date End Date Marsha Mora APRN [address] [place] [address] PCP - General 08/22/20 10/17/22 Sharmin Awad APRN [address] [place] [address] PCP - General Family Medicine 10/18/22 documented as of this encounter
--- OUTSIDE RECORDS SUMMARY | 2024-09-20 08:34 | XMS_ITS | Clinical Summary ---
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
--- OUTSIDE RECORDS SUMMARY | 2024-09-20 08:34 | XMS_ITS | Encounter Summary ---
Author Organization Healthcare Address [address] [place] [address] Care Team Providers Care Correspondence Representative Name Role Phone Marsha Mora APRN Primary Care Provider [phone] Sharmin Awad APRN Primary Care Provider [phone] Encounter Details Date Type Department Care Team ([facility] st Contact Info) Description 05/07/2022 Outside Procedure External Location [address] [place] [address] Provider, Nithin [place] Social History Tobacco Use Types Packs/Day Years [...] often do you attend chur ch or worship services? Never 10/15/2020 Do you belong to any clubs o r organizations such as sabianist groups, unions, fraternal or athletic groups, or [...] Recorded Patient Health Questionnaire-2 Score 4 11/26/2021 [facility] - Occupational [...] place to sleep or slept in a nursing home (including now)? No 10/15/2020 Comments No [...] Description 11/14/2024 2:10 PM EDT Office Visit [facility] Medicine Specialties [address], [address] [place] [address] Ginny Quan M, SORAIDA [address] [place] [address] documented as of this encounter Procedures Procedure Name Priority Date/Time Associated Diagnosis Comments CT ABDOMEN PELVIS W IV CONTRAST 05/07/2022 1:02 PM EST documented in this encounter Results * CT Abdomen Pelvis w IV Contrast (05/07/2022 1:02 PM EST) Anatomical Region Laterality Modality Abdomen, Pelvis Computed Tomogra phy 05/07/2022 1:02 PM EST Narrative 05/07/2022 2:55 [place] [address] Name: JAMES RAMOS Exam Date: 05/07/2022 : 1990 Age 31 Gender: F Physician: JUANCARLOS SALDAÑA Facility: [facility] Facility HSV: Outpatient Exam: CT ABD [...] Thank you for referring JAMES RAMOS to [facility]. Legally authenticated by JESS CABALLERO 2022-05-07 14:43:47 Procedure Note Provider, [facility] - 05/07/[address] [id number] Name: JAMES RAMOS Exam Date: 05/07/2022 : 1990 Age 31 Gender: F Physician: JUANCARLOS SALDAÑA Facility: [facility] Facility HSV: Outpatient Exam: CT ABD [...] Thank you for referring JAMES RAMOS to [facility]. Legally authenticated by JESS CABALLERO 2022-05-07 14:43:47 us Generic [place] Provider IMG CT PROCEDURES Fi nal Result [...] documented as of this encounter Care Teams Correspondence Representative Relationship Specialty Start Date End Date Marsha Mora APRN [address] [place] [phone] PCP - General 08/22/20 10/17/22 Sharmin Awad APRN [address] [place] [address] PCP - General Family Medicine 10/18/22 documented as of this encounter
--- OUTSIDE RECORDS SUMMARY | 2024-09-20 08:34 | XMS_ITS | Clinical Summary ---
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 Stevenson's the ED physician in [place] told him that the ultrasound was normal. [...] answers, or a second opinion with another CREATIVE SERVICES SPECIALIST and surgeon could be beneficial to help [...] abscess. - I called radiology yesterday at [facility] to discuss drain placement - they [...] often do you attend chur ch or sikh services? Never 10/15/2020 Do you belong to any clubs o r organizations such as scientologist groups, unions, fraternal or athletic groups, or [...] Recorded Patient Health Questionnaire-2 Score 0 05/16/2024 [facility] - [...] Description 11/14/2024 2:10 PM EDT Office Visit [place] [facility] Medicine Specialties [address], [address] [place] [address] Ginny Quan M, VACUUM APPLICATOR OPERATOR [address] [place] [address] Health Maintenance Due Date Last Done Comments [facility]-/Child/Adol SDOH Screenings 1990 [id number] Vaccine (#1) 08/12/1996 [facility]-Varicella Vaccines (1 of [...] 1/2 Differentiation (12/20/2023 12:07 PM EDT) Pathologist [facility] HIV 1 & 2 Antibody/Antigen Screen Non Reactive Non Reactive 12/20/2023 1:15 PM EDT [facility] Comment:Screening for HIV 1 & 2 antibodies, and P24 antigen is NONREACTIVE. No confirmatory testing is required. Blood Venous blood specimen / Unknown Venipuncture / Unknown 12/20/2023 12:07 PM EDT 12/20/2023 12:32 PM EDT Renetta Lopez MD LAB BLOOD ORDERABLES Final Resu lt Performing Organization Address City/[facility]/ZIP Co de Phone Number [facility] [address] [place] [address] * Acute Hepatitis Panel (06/23/2023 10:22 AM EDT) [facility] Hepatitis B Surf Antigen Negative Negative 06/23/2023 12:49 PM EDT [facility] Hepatitis C Antibody Negative Negative 06/23/2023 12:49 PM EDT [facility] Hepatitis A Antibody IgM Negative Negative 06/23/2023 12:49 PM EDT [facility] Hepatitis B Core Antibody IgM Negative Negative 06/23/2023 12:49 PM EDT [facility] Blood Venous blood specimen / Unknown Venipuncture / Unknown 06/23/2023 10:22 AM EDT 06/23/2023 10:22 AM EDT Ginny Quan APRN LAB BLOOD ORDERABLES Final Result Performing Organization Address City/[facility] Co de Phone Number [facility] [address] [place] [address] * (ABNORMAL) Pap Smear (03/03/2021 2:47 PM EST) Case Report Cytology Case: [id number] Authorizing Provider: Carter Conner MD Collected: 03/03/2021 1447 Ordering Location: Obstetrics & Gynecology Received: 03/04/2021 0837 First Screen: Faraz Wild, CT Pathologist: Rose Porter MD Specimen: ThinPrep Pap Test, Liquid-Based Cervical/Vagina l, CERVICAL/VAGINA L 03/16/2021 10:12 AM EST [facility] Interpretation ATYPICAL SQUAMOUS CELLS OF UNDETERMINED SIGNIFICANCE (ASCUS)(A) 03/16/2021 10:12 AM EST [facility] at 1012 EST Specimen Adequacy Satisfactory for evaluation; endocervical/tr ansformation zone component present. Slide imaged by the ThinPrep Imaging system and selected 22 sagastume reviewed then full manual screening. 03/16/2021 10:12 AM EST [facility] Cervical cytology is a screening [...] results is suggested (please call Microbiology at [phone] for results). 03/16/2021 10:12 AM EST [facility] Menstrual Status Cyclic 03/16/20 10:12 AM EST [facility] History of Hysterectomy Not Applicable 03/16/2021 10:12 AM EST [facility] Contraceptive History Not Applicable 03/16/2021 10:12 AM EST [facility] Last Menstrual Period 01/31/2021 03/16/2021 10:12 AM EST [facility] Clinical Information N92.0 - Menorrhagia with regular cycle [ICD-10-CM] 03/16/2021 10:12 AM EST [facility] Screening Type Routine Screen 2020 10:12 AM EST [facility] High Risk? No 03/16/2021 10:12 AM [facility] HPV Testing Requested? Request HPV Testing if ASCUS (Women 25 Years or Older) 03/16/2021 10:12 AM EST [facility] Previous Cancer History No 03/16/2021 10:12 AM EST [facility] Swab Vaginal and cervical cytologic material / Unknown Non-blood Collection / Unknown 03/03/2021 2:47 PM EST 03/04/2021 8:37 AM EST Carter Conner MD LAB CYTOLOGY ORDERABLES Final R esult [facility] [address] [place] [phone] from Last 3 Months or Most Recently Relevant to Health Maintenance Insurance [facility] MEDICAID Care Teams Flute Polisher Relationship Specialty Start Date End Date Sharmin Awad APRN [address] [place] [address] PCP - General Family Medicine 10/18/22
--- OUTSIDE RECORDS SUMMARY | 2024-09-20 08:34 | XMS_ITS | Encounter Summary ---
Author Organization Healthcare Address [address] [place] [address] Care Team Providers Care Branch Coordinator Name Role Phone Marsha Mora JAVA WEB APPLICATION DEVELOPER Primary Care Provider [phone] Sharmin Awad APRN Primary Care Provider [phone] Encounter Details Date Type Department Care Team ([facility] Contact Info) Description 01/20/2022 Outside Procedure External Location [address] [place] [address] Sharmin Lambert, SORAIDA [address] [place] [address] Social History Tobacco Use Types [...] often do you attend chur ch or jainism services? Never 10/15/2020 Do you belong to any clubs o r organizations such as evangelical groups, unions, fraternal or athletic groups, or [...] Questionnaire-2 Score 4 11/26/2021 [facility] - Occupational Stress Questionnaire Answer Date [...] place to sleep or slept in a custodial (including now)? No 10/15/2020 Comments No Sex [...] Description 11/14/2024 2:10 PM EDT Office Visit [facility] Medicine Specialties [address], [address] [place] [address] Ginny Quan, JAVA WEB APPLICATION DEVELOPER [address] [place] [address] documented as of this encounter Procedures Procedure Name Priority Date/Time Associated Diagnosis Comments US LIVER SCREEN 01/20/2022 9:56 AM EDT documented in this encounter Results * US Liver Screen (01/20/2022 9:56 AM EDT) Anatomical Region Laterality Modality Abdomen, Liver Ultrasound 01/20/2022 9:56 AM EDT Narrative 01/20/2022 11:[place] [address] Name: JAMES RAMOS Exam Date: 01/20/2022 : 1990 Age 31 Gender: F Physician: SHARMIN LAMBERT Facility: [facility] Facility HSV: Outpatient Exam: LIVER ULTRASOUND [...] Thank you for referring JAMES RAMOS to [facility]. Legally authenticated by CELINA ANAND 2022-01-20 11:18:05 Procedure Note Provider, Generic [place] - 01/20/2022 [place] [address] Name: JAMES RAMOS Exam Date: 01/20/2022 : 1990 Age 31 Gender: F Physician: SHARMIN LAMBERT Facility: [facility] Facility HSV: Outpatient Exam: LIVER ULTRASOUND [...] Thank you for referring JAMES RAMOS to [facility]. Legally authenticated by CELINA ANAND 2022-01-20 11:18:05 [...] documented as of this encounter Care Teams Branch Coordinator Relationship Specialty Start Date End Date Marsha Mora APRN [address] [place] [address] PCP - General 08/22/20 10/17/22 Sharmin Awad APRN [address] [place] [address] PCP - General Family Medicine 10/18/22 documented as of this encounter
== END 2024-09-20 23:59 | disposition home or self-care (01) ==
LOC: RAD 08:32
PROVIDERS: PCP Nurse Practitioner Family; Visit Provider Nurse Practitioner Family
DX: M25.78 Osteophyte, vertebrae (principal)
CPT/HCPCS: 72040

== ENCOUNTER 2024-09-21 13:00 | Outpatient (CLI) | payer MEDICAID, SELFPAY ==
[2024-09-21 17:20] LABS: Microscopic, Urine URINE MICROSCOPIC (MICROSCOPIC)
[2024-09-21 17:59] LABS: Appearance,Urine CLEAR (Clear); Bilirubin,Urine Negative (Negative); Blood, Urine Negative (Negative); Color,Urine YELLOW (Yellow); Glucose,Urine (UA) Negative (Negative); Ketones,Urine Negative (Negative); Leukocyte Esterase,Urine Negative (Negative); Nitrate,Urine Negative (Negative); Protein,Urine Negative (Negative); Urobilinogen,Urine 0.2 EU/dl (0.2)
[2024-09-21 18:37] LABS: RBC,Urine Occasional #/hpf (0-3); WBC,Urine Occasional #/hpf (0-3)
--- OUTSIDE RECORDS SUMMARY | 2024-09-21 22:20 | XMS_ITS | Encounter Summary ---
Author Organization Healthcare Address [address] [place] [address] Care Team Providers Care Senior Medical Writer Name Role Phone Marsha Mora APRN Primary Care Provider [phone] Sharmin Awad APRN Primary Care Provider [phone] Encounter Details Date Type Department Care Team ([facility] st Contact Info) Description 04/11/2022 Outside Procedure External Location [address] [place] [address] Provider, Nithin [place] Social History Tobacco Use Types Packs/Day Years [...] often do you attend chur ch or lutheran services? Never 10/15/2020 Do you belong to any clubs o r organizations such as worship groups, unions, fraternal or athletic groups, or [...] Recorded Patient Health Questionnaire-2 Score 4 11/26/2021 [facility] Occupat ional Health - Occupational [...] place to sleep or slept in a fci (including now)? No 10/15/2020 Comments No Sex [...] Description 11/14/2024 2:10 PM EDT Office Visit [facility] Medicine Specialties [address], [address] [place] [address] Ginny Quan M, SORAIDA [address] [place] [address] documented as of this encounter Procedures Procedure Name Priority Date/Time Associated Diagnosis Comments CT ABDOMEN PELVIS W IV CONTRAST 04/11/2022 4:09 PM EST documented in this encounter Results * CT Abdomen Pelvis w IV Contrast (04/11/2022 4:09 PM EST) Anatomical Region Laterality Modality Abdomen, Pelvis Computed Tomogra phy 04/11/2022 4:09 PM EST Narrative 04/11/2022 6:50 PM EST [address] [place] [address] Name: JAMES RAMOS Exam Date: 04/11/2022 : 1990 Age 31 Gender: F Physician: HERBERT HERNANDEZ Facility: [facility] Facility HSV: Outpatient Exam: CT ABD [...] Thank you for referring JAMES RAMOS to [facility]. Legally authenticated by ZULEYMA Gayle III 2022-04-11 18:37:58 Procedure Note Provider, Generic [place] - 04/11/2022 [place] [id number] Name: JAMES RAMOS Exam Date: 04/11/2022 : 1990 Age 31 Gender: F Physician: HERBERT HERNANDEZ Facility: [facility] Facility HSV: Outpatient Exam: CT ABD [...] Thank you for referring JAMES RAMOS to [facility]. Legally authenticated by ZULEYMA Gayle III 2022-04-11 18:37:58 us Generic [place] Provider IMG CT PROCEDURES Fi nal Result [...] as of this encounter Care Teams Senior Medical Writer Relationship Specialty Start Date End Date Marsha Mora APRN [address] [place] [address] PCP - General 08/22/20 10/17/22 Sharmin Awad APRN [address] [place] [address] PCP - General Family Medicine 10/18/22 documented as of this encounter
--- OUTSIDE RECORDS SUMMARY | 2024-09-21 22:20 | XMS_ITS | Encounter Summary ---
Author Organization Healthcare Address [address] [id number] Care Team Providers Care Chief Customer Officer Name Role Phone Sharmin Awad APRN Primary Care Provider [phone] Encounter Details Date Type Department Care Team (Late st Contact Info) Description 08/29/2023 Orders Only External Location [address] [place] [address] Adriana Mathews [address] [id number] Social History Tobacco Use Types Packs/Day Years [...] often do you attend chur ch or mu-ism services? Never 10/15/2020 Do you belong to any clubs o r organizations such as caodaism groups, unions, fraternal or athletic groups, or [...] Recorded Patient Health Questionnaire-2 Score 0 11/23/2022 [facility] Occupat ional Health - [...] place to sleep or slept in a detention (including now)? No 10/15/2020 PHQ-2A Answer Date [...] Description 11/14/2024 2:10 PM EDT Office Visit [facility] Medicine Specialties [address] [place] [address] Ginny Quan M, PRECISION LATHE OPERATOR [address] [place] [address] documented as of this encounter [...] documented as of this encounter Care Teams Chief Customer Officer Relationship Specialty Start Date End Date Sharmin Awad APRN [address] [place] [address] PCP - General Family Medicine 10/18/22 documented as of this encounter
--- OUTSIDE RECORDS SUMMARY | 2024-09-21 22:20 | XMS_ITS | Referral Summary ---
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
--- OUTSIDE RECORDS SUMMARY | 2024-09-21 22:20 | XMS_ITS | Encounter Summary ---
Author Organization Healthcare Address [address] [place] [address] Care Team Providers Care Nurse Wound Name Role Phone Marsha Mora RENTAL COUNTER CLERK Primary Care Provider [phone] Sharmin Awad APRN Primary Care Provider [phone] Encounter Details Date Type Department Care Team ([facility] Contact Info) Description 01/20/2022 Outside Procedure External Location [address] [place] [address] Sharmin Lambert, SORAIDA [address] [place] [address] Social History Tobacco Use Types [...] often do you attend chur ch or gnosticism services? Never 10/15/2020 Do you belong to [...] Recorded Patient Health Questionnaire-2 Score 4 11/26/2021 [facility] - Occupational Stress Questionnaire Answer [...] Description 11/14/2024 2:10 PM EDT Office Visit [facility] Medicine Specialties [address], [address] [place] [address] Ginny Quan, RENTAL COUNTER CLERK [address] [place] [address] documented as of this encounter Procedures Procedure Name Priority Date/Time Associated Diagnosis Comments US LIVER SCREEN 01/20/2022 9:56 AM EDT documented in this encounter Results * US Liver Screen (01/20/2022 9:56 AM EDT) Anatomical Region Laterality Modality Abdomen, Liver Ultrasound 01/20/2022 9:56 AM EDT Narrative 01/20/2022 11:29 [place] [address] Name: JAMES RAMOS Exam Date: 01/20/2022 : 1990 Age 31 Gender: F Physician: SHARMIN LAMBERT Facility: [facility] Facility HSV: Outpatient Exam: LIVER ULTRASOUND [...] Thank you for referring JAMES RAMOS to [facility]. Legally authenticated by CELINA ANAND 2022-01-20 11:18:05 Procedure Note Provider, Generic [place] - 01/20/2022 [place] [address] Name: JAMES RAMOS Exam Date: 01/20/2022 : 1990 Age 31 Gender: F Physician: SHARMIN LAMBERT Facility: [facility] Facility HSV: Outpatient Exam: LIVER ULTRASOUND [...] Thank you for referring JAMES RAMOS to [facility]. Legally authenticated by CELINA ANAND 2022-01-20 [...] documented as of this encounter Care Teams Nurse Wound Relationship Specialty Start Date End Date Marsha Mora APRN [address] [place] [address] PCP - General 08/22/20 10/17/22 Sharmin Awad APRN [address] [place] [address] PCP - General Family Medicine 10/18/22 documented as of this encounter
--- OUTSIDE RECORDS SUMMARY | 2024-09-21 22:20 | XMS_ITS | Encounter Summary ---
Author Organization Healthcare Address [address] [place] [address] Care Team Providers Care Mental Health Professional Name Role Phone Abby, Marsha Nalini QUIGLEY Primary Care Provider [phone] Sharmin Awad APRN Primary Care Provider [phone] Encounter Details Date Type Department Care Team ([facility] st Contact Info) Description 04/26/2022 Outside Procedure External Location [address] [place] [address] Carter Conner MD [address] [place] [address] Social History Tobacco Use Types [...] often do you attend chur ch or orthodox services? Never 10/15/2020 Do you belong to any clubs o r organizations such as spiritism groups, unions, fraternal or athletic groups, or [...] Recorded Patient Health Questionnaire-2 Score 4 11/26/2021 [facility] - Occupational Stress Questionnaire Answer Date [...] place to sleep or slept in a half-way (including now)? No 10/15/2020 Comments No Sex [...] Description 11/14/2024 2:10 PM EDT Office Visit [facility] Medicine Specialties [address], [address] [place] [address] Ginny Quan, PAINT STOCKMAN [address] [place] [address] documented as of this encounter Procedures Procedure Name Priority Date/Time Associated Diagnosis Comments CT ABDOMEN PELVIS W IV CONTRAST 04/26/2022 12:59 PM EST documented in this encounter Results * CT Abdomen Pelvis w IV Contrast (04/26/2022 12:59 PM EST) Anatomical Region Laterality Modality Abdomen, Pelvis Computed Tomogra phy 04/26/2022 12:5 9 PM EST Narrative 04/26/2022 2:56 PM EST [facility] [address] [place] [address] Name: JAMES RAMOS Exam Date: 04/26/2022 : 1990 Age 31 Gender: F Physician: CARTER CONNER Facility: [facility] Facility HSV: Outpatient Exam: CT ABD [...] Thank you for referring JAMES RAMOS to [facility]. Legally authenticated by POPE JAMES Arias 2022-04-26 14:45:02 Procedure Note Provider, Generic [place] - 04/26/2022 [place] [address] Name: JAMES RAMOS Exam Date: 04/26/2022 : 1990 Age 31 Gender: F Physician: CARTER CONNER Facility: [facility] Facility HSV: Outpatient Exam: CT ABD [...] Thank you for referring JAMES RAMOS to [facility]. Legally authenticated by POPE JAMES Arias [...] documented as of this encounter Care Teams Mental Health Professional Relationship Specialty Start Date End Date Marsha Mora APRN [address] [place] [address] PCP - General 08/22/20 10/17/22 Sharmin Awad APRN [address] [place] [address] PCP - General Family Medicine 10/18/22 documented as of this encounter
--- OUTSIDE RECORDS SUMMARY | 2024-09-21 22:20 | XMS_ITS | Clinical Summary ---
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
--- OUTSIDE RECORDS SUMMARY | 2024-09-21 22:20 | XMS_ITS | Clinical Summary ---
Author Organization [facility] Address [address] [place] [address] Care Team Providers Care Fitter Hand Name Role Phone Sharmin Awad APRN Primary Care Provider [phone] Allergies Active Allergy Reactions Criticality Noted Date [...] reaction to retinal in past - has retirement plan specialist - we discussed that OCPs could help [...] from Dr. Stevenson's the ED physician in [place] told him that the ultrasound was normal. [...] or a second opinion with another ELECTRICAL PROSPECTOR and surgeon could be beneficial to help [...] abscess. - I called radiology yesterday at [facility] to discuss drain placement - they are [...] often do you attend chur ch or religion services? Never 10/15/2020 Do you belong to any clubs o r organizations such as episcopalian groups, unions, fraternal or athletic groups, or [...] Recorded Patient Health Questionnaire-2 Score 0 05/16/2024 [facility] Occupat ional Health - Occupational [...] place to sleep or slept in a mcc (including now)? No 10/15/2020 PHQ-2A Answer Date [...] Description 11/14/2024 2:10 PM EDT Office Visit [place] [facility] Medicine Specialties [address], [address] [place] [address] Ginny Quan M, ELECTRICAL CAD DESIGNER [address] [place] [address] Health Maintenance Due Date Last Done Comments [facility]-/Child/Adol SDOH Screenings 1990 JSI-[id number]-64 Vaccine (#1) 08/12/1996 [facility]-Varicella Vaccines (1 of [...] 1/2 Differentiation (12/20/2023 12:07 PM EDT) Pathologist [facility] HIV 1 & 2 Antibody/Antigen Screen Non Reactive Non Reactive 12/20/2023 1:15 PM EDT [facility] Comment:Screening for HIV 1 & 2 antibodies, and P24 antigen is NONREACTIVE. No confirmatory testing is required. Blood Venous blood specimen / Unknown Venipuncture / Unknown 12/20/2023 12:07 PM EDT 12/20/2023 12:32 PM EDT Renetta Lopez MD LAB BLOOD ORDERABLES Final Resu lt Performing Organization Address City/[facility]/ZIP Co de Phone Number [facility] [address] [place] [address] * Acute Hepatitis Panel (06/23/2023 10:22 AM EDT) [facility] Hepatitis B Surf Antigen Negative Negative 06/23/2023 12:49 PM EDT [facility] Hepatitis C Antibody Negative Negative 06/23/2023 12:49 PM EDT [facility] Hepatitis A Antibody IgM Negative Negative 06/23/2023 12:49 PM EDT [facility] Hepatitis B Core Antibody IgM Negative Negative 06/23/2023 12:49 PM EDT [facility] Blood Venous blood specimen / Unknown Venipuncture / Unknown 06/23/2023 10:22 AM EDT 06/23/2023 10:22 AM EDT Ginny Quan APRN LAB BLOOD ORDERABLES Final Result Performing Organization Address City/[facility] Co de Phone Number [facility] [address] [place] [address] * (ABNORMAL) Pap Smear (03/03/2021 2:47 PM EST) Case Report Cytology Case: [id number] Authorizing Provider: Carter Conner MD Collected: 03/03/2021 1447 Ordering Location: Obstetrics & Gynecology Received: 03/04/2021 0837 First Screen: Faraz Wild, [place] Pathologist: Rose Porter MD Specimen: ThinPrep Pap Test, Liquid-Based Cervical/Vagina l, CERVICAL/VAGINA L 03/16/2021 10:12 AM EST [facility] Interpretation ATYPICAL SQUAMOUS CELLS OF UNDETERMINED SIGNIFICANCE (ASCUS)(A) 03/16/2021 10:12 AM EST [facility] at 1012 EST Specimen Adequacy Satisfactory for evaluation; endocervical/tr ansformation zone component present. Slide imaged by the ThinPrep Imaging system and selected 22 sagastume reviewed then full manual screening. 03/16/2021 10:12 AM EST [facility] Cervical cytology is a screening [...] results is suggested (please call Microbiology at [phone] for results). 03/16/2021 10:12 AM EST [facility] Menstrual Status Cyclic 03/16/20 10:12 AM EST [facility] History of Hysterectomy Not Applicable 03/16/2021 10:12 AM EST [facility] Contraceptive History Not Applicable 03/16/2021 10:12 AM EST [facility] Last Menstrual Period 01/31/2021 03/16/2021 10:12 AM EST [facility] Clinical Information N92.0 - Menorrhagia with regular cycle [ICD-10-CM] 03/16/2021 10:12 AM EST [facility] Screening Type Routine Screen 2020 10:12 AM EST [facility] High Risk? No 03/16/2021 10:12 AM [facility] HPV Testing Requested? Request HPV Testing if ASCUS (Women 25 Years or Older) 03/16/2021 10:12 AM EST [facility] Previous Cancer History No 03/16/2021 10:12 AM EST [facility] Swab Vaginal and cervical cytologic material / Unknown Non-blood Collection / Unknown 03/03/2021 2:47 PM EST 03/04/2021 8:37 AM EST Carter Conner MD LAB CYTOLOGY ORDERABLES Final R esult [facility] [address] [place] [phone] from Last 3 Months or Most Recently Relevant to Health Maintenance Insurance [facility] MEDICA[facility] Care Teams Fitter Hand Relationship Specialty Start Date End Date Sharmin Awad APRN [address] [place] [address] PCP - General Family Medicine 10/18/22
--- OUTSIDE RECORDS SUMMARY | 2024-09-21 22:20 | XMS_ITS | Encounter Summary ---
Author Organization Healthcare Address [address] [place] [address] Care Team Providers Care Managed Care Coordinator Name Role Phone AbbyMarsha APRN Primary Care Provider [phone] Sharmin Awad APRN Primary Care Provider Encounter Details Date Type Department Care Team ([facility] st Contact Info) Description 08/09/2022 Outside Procedure External Location [address] [place] [address] Adarsh Gan MD [address] [place] [address] Social History Tobacco Use Types [...] Recorded Patient Health Questionnaire-2 Score 0 07/29/2022 [facility] - Occupational Stress Questionnaire Answer Date [...] place to sleep or slept in a residential (including now)? No 10/15/2020 Comments No Sex [...] Description 11/14/2024 2:10 PM EDT Office Visit [place] [facility] Medicine Specialties [address], [address] [place] [address] Ginny Quan, MULTIPLE SPINDLE ROUTER OPERATOR [address] [place] [address] documented as of this encounter Procedures Procedure Name Priority Date/Time Associated Diagnosis Comments CT ABDOMEN PELVIS W IV CONTRAST 08/09/2022 1:11 PM EDT documented in this encounter Results * CT Abdomen Pelvis w IV Contrast (08/09/2022 1:11 PM EDT) Anatomical Region Laterality Modality Abdomen, Pelvis Computed Tomogra phy 08/09/2022 1:11 PM EDT Narrative 08/09/2022 3:00 PM EDT [address] [address] Name: JAMES RAMOS Exam Date: 08/09/2022 : 1990 Age 31 Gender: F Physician: ADARSH GAN Facility: [facility] Facility HSV: Outpatient Exam: CT [...] Thank you for referring JAMES RAMOS to [facility]. Legally authenticated by JESS CABALLERO 2022-08-09 14:49:49 Procedure Note Provider, [facility] - 08/09/2022 [place] [id number] Name: JAMES RAMOS Exam Date: 08/09/2022 : 1990 Age 31 Gender: F Physician: ADARSH GAN Facility: [facility] Facility HSV: Outpatient Exam: CT [...] Thank you for referring JAMES RAMOS to [facility]. Legally authenticated by JESS CABALLERO 2022-08-09 [...] documented as of this encounter Care Teams Managed Care Coordinator Relationship Specialty Start Date End Date Marsha Mora APRN [address] [place] [address] PCP - General 08/22/20 10/17/22 Sharmin Awad APRN [address] [place] [address] PCP - General Family Medicine 10/18/22 documented as of this encounter
--- OUTSIDE RECORDS SUMMARY | 2024-09-21 22:20 | XMS_ITS | Encounter Summary ---
Author Organization Healthcare Address [address] [place] [address] Care Team Providers Care Professor Of Communication And Writing Name Role Phone Marsha Mora APRN Primary Care Provider [phone] Sharmin Awad APRN Primary Care Provider [phone] Encounter Details Date Type Department Care Team ([facility] st Contact Info) Description 04/11/2022 Outside Procedure External Location [address] [place] [address] Provider, Nithin [place] Social History Tobacco Use Types Packs/Day Years [...] any clubs o r organizations such as moravian groups, unions, fraternal or athletic groups, or [...] Recorded Patient Health Questionnaire-2 Score 4 11/26/2021 [facility] Occupat ional Health - Occupational Stress [...] Description 11/14/2024 2:10 PM EDT Office Visit [facility] Medicine Specialties [address], [address] [place] [address] Ginny Quan M, SORAIDA [address] [place] [address] documented as of this encounter Procedures Procedure Name Priority Date/Time Associated Diagnosis Comments XR CHEST 1 VIEW 04/11/2022 4:09 PM EST documented in this encounter Results * XR Chest 1 View (04/11/2022 4:09 PM EST) Anatomical Region Laterality Modality Chest Digital Radiogra phy 04/11/2022 4:09 PM EST Narrative 04/12/2022 8:53 [place] [address] Name: JAMES RAMOS Exam Date: 04/11/2022 : 1990 Age 31 Gender: F Physician: HERBERT HERNANDEZ Facility: [facility] Facility HSV: Outpatient Exam: CHEST PORTABLE [...] Thank you for referring JAMES RAMOS to [facility]. Legally authenticated by POPE JAMES Arias 2022-04-12 08:42:01 Procedure Note Provider, Generic [place] - 04/12/2022 [place] [address] Name: JAMES RAMOS Exam Date: 04/11/2022 : 1990 Age 31 Gender: F Physician: HERBERT HERNANDEZ Facility: [facility] Facility HSV: Outpatient Exam: CHEST PORTABLE [...] Thank you for referring JAMES RAMOS to [facility]. Legally authenticated by POPE JAMES Arias 2022-04-12 08:42:01 us Generic [place] Provider IMG XR PROCEDURES Fi nal Result [...] documented as of this encounter Care Teams Professor Of Communication And Writing Relationship Specialty Start Date End Date Marsha Mora APRN [address] [place] [address] PCP - General 08/22/20 10/17/22 Sharmin Awad APRN [address] [place] [address] PCP - General Family Medicine 10/18/22 documented as of this encounter
--- OUTSIDE RECORDS SUMMARY | 2024-09-21 22:20 | XMS_ITS | Encounter Summary ---
Author Organization Healthcare Address [address] [place] [address] Care Team Providers Care Service Provider Name Role Phone Marsha Mora APRN Primary Care Provider [phone] Sharmin Awad APRN Primary Care Provider [phone] Encounter Details Date Type Department Care Team ([facility] st Contact Info) Description 05/07/2022 Outside Procedure External Location [address] [place] [address] Provider, Nithin [place] Social History Tobacco Use Types Packs/Day Years [...] often do you attend chur ch or cheondoism services? Never 10/15/2020 Do you belong to any clubs o r organizations such as gnosticism groups, unions, fraternal or athletic groups, or [...] Patient Health Questionnaire-2 Score 4 11/26/2021 [facility] Occupat ional Health - [...] place to sleep or slept in a senior care (including now)? No 10/15/2020 Comments No Sex [...] Visit [facility] Medicine Specialties [address], [address] [place] [address] Ginny Quan M, SORAIDA [address] [place] [address] documented as of this encounter Procedures Procedure Name Priority Date/Time Associated Diagnosis Comments CT ABDOMEN PELVIS W IV CONTRAST 05/07/2022 1:02 PM EST documented in this encounter Results * CT Abdomen Pelvis w IV Contrast (05/07/2022 1:02 PM EST) Anatomical Region Laterality Modality Abdomen, Pelvis Computed Tomogra phy 05/07/2022 1:02 PM EST Narrative 05/07/2022 2:55 [place] [address] Name: JAMES RAMOS Exam Date: 05/07/2022 : 1990 Age 31 Gender: F Physician: JUANCARLOS SALDAÑA Facility: [facility] Facility HSV: Outpatient Exam: CT [...] for referring JAMES RAMOS to [facility]. Legally authenticated by JESS CABALLERO 2022-05-07 14:43:47 Procedure Note Provider, [facility] - 05/07/2022 [place] [id number] Name: JAMES RAMOS Exam Date: 05/07/2022 : 1990 Age 31 Gender: F Physician: JUANCARLOS SALDAÑA Facility: [facility] Facility HSV: Outpatient Exam: CT [...] for referring JAMES RAMOS to [facility]. Legally authenticated by JESS CABALLERO 2022-05-07 14:43:47 us Generic [place] Provider IMG CT PROCEDURES Fi nal Result [...] documented as of this encounter Care Teams Service Provider Relationship Specialty Start Date End Date Marsha Mora APRN [address] [place] [address] PCP - General 08/22/20 10/17/22 Sharmin Awad APRN [address] [place] [address] PCP - General Family Medicine 10/18/22 documented as of this encounter
== END 2024-09-21 23:59 | disposition home or self-care (01) ==
LOC: LAB.DROPOF 22:18
PROVIDERS: PCP Nurse Practitioner Family; Visit Provider Nurse Practitioner Family
DX: R30.0 Dysuria (principal)
CPT/HCPCS: 81001; 87086

== ENCOUNTER 2024-09-27 09:47 | Outpatient (CLI) | payer MEDICAID, SELFPAY ==
--- OUTSIDE RECORDS SUMMARY | 2024-09-27 09:49 | XMS_ITS | Encounter Summary ---
Author Organization Healthcare Address [address] [place] [address] Care Team Providers Care Advertising Sales Manager Name Role Phone Marsha Mora APRN Primary Care Provider Sharmin Awad APRN Primary Care Provider [phone] Encounter Details Date Type Department Care Team ([facility] st Contact Info) Description 04/11/2022 Outside Procedure External Location [address] [place] [address] Provider, Nithin [place] Social History Tobacco Use Types Packs/Day Years [...] often do you attend chur ch or oriental orthodox services? Never 10/15/2020 Do you belong to any clubs o r organizations such as mandaen groups, unions, fraternal or athletic groups, or [...] Health Questionnaire-2 Score 4 11/26/2021 [facility]at ional [facility] - Occupational [...] Description 11/14/2024 2:10 PM EDT Office Visit [facility] Medicine Specialties [address], [address] [place] [address] Ginny Quan M, SORAIDA [address] [place] [address] documented as of this encounter Procedures Procedure Name Priority Date/Time Associated Diagnosis Comments XR CHEST 1 VIEW 04/11/2022 4:09 PM EST documented in this encounter Results * XR Chest 1 View (04/11/2022 4:09 PM EST) Anatomical Region Laterality Modality Chest Digital Radiogra phy 04/11/2022 4:09 PM EST Narrative 04/12/2022 8:53 [place] [address] Name: JAMES RAMOS Exam Date: 04/11/2022 : 1990 Age 31 Gender: F Physician: HERBERT HERNANDEZ Facility: [facility] Facility HSV: Outpatient Exam: CHEST PORTABLE [...] Thank you for referring JAMES RAMOS to [facility]. Legally authenticated by POPE JAMES Arias 2022-04-12 08:42:01 Procedure Note Provider, Generic [place] - 04/12/2022 [place] [address] Name: JAMES RAMOS Exam Date: 04/11/2022 : 1990 Age 31 Gender: F Physician: HERBERT HERNANDEZ Facility: [facility] Facility HSV: Outpatient Exam: CHEST PORTABLE [...] Thank you for referring JAMES RAMOS to [facility]. Legally authenticated by POPE JAMES Arias 2022-04-12 08:42:01 us Generic [place] Provider IMG XR PROCEDURES Fi nal Result [...] documented as of this encounter Care Teams Advertising Sales Manager Relationship Specialty Start Date End Date Masrha Mora APRN [address] [place] [address] PCP - General 08/22/20 10/17/22 Sharmin Awad APRN [address] [place] [address] PCP - General Family Medicine 10/18/22 documented as of this encounter
--- OUTSIDE RECORDS SUMMARY | 2024-09-27 09:49 | XMS_ITS | Referral Summary ---
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
--- OUTSIDE RECORDS SUMMARY | 2024-09-27 09:50 | XMS_ITS | Encounter Summary ---
Author Organization Healthcare Address [address] [place] [address] Care Team Providers Care Manager Dish Name Role Phone Marsha Mora MANAGER GAME Primary Care Provider [phone] Sharmin Awad APRN Primary Care Provider [phone] Encounter Details Date Type Department Care Team ([facility] Contact Info) Description 01/20/2022 Outside Procedure External Location [address] [place] [address] Sharmin Lambert, SORAIDA [address] [place] [address] Social History Tobacco Use Types [...] Recorded Patient Health Questionnaire-2 Score 4 11/26/2021 [facility] - Occupational Stress Questionnaire Answer [...] Description 11/14/2024 2:10 PM EDT Office Visit [facility] Medicine Specialties [address], [address] [place] [address] Ginny Quan, MANAGER GAME [address] [place] [address] documented as of this encounter Procedures Procedure Name Priority Date/Time Associated Diagnosis Comments US LIVER SCREEN 01/20/2022 9:56 AM EDT documented in this encounter Results * US Liver Screen (01/20/2022 9:56 AM EDT) Anatomical Region Laterality Modality Abdomen, Liver Ultrasound 01/20/2022 9:56 AM EDT Narrative 01/20/2022 11:29 [place] [address] Name: JAMES RAMOS Exam Date: 01/20/2022 : 1990 Age 31 Gender: F Physician: HSARMIN LAMBERT Facility: [facility] Facility HSV: Outpatient Exam: LIVER [...] Thank you for referring JAMES RAMOS to [facility]. Legally authenticated by CELINA ANAND 2022-01-20 11:18:05 Procedure Note Provider, Generic [place] - 01/20/2022 [place] [address] Name: JAMES RAMOS Exam Date: 01/20/2022 : 1990 Age 31 Gender: F Physician: SHARMIN LAMBERT Facility: [facility] Facility HSV: Outpatient Exam: LIVER [...] Thank you for referring JAMES RAMOS to [facility]. Legally authenticated by CELINA ANAND 2022-01-20 11:18:05 [...] documented as of this encounter Care Teams Manager Dish Relationship Specialty Start Date End Date Marsha Mora APRN [address] [place] [address] PCP - General 08/22/20 10/17/22 Sharmin Awad APRN [address] [place] [address] PCP - General Family Medicine 10/18/22 documented as of this encounter
--- OUTSIDE RECORDS SUMMARY | 2024-09-27 09:50 | XMS_ITS | Encounter Summary ---
Author Organization Healthcare Address [address] [id number] Care Team Providers Care Peoplesoft Administrator Name Role Phone Sharmin Awad APRN Primary Care Provider [phone] Encounter Details Date Type Department Care Team (Late st Contact Info) Description 08/29/2023 Orders Only External Location [address] [place] [address] Adriana Mathews [address] [id number] Social History Tobacco Use Types Packs/Day Years [...] often do you attend chur ch or baptism services? Never 10/15/2020 Do you belong to any clubs o r organizations such as bahai groups, unions, fraternal or athletic groups, or [...] Recorded Patient Health Questionnaire-2 Score 0 11/23/2022 [facility]at ional [facility] - Occupational [...] place to sleep or slept in a [facility] (including now)? No 10/15/2020 PHQ-2A Answer Date [...] [facility] Medicine Specialties [address] [place] [address] Ginny Quan M, WEIGHT INSPECTOR [address] [place] [address] documented as of this encounter [...] documented as of this encounter Care Teams Peoplesoft Administrator Relationship Specialty Start Date End Date Sharmin Awad APRN [address] [place] [address] PCP - General Family Medicine 10/18/22 documented as of this encounter
--- OUTSIDE RECORDS SUMMARY | 2024-09-27 09:50 | XMS_ITS | Encounter Summary ---
Author Organization Healthcare Address [address] [place] [address] Care Team Providers Care Stitcher Utility Name Role Phone Abby, Marsha Nalini QUIGLEY Primary Care Provider [phone] Sharmin Awad APRN Primary Care Provider Encounter Details Date Type Department Care Team ([facility] st Contact Info) Description 04/26/2022 Outside Procedure External Location [address] [place] [address] Carter Conner MD [address] [place] [address] Social History Tobacco Use Types [...] often do you attend chur ch or methodist services? Never 10/15/2020 Do you belong to [...] Recorded Patient Health Questionnaire-2 Score 4 11/26/2021 [facility] - Occupational Stress Questionnaire Answer Date [...] Visit [facility] Specialties [address] [place] [address] Ginny Quan, SCARF GLUER [address] [place] [address] documented as of this encounter Procedures Procedure Name Priority Date/Time Associated Diagnosis Comments CT ABDOMEN PELVIS W IV CONTRAST 04/26/2022 12:59 PM EST documented in this encounter Results * CT Abdomen Pelvis w IV Contrast (04/26/2022 12:59 PM EST) Anatomical Region Laterality Modality Abdomen, Pelvis Computed Tomogra phy 04/26/2022 12:5 9 PM EST Narrative 04/26/2022 2:56 PM EST [facility] [address] [place] [address] Name: JAMES RAMOS Exam Date: 04/26/2022 : 1990 Age 31 Gender: F Physician: CARTER CONNER Facility: [facility] Facility HSV: Outpatient Exam: CT ABD [...] Thank you for referring [facility] to [facility]. Legally authenticated by POPE JAMES Arias 2022-04-26 14:45:02 Procedure Note Provider, Generic [place] - 04/26/2022 [place] [address] Name: JAMES RAMOS Exam Date: 04/26/2022 : 1990 Age 31 Gender: F Physician: CARTER CONNER Facility: [facility] Facility HSV: Outpatient Exam: CT ABD [...] and dictated by Dr. Goss Transcribed by Kiely Strauss PA-C Dictated By: JAMES GOSS Transcribed By: James Goss Transcribed On: 04/26/2022 2:45 PM Electronically signed by: JAMES GOSS 04/26/2022 Thank you for referring J[facility] to [facility]. Legally authenticated by POPE JAMES Arias 2022-04-26 [...] documented as of this encounter Care Teams Stitcher Utility Relationship Specialty Start Date End Date Marsha Mora APRN [address] [place] [address] PCP - General 08/22/20 10/17/22 Sharmin Awad APRN [address] [place] [address] PCP - General Family Medicine 10/18/22 documented as of this encounter
--- OUTSIDE RECORDS SUMMARY | 2024-09-27 09:50 | XMS_ITS | Encounter Summary ---
Author Organization Healthcare Address [address] [place] [address] Care Team Providers Care Coater Name Role Phone AbbyMarsha APRN Primary Care Provider [phone] Sharmin Awad APRN Primary Care Provider [phone] Encounter Details Date Type Department Care Team ([facility] st Contact Info) Description 08/09/2022 Outside Procedure External Location [address] [place] [address] Adarsh Gan MD [address] [place] [address] Social History Tobacco Use Types [...] often do you attend chur ch or samaritan services? Never 10/15/2020 Do you belong to any clubs o r organizations such as yarsanism groups, unions, fraternal or athletic groups, or [...] Recorded Patient Health Questionnaire-2 Score 0 07/29/2022 [facility] - Occupational Stress Questionnaire Answer Date [...] place to sleep or slept in a [place] [facility] [place] (including now)? No 10/15/2020 Comments No Sex [...] Description 11/14/2024 2:10 PM EDT Office Visit [facility] Medicine Specialties [address] [place] [address] Ginny Quan, CONTENT ASSISTANT [address] [place] [address] documented as of this encounter Procedures Procedure Name Priority Date/Time Associated Diagnosis Comments CT ABDOMEN PELVIS W IV CONTRAST 08/09/2022 1:11 PM EDT documented in this encounter Results * CT Abdomen Pelvis w IV Contrast (08/09/2022 1:11 PM EDT) Anatomical Region Laterality Modality Abdomen, Pelvis Computed Tomogra phy 08/09/2022 1:11 PM EDT Narrative 08/09/2022 3:00 PM EDT [address] [address] Name: JAMES RAMOS Exam Date: 08/09/2022 : 1990 Age 31 Gender: F Physician: ADARSH GAN Facility: [facility] Facility HSV: [...] Thank you for referring JAMES RAMOS to [facility]. Legally authenticated by JESS CABALLERO 2022-08-09 14:49:49 Procedure Note Provider, [facility] - 08/09/2022 [place] [id number] Name: JAMES RAMOS Exam Date: 08/09/2022 : 1990 Age 31 Gender: F Physician: ADARSH GAN Facility: [facility] Facility HSV: [...] Thank you for referring JAMES RAMOS to [facility]. Legally authenticated by JESS CABALLERO 2022-08-09 [...] documented as of this encounter Care Teams Coater Relationship Specialty Start Date End Date Marsha Mora APRN [address] [place] [address] PCP - General 08/22/20 10/17/22 Sharmin Awad APRN [address] [place] [address] PCP - General Family Medicine 10/18/22 documented as of this encounter
--- OUTSIDE RECORDS SUMMARY | 2024-09-27 09:50 | XMS_ITS | Clinical Summary ---
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
--- OUTSIDE RECORDS SUMMARY | 2024-09-27 09:50 | XMS_ITS | Encounter Summary ---
Author Organization Healthcare Address [address] [place] [address] Care Team Providers Care Cat Tender Name Role Phone Marsha Mora APRN Primary Care Provider Sharmin Awad APRN Primary Care Provider Encounter Details Date Type Department Care Team ([facility] st Contact Info) Description 04/11/2022 Outside Procedure External Location [address] [place] [address] Provider, Nithin [place] Social History Tobacco Use Types Packs/Day Years [...] often do you attend chur ch or restorationist services? Never 10/15/2020 Do you belong to any clubs o r organizations such as cheondoism groups, unions, fraternal or athletic groups, or [...] Recorded Patient Health Questionnaire-2 Score 4 11/26/2021 [facility]at ional Health - Occupational Stress [...] Description 11/14/2024 2:10 PM EDT Office Visit [facility] Medicine Specialties [address] [place] [address] Ginny Quan M, SORAIDA [address] [place] [address] documented as of this encounter Procedures Procedure Name Priority Date/Time Associated Diagnosis Comments CT ABDOMEN PELVIS W IV CONTRAST 04/11/2022 4:09 PM EST documented in this encounter Results * CT Abdomen Pelvis w IV Contrast (04/11/2022 4:09 PM EST) Anatomical Region Laterality Modality Abdomen, Pelvis Computed Tomogra phy 04/11/2022 4:09 PM EST Narrative 04/11/2022 6:50 PM EST [address] [place] [address] Name: JAMES RAMOS Exam Date: 04/11/2022 : 1990 Age 31 Gender: F Physician: HERBERT HERNANDEZ Facility: [facility] Facility HSV: Outpatient Exam: CT [...] Thank you for referring JAMES RAMOS to [facility]. Legally authenticated by ZULYEMA Gayle III 2022-04-11 18:37:58 Procedure Note Provider, Generic [place] - 04/11/2022 [place] [id number] Name: JAMES RAMOS Exam Date: 04/11/2022 : 1990 Age 31 Gender: F Physician: HERBERT HERNANDEZ Facility: [facility] Facility HSV: Outpatient Exam: CT [...] Thank you for referring JAMES RAMOS to [facility]. Legally authenticated by ZULEYMA Gayle III 2022-04-11 18:37:58 us Generic [place] Provider IMG CT PROCEDURES Fi nal Result [...] documented as of this encounter Care Teams Cat Tender Relationship Specialty Start Date End Date Marsha Mora APRN [address] [place] [address] PCP - General 08/22/20 10/17/22 Sharmin Awad APRN [address] [place] [address] PCP - General Family Medicine 10/18/22 documented as of this encounter
--- OUTSIDE RECORDS SUMMARY | 2024-09-27 09:50 | XMS_ITS | Clinical Summary ---
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 Stevenson's the ED physician in [place] told him that the ultrasound was normal. [...] answers, or a second opinion with another CHILDCARE TEACHER and surgeon could be beneficial to help [...] abscess. - I called radiology yesterday at [facility] to discuss drain placement - they [...] any clubs o r organizations such as nondenominational groups, unions, fraternal or athletic groups, or [...] Recorded Patient Health Questionnaire-2 Score 0 05/16/2024 [facility] of Occupat ional Health - Occupational Stress [...] a senior care (including now)? No 10/15/2020 PHQ-2A Answer Date [...] Description 11/14/2024 2:10 PM EDT Office Visit [facility] Medicine Specialties [address] [place] [address] Ginny Quan M, STAGE ELECTRICIAN HELPER [address] [place] [address] Health Maintenance Due Date Last Done Comments [facility]-/Child/Adol SDOH Screenings 1990 [id number] Vaccine (#1) 08/12/1996 [facility]-Varicella Vaccines (1 of [...] Differentiation (12/20/2023 12:07 PM EDT) Pathologist [facility] HIV 1 & 2 Antibody/Antigen Screen Non Reactive Non Reactive 12/20/2023 1:15 PM EDT [facility] Comment:Screening for HIV 1 & 2 antibodies, and P24 antigen is NONREACTIVE. No confirmatory testing is required. Blood Venous blood specimen / Unknown Venipuncture / Unknown 12/20/2023 12:07 PM EDT 12/20/2023 12:32 PM EDT Renetta Lopez MD LAB BLOOD ORDERABLES Final Resu lt Performing Organization Address City/[facility]/ZIP Co de Phone Number [facility] [address] [place] [address] * Acute Hepatitis Panel (06/23/2023 10:22 AM EDT) [facility] Hepatitis B Surf Antigen Negative Negative 06/23/2023 12:49 PM EDT [facility] Hepatitis C Antibody Negative Negative 06/23/2023 12:49 PM EDT [facility] Hepatitis A Antibody IgM Negative Negative 06/23/2023 12:49 PM EDT [facility] Hepatitis B Core Antibody IgM Negative Negative 06/23/2023 12:49 PM EDT [facility] Blood Venous blood specimen / Unknown Venipuncture / Unknown 06/23/2023 10:22 AM EDT 06/23/2023 10:22 AM EDT Ginny Quan APRN LAB BLOOD ORDERABLES Final Result Performing Organization Address City/[facility] Co de Phone Number [facility] [address] [place] [address] * (ABNORMAL) Pap Smear (03/03/2021 2:47 PM EST) Case Report Cytology Case: [id number] Authorizing Provider: Carter Conner MD Collected: 03/03/2021 1447 Ordering Location: Obstetrics & Gynecology Received: 03/04/2021 0837 First Screen: Faraz Wild, CT Pathologist: Rose Porter MD Specimen: ThinPrep Pap Test, Liquid-Based Cervical/Vagina l, CERVICAL/VAGINA L 03/16/2021 10:12 AM EST [facility] Interpretation ATYPICAL SQUAMOUS CELLS OF UNDETERMINED SIGNIFICANCE (ASCUS)(A) 03/16/2021 10:12 AM EST [facility] at 1012 EST Specimen Adequacy Satisfactory for evaluation; endocervical/tr ansformation zone component present. Slide imaged by the ThinPrep Imaging system and selected 22 sagastume reviewed then full manual screening. 03/16/2021 10:12 AM EST [facility] Cervical cytology is a screening [...] results is suggested (please call Microbiology at [phone] for results). 03/16/2021 10:12 AM EST [facility] Menstrual Status Cyclic 03/16/20 10:12 AM EST [facility] History of Hysterectomy Not Applicable 03/16/2021 10:12 AM EST [facility] Contraceptive History Not Applicable 03/16/2021 10:12 AM EST [facility] Last Menstrual Period 01/31/2021 03/16/2021 10:12 AM EST [facility] Clinical Information N92.0 - Menorrhagia with regular cycle [ICD-10-CM] 03/16/2021 10:12 AM EST [facility] Screening Type Routine Screen 2020 10:12 AM EST [facility] High Risk? No 03/16/2021 10:12 AM [facility] HPV Testing Requested? Request HPV Testing if ASCUS (Women 25 Years or Older) 03/16/2021 10:12 AM EST [facility] Previous Cancer History No 03/16/2021 10:12 AM EST [facility] Swab Vaginal and cervical cytologic material / Unknown Non-blood Collection / Unknown 03/03/2021 2:47 PM EST 03/04/2021 8:37 AM EST Carter Conner MD LAB CYTOLOGY ORDERABLES Final R esult [facility] [address] [place] [phone] from Last 3 Months or Most Recently Relevant to Health Maintenance Insurance [facility] MEDICAID Care Teams Cna Instructor Relationship Specialty Start Date End Date Sharmin Awad APRN [address] [place] [address] PCP - General Family Medicine 10/18/22
--- OUTSIDE RECORDS SUMMARY | 2024-09-27 09:50 | XMS_ITS | Data Portability ---
Author Organization [place] - [facility] - [place] & CHARBEL Caceres ADMIN Address [address] [place] [address] Care Team Providers Care Care Rep Name Role Phone GUILHERME CHIANG Primary Care Provider [phone] Assessment Encounter Date Assessment Date Assessment LastModified [...] hepatitis B vaccination in the office today. [email or web address] Not available 07/27/2022 10:53:52 08/06/2022 08/06/2022 31-year-old [...] x14 days for diarrhea -Colonoscopy scheduled 08/26/22 [email or web address] Not available 08/06/2022 13:42:58 09/14/2022 09/14/2022 32-year-old [...] her liver enzymes. Labs at [facility] last week showed AST elevated at [...] not given a diagnosis. f/u 6 months Not available 09/14/2022 13:01:39 03/16/2023 03/16/2023 32-year-old [...] 6 weeks to access response to Linzess [email or web address] Not available 03/16/2023 11:13:54 Plan of Treatment Reminders Order Date Submit Date Provider Last Modified By Organization Details Last Modified Time Details Appointments None recorded. Lab None recorded. Referral None recorded. Procedures None recorded. Surgeries None recorded. Imaging None recorded. Medication Orders Linzess 72 mcg capsule 2022 023 [place]O [facility], [address], [address], 3 11:07:32 Xifaxan 550 mg tablet 2022 023 [email or web address] [facility], [address], [address], 3 13:23:14 dicyclomine 20 mg tablet 2022 023 [email or web address] [facility], [address], [address], 3 10:47:32 Patient TargetsNo targets recorded. Patient InstructionsNo instructions recorded. Reason for Referral None Reported. Results Created Date Observation Date Name Description Value Unit Range Abnormal Flag Note LastModifiedBy Organization Detail LastModifiedTime 04/20/1904/20/2022 CBC AUTO W DIFF WBC 6.9 K/uL 4.0-10 .5 Not Available [facility] ([facility]) [address] , [place], [address], 04/20/2022 11:48:56 04/20/19 23 04/20/2022 CBC AUTO W DIFF RBC 4.1 M/mm3 4.2-6. 4 low Not Available [facility] ([facility]) [address] , [place], [address], 04/20/2022 11:48:56 04/20/19 23 04/20/2022 CBC AUTO W DIFF HGB 11.3 gm/dL 12.5-1 6.0 low Not Available [facility] ([facility]) [address] , [place], [address], 04/20/2022 11:48:56 04/20/19 23 04/20/2022 CBC AUTO W DIFF HCT 36.4 % 37.0-4 7.0 low Not Available [facility] ([facility]) [address], [place], [address], 04/20/2022 11:48:56 04/20/19 23 04/20/2022 CBC AUTO W DIFF MCV 88.8 fL 78-100 Not Available [facility] ([facility]) [address], [place], [address], 04/20/2022 11:48:56 04/20/19 23 04/20/2022 CBC AUTO W DIFF MCH 27.6 pg 27-31 Not Available [facility] ([facility]) [address], [place], [address], 04/20/2022 11:48:56 04/20/19 23 04/20/2022 CBC AUTO W DIFF MCHC 31.0 g/dL 32-36 low Not Available [facility] ([facility]) [address], [place], [address], 04/20/2022 11:48:56 04/20/19 23 04/20/2022 CBC AUTO W DIFF RDW 14.7 % 11.5-1 4.0 high Not Available [facility] ([facility]) [address] [place], [address], 04/20/2022 11:48:56 04/20/19 23 04/20/2022 CBC AUTO W DIFF platelet count 258 K/uL 150-45 0 Not Available [facility] ([facility]) [address], [place], [address], 04/20/2022 11:48:56 04/20/19 23 04/20/2022 CBC AUTO W DIFF neutrophil% 69.3 % 43-65 high Not Available [facility] ([facility]) [address], [place], [address], 04/20/2022 11:48:56 04/20/19 23 04/20/2022 CBC AUTO W DIFF lymphocyte% 22.0 % 20.5-4 5.5 Not Available [facility] ([facility]) [address], [place], [address], 04/20/2022 11:48:56 04/20/19 23 04/20/2022 CBC AUTO W DIFF monocyte% 5.5 % 5.5-11 .7 Not Available [facility] ([facility]) [address] [place], [address], 04/20/2022 11:48:56 04/20/19 23 04/20/2022 CBC AUTO W DIFF eosinophil% 3.1 % 0.9-2. 9 high Not Available [facility] ([facility]) [address] [facility], [place], [address], 04/20/2022 11:48:56 04/20/19 23 04/20/2022 CBC AUTO W DIFF basophil% 0.1 % 0.2-1. 0 low Not Available [facility] ([facility]) [address] [place], [address], 04/20/2022 11:48:56 04/20/19 23 04/20/2022 CBC AUTO W DIFF neutrophil# 4.8 K/uL 2.2-4. 8 Not Available [facility] ([facility]) [address] [place], [address], 04/20/2022 11:48:56 04/20/19 23 04/20/2022 CBC AUTO W DIFF lymphocyte# 1.5 cell/ mcL 1.3-2. 9 Not Available [facility] ([facility]) [address] [place], [address], 04/20/2022 11:48:56 04/20/19 23 04/20/2022 CBC AUTO W DIFF monocyte# 0.4 cell/ mcL 0.3-0. 8 Not Available [facility] ([facility]) [address], [place], [address], 04/20/2022 11:48:56 04/20/19 23 04/20/2022 CBC AUTO W DIFF eosinophil# 0.2 cell/ mcL 0-0.2 Not Available [facility] ([facility]) [address] [facility], [place], [address], 04/20/2022 11:48:56 04/20/19 23 04/20/2022 CBC AUTO W DIFF basophil# 0.0 cell/ mcL 0.0-1. 0 Not Available [facility] ([facility]) [address] [facility], [place], [address], 04/20/2022 11:48:56 04/20/19 23 04/20/2022 CBC AUTO W DIFF manual differential NO Not Available [facility] ([facility]) [address] [facility], [place], [address], 04/20/2022 11:48:56 04/20/19 23 04/20/2022 IRON STUDY (IRON /TIBC /%SAT ) iron 126 mcg/m L 40-180 Not Available [facility] ([facility]) [address] [place], [address], 04/20/2022 12:30:51 04/20/19 23 04/20/2022 IRON STUDY (IRON /TIBC /%SAT ) TIBC 292 mcg/d L 250-45 0 Not Available [facility] ([facility]) [address] [place], [address], 04/20/2022 12:30:51 04/20/19 23 04/20/2022 IRON STUDY (IRON /TIBC /%SAT ) %sat 43 15-55 Not Available [facility] ([facility]) [address] , [place], [address], 04/20/2022 12:30:51 04/20/19 23 04/20/2022 GERALDO TIN ferritin, serum 145 NG/mL 3-244 Not Available [facility] ([facility]) [address] , [place], [address], 04/20/2022 12:32:04 04/20/19 23 04/20/2022 COMP METAB OLIC PANEL sodium 137 mmol/ L 136-14 5 Not Available [facility] ([facility]) [address] , [place], [address], 04/20/2022 12:32:05 04/20/19 23 04/20/2022 COMP METAB OLIC PANEL potassium 4.4 mmol/ L 3.6-5. 0 Not Available [facility] ([facility]) [address] , [place], [address], 04/20/2022 12:32:05 04/20/19 23 04/20/2022 COMP METAB OLIC PANEL chloride 100 mmol/ L 98-107 Not Available [facility] ([facility]) [address], [place], [address], 04/20/2022 12:32:05 04/20/19 23 04/20/2022 COMP METAB OLIC PANEL carbon dioxide 28.0 mmol/ L 21.0-3 2.0 Not Available [facility] ([facility]) [address] , [place], [address], 04/20/2022 12:32:05 04/20/19 23 04/20/2022 COMP METAB OLIC PANEL anion gap 13.4 Not Available [facility] ([facility]) [address], [place], [address], 04/20/2022 12:32:05 04/20/19 23 04/20/2022 COMP METAB OLIC PANEL glucose 88 mg/dL 70-120 Not Available [facility] ([facility]) [address], [place], [address], 04/20/2022 12:32:05 04/20/19 23 04/20/2022 COMP METAB OLIC PANEL BUN 13 mg/dL 7-18 Not Available [facility] ([facility]) [address], [place], [address], 04/20/2022 12:32:05 04/20/19 23 04/20/2022 COMP METAB OLIC PANEL creatinine 1.0 mg/dL 0.6-1. 3 Not Available [facility] ([facility]) [address] , [place], [address], 04/20/2022 12:32:05 04/20/19 23 04/20/2022 COMP METAB OLIC PANEL glomerular filtration rate >60 mlper min 60- Not Available [facility] ([facility]) [address], [place], [address], 04/20/2022 12:32:05 04/20/19 23 04/20/2022 COMP METAB OLIC PANEL total protein 7.2 g/dL 6.4-8. 2 Not Available [facility] ([facility]) [address] , [place], [address], 04/20/2022 12:32:05 04/20/19 23 04/20/2022 COMP METAB OLIC PANEL albumin 3.7 g/dL 3.4-5. 0 Not Available [facility] ([facility]) [address], [place], [address], 04/20/2022 12:32:05 04/20/19 23 04/20/2022 COMP METAB OLIC PANEL globulin 3.5 Not Available [facility] ([facility]) [address] , [place], [address], 04/20/2022 12:32:05 04/20/19 23 04/20/2022 COMP METAB OLIC PANEL alb/glob ratio 1.1 0.7-2 Not Available [facility] ([facility]) [address], [place], [address], 04/20/2022 12:32:05 04/20/19 23 04/20/2022 COMP METAB OLIC PANEL calcium 9.6 mg/dL 8.5-10 .5 Not Available [facility] ([facility]) [address], [place], [address], 04/20/2022 12:32:05 04/20/19 23 04/20/2022 COMP METAB OLIC PANEL bilirubin total 0.34 mg/dL 0.10-1 .00 Not Available [facility] ([facility]) [address] [facility], [place], [address], 04/20/2022 12:32:05 04/20/19 23 04/20/2022 COMP METAB OLIC PANEL AST (SGOT) 38 U/L 0-37 high Not Available [facility] ([facility]) [address] [facility], [place], [address], 04/20/2022 12:32:05 04/20/19 23 04/20/2022 COMP METAB OLIC PANEL ALT (SGPT) 43 U/L 0-65 Not Available [facility] ([facility]) [address] [facility], [place], [address], 04/20/2022 12:32:05 04/20/19 23 04/20/2022 COMP METAB OLIC PANEL alk phosphatase 84 U/L 46-116 Not Available [facility] ([facility]) [address] [facility], [place], [address], 04/20/2022 12:32:05 04/13/19 23 04/14/2022 elect isaiah soriano am No observ ation record ed. [facility] [address], [place], [address], 04/21/2022 14:37:17 04/28/19 23 04/26/2022 CT, abdom en + pelvi s, w/ contr ast No observ ation record ed. [email or web address] [facility] ([facility]) [address], [place], [address], 04/29/2022 08:32:02 Result Notes None recorded. Problems Name Problem SNOMED Code Status Onset Date Resolution Date Notes Provider Name and Address Organization Details Recorded Time Abdominal pain 51135969 Active 2022 Henna whelan, [place] - [facility] [place] & [place] 3 10:58:39 Chest pain 21933035 Active 2022 Henna whelan, [place] [facility] [place] 3 10:58:44 Dyspnea on exertion 49408751 Active 2022 Matthew Gordon MD [address] [facility], [place], [address] , [place] [facility] [place] 3 11:36:06 Cyst of ovary 85135400 Active 2022 Anastasia whelan, [place] [facility] [place] 3 10:10:19 Loose stool 697049907 Active 2022 Joe Salmeron PA-C [address] [facility], [place], [address] , [place] [facility] [place] 3 10:23:14 Pain associated with defecation 323902167 Active 2022 Joe Salmeron PA-C [address] [facility], [place], [address] , [place] [facility] [place] 3 10:23:19 Homogeneous antinuclear antibody pattern 794421147 Active 2022 Joe Salmeron PA-C [address] [facility], [place], [address] , [place] [facility] [place] 3 10:24:55 Colitis 21554272 Active 2022 Joe Salmeron PA-C [address], [place], [address] , [place] [facility] [place] 3 10:32:51 Increased liver function 49376799 Active 2022 Joe Salmeron PA-C [address], [place], [address] , [place] [facility] [place] 3 10:50:40 Non-alcoholic fatty liver 568866152 Active [address], [place], [address] , [place] [facility] [place] 3 10:50:44 Irritable bowel syndrome with diarrhea 208914709 Active 2022 [address] , [place], [address] , [place] [facility] [place] 3 11:07:26 Chronic idiopathic constipation 71155673 Active 2022 Joe Salmeron PA-C [address] , [place], [address] , [place] [facility] [place] 3 11:06:57 Problem Notes None recorded. Procedures Surgical History Date Name Laterality Status Provider Name and Address Organization Details Recorded Time 04/11/19 23 Abdominal Surgery completed Blanca Toro [place] [facility] [place] 04/29/2022 10:59:15 04/11/19 23 Hysterectomy completed Anastasia CLARK - [facility] - [place] & [place] 07/27/2022 10:07:32 04/11/19 22 Abdominal Surgery completed Blanca Toro [place] - [facility] [place] 04/29/2022 10:59:14 02/19/20 21 Date of Last Pap Smear completed Henna Leigh [place] [facility] [place] 04/13/2022 10:49:53 04/11/19 21 Abdominal Surgery completed Blanca CLARK - [facility] - [place] & [place] 04/29/2022 10:59:15 04/11/19 21 Other completed Henna CLARK - [facility] - [place] & [place] 04/13/2022 10:49:53 04/11/19 19 Other completed Henna CLARK - [facility] - [place] & [place] 04/13/2022 10:49:53 04/11/19 16 Other completed Henna CLARK - [facility] - [place] & [place] 04/13/2022 10:49:53 04/11/19 15 Abdominal Surgery completed Blanca CLARK - [facility] - [place] & [place] 04/29/2022 10:59:14 04/11/19 14 Gastrointestinal Surgery completed Henna CLARK - [facility] - [place] & [place] 04/13/2022 10:49:53 04/11/19 13 Other completed Henna CLARK - [facility] - [place] & [place] 04/13/2022 10:49:53 Imaging Results None recorded. Procedure Notes None recorded. Medical Equipment None Reported. Allergies Allergen ID Allergen Name Allergen Category Reaction Reaction Severity Criticality Documentation Date Start Date Code Code System Note Provider Name and Address Organization Details Recorded Time 12317 latex environme nt,medica tion Not available Not available Not available 04/13/2022 19368 91 RxNorm Blanca whelan, [place] - [facility] & [place] 3 10:59:09 56421 rubber, unspecifi ed environme nt,medica tion Not available Not available Not available 04/20/2022 58397 5 UNK Blanca whelan, AM[place] - [facility] & [place] 3 10:59:09 42744 Latex (substanc e) environme nt,medica tion Not available Not available Not available 04/29/2022 52659 8007 SNOMED Blanca whelan, [place] - [facility] - [place] & [place] 3 10:59:09 Medications Name Sig Start Date [...] Not Available Not Keyana ilable Not Available Gilpin-Linyah 0.25 mg-0.035 mg tablet TAKE 1 TABLET [...] Updated DateTime 04/28/2022 165.1 cm Anastasia BARGER [facility] & [place] 04/28/2022 11:42:59 Date Recorded Body height Body mass index (BMI) Body weight Heart rate Systolic blood pressure Diastolic blood pressure Provider Name and Address Organization Details Last Updated DateTime 3 165.1 cm 25.1 kg/m2 89021.4 5 g 85 /min 124 mm[Hg] 82 mm[Hg] Anastasia BARGER [facility] & [place] 3 09:28:44 Date Recorded Body height Heart rate Systolic blood pressure Diastolic blood pressure Provider Name and Address Organization Details Last Updated DateTime 08/06/2022 165.1 cm 78 /min 110 mm[Hg] 78 mm[Hg] Anastasia BARGER [facility] & [place] 08/06/2022 10:14:43 Date Recorded Body height Body mass index (BMI) Body weight Oxygen saturation Oxygen saturation in Arterial blood by Pulse oximetry Heart rate Systolic blood pressure Diastolic blood pressure Provider Name and Address Organization Details Last Updated DateTime 3 157.48 cm 26.5 kg/m2 56537.2 5 g 96 % 96 % 63 /min 92 mm[Hg] 66 mm[Hg] Allie Ornelas [facility] & [place] 3 10:40:15 Date Recorded Body height Body mass index (BMI) Body weight Body temperature Oxygen saturation Oxygen saturation in Arterial blood by Pulse oximetry Heart rate Heart rate Systolic blood pressure Diastolic blood pressure Provider Name and Address Organization Details Last Updated DateTime 3 157.48 cm 25.4 kg/m2 32278.7 g 97.3 [degF] 98 % 98 % 78 /min 79 /min 100 mm[Hg] 69 mm[Hg] Radha Ryan [facility] & [place] 3 10:33:24 Social History Question Answer Notes LastModified by Sproutling Details LastModified Time Tobacco Smoking Status Former Smoker Henna whelan, [facility] & [place] 04/13/2022 10:49:53 Do You Have An Advance [...] anxious, or unable to sleep at night)? [id number] Information not available 04/13/2022 Family History Nothing Reported Notes:family hx of cardiac d isease heart failure, GA,CAD, HTN, HLD Medical History No medical history [...] Hep A, adult 2 completed Not Available [facility] 03/16/2023 10:23:08 Hep B, adult 2 completed Not Available [facility] 03/16/2023 10:23:08 Td (adult), 2 Lf tetanus toxoid, preservative free, adsorbed 4 completed Anastasia Harris [place] [facility] [place] 03/11/2022 10:38:45 Tdap 0 completed Anast[place] [facility] [place] 03/11/2022 10:38:45 Hep B, adolescent or pediatric 4 completed Anast[place] [facility] [place] 03/11/2022 10:38:45 Hep B, adolescent or pediatric 4 completed Anast[place] [facility] [place] 03/11/2022 10:38:45 Tdap 9 completed Anastasia [place] [facility] [place] 03/11/2022 10:38:45 Hep B, adult 3 completed Not Available [facility] 03/16/2023 10:23:08 Hep A, adult 3 completed Not Available [facility] 03/16/2023 10:23:08 Hep B, adult 3 completed Not Available [facility] 03/16/2023 10:23:08 Past Encounters Encounter ID Performer Location Encounter Start Date Encounter Closed Date Diagnosis/Indication Diagnosis SNOMED-CT Code Diagnosis ICD10 Code Diagnosis Note [id number] Sharmin Mckeon NP [facility] [address] [address] 01/07/2022 10:52:25 01/07/2022 11:35:01 Liver enzymes level above reference range 000453371 R74.01 Will check labs. Avoid alcohol and NSAIDs. Liver ultrasound ordered. Follow-up in 4 weeks. [id number] Sharmin Mckeon NP [facility] [address] [address] 02/04/2022 09:56:34 02/04/2022 10:46:05 Steatotic liver disease 735255771 K76.0 - CAM fibrosure S1-S2- did have an episode of binge drinking for several months which has resolved and she no longer drinks alcohol- will initiate hepatitis- A and B vaccine series today- follow-up in 6 months (2 months for #2 Hep B vaccinatio n) [id number] Richard Connor MD [facility] [address] [place] [address] 02/11/2022 10:51:15 02/11/2022 11:10:33 [id number] Matthew Gordon MD [facility] [address] [facility] [address] [place] [address] 04/13/2022 10:48:34 04/13/2022 11:39:07 Dyspnea on exertion 07686680 R06.09 Will obtain echocardio gram to evaluate EF pulmonary pressure and diastolic function [id number] Sharmin Mckeon NP [facility] [address] [place] [address] 04/20/2022 09:55:48 04/20/2022 10:53:06 Steatotic liver disease 231707281 K76.0 - CAM fibrosure S1-S2- did have an episode of binge drinking for several months which has resolved and she no longer drinks alcohol- will initiate hepatitis- A and B vaccine series today- follow-up in 6 months (2 months for #2 Hep B vaccinatio n) Anemia 532708600 D64.9 - Continue Iron supplement s- Last hgb done 04/13 was 9.2, recheck today- Will call with results CT of abdo men abnormal 6086412190 9388396 R93.5 - wall thickening and inflammati on of terminal ileum noted- consider colonoscop y in the future pending repeat abd ct scan- advised patient to call and schedule appointmen t after her abdominal CT scan for follow-up [id number] Joe Salmeron PA-C [facility] [address] [address] 04/28/2022 11:20:50 04/28/2022 11:57:40 Administration of viral vaccine 75103964 Z23 [id number] Joe Salmeron PA-C [facility] [address] [address] 07/27/2022 09:23:19 07/27/2022 10:36:04 Abdominal pain 53380300 R10.9 Loose stool 196080052 R1 9.5 Pain assoc iated with defecation 282814454 K62.89 Homogeneou s antinuclear antibody pattern 534961882 R76.8 Colitis 30126376 K52.9 Viral hepa titis A vaccination given 3746161153 9105 Z23 Viral hepa titis B vaccination given 5754518911 9103 Z23 Increased liver function 37208849 R94.5 Non-alcoho lic fatty liver 306019017 K76.0 [id number] Joe Salmeron PA-C [facility] [address] [address] 08/06/2022 09:59:21 08/06/2022 12:23:34 Abdominal pain 66861082 R10.9 Loose stool 742456350 R1 9.5 Pain assoc iated with defecation 495128814 K62.89 Homogeneou s antinuclear antibody pattern 524019482 R76.8 Colitis 05518010 K52.9 Increased liver function 08806992 R94.5 Non-alcoho lic fatty liver 386722113 K76.0 Irritable bowel syndrome with diarrhea 839420805 K58.0 [id number] Joe Salmeron PA-C [facility] [address] [place] [address] 09/14/2022 10:31:22 09/14/2022 11:11:54 Abdominal pain 43206280 R10.9 Loose stool 786038958 R1 9.5 Pain assoc iated with defecation 529017239 K62.89 Homogeneou s antinuclear antibody pattern 676111477 R76.8 Colitis 07397505 K52.9 Increased liver function 26862100 R94.5 Non-alcoho lic fatty liver 694639325 K76.0 Irritable bowel syndrome with diarrhea 132765687 K58.0 [id number] Joe Salmeron PA-C [facility] [address] [place] [address] 03/16/2023 10:22:01 03/16/2023 11:06:50 Abdominal pain 20678328 R10.9 Loose stool 814301698 R1 9.5 Pain assoc iated with defecation 280695244 K62.89 Homogeneou s antinuclear antibody pattern 506984530 R76.8 Colitis 02594202 K52.9 Increased liver function 08944797 R94.5 Non-alcoho lic fatty liver 120282135 K76.0 Irritable bowel syndrome with diarrhea 585199844 K58.0 Chronic id iopathic constipation 29277613 K59.04 Health Concerns Section Related Observation LastModified by Organization Detai ls LastModified Time None Recorded Concern Status LastModified by Organization Details LastModified Time None Recorded Advance Directives Directive N: Payers Insurance Date Sequence Insurance Name Policy Number Policy Fall Covered Member ID Fall Member ID Guarantor Name 10/29/2023 1 [employer] [place] [id number] Simone Davila [id number] Simone Baird Giovanni 10/29/2023 1 [employer] [place] Simone Davila [id number] Simone Davila Notes Date Note Type Note [...] enteritis. Joe Salmeron PA-C [address], [place], [address], [facility] & [place] 07/27/2022 10:54:07 08/06/2022 text/html PREVIOUS ( 3 [...] glasses. Joe Salmeron PA-C [address], [place], [address], [facility] & [place] 08/06/2022 13:43:16 09/14/2022 text/html PREVIOUS ( 3 [...] seen in the ED at [facility] last week due to acute abdominal pain and underwent CT with evidence of possible ovarian cyst vs. abscess. She states that she received antibiotics for possible sepsis. She is doing okay today. Her bowel habits are regulated better since the colonoscopy. She is schedule for follow-up with gynecology tomorrow Joestaci Salmeron PA-C [address] [facility], [place], [address], [place] [facility] [place] 09/14/2022 13:01:54 03/16/2023 text/html PREVIOUS ( 3 [...] seen in the ED at [facility] last week due to acute abdominal [...] a CT abd/pelvis performed at [facility] on 02/25/23 that showed a low-lying cecum and left adnexal cysts. She notes frequent abdominal bloating. Joe Salmeron PA-C [address], [place], [address], [place] - [place] - [place] & [place] 03/16/2023 11:14:10 OBGyn Episode No OBEpisode recorded.
--- OUTSIDE RECORDS SUMMARY | 2024-09-27 09:50 | XMS_ITS | Encounter Summary ---
Author Organization Healthcare Address [address] [place] [address] Care Team Providers Care Account Relationship Manager Name Role Phone Marsha Mora APRN Primary Care Provider [phone] Sharmin Awad APRN Primary Care Provider [phone] Encounter Details Date Type Department Care Team ([facility] st Contact Info) Description 05/07/2022 Outside Procedure External Location [address] [place] [address] Provider, Nithin [place] Social History Tobacco Use Types Packs/Day Years [...] often do you attend chur ch or synagogue services? Never 10/15/2020 Do you belong to any clubs o r organizations such as buddhism groups, unions, fraternal or athletic groups, or [...] Recorded Patient Health Questionnaire-2 Score 4 11/26/2021 [facility] - Occupational [...] to sleep or slept in a senior living (including now)? No 10/15/2020 Comments No Sex [...] [facility] [address], [address] [place] [address] Ginny Quan M, SORAIDA [address] [place] [address] documented as of this encounter Procedures Procedure Name Priority Date/Time Associated Diagnosis Comments CT ABDOMEN PELVIS W IV CONTRAST 05/07/2022 1:02 PM EST documented in this encounter Results * CT Abdomen Pelvis w IV Contrast (05/07/2022 1:02 PM EST) Anatomical Region Laterality Modality Abdomen, Pelvis Computed Tomogra phy 05/07/2022 1:02 PM EST Narrative 05/07/2022 2:55 [place] [address] Name: JAMES RAMOS Exam Date: 05/07/2022 : 1990 Age 31 Gender: F Physician: JUANCARLOS SALDAÑA Facility: [facility] Facility HSV: Outpatient Exam: [...] to [facility]. Legally authenticated by JESS CABALLERO 2022-05-07 14:43:47 Procedure Note Provider, [facility] - 05/07/2022 [place] [id number] Name: JAMES RAMOS Exam Date: 05/07/2022 : 1990 Age 31 Gender: F Physician: JUANCARLOS SALDAÑA Facility: [facility] Facility HSV: Outpatient Exam: [...] to [facility]. Legally authenticated by JESS CABALLERO 2022-05-07 14:43:47 us Generic [place] Provider IMG CT PROCEDURES Fi nal Result [...] documented as of this encounter Care Teams Account Relationship Manager Relationship Specialty Start Date End Date Marsha Mora APRN [address] [place] [id number] PCP - General 08/22/20 10/17/22 Sharmin Awad APRN [address] [place] [address] PCP - General Family Medicine 10/18/22 documented as of this encounter
--- NOTE | 2024-09-27 10:00 | US_ITS ---
FINAL REPORT CLINICAL HISTORY: recurrent dysuria FINDINGS: Limited sonographic images of the bladder was obtained. Bladder volume filled is 125 mL. Postvoid residual is 32 mL. Bilateral jets are identified. IMPRESSION: Small amount of postvoid residual. Reviewed, Interpreted and Dictated by Storm Avitia MD Transcribed by Iza Mackay Authenticated and [facility]
== END 2024-09-27 23:59 | disposition home or self-care (01) ==
LOC: RAD 09:47
PROVIDERS: PCP Nurse Practitioner Family; Visit Provider Nurse Practitioner Family
DX: R39.198 Other difficulties with micturition (principal); R30.0 Dysuria; R10.2 Pelvic and perineal pain
CPT/HCPCS: 76857

== ENCOUNTER 2024-10-08 14:52 | Outpatient (CLI) | payer MEDICAID, SELFPAY ==
--- NOTE | 2024-10-08 14:54 | MR_ITS ---
FINAL REPORT CLINICAL HISTORY: LUMBAR SPINE PAIN COMPARISON: None FINDINGS: Multiplanar MR imaging of the lumbar spine was performed without contrast. On the sagittal T2-weighted images, there is abnormal decreased signal throughout the lumbar discs. The vertebrae are of normal height. The vertebral alignment is normal. L1-2: There is no significant canal stenosis or neural foraminal narrowing. L2-3: There is no significant canal stenosis or neural foraminal narrowing. L3-4: There is no significant canal stenosis or neural foraminal narrowing. L4-5: There is no significant canal stenosis or neural foraminal narrowing. L5-S1: There is no significant canal stenosis or neural foraminal narrowing. IMPRESSION: There is no significant canal stenosis or neural foraminal narrowing. Reviewed, Interpreted and Dictated by Storm Avitia MD Transcribed by Hayley Hatfield Authenticated and [facility]
--- OUTSIDE RECORDS SUMMARY | 2024-10-08 14:58 | XMS_ITS | Clinical Summary ---
Author Organization [facility] ([place], [place], [place], [place]) Address [address] [place] [address] Care Team Providers Care Sales Activity Manager Name Role Phone Nilda Phipps APRN Primary Care Provider Allergies Active Allergy Reactions Criticality Noted Date Comments Latex 10/25/2023 Social History Tobacco Use Types Packs/Day Years Used Date Smoking Tobacco: Never Assessed Food Insecurity Answer Date Recorded Food run [...] Date Kermit rded Speak language other than Congolese at home Not on file 10/25/2023 Want help with school or training Not on file 10/25/2023 Substance Use Answer Date Recorded Used prescription meds for non-medical reasons N ot on file 10/25/2023 Used illegal drugs past 12 months Not on file 10/25/2023 Comments Unknown Sex and Gender Information Value Date Recorded Sex Assigned at Not on file Legal Sex Female 7:16 AM ROLLER MAKER Gender Identity Not on file Sexual Orientation [...] patient's age to complete this topic Insurance [facility] Care Teams Sales Activity Manager Relationship Specialty Start Date End Date Nilda Phipps APRN [address] [address] PCP - General Nurse Practitioner 10/25/23
--- OUTSIDE RECORDS SUMMARY | 2024-10-08 14:58 | XMS_ITS | Encounter Summary ---
Author Organization Healthcare Address [address] [place] [address] Care Team Providers Care Qa Internship Name Role Phone AbbyMarsha APRN Primary Care Provider [phone] Sharmin Awad APRN Primary Care Provider [phone] Encounter Details Date Type Department Care Team ([facility] st Contact Info) Description 08/09/2022 Outside Procedure External Location [address] [place] [address] Adarsh Gan MD [address] [place] [address] Social History Tobacco Use Types [...] often do you attend chur ch or jain services? Never 10/15/2020 Do you belong to [...] Recorded Patient Health Questionnaire-2 Score 0 07/29/2022 [facility] Answer [...] Description 11/14/2024 2:10 PM EDT [facility] [address] [place] [address] Ginny Quan, CUTCH CLEANER [address] [place] [address] documented as of this encounter Procedures Procedure Name Priority Date/Time Associated Diagnosis Comments CT ABDOMEN PELVIS W IV CONTRAST 08/09/2022 1:11 PM EDT documented in this encounter Results * CT Abdomen Pelvis w IV Contrast (08/09/2022 1:11 PM EDT) Anatomical Region Laterality Modality Abdomen, Pelvis Computed Tomogra phy 08/09/2022 1:11 PM EDT Narrative 08/09/2022 3:00 PM EDT [address] [address] Name: JAMES RAMOS Exam Date: 08/09/2022 : 1990 Age 31 Gender: F Physician: ADARSH GAN Facility: [facility] Facility HSV: Outpatient Exam: CT [...] Thank you for referring JAMES RAMOS to [facility]. Legally authenticated by JESS CABALLERO 2022-08-09 14:49:49 Procedure Note Provider, [facility] - 08/09/2022 [place] [id number] Name: JAMES RAMOS Exam Date: 08/09/2022 : 1990 Age 31 Gender: F Physician: ADARSH GAN Facility: [facility] Facility HSV: Outpatient Exam: CT [...] Thank you for referring JAMES RAMOS to [facility]. Legally authenticated by JESS CABALLERO 2022-08-09 [...] documented as of this encounter Care Teams Qa Internship Relationship Specialty Start Date End Date Marsha Mora APRN [address] [place] [address] PCP - General 08/22/20 10/17/22 Sharmin Awad APRN [address] [place] [address] PCP - General Family Medicine 10/18/22 documented as of this encounter
--- OUTSIDE RECORDS SUMMARY | 2024-10-08 14:58 | XMS_ITS | Encounter Summary ---
Author Organization Healthcare Address [address] [place] [address] Care Team Providers Care Ship Construction Teacher Name Role Phone Marsha Mora APRN Primary Care Provider [phone] Sharmin Awad APRN Primary Care Provider [phone] Encounter Details Date Type Department Care Team ([facility] st Contact Info) Description 04/11/2022 Outside Procedure External Location [address] [place] [address] Provider, Nithin [place] Social History Tobacco Use Types Packs/Day Years [...] any clubs o r organizations such as anglican groups, unions, fraternal or athletic groups, or [...] Recorded Patient Health Questionnaire-2 Score 4 11/26/2021 [facility] - Occupational Stress [...] place to sleep or slept in a penitentiary (including now)? No 10/15/2020 Comments No Sex [...] 11/14/2024 2:10 PM EDT Office Visit [facility] Medicine Specialties [address], [address] [place] [address] Ginny Quan M, SORAIDA [address] [place] [address] documented as of this encounter Procedures Procedure Name Priority Date/Time Associated Diagnosis Comments CT ABDOMEN PELVIS W IV CONTRAST 04/11/2022 4:09 PM EST documented in this encounter Results * CT Abdomen Pelvis w IV Contrast (04/11/2022 4:09 PM EST) Anatomical Region Laterality Modality Abdomen, Pelvis Computed Tomogra phy 04/11/2022 4:09 PM EST Narrative 04/11/2022 6:50 PM EST [place] [id number] [place] [address] Name: JAMES RAMOS Exam Date: 04/11/2022 : 1990 Age 31 Gender: F Physician: HERBERT HERNANDEZ Facility: [facility] Facility HSV: Outpatient Exam: CT ABD PEL [...] for referring JAMES RAMOS to [facility]. Legally authenticated by ZULEYMA Gayle III 2022-04-11 18:37:58 Procedure Note Provider, Generic [place] - 04/11/2022 [place] [id number] Name: JAMES RAMOS Exam Date: 04/11/2022 : 1990 Age 31 Gender: F Physician: HEREBRT HERNANDEZ Facility: [facility] Facility HSV: Outpatient Exam: CT ABD PEL [...] for referring JAMES RAMOS to [facility]. Legally authenticated by ZULEYMA Gayle III 2022-04-11 18:37:58 us Generic [place] Provider IMG CT PROCEDURES Fi nal Result [...] documented as of this encounter Care Teams Ship Construction Teacher Relationship Specialty Start Date End Date Marsha Mora APRN [address] [place] [address] PCP - General 08/22/20 10/17/22 Sharmin Awad APRN [address] [place] [address] PCP - General Family Medicine 10/18/22 documented as of this encounter
--- OUTSIDE RECORDS SUMMARY | 2024-10-08 14:58 | XMS_ITS | Encounter Summary ---
Author Organization Healthcare Address [address] [place] [address] Care Team Providers Care Water Pumping Station Engineer Name Role Phone Marsha Mora JUNIOR MECHANICAL ENGINEER Primary Care Provider [phone] Sharmin Awad APRN Primary Care Provider [phone] Encounter Details Date Type Department Care Team ([facility] Contact Info) Description 01/20/2022 Outside Procedure External Location [address] [place] [address] Sharmin Lambert, SORAIDA [address] [place] [address] Social History Tobacco Use Types [...] often do you attend chur ch or uatsdin services? Never 10/15/2020 Do you belong to [...] Recorded Patient Health Questionnaire-2 Score 4 11/26/2021 [facility] Questionnaire Answer [...] Description 11/14/2024 2:10 PM EDT Office Visit [facility] Medicine Specialties [address], [address] [place] [address] Ginny Quan, JUNIOR MECHANICAL ENGINEER [address] [place] [address] documented as of this encounter Procedures Procedure Name Priority Date/Time Associated Diagnosis Comments US LIVER SCREEN 01/20/2022 9:56 AM EDT documented in this encounter Results * US Liver Screen (01/20/2022 9:56 AM EDT) Anatomical Region Laterality Modality Abdomen, Liver Ultrasound 01/20/2022 9:56 AM EDT Narrative 01/20/2022 11:29 [place] [address] Name: JAMES RAMOS Exam Date: 01/20/2022 : 1990 Age 31 Gender: F Physician: SHARMIN LAMBERT Facility: [facility] Facility HSV: Outpatient Exam: LIVER ULTRASOUND [...] Thank you for referring JAMES RAMOS to [facility]. Legally authenticated by CELINA ANAND 2022-01-20 11:18:05 Procedure Note Provider, Generic [place] - 01/20/2022 [place] [address] Name: JAMES RAMOS Exam Date: 01/20/2022 : 1990 Age 31 Gender: F Physician: SHARMIN LAMBERT Facility: [facility] Facility HSV: Outpatient Exam: LIVER ULTRASOUND [...] Thank you for referring JAMES RAMOS to [facility]. Legally authenticated by CELINA ANAND [...] documented as of this encounter Care Teams Water Pumping Station Engineer Relationship Specialty Start Date End Date Marsha Mora APRN [address] [place] [address] PCP - General 08/22/20 10/17/22 Sharmin Awad APRN [address] [place] [address] PCP - General Family Medicine 10/18/22 documented as of this encounter
--- OUTSIDE RECORDS SUMMARY | 2024-10-08 14:58 | XMS_ITS | Encounter Summary ---
Author Organization Healthcare Address [address] [place] [id number] Care Team Providers Care Journeyman Plumber Name Role Phone Sharmin Awad APRN Primary Care Provider [phone] Encounter Details Date Type Department Care Team (Late st Contact Info) Description 08/29/2023 Orders Only External Location [address] [place] [address] Adriana Mathews [address] [place] [id number] Social History Tobacco Use Types Packs/Day Years [...] often do you attend chur ch or adventism services? Never 10/15/2020 Do you belong to any clubs o r organizations such as religion groups, unions, fraternal or athletic groups, or [...] Recorded Patient Health Questionnaire-2 Score 0 11/23/2022 [facility] [...] a senior living (including now)? No 10/15/2020 PHQ-2A Answer Date [...] Description 11/14/2024 2:10 PM EDT Office Visit [facility] [address], [address] [place] [address] Ginny Quan M, NET SOFTWARE ENGINEER [address] [place] [address] documented as of this encounter [...] documented as of this encounter Care Teams Journeyman Plumber Relationship Specialty Start Date End Date Sharmin Awad APRN [address] [place] [address] PCP - General Family Medicine 10/18/22 documented as of this encounter
--- OUTSIDE RECORDS SUMMARY | 2024-10-08 14:58 | XMS_ITS | Encounter Summary ---
Author Organization Healthcare Address [address] [place] [address] Care Team Providers Care Boilermaker Apprentice Name Role Phone Marsha Mora APRN Primary Care Provider [phone] Sharmin Awad APRN Primary Care Provider [phone] Encounter Details Date Type Department Care Team ([facility] st Contact Info) Description 05/07/2022 Outside Procedure External Location [address] [place] [address] Provider, Nithin [place] Social History Tobacco Use Types Packs/Day Years [...] often do you attend chur ch or alevism services? Never 10/15/2020 Do you belong to any clubs o r organizations such as temple groups, unions, fraternal or athletic groups, or [...] Recorded Patient Health Questionnaire-2 Score 4 11/26/2021 [facility] ional Health - Occupational [...] in a mcc (including now)? No 10/15/2020 Comments No Sex [...] Description 11/14/2024 2:10 PM EDT Office Visit [facility] Medicine Specialties [address], [address] [place] [address] Ginny Quan M, SORAIDA [address] [place] [address] documented as of this encounter Procedures Procedure Name Priority Date/Time Associated Diagnosis Comments CT ABDOMEN PELVIS W IV CONTRAST 05/07/2022 1:02 PM EST documented in this encounter Results * CT Abdomen Pelvis w IV Contrast (05/07/2022 1:02 PM EST) Anatomical Region Laterality Modality Abdomen, Pelvis Computed Tomogra phy 05/07/2022 1:02 PM EST Narrative 05/07/2022 2:55 [place] [address] Name: JAMES RAMOS Exam Date: 05/07/2022 : 1990 Age 31 Gender: F Physician: JUANCARLOS SALDAÑA Facility: [facility] Facility HSV: Outpatient Exam: CT ABD PEL [...] Thank you for referring JAMES RAMOS to [facility]. Legally authenticated by JESS CABALLERO 2022-05-07 14:43:47 Procedure Note Provider, [facility] - 05/07/2022 [place] [id number] Name: JAMES RAMOS Exam Date: 05/07/2022 : 1990 Age 31 Gender: F Physician: JUANCARLOS SALDAÑA Facility: [facility] Facility HSV: Outpatient Exam: CT ABD PEL [...] Thank you for referring JAMES RAMOS to [facility]. Legally authenticated by JESS CABALLERO 2022-05-07 14:43:47 us Generic [place] Provider IMG CT PROCEDURES Fi nal Result [...] documented as of this encounter Care Teams Boilermaker Apprentice Relationship Specialty Start Date End Date Marsha Mora APRN [address] [place] [phone] PCP - General 08/22/20 10/17/22 Sharmin Awad APRN [address] [place] [address] PCP - General Family Medicine 10/18/22 documented as of this encounter
--- OUTSIDE RECORDS SUMMARY | 2024-10-08 14:58 | XMS_ITS | Encounter Summary ---
Author Organization Healthcare Address [address] [place] [address] Care Team Providers Care Roller Operator Name Role Phone Marsha Mora APRN Primary Care Provider [phone] Sharmin Awad APRN Primary Care Provider [phone] Encounter Details Date Type Department Care Team ([facility] st Contact Info) Description 04/11/2022 Outside Procedure External Location [address] [place] [address] Provider, Nithin [place] Social History Tobacco Use Types Packs/Day Years [...] any clubs o r organizations such as baptism groups, unions, fraternal or athletic groups, or [...] Recorded Patient Health Questionnaire-2 Score 4 11/26/2021 [facility] Occupat ional Health - Occupational [...] Description 11/14/2024 2:10 PM EDT Office Visit [facility] Medicine Specialties [address] [place] [address] Ginny Quan M, SORAIDA [address] [place] [address] documented as of this encounter Procedures Procedure Name Priority Date/Time Associated Diagnosis Comments XR CHEST 1 VIEW 04/11/2022 4:09 PM EST documented in this encounter Results * XR Chest 1 View (04/11/2022 4:09 PM EST) Anatomical Region Laterality Modality Chest Digital Radiogra phy 04/11/2022 4:09 PM EST Narrative 04/12/2022 8:53 [place] [address] Name: JAMES RAMOS Exam Date: 04/11/2022 : 1990 Age 31 Gender: F Physician: HERBERT HERNANDEZ Facility: [facility] Facility HSV: Outpatient Exam: CHEST PORTABLE [...] Thank you for referring JAMES RAMOS to [facility]. Legally authenticated by POPE JAMES Arias 2022-04-12 08:42:01 Procedure Note Provider, Generic [place] - 04/12/2022 [place] [address] Name: JAMES RAMOS Exam Date: 04/11/2022 : 1990 Age 31 Gender: F Physician: HERBERT HERNANDEZ Facility: [facility] Facility HSV: Outpatient Exam: CHEST PORTABLE [...] Thank you for referring JAMES RAMOS to [facility]. Legally authenticated by POPE JAMES Arias 2022-04-12 08:42:01 us Generic [place] Provider IMG XR PROCEDURES Fi nal Result [...] documented as of this encounter Care Teams Roller Operator Relationship Specialty Start Date End Date Marsha Mora APRN [address] [place] [address] PCP - General 08/22/20 10/17/22 Sharmin Awad APRN [address] [place] [address] PCP - General Family Medicine 10/18/22 documented as of this encounter
--- OUTSIDE RECORDS SUMMARY | 2024-10-08 14:58 | XMS_ITS | Clinical Summary ---
Author Organization [facility] Address [address] [place] [address] Care Team Providers Care Financial Aid Administrator Name Role Phone Sharmin Awad APRN Primary Care Provider [phone] Allergies Active Allergy Reactions Criticality Noted Date [...] reaction to retinal in past - has director of community services - we discussed that OCPs could help [...] from Dr. Stevenson's the ED physician in [place] told him that the ultrasound was normal. [...] answers, or a second opinion with another COFFIN MAKER and surgeon could be beneficial to help [...] abscess. - I called radiology yesterday at [facility] to discuss drain placement - they are [...] often do you attend chur ch or jehovah's witness services? Never 10/15/2020 Do you belong to any clubs o r organizations such as yarsani groups, unions, fraternal or athletic groups, or [...] Recorded Patient Health Questionnaire-2 Score 0 05/16/2024 [facility] - Occupational [...] in a penitentiary (including now)? No 10/15/2020 PHQ-2A Answer Date [...] Description 11/14/2024 2:10 PM EDT Office Visit [place] [facility] [address] [place] [address] Ginny Quan M, MAINTENANCE MECHANIC SUPERVISOR [address] [place] [address] Health Maintenance Due Date Last Done Comments [facility]-/Child/Adol SDOH Screenings 1990 [id number] Vaccine (#1) 08/12/1996 [facility]-Varicella Vaccines (1 of [...] 1/2 Differentiation (12/20/2023 12:07 PM EDT) Pathologist [facility] [place] HIV 1 & 2 Antibody/Antigen Screen Non Reactive Non Reactive 12/20/2023 1:15 PM EDT [facility] Comment:Screening for HIV 1 & 2 antibodies, and P24 antigen is NONREACTIVE. No confirmatory testing is required. Blood Venous blood specimen / Unknown Venipuncture / Unknown 12/20/2023 12:07 PM EDT 12/20/2023 12:32 PM EDT Renetta Lopez MD LAB BLOOD ORDERABLES Final Resu lt Performing Organization Address City/[facility]/ZIP Co de Phone Number [facility] [address] [place] [address] * Acute Hepatitis Panel (06/23/2023 10:22 AM EDT) [facility] Hepatitis B Surf Antigen Negative Negative 06/23/2023 12:49 PM EDT [facility] Hepatitis C Antibody Negative Negative 06/23/2023 12:49 PM EDT [facility] Hepatitis A Antibody IgM Negative Negative 06/23/2023 12:49 PM EDT [facility] Hepatitis B Core Antibody IgM Negative Negative 06/23/2023 12:49 PM EDT [facility] Blood Venous blood specimen / Unknown Venipuncture / Unknown 06/23/2023 10:22 AM EDT 06/23/2023 10:22 AM EDT Ginny Quan APRN LAB BLOOD ORDERABLES Final Result Performing Organization Address City/[facility] Co de Phone Number [facility] [address] [place] [address] * (ABNORMAL) Pap Smear (03/03/2021 2:47 PM EST) Case Report Cytology Case: [id number] Authorizing Provider: Carter Conner MD Collected: 03/03/2021 1447 Ordering Location: Obstetrics & Gynecology Received: 03/04/2021 0837 First Screen: Faraz Wild, [place] Pathologist: Rose Porter MD Specimen: ThinPrep Pap Test, Liquid-Based Cervical/Vagina l, CERVICAL/VAGINA L 03/16/2021 10:12 AM EST [facility] Interpretation ATYPICAL SQUAMOUS CELLS OF UNDETERMINED SIGNIFICANCE (ASCUS)(A) 03/16/2021 10:12 AM EST [facility] at 1012 EST Specimen Adequacy Satisfactory for evaluation; endocervical/tr ansformation zone component present. Slide imaged by the ThinPrep Imaging system and selected 22 sagastume reviewed then full manual screening. 03/16/2021 10:12 AM EST [facility] Cervical cytology is a screening [...] results is suggested (please call Microbiology at [phone] for results). 03/16/2021 10:12 AM EST [facility] Menstrual Status Cyclic 03/16/20 10:12 AM EST [facility] History of Hysterectomy Not Applicable 03/16/2021 10:12 AM EST [facility] Contraceptive History Not Applicable 03/16/2021 10:12 AM EST [facility] Last Menstrual Period 01/31/2021 03/16/2021 10:12 AM EST [facility] Clinical Information N92.0 - Menorrhagia with regular cycle [ICD-10-CM] 03/16/2021 10:12 AM EST [facility] Screening Type Routine Screen 2020 10:12 AM EST [facility] High Risk? No 03/16/2021 10:[address] [facility] HPV Testing Requested? Request HPV Testing if ASCUS (Women 25 Years or Older) 03/16/2021 10:12 AM EST [facility] Previous Cancer History No 03/16/2021 10:12 AM EST [facility] Swab Vaginal and cervical cytologic material / Unknown Non-blood Collection / Unknown 03/03/2021 2:47 PM EST 03/04/2021 8:37 AM EST Carter Conner MD LAB CYTOLOGY ORDERABLES Final R esult [facility] [address] [place] [phone] from Last 3 Months or Most Recently Relevant to Health Maintenance Insurance [facility] MEDICAID Care Teams Financial Aid Administrator Relationship Specialty Start Date End Date Sharmin Awad APRN [address] [place] [address] PCP - General Family Medicine 10/18/22
--- OUTSIDE RECORDS SUMMARY | 2024-10-08 14:58 | XMS_ITS | Encounter Summary ---
Author Organization Healthcare Address [address] [place] [address] Care Team Providers Care Creche Attendant Name Role Phone Abby, Marsha Nalini QUIGLEY Primary Care Provider [phone] Sharmin Awad APRN Primary Care Provider [phone] Encounter Details Date Type Department Care Team ([facility] st Contact Info) Description 04/26/2022 Outside Procedure External Location [address] [place] [address] Carter Conner MD [address] [place] [address] Social History Tobacco Use Types [...] often do you attend chur ch or druze services? Never 10/15/2020 Do you belong to [...] Score 4 11/26/2021 [facility] Questionnaire Answer Date [...] Description 11/14/2024 2:10 PM EDT Office Visit [place] [facility] [address] [place] [address] Ginny Quan, SERVICE DESK ASSOCIATE [address] [place] [address] documented as of this encounter Procedures Procedure Name Priority Date/Time Associated Diagnosis Comments CT ABDOMEN PELVIS W IV CONTRAST 04/26/2022 12:59 PM EST documented in this encounter Results * CT Abdomen Pelvis w IV Contrast (04/26/2022 12:59 PM EST) Anatomical Region Laterality Modality Abdomen, Pelvis Computed Tomogra phy 04/26/2022 12:5 9 PM EST Narrative 04/26/2022 2:56 PM EST [facility] [address] [place] [address] Name: JAMES RAMOS Exam Date: 04/26/2022 : 1990 Age 31 Gender: F Physician: CARTER CONNER Facility: [facility] Facility HSV: [...] Thank you for referring JAMES RAMOS to [facility]. Legally authenticated by POPE JAMES Arias 2022-04-26 14:45:02 Procedure Note Provider, Generic [place] - 04/26/2022 [place] [address] Name: JAMES RAMOS Exam Date: 04/26/2022 : 1990 Age 31 Gender: F Physician: CARTER CONNER Facility: [facility] Facility HSV: [...] Thank you for referring JAMES RAMOS to [facility]. Legally authenticated by POPE JAMES Arias [...] documented as of this encounter Care Teams Creche Attendant Relationship Specialty Start Date End Date Marsha Mora APRN [address] [place] [address] PCP - General 08/22/20 10/17/22 Sharmin Awad APRN [address] [place] [address] PCP - General Family Medicine 10/18/22 documented as of this encounter
--- OUTSIDE RECORDS SUMMARY | 2024-10-08 14:58 | XMS_ITS | Data Portability ---
Author Organization [facility] - [place] & [place] Caceres ADMIN Address [address] [place] [id number] Care Team Providers Care Log Brander Name Role Phone GUILHERME CHIANG Primary Care [...] hepatitis B vaccination in the office today. [email or web address] Not available 07/27/2022 10:53:52 08/06/2022 08/06/2022 31-year-old [...] x14 days for diarrhea -Colonoscopy scheduled 08/26/22 [email or web address] Not available 08/06/2022 13:42:58 09/14/2022 09/14/2022 32-year-old [...] to monitor her liver enzymes. Labs at [facility] last week showed AST elevated at [...] not given a diagnosis. f/u 6 months [email or web address] Not available 09/14/2022 13:01:39 03/16/2023 03/16/2023 32-year-old [...] 6 weeks to access response to Linzess [email or web address] Not available 03/16/2023 11:13:54 Plan of Treatment Reminders Order Date Submit Date Provider Last Modified By Organization Details Last Modified Time Details Appointments OV NEW 15 2024 09:00A M Chandan Griffin Jr, MD Not available Not available Not available Lab None recorded. Referral None recorded. Procedures None recorded. Surgeries None recorded. Imaging None recorded. Medication Orders Linzess 72 mcg capsule 2022 023 [place] [facility], [address], [address], 03/16/2023 11:07:32 Xifaxan 550 mg tablet 2022 023 [email or web address] [facility], [address], [address], 08/06/2022 13:23:14 [email or web address] ne 20 mg tablet 2022 023 [email or web address] [facility], [address], [address], 07/27/2022 10:47:32 Patient TargetsNo targets recorded. Patient InstructionsNo instructions recorded. Reason for Referral None Reported. Results Created Date Observation Date Name Description Value Unit Range Abnormal Flag Note LastModifiedBy Organization Detail LastModifiedTime 04/20/1904/20/2022 CBC AUTO W DIFF WBC 6.9 K/uL 4.0-10 .5 Not Available [facility] ([facility]) [address], [place], [address], 04/20/2022 11:48:56 04/20/1904/20/2022 CBC AUTO W DIFF RBC 4.1 M/mm3 4.2-6. 4 low Not Available [facility] ([facility]) [address], [place], [address], 04/20/2022 11:48:56 04/20/1904/20/2022 CBC AUTO W DIFF HGB 11.3 gm/dL 12.5-1 6.0 low Not Available [facility] ([facility]) [address] , [place], [address], 04/20/2022 11:48:56 04/20/19 23 04/20/2022 CBC AUTO W DIFF HCT 36.4 % 37.0-4 7.0 low Not Available [facility] ([facility]) [address] , [place], [address], 04/20/2022 11:48:56 04/20/19 23 04/20/2022 CBC AUTO W DIFF MCV 88.8 fL 78-100 Not Available [facility] ([facility]) [address], [place], [address], 04/20/2022 11:48:56 04/20/19 23 04/20/2022 CBC AUTO W DIFF MCH 27.6 pg 27-31 Not Available [facility] ([facility]) [address] , [place], [address], 04/20/2022 11:48:56 04/20/19 23 04/20/2022 CBC AUTO W DIFF MCHC 31.0 g/dL 32-36 low Not Available [facility] ([facility]) [address] , [place], [address], 04/20/2022 11:48:56 04/20/19 23 04/20/2022 CBC AUTO W DIFF RDW 14.7 % 11.5-1 4.0 high Not Available [facility] ([facility]) [address], [place], [address], 04/20/2022 11:48:56 04/20/19 23 04/20/2022 CBC AUTO W DIFF platelet count 258 K/uL 150-45 0 Not Available [facility] ([facility]) [address] [place], [address], 04/20/2022 11:48:56 04/20/19 23 04/20/2022 CBC AUTO W DIFF neutrophil% 69.3 % 43-65 high Not Available [facility] ([facility]) [address] [facility], [place], [address], 04/20/2022 11:48:56 04/20/19 23 04/20/2022 CBC AUTO W DIFF lymphocyte% 22.0 % 20.5-4 5.5 Not Available [facility] ([facility]) [address] [place], [address], 04/20/2022 11:48:56 04/20/19 23 04/20/2022 CBC AUTO W DIFF monocyte% 5.5 % 5.5-11 .7 Not Available [facility] ([facility]) [address] [place], [address], 04/20/2022 11:48:56 04/20/19 23 04/20/2022 CBC AUTO W DIFF eosinophil% 3.1 % 0.9-2. 9 high Not Available [facility] ([facility]) [address] [place], [address], 04/20/2022 11:48:56 04/20/19 23 04/20/2022 CBC AUTO W DIFF basophil% 0.1 % 0.2-1. 0 low Not Available [facility] ([facility]) [address] [place], [address], 04/20/2022 11:48:56 04/20/19 23 04/20/2022 CBC AUTO W DIFF neutrophil# 4.8 K/uL 2.2-4. 8 Not Available [facility] ([facility]) [address] [place], [address], 04/20/2022 11:48:56 04/20/19 23 04/20/2022 CBC AUTO W DIFF lymphocyte# 1.5 cell/ mcL 1.3-2. 9 Not Available [facility] ([facility]) [address], [place], [address], 04/20/2022 11:48:56 04/20/19 23 04/20/2022 CBC AUTO W DIFF monocyte# 0.4 cell/ mcL 0.3-0. 8 Not Available [facility] ([facility]) [address], [place], [address], 04/20/2022 11:48:56 04/20/19 23 04/20/2022 CBC AUTO W DIFF eosinophil# 0.2 cell/ mcL 0-0.2 Not Available [facility] ([facility]) [address], [place], [address], 04/20/2022 11:48:56 04/20/19 23 04/20/2022 CBC AUTO W DIFF basophil# 0.0 cell/ mcL 0.0-1. 0 Not Available [facility] ([facility]) [address], [place], [address], 04/20/2022 11:48:56 04/20/19 23 04/20/2022 CBC AUTO W DIFF manual differential NO Not Available [facility] ([facility]) [address], [place], [address], 04/20/2022 11:48:56 04/20/19 23 04/20/2022 IRON STUDY (IRON /TIBC /%SAT ) iron 126 mcg/m L 40-180 Not Available [facility] ([facility]) [address] [facility], [place], [address], 04/20/2022 12:30:51 04/20/19 23 04/20/2022 IRON STUDY (IRON /TIBC /%SAT ) TIBC 292 mcg/d L 250-45 0 Not Available [facility] ([facility]) [address] [facility], [place], [address], 04/20/2022 12:30:51 04/20/19 23 04/20/2022 IRON STUDY (IRON /TIBC /%SAT ) %sat 43 15-55 Not Available [facility] ([facility]) [address], [place], [address], 04/20/2022 12:30:51 04/20/19 23 04/20/2022 GERALDO TIN ferritin, serum 145 NG/mL 3-244 Not Available [facility] ([facility]) [address], [place], [address], 04/20/2022 12:32:04 04/20/19 23 04/20/2022 COMP METAB OLIC PANEL sodium 137 mmol/ L 136-14 5 Not Available [facility] ([facility]) [address], [place], [address], 04/20/2022 12:32:05 04/20/19 23 04/20/2022 COMP METAB OLIC PANEL potassium 4.4 mmol/ L 3.6-5. 0 Not Available [facility] ([facility]) [address] [place], [address], 04/20/2022 12:32:05 04/20/19 23 04/20/2022 COMP METAB OLIC PANEL chloride 100 mmol/ L 98-107 Not Available [facility] ([facility]) [address] [place], [address], 04/20/2022 12:32:05 04/20/19 23 04/20/2022 COMP METAB OLIC PANEL carbon dioxide 28.0 mmol/ L 21.0-3 2.0 Not Available [facility] ([facility]) [address] [place], [address], 04/20/2022 12:32:05 04/20/19 23 04/20/2022 COMP METAB OLIC PANEL anion gap 13.4 Not Available [facility] ([facility]) [address] [place], [address], 04/20/2022 12:32:05 04/20/19 23 04/20/2022 COMP METAB OLIC PANEL glucose 88 mg/dL 70-120 Not Available [facility] ([facility]) [address] , [place], [address], 04/20/2022 12:32:05 04/20/19 23 04/20/2022 COMP METAB OLIC PANEL BUN 13 mg/dL 7-18 Not Available [facility] ([facility]) [address] , [place], [address], 04/20/2022 12:32:05 04/20/19 23 04/20/2022 COMP METAB OLIC PANEL creatinine 1.0 mg/dL 0.6-1. 3 Not Available [facility] ([facility]) [address] , [place], [address], 04/20/2022 12:32:05 04/20/19 23 04/20/2022 COMP METAB OLIC PANEL glomerular filtration rate >60 mlper min 60- Not Available [facility] ([facility]) [address] , [place], [address], 04/20/2022 12:32:05 04/20/19 23 04/20/2022 COMP METAB OLIC PANEL total protein 7.2 g/dL 6.4-8. 2 Not Available [facility] ([facility]) [address] , [place], [address], 04/20/2022 12:32:05 04/20/19 23 04/20/2022 COMP METAB OLIC PANEL albumin 3.7 g/dL 3.4-5. 0 Not Available [facility] ([facility]) [address] , [place], [address], 04/20/2022 12:32:05 04/20/19 23 04/20/2022 COMP METAB OLIC PANEL globulin 3.5 Not Available [facility] ([facility]) [address], [place], [address], 04/20/2022 12:32:05 04/20/19 23 04/20/2022 COMP METAB OLIC PANEL alb/glob ratio 1.1 0.7-2 Not Available [facility] ([facility]) [address], [place], [address], 04/20/2022 12:32:05 04/20/19 23 04/20/2022 COMP METAB OLIC PANEL calcium 9.6 mg/dL 8.5-10 .5 Not Available [facility] ([facility]) [address], [place], [address], 04/20/2022 12:32:05 04/20/19 23 04/20/2022 COMP METAB OLIC PANEL bilirubin total 0.34 mg/dL 0.10-1 .00 Not Available [facility] ([facility]) [address] , [place], [address], 04/20/2022 12:32:05 04/20/19 23 04/20/2022 COMP METAB OLIC PANEL AST (SGOT) 38 U/L 0-37 high Not Available [facility] ([facility]) [address] , [place], [address], 04/20/2022 12:32:05 04/20/19 23 04/20/2022 COMP METAB OLIC PANEL ALT (SGPT) 43 U/L 0-65 Not Available [facility] ([facility]) [address] , [place], [address], 04/20/2022 12:32:05 04/20/19 23 04/20/2022 COMP METAB OLIC PANEL alk phosphatase 84 U/L 46-116 Not Available [facility] ([facility]) [address] , [place], [address], 04/20/2022 12:32:05 04/13/19 23 04/14/2022 [email or web address] [email or web address] am No observ ation record ed. [facility] [address], [place], [address], 04/21/2022 14:37:17 04/28/19 23 04/26/2022 CT, abdom en + pelvi s, w/ contr ast No observ ation record ed. [email or web address] [facility] ([facility]) [address], [place], [address], 04/29/2022 08:32:02 Result Notes None recorded. Problems Name Problem SNOMED Code Status Onset Date Resolution Date Notes Provider Name and Address Organization Details Recorded Time Abdominal pain 63472212 Active 2022 Henna whelan, [place] - [facility] - [place] & [place] 3 10:58:39 Chest pain 65523236 Active 2022 Henna whelan, [place] - [facility] [place] 3 10:58:44 Dyspnea on exertion 80906370 Active 2022 Matthew Gordon MD [address] [facility], [place], [address] , [place] - [facility] [place] & [place] 3 11:36:06 Cyst of ovary 72502102 Active 2022 Anastasia whelan, [place] - [facility] [place] & [place] 3 10:10:19 Loose stool 713377167 Active 2022 Joe Salmeron PA-C [address] , [place], [address] , [place] - [facility] - [place] & [place] 3 10:23:14 Pain associated with defecation 911075584 Active 2022 Joe Salmeron PA-C [address] , [place], [address] , [place] - [facility] [place] & [place] 3 10:23:19 Homogeneous antinuclear antibody pattern 159048706 Active 2022 Joe Salmeron PA-C [address], [place], [address] , [place] - [facility] [place] & [place] 3 10:24:55 Colitis 66770751 Active 2022 Joe Salmeron PA-C [address], [place], [address] , [place] - [facility] [place] [facility] [place] 3 10:32:51 Increased liver function 04532541 Active 2022 Joe Salmeron PA-C [address], [place], [address] , [place] - [facility] - [place] & [place] 3 10:50:40 Non-alcoholic fatty liver 278414652 Active 2022 Joe Salmeron PA-C [address], [place], [address] , [place] - [facility] - [place] & [place] 3 10:50:44 Irritable bowel syndrome with diarrhea 537197805 Active 2022 Joe Salmeron PA-C [address], [place], [address] , [place] - [facility] [place] & [place] 3 11:07:26 Chronic idiopathic constipation 14101273 Active 2022 Joe Salmeron PA-C [address], [place], [address] , [place] - [facility] [place] & [place] 3 11:06:57 Problem Notes None recorded. Procedures Surgical History Date Name Laterality Status Provider Name and Address Organization Details Recorded Time 04/11/19 23 Abdominal Surgery completed Blanca CLARK - [facility] & [place] 04/29/2022 10:59:15 04/11/19 23 Hysterectomy completed Anastasia CLARK - [facility] - [place] & [place] 07/27/2022 10:07:32 04/11/19 22 Abdominal Surgery completed Blanca Toro [place] - [facility] - [place] & [place] 04/29/2022 10:59:14 02/19/20 21 Date of Last Pap Smear completed Henna CLARK - [facility] - [place] & [place] 04/13/2022 10:49:53 04/11/19 21 Abdominal Surgery completed Blanca CLARK - [facility] - [place] & [place] 04/29/2022 10:59:15 04/11/19 21 Other completed Henna CLARK - [facility] - [place] & [place] 04/13/2022 10:49:53 04/11/19 19 Other completed Henna CLARK - [facility] - [place] & [place] 04/13/2022 10:49:53 04/11/19 16 Other completed Henna CLARK - [facility] - [place] & [place] 04/13/2022 10:49:53 04/11/19 15 Abdominal Surgery completed Blanca CLARK - [facility] - [place] & [place] 04/29/2022 10:59:14 04/11/19 14 Gastrointestinal Surgery completed Henna CLARK - [facility] - [place] & [place] 04/13/2022 10:49:53 04/11/19 13 Other completed Henna CLARK - [facility] - [place] & [place] 04/13/2022 10:49:53 Imaging Results None recorded. Procedure Notes None recorded. Medical Equipment None Reported. Allergies Allergen ID Allergen Name Allergen Category Reaction Reaction Severity Criticality Documentation Date Start Date Code Code System Note Provider Name and Address Organization Details Recorded Time 57543 latex environme nt,medica tion Not available Not available Not available 04/13/2022 59847 91 RxNorm Blanca whelan, [place] - [facility] & [place] 3 10:59:09 30502 rubber, unspecifi ed environme nt,medica tion Not available Not available Not available 04/20/2022 05521 5 UNK Blanca whelan, [place] - [facility] & [place] 3 10:59:09 73425 Latex (substanc e) environme nt,medica tion Not available Not available Not available 04/29/2022 10247 8007 SNOMED Blanca whelan, [place] - [facility] - [place] & [place] 3 10:59:09 Medications Name Sig Start Date [...] Not Available Not Keyana ilable Not Available [place] 0.25 mg-0.035 mg tablet TAKE 1 TABLET [...] Last Updated DateTime 04/28/2022 165.1 cm [facility] 04/28/2022 11:42:59 Date Recorded Body height Body mass index (BMI) Body weight Heart rate Systolic blood pressure Diastolic blood pressure Provider Name and Address Organization Details Last Updated DateTime 3 165.1 cm 25.1 kg/m2 22792.4 5 g 85 /min 124 mm[Hg] 82 mm[Hg] Anastasia Robertson [facility] 3 09:28:44 Date Recorded Body height Heart rate Systolic blood pressure Diastolic blood pressure Provider Name and Address Organization Details Last Updated DateTime 08/06/2022 165.1 cm 78 /min 110 mm[Hg] 78 mm[Hg] [facility] [place] 08/06/2022 10:14:43 Date Recorded Body height Body mass index (BMI) Body weight Oxygen saturation Oxygen saturation in Arterial blood by Pulse oximetry Heart rate Systolic blood pressure Diastolic blood pressure Provider Name and Address Organization Details Last Updated DateTime 3 157.48 cm 26.5 kg/m2 82543.2 5 g 96 % 96 % 63 /min 92 mm[Hg] 66 mm[Hg] Allie Ornelas [facility] & [place] 3 10:40:15 Date Recorded Body height Body mass index (BMI) Body weight Body temperature Oxygen saturation Oxygen saturation in Arterial blood by Pulse oximetry Heart rate Heart rate Systolic blood pressure Diastolic blood pressure Provider Name and Address Organization Details Last Updated DateTime 3 157.48 cm 25.4 kg/m2 36967.7 g 97.3 [degF] 98 % 98 % 78 /min 79 /min 100 mm[Hg] 69 mm[Hg] Rahda Orellanawell [facility] & [place] 3 10:33:24 Social History Question Answer Notes LastModified by [facility] [employer] ion Details LastModified Time Tobacco Smoking Status Former Smoker Henna Sanchezady [facility] & [place] 04/13/2022 10:49:53 Do You Have An Advance [...] anxious, or unable to sleep at night)? [id number] Information not available 04/13/2022 Family History Nothing Reported Notes:family hx of cardiac d isease heart failure, AL,CAD, HTN, HLD Medical History No medical history [...] A, adult 2 completed Not Available [facility] 03/16/2023 10:23:08 Hep B, adult 2 completed Not Available [facility] 03/16/2023 10:23:08 Td (adult), 2 Lf tetanus toxoid, preservative free, adsorbed 4 completed Anastasia Harris null, [place] [facility] [place] 03/11/2022 10:38:45 Tdap 0 completed Anastasia [place] [facility] [place] 03/11/2022 10:38:45 Hep B, adolescent or pediatric 4 completed Anastasia [place] [facility] [place] 03/11/2022 10:38:45 Hep B, adolescent or pediatric 4 completed Anastasia [place] [facility] [place] 03/11/2022 10:38:45 Tdap 9 completed Anastasia Harris [place] [facility] [place] 03/11/2022 10:38:45 Hep B, adult 3 completed Not Available [facility] 03/16/2023 10:23:08 Hep A, adult 3 completed Not Available [facility] 03/16/2023 10:23:08 Hep B, adult 3 completed [facility] Available [facility] 03/16/2023 10:23:08 Past Encounters Encounter ID Performer Location Encounter Start Date Encounter Closed Date Diagnosis/Indication Diagnosis SNOMED-CT Code Diagnosis ICD10 Code Diagnosis Note [id number] Sharmin Mckeon NP [facility] [address] [place] [address] 01/07/2022 10:52:25 01/07/2022 11:35:01 Liver enzymes level above reference range 422866104 R74.01 Will check labs. Avoid alcohol and NSAIDs. Liver ultrasound ordered. Follow-up in 4 weeks. [id number] Sharmin Mckeon NP [facility] [address] [address] 02/04/2022 09:56:34 02/04/2022 10:46:05 Steatotic liver disease 691355009 K76.0 - CAM fibrosure S1-S2- did have an episode of binge drinking for several months which has resolved and she no longer drinks alcohol- will initiate hepatitis- A and B vaccine series today- follow-up in 6 months (2 months for #2 Hep B vaccinatio n) [id number] Richard Connor MD [facility] [address] [place] [address] 02/11/2022 10:51:15 02/11/2022 11:10:33 [id number] Matthew Gordon MD [facility] [address] [facility] [address] [place] [address] 04/13/2022 10:48:34 04/13/2022 11:39:07 Dyspnea on exertion 59092280 R06.09 Will obtain echocardio gram to evaluate EF pulmonary pressure and diastolic function [id number] Sharmin Mckeon NP [facility] [address] [address] 04/20/2022 09:55:48 04/20/2022 10:53:06 Steatotic liver disease 106807305 K76.0 - CAM fibrosure S1-S2- did have an episode of binge drinking for several months which has resolved and she no longer drinks alcohol- will initiate hepatitis- A and B vaccine series today- follow-up in 6 months (2 months for #2 Hep B vaccinatio n) Anemia 345802931 D64.9 - Continue Iron supplement s- Last hgb done 04/13 was 9.2, recheck today- Will call with results CT of abdo men abnormal 6504046839 4573688 R93.5 - wall thickening and inflammati on of terminal ileum noted- consider colonoscop y in the future pending repeat abd ct scan- advised patient to call and schedule appointmen t after her abdominal CT scan for follow-up [id number] Joe Salmeron PA-C [facility] [address] [address] 04/28/2022 11:20:50 04/28/2022 11:57:40 Administration of viral vaccine 75630230 Z23 [id number] Joe Salmeron PA-C [facility] [address] [address] 07/27/2022 09:23:19 07/27/2022 10:36:04 Abdominal pain 50336996 R10.9 Loose stool 697339327 R1 9.5 Pain assoc iated with defecation 206466042 K62.89 Homogeneou s antinuclear antibody pattern 532656016 R76.8 Colitis 00013185 K52.9 Viral hepa titis A vaccination given 1793508430 9105 Z23 Viral hepa titis B vaccination given 5147308179 9103 Z23 Increased liver function 70912547 R94.5 Non-alcoho lic fatty liver 785680505 K76.0 [id number] Joe Salmeron PA-C [facility] [address] [address] 08/06/2022 09:59:21 08/06/2022 12:23:34 Abdominal pain 11057354 R10.9 Loose stool 923431979 R1 9.5 Pain assoc iated with defecation 927086030 K62.89 Homogeneou s antinuclear antibody pattern 151989967 R76.8 Colitis 84146169 K52.9 Increased liver function 16661224 R94.5 Non-alcoho lic fatty liver 409596243 K76.0 Irritable bowel syndrome with diarrhea 228696955 K58.0 [id number] Joe Salmeron PA-C [facility] [address] [address] 09/14/2022 10:31:22 09/14/2022 11:11:54 Abdominal pain 90437948 R10.9 Loose stool 678866320 R1 9.5 Pain assoc iated with defecation 121132118 K62.89 Chito s antinuclear antibody pattern 457940183 R76.8 Colitis 58853559 K52.9 Increased liver function 27161415 R94.5 Non-alcoho lic fatty liver 734974024 K76.0 Irritable bowel syndrome with diarrhea 079066895 K58.0 [id number] Joe Salmeron PA-C [facility] [address] [address] 03/16/2023 10:22:01 03/16/2023 11:06:50 Abdominal pain 11331085 R10.9 Loose stool 324138699 R1 9.5 Pain assoc iated with defecation 866900899 K62.89 Homogeneou s antinuclear antibody pattern 918405020 R76.8 Colitis 70786778 K52.9 Increased liver function 87286772 R94.5 Non-alcoho lic fatty liver 000441741 K76.0 Irritable bowel syndrome with diarrhea 122371522 K58.0 Chronic id iopathic constipation 16008263 K59.04 Health Concerns Section Related Observation LastModified by Organization Detai ls LastModified Time None Recorded Concern Status LastModified by Organization Details LastModified Time None Recorded Advance Directives Directive N: Payers Insurance Date Sequence Insurance Name Policy Number Policy Fall Covered Member ID Fall Member ID Guarantor Name 10/29/2023 1 [employer] [place] [id number] Simnoe Davila [id number] Simone Davila 10/29/2023 1 [employer] [place] Simone Davila [id number] Simone Davila Notes Date Note Type Note [...] enteritis. Joe Salmeron PA-C [address], [place], [address], [facility] & [place] 07/27/2022 10:54:07 08/06/2022 text/html PREVIOUS ( 3 [...] glasses. Joe Salmeron PA-C [address], [place], [address], [facility] & [place] 08/06/2022 13:43:16 09/14/2022 text/html PREVIOUS ( 3 HCarl Salmeron): Ms. [...] She was seen in the ED at [facility] last week due to acute abdominal pain and underwent CT with evidence of possible ovarian cyst vs. abscess. She states that she received antibiotics for possible sepsis. She is doing okay today. Her bowel habits are regulated better since the colonoscopy. She is schedule for follow-up with gynecology tomorrow Joe Salmeron PA-C [address], [place], [address], [place] [facility] [place] 09/14/2022 13:01:54 03/16/2023 text/html PREVIOUS ( 3 [...] She was seen in the ED at [facility] last week due to acute abdominal [...] She had a CT abd/pelvis performed at [facility] on 02/25/23 that showed a low-lying cecum and left adnexal cysts. She notes frequent abdominal bloating. Joe Salmeron PA-C [address], [place], [address], [facility] - [place] & [place] 03/16/2023 11:14:10 OBGyn Episode No OBEpisode recorded.
--- OUTSIDE RECORDS SUMMARY | 2024-10-08 14:58 | XMS_ITS | Referral Summary ---
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
== END 2024-10-08 23:59 | disposition home or self-care (01) ==
LOC: RAD 14:52
PROVIDERS: PCP Nurse Practitioner Family; Visit Provider Orthopaedic Surgery
DX: M54.50 Low back pain, unspecified (principal)
CPT/HCPCS: 72148

== ENCOUNTER 2025-01-02 08:56 | Outpatient (CLI) | payer MEDICAID, SELFPAY ==
--- NOTE | 2025-01-02 09:00 | XR_ITS ---
FINAL REPORT TECHNIQUE: Bone densitometry calculations of the lumbar spine and bilateral hips were obtained. CLINICAL HISTORY: routine screening hx of shot for endometriosis COMPARISON: None FINDINGS: Using L1-4, the bone mineral density of the spine is 1.147 g/cm2, corresponding to T-score of 0.9 and a Z score of 0.9. This is within the range of normal. Using the left hip, the bone mineral density of the femoral neck is 0.962 g/cm2, corresponding to a T-score of 0.2 and a Z-score of 0.2. This is within the range of normal. Using the right hip, the bone mineral density of the femoral neck is 0.983 g/cm?, corresponding to a T-score of 0.3 and a Z-score of 0.4. This is within the range of normal. NOTE: T-score: Standard deviation compared with peak bone mass of young adult mean. *Following the recommendations of the International Society of Bone densitometry, classification of hip BMD is based on the lower of two T-scores; total hip or femoral neck. IMPRESSION: 1. Bone mineral density of the lumbar spine within the range of normal. 2. Bone mineral density of the bilateral femoral necks within the range of normal. Reviewed, Interpreted and Dictated by Brianda Estrella MD Transcribed by Jenniefr Salmeron Authenticated and [facility]
--- OUTSIDE RECORDS SUMMARY | 2025-01-02 09:06 | XMS_ITS | Clinical Summary ---
Author Organization [employer] ([place], [place], [place], [place]) Address [address] [place] [address] Care Team Providers Care Drying Oven Attendant Name Role Phone Nilda Phipps APRN Primary [...] Date Kermit rded Speak language other than Citizen Of [place] at home Not on file 10/25/2023 Want help with school or training Not on file 10/25/2023 Substance Use Answer Date Recorded Used prescription meds for non-medical reasons N ot on file 10/25/2023 Used illegal drugs past 12 months Not on file 10/25/2023 Comments Unknown Sex and Gender Information Value Date Recorded Sex Assigned at Not on file Legal Sex Female 7:16 AM CHIP WASHER Gender Identity Not on file Sexual Orientation [...] HIV Screening 08/12/2006 Hepatitis C Screening 08/12/2009 Pap Smear 03/03/2024 03/03/2021 COVID-19 VACCINE ( - 2023- season) 2024 Influenza Vaccine (#1) 2024 DTAP/TDAP/TD VACCINES (5 - Td or Tdap) 08/12/2029 2019, 08/28/2018, 01/07/2017, Additional history exists Pneumococcal Vaccine: 0-49 Years Aged Out 04/19/2023 No longer eligible based on patient's age to complete this topic Insurance [facility] Care Teams Drying Oven Attendant Relationship Specialty Start Date End Date Nilda Phipps APRN [address] [address] PCP - General Nurse Practitioner 10/25/23
--- OUTSIDE RECORDS SUMMARY | 2025-01-02 09:06 | XMS_ITS | Referral Summary ---
Author Organization [employer] ([place], [place], [place], [place]) Address [address] [place] [address] Care Team Providers Care Product Mgr Name Role Phone Nilda Phipps APRN Primary [...] Date Kermit rded Speak language other than Azerbaijani at home Not on file 10/25/2023 Want help with school or training Not on file 10/25/2023 Substance Use Answer Date Recorded Used prescription meds for non-medical reasons N ot on file 10/25/2023 Used illegal drugs past 12 months Not on file 10/25/2023 Comments Unknown Sex and Gender Information Value Date Recorded Sex Assigned at Not on file Legal Sex Female 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
--- OUTSIDE RECORDS SUMMARY | 2025-01-02 09:06 | XMS_ITS | Clinical Summary ---
Author Organization [facility] Address [address] [place] [address] Care Team Providers Care Food Preparer Name Role Phone Sharmin Awad APRN Primary Care Provider [phone] Allergies Active Allergy Reactions Criticality Noted Date [...] MOUTH AFTER USE-- use with spacer 04/13/19 25 Active colestipol (Colestid) 1 g tablet TAKE [...] reaction to retinal in past - has bridge tender - we discussed that OCPs could help with both acne and facial - recommended that she sees GI and specialist to make sure there is no liver pathology before we start OCPs Cholecystitis, chronic 11/26/2021 Herpes simplex type II [...] return if persists Iron deficiency anemia 07/01/202207/08 Pelvic pain 05/05/2022 12/30/2024 Assessment & Plan (10/11/2022 10:32 AM EDT): [...] from Dr. Stevenson's the ED physician in [place] told him that the ultrasound was normal. [...] answers, or a second opinion with another FURNITURE SALES ASSOCIATE and surgeon could be beneficial to help [...] in 6 months or sooner if needed Vaginal cuff cellulitis 05/05/2022 03/2 06/2022 Postoperative follow-up 05/05/2022 03 Assessment & Plan (07/01/2022 10:36 AM EDT): [...] abscess. - I called radiology yesterday at [facility] to discuss drain placement - they [...] Mother Abdoulaye Welsh Mother's Sister 1 Marsha Torresbrey Mother's Sister 2 Abdoulaye Torresbrey Sister Social [...] often do you attend chur ch or mosque services? Never 10/15/2020 Do you belong to any clubs o r organizations such as orthodox groups, unions, fraternal or athletic groups, or [...] Recorded Patient Health Questionnaire-2 Score 0 05/16/2024 [facility] - Occupational [...] in a correction (including now)? No 10/15/2020 PHQ-2A Answer Date [...] 05/16/2024 2:02 PM EST Plan of Treatment Health Maintenance Due Date Last Done Comments [facility]-/Child/Adol SDOH Screenings 1990 VBT-JGCPX-30 Vaccine (#1) 08/12/1996 [facility]-Varicella Vaccines (1 of 2 - 13+ 2-dose series) 08/12/2004 [facility]- SDOH Screenings 08/12/2009 [facility]-Adult SDOH Screenings 08/12/2009 HPV Vaccines (1 - 3-dose SCDM series) 08/12/2018 [facility]-Influenza Vaccine (#1) 2024 [facility]-Depression Screening 05/16/2025 05/16/2024, 11/09 [facility]-DTaP,Tdap,and Td Vaccines (5 - Td or Tdap) 08/12/2029 2019, 08/28/2018, 01/07/2017, Additional history exists [facility]-Zoster Vaccines (1 of 2) 08/12/2041 [facility]-Cervical Cancer Screening Discontinued [facility]-HPV/Cotest Discontinued 03/03/2021, 03/03/2021 [facility]-Pap Smear Discontinued 03/03/2021 [facility]-Hepatitis A [...] 1/2 Differentiation (12/20/2023 12:07 PM EDT) Pathologist [facility] HIV 1 & 2 Antibody/Antigen Screen Non Reactive Non Reactive 12/20/2023 1:15 PM EDT [facility] Comment:Screening for HIV 1 & 2 antibodies, and P24 antigen is NONREACTIVE. No confirmatory testing is required. Blood Venous blood specimen / Unknown Venipuncture / Unknown 12/20/2023 12:07 PM EDT 12/20/2023 12:32 PM EDT Renetta Lopez MD LAB BLOOD ORDERABLES Final Resu lt Performing Organization Address [facility] de Phone Number [facility] [address] [place] [address] * Acute Hepatitis Panel (06/23/2023 10:22 AM EDT) [facility] Hepatitis B Surf Antigen Negative Negative 06/23/2023 12:49 PM EDT [facility] Hepatitis C Antibody Negative Negative 06/23/2023 12:49 PM EDT [facility] Hepatitis A Antibody IgM Negative Negative 06/23/2023 12:49 PM EDT [facility] Hepatitis B Core Antibody IgM Negative Negative 06/23/2023 12:49 PM EDT [facility] Blood Venous blood specimen / Unknown Venipuncture / Unknown 06/23/2023 10:22 AM EDT 06/23/2023 10:22 AM EDT Ginny Quan APRN LAB BLOOD ORDERABLES Final Result Performing Organization Address City/[facility] de Phone Number [facility] [address] [place] [address] * (ABNORMAL) Pap Smear (03/03/2021 2:47 PM EST) Pathologist [facility] Case Report Cytology Case: [id number] Authorizing Provider: Carter Conner MD Collected: 03/03/2021 1447 Ordering Location: Obstetrics & Gynecology Received: 03/04/2021 0837 First Screen: Faraz Wild, JAIRO Pathologist: Rose Porter MD Specimen: ThinPrep Pap Test, Liquid-Based Cervical/Vagina l, CERVICAL/VAGINA L 03/16/2021 10:[address] [facility] Interpretation ATYPICAL SQUAMOUS CELLS OF UNDETERMINED SIGNIFICANCE (ASCUS)(A) 03/16/2021 10:[address] [facility] at 1012 EST Specimen Adequacy Satisfactory for evaluation; endocervical/tr ansformation zone component present. Slide imaged by the ThinPrep Imaging system and selected 22 sagastume reviewed then full manual screening. 03/16/2021 10:[address] [facility] Cervical cytology is a screening [...] results is suggested (please call Microbiology at [phone] for results). 03/16/2021 10:[address] [facility] Menstrual Status Cyclic 03/16/20 10:[address] [facility] History of Hysterectomy Not Applicable 03/16/2021 10:[address] [facility] Contraceptive History Not Applicable 03/16/2021 10:[address] [facility] Last Menstrual Period 01/31/2021 03/16/2021 10:[address] [facility] Clinical Information N92.0 - Menorrhagia with regular cycle [ICD-10-CM] 03/16/2021 10:[address] [facility] Screening Type Routine Screen 2020 10:[address] [facility] High Risk? No 03/16/2021 10:[address] [facility] HPV Testing Requested? Request HPV Testing if ASCUS (Women 25 Years or Older) 03/16/2021 10:[address] [facility] Previous Cancer History No 03/16/2021 10:[address] [facility] Swab Vaginal and cervical cytologic material / Unknown Non-blood Collection / Unknown 03/03/2021 2:47 PM EST 03/04/2021 8:37 AM EST us Carter Conner MD LAB CYTOLOGY ORDERABLES Final [facility] [address] [place] [address] from Last 3 Months or Most Recently Relevant to Health Maintenance Insurance [facility] MEDICAID Care Teams Food Preparer Relationship Specialty Start Date End Date Sharmin Awad APRN [address] [place] [address] PCP - General Family Medicine 10/18/22
--- OUTSIDE RECORDS SUMMARY | 2025-01-02 09:06 | XMS_ITS | Encounter Summary ---
Author Organization Healthcare Address [address] [place] [address] Care Team Providers Care Biomed Tech Name Role Phone Marsha Mora APRN Primary Care Provider [phone] Sharmin Awad APRN Primary Care Provider [phone] Encounter Details Date Type Department Care Team ([facility] st Contact Info) Description 04/11/2022 Outside Procedure External Location [address] [place] [address] Provider, Nithin [place] Social History Tobacco Use Types Packs/Day Years [...] any clubs o r organizations such as mandaeism groups, unions, fraternal or athletic groups, or [...] Recorded Patient Health Questionnaire-2 Score 4 11/26/2021 [facility] - [...] place to sleep or slept in a intermediate (including now)? No 10/15/2020 Comments No Sex [...] as of this encounter Plan of Treatment Not on file documented as of this encounter Procedures Procedure Name Priority Date/Time Associated Diagnosis Comments CT ABDOMEN PELVIS W IV CONTRAST 04/11/2022 4:09 PM EST documented in this encounter Results * CT Abdomen Pelvis w IV Contrast (04/11/2022 4:09 PM EST) Anatomical Region Laterality Modality Abdomen, Pelvis Computed Tomogra phy 04/11/2022 4:09 PM EST Narrative 04/11/2022 6:50 [place] [address] Name: JAMES RAMOS Exam Date: 04/11/2022 : 1990 Age 31 Gender: F Physician: HERBERT HERNANDEZ Facility: [facility] Facility HSV: Outpatient Exam: CT ABD PEL [...] III 2022-04-11 18:37:58 Procedure Note Provider, Generic [place] - 04/11/2022 [address] [place] [address] Name: JAMES RAMOS Exam Date: 04/11/2022 : 1990 Age 31 Gender: F Physician: HERBERT HERNANDEZ Facility: [facility] Facility HSV: Outpatient Exam: CT ABD PEL [...] authenticated by ZULEYMA Gayle III 2022-04-11 18:37:58 Generic [place] Provider IMG CT PROCEDURES Fi nal Result [...] documented as of this encounter Care Teams Biomed Tech Relationship Specialty Start Date End Date Marsha Mora APRN [address] [place] [address] PCP - General 08/22/20 10/17/22 Sharmin Awad APRN [address] [place] [address] PCP - General Family Medicine 10/18/22 documented as of this encounter
--- OUTSIDE RECORDS SUMMARY | 2025-01-02 09:06 | XMS_ITS | Encounter Summary ---
Author Organization Healthcare Address [address] [place] [address] Care Team Providers Care Middleware Engineer Name Role Phone Marsha Mora APRN Primary Care Provider Sharmin Awad APRN Primary Care Provider [phone] Encounter Details Date Type Department Care Team ([facility] st Contact Info) Description 04/11/2022 Outside Procedure External Location [address] [place] [address] Provider, Nithin [place] Social History Tobacco Use Types Packs/Day Years [...] any clubs o r organizations such as shinto groups, unions, fraternal or athletic groups, or [...] Score 4 11/26/2021 [facility] - [...] PM EST Narrative 04/12/2022 8:53 [place] [address] Name: JAMES RAMOS Exam Date: 04/11/2022 : 1990 Age 31 Gender: F Physician: HERBERT HERNANDEZ Facility: [facility] Facility HSV: Outpatient Exam: CHEST PORTABLE PORTABLE [...] for referring JAMES RAMOS to [facility]. Legally authenticated by POPE JAMES Arias 2022-04-12 08:42:01 Procedure Note Provider, [facility] 04/12/2022 [place] [address] Name: JAMES RAMOS Exam Date: 04/11/2022 : 1990 Age 31 Gender: F Physician: HERBERT HERNANDEZ Facility: [facility] Facility HSV: Outpatient Exam: CHEST PORTABLE PORTABLE [...] for referring JAMES RAMOS to [facility]. Legally authenticated by POPE JAMES Arias 2022-04-12 08:42:01 [facility] Provider IMG XR PROCEDURES Fi nal Result [...] documented as of this encounter Care Teams Middleware Engineer Relationship Specialty Start Date End Date Marsha Mora APRN [address] [place] [id number] PCP - General 08/22/20 10/17/22 Sharmin Awad APRN [address] [place] [address] PCP - General Family Medicine 10/18/22 documented as of this encounter
--- OUTSIDE RECORDS SUMMARY | 2025-01-02 09:06 | XMS_ITS | Clinical Summary ---
[facility] Address [address] [place] [address] Care Team Providers Care Cut Tobacco Bulker Name Role Phone PhippsNilda SORAIDA Primary Care Provider [phone] Allergies Active Allergy Reactions Criticality Noted Date Comments Latex Hives,Rash High 05/05/2022 Medications DULoxetine (CYMBALTA) 30 MG capsule Take 30 mg by mouth daily . Active Multiple Vitamins-Mineral s (MULTIVITAL) tablet Take 1 tablet by mouth Daily. Active clomiPHENE (CLOMID) 50 MG tablet Take 1 tablet by mouth daily on cycle day 3-7 5 tablet 3 01/27/2016 Active Active Problems Problem Noted Date Diagnosed Date Annual physical exam 10/08/2015 Dysmenorrhea 10/08/2015 Family History Medical History Relation Name Comments Ovarian cancer Maternal Aunt Relation Name Status Comments Maternal Aunt Social History Tobacco Use Types Packs/Day Years Used Date Smoking Tobacco: Some Days Cigarettes Alcohol Use Standard Drinks/Week Comments No 0 (1 standard drink = 0.6 oz pur e alcohol) Abuse Screen Answer Date Recorded Feels Unsafe at Home or Work/School no 10/25/2023 Feels Threatened by Someone no 10/09 Does Anyone Try to Keep You From Having Contact with Others or Doing Things Outside Your Home? no 10/25/2023 Physical Signs of Abuse Present no 10/25/2023 Housing Stability Answer Date Recorded Current Living Arrangements Not on file 10/2022 Potentially Unsafe Housing Conditions Not on laya e 01/15/2023 Family and Community Support Answer Dick e Recorded Help with Day-to-Day Activities Not on file 01/15/2023 Lonely or Isolated Not on file 01/15/2023 Employment Answer Date Recorded Do you want help finding or keeping work or a juju b? Not on file 01/15/2023 Disabilities Answer Date Recorded Concentrating, Remembering, or Making Decisions Difficulty Not on file 01/15/2023 Doing Errands Independently Difficulty Not on fi le 01/15/2023 Education Answer Date Recorded Help with school or training? Not on file Preferred Language Not on file 01/15/2023 Comments No Sex and Gender Information Value Date Recorded Sex Assigned at Not on file Legal Sex Female 8:26 PM EDT Gender Identity Not on file Sexual Orientation Not on file Last Filed Vital Signs Vital Sign Reading Time Taken Comments Blood Pressure 101/68 10/25/2023 4:30 PM EDT Pulse 98 10/25/2023 4:30 PM EDT Temperature 36.8 C (98.3 F) 10/25/2023 12:42 PM EDT Respiratory Rate 18 10/25/2023 12:42 PM EDT Oxygen Saturation 100% 10/25/2023 4:30 PM EDT Inhaled Oxygen Concentration - - Weight 63.5 kg (140 lb) 10/25/2023 12:42 PM EDT Height 157.5 cm (5' 2 ) 10/25/2023 12:42 PM EDT Body Mass Index 25.61 10/25/2023 12:42 PM EDT Plan of Treatment Health Maintenance Due Date Last Done Comments Annual Gynecologic Pelvic and Breast Exam 1990 ANNUAL PHYSICAL 01/26/2016 INFLUENZA VACCINE 11/09/2024 TDAP/TD VACCINES (5 - Td or Tdap) 08/12/2029 2019, 08/28/2018, 01/07/2017, Additional history exists Pneumococcal Vaccine 0-49 Aged Out 04/19/2023 No longer eligible based on patient's age to complete this topic HEPATITIS C SCREENING Completed 06/23/2023 , 11/23/2022, 12/15/2021 Insurance [employer] Care Teams Cut Tobacco Bulker Relationship Specialty Start Date End Date Nilda Phipps APRN [address] [place] [address] PCP - General Internal Medicine 10/25/23
--- OUTSIDE RECORDS SUMMARY | 2025-01-02 09:06 | XMS_ITS | Encounter Summary ---
Author Organization Healthcare Address [address] [place] [address] Care Team Providers Care Regional Airline Pilot Name Role Phone Marsha Mora SWAMPER Primary Care Provider [phone] Sharmin Awad APRN Primary Care Provider [phone] Encounter Details Date Type Department Care Team ([facility] Contact Info) Description 01/20/2022 Outside Procedure External Location [address] [place] [address] Sharmin Lambert, SORAIDA [address] [place] [address] Social History Tobacco Use Types [...] any clubs o r organizations such as judaism groups, unions, fraternal or athletic groups, or [...] 11/26/2021 [facility] - [facility] Questionnaire Answer [...] AM EDT Narrative 01/20/2022 11:29 AM EDT [address] [place] [address] Name: JAMES RAMOS Exam Date: 01/20/2022 : 1990 Age 31 Gender: F Physician: SHARMIN LAMBERT Facility: [facility] Facility HSV: Outpatient Exam: LIVER ULTRASOUND [...] Thank you for referring JAMES RAMOS to [facility]. Legally authenticated by CELINA ANAND 2022-01-20 11:18:05 Procedure Note Provider, Generic [place] - 01/20/2022 [place] [address] Name: JAMES RAMOS Exam Date: 01/20/2022 : 1990 Age 31 Gender: F Physician: SHARMIN LAMBERT Facility: [facility] Facility HSV: Outpatient Exam: LIVER ULTRASOUND [...] Thank you for referring JAMES RAMOS to [facility]. Legally authenticated by CELINA ANAND [...] documented as of this encounter Care Teams Regional Airline Pilot Relationship Specialty Start Date End Date Marsha Mora APRN [address] [place] [id number] PCP - General 08/22/20 10/17/22 Sharmin Awad APRN [address] [place] [phone] PCP - General Family Medicine 10/18/22 documented as of this encounter
--- OUTSIDE RECORDS SUMMARY | 2025-01-02 09:06 | XMS_ITS | Encounter Summary ---
Author Organization Healthcare Address [id number] Care Team Providers Care Concrete Wall Grinder Operator Name Role Phone Sharmin Awad APRN Primary Care Provider [phone] Encounter Details Date Type Department Care Team (Late st Contact Info) Description 08/29/2023 Orders Only External Location [address] [place] [address] Adriana Mathews [address] [id number] Social History Tobacco Use Types Packs/Day Years [...] any clubs o r organizations such as uatsdin groups, unions, fraternal or athletic groups, or [...] Recorded Patient Health Questionnaire-2 Score 0 11/23/2022 [facility] Health - Occupational Stress [...] place to sleep or slept in a prison (including now)? No 10/15/2020 PHQ-2A Answer Date [...] Resonan ce 08/29/2023 8:34 AM EDT Adriana RICKETTS MRI PROCEDURES Final Result documented in this [...] documented as of this encounter Care Teams Concrete Wall Grinder Operator Relationship Specialty Start Date End Date Sharmin Awad, SORAIDA [address] [place] [address] PCP - General Family Medicine 10/18/22 documented as of this encounter
--- OUTSIDE RECORDS SUMMARY | 2025-01-02 09:07 | XMS_ITS | Encounter Summary ---
Author Organization Healthcare Address [address] [place] [address] Care Team Providers Care Show Host Name Role Phone Marsha Mora APRN Primary Care Provider [phone] Sharmin Awad APRN Primary Care Provider [phone] Encounter Details Date Type Department Care Team ([facility] st Contact Info) Description 05/07/2022 Outside Procedure External Location [address] [place] [address] Provider, Nithin [place] Social History Tobacco Use Types Packs/Day Years [...] often do you attend chur ch or confucianist services? Never 10/15/2020 Do you belong to [...] Recorded Patient Health Questionnaire-2 Score 4 11/26/2021 [facility] - [...] PM EST Narrative 05/07/2022 2:55 [place] [address] Name: JAMES RAMOS Exam Date: 05/07/2022 : 1990 Age 31 Gender: F Physician: JUANCARLOS SALDAÑA Facility: [facility] Facility HSV: Outpatient Exam: CT [...] Thank you for referring JAMES RAMOS to [facility]. Legally authenticated by JESS CABALLERO 2022-05-07 14:43:47 Procedure Note Provider, Generic [place] - 05/07/[address] [address] Name: JAMES RAMOS Exam Date: 05/07/2022 : 1990 Age 31 Gender: F Physician: JUANCARLOS SALDAÑA Facility: [facility] Facility HSV: Outpatient Exam: CT [...] Thank you for referring JAMES RAMOS to [facility]. Legally authenticated by JESS CABALLERO 2022-05-07 14:43:47 Generic [place] Provider IMG CT PROCEDURES Fi nal Result [...] documented as of this encounter Care Teams Show Host Relationship Specialty Start Date End Date Marsha Mora APRN [facility] [place] [address] PCP - General 08/22/20 10/17/22 Sharmin Awad APRN [address] [place] [address] PCP - General Family Medicine 10/18/22 documented as of this encounter
--- OUTSIDE RECORDS SUMMARY | 2025-01-02 09:07 | XMS_ITS | Encounter Summary ---
Author Organization Healthcare Address [address] [place] [address] Care Team Providers Care Artillery Officer Name Role Phone Meadow, Marsha Nalini QUIGLEY Primary Care Provider [phone] Sharmin Awad APRN Primary Care Provider [phone] Encounter Details Date Type Department Care Team ([facility] st Contact Info) Description 04/26/2022 Outside Procedure External Location [address] [place] [address] Carter Conner MD [address] [place] [address] Social History Tobacco Use Types [...] Recorded Patient Health Questionnaire-2 Score 4 11/26/2021 [facility]ational Stress Questionnaire Answer Date [...] PM EST Narrative 04/26/2022 2:56 [place] [address] Name: JAMES RAMOS Exam Date: 04/26/2022 : 1990 Age 31 Gender: F Physician: CARTER CONNER Facility: [facility] Facility HSV: Outpatient Exam: CT [...] 04/26/2022 2:45 PM Electronically signed by: JAMES OGSS 04/26/2022 Thank you for referring JAMES RAMOS to [facility]. Legally authenticated by POPE JAMES Arias 2022-04-26 14:45:02 Procedure Note Provider, [facility] - 04/26/2022 [facility] [address] [place] [address] Name: JAMES RAMOS Exam Date: 04/26/2022 : 1990 Age 31 Gender: F Physician: CARTER CONNER Facility: [facility] Facility HSV: Outpatient Exam: CT [...] Thank you for referring JAMES RAMOS to [facility]. Legally authenticated by POPE JAMES Arias [...] documented as of this encounter Care Teams Artillery Officer Relationship Specialty Start Date End Date Marsha Mora APRN [address] [place] [phone] PCP - General 08/22/20 10/17/22 Sharmin Awad APRN [address] [place] [phone] PCP - General Family Medicine 10/18/22 documented as of this encounter
--- OUTSIDE RECORDS SUMMARY | 2025-01-02 09:07 | XMS_ITS | Encounter Summary ---
Author Organization Healthcare Address [address] [place] [address] Care Team Providers Care Pharmacy Coordinator Name Role Phone [place] ParkMarsha APRN Primary Care Provider [phone] Sharmin Awad APRN Primary Care Provider [phone] Encounter Details Date Type Department Care Team ([facility] st Contact Info) Description 08/09/2022 Outside Procedure External Location [address] [place] [address] Adarsh Gan MD [address] [place] [address] Social History Tobacco Use Types [...] any clubs o r organizations such as samaritan groups, unions, fraternal or athletic groups, or [...] Patient Health Questionnaire-2 Score 0 07/29/2022 [facility] Questionnaire Answer Date [...] PM EDT Narrative 08/09/2022 3:00 [place] [address] Name: JAMES RAMOS Exam Date: 08/09/2022 : 1990 Age 31 Gender: F Physician: ADARSH GAN Facility: [facility] Facility HSV: Outpatient Exam: [...] [facility]. Legally authenticated by JESS CABALLERO 2022-08-09 14:49:49 Procedure Note Provider, Generic [place] - 08/09/[address] [address] Name: JAMES RAMOS Exam Date: 08/09/2022 : 1990 Age 31 Gender: F Physician: ADARSH GAN Facility: [facility] Facility HSV: Outpatient Exam: [...] [facility]. Legally authenticated by JESS CABALLERO 2022-08-09 14:49:49 us Aadrsh Gan MD IMG CT PROCEDURES Final Result [...] documented as of this encounter Care Teams Pharmacy Coordinator Relationship Specialty Start Date End Date Marsha Mora APRN [address] [place] [address] PCP - General 08/22/20 10/17/22 Sharmin Awad APRN [address] [place] [phone] PCP - General Family Medicine 10/18/22 documented as of this encounter
== END 2025-01-02 23:59 | disposition home or self-care (01) ==
LOC: RAD 08:57
PROVIDERS: PCP Nurse Practitioner Family; Visit Provider Obstetrics & Gynecology
DX: Z13.820 Encounter for screening for osteoporosis (principal); Z79.899 Other long term (current) drug therapy
CPT/HCPCS: 77080

== ENCOUNTER 2025-01-22 09:32 | Outpatient (CLI) | payer MEDICAID, SELFPAY ==
--- NOTE | 2025-01-22 09:35 | XR_ITS ---
FINAL REPORT CLINICAL HISTORY: left wrist injury FINDINGS: LEFT WRIST Four views were obtained. There is a lucency in the waist of the scaphoid best seen on the scaphoid view concerning for a fracture. IMPRESSION: Possible scaphoid fracture. If indicated, consider MRI. Reviewed, Interpreted and Dictated by Brianda Estrella MD Transcribed by Iza Mackay Authenticated and [facility]
--- OUTSIDE RECORDS SUMMARY | 2025-01-22 09:42 | XMS_ITS | Encounter Summary ---
Author Organization Healthcare Address [address] [place] [address] Care Team Providers Care Production Planning Manager Name Role Phone Sharmin Awad Hugo QUIGLEY Primary Care Provider [phone] Encounter Details Date Type Department Care Team (Late st Contact Info) Description 01/02/2025 Orders Only External Location [address] [place] [address] Allie [place], DO [address] [place] [address] Social History Tobacco Use Types Packs/Day Years Used Date Smoking Tobacco: Former Cigarettes 1 10.1 2 010 - 05/13/2019 Passive Smoke Exposure: Past Smokeless Tobacco: Never Alcohol Use Standard Drinks/Week [...] any clubs o r organizations such as islam groups, unions, fraternal or athletic groups, or [...] Recorded Patient Health Questionnaire-2 Score 0 05/16/2024 [facility] - Occupational Stress Questionnaire Answer Date [...] Upcoming Encounters Date Type Department Care Team ([facility] st Contact Info) Description 02/05/2025 11:40 AM EDT Office Visit Medical Office Building Surgery Spine & Joint [address] [facility], [address] [place] [address] Britany Núñez PA [address] [place] [address] documented as of this encounter Procedures Procedure Name Priority Date/Time Associated Diagnosis Comments XR MSK OUTSIDE IMAGES 01/02/2025 9:34 AM EDT documented in this encounter Results * XR MSK OUTSIDE IMAGES (01/02/2025 9:34 AM EDT) Anatomical Region Laterality Modality Radiographic Kamini ging 01/02/2025 9:34 AM EDT Allie Medina DO IMG XR PROCEDURES Final Result documented in this encounter Visit Diagnoses Not on filedocumented in this encounter Additional Health Concerns Assessment Noted Time PHQ-9 Depression Total Score: 14 11/26/ 022 9:46 AM EDT A fall risk assessment has been complete d for the patient 05/16/2024 2:04 PM EST A Body Mass Index follow-up plan has been documented for the patient 05/16/2024 3:30 PM EST documented as of this encounter Care Teams Production Planning Manager Relationship Specialty Start Date End Date Sharmin Awad APRN [address] [place] [address] PCP - General Family Medicine 10/18/22 documented as of this encounter
--- OUTSIDE RECORDS SUMMARY | 2025-01-22 09:42 | XMS_ITS | Encounter Summary ---
Author Organization Healthcare Address [address] [place] [address] Care Team Providers Care Pelletising Extruder Operator Name Role Phone RiteshSharmin Hugo QUIGLEY Primary Care Provider [phone] Encounter Details Date Type Department Care Team ([facility] Contact Info) Description 09/20/2024 Orders Only External Location [address] [place] [address] Provider, External Social History Tobacco Use Types Packs/Day Years [...] often do you attend chur ch or pentecostal services? Never 10/15/2020 Do you belong to any clubs o r organizations such as episcopal groups, unions, fraternal or athletic groups, or [...] Recorded Patient Health Questionnaire-2 Score 0 05/16/2024 [facility] Occupat ional Health - [...] Care Team (Late st Contact Info) Description 02/05/2025 11:40 AM EDT Office Visit Medical Office Building Surgery Spine & Joint [address] [facility], [address] [place] [address] Britany Núñez PA [address] [facility] [address] [place] [address] documented as of this encounter Procedures Procedure Name Priority Date/Time Associated Diagnosis Comments XR OUTSIDE IMAGES 09/20/2024 8:37 AM EDT documented in this encounter Results * XR OUTSIDE IMAGES (09/20/2024 8:37 AM EDT) Anatomical Region Laterality Modality Radiographic Kamini ging 09/20/2024 8:37 AM EDT us External Provider IMG XR PROCEDURES Final Result documented in [...] documented as of this encounter Care Teams Pelletising Extruder Operator Relationship Specialty Start Date End Date Sharmin Awad APRN [address] [place] [address] PCP - General Family Medicine 10/18/22 documented as of this encounter
--- OUTSIDE RECORDS SUMMARY | 2025-01-22 09:42 | XMS_ITS | Clinical Summary ---
Author Organization [employer] ([place], [place], [place], [place]) Address [address] [place] [address] Care Team Providers Care Test Lab Technician Name Role Phone Nilda Phipps APRN Primary [...] Date Kermit rded Speak language other than Albanian at home Not on file 10/25/2023 Want help with school or training Not on file 10/25/2023 Substance Use Answer Date Recorded Used prescription meds for non-medical reasons N ot on file 10/25/2023 Used illegal drugs past 12 months Not on file 10/25/2023 Comments Unknown Sex and Gender Information Value Date Recorded Sex Assigned at Not on file Legal Sex Female 7:16 AM BATTERY RECHARGER Gender Identity Not on file Sexual Orientation [...] patient's age to complete this topic Insurance [facility] Care Teams Test Lab Technician Relationship Specialty Start Date End Date Nilda Phipps APRN [address] [address] PCP - General Nurse Practitioner 10/25/23
--- OUTSIDE RECORDS SUMMARY | 2025-01-22 09:42 | XMS_ITS | Referral Summary ---
Author Organization [employer] ([place], [place], [place], [place]) Address [address] [place] [address] Care Team Providers Care Acetylene Cutter Name Role Phone Nilda Phipps APRN Primary [...] Date Kermit rded Speak language other than Latvian at home Not on file 10/25/2023 Want help with school or training Not on file 10/25/2023 Substance Use Answer Date Recorded Used prescription meds for non-medical reasons N ot on file 10/25/2023 Used illegal drugs past 12 months Not on file 10/25/2023 Comments Unknown Sex and Gender Information Value Date Recorded Sex Assigned at Not on file Legal Sex Female 7:16 AM MAINTENANCE SUPERINTENDENT Gender Identity Not on file Sexual Orientation [...] Plan of Treatment Not on file Insurance [facility] Care Teams Acetylene Cutter Relationship Specialty Start Date End Date Nilda Phipps, TECHNICAL SUPPORT ASSISTANT [address] [place] [address] PCP - General Nurse Practitioner 10/25/23
--- OUTSIDE RECORDS SUMMARY | 2025-01-22 09:42 | XMS_ITS | Encounter Summary ---
Author Organization Healthcare Address [address] [place] [address] Care Team Providers Care Hog Grader Name Role Phone AbbyMarsha english Nalini QUIGLEY Primary Care Provider [phone] Sharmin Awad APRN Primary Care Provider [phone] Encounter Details Date Type Department Care Team (Late st Contact Info) Description 01/20/2022 Outside Procedure External Location [address] [place] [address] Sharmin Lambert, ICT QUALITY ASSURANCE ENGINEER [address] [place] [address] Social History Tobacco Use Types [...] 10/15/2020 How often do you attend chur or restoration services? Never 10/15/2020 Do you belong to any clubs o r organizations such as restorationism groups, unions, fraternal or athletic groups, or [...] Recorded Patient Health Questionnaire-2 Score 4 11/26/2021 [facility] - Occupational Stress Questionnaire Answer Date [...] Upcoming Encounters Date Type Department Care Team ([facility] Contact Info) Description 02/05/2025 11:40 AM EDT Office Visit Medical Office Building Surgery Spine & Joint [address] [facility], [address] [place] [address] Britany Núñez PA [address] [facility] [address] [place] [address] documented as of this encounter Procedures Procedure Name Priority Date/Time Associated Diagnosis Comments US LIVER SCREEN 01/20/2022 9:56 AM EDT documented in this encounter Results * US Liver Screen (01/20/2022 9:56 AM EDT) Anatomical Region Laterality Modality Abdomen, Liver Ultrasound 01/20/2022 9:56 AM EDT Narrative 01/20/2022 11:29 [place] [address] Name: JAMES RAMOS Exam Date: 01/20/2022 : 1990 Age 31 Gender: F Physician: SHARMIN LAMBERT Facility: [facility] Facility HSV: Outpatient Exam: LIVER ULTRASOUND [...] [facility]. Legally authenticated by CELINA ANAND 2022-01-20 11:18:05 Procedure Note Provider, Generic [place] - 01/20/2022 [place] [address] Name: JAMES RAMOS Exam Date: 01/20/2022 : 1990 Age 31 Gender: F Physician: SHARMIN LAMBERT Facility: [facility] Facility HSV: Outpatient Exam: LIVER ULTRASOUND [...] [facility]. Legally authenticated by CELINA ANAND 2022-01-20 [...] documented as of this encounter Care Teams Hog Grader Relationship Specialty Start Date End Date Marsha Mora APRN [address] [place] [address] PCP - General 08/22/20 10/17/22 Sharmin Awad APRN [address] [place] [address] PCP - General Family Medicine 10/18/22 documented as of this encounter
--- OUTSIDE RECORDS SUMMARY | 2025-01-22 09:42 | XMS_ITS | Encounter Summary ---
Author Organization Healthcare Address [address] [place] [address] Care Team Providers Care Chancellor Name Role Phone Marsha Mora APRN Primary Care Provider [phone] Sharmin Awad APRN Primary Care Provider [phone] Encounter Details Date Type Department Care Team (Late st Contact Info) Description 04/11/2022 Outside Procedure External Location [address] [place] [address] Provider, Nithin Victor Social History Tobacco Use Types Packs/Day Years [...] often do you attend chur ch or catholic services? Never 10/15/2020 Do you belong to any clubs o r organizations such as hinduism groups, unions, fraternal or athletic groups, or [...] Recorded Patient Health Questionnaire-2 Score 4 11/26/2021 [facility]at ional Health - Occupational [...] Building Surgery Spine & Joint [address], [address] [place] [address] Britany Núñez PA [address] [place] [address] documented as of this encounter Procedures Procedure Name Priority Date/Time Associated Diagnosis Comments XR CHEST 1 VIEW 04/11/2022 4:09 PM EST documented in this encounter Results * XR Chest 1 View (04/11/2022 4:09 PM EST) Anatomical Region Laterality Modality Chest Digital Radiogra phy 04/11/2022 4:09 PM EST Narrative 04/12/2022 8:53 [place] [address] Name: JAMES RAMOS Exam Date: 04/11/2022 : 1990 Age 31 Gender: F Physician: HERBERT HERNANDEZ Facility: [facility] Facility HSV: Outpatient Exam: CHEST PORTABLE PORTABLE [...] to [facility]. Legally authenticated by POPE JAMES Arias 2022-04-12 08:42:01 Procedure Note Provider, [facility] - 04/12/2022 [place] [address] Name: JAMES RAMOS Exam Date: 04/11/2022 : 1990 Age 31 Gender: F Physician: HERBERT HERNANDEZ Facility: [facility] Facility HSV: Outpatient Exam: CHEST PORTABLE PORTABLE [...] to [facility]. Legally authenticated by POPE JAMES Arias 2022-04-12 08:42:01 us Generic [place] Provider IMG XR PROCEDURES Fi nal Result [...] documented as of this encounter Care Teams Chancellor Relationship Specialty Start Date End Date Marsha Mora APRN [address] [place] [address] PCP - General 08/22/20 10/17/22 Sharmin Awad, SORAIDA [address] [place] [address] PCP - General Family Medicine 10/18/22 documented as of this encounter
--- OUTSIDE RECORDS SUMMARY | 2025-01-22 09:42 | XMS_ITS | Encounter Summary ---
Author Organization Healthcare Address [address] [place] [id number] Care Team Providers Care Fall Internship Name Role Phone Sharmin Awad Hugo QUIGLEY Primary Care Provider [phone] Encounter Details Date Type Department Care Team (Late st Contact Info) Description 08/29/2023 Orders Only External Location [address] [place] [address] Adriana Mathews [address] [place] [id number] Social History Tobacco Use Types Packs/Day Years [...] often do you attend chur ch or gnosticist services? Never 10/15/2020 Do you belong to any clubs o r organizations such as congregation groups, unions, fraternal or athletic groups, or [...] Recorded Patient Health Questionnaire-2 Score 0 11/23/2022 [facility] - Occupational Stress Questionnaire Answer Date Recorded [...] place to sleep or slept in a snf (including now)? No 10/15/2020 PHQ-2A Answer Date [...] Building Surgery Spine & Joint [address] [facility], [address] [place] [address] Britany Núñez PA [address] [place] [address] documented as of this encounter Procedures Procedure Name Priority Date/Time Associated Diagnosis Comments MR OUTSIDE IMAGES 08/29/2023 8:34 AM EDT documented in this encounter Results * MR transfer of outside films (08/29/2023 8:34 AM EDT) Anatomical Region Laterality Modality Magnetic Resonan ce 08/29/2023 8:34 AM EDT Adriana Mathews [facility] MRI PROCEDURES Final Result documented in this [...] documented as of this encounter Care Teams Fall Internship Relationship Specialty Start Date End Date Sharmin Awad APRN [address] [place] [address] PCP - General Family Medicine 10/18/22 documented as of this encounter
--- OUTSIDE RECORDS SUMMARY | 2025-01-22 09:42 | XMS_ITS | Encounter Summary ---
Author Organization Healthcare Address [address] [place] [address] Care Team Providers Care Stopper Maker Name Role Phone Marsha Mora APRN Primary Care Provider [phone] Sharmin Awad APRN Primary Care Provider [phone] Encounter Details Date Type Department Care Team (Late st Contact Info) Description 04/11/2022 Outside Procedure External Location [address] [place] [address] Provider, Nithin Victor Social History Tobacco Use [...] often do you attend chur ch or scientologist services? Never 10/15/2020 Do you belong to any clubs o r organizations such as presybeterian groups, unions, fraternal or athletic groups, or [...] Recorded Patient Health Questionnaire-2 Score 4 11/26/2021 [facility] of Occupat ional Health - Occupational [...] in a longterm (including now)? No 10/15/2020 Comments No Sex [...] Joint [address], [address] [place] [address] Britany Núñez PA [address] [place] [address] documented as of this encounter Procedures Procedure Name Priority Date/Time Associated Diagnosis Comments CT ABDOMEN PELVIS W IV CONTRAST 04/11/2022 4:09 PM EST documented in this encounter Results * CT Abdomen Pelvis w IV Contrast (04/11/2022 4:09 PM EST) Anatomical Region Laterality Modality Abdomen, Pelvis Computed Tomogra phy 04/11/2022 4:09 PM EST Narrative 04/11/2022 6:50 PM EST [address] [place] [address] Name: JAMES RAMOS Exam Date: 04/11/2022 : 1990 Age 31 Gender: F Physician: HERBERT HERNANDEZ Facility: [facility] Facility HSV: Outpatient Exam: CT ABD [...] you for referring JAMES RAMOS to [facility]. Legally authenticated by ZULEYMA Gayle III 2022-04-11 18:37:58 Procedure Note Provider, Generic [place] - 04/11/2022 [place] [id number] Name: JAMES RAMOS Exam Date: 04/11/2022 : 1990 Age 31 Gender: F Physician: HERBERT HERNANDEZ Facility: [facility] Facility HSV: Outpatient Exam: CT ABD [...] you for referring JAMES RAMOS to [facility]. Legally authenticated by ZULEYMA Gayle III 2022-04-11 18:37:58 Generic [place] Provider IMG CT PROCEDURES Fi nal Result [...] documented as of this encounter Care Teams Stopper Maker Relationship Specialty Start Date End Date Marsha Mora APRN [address] [place] [address] PCP - General 08/22/20 10/17/22 Sharmin Awad APRN [address] [place] [phone] PCP - General Family Medicine 10/18/22 documented as of this encounter
--- OUTSIDE RECORDS SUMMARY | 2025-01-22 09:42 | XMS_ITS | Encounter Summary ---
Author Organization [facility] Address [address] [place] [address] Care Team Providers Care Cinder Pit Crane Operator Name Role Phone Sharmin Awad Hugo QUIGLEY Primary Care Provider [phone] Encounter Details Date Type Department Care Team ([facility] Contact Info) Description 01/08/2025 Telephone Medical Office Building Surgery Spine & Joint [address] [facility], [address] [place] [address] Britany Núñez PA [address] [place] [address] Social History Tobacco Use Types Packs/Day Years [...] How often do you attend chur or yazidi services? Never 10/15/2020 Do you belong to any clubs o r organizations such as druze groups, unions, fraternal or athletic groups, or [...] Recorded Patient Health Questionnaire-2 Score 0 05/16/2024 [facility] - Occupational Stress Questionnaire Answer Date [...] in a fpc (including now)? No 10/15/2020 PHQ-2A Answer Date Recorded Patient Health Questionnaire-2 Score 0 11/23/2022 Comments No Sex and Gender Information Value Date Recorded Sex Assigned at Female 02/04/2022 8:54 AM EDT Legal Sex Female 6:31 PM EDT Gender Identity Female 02/04/2022 8:54 AM EDT Sexual Orientation Straight 02/04/2022 8: 54 AM EDT documented as of this encounter Miscellaneous Notes * Telephone Encounter - [place] Tucker - 01/08/2025 3:27 PM EDT PT RETURNED CALL ACCEPTED 02/05/25 [id number] ALBERTO THOMAS documented in this encounter Plan of Treatment Upcoming Encounters Date Type Department Care Team (Late st Contact Info) Description 02/05/2025 11:40 AM EDT Office Visit Medical Office Building Surgery Spine & Joint [address], [address] [place] [address] Britany Núñez PA [address] [facility] [address] [place] [address] documented as of this encounter Visit Diagnoses Not on filedocumented in this encounter Additional Health Concerns Assessment Noted Time PHQ-9 Depression Total Score: 14 022 9:46 AM EDT A fall risk assessment has been complete d for the patient 05/16/2024 2:04 PM EST A Body Mass Index follow-up plan has been documented for the patient 05/16/2024 3:30 PM EST documented as of this encounter Care Teams Cinder Pit Crane Operator Relationship Specialty Start Date End Date Sharmin Awad APRN [address] [place] [address] PCP - General Family Medicine 10/18/22 documented as of this encounter
--- OUTSIDE RECORDS SUMMARY | 2025-01-22 09:42 | XMS_ITS | Encounter Summary ---
Author Organization Healthcare Address [address] [place] [address] Care Team Providers Care Food Court Team Member Name Role Phone RiteshSharmin Hugo QUIGLEY Primary Care Provider [phone] Encounter Details Date Type Department Care Team ([facility] Contact Info) Description 10/08/2024 Orders Only External Location [address] [place] [address] Provider, External Social History Tobacco Use Types [...] any clubs o r organizations such as tenriism groups, unions, fraternal or athletic groups, or [...] Recorded Patient Health Questionnaire-2 Score 0 05/16/2024 [facility] of Occupat ional [...] Building Surgery Spine & Joint [address] [facility], [address] [place] [address] Britany Núñez PA [address] [facility] [address] [place] [address] documented as of this encounter Procedures Procedure Name Priority Date/Time Associated Diagnosis Comments MR NEURO OUTSIDE IMAGES 10/08/2024 2:58 PM EDT documented in this encounter Results * MR NEURO OUTSIDE IMAGES (10/08/2024 2:58 PM EDT) Anatomical Region Laterality Modality Magnetic Resonan ce 10/08/2024 2:58 PM EDT us External Provider IMG MRI PROCEDURES Final Resul t documented in this encounter Visit Diagnoses Not [...] documented as of this encounter Care Teams Food Court Team Member Relationship Specialty Start Date End Date Sharmin Awad APRN [address] [place] [address] PCP - General Family Medicine 10/18/22 documented as of this encounter
--- OUTSIDE RECORDS SUMMARY | 2025-01-22 09:42 | XMS_ITS | Clinical Summary ---
Author Organization [facility] Address [address] [place] [address] Care Team Providers Care Furniture Designer Name Role Phone Sharmin Awad Hugo QUIGLEY Primary Care Provider [phone] Allergies Active Allergy Reactions Criticality Noted Date [...] reaction to retinal in past - has occupational health and safety officer - we discussed that OCPs could help [...] from Dr. Stevenson's the ED physician in [place] told him that the ultrasound was normal. [...] answers, or a second opinion with another FIRER RETORT and surgeon could be beneficial to help [...] abscess. - I called radiology yesterday at [facility] to discuss drain placement - they are [...] 04/28/2022 07/01/2022 Postprocedural retroperitoneal abscess 04/28/2022 07/01/2022 Encounters Date Type Department Care Team Description 01/08/2025 Telephone Medical Office Building Surgery Spine & Joint [address], [address] [place] [address] Britany Núñez PA 01/08/2025 Telephone Medical Office Building Surgery Spine & Joint [address], [address] [place] [address] Britany Núñez PA 01/02/2025 Orders Only External Location [address] [place] [phone] Allie Medina DO from Last 3 Months Immunizations Immunization Administration Dates Next Due Hep A, Adult 07/27/2022,02/04/2022 Hep B, Adolescent or Pediatric 01/23/2004,2003 Hep B, adult 07/27/2022,04/28/2022,02/11/2022 Pneumococcal 20-hoda Conj Vaccine 04/19/2023 TD (adult), 2 Lf tetanus tox oid, preservative free, adsorbed 12/10/2003 Tdap 2019,08/28/2018,01/07/2017 Family History Medical History Relation Name Comments Autoimmune disease Father William Davila Cancer Mother Abdoulaye Welsh Conversions - Other Mother Abdoulaye Smith bruno history unknown Melanoma Mother Abdoulaye Welsh Recurrent Infections Mother Abdoulaye Welsh Cancer Mother's Sister 1 Marsha Welsh Cancer Mother's Sister 2 Abdoulaye Welsh John's thyroiditis Sister Relation Name Status Comments Father William Davila Mother Abdoulaye Torresbrey Mother's Sister 1 Marsha Torresbrey Mother's Sister 2 Abdoulaye Jones Blaise Sister Social History Tobacco Use Types Packs/Day [...] How often do you attend chur or orthodoxy services? Never 10/15/2020 Do you belong to any clubs o r organizations such as orthodoxy groups, unions, fraternal or athletic groups, or [...] Recorded Patient Health Questionnaire-2 Score 0 05/16/2024 [facility] [...] Joint [address], [address] [place] [address] Britany Núñez PA [address] [place] [address] Health Maintenance Due Date Last Done Comments [facility]-Infant/Child/Adol SDOH Screenings 1990 UBU-UHAKB-13 Vaccine (#1) 08/12/1996 [facility]-Varicella Vaccines (1 of 2 - 13+ 2-dose series) 08/12/2004 [facility]- SDOH Screenings 08/12/2009 [facility]-Adult SDOH Screenings 08/12/2009 HPV Vaccines (1 - 3-dose SCDM series) 08/12/2018 [facility]-Influenza Vaccine (#1) 2024 [facility]-Depression Screening 05/16/2025 05/16/2024, 11/09 [facility]-DTaP,Tdap,and Td Vaccines (8 - Td or Tdap) 08/12/2029 2019, 08/28/2018, 01/07/2017, Additional history exists [facility]-Zoster Vaccines (1 of 2) 08/12/2041 [facility]-HIB Vaccines Completed 02/04/1995, , 1991 [facility]-IPV Vaccines Aged Out 10/04/1995, , 03/26/1992, Additional history exists No longer eligible based on patient's age to complete this topic [facility]-Cervical Cancer Screening Discontinued [facility]-HPV/Cotest Discontinued 03/03/2021, [...] Completed 025, 11/25/2023, 06/21/2023, Additional history exists [facility]-Rotavirus Vaccines Aged Out No lo nger eligible based on patient's age to complete this topic Procedures Procedure Name Priority Date/Time Associated Diagnosis Comments XR MSK OUTSIDE IMAGES 01/02/2025 9:34 AM EDT ED HIV 1/2 ANTIBODY/ANTIGEN SCREEN WITH REFLEX TO HIV I/II DIFFERENTIATION STAT 12/20/2023 12:07 PM EDT ACUTE HEPATITIS PANEL Routine 06/23/2023 10:22 AM EDT DB positive PAP TEST - CYTOLOGY Routine 03/03/2021 2 :47 PM EST Menorrhagia with regular cycle from Last 3 Months or Most Recently Relevant to Health Maintenance Results * XR MSK OUTSIDE IMAGES (01/02/2025 9:34 AM EDT) Anatomical Region Laterality Modality Radiographic Kamini ging 01/02/2025 9:34 AM EDT Allie Medina DO IMG XR PROCEDURES Final Result * ED HIV 1/2 Antibody/Antigen Screen w/Reflex to HIV 1/2 Differentiation (12/20/2023 12:07 PM EDT) HIV 1 & 2 Antibody/Antigen Screen Non Reactive Non Reactive 12/20/2023 1:15 PM EDT [facility] Comment:Screening for HIV 1 & 2 antibodies, and P24 antigen is NONREACTIVE. No confirmatory testing is required. Blood Venous blood specimen / Unknown Venipuncture / Unknown 12/20/2023 12:07 PM EDT 12/20/2023 12:32 PM EDT Renetta Lopez MD LAB BLOOD ORDERABLES Final Resu lt Performing Organization Address City/[facility] Co de Phone Number [facility] [address] [place] [address] * Acute Hepatitis Panel (06/23/2023 10:22 AM EDT) Hepatitis B Surf Antigen Negative Negative 06/23/2023 12:49 PM EDT [facility] Hepatitis C Antibody Negative Negative 06/23/2023 12:49 PM EDT [facility] Hepatitis A Antibody IgM Negative Negative 06/23/2023 12:49 PM EDT [facility] Hepatitis B Core Antibody IgM Negative Negative 06/23/2023 12:49 PM EDT [facility] Blood Venous blood specimen / Unknown Venipuncture / Unknown 06/23/2023 10:22 AM EDT 06/23/2023 10:22 AM EDT Ginny Gayle Kadeem QUIGLEY LAB BLOOD ORDERABLES Final Result Performing Organization Address [facility] Co de Phone Number [facility] [address] [place] [address] * (ABNORMAL) Pap Smear (03/03/2021 2:47 PM EST) Case Report Cytology Case: [id number] Authorizing Provider: Carter Conner MD Collected: 03/03/2021 1447 Ordering Location: Obstetrics & Gynecology Received: 03/04/2021 0837 First Screen: Faraz Wild, CT Pathologist: Rose Porter MD Specimen: ThinPrep Pap Test, Liquid-Based Cervical/Vagina l, CERVICAL/VAGINA L 03/16/2021 10:12 AM EST [facility] Interpretation ATYPICAL SQUAMOUS CELLS OF UNDETERMINED SIGNIFICANCE (ASCUS)(A) 03/16/2021 10:12 AM EST [facility] at 1012 EST Specimen Adequacy Satisfactory for evaluation; endocervical/tr ansformation zone component present. Slide imaged by the ThinPrep Imaging system and selected 22 sagastume reviewed then full manual screening. 03/16/2021 10:12 AM EST [facility] Cervical cytology is a screening test [...] results is suggested (please call Microbiology at [phone] for results). 03/16/2021 10:12 AM EST [facility] Menstrual Status Cyclic 03/16/20 10:12 AM EST [facility] History of Hysterectomy Not Applicable 03/16/2021 10:12 AM EST [facility] Contraceptive History Not Applicable 03/16/2021 10:12 AM EST [facility] Last Menstrual Period 01/31/2021 03/16/2021 10:12 AM EST [facility] Clinical Information N92.0 - Menorrhagia with regular cycle [ICD-10-CM] 03/16/2021 10:12 AM EST [facility] Screening Type Routine Screen 2020 10:12 AM EST [facility] High Risk? No 03/16/2021 10:12 AM EST [facility] HPV Testing Requested? Request HPV Testing if ASCUS (Women 25 Years or Older) 03/16/2021 10:12 AM EST [facility] Previous Cancer History No 03/16/2021 10:12 AM EST [facility] Swab Vaginal and cervical cytologic material / Unknown Non-blood Collection / Unknown 03/03/2021 2:47 PM EST 03/04/2021 8:37 AM EST Carter Conner MD LAB CYTOLOGY ORDERABLES Final R esult [facility] [address] [place] [id number] from Last 3 Months or Most Recently Relevant to Health Maintenance Insurance [facility] MEDICAID Care Teams Furniture Designer Relationship Specialty Start Date End Date Sharmin Awad, SHOE CEMENTER [address] [place] [address] PCP - General Family Medicine 10/18/22
--- OUTSIDE RECORDS SUMMARY | 2025-01-22 09:43 | XMS_ITS | Clinical Summary ---
Author Organization [facility] Address [address] [place] [address] Care Team Providers Care Flatwork Folder Name Role Phone PhippsNilda SORAIDA Primary Care Provider [phone] Allergies Active Allergy Reactions Criticality Noted Date [...] 10/2022 Potentially Unsafe Housing Conditions Not on lyaa e 01/15/2023 Family and Community Support Answer [...] 11/23/2022, 12/15/2021 Insurance [employer] Care Teams Flatwork Folder Relationship Specialty Start Date End Date Nilda Phipps APRN [address] [place] [address] PCP - General Internal Medicine 10/25/23
--- OUTSIDE RECORDS SUMMARY | 2025-01-22 09:43 | XMS_ITS | Encounter Summary ---
Author Organization Healthcare Address [address] [place] [address] Care Team Providers Care Emery Grinder Name Role Phone Abby Marsha Nalini QUIGLEY Primary Care Provider Sharmin Awad APRN Primary Care Provider [phone] Encounter Details Date Type Department Care Team (Late st Contact Info) Description 08/09/2022 Outside Procedure External Location [address] [place] [address] Adarsh Gan MD [address] [place] [address] Social History Tobacco Use Types Packs/Day [...] How often do you attend chur or jehovah's witness services? Never 10/15/2020 Do [...] Recorded Patient Health Questionnaire-2 Score 0 07/29/2022 [facility] [...] place to sleep or slept in a long term (including now)? No 10/15/2020 Comments No Sex [...] Surgery Spine & Joint [address] [place] [address] Britany Núñez PA [address] [place] [address] documented as of this encounter Procedures Procedure Name Priority Date/Time Associated Diagnosis Comments CT ABDOMEN PELVIS W IV CONTRAST 08/09/2022 1:11 PM EDT documented in this encounter Results * CT Abdomen Pelvis w IV Contrast (08/09/2022 1:11 PM EDT) Anatomical Region Laterality Modality Abdomen, Pelvis Computed Tomogra phy 08/09/2022 1:11 PM EDT Narrative 08/09/2022 3:00 PM EDT [place] [id number] Name: JAMES RAMOS Exam Date: 08/09/2022 : 1990 Age 31 Gender: F Physician: ADARSH GAN Facility: [facility] Facility HSV: Outpatient Exam: CT ABD [...] JESS CABALLERO 2022-08-09 14:49:49 Procedure Note Provider, [facility] - 08/09/2022 [place] [id number] [place] [address] Name: JAMES RAMOS Exam Date: 08/09/2022 : 1990 Age 31 Gender: F Physician: ADARSH GAN Facility: [facility] Facility HSV: Outpatient Exam: CT ABD [...] Noted Time PHQ-9 Depression Total Score: 14 08/2 022 9:46 AM EDT A fall risk assessment has been complete d for the patient 07/29/2022 9:40 AM EDT A Body Mass Index follow-up plan has been documented for the patient 07/29/2022 12:05 PM EDT documented as of this encounter Care Teams Emery Grinder Relationship Specialty Start Date End Date Marsha Mora APRN [address] [place] [address] PCP - General 08/22/20 10/17/22 Sharmin Awad APRN [address] [place] [phone] PCP - General Family Medicine 10/18/22 documented as of this encounter
--- OUTSIDE RECORDS SUMMARY | 2025-01-22 09:43 | XMS_ITS | Encounter Summary ---
Author Organization [facility] Address [address] [place] [address] Care Team Providers Care Lsw Name Role Phone Sharmin Awad Hugo QUIGLEY Primary Care Provider [phone] Encounter Details Date Type Department Care Team ([facility] Contact Info) Description 01/08/2025 Telephone Medical Office Building Surgery Spine & Joint [address], [address] [place] [address] Britany Núñez PA [address] [place] [address] Social History Tobacco Use Types [...] How often do you attend chur or baptism services? Never 10/15/2020 Do you [...] Patient Health Questionnaire-2 Score 0 05/16/2024 [facility] Questionnaire Answer [...] Nj Tucker - 01/08/2025 3:27 PM EDT FAXED APPT 02/05/25 1140A ALBERTO PRICE/FER LL documented in this encounter Plan of Treatment Upcoming Encounters Date Type Department Care Team ([facility] st Contact Info) Description 02/05/2025 11:40 AM EDT Office Visit Medical Office Building Surgery Spine & Joint [address], [address] [place] [address] Britany Núñez, MARY [address] [place] [address] documented as of this encounter [...] documented as of this encounter Care Teams Lsw Relationship Specialty Start Date End Date Sharmin Awad, SORAIDA [address] [place] [phone] PCP - General Family Medicine 10/18/22 documented as of this encounter
--- OUTSIDE RECORDS SUMMARY | 2025-01-22 09:43 | XMS_ITS | Encounter Summary ---
Author Organization Healthcare Address [address] [place] [address] Care Team Providers Care Axle Turner Name Role Phone Marsha Mora APRN Primary Care Provider [phone] Sharmin Awad APRN Primary Care Provider [phone] Encounter Details Date Type Department Care Team (Late st Contact Info) Description 05/07/2022 Outside Procedure External Location [address] [place] [address] Provider, Nithin Victor Social History Tobacco Use [...] often do you attend chur ch or yazidi services? Never 10/15/2020 Do you [...] 4 11/26/2021 [facility] - [...] Joint [address], [address] [place] [address] Britany Núñez PA [address] [place] [address] documented as of this encounter Procedures Procedure Name Priority Date/Time Associated Diagnosis Comments CT ABDOMEN PELVIS W IV CONTRAST 05/07/2022 1:02 PM EST documented in this encounter Results * CT Abdomen Pelvis w IV Contrast (05/07/2022 1:02 PM EST) Anatomical Region Laterality Modality Abdomen, Pelvis Computed Tomogra phy 05/07/2022 1:02 PM EST Narrative 05/07/2022 2:55 PM EST [facility] [address] [place] [address] Name: JAMES RAMOS Exam Date: 05/07/2022 : 1990 Age 31 Gender: F Physician: JUANCARLOS SALDAÑA Facility: [facility] Facility HSV: Outpatient [...] Thank you for referring JAMES RAMOS to [facility]. Legally authenticated by JESS CABALLERO 2022-05-07 14:43:47 Procedure Note Provider, [facility] 05/07/2022 [facility] [address] [place] [address] Name: JAMES RAMOS Exam Date: 05/07/2022 : 1990 Age 31 Gender: F Physician: JUANCARLOS SALDAÑA Facility: [facility] Facility HSV: Outpatient [...] Thank you for referring JAMES RAMOS to [facility]. Legally authenticated by JESS CABALLERO 2022-05-07 14:43:47 Generic [place] Provider IMG CT PROCEDURES Fi nal Result [...] documented as of this encounter Care Teams Axle Turner Relationship Specialty Start Date End Date Marsha Mora APRN [address] [place] [phone] PCP - General 08/22/20 10/17/22 Sharmin Awad APRN [address] [place] [phone] PCP - General Family Medicine 10/18/22 documented as of this encounter
--- OUTSIDE RECORDS SUMMARY | 2025-01-22 09:43 | XMS_ITS | Encounter Summary ---
Author Organization Healthcare Address [address] [place] [address] Care Team Providers Care Piping Designer Name Role Phone AbbyMarsha english Nalini QUIGLEY Primary Care Provider [phone] Sharmin Awad APRN Primary Care Provider [phone] Encounter Details Date Type Department Care Team (Late st Contact Info) Description 04/26/2022 Outside Procedure External Location [address] [place] [address] Carter Conner MD [address] [place] [address] Social History Tobacco Use Types [...] How often do you attend chur or zoroastrian services? Never 10/15/2020 Do you belong to any clubs o r organizations such as amish groups, unions, fraternal or athletic groups, or [...] place to sleep or slept in a skilled nursing (including now)? No 10/15/2020 Comments No Sex [...] Joint [address], [address] [place] [address] Britany Núñez PA [address] [place] [address] documented as of this encounter Procedures Procedure Name Priority Date/Time Associated Diagnosis Comments CT ABDOMEN PELVIS W IV CONTRAST 04/26/2022 12:59 PM EST documented in this encounter Results * CT Abdomen Pelvis w IV Contrast (04/26/2022 12:59 PM EST) Anatomical Region Laterality Modality Abdomen, Pelvis Computed Tomogra phy 04/26/2022 12:5 9 PM EST Narrative 04/26/2022 2:56 PM EST [place] [address] [place] [address] Name: JAMES RAMOS Exam Date: 04/26/2022 : 1990 Age 31 Gender: F Physician: CARTER CONNER Facility: [facility] Facility HSV: Outpatient Exam: CT ABD [...] you for referring JAMES RAMOS to [facility]. Legally authenticated by POPE JAMES Arias 2022-04-26 14:45:02 Procedure Note Provider, Generic [place] - 04/26/2022 [facility] [address] [place] [address] Name: JAMES RAMOS Exam Date: 04/26/2022 : 1990 Age 31 Gender: F Physician: CARTER CONNER Facility: [facility] Facility HSV: Outpatient Exam: CT ABD [...] you for referring JAMES RAMOS to [facility]. Legally authenticated by POPE JAMES Arias [...] documented as of this encounter Care Teams Piping Designer Relationship Specialty Start Date End Date Marsha Mora APRN [address] [place] [address] PCP - General 08/22/20 10/17/22 Sharmin Awad APRN [address] [place] [address] PCP - General Family Medicine 10/18/22 documented as of this encounter
== END 2025-01-22 23:59 | disposition home or self-care (01) ==
LOC: RAD 09:33
PROVIDERS: PCP Nurse Practitioner Family; Visit Provider Nurse Practitioner Family
DX: S69.92XA Unspecified injury of left wrist, hand and finger(s), initial encounter (principal); X58.XXXA Exposure to other specified factors, initial encounter; R93.6 Abnormal findings on diagnostic imaging of limbs
CPT/HCPCS: 73110

== ENCOUNTER 2025-02-08 08:47 | Outpatient (CLI) | payer MEDICAID, SELFPAY ==
--- OUTSIDE RECORDS SUMMARY | 2025-02-05 11:39 | XMS_ITS | Encounter Summary ---
Author Organization Healthcare Address [address] [place] [address] Care Team Providers Care Doormaker Name Role Phone Sharmin Awad Hugo QUIGLEY Primary Care Provider [phone] Encounter Details Date Type Department Care Team (Latest Contact Info) Description 02/05/2025 11:39 AM EDT - 02/05/2025 11:59 PM EDT Hospital Encounter Medical Office Building Radiology [address] [place] [address] Degeneration of intervertebral disc of lumbar region, unspecified whether pain present Discharge Disposition: Home or Self Care Social History Tobacco Use Types Packs/Day Years [...] often do you attend chur ch or rastafarian services? Never 10/15/2020 Do you belong to [...] Recorded Patient Health Questionnaire-2 Score 0 05/16/2024 [facility] - Occupational Stress Questionnaire Answer [...] in a alf (including now)? No 10/15/2020 PHQ-2A Answer Date Recorded Patient Health Questionnaire-2 Score 0 11/23/2022 Comments No Sex and Gender Information Value Date Recorded Sex Assigned at Female 02/04/2022 8:54 AM EDT Legal Sex Female 6:31 PM EDT Gender Identity Female 02/04/2022 8:54 AM EDT Sexual Orientation Straight 02/04/2022 8: 54 AM EDT documented as of this encounter Medications at Time of Discharge amitriptyline (Elavil) 100 MG tablet Take 1 tablet (100 mg) by mouth every night. 04/25/2024 ascorbic acid (vitamin C) 1000 MG tablet Take 1 tablet (1,000 mg) by mouth 1 (one) time each day. colestipol (Colestid) 1 g tablet TAKE TWO TABLETS BY MOUTH TWICE DAILY FOR BILE ACID DIARRHEA 02/21/2024 estradiol (Estrace) 1 MG tablet Take 1 tablet (1 mg) by mouth 1 (one) time each day. 11/15/2023 hydroxychloroquine (Plaquenil) 200 MG tabletIndications:A NA positive Alternate between one and two tablets, every other day. 135 tablet 05/16/2024 ibuprofen 800 MG tablet Take 1 tablet (800 mg) by mouth every 8 (eight) hours. 05/20/2023 omeprazole (PriLOSEC) [address] capsule 1 capsule (40 mg). 09/28/2023 ondansetron ODT (Zofran-ODT) 4 MG disintegrating tablet DISSOLVE 1 TABLET IN MOUTH EVERY 6 TO 8 HOURS NEEDED Orilissa 200 MG tablet Take 1 tablet by mouth 2 (two) times a day. 11/02/2023 polyethylene glycol (Miralax) powder DISSOLVE 17 GRAMS OF POWDER INTO 4 TO 8 OUNCES OF WATER, JUICE, SODA, COFFEE, OR TEA THEN DRINK do not take laxative with USE of miralax OR generic equivalent. titrate TO stool consistency as reviewed. Increase water intake 04/29/2023 promethazine (Phenergan) 25 MG tablet TAKE ONE TABLET BY MOUTH THREE TIMES DAILY NEEDED FOR NAUSEA AND VOMITING FOR 5 DAYS 03/24/2024 Symbicort 80-4.5 MCG/ACT inhaler INHALE 2 PUFFS BY MOUTH TWICE DAILY --RINSE MOUTH AFTER USE-- use with spacer 04/13/2024 Ventolin HFA 108 (90 Base) MCG/ACT inhaler 04/14/2023 documented as of this encounter Plan of Treatment Not on file documented as of this encounter Procedures Procedure Name Priority Date/Time Associated Diagnosis Comments XR LUMBAR SPINE 2 OR 3 VIEWS Routine 02/05/2025 11:46 AM EDT Degeneration of intervertebral disc of lumbar region, unspecified whether pain present documented in this encounter Results * XR Lumbar Spine 2 or 3 Views (02/05/2025 11:46 AM EDT) Anatomical Region Laterality Modality Spine, L-spine Digital Radiogra phy Impressions 02/05/2025 12:10 PM EDT No fracture or malalignment. No significant disc space narrowing. CRITICAL RESULT: No. COMMUNICATION: Per this written report. Drafted by Richard Falk MD on 02/05/2025 12:08 PM Final report signed by Richard Falk MD on 02/05/2025 12:10 PM Narrative 02/05/2025 12:10 PM EDT CLINICAL INDICATION: pain TECHNIQUE: XR LUMBAR SPINE 2 OR 3 VIEWS COMPARISON: MRI 08 October 2024 FINDINGS: Cholecystectomy clips. Overlying soft tissues obscure bone detail. No fracture or malalignment. No significant disc space narrowing. Procedure Note Richard Falk MD - 02/05/2025 CLINICAL INDICATION: pain TECHNIQUE: XR LUMBAR SPINE 2 OR 3 VIEWS COMPARISON: MRI 08 October 2024 FINDINGS: Cholecystectomy clips. Overlying soft tissues obscure bone detail. Nofracture or malalignment. No significant disc space narrowing. IMPRESSION: No fracture or malalignment. No significant disc space narrowing. CRITICAL RESULT: No. COMMUNICATION: Per this written report. Drafted by Richard Falk MD on 02/05/2025 12:08 PM Final report signed by Richard Falk MD on 02/05/2025 12:10 PM Britany HERNANDEZ IMG XR PROCEDURES Final Resu lt documented in this encounter Visit Diagnoses Diagnosis Degeneration of intervertebral disc of lumbar region, unspecified whether pain present documented in this encounter Additional Health Concerns Assessment Noted Time PHQ-9 Depression Total Score: 14 022 9:46 AM EDT A fall risk assessment has been complete d for the patient 02/05/2025 11:50 AM EDT A Body Mass Index follow-up plan has been documented for the patient 02/05/2025 12:41 PM EDT documented as of this encounter Care Teams Doormaker Relationship Specialty Start Date End Date Sharmin Awad APRN [address] [place] [phone] PCP - General Family Medicine 10/18/22 documented as of this encounter
--- OUTSIDE RECORDS SUMMARY | 2025-02-05 11:40 | XMS_ITS | Encounter Summary ---
Author Organization [facility] Address [address] [place] [address] Care Team Providers Care Assistant Corporate Secretary Name Role Phone Sharmin Awad Hugo QUIGLEY Primary Care Provider [phone] Reason for Visit * Reason Comments Consult Consult * Consultation (Routine) - Closed Specialty Diagnoses / Procedures Referred By Prince boyle Referred To Contact Neurosurgery Diagnoses DDD (degenerative disc disease), lumbar Jenny Altman, REGIONAL MARKETING MANAGER [address] [place] [address] Phone: tel: fax: [facility] [address] [place] [address] Phone: tel: fax: Referral ID Status Reason Start Date Expiration Date V isits Requested Visits Authorized [id number] Closed Specialty Services Required 01/08/2025 07/10/2026 1 1 Encounter Details Date Type Department Care Team (Late st Contact Info) Description 02/05/2025 11:40 AM EDT Office Visit Medical Office Building [facility] [address], [address] [place] [address] Briatny Núñez PA [address] [place] [address] Lumbar spine pain (Primary Dx) Social History Tobacco Use Types Packs/Day Years [...] week 10/15/2020 How often do you attend [facility] or episcopalian services? Never 10/15/2020 Do you belong to any clubs o r organizations such as alevism groups, unions, fraternal or athletic groups, or [...] Recorded Patient Health Questionnaire-2 Score 0 05/16/2024 [facility] - Occupational Stress Questionnaire Answer Date [...] AM EDT documented as of this encounter Last Filed Vital Signs Vital Sign Reading Time Taken Comments Blood Pressure 101/70 02/05/2025 11:50 AM EDT Pulse 97 02/05/2025 11:50 AM EDT Temperature - - Respiratory Rate - - Oxygen Saturation 98% 02/05/2025 11: 50 AM EDT Inhaled Oxygen Concentration - - Weight 69.3 kg (152 lb 12.5 oz) 025 11:50 AM EDT Height 157.5 cm (5' 2 ) 02/05/2025 11:5 0 AM EDT Body Mass Index 27.94 02/05/2025 11:50 AM EDT documented in this encounter Miscellaneous Notes * Progress Notes - Britany Núñez PA - 02/05/2025 11:40 AM EDT Images from the original note were not included. [facility] Note CHIEF COMPLAINT: low back pain Subjective: History of Present Illness: Simone Davila is a 34 y.o. female who presents today for evaluation of low back pain. It is not accompanied by radiculopathy. Pain has been present since her hysterectomy last year. The pain waxes andwanes. She takes occasional anti- inflammatories and Tylenol. Currently, she is taking meloxicam dueto a left wrist injury. She has been told she may have a scaphoid fracture and has a MRI on Tuesday.She denies radicular pain into her lower extremities. The pain is typically in no left lumbosacral region. Sometimes she has left buttock pain. She has been told she has lumbar stenosis, degenerativedisc disease, bilateral SI joint dysfunction but no one has really given her treatment. She had physical therapy last year and was given a core strengthening program. She admits she has not been following that program. She had an MRI in September which is available for review. She is having some issues with bladder incontinence but was recently diagnosed with interstitial cystitis and started medication which should help with her symptoms. She denies saddle anesthesia. She has not noticed weakness in her lower extremities. Cervical Spine Associated symptoms include headaches, leg pain, tingling and weakness. Pertinent negatives includeno chest pain, fever, numbness or weight loss. Lumbar Spine Associated symptoms include abdominal pain, bladder incontinence, bowel incontinence, headaches, leg pain, pelvic pain, tingling and weakness. Pertinent negatives include no chest pain, fever, numbness, paresthesias, perianal numbness or weight loss. Back Pain This is a chronic problem. The current episode started more than 1 month ago. The problem occurs daily. The problem is unchanged. The pain is present in the lumbar spine and sacro-iliac. The quality of the pain is described as aching, shooting and stabbing. The pain radiates to the left thigh. The pain is at a severity of 7/10. The pain is moderate. The pain is The same all the time. Stiffness ispresent All day. Associated symptoms include abdominal pain, bladder incontinence, bowel incontinence, headaches, leg pain, pelvic pain, tingling and weakness. Pertinent negatives include no chest pain, fever, numbness, paresthesias, perianal numbness or weight loss. She has tried heat and home exer cises for the symptoms. The treatment provided mild relief. Prior Surgeries: Surgical History[1] Previous Steroid Injections: none PAST MEDICAL HISTORY Past Medical History[2] MEDICATIONS Current Medications[3] ALLERGIES Allergies[4] PAST SURGICAL HISTORY Surgical History[5] FAMILY HISTORY Family History[6] SOCIAL HISTORY Tobacco use: No Alchohol use: No Drug use: never REVIEW OF SYSTEMS: Please see above. A complete 14 point review of systems was performed and is otherwise negative. Objective: Visit Vitals BP 101/70 Pulse 97 Ht 1.575 m (5' 2 ) Wt 69.3 kg (152 lb 12.5 oz) LMP 03/11/2021 (Approximate) SpO2 98% BMI 27.94 kg/m?? OB Status Hysterectomy Smoking Status Former BSA 1.74 m?? PHYSICAL EXAMINATION: GENERAL: The patient is a pleasant female in no acute distress. General Physical Exam Constitutional Appears well-developed and well-nourished. Eyes Pupils are equal, round, and reactive to light. Neck No tracheal deviation or JVD noted. No previous surgical scars Cardiovascular Minimal to no peripheral edema, intact distal pulses Pulmonary/Chest Effort normal, no shortness of breath Neurological Alert and oriented to person, place, and time Skin Skin is warm and dry Psychiatric Normal mood and affect, behavior and judgment FOCUSED MUSCULOSKELETAL/NEUROLOGIC EXAM: Prior Surgical Incisions: None Motor Strength Right Left L2: Hip flexion (Iliopsoas) 5/5 5/5 L3: Knee extension (Quad) 08/13 08/13 L4: Ankle DF (TA) 08/13 08/13 L5: Great Toe DF (EHL) 08/13 08/13 S1: Ankle Pf, Foot Eversion (Peroneal longus/brevis) 08/13 08/13 Sensation Right Left L2: Proximal anterior thigh normal normal L3: Mid anterior thigh normal normal L4: Medial leg/foot, great toe (Saphenous n.) normal normal L5: Dorsum of mid foot normal normal S1: Lateral leg/foot, little toe, Back of leg (Sural n.) normal normal Reflexes Right Left L4: Patellar 2/4 2/4 S1: Achilles 2/4 2/4 Babinski Absent Absent Clonus <3 beats <3 beats Straight leg raise is Negative Negative CALVIN bilaterally, negative Gaenslen's, and negative pelvic compression and distraction, negative Marbella fingers bilaterally Gait is heel toe IMAGING: Plain Radiographs: 2 views of the lumbar spine were obtained in clinic and independently reviewed today showing: Minimal retrolisthesis L5 on S1. Otherwise disc height vertebral height maintained throughout the lumbar spine. No bony abnormalities or malalignment. MRI I reviewed the lumbar spine MRI from October 08, 2024. Disc height vertebral height maintained throughout the lumbar spine. No areas of central canal or neural foraminal narrowing. 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 Mild facet hypertrophy in the lower lumbar spine. Assessment and Plan: Simone Davila is a 34 y.o. female who, after review of history, physical exam findings and imaging, is diagnosed with lumbar spine pain. That has patient has a normal neurologic exam today in clinic. She has no areas of central canal or neural foraminal stenosis. She has negative exam for SI joint pain. I do not find anything on her exam or her MRI that would require surgery. I feel like she wouldbenefit from a good core strengthening program as well as lower extremity strengthening and stretching exercises. Patient states she has an excellent program that she can start doing at home. She waspleased to hear she does not have SI joint problems that has not have any evidence of degeneration requiring surgery in her lumbar spine. Given this information, she feels like she can treat her symptoms at home. I will see her again on a as needed basis. She has any further questions or concerns she is welcome to call for an appointment. We discussed that lumbar discs degenerate throughout one's lifetime, though, the pain is often worse in the middle of life. This corresponds to micro- instability in the disc and translates into overloading of the facet joint complex, causing pain. This is expected to stabilize as the degenerative process progresses. This results in stiffness and some height loss, but less pain, in general. Treatment should be aimed at symptom control with modalities such as episodic anti-inflammatories, muscle relaxers, physical therapy exercises, and stretching. Surgery is reserved for situations of nerve orspinal cord compression or structural instability, which are not present currently. [1] Past Surgical History: Procedure Laterality Date CHOLECYSTECTOMY N/A Cholecystectomy Laparoscopic from [facility] DILATION AND CURETTAGE OF UTERUS N/A Dilation And Curettage from [facility] HYSTERECTOMY 03/16/2022 TUBAL LIGATION N/A Tubal Ligation from [facility] WISDOM TOOTH EXTRACTION N/A Oral Surgery Tooth Extraction [place] Tooth from [facility] [2] Past Medical History: Diagnosis Date CTS (carpal tunnel syndrome) 2015 Herpes 2019 Other diseases of the blood and blood-forming organs and certain disorders involving the immune mechanism complicating , unspecified trimester Gestational thrombocytopenia [3] Current Outpatient Medications: amitriptyline (Elavil) 100 MG tablet, Take 1 tablet (100 mg) by mouth every night., Disp: , Rfl: ascorbic acid (vitamin C) 1000 MG tablet, Take 1 tablet (1,000 mg) by mouth 1 (one) time each day.,Disp: , Rfl: colestipol (Colestid) 1 g tablet, TAKE TWO TABLETS BY MOUTH TWICE DAILY FOR BILE ACID DIARRHEA, Disp: , Rfl: estradiol (Estrace) 1 MG tablet, Take 1 tablet (1 mg) by mouth 1 (one) time each day., Disp: , Rfl: hydroxychloroquine (Plaquenil) 200 MG tablet, Alternate between one and two tablets, every other day., Disp: 135 tablet, Rfl: 0 ibuprofen 800 MG tablet, Take 1 tablet (800 mg) by mouth every 8 (eight) hours., Disp: , Rfl: omeprazole (PriLOSEC) [address] capsule, 1 capsule (40 mg)., Disp: , Rfl: ondansetron ODT (Zofran-ODT) 4 MG disintegrating tablet, DISSOLVE 1 TABLET IN MOUTH EVERY 6 TO 8 HOURS NEEDED, Disp: , Rfl: Orilissa 200 MG tablet, Take 1 tablet by mouth 2 (two) times a day., Disp: , Rfl: polyethylene glycol (Miralax) powder, DISSOLVE 17 GRAMS OF POWDER INTO 4 TO 8 OUNCES OF WATER, JUICE, SODA, COFFEE, OR TEA THEN DRINK do not take laxative with USE of miralax OR generic equivalent. titrate TO stool consistency as reviewed. Increase water intake, Disp: , Rfl: promethazine (Phenergan) 25 MG tablet, TAKE ONE TABLET BY MOUTH THREE TIMES DAILY NEEDED FOR NAUSEA AND VOMITING FOR 5 DAYS, Disp: , Rfl: Symbicort 80-4.5 MCG/ACT inhaler, INHALE 2 PUFFS BY MOUTH TWICE DAILY --RINSE MOUTH AFTER USE-- usewith spacer, Disp: , Rfl: Ventolin HFA 108 (90 Base) MCG/ACT inhaler, , Disp: , Rfl: [4] Allergies Allergen Reactions Latex Rash [5] Past Surgical History: Procedure Laterality Date CHOLECYSTECTOMY N/A Cholecystectomy Laparoscopic from [facility] DILATION AND CURETTAGE OF UTERUS N/A Dilation And Curettage from [facility] HYSTERECTOMY 03/16/2022 TUBAL LIGATION N/A Tubal Ligation from [facility] WISDOM TOOTH EXTRACTION N/A Oral Surgery Tooth Extraction [place] Tooth from [facility] [6] Family History Problem Relation Name Age of Onset Conversions - Other Mother Abdoulaye Jones Blaise Family history unknown Melanoma Mother Abdoulaye Jones Blaise Cancer Mother Abdoulaye Jones Blaise Recurrent Infections Mother Abdoulaye Jones Blaise John's thyroiditis Sister Autoimmune disease Father William Davila Cancer Mother's Sister Marsha Sommer Welsh Cancer Mother's Sister Abdoulaye Jones Blaise documented in this encounter Plan of Treatment Not on file documented as of this encounter Results * XR Lumbar Spine [...] documented in this encounter Visit Diagnoses Diagnosis Lumbar spine pain- Primary Degeneration of intervertebral disc of lumbar region, [...] documented as of this encounter Care Teams Assistant Corporate Secretary Relationship Specialty Start Date End Date Sharmin Awad APRN [address] [place] [address] PCP - General Family Medicine 10/18/22 documented as of this encounter
--- OUTSIDE RECORDS SUMMARY | 2025-02-08 08:56 | XMS_ITS | Encounter Summary ---
Author Organization Healthcare Address [address] [place] [address] Care Team Providers Care Wood Buffer Name Role Phone RiteshSharmin Hugo QUIGLEY Primary Care Provider [phone] Encounter Details Date Type Department Care Team ([facility] Contact Info) Description 10/08/2024 Orders Only External Location [address] [place] [address] Provider, External Social History Tobacco Use Types [...] often do you attend chur ch or mormonism services? Never 10/15/2020 Do you belong to any clubs o r organizations such as yazidi groups, unions, fraternal or athletic groups, or [...] 0 05/16/2024 [facility] - Occupational Stress [...] documented as of this encounter Care Teams Wood Buffer Relationship Specialty Start Date End Date Sharmin Awad APRN [address] [place] [address] PCP - General Family Medicine 10/18/22 documented as of this encounter
--- OUTSIDE RECORDS SUMMARY | 2025-02-08 08:56 | XMS_ITS | Referral Summary ---
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
--- OUTSIDE RECORDS SUMMARY | 2025-02-08 08:56 | XMS_ITS | Encounter Summary ---
Author Organization Healthcare Address [address] [place] [address] Care Team Providers Care Varnish Filterer Name Role Phone AbbyMarsha english Nalini QUIGLEY Primary Care Provider [phone] Sharmin Awad APRN Primary Care Provider [phone] Encounter Details Date Type Department Care Team (Late st Contact Info) Description 01/20/2022 Outside Procedure External Location [address] [place] [address] Sharmin Lambert, SWING TYPE LATHE OPERATOR [address] [place] [address] Social History Tobacco Use Types [...] How often do you attend chur or anglican services? Never 10/15/2020 Do you belong to any clubs o r organizations such as jehovah's witness groups, unions, fraternal or athletic groups, or [...] Questionnaire-2 Score 4 [facility]/26/2021 [facility] Questionnaire Answer Date [...] AM EDT Narrative 01/20/2022 11:29 [place] [id number] Name: JAMES RAMOS Exam Date: 01/20/2022 : 1990 Age 31 Gender: F Physician: SHARMIN LAMBERT Facility: [facility] Facility HSV: Outpatient Exam: LIVER ULTRASOUND [...] for referring JAMES RAMOS to [facility]. Legally authenticated by CELINA ANAND 2022-01-20 11:18:05 Procedure Note Provider, [facility] - 01/20/2022 [place] [id number] Name: JAMES RAMOS Exam Date: 01/20/2022 : 1990 Age 31 Gender: F Physician: SHARMIN LAMBERT Facility: [facility] Facility HSV: Outpatient Exam: LIVER ULTRASOUND [...] for referring JAMES RAMOS to [facility]. Legally authenticated by CELINA ANAND 2022-01-20 11:18:05 [...] documented as of this encounter Care Teams Varnish Filterer Relationship Specialty Start Date End Date Marsha Mora APRN [address] [place] [phone] PCP - General 08/22/20 10/17/22 Sharmin Awad APRN [address] [place] [phone] PCP - General Family Medicine 10/18/22 documented as of this encounter
--- OUTSIDE RECORDS SUMMARY | 2025-02-08 08:56 | XMS_ITS | Continuity of Care Document ---
[facility] Organization [facility] [place] Address [address] [place] [address] Care Team Providers Care Field Service Manager Name Role Phone GUILHERME CHIANG Primary Care Provider Assessment No assessment recorded. Plan of Treatment Reminders Order Date Submit Date Provider Last Modified By Organization Details Last Modified Time Details Appointments OV EST 15 025 01:00PM Chandan Griffin Jr, MD Not available Not available Not available Lab None record ed. Referral None record ed. Procedures None record ed. Surgeries None record ed. Imaging None record ed. Medication Orders None record ed. Patient TargetsNo targets recorded. Patient InstructionsNo instructions recorded. Reason for Referral None Reported. Problems Name Problem SNOMED Code Status Onset Date Resolution Date Notes Provider Name and Address Organization Details Recorded Time Abdominal pain 12455032 Active 2022 Henna whelan, [place] - [facility] & [place] 3 10:58:39 Chest pain 89327137 Active 2022 Henna whelan, [place] - [facility] & [place] 3 10:58:44 Dyspnea on exertion 65553209 Active 2022 Matthew Gordon MD [address], [place], [address] , [place] - [facility] & [place] 3 11:36:06 Cyst of ovary 59559747 Active 2022 Anastasia whelan, [place] - [facility] - [place] & [place] 3 10:10:19 Loose stool 385044617 Active 2022 Joe Salmeron PA-C [address], [place], [address] , [place] - [facility] - [place] & [place] 3 10:23:14 Pain associated with defecation 117699932 Active 2022 Joe Salmeron PA-C [address], [place], [address] , [place] - [facility] - [place] & [place] 3 10:23:19 Homogeneous antinuclear antibody pattern 617501942 Active 2022 Joe Salmeron PA-C [address], [place], [address] , [place] - [facility] - [place] & [place] 3 10:24:55 Colitis 57999586 Active 2022 Joe Salmeron PA-C [address], [place], [address] , [place] - [facility] - [place] & [place] 3 10:32:51 Increased liver function 45808948 Active 2022 Joe Salmeron PA-C [address], [place], [address] , [place] - [facility] - [place] & [place] 3 10:50:40 Non-alcoholic fatty liver 521211666 Active 2022 Joe Salmeron PA-C [address] [facility], [place], [address] , [place] - [facility] - [place] & [place] 3 10:50:44 Irritable bowel syndrome with diarrhea 806867688 Active 2022 Joe Salmeron PA-C [address], [place], [address] , [place] - [facility] - [place] & [place] 3 11:07:26 Chronic idiopathic constipation 55554034 Active 2022 Jeo Salmeron PA-C [address], [place], [address] , [place] - [facility] - [place] & [place] 3 11:06:57 Problem Notes None recorded. Procedures Surgical History Date Name Laterality Status Provider Name and Address Organization Details Recorded Time 04/11/19 23 Abdominal Surgery completed Blanca Elamchad Toro AMBER - [facility] - [place] & [place] 04/29/2022 10:59:15 04/11/19 23 Hysterectomy completed Anastasia Steven AMBER - [facility] - [place] & [place] 07/27/2022 10:07:32 04/11/19 22 Abdominal Surgery completed Blanca Gastonett Cortez CL[place] - [facility] - [place] & [place] 04/29/2022 10:59:14 02/19/20 21 Date of Last Pap Smear completed Henna Leigh AMBER - [facility] - [place] & [place] 04/13/2022 10:49:53 04/11/19 21 Abdominal Surgery completed Blanca Asiachad Toro AMBER - [facility] - [place] & [place] 04/29/2022 10:59:15 04/11/19 21 Other completed Henna CLARK - [facility] - [place] & [place] 04/13/2022 10:49:53 04/11/19 19 Other completed Henna Lu AMBER - [facility] - [place] & [place] 04/13/2022 10:49:53 04/11/19 16 Other completed Henna Leigh AMBER - [facility] - [place] & [place] 04/13/2022 10:49:53 04/11/19 15 Abdominal Surgery completed Blanca Gastonjayant Toro AMBER - [facility] - [place] & [place] 04/29/2022 10:59:14 04/11/19 14 Gastrointestinal Surgery completed Henna Leigh AMBER - [facility] - [place] & [place] 04/13/2022 10:49:53 04/11/19 13 Other completed Henna Leigh [place] - [facility] - [place] & [place] 04/13/2022 10:49:53 Imaging Results None recorded. Procedure Notes None recorded. Medical Equipment None Reported. Allergies Allergen ID Allergen Name Allergen Category Reaction Reaction Severity Criticality Documentation Date Start Date Code Code System Note Provider Name and Address Organization Details Recorded Time 76191 latex environme nt,medica tion Not available Not available Not available 04/13/2022 20049 91 RxNorm Blanca whelan [place] - [facility] - [place] & [place] 3 10:59:09 37145 rubber, unspecifi ed environme nt,medica tion Not available Not available Not available 04/20/2022 AMBER Lozano [facility] & [place] 3 10:59:09 86810 Latex (substanc e) environme nt,medica tion Not available Not available Not available 04/29/2022 20521 8007 SNOMED AMBER Lozano [facility] & [place] 3 10:59:09 Medications Name Sig Start Date Stop Date Status Note LastModified by Organization Details LastModified Time pain reliever 325mg tab TAKE 2 TABLETS BY MOUTH EVERY 6 HOURS NEEDED FOR MILD PAIN 1-3 PAIN SCALE 12/05 completed Not Available Not Available Not Available cyclobenzap rine 10 mg tablet TAKE 1 TABLET BY MOUTH TWICE DAILY NEEDED FOR MUSCLE SPASM 02/01 completed Not Available Not Available Not Available amoxicillin 500 mg capsule TAKE 1 CAPSULE BY MOUTH THREE TIMES DAILY FOR 10 DAYS 02/01 completed Not Available Not Available Not Available clotrimazol e 10 mg antonio TAKE AND DISSOLVE ONE TABLET ON AFFECTED MUCOSAL AREA 5 TIMES DAILY FOR 14 DAYS 12/05 completed Not Available Not Available Not Available buspirone 5 mg tablet TAKE 1 TABLET BY MOUTH TWICE DAILY NEEDED FOR ANXIETY 04/20 completed Not Available Not Available Not Available terconazole 0.4 % vaginal cream INSERT 1 APPLICATO RFUL VAGINALLY , ONCE NIGHTLY, FOR 7 DAYS 12/05 completed Not Available Not Available Not Available promethazin e-DM 6.25 mg-15 mg/5 mL oral syrup TAKE 1 TEASPOONF UL (5 ML) BY MOUTH EVERY 4 TO 6 HOURS NEEDED FOR cough active Not Available Not Available No t Available ascorbic acid (vitamin C) 1,000 mg tablet TAKE ONE TABLET BY MOUTH DAILY active Not Available Not Available No t Available venlafaxine ER 37.5 mg capsule,ext ended release 24 hr TAKE 1 CAPSULE BY MOUTH ONCE DAILY; DO NOT CRUCH OR CHEW 04/13 completed Not Available Not Available Not Available ketoconazol e 2 % shampoo APPLY TO WET SCALP, LATHER, LEAVE ON FOR 5 MINUTES, THEN RINSE, USE 2 TIMES PER WEEK 12/05 completed Not Available Not Available Not Available cetirizine 10 mg tablet TAKE ONE TABLET BY MOUTH EVERY DAY 12/05 completed Not Available Not Available Not Available azithromyci n 250 mg tablet TAKE 2 TABLETS BY MOUTH ON DAY 1, THEN TAKE 1 TABLET DAILY ON DAYS 2-5 -- FINISH ALL MEDICINE -- 01/30 completed Not Available Not Available Not Available Retin-A 0.025 % topical cream APPLY A PEA SIZED AMOUNT TO CLEAN FACE EVERY EVENING DIRECTED 12/05 completed Not Available Not Available Not Available ibuprofen 800 mg tablet TAKE ONE TABLET BY MOUTH EVERY 8 HOURS --TAKE WITH FOOD-- 12/05 completed Not Available Not Available Not Available fluconazole 150 mg tablet TAKE ONE TABLET BY MOUTH A ONE-TIME DOSE; MAY REPEAT second DOSE AFTER 72 hours if symptoms persist 12/05 completed Not Available Not Available Not Available valacyclovi r 1 gram tablet TAKE 1 TABLET BY MOUTH TWICE DAILY FOR 10 DAYS 04/13 completed Not Available Not Available Not Available Nystop 100,000 unit/gram topical powder APPLY TOPICALLY TO THE AFFECTED AREA(S) TWICE DAILY Sprinkle between TOES FOR itchy, DRY, cracked SKIN 12/05 completed Not Available Not Available Not Available ondansetron HCl 8 mg tablet TAKE 1 TABLET BY MOUTH EVERY 8 HOURS NEEDED FOR NAUSEA AND VOMITING 07/27 completed Not Available Not Available Not Available meloxicam 15 mg tablet TAKE ONE TABLET BY MOUTH EVERY DAY --TAKE WITH FOOD-- active Not Available Not Available No t Available phenazopyri dine 200 mg tablet TAKE 1 TABLET BY MOUTH THREE TIMES DAILY 04/13 completed Not Available Not Available Not Available ondansetron HCl 4 mg tablet TAKE 1 TABLET BY MOUTH EVERY 8 HOURS NEEDED FOR NAUSEA 12/05 completed Not Available Not Available Not Available famotidine 40 mg tablet TAKE ONE TABLET BY MOUTH EVERY DAY AT BEDTIME active Not Available Not Available No t Available Elmiron 100 mg capsule Take 1 capsule twice a day by oral route for 30 days. 2024 active Not Available Not Available Not Avai lable clobetasol 0.05 % topical cream APPLY TOPICALLY TO THE AFFECTED AREA(S) TWICE DAILY 12/05 completed Not Available Not Available Not Available permethrin 5 % topical cream APPLY TO SKIN FROM HAIRLINE TO TOES AND WASH OFF FOR 8-10 HOURS LATER 12/05 completed Not Available Not Available Not Available metronidazo le 500 mg tablet TAKE 1 TABLET BY MOUTH TWICE DAILY FOR 10 DAYS 07/27 completed Not Available Not Available Not Available prednisone 5 mg/5 mL oral solution take 7.5 ML BY MOUTH ONCE DAILY FOR 5 DAYS --TAKE WITH FOOD-- 12/05 completed Not Available Not Available Not Available sulfamethox azole 800 mg-trimetho prim 160 mg tablet TAKE 1 TABLET BY MOUTH TWICE DAILY FOR 14 DAYS 07/27 completed Not Available Not Available Not Available omeprazole 40 mg capsule,del ayed release TAKE ONE CAPSULE BY MOUTH EVERY DAY active Not Available Not Available No t Available tramadol 50 mg tablet TAKE 1 TABLET BY MOUTH EVERY 6 HOURS NEEDED FOR ABDOMINAL PAIN/DISC OMFORT 09/11 completed Not Available Not Available Not Available amitriptyli ne 50 mg tablet TAKE ONE TABLET BY MOUTH EVERY DAY AT BEDTIME active Not Available Not Available No t Available acetaminoph en 500 mg tablet TAKE ONE TABLET BY MOUTH EVERY 6 HOURS NEEDED FOR FEVER OR pain 12/05 completed Not Available Not Available Not Available oxycodone-a cetaminophe n 5 mg-325 mg tablet TAKE 1 TABLET BY MOUTH EVERY 6 HOURS IF NEEDED FOR MODERATE TO SEVERE PAIN 02/01 completed Not Available Not Available Not Available metoclopram mraielena 5 mg tablet TAKE ONE TABLET BY MOUTH TWICE DAILY 30 minutes BEFORE meals 12/05 completed Not Available Not Available Not Available methocarbam ol 750 mg tablet TAKE 1 TABLET BY MOUTH EVERY 6 HOURS ( 1) NEEDED FOR MUSCLE SPASM 04/13 completed Not Available Not Available Not Available estradiol 1 mg tablet TAKE ONE TABLET BY MOUTH EVERY DAY 12/05 completed Not Available Not Available Not Available Lice Treatment (permethrin ) 1 % topical liquid 12/05 completed Not Available Not Available Not Available dicyclomine 20 mg tablet TAKE 1 TABLET BY MOUTH 4 TIMES DAILY BEFORE MEAL(S) 09/11 completed Not Available Not Available Not Available hydrocortis one 1 % topical cream APPLY TOPICALLY TO THE AFFECTED AREA(S) THREE TIMES DAILY NEEDED FOR SKIN irritatio n 12/05 completed Not Available Not Available Not Available hydrocodone 7.5 mg-acetamin ophen 325 mg tablet TAKE 1 TABLET BY MOUTH EVERY 6 HOURS NEEDED FOR SEVERE PAIN FOR UP TO 15 DOSES 04/13 completed Not Available Not Available Not Available tobramycin 0.3 % eye drops INSTILL 1 DROP INTO THE EYE(S) EVERY 4 HOURS FOR 5 DAYS 12/05 completed Not Available Not Available Not Available clotrimazol e-betametha sone 1 %-0.05 % topical cream APPLY TOPICALLY TO THE AFFECTED AREA(S) TWICE DAILY FOR lesion active Not Available Not Available No t Available lidocaine 5 % topical patch APPLY 1 PATCH TOPICALLY TO THE AFFECTED AREA ONCE DAILY AND LEAVE IN PLACE FOR 12 HOURS, THEN REMOVE AND LEAVE OFF FOR 12 HOURS 12/05 completed Not Available Not Available Not Available promethazin e 25 mg tablet TAKE ONE TABLET BY MOUTH THREE TIMES DAILY NEEDED FOR NAUSEA AND VOMITING FOR 5 DAYS 12/05 completed Not Available Not Available Not Available gabapentin 300 mg capsule TAKE 1 CAPSULE BY MOUTH THREE TIMES DAILY 07/27 completed Not Available Not Available Not Available estradiol 2 mg tablet TAKE ONE TABLET BY MOUTH EVERY DAY 01/30 completed Not Available Not Available Not Available simethicone 125 mg chewable tablet chew AND swallow 1 TABLET BY MOUTH EVERY DAY NEEDED FOR abdominal distentio n 12/05 completed Not Available Not Available Not Available hydroxychlo roquine 200 mg tablet ALTERNATE BETWEEN one AND two TABLETS EVERY OTHER DAY 12/05 completed Not Available Not Available Not Available ibuprofen 600 mg tablet TAKE 1 TABLET BY MOUTH EVERY 6 HOURS NEEDED FOR MILD PAIN SCALE 1-3 09/11 completed Not Available Not Available Not Available polyethylen e glycol 3350 17 gram/dose oral powder DISSOLVE 17 GRAMS OF POWDER INTO 4 TO 8 OUNCES OF WATER, JUICE, SODA, COFFEE, OR TEA THEN DRINK do not take laxative with USE of miralax OR generic equivalen t. titrate TO stool consisten cy as reviewed. Increase water intake 12/05 completed Not Available Not Available Not Available levofloxaci n 500 mg tablet TAKE 1 TABLET BY MOUTH ONCE DAILY 12/05 completed Not Available Not Available Not Available levofloxaci n 750 mg tablet TAKE 1 TABLET BY MOUTH ONCE DAILY 12/05 completed Not Available Not Available Not Available methylpredn isolone 4 mg tablets in a dose pack TAKE BY MOUTH DIRECTED ON INSIDE OF PACKAGE 02/01 completed Not Available Not Available Not Available ketoconazol e 2 % topical cream APPLY TOPICALLY TO THE AFFECTED AREA(S) EVERY DAY FOR 30 DAYS do not apply between toes 12/05 completed Not Available Not Available Not Available bromphenira mine-pseudo ephedrine-D M 2 mg-30 mg-10 mg/5 mL oral syrup TAKE 5 ML BY MOUTH EVERY 6 HOURS NEEDED FOR COUGH 02/01 completed Not Available Not Available Not Available ondansetron 4 mg disintegrat ing tablet DISSOLVE ONE TABLET in MOUTH EVERY 6 HOURS NEEDED FOR NAUSEA AND VOMITING 12/05 completed Not Available Not Available Not Available cefdinir 300 mg capsule Take 1 capsule every 12 hours by oral route. 2024 active Not Available Not Available Not Avai lable amitriptyli ne 100 mg tablet TAKE ONE TABLET BY MOUTH EVERY NIGHT active Not Available Not Available No t Available colestipol 1 gram tablet TAKE TWO TABLETS BY MOUTH TWICE DAILY FOR BILE ACID DIARRHEA active Not Available Not Available No t Available dicyclomine 10 mg capsule TAKE ONE CAPSULE BY MOUTH TWICE DAILY 12/05 completed Not Available Not Available Not Available naproxen 500 mg tablet TAKE 1 TABLET BY MOUTH TWICE DAILY WITH MEALS 04/13 completed Not Available Not Available Not Available amoxicillin 875 mg-potassiu m clavulanate 125 mg tablet TAKE ONE TABLET BY MOUTH TWICE DAILY FOR 10 DAYS -- FINISH ALL MEDICINE -- 12/05 completed Not Available Not Available Not Available Ventolin HFA 90 mcg/actuati on aerosol inhaler INHALE 2 PUFFS BY MOUTH EVERY 4 HOURS NEEDED FOR CHEST SYMPTOMS: MAY USE 15 MINUTES PRE-EXERC ISE 12/05 completed Not Available Not Available Not Available oxycodone 5 mg tablet TAKE ONE TABLET BY MOUTH TWICE DAILY NEEDED FOR PAIN MAY CAUSE DROWSINES S 12/05 completed Not Available Not Available Not Available Vitamin C With Luba Hips 500 mg tablet TAKE 1 TABLET BY MOUTH TWICE DAILY 09/11 completed Not Available Not Available Not Available hydrocodone 7.5 mg-acetamin ophen 325 mg/15 mL oral solution TAKE 15ML BY MOUTH EVERY 6 HOURS NEEDED FOR PAIN FOR 7 DAYS MAY CAUSE DROWSINES S 12/05 completed Not Available Not Available Not Available duloxetine 30 mg capsule,del ayed release TAKE ONE CAPSULE BY MOUTH EVERY DAY active Not Available Not Available No t Available solifenacin 10 mg tablet TAKE ONE TABLET BY MOUTH EVERY DAY active Not Available Not Available No t Available Vegetable Laxative 8.6 mg tablet TAKE 1 TABLET BY MOUTH ONCE DAILY 12/05 completed Not Available Not Available Not Available Jolessa 0.15 mg-30 mcg (91) tablets,3 month dose pack TAKE 1 TABLET BY MOUTH ONCE DAILY 02/01 completed Not Available Not Available Not Available Symbicort 80 mcg-4.5 mcg/actuati on HFA aerosol inhaler INHALE 2 PUFFS BY MOUTH TWICE DAILY --RINSE MOUTH AFTER USE-- use with spacer 12/05 completed Not Available Not Available Not Available peg 3350-electr olytes 236 gram-22.74 gram-6.74 gram-5.86 gram solution MIX DIRECTED AND DRINK 240 ML (8 OUNCES) BY MOUTH EVERY 10 MINUTES UNTIL FECAL EFFLUENT IS CLEAR OR OTHERWISE DIRECTED DO NOT EXCEED TOTAL VOLUME OF 4000 ML 12/05 completed Not Available Not Available Not Available FeroSul 325 mg (65 mg iron) tablet TAKE 1 TABLET BY MOUTH TWICE DAILY 09/11 completed Not Available Not Available Not Available diclofenac 1 % topical gel APPLY 4 grams TOPICALLY TO THE AFFECTED AREA(S) FOUR TIMES DAILY NEEDED FOR PAIN; Apply TO heel, ankle, AND foot (includes soles/toe s/top of foot) 12/05 completed Not Available Not Available Not Available dapsone 5 % topical gel APPLY THIN LAYER TOPICALLY TO AFFECTED AREA ONCE DAILY 12/05 completed Not Available Not Available Not Available Savella 12.5 mg tablet TAKE ONE TABLET BY MOUTH EVERY DAY active Not Available Not Available No t Available Gavilyte-C 240 gram-22.72 gram-6.72 gram-5.84 gram oral solution USE DIRECTED PER OFFICE DIRECTION S 12/05 completed Not Available Not Available Not Available Xifaxan 550 mg tablet Take 1 tablet 3 times a day by oral route for 14 days. 09/11 completed Not Available Not Available Not Available Probiotic 09/11 completed Not Available Not Available Not Available Dymista 137 mcg-50 mcg/spray nasal spray INSTILL ONE SPRAY IN EACH NOSTRIL TWICE DAILY 12/05 completed Not Available Not Available Not Available Dickenson-Linyah 0.25 mg-0.035 mg tablet TAKE 1 TABLET [...] minutes before food or coffee, 30 days 12/05 completed Not Available Not Available Not Available Orilissa 150 mg tablet TAKE ONE TABLET BY MOUTH EVERY DAY 12/05 completed Not Available Not Available Not Available Orilissa 200 mg tablet TAKE ONE TABLET BY MOUTH TWICE DAILY 12/05 completed Not Available Not Available Not Available Christine 0.1 mg/24 hr transdermal patch APPLY 1 PATCH TOPICALLL Y TWICE A WEEK active Not Available Not Available No t Available Gemtesa 75 mg tablet Take 1 tablet every day by oral route. 2024 active Not Available Not Available Not Avai lable Vitals Date Recorded Body height Body mass index (BMI) Body weight Provider Name and Address Organization Details Last Updated DateTime 01/30/2025 157.48 cm 27.6 kg/m2 54386.45 g Dara Lea [facility] & [place] 01/30/2025 09:58:07 Social History Question Answer Notes LastModified by Organizat ion Details LastModified Time Tobacco Smoking Status Former Smoker Henna Lu whelan, AM[facility] - [facility] & [place] 04/13/2022 10:49:53 Do You Have An Advance [...] anxious, or unable to sleep at night)? [id number] Information not available 04/13/2022 Family History Relationship Description Onset Age of this Age Resolved Age Notes LastModified by Organization Details LastModified Time Father No current problems or disability [email or web address] Not available 09:44:54 Mother No current problems or disability [email or web address] Not available 09:44:54 Notes:family hx of cardiac d isease heart failure, [place],CAD, HTN, HLD Medical History No medical history [...] Hep A, adult 2 completed Not Available [facility] 03/16/2023 10:23:08 Hep B, adult 2 completed Not Available [facility] 03/16/2023 10:23:08 Td (adult), 2 Lf tetanus toxoid, preservative free, adsorbed 4 completed Anastasia [place]lan, [place] - [facility] - [place] & [place] 03/11/2022 10:38:45 Tdap 0 completed Anastasia Harris null, [place] - [facility] - [facility] & [place] 03/11/2022 10:38:45 Hep B, adolescent or pediatric 4 completed Anastasia [place] null, [place] - [facility] - [facility] & [place] 03/11/2022 10:38:45 Hep B, adolescent or pediatric 4 completed Anastasia [place] null, [place] - [facility] - [facility] & [place] 03/11/2022 10:38:45 Tdap 9 completed Anastasia [place] null, [place] [facility] [place] & [place] 03/11/2022 10:38:45 Hep B, adult 3 completed Not Available [facility] 03/16/2023 10:23:08 Hep A, adult 3 completed Not Available [facility] 03/16/2023 10:23:08 Hep B, adult 3 completed Not Available [facility] 03/16/2023 10:23:08 Past Encounters Encounter ID Performer Location Encounter Start Date Encounter Closed Date Diagnosis/Indication Diagnosis SNOMED-CT Code Diagnosis ICD10 Code Diagnosis IMO Codes Diagnosis Note [id number] Chandan Griffin Jr, MD [facility] [address] [address] 01/30/2025 09:53:51 01/30/2025 10:30:11 Chronic primary bladder pain syndrome 9730425955 7104 N30.10 [id number] Patient with lower urinary tract symptoms and dyspareuni a. Her urinary symptoms possibly related to interstiti al cystitis. She did not see significan t improvemen t with the Gemtesa. We discussed proceeding with cystoscopy and hydrodiste ntion to evaluate further for interstiti al cystitis as her symptoms would suggested. She will continue the Gemtesa until her cystoscopy with hydrodiste ntion. Health Concerns Section Related Observation LastModified by Organization Detai ls LastModified Time None Recorded Concern Status LastModified by Organization Details LastModified Time None Recorded Payers Encounter Date Sequence Insurance Name Policy Number Policy Fall Covered Member ID Fall Member ID Guarantor Name 01/30/2025 1 [facility] (MEDICAID HMO) [id number] Simone Davila [id number] Simone Davila Notes Date Note Type Note Provider Name and Address Organization Details Recorded Time 01/30/2025 text/html ROS as noted in the HPI 34-year-old white female follows up today for lower urinary tract symptoms of dysuria, bladder pain, dyspareunia, frequency and urgency. She was placed on Gemtesa at our last visit she states some minor help with the urgency but she still has urinary frequency, dysuria and bladder pain. She also has some GI issues and has frequent constipation. She states she has been able to decrease her coffee and tea intake. Previous bladder scan was 44 cc. Past medical history includes history of polycystic ovaries status post hysterectomy and oophorectomy. This was complicated by intra-abdominal abscesses that had to be surgically drained. Chandan Griffin Jr, MD [address] [place] [address], [address], [place], [address] [place] [facility] [place] 01/30/2025 12:54:51 OBGyn Episode No OBEpisode recorded.
--- OUTSIDE RECORDS SUMMARY | 2025-02-08 08:56 | XMS_ITS | Data Portability ---
Author Organization [facility] - [place] - [place] & CHARBEL Caceres ADMIN Address [address] [place] [address] Care Team Providers Care Clinical Research Administrator Name Role Phone GUILHERME CHIANG Primary Care Provider [phone] Assessment Encounter Date Assessment Date Assessment LastModified by Organization Details LastModified Time 08/06/2022 08/06/2022 31-year-old fema le with worsening [...] x14 days for diarrhea -Colonoscopy scheduled 08/26/22 [email or web address] Not available 08/06/2022 13:42:58 09/14/2022 09/14/2022 32-year-old tere donnelly with: worsening abdominal pain, loose stools, and [...] to monitor her liver enzymes. Labs at [facility] last week showed AST elevated at [...] Not available 09/14/2022 13:01:39 03/16/2023 03/16/2023 32-year-old tere donnelly with abdominal pain and alternating bowel habits. [...] 6 weeks to access response to Linzess Not available 03/16/2023 11:13:54 Plan of Treatment Reminders Order Date Submit Date Provider Last Modified By Organization Details Last Modified Time Details Appointments OV EST 15 2024 01:00P M Chandan Griffin Jr, MD Not available Not available Not available Lab urinalysi s, dipstick [address] [facility] [address], [address], 12/05/2024 15:09:45 Referral None recorded. Procedures bladder scan (PROC) [address] [facility] [address], [address], 12/05/2024 15:09:45 Surgeries None recorded. Imaging None recorded. Medication Orders Gemtesa 75 mg tablet [address] [facility], [address] [place] [address], [id number], 12/05/2024 13:16:06 Linzess 72 mcg capsule 2022 023 [email or web address] 1 [facility], [address], [address], 12/05/2024 09:46:07 Xifaxan 550 mg tablet 2022 023 [email or web address] 1 [facility], [address] [place], [address], 12/05/2024 09:43:26 Patient TargetsNo targets recorded. Patient InstructionsNo instructions recorded. Reason for Referral None Reported. Results Created Date Observation Date Name Description Value Unit Range Abnormal Flag Note LastModifiedBy Organization Detail LastModifiedTime 12/06/1912/05/2024 bladd er scan (PROC ) Calculated Residual Urine: 44 ml Not Available [address], [address], 12/05/2024 10:53:28 12/06/19 25 12/05/2024 urina lysis , dipst ick Leukocytes (reference range) negati ve Not Available [address], [address], 12/05/2024 10:52:26 12/06/19 25 12/05/2024 urina lysis , dipst ick Nitrite (reference range:) negati ve Not Available [address], [address], 12/05/2024 10:52:26 12/06/19 25 12/05/2024 urina lysis , dipst ick Urobilinogen (reference range) 0.2 Not Available [address], [address], 12/05/2024 10:52:26 12/06/19 25 12/05/2024 urina lysis , dipst ick Protein (reference range) negati ve Not Available Chaitanya [address], [address], 12/05/2024 10:52:26 12/06/19 25 12/05/2024 urina lysis , dipst ick pH (reference range 5-8.5) 5.5 Not Available [address], [address], 12/05/2024 10:52:26 12/06/19 25 12/05/2024 urina lysis , dipst ick Blood (reference range:) negati ve Not Available [address], [address], 12/05/2024 10:52:26 12/06/19 25 12/05/2024 urina lysis , dipst ick Specific Burke (reference range) 1.005 Not Available [address], [address], 12/05/2024 10:52:26 12/06/19 25 12/05/2024 urina lysis , dipst ick Ketone (reference range) negati ve Not Available [address], [address], 12/05/2024 10:52:26 12/06/19 25 12/05/2024 urina lysis , dipst ick Bilirubin (reference range) negati ve Not Available [address], [address], 12/05/2024 10:52:26 12/06/19 25 12/05/2024 urina lysis , dipst ick Glucose (reference range) negati ve Not Available [address], [address], 12/05/2024 10:52:26 12/06/19 25 12/05/2024 urina lysis , dipst ick Color (reference range: yellow-brown ) Yellow Not Available [facility] [address], [place], [address], 12/05/2024 10:52:26 Result Notes None recorded. Problems Name Problem SNOMED Code Status Onset Date Resolution Date Notes Provider Name and Address Organization Details Recorded Time Abdominal pain 73207574 Active 2022 Henna Leigh null, [place] - [facility] [place] & [place] 3 10:58:39 Chest pain 34655645 Active 2022 Henna Leigh null[place] [facility] [place] 3 10:58:44 Dyspnea on exertion 09584742 Active 2022 Matthew Gordon MD [address] [facility], [place], [address] , [place] [facility] [place] & [place] 3 11:36:06 Cyst of ovary 37615069 Active 2022 Anastasia Harris null, [place] [facility] [place] & [place] 3 10:10:19 Loose stool 872893173 Active 2022 Joe Salmeron PA-C [address] , [place], [address] , [place] [facility] [place] & [place] 3 10:23:14 Pain associated with defecation 042197943 Active 2022 Joe Salmeron PA-C [address], [place], [address] , [place] [facility] [place] & [place] 3 10:23:19 Homogeneous antinuclear antibody pattern 425952587 Active 2022 Joe Salmeron PA-C [address], [place], [address] , [place] [facility] [place] & [place] 3 10:24:55 Colitis 71507055 Active 2022 Joe Salmeron PA-C [address], [place], [address] , [place] [facility] [place] 3 10:32:51 Increased liver function 13972375 Active 2022 Joe Salmeron PA-C [address], [place], [address] , [place] [facility] [place] 3 10:50:40 Non-alcoholic fatty liver 930561510 Active 2022 Joe Salmeron PA-C [address], [place], [address] , [place] [facility] [place] & [place] 3 10:50:44 Irritable bowel syndrome with diarrhea 846560459 Active 2022 Joe Salmeron PA-C [address], [place], [address] , [place] [facility] [place] & [place] 3 11:07:26 Chronic idiopathic constipation 77981186 Active 2022 Joe Salmeron PA-C [address], [place], [address] , [place] [facility] [place] & [place] 3 11:06:57 Problem Notes None recorded. Procedures Surgical History Date Name Laterality Status Provider Name and Address Organization Details Recorded Time 04/11/19 23 Abdominal Surgery completed Blanca CLARK - [facility] & [place] 04/29/2022 10:59:15 04/11/19 23 Hysterectomy completed Anastasia CLARK - [facility] & [place] 07/27/2022 10:07:32 04/11/19 22 Abdominal Surgery completed Blanca CLARK - [facility] - [place] & [place] 04/29/2022 10:59:14 02/19/20 21 Date of Last Pap Smear completed Henna CLARK - [facility] - [place] & [place] 04/13/2022 10:49:53 04/11/19 21 Abdominal Surgery completed Blanca CLARK - [facility] - [place] & [place] 04/29/2022 10:59:15 04/11/19 21 Other completed Henna CLARK - [facility] - [place] & [place] 04/13/2022 10:49:53 04/11/19 19 Other completed Henna BARGER - [place] & [place] 04/13/2022 10:49:53 04/11/19 16 Other completed Henna BARGER - [place] & [place] 04/13/2022 10:49:53 04/11/19 15 Abdominal Surgery completed Blanca BARGER - [place] & [place] 04/29/2022 10:59:14 04/11/19 14 Gastrointestinal Surgery completed Henna BARGER - [place] & [place] 04/13/2022 10:49:53 04/11/19 13 Other completed Henna BARGER - [place] & [place] 04/13/2022 10:49:53 Imaging Results None recorded. Procedure Notes None recorded. Medical Equipment None Reported. Allergies Allergen ID Allergen Name Allergen Category Reaction Reaction Severity Criticality Documentation Date Start Date Code Code System Note Provider Name and Address Organization Details Recorded Time 35670 latex environme nt,medica tion Not available Not available Not available 04/13/2022 06631 91 RxNorm Blanca whelan, [facility] & [place] 3 10:59:09 20218 rubber, unspecifi ed environme nt,medica tion Not available Not available Not available 04/20/2022 Blanca whelan, [facility] & [place] 3 10:59:09 91247 Latex (substanc e) environme nt,medica tion Not available Not available Not available 04/29/2022 72253 8007 SNOMED Blanca whelan, [facility] [facility] & [place] 3 10:59:09 Medications Name Sig Start Date [...] Not Available Not Available Not Available metoclopram marielena 5 mg tablet TAKE ONE TABLET BY [...] completed Not Available Not Available Not Available Montague-Linyah 0.25 mg-0.035 mg tablet TAKE 1 TABLET [...] completed Not Available Not Available Not Available Chritsine 0.1 mg/24 hr transdermal patch APPLY 1 PATCH TOPICALLL Y TWICE A WEEK active Not Available Not Available No t Available Gemtesa 75 mg tablet Take 1 tablet every day by oral route. 2024 active Not Available Not Available Not Avai lable Vitals Date Recorded Body height Heart rate Systolic And Diastolic Provider Name and Address Organization Details Last Updated DateTime 08/06/2022 165.1 cm 78 /min 110/78 mm[Hg] Anastasia Harris [facility] & [place] 08/06/2022 10:14:43 Date Recorded Body height Body mass index (BMI) Body weight Oxygen saturation Oxygen saturation in Arterial blood by Pulse oximetry Heart rate Systolic And Diastolic Provider Name and Address Organization Details Last Updated DateTime 157.48 cm 26.5 kg/m2 63330.2 5 g 96 % 96 % 63 /min 92/66 mm[Hg] Allie Ornelas [facility] & [place] 10:40:15 Date Recorded Body height Body mass index (BMI) Body weight Provider Name and Address Organization Details Last Updated DateTime 12/05/2024 157.48 cm 27.6 kg/m2 32230.45 g Cinthya Reinoso [facility] & [place] 12/05/2024 09:43:23 Date Recorded Body height Body mass index (BMI) Body weight Provider Name and Address Organization Details Last Updated DateTime 01/30/2025 157.48 cm 27.6 kg/m2 97607.45 g Dara Leonora [facility] & [place] 01/30/2025 09:58:07 Date Recorded Body height Body mass index (BMI) Body weight Body temperature Oxygen saturation Oxygen saturation in Arterial blood by Pulse oximetry Heart rate Heart rate Systolic And Diastolic Provider Name and Address Organization Details Last Updated DateTime 157.48 cm 25.4 kg/m2 05688.7 g 97.3 [degF] 98 % 98 % 78 /min 79 /min 100/69 mm[Hg] Radha Ryan [facility] & [place] 3 10:33:24 Social History Question Answer Notes LastModified by Organizat ion Details LastModified Time Tobacco Smoking Status Former Smoker Henna Leigh [facility], [place] - [facility] [place] & [place] 04/13/2022 10:49:53 Do You Have An Advance [...] Functional Status Question Answer Note LastModified by [employer] Details LastModified Time Do you use any [...] anxious, or unable to sleep at night)? [id number] Information not available 04/13/2022 Family History Relationship Description Onset Age of this Age Resolved Age Notes LastModified by Organization Details LastModified Time Father No current problems or disability [email or web address] Not available 09:44:54 Mother No current problems or disability [email or web address] Not available 09:44:54 Notes:family hx of cardiac d isease heart failure, [place],CAD, HTN, HLD Medical History No medical history [...] Immunizations Vaccine Type Date Status Note Provider Rick e and Address Organization Details Recorded Time Hep A, adult 2 completed Not Available [facility] 03/16/2023 10:23:08 Hep B, adult 2 completed Not Available [facility] 03/16/2023 10:23:08 Td (adult), 2 Lf tetanus toxoid, preservative free, adsorbed 4 completed Anastasia Harris null, [place] [facility] [place] 03/11/2022 10:38:45 Tdap 0 completed Anastasia [place] [facility] 03/11/2022 10:38:45 Hep B, adolescent or pediatric 4 completed Anastasia [place] [facility] [place] 03/11/2022 10:38:45 Hep B, adolescent or pediatric 4 completed Anastasia [place] [facility] [place] 03/11/2022 10:38:45 Tdap 9 completed Anastasia [place] [facility] [place] 03/11/2022 10:38:45 Hep B, adult 3 completed Not Available [facility] 03/16/2023 10:23:08 Hep A, adult 3 completed Not Available [facility] 03/16/2023 10:23:08 Hep B, adult 3 completed Not Available [facility] 03/16/2023 10:23:08 Past Encounters Encounter ID Performer Location Encounter Start Date Encounter Closed Date Diagnosis/Indication Diagnosis SNOMED-CT Code Diagnosis ICD10 Code Diagnosis IMO Codes Diagnosis Note [id number] Sharmin Mckeon NP [facility] [address] [address] 01/07/2022 10:52:25 01/07/2022 11:35:01 Liver enzymes level above reference range 749842713 R74.01 Will check labs. Avoid alcohol and NSAIDs. Liver ultrasound ordered. Follow-up in 4 weeks. [id number] Sharmin Mckeon NP [facility] [address] [place] [address] 02/04/2022 09:56:34 02/04/2022 10:46:05 Steatotic liver disease 765581276 K76.0 - CAM fibrosure S1-S2- did have an episode of binge drinking for several months which has resolved and she no longer drinks alcohol- will initiate hepatitis- A and B vaccine series today- follow-up in 6 months (2 months for #2 Hep B vaccinatio n) [id number] Richard Connor MD [facility] [address] [place] [address] 02/11/2022 10:51:15 02/11/2022 11:10:33 [id number] Matthew Gordon MD [facility] [place] [address] [facility] [address] [place] [address] 04/13/2022 10:48:34 04/13/2022 11:39:07 Dyspnea on exertion 08391542 R06.09 Will obtain echocardio gram to evaluate EF pulmonary pressure and diastolic function [id number] Sharmin Mckeon NP [facility] [address] [address] 04/20/2022 09:55:48 04/20/2022 10:53:06 Steatotic liver disease 342398780 K76.0 - CAM fibrosure S1-S2- did have an episode of binge drinking for several months which has resolved and she no longer drinks alcohol- will initiate hepatitis- A and B vaccine series today- follow-up in 6 months (2 months for #2 Hep B vaccinatio n) Anemia 165281910 D64.9 - Continue Iron supplement s- Last hgb done 04/13 was 9.2, recheck today- Will call with results CT of abdo men abnormal 1681726913 3024010 R93.5 - wall thickening and inflammati on of terminal ileum noted- consider colonoscop y in the future pending repeat abd ct scan- advised patient to call and schedule appointmen t after her abdominal CT scan for follow-up [id number] Joe Salmeron PA-C [facility] [address] [address] 04/28/2022 11:20:50 04/28/2022 11:57:40 Administration of viral vaccine 29015465 Z23 [id number] Joe Salmeron PA-C [facility] [address] [address] 07/27/2022 09:23:19 07/27/2022 10:36:04 Abdominal pain 03804295 R10.9 Loose stool 536196091 R1 9.5 Pain assoc iated with defecation 501582045 K62.89 Darcyou s antinuclear antibody pattern 821238588 R76.8 Colitis 81313986 K52.9 Viral hepa titis A vaccination given 9967731247 9105 Z23 Viral hepa titis B vaccination given 5765188141 9103 Z23 Increased liver function 06504505 R94.5 Non-alcoho lic fatty liver 112169675 K76.0 [id number] Joe Salmeron PA-C [facility] [address] [address] 08/06/2022 09:59:21 08/06/2022 12:23:34 Abdominal pain 13562432 R10.9 Loose stool 797254025 R1 9.5 Pain assoc iated with defecation 708916535 K62.89 Homogeneou s antinuclear antibody pattern 624233872 R76.8 Colitis 50327576 K52.9 Increased liver function 30853771 R94.5 Non-alcoho lic fatty liver 501349220 K76.0 Irritable bowel syndrome with diarrhea 061921521 K58.0 [id number] Joe Salmeron PA-C [facility] [address] [address] 09/14/2022 10:31:22 09/14/2022 11:11:54 Abdominal pain 33966137 R10.9 Loose stool 320625725 R1 9.5 Pain assoc iated with defecation 673549060 K62.89 Homogeneou s antinuclear antibody pattern 439221796 R76.8 Colitis 16167034 K52.9 Increased liver function 24740383 R94.5 Non-alcoho lic fatty liver 105142993 K76.0 Irritable bowel syndrome with diarrhea 118803240 K58.0 [id number] Joe Salmeron PA-C [facility] [address] [facility] [address] [place] [address] 03/16/2023 10:22:01 03/16/2023 11:06:50 Abdominal pain 84572252 R10.9 Loose stool 314429065 R1 9.5 Pain assoc iated with defecation 165608133 K62.89 Homogene s antinuclear antibody pattern 315105919 R76.8 Colitis 46239487 K52.9 Increased liver function 45580107 R94.5 Non-alcoho lic fatty liver 033462414 K76.0 Irritable bowel syndrome with diarrhea 968614952 K58.0 Chronic id iopathic constipation 82046572 K59.04 [id number] Chandan Griffin Jr, MD [facility] [place] [address] 12/05/2024 09:29:38 12/05/2024 10:34:04 Chronic primary bladder pain syndrome 9617740986 7104 N30.10 [id number] Patient with lower urinary tract symptoms, dyspareuni a. Her urinary symptoms possibly related to interstiti al cystitis. We discussed treatment options and we will be conservati ve to begin with medication s for lower urinary tract symptoms and dietary measures. She will return in 6 weeks. Her symptoms are not better we have discussed proceeding with cystoscopy and hydrodiste ntion. 30 minutes spent with the patient in consultati on today. Samples of Gemtesa and intra Sylvia vaginal suppositor ies given today. [id number] Chandan Griffin Jr, MD [facility] [address] [address] 01/30/2025 09:53:51 01/30/2025 10:30:11 Chronic primary bladder pain syndrome 7922398006 7104 N30.10 [id number] Patient with lower urinary tract symptoms and [...] Member ID Fall Member ID Guarantor Name 02/05/2025 1 [employer] [place] ([place]ICA[place]MO[place] [id number] Simone Davila [id number] Simone Davila 10/29/2023 1 [employer] [place] Simone Davila [id number] Simone Davila Notes Date Note Type Note Provider Name and Address Organization Details Recorded Time 08/06/2022 text/html PREVIOUS (07/27/22 Hardik Salmeron): Ms. Davila is a pleasant [...] with wearing her glasses. Joe Salmeron PA-C [address], [place], [address], [facility] - [place] - [place] & [place] 08/06/2022 13:43:16 09/14/2022 text/html PREVIOUS (07/27/22 Hardik Salmeron): Ms. Davila is a pleasant [...] She was seen in the ED at [facility] last week due to acute abdominal pain and underwent CT with evidence of possible ovarian cyst vs. abscess. She states that she received antibiotics for possible sepsis. She is doing okay today. Her bowel habits are regulated better since the colonoscopy. She is schedule for follow-up with gynecology tomorrow Joe Salmeron PA-C [address], [place], [address], [place] [facility] [place] 09/14/2022 13:01:54 03/16/2023 text/html PREVIOUS (07/27/22 Hardik Salmeron): Ms. Davila is a pleasant [...] She was seen in the ED at [facility] last week due to acute abdominal [...] She had a CT abd/pelvis performed at [facility] on 02/25/23 that showed a low-lying cecum and left adnexal cysts. She notes frequent abdominal bloating. Joe Salmeron PA-C [address], [place], [address], [place] [facility] [place] 03/16/2023 11:14:10 12/05/2024 text/html ROS as noted in the HPI Patient is 34-year-old white female referred for lower urinary tract symptoms. Patient with urinary symptoms of bladder pain, dyspareunia, frequency, urgency occasional dysuria. She also has some GI issues and she is being treated for. She also has a history of polycystic ovary status post hysterectomy and oophorectomy. Primary care visit notes were reviewed from 09/21/2024. Urinalysis and urine culture at that time showed no evidence of infection. CT and ultrasound have been performed showing no evidence of urologic abnormalities. Patient is not on medications for her urinary symptoms. She is unsure as whether any dietary food stuffs cause increase in symptoms. She does drink a lot of coffee and tea during her day. Bladder scan today is 44 cc. Chandan Griffin Jr, MD [address] [place] [address], [address], [place], [address], [place] - [facility] & [place] 12/05/2024 13:17:40 01/30/2025 text/html ROS as noted in the [...] be surgically drained. Chandan Griffin Jr, MD [address] [place] [address], [address], [place], [address], [place] [facility] [facility] & [place] 01/30/2025 12:54:51 OBGyn Episode No OBEpisode recorded.
--- OUTSIDE RECORDS SUMMARY | 2025-02-08 08:56 | XMS_ITS | Encounter Summary ---
Author Organization Healthcare Address [address] [id number] Care Team Providers Care Management Planner Name Role Phone Sharmin Awad Hugo QUIGLEY Primary Care Provider [phone] Encounter Details Date Type Department Care Team (Late st Contact Info) Description 08/29/2023 Orders Only External Location [address] [place] [address] Adriana Mathews [address] [id number] Social History Tobacco Use Types Packs/Day Years [...] often do you attend chur ch or latter-day services? Never 10/15/2020 Do you belong to any clubs o r organizations such as rastafari groups, unions, fraternal or athletic groups, or [...] Recorded Patient Health Questionnaire-2 Score 0 11/23/2022 [facility] - Occupational Stress Questionnaire Answer [...] in a intermediate (including now)? No 10/15/2020 PHQ-2A Answer Date [...] ce 08/29/2023 8:34 AM EDT Adriana Mathews [facility] MRI PROCEDURES Final Result documented in this [...] documented as of this encounter Care Teams Management Planner Relationship Specialty Start Date End Date Sharmin Awad APRN [address] [address] PCP - General Family Medicine 10/18/22 documented as of this encounter
--- OUTSIDE RECORDS SUMMARY | 2025-02-08 08:56 | XMS_ITS | Clinical Summary ---
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
--- OUTSIDE RECORDS SUMMARY | 2025-02-08 08:56 | XMS_ITS | Encounter Summary ---
Author Organization Healthcare Address [address] [place] [address] Care Team Providers Care Clinical Nursing Professor Name Role Phone Sharmin Awad Hugo QUIGLEY Primary Care Provider [phone] Encounter Details Date Type Department Care Team (Late st Contact Info) Description 01/02/2025 Orders Only External Location [address] [place] [address] Allie Medina, DO [address] [place] [address] Social [...] Recorded Patient Health Questionnaire-2 Score 0 05/16/2024 [facility] - Occupational Stress Questionnaire Answer [...] documented as of this encounter Care Teams Clinical Nursing Professor Relationship Specialty Start Date End Date Sharmin Awad APRN [address] [place] [address] PCP - General Family Medicine 10/18/22 documented as of this encounter
--- OUTSIDE RECORDS SUMMARY | 2025-02-08 08:56 | XMS_ITS | Encounter Summary ---
Author Organization Healthcare Address [address] [place] [address] Care Team Providers Care Aluminizer Name Role Phone Marsha Mora APRN Primary Care Provider [phone] Sharmin Awad APRN Primary Care Provider [phone] Encounter Details Date Type Department Care Team (Late st Contact Info) Description 04/11/2022 Outside Procedure External Location [address] [place] [address] Provider, Nithin Victor Social History Tobacco Use [...] Recorded Patient Health Questionnaire-2 Score 4 11/26/2021 [facility] Occupat ional Health - [...] place to sleep or slept in a assisted (including now)? No 10/15/2020 Comments No Sex [...] PM EST Narrative 04/11/2022 6:50 PM EST [address] [place] [address] Name: RUTH RAMOSY Exam Date: 04/11/2022 : 1990 Age 31 Gender: F Physician: HERBERT HERNANDEZ Facility: [facility] Facility HSV: [...] for referring JAMES RAMOS to [facility]. Legally authenticated by ZULEYMA Gayle III 2022-04-11 18:37:58 Procedure Note Provider, Nithin [place] - 04/11/2022 [facility] [address] [place] [address] Name: JAMES RAMOS Exam Date: 04/11/2022 : 1990 Age 31 Gender: F Physician: HERBERT HERNANDEZ Facility: [facility] Facility HSV: [...] for referring JAMES RAMOS to [facility]. Legally authenticated by ZULEYMA Gayle III 2022-04-11 18:37:58 us Generic [place] Provider IMG CT PROCEDURES Fi nal Result [...] documented as of this encounter Care Teams Aluminizer Relationship Specialty Start Date End Date Marsha Mora APRN [address] [place] [address] PCP - General 08/22/20 10/17/22 Sharmin Awad APRN [address] [place] [address] PCP - General Family Medicine 10/18/22 documented as of this encounter
--- OUTSIDE RECORDS SUMMARY | 2025-02-08 08:56 | XMS_ITS | Encounter Summary ---
Author Organization Healthcare Address [address] [place] [address] Care Team Providers Care Candlemaker Name Role Phone RiteshSharmin Hugo QUIGLEY Primary Care Provider [phone] Encounter Details Date Type Department Care Team ([facility] Contact Info) Description 09/20/2024 Orders Only External Location [address] [place] [address] Provider, External Social History Tobacco Use Types [...] often do you attend chur ch or taoist services? Never 10/15/2020 Do you belong to any clubs o r organizations such as sikhism groups, unions, fraternal or athletic groups, or [...] Recorded Patient Health Questionnaire-2 Score 0 05/16/2024 [facility] of Occupat ional Health - [...] in a custodial (including now)? No 10/15/2020 PHQ-2A Answer Date [...] Radiographic Kamini ging 09/20/2024 8:37 AM EDT External Provider IMG XR PROCEDURES Final Result [...] documented as of this encounter Care Teams Candlemaker Relationship Specialty Start Date End Date Sharmin Awad APRN [address] [place] [address] PCP - General Family Medicine 10/18/22 documented as of this encounter
--- OUTSIDE RECORDS SUMMARY | 2025-02-08 08:56 | XMS_ITS | Encounter Summary ---
Author Organization Healthcare Address [address] [place] [address] Care Team Providers Care Histology Specialist Name Role Phone Marsha Mora APRN Primary Care Provider [phone] Sharmin Awad APRN Primary Care Provider [phone] Encounter Details Date Type Department Care Team (Late st Contact Info) Description 04/11/2022 Outside Procedure External Location [address] [place] [address] Provider, Nithin Victor Social History Tobacco Use [...] any clubs o r organizations such as congregational groups, unions, fraternal or athletic groups, or [...] Patient Health Questionnaire-2 Score 4 11/26/2021 [facility] Occupat ional Health - Occupational [...] PM EST Narrative 04/12/2022 8:53 [place] [address] Name: JAMES RAMOS Exam Date: 04/11/2022 : 1990 Age 31 Gender: F Physician: HERBERT HERNANDEZ Facility: [facility] Facility HSV: Outpatient Exam: CHEST [...] to [facility]. Legally authenticated by POPE JAMES Arias 2022-04-12 08:42:01 Procedure Note Provider, [facility] 04/12/2022 [place] [address] Name: JAMES RAMOS Exam Date: 04/11/2022 : 1990 Age 31 Gender: F Physician: HERBERT HERNANDEZ Facility: [facility] Facility HSV: Outpatient Exam: CHEST [...] to [facility]. Legally authenticated by POPE JAMES Arias 2022-04-12 08:42:01 Generic [place] Provider IMG XR PROCEDURES Fi nal Result documented in this encounter Visit Diagnoses Not on filedocumented in this encounter Additional Health Concerns Infection Onset Date Last Indicated Resolved Time C. difficile Rule-Out 12/20/2023 12/20/20234 5:23 AM EDT Assessment Noted Time PHQ-9 Depression Total Score: 14 022 9:46 AM EDT A fall risk assessment has been complete d for the patient 11/26/2021 9:47 AM EDT documented as of this encounter Care Teams Histology Specialist Relationship Specialty Start Date End Date Marsha Mora APRN [address] [place] [phone] PCP - General 08/22/20 10/17/22 Sharmin Awad APRN [address] [address] PCP - General Family Medicine 10/18/22 documented as of this encounter
--- OUTSIDE RECORDS SUMMARY | 2025-02-08 08:57 | XMS_ITS | Encounter Summary ---
Author Organization Healthcare Address [address] [place] [address] Care Team Providers Care Substitute Crossing Guard Name Role Phone Abby Marsha Nalini QUIGLEY Primary Care Provider [phone] Sharmin Awad APRN Primary Care Provider [phone] Encounter Details Date Type Department Care Team (Late st Contact Info) Description 08/09/2022 Outside Procedure External Location [address] [place] [address] Adarsh Gan MD [address] [place] [address] Social History Tobacco Use Types Packs/Day [...] How often do you attend chur or lutheran services? Never 10/15/2020 Do you belong to any clubs o r organizations such as latter-day groups, unions, fraternal or athletic groups, or [...] Recorded Patient Health Questionnaire-2 Score 0 07/29/2022 [facility] of Occupat ional Health - [...] PM EDT Narrative 08/09/2022 3:00 [place] [address] Name: JAMES RAMOS Exam Date: 08/09/2022 : 1990 Age 31 Gender: F Physician: ADARSH GAN Facility: [facility] Facility HSV: Outpatient Exam: CT ABD [...] to [facility]. Legally authenticated by JESS CABALLERO 2022-08-09 14:49:49 Procedure Note Provider, Generic [place] - 08/09/2022 [place] [address] Name: JAMES RAMOS Exam Date: 08/09/2022 : 1990 Age 31 Gender: F Physician: ADARSH GAN Facility: [facility] Facility HSV: Outpatient Exam: CT ABD [...] to [facility]. Legally authenticated by JESS CABALLERO 2022-08-09 14:49:49 [...] documented as of this encounter Care Teams Substitute Crossing Guard Relationship Specialty Start Date End Date Marsha Mora APRN [address] [place] [phone] PCP - General 5/14/21 7/9/23 Sharmin Awad APRN [address] [place] [address] PCP - General Family Medicine 10/18/22 documented as of this encounter
--- OUTSIDE RECORDS SUMMARY | 2025-02-08 08:57 | XMS_ITS | Encounter Summary ---
Author Organization [facility] Address [address] [place] [address] Care Team Providers Care Hoop Bending Machine Operator Name Role Phone Sharmin Awad Hugo QUIGLEY Primary Care Provider [phone] Encounter Details Date Type Department Care Team (Latest Contact Info) Description 02/05/2025 Travel Social History Tobacco Use Types Packs/Day Years [...] any clubs o r organizations such as jain groups, unions, fraternal or athletic groups, or [...] Recorded Patient Health Questionnaire-2 Score 0 05/16/2024 [facility] of Occupat ional Health - Occupational Stress [...] in a long-term (including now)? No 10/15/2020 PHQ-2A Answer Date [...] on file documented as of this encounter Visit Diagnoses [...] documented as of this encounter Care Teams Hoop Bending Machine Operator Relationship Specialty Start Date End Date Sharmin Awad APRN [address] [facility] [phone] PCP - General Family Medicine 10/18/22 documented as of this encounter
--- OUTSIDE RECORDS SUMMARY | 2025-02-08 08:57 | XMS_ITS | Encounter Summary ---
Author Organization [facility] Address [address] [place] [address] Care Team Providers Care Machine Rigger Name Role Phone Sharmin Awad Hugo QUIGLEY Primary Care Provider Encounter Details Date Type Department Care Team ([facility] Contact Info) Description 01/08/2025 Telephone Medical Office Building Surgery Spine & Joint [address] [facility], [address] [place] [address] Britany Núñez PA [address] [place] [address] Social History Tobacco Use Types [...] How often do you attend chur or confucianism services? Never 10/15/2020 Do you belong to any clubs o r organizations such as confucianism groups, unions, fraternal or athletic groups, or [...] Recorded Patient Health Questionnaire-2 Score 0 05/16/2024 [facility] Questionnaire [...] a skilled nursing (including now)? No 10/15/2020 PHQ-2A Answer Date [...] 01/08/2025 3:27 PM EDT FAXED APPT 02/05/25 1845A [employer]ERT[employer] PR[employer]/FER [employer] documented in this encounter [...] documented as of this encounter Care Teams Machine Rigger Relationship Specialty Start Date End Date Sharmin Awad, COURT ABSTRACTOR [address] [place] [address] PCP - General Family Medicine 10/18/22 documented as of this encounter
--- OUTSIDE RECORDS SUMMARY | 2025-02-08 08:57 | XMS_ITS | Encounter Summary ---
Author Organization Healthcare Address [address] [place] [address] Care Team Providers Care Assistant Field Hockey Coach Name Role Phone Marsha Mora APRN Primary Care Provider [phone] Sharmin Awad APRN Primary Care Provider [phone] Encounter Details Date Type Department Care Team (Late st Contact Info) Description 05/07/2022 Outside Procedure External Location [address] [place] [address] Provider, Nithin Victor Social History Tobacco Use [...] Patient Health Questionnaire-2 Score 4 11/26/2021 [facility] of Occupat ional Health - Occupational [...] PM EST Narrative 05/07/2022 2:55 PM EST [address] [place] [address] Name: RUTH RAMOSY Exam Date: 05/07/2022 : 1990 Age 31 Gender: F Physician: JUANCARLOS SALDAÑA Facility: [facility] Facility HSV: Outpatient Exam: CT ABD [...] Thank you for referring JAMES RAMOS to [facility]. Legally authenticated by JESS CABALLERO 2022-05-07 14:43:47 Procedure Note Provider, Generic [place] - 05/07/[address] [address] Name: JAMES RAMOS Exam Date: 05/07/2022 : 1990 Age 31 Gender: F Physician: JUANCARLOS SALDAÑA Facility: [facility] Facility HSV: Outpatient Exam: CT ABD [...] Thank you for referring JAMES RAMOS to [facility]. Legally authenticated by JESS CABALLERO 2022-05-07 14:43:47 Generic [place] Provider IMG CT PROCEDURES Fi nal Result [...] as of this encounter Care Teams Assistant Field Hockey Coach Relationship Specialty Start Date End Date Marsha Mora APRN [address] [place] [address] PCP - General 08/22/20 10/17/22 Sharmin Awad APRN [address] [place] [address] PCP - General Family Medicine 10/18/22 documented as of this encounter
--- OUTSIDE RECORDS SUMMARY | 2025-02-08 08:57 | XMS_ITS | Clinical Summary ---
[facility] Address [address] [place] [address] Care Team Providers Care Conveyor Belt Installer Name Role Phone MoiseNilda SORAIDA Primary Care Provider [phone] Allergies Active Allergy Reactions Criticality Noted Date [...] 11/23/2022, 12/15/2021 Insurance [employer] Care Teams Conveyor Belt Installer Relationship Specialty Start Date End Date Nilda Phipps APRN [address] [place] [address] PCP - General Internal Medicine 10/25/23
--- OUTSIDE RECORDS SUMMARY | 2025-02-08 08:57 | XMS_ITS | Encounter Summary ---
Author Organization Healthcare Address [address] [place] [address] Care Team Providers Care Artificial Stone Setter Name Role Phone AbbyMarsha english Nalini QUIGLEY Primary Care Provider Sharmin Awad APRN Primary Care Provider [phone] Encounter Details Date Type Department Care Team (Late st Contact Info) Description 04/26/2022 Outside Procedure External Location [address] [place] [address] Carter Conner MD [address] [place] [address] Social History Tobacco Use Types [...] How often do you attend chur or faith services? Never 10/15/2020 Do you belong to any clubs o r organizations such as adventism groups, unions, fraternal or athletic groups, or [...] Recorded Patient Health Questionnaire-2 Score 4 11/26/2021 [facility] of Occupat ional Health - Occupational [...] PM EST Narrative 04/26/2022 2:56 [place] [address] Name: JAMES RAMOS Exam Date: 04/26/2022 : 1990 Age 31 Gender: F Physician: CARTER CONNER Facility: [facility] Facility [...] [facility]. Legally authenticated by POPE JAMES Arias 2022-04-26 14:45:02 Procedure Note Provider, Nithin [place] - 04/26/2022 [facility] [address] [place] [address] Name: JAMES RAMOS Exam Date: 04/26/2022 : 1990 Age 31 Gender: F Physician: CARTER CONNER Facility: [facility] Facility [...] [facility]. Legally authenticated by POPE JAMES [...] documented as of this encounter Care Teams Artificial Stone Setter Relationship Specialty Start Date End Date Marsha Mora APRN [address] [place] [address] PCP - General 08/22/20 10/17/22 Sharmin Awad, RESEARCH ASSOCIATE MOLECULAR BIOLOGY [address] [place] [address] PCP - General Family Medicine 10/18/22 documented as of this encounter
--- OUTSIDE RECORDS SUMMARY | 2025-02-08 08:57 | XMS_ITS | Clinical Summary ---
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 Stevenson's the ED physician in [place] told him that the ultrasound was normal. [...] answers, or a second opinion with another TELECOMMUNICATIONS LINESWORKER and surgeon could be beneficial to help [...] abscess. - I called radiology yesterday at [facility] to discuss drain placement - they are [...] Encounters Date Type Department Care Team Description 02/05/2025 11:40 AM EDT Office Visit Medical Office Building Surgery Spine & Joint [address] [facility], [address] [place] [address] Britany Núñez PA Lumbar spine pain (Primary Dx) 02/05/2025 11:39 AM EDT - 02/05/2025 11:59 PM EDT Hospital Encounter Medical Office Building Radiology [address] [place] [address] Degeneration of intervertebral disc of lumbar region, unspecified whether pain present Discharge Disposition: Home or Self Care 02/05/2025 Travel 01/08/2025 Telephone Medical Office Building Surgery [facility] [address] [facility], [address] [place] [address] Britany Núñez PA 01/08/2025 Telephone Medical Office Building Surgery Sp[facility] [address] [facility], [address] [place] [address] Britany Núñez PA 01/02/2025 Orders Only External Location [address] [place] [address] Allie Medina, DO from Last 3 Months Immunizations Immunization [...] Status Comments Father William Davila Mother Abdoulaye Jones Blaise Mother's Sister 1 Marsha Novoa Blaise Mother's Sister 2 Abdoulaye Jones Blaise Sister [...] week 10/15/2020 How often do you attend [facility] or hinduism services? Never 10/15/2020 Do you belong to any clubs o r organizations such as hoahaoism groups, unions, fraternal or athletic groups, or [...] Patient Health Questionnaire-2 Score 0 05/16/2024 [facility] of Occupat ional Health [...] in a half-way (including now)? No 10/15/2020 PHQ-2A Answer Date [...] Pulse 97 02/05/2025 11:50 AM EDT Temperature 36.8 C (98.2 F) 05/16/2024 2:02 PM EST Respiratory Rate 16 05/16/2024 2:02 PM EST Oxygen Saturation 98% 02/05/2025 11: 50 AM EDT Inhaled Oxygen Concentration - - Weight 69.3 kg (152 lb 12.5 oz) 025 11:50 AM EDT Height 157.5 cm (5' 2 ) 02/05/2025 11:5 0 AM EDT Body Mass Index 27.94 02/05/2025 11:50 AM EDT Plan of Treatment Health Maintenance Due Date Last Done Comments [facility]-/Child/Adol SDOH Screenings 1990 [id number] Vaccine (#1) 08/12/1996 [facility]-Varicella Vaccines (1 of [...] Additional history exists [facility]-Obesity Intervention Completed 025, 05/16/2024, 11/25/2023, Additional history exists [facility]-Rotavirus Vaccines Aged Out No lo nger eligible based on patient's age to complete this topic Procedures Procedure Name Priority Date/Time Associated Diagnosis Comments XR LUMBAR SPINE 2 OR 3 VIEWS Routine 02/05/2025 11:46 AM EDT Degeneration of intervertebral disc of lumbar region, unspecified whether pain present XR MSK OUTSIDE IMAGES 01/02/2025 9:34 AM EDT ED HIV 1/2 ANTIBODY/ANTIGEN SCREEN WITH REFLEX TO HIV I/II DIFFERENTIATION STAT 12/20/2023 12:07 PM EDT ACUTE HEPATITIS PANEL Routine 06/23/2023 10:22 AM EDT DB positive PAP TEST - CYTOLOGY Routine 03/03/2021 2 :47 PM EST Menorrhagia with regular cycle from Last 3 Months or Most Recently Relevant to Health Maintenance Results * XR Lumbar Spine 2 or [...] HERNANDEZ IMG XR PROCEDURES Final Resu lt * XR MSK OUTSIDE IMAGES (01/02/2025 9:34 AM EDT) Anatomical Region Laterality Modality Radiographic Kamini ging 01/02/2025 9:34 AM EDT us Allie Medina DO IMG XR PROCEDURES Final Result * ED HIV 1/2 Antibody/Antigen Screen w/Reflex to HIV 1/2 Differentiation (12/20/2023 12:07 PM EDT) HIV 1 & 2 Antibody/Antigen Screen Non Reactive Non Reactive 12/20/2023 1:15 PM EDT [facility] Comment:Screening for HIV 1 & 2 antibodies, and P24 antigen is NONREACTIVE. No confirmatory testing is required. Blood Venous blood specimen / Unknown Venipuncture / Unknown 12/20/2023 12:07 PM EDT 12/20/2023 12:32 PM EDT Renetta Lopez MD LAB BLOOD ORDERABLES Final Resu lt [facility] [address] [place] [address] * Acute Hepatitis Panel (06/23/2023 10:22 AM EDT) Hepatitis B Surf Antigen Negative Negative 06/23/2023 12:49 PM EDT [facility] Hepatitis C Antibody Negative Negative 06/23/2023 12:49 PM EDT [facility] Hepatitis A Antibody IgM Negative Negative 06/23/2023 12:49 PM EDT [facility] Hepatitis B Core Antibody IgM Negative Negative 06/23/2023 12:49 PM EDT [facility] Blood Venous blood specimen / Unknown Venipuncture / Unknown 06/23/2023 10:22 AM EDT 06/23/2023 10:22 AM EDT Ginny Gayle Kadeem AIRLINE MECHANIC LAB BLOOD ORDERABLES Final Result [facility] [address] [place] [address] * (ABNORMAL) Pap Smear (03/03/2021 2:47 PM EST) Case Report Cytology Case: [id number] Authorizing Provider: Catrer Conner MD Collected: 03/03/2021 1447 Ordering Location: Obstetrics & Gynecology Received: 03/04/2021 0837 First Screen: Faraz Wild, JAIRO Pathologist: Rose Porter MD Specimen: ThinPrep Pap Test, Liquid-Based Cervical/Vagina l, CERVICAL/VAGINA L 03/16/2021 10:12 AM EST [facility] Interpretation ATYPICAL SQUAMOUS CELLS OF UNDETERMINED SIGNIFICANCE (ASCUS)(A) 03/16/2021 10:12 AM EST [facility] at 1012 EST Specimen Adequacy Satisfactory for evaluation; endocervical/tr ansformation zone component present. Slide imaged by the ThinPrep Imaging system and selected 22 sagastume reviewed then full manual screening. 03/16/2021 10:12 AM EST [facility] Cervical cytology is a screening test [...] results is suggested (please call Microbiology at [phone] for results). 03/16/2021 10:12 AM EST [facility] Menstrual Status Cyclic 03/16/20 10:12 AM EST [facility] History of Hysterectomy Not Applicable 03/16/2021 10:12 AM EST [facility] Contraceptive History Not Applicable 03/16/2021 10:12 AM EST [facility] Last Menstrual Period 01/31/2021 03/16/2021 10:12 AM EST [facility] Clinical Information N92.0 - Menorrhagia with regular cycle [ICD-10-CM] 03/16/2021 10:12 AM EST [facility] Screening Type Routine Screen 2020 10:12 AM EST [facility] High Risk? No 03/16/2021 10:12 AM EST [facility] HPV Testing Requested? Request HPV Testing if ASCUS (Women 25 Years or Older) 03/16/2021 10:12 AM EST [facility] Previous Cancer History No 03/16/2021 10:12 AM EST [facility] Swab Vaginal and cervical cytologic material / Unknown Non-blood Collection / Unknown 03/03/2021 2:47 PM EST 03/04/2021 8:37 AM EST Carter Conner MD LAB CYTOLOGY ORDERABLES Final R esult Performing Organization Address City/State/[facility] Co la Phone Number [facility] [address] [place] [phone] from Last 3 Months or Most Recently Relevant to Health Maintenance Insurance [facility] MEDICAID Care Teams Certified Medical Records Coder Relationship Specialty Start Date End Date Sharmin Awad APRN [address] [place] [address] PCP - General Family Medicine 10/18/22
--- OUTSIDE RECORDS SUMMARY | 2025-02-08 08:57 | XMS_ITS | Encounter Summary ---
Author Organization [facility] Address [address] [place] [address] Care Team Providers Care On Line Csr Name Role Phone Sharmin Awad Hugo QUIGLEY Primary Care Provider [phone] Encounter Details Date Type Department Care Team ([facility] Contact Info) Description 01/08/2025 Telephone Medical Office Building Surgery Spine & Joint [address] [facility], [address] [place] [address] Britany Núñez PA [address] [place] [address] Social History Tobacco Use Types [...] How often do you attend chur or jewish services? Never 10/15/2020 Do you belong to any clubs o r organizations such as quaker groups, unions, fraternal or athletic groups, or [...] Recorded Patient Health Questionnaire-2 Score 0 05/16/2024 [facility]ational Stress Questionnaire Answer [...] in a assisted (including now)? No 10/15/2020 PHQ-2A Answer Date [...] documented as of this encounter Care Teams On Line Csr Relationship Specialty Start Date End Date Sharmin Awad, POULTRY FARMWORKER [address] [place] [address] PCP - General Family Medicine 10/18/22 documented as of this encounter
--- NOTE | 2025-02-08 09:00 | MR_ITS ---
FINAL REPORT CLINICAL HISTORY: left wrist pain concentrate on scaphoid bone, concern for fx COMPARISON: None FINDINGS: Multiplanar MR imaging of the left wrist was performed without contrast. The bony structures are intact without evidence of fracture, bone bruise or marrow edema. Specifically, there is no bone marrow edema present in the scaphoid. No positive or negative ulnar variance is noted. There is no evidence of intrinsic ligament injury. The triangular fibrocartilage is intact. The flexor and extensor tendons are intact. No soft tissue mass or cyst is identified. No focal abnormality is identified of the median nerve. IMPRESSION: No focal injury identified, specifically, there is no bone marrow edema present in the scaphoid. Reviewed, Interpreted and Dictated by Storm Avitia MD Transcribed by Jennifer Salmeron Authenticated and [facility]
== END 2025-02-08 23:59 | disposition home or self-care (01) ==
LOC: RAD 08:47
PROVIDERS: PCP Nurse Practitioner Family; Visit Provider Physician Assistant
DX: S69.92XA Unspecified injury of left wrist, hand and finger(s), initial encounter (principal); M25.532 Pain in left wrist
CPT/HCPCS: 73221

== ENCOUNTER 2025-03-21 09:46 | Outpatient (CLI) | payer MEDICAID, SELFPAY ==
--- NOTE | 2025-03-21 09:48 | XR_ITS ---
FINAL REPORT CLINICAL HISTORY: left wrist pain x 2 mo COMPARISON: 01/22/2025 FINDINGS: LEFT WRIST Three views demonstrate no acute fracture or dislocation. The visualized joint spaces are normally aligned. The soft tissues are unremarkable. IMPRESSION: No acute bony abnormality. Reviewed, Interpreted and Dictated by Storm Avitia MD Transcribed by Tracy Tavares Authenticated and [facility]
== END 2025-03-21 23:59 | disposition home or self-care (01) ==
LOC: RAD 09:47
PROVIDERS: PCP Nurse Practitioner Family; Visit Provider Nurse Practitioner Family
DX: S69.92XA Unspecified injury of left wrist, hand and finger(s), initial encounter (principal); M25.532 Pain in left wrist
CPT/HCPCS: 73110